=== PATIENT | female | born 1955 | race Two or more races ===

== ENCOUNTER 2020-02-15 09:45 | Inpatient (IN) | payer MEDICARE, OTHER ==
[2020-02-15] VITALS (7 sets, daily range): BP systolic 98–143; BP diastolic 70–90
[~2020-02-15] VITALS: Ht 162.6 cm; Wt 67.5 kg
--- NOTE | 2020-02-15 09:52 | NUR ---
ED Nurse Note: Pt from home and was brought in by ambulance due to dizziness x 1 week. Patient also experiences loss of appetite and bloatedness. Last bowel movement was stated as "long ago." Pt is AAO x4, follows commands with non labored breathing. Noted abdominal distension.
[2020-02-15] MEDS ORDERED: Omnipaque-300 100ml vial INJ PRN (10:15)
--- NOTE | 2020-02-15 10:16 | NUR ---
ED Nurse Note: Collected blood and urine then sent.
--- NOTE | 2020-02-15 10:20 | NUR ---
ED Nurse Note: Radiology Иван at the bed side for xray.
--- NOTE | 2020-02-15 10:30 | Emergency Room Report ---
History of Present Illness General Chief Complaint: Dizziness Source: Patient Present Illness HPI This patient states that she has felt lightheaded, fatigued and has had a lack of appetite for about the past week. She states that this is lightheadedness and not vertigo. She has had some nausea but denies vomiting. She denies fever or chills. She denies dysuria or hematuria. She denies abdominal pain. She denies headache or neck pain. She denies cough or congestion. She denies chest pain or shortness of breath. She denies trauma or falls. She has no other complaints. Allergies: Coded Allergies: No Known Allergies (Unverified , 02/15/20) COVID-19 Screening Contact w/high risk pt: No Experienced COVID-19 symptoms?: No COVID-19 Testing performed CHAUFFEUR: No Patient History Past Medical History: see triage record, HTN Social History: Denies: smoking, alcohol use, drug use Reviewed Nursing Documentation: PMH: Agreed; PSxH: Agreed Nursing Documentation-PMH Past Medical History: No History, Except For Hx Hypertension: Yes Review of Systems All Other Systems: negative except mentioned in HPI Physical Exam Vital Signs Date Time Temp Pulse Resp B/P (MAP) Pulse Ox O2 Delivery O2 Flow Rate FiO2 02/15/20 09:42 98.2 120 20 128/87 (101) 98 Room Air Sp02 EP Interpretation: reviewed, normal General Appearance: no apparent distress, alert, GCS 15, non-toxic Head: normocephalic, atraumatic Eyes: bilateral eye normal inspection, bilateral eye PERRL ENT: hearing grossly normal, normal pharynx, no angioedema, normal voice Neck: normal inspection, full range of motion, supple/symm/no masses Respiratory: chest non-tender, lungs clear, normal breath sounds, no respiratory distress, no retraction, no accessory muscle use, speaking full sentences Cardiovascular #1: no edema, tachycardia Gastrointestinal: normal bowel sounds, non tender, soft, no guarding, no rebound, distended Rectal: deferred Musculoskeletal: back normal, normal range of motion, gait/station normal, non- tender Neurologic: alert, motor strength/tone normal, oriented x3, sensory intact, responsive, speech normal Psychiatric: judgement/insight normal, memory normal, mood/affect normal, no suicidal/homicidal ideation Skin: no rash, normal color Medical Decision Making Diagnostic Impression: Primary Impression: Large bowel obstruction Additional Impression: Hypokalemia ER Course This patient presents with a nonspecific pain of lightheadedness and decreased appetite and fatigue. My differential diagnosis includes arrhythmia, [place], infection, anemia, electrolyte abnormality to name a few. On physical exam, the patient's abdomen is more distended than I would expect for her weight. Given this finding on exam, although nontender and no obvious mass on physical exam, I felt that I should obtain a CT of the abdomen and pelvis. When I inquired into how long the patient has had this distended abdomen, she states approximately a week, however, she then states that her primary physician had scheduled her for a colonoscopy. EKG had some nonspecific ST segment findings by me concerned for possible ischemia. Laboratory work-up showed significant hypokalemia. The patient was started on IV replacement potassium chloride. I suspect this is secondary to poor oral intake and possibly in combination with her use of hydrochlorothiazide. CT of the abdomen pelvis showed a dilated colon with a po ssible transition point at the recto-sigmoid transition. The patient is also cachectic and I am concerned she has undiagnosed colon cancer. The patient is admitted for further evaluation and treatment by gastroenterology and general surgery. This patient was evaluated in the context of the global COVID-19 pandemic, which necessitated consideration that the patient might be at risk for infection with the [id number] virus that causes COVID-19. Institutional protocols and algorithms that pertain to the evaluation of patients at risk for COVID-19 and the state of rapid change based on information released by multiple regulatory bodies including the CDC and federal and state organizations. These policies and algorithms were followed during the patient's care in the ED. Laboratory Tests Test 02/15/20 10:10 White Blood Count 9.1 K/UL (4.8-10.8) Red Blood Count 4.18 M/UL (4.20-5.40) L Hemoglobin 12.1 G/DL (12.0-16.0) Hematocrit 36.9 % (37.0-47.0) L Mean Corpuscular Volume 88 FL (80-99) Mean Corpuscular Hemoglobin 28.8 PG (27.0-31.0) Mean Corpuscular Hemoglobin Concent 32.7 G/DL (32.0-36.0) Red Cell Distribution Width 13.4 % (11.6-14.8) Platelet Count 212 K/UL (150-450) Mean Platelet Volume 6.5 FL (6.5-10.1) Neutrophils (%) (Auto) 82.2 % (45.0-75.0) H Lymphocytes (%) (Auto) 11.9 % (20.0-45.0) L Monocytes (%) (Auto) 5.0 % (1.0-10.0) Eosinophils (%) (Auto) 0.0 % (0.0-3.0) Basophils (%) (Auto) 0.8 % (0.0-2.0) Prothrombin Time 13.6 SEC (9.30-11.50) H Prothrombin Time INR 1.3 (0.9-1.1) H Activated Partial Thromboplast Time 21 SEC (23-33) L Urine Color Yellow Urine Appearance Slightly cloudy Urine pH 6 (4.5-8.0) Urine Specific [place] 1.015 (1.005-1.035) Urine Protein 3+ (NEGATIVE) H Urine Glucose (UA) Negative (NEGATIVE) Urine Ketones 3+ (NEGATIVE) H Urine Blood 4+ (NEGATIVE) H Urine Nitrite Negative (NEGATIVE) Urine Bilirubin 2+ (NEGATIVE) H Urine Ictotest Negative (NEGATIVE) Urine Urobilinogen 4 MG/DL (0.0-1.0) H Urine Leukocyte Esterase 1+ (NEGATIVE) H Urine RBC 15-20 /HPF (0 - 2) H Urine WBC 2-4 /HPF (0 - 2) Urine Squamous Epithelial Cells Few /LPF (NONE/OCC) Urine Bacteria Few /HPF (NONE) Urine Mucus Few /LPF (NONE/OCC) H Sodium Level 144 MMOL/L (136-145) Potassium Level 2.0 MMOL/L (3.5-5.1) *L Chloride Level 93 MMOL/L (98-107) L Carbon Dioxide Level 32 MMOL/L (21-32) Anion Gap 20 mmol/L (5-15) H Blood Urea Nitrogen 27 mg/dL (7-18) H Creatinine 1.4 MG/DL (0.55-1.30) H Estimated Glomerular Filtration Rate 37.6 mL/min (>60) Glucose Level 143 MG/DL (74-106) H Calcium Level 8.5 MG/DL (8.5-10.1) Total Bilirubin 1.2 MG/DL (0.2-1.0) H Direct Bilirubin 0.3 MG/DL (0.0-0.3) Aspartate Amino Transferase (AST) 35 U/L (15-37) Alanine Aminotransferase (ALT) 18 U/L (12-78) Alkaline Phosphatase 60 U/L (46-116) Troponin I 0.054 ng/mL (0.000-0.056) Total Protein 6.4 G/DL (6.4-8.2) Albumin 3.5 G/DL (3.4-5.0) Globulin 2.9 g/dL Thyroid Stimulating Hormone (TSH) 1.756 uiU/mL (0.358-3.740) Free Thyroxine 1.37 NG/DL (0.76-1.46) Free Triiodothyronine 1.3 pg/mL (2.3-4.2) L Microbiology Date/Time Source Procedure Growth Status 02/15/20 11:00 Nasopharynx SARS-CoV-2 RdRp Gene Assay - Final Complete EKG Diagnostic Results Rate: tachycardiac Rhythm: other - S.tachycardia ST Segments: other - NSST depressions in leads V2, V3, V4 more significantly with diffuse ST flattening. Rhythm Strip Diag. Results EP Interpretation: yes Rate: 90's Rhythm: NSR, no PVC's, no ectopy Chest X-Ray Diagnostic Results Chest X-Ray Diagnostic Results : Chest X-Ray Ordered: Yes # of Views/Limited/Complete: 1 View Indication: Other EP Interpretation: Yes Interpretation: no consolidation, no effusion, no pneumothorax, no acute cardiopulmonary disease Impression: No acute disease Electronically Signed by: Zahra Portillo DO CT/MRI/US Diagnostic Results CT/MRI/US Diagnostic Results : Imaging Test Ordered: CT abd/pelvis Impression IMPRESSION: SEVERE COLONIC DISTENTION WITH AIR-FLUID LEVELS AND STOOL DEBRIS. THERE IS APPARENT TRANSITION AT THE RECTOSIGMOID JUNCTION WITH A RELATIVELY EMPTY RECTAL VAULT WITH ONLY SMALL AMOUNT OF STOOL. NO DEFINITE DISCERNIBLE MASS AT THE TRANSITION POINT. RECOMMEND GI CONSULTATION AND CONSIDER COLONOSCOPY. Last Vital Signs Date Time Temp Pulse Resp B/P (MAP) Pulse Ox O2 Delivery O2 Flow Rate FiO2 02/15/20 09:52 98.2 110 16 98/71 98 Room Air Disposition: ADMITTED INPATIENT Condition: Serious Referrals: NON PHYSICIAN (PCP) Zarha Portillo DO Feb 15, 2020 10:30
[2020-02-15 10:37] LABS: APPEARANCE,URINE SLIGHTLY CLOUDY; BILIRUBIN, URINE 2+ (NEGATIVE); GLUCOSE, URINE (UA) NEGATIVE (NEGATIVE); KETONES,URINE 3+ (NEGATIVE); LEUKOCYTE ESTERASE ,URINE 1+ (NEGATIVE); NITRITE,URINE NEGATIVE (NEGATIVE); PH,URINE 6 (4.5-8.0); PROTEIN,URINE 3+ (NEGATIVE); UROBILINOGEN,URINE 4 MG/DL (0.0-1.0)
[2020-02-15 10:38] LABS: BASOPHILS % (AUTO) 0.8 % (0.0-2.0); HEMATOCRIT 36.9 % (37.0-47.0); HEMOGLOBIN 12.1 G/DL (12.0-16.0); LYMPHOCYTES % (AUTO) 11.9 % (20.0-45.0); MEAN CORPUSCULAR VOLUME 88 FL (80-99); NEUTROPHILS % (AUTO) 82.2 % (45.0-75.0); PLATELET COUNT 212 K/UL (150-450); RED BLOOD COUNT 4.18 M/UL (4.20-5.40); RED CELL DISTRIBUTION WIDTH 13.4 % (11.6-14.8); WHITE BLOOD COUNT 9.1 K/UL (4.8-10.8)
[2020-02-15 10:43] LABS: COLOR,URINE YELLOW
[2020-02-15 10:51] LABS: INR 1.3 (0.9-1.1)
[2020-02-15 10:54] LABS: ALBUMIN 3.5 G/DL (3.4-5.0); ASPARTATE AMINO TRANSFERASE 35 U/L (15-37); BLOOD UREA NITROGEN 27 mg/dL (7-18); CALCIUM 8.5 MG/DL (8.5-10.1); CREATININE 1.4 MG/DL (0.55-1.30)
[2020-02-15 11:18] LABS: ALKALINE PHOSPHATASE 60 U/L (46-116); BILIRUBIN,TOTAL 1.2 MG/DL (0.2-1.0)
--- NOTE | 2020-02-15 11:23 | Diagnostic Imaging Report ---
Procedure: XRAY Chest 1v Reason for study: Shortness of breath. Comparison films: None. FINDINGS: A single one view chest is obtained. Vascularity is normal. The lung thomson are clear bilaterally. Cardiac and mediastinal silhouette are within normal limits. CP angles are sharp. The bony thorax appear unremarkable. IMPRESSION: NO ACUTE CARDIOPULMONARY DISEASE.
[2020-02-15 11:27] LABS: ALANINE AMINOTRANSFERASE 18 U/L (12-78); ANION GAP 20 mmol/L (5-15); CARBON DIOXIDE 32 MMOL/L (21-32); CHLORIDE 93 MMOL/L (98-107); SODIUM 144 MMOL/L (136-145)
--- NOTE | 2020-02-15 11:47 | Diagnostic Imaging Report ---
EXAM: CT CT Abdomen Pelvis w/Contrast INDICATION: Abdominal pain. COMPARISON: None TECHNIQUE: Axial images were obtained through the abdomen pelvis with intravenous contrast. Sagittal and coronal reformats are generated. All CT scans at this facility are performed using dose modulation techniques as appropriate to a performed exam including the following: automated exposure control with adjustment of the mA and/or kV according to patient size. RADIATION DOSE: CTDIvol: 2.9 mGy DLP: 137 mGy-cm Dose information generated by the CT scanner is available in PACS. FINDINGS: Mild atelectasis noted right lung base. There are several circumscribed low-density nonenhancing cysts noted in the liver. The spleen is homogeneous. Gallbladder is without sludge or stone and there is no wall thickening. The pancreas is unremarkable. Adrenals are normal in morphology. The kidneys are normal in size, shape and axis. Small bowel loops are nondistended. The dominant abnormality is severe colonic distention containing air-fluid levels and stool debris. Dilated colon extends down to the rectosigmoid junction where there is an apparent transition. The rectal vault is nondistended with only a small amount of stool. No definite discernible mass is detected there is There is no free fluid or free air. No pathologic adenopathy demonstrated. Bladder is empty. There is no suspicious superficial soft tissue or osseous abnormality. IMPRESSION: SEVERE COLONIC DISTENTION WITH AIR-FLUID LEVELS AND STOOL DEBRIS. THERE IS APPARENT TRANSITION AT THE RECTOSIGMOID JUNCTION WITH A RELATIVELY EMPTY RECTAL VAULT WITH ONLY SMALL AMOUNT OF STOOL. NO DEFINITE DISCERNIBLE MASS AT THE TRANSITION POINT. RECOMMEND GI CONSULTATION AND CONSIDER COLONOSCOPY.
[2020-02-15 11:54] LABS: BILIRUBIN,DIRECT 0.3 MG/DL (0.0-0.3)
--- NOTE | 2020-02-15 11:57 | NUR ---
ED Nurse Note: JORDAN MADE AWARE OF THE PT.'S POTASSIUM LEVEL
[2020-02-15] MEDS ORDERED: HYDROCHLOROTHIA25 MG ORAL (12:09)
--- NOTE | 2020-02-15 13:55 | NUR ---
ED Nurse Note: Patient is resting on bed with no distress. IV fluids and potassium drip are running per ERMD order. Blankets provided for comfort.
--- NOTE | 2020-02-15 15:50 | NUR ---
ED Nurse Note: Report given to Nuvia GARZON of telemetry unit.
--- NOTE | 2020-02-15 15:52 | NUR ---
NURSE NOTES: RECEIVED REPORT FROM JOURDAN GARZON IN ER. AWAITING EVS TO CLEAN THE ROOM WITH CLEAN BED. WILL CALL ER SOON IT'S DONE.
--- NOTE | 2020-02-15 15:53 | Consultation ---
History of Present Illness General Date patient seen: Feb 15, 2020 Time patient seen: 15:51 Chief Complaint: Dizziness Present Illness HPI This is a very pleasant 64-year-old female who presented to [facility] with complaints of decreased appetite dizziness and abdominal bloating. On examination was identified to have significant abdominal distention and CT was ordered identifying colonic distention with transition point potential large bowel obstruction. Surgery was called to evaluate and assist with care. Patient seen, patient evaluated, chart reviewed. Patient states that she feels well does not have any pain has been able to tolerate diet recently is beginning to develop worsening nausea and throwing up of liquid clear. Cannot recall last bowel movement or flatus. Has not been eating very well. States distention ongoing for a little bit longer than she can remember. Allergies: Coded Allergies: No Known Allergies (Unverified , 02/15/20) Medication History Scheduled Hydrochlorothiazide* (Hydrochlorothiazide*), 25 MG ORAL DAILY, (Reported) Patient History Healthcare decision maker Resuscitation status Advanced Directive on File Review of Systems Constitutional: Reports: no symptoms Eye: Reports: no symptoms ENT: Reports: no symptoms Respiratory: Reports: no symptoms Cardiovascular: Reports: no symptoms Gastrointestinal: Reports: abdominal pain, constipation Genitourinary: Reports: no symptoms Musculoskeletal: Reports: no symptoms Skin: Reports: no symptoms Psychiatric: Reports: no symptoms Neurological: Reports: dizziness Endocrine: Reports: no symptoms Hematologic/Lymphatic: Reports: no symptoms Physical Exam General Appearance: no apparent distress, alert Lines, tubes and drains: peripheral HEENT: normocephalic, atraumatic Neck: non-tender, normal alignment, supple, normal inspection Respiratory/Chest: chest wall non-tender, lungs clear, normal breath sounds, no respiratory distress, no accessory muscle use Cardiovascular/Chest: normal peripheral pulses, normal rate, regular rhythm Abdomen: normal bowel sounds, non tender, soft, no organomegaly, no mass Extremities: normal range of motion, non-tender, normal inspection, no calf tenderness, normal capillary refill, non-pitting Skin Exam: normal pigmentation, warm/dry, cyanotic 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, no motor/sensory deficits Last 24 Hour Vital Signs Date Time Temp Pulse Resp B/P (MAP) Pulse Ox O2 Delivery O2 Flow Rate FiO2 02/15/20 15:41 98.1 85 16 142/90 98 Room Air 02/15/20 13:55 97.9 88 18 140/84 97 Room Air 02/15/20 12:04 98.5 98 15 140/85 99 Room Air 02/15/20 09:52 98.2 110 16 98/71 98 Room Air 02/15/20 09:52 110 16 Room Air 02/15/20 09:42 98.2 120 20 128/87 (101) 98 Room Air Laboratory Tests Test 02/15/20 10:10 White Blood Count 9.1 K/UL (4.8-10.8) Red Blood Count 4.18 M/UL (4.20-5.40) L Hemoglobin 12.1 G/DL (12.0-16.0) Hematocrit 36.9 % (37.0-47.0) L Mean Corpuscular Volume 88 FL (80-99) Mean Corpuscular Hemoglobin 28.8 PG (27.0-31.0) Mean Corpuscular Hemoglobin Concent 32.7 G/DL (32.0-36.0) Red Cell Distribution Width 13.4 % (11.6-14.8) Platelet Count 212 K/UL (150-450) Mean Platelet Volume 6.5 FL (6.5-10.1) Neutrophils (%) (Auto) 82.2 % (45.0-75.0) H Lymphocytes (%) (Auto) 11.9 % (20.0-45.0) L Monocytes (%) (Auto) 5.0 % (1.0-10.0) Eosinophils (%) (Auto) 0.0 % (0.0-3.0) Basophils (%) (Auto) 0.8 % (0.0-2.0) Prothrombin Time 13.6 SEC (9.30-11.50) H Prothromb Time International Ratio 1.3 (0.9-1.1) H Activated Partial Thromboplast Time 21 SEC (23-33) L Urine Color Yellow Urine Appearance Slightly cloudy Urine pH 6 (4.5-8.0) Urine Specific [place] 1.015 (1.005-1.035) Urine Protein 3+ (NEGATIVE) H Urine Glucose (UA) Negative (NEGATIVE) Urine Ketones 3+ (NEGATIVE) H Urine Blood 4+ (NEGATIVE) H Urine Nitrite Negative (NEGATIVE) Urine Bilirubin 2+ (NEGATIVE) H Urine Ictotest Negative (NEGATIVE) Urine Urobilinogen 4 MG/DL (0.0-1.0) H Urine Leukocyte Esterase 1+ (NEGATIVE) H Urine RBC 15-20 /HPF (0 - 2) H Urine WBC 2-4 /HPF (0 - 2) Urine Squamous Epithelial Cells Few /LPF (NONE/OCC) Urine Bacteria Few /HPF (NONE) Urine Mucus Few /LPF (NONE/OCC) H Sodium Level 144 MMOL/L (136-145) Potassium Level 2.0 MMOL/L (3.5-5.1) *L Chloride Level 93 MMOL/L (98-107) L Carbon Dioxide Level 32 MMOL/L (21-32) Anion Gap 20 mmol/L (5-15) H Blood Urea Nitrogen 27 mg/dL (7-18) H Creatinine 1.4 MG/DL (0.55-1.30) H Estimat Glomerular Filtration Rate 37.6 mL/min (>60) Glucose Level 143 MG/DL (74-106) H Calcium Level 8.5 MG/DL (8.5-10.1) Total Bilirubin 1.2 MG/DL (0.2-1.0) H Direct Bilirubin 0.3 MG/DL (0.0-0.3) Aspartate Amino Transf (AST/SGOT) 35 U/L (15-37) Alanine Aminotransferase (ALT/SGPT) 18 U/L (12-78) Alkaline Phosphatase 60 U/L (46-116) Troponin I 0.054 ng/mL (0.000-0.056) Total Protein 6.4 G/DL (6.4-8.2) Albumin 3.5 G/DL (3.4-5.0) Globulin 2.9 g/dL Thyroid Stimulating Hormone (TSH) 1.756 uiU/mL (0.358-3.740) Free Thyroxine 1.37 NG/DL (0.76-1.46) Free Triiodothyronine 1.3 pg/mL (2.3-4.2) L Microbiology Date/Time Source Procedure Growth Status 02/15/20 11:00 Nasopharynx SARS-CoV-2 RdRp Gene Assay - Final Complete Height (Feet): 5 Height (Inches): 4.00 Weight (Pounds): 110 Medications Current Medications Medications (Trade) Dose Ordered Sig/Fozia Route PRN Reason Start Time Stop Time Status Last Admin Dose Admin Iohexol (OMNIPAQUE-300 100ml) 100 ml NOW PRN INJ Radiology Procedure 02/15/20 10:15 02/17/20 10:03 Assessment/Plan Status: stable Assessment/Plan: Assessment (1) Large bowel obstruction (2) Hypokalemia (3) Lightheaded (4) Palpitations (5) Dizziness Plan: clear to proceed with colonoscopy Low risk of MACE <0.9 percent Continue IV fluids Outpatient Echocardiogram/stress test per routine Roby Reyes MD Feb 15, 2020 15:53
--- NOTE | 2020-02-15 16:11 | NUR ---
ED Nurse Note: patient transferred to telemetry unit with all her belongings. Stable for transport.
[2020-02-15] MEDS ORDERED: Hydromorphone 0.5mg/0.5ml inj IVP PRN (16:15)
--- NOTE | 2020-02-15 17:12 | NUR ---
NURSE NOTES: ADMIT PATIENT FROM ER VIA GURNEY TO TELE RM 201-2. PATIENT IS AAO X4, DENIES ANY PAIN AT THIS TIME. NOTED PATIENT HAS A DISTENDED ABDOMEN, DENIES ANY PAIN. SKIN IS INTACT AND WARM ON TOUCH. 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 PATIENT BELONGING LIST ACKNOWLEDGED AND SIGNED BY BOTH NURSES. NOTIFIED DR. LUCIA OF PATIENT'S ADMISSION. ADMISSION ORDER RECEIVED AND CARRIED OUT. PATIENT IS NPO. WILL CONTINUE TO MONITOR.
--- NOTE | 2020-02-15 18:01 | Consultation ---
History of Present Illness General Date patient seen: Feb 15, 2020 Reason for Hospitalization: Dizziness Present Illness HPI This is a very pleasant 64-year-old female who presented to [facility] with complaints of decreased appetite dizziness and abdominal bloating. On examination was identified to have significant abdominal distention and CT was ordered identifying colonic distention with transition point potential large bowel obstruction. Surgery was called to evaluate and assist with care. Patient seen, patient evaluated, chart reviewed. Patient states that she feels well does not have any pain has been able to tolerate diet recently is beginning to develop worsening nausea and throwing up of liquid clear. Cannot recall last bowel movement or flatus. Has not been eating very well. States distention ongoing for a little bit longer than she can remember. CT reviewed labs reviewed Allergies: Coded Allergies: No Known Allergies (Unverified , 02/15/20) COVID-19 Screening Contact w/high risk pt: No Experienced COVID-19 symptoms?: No Medication History Scheduled Hydrochlorothiazide* (Hydrochlorothiazide*), 25 MG ORAL DAILY, (Reported) Patient History History Provided By: Patient, Medical Record, PMD Healthcare decision maker Resuscitation status Advanced Directive on File Past Medical/Surgical History Past Medical/Surgical History: (1) Lightheaded (2) Hypokalemia (3) Large bowel obstruction Review of Systems Review of Symptoms General ROS: no weight loss or fever Psychological ROS: no depression or mood changes, no memory loss Ophthalmic ROS: no visual changes or eye irritation ENT ROS: no nasal congestion, hearing loss, dizziness Allergy and Immunology ROS: no allergic symptoms or urticaria Hematological and Lymphatic ROS: no swollen glands, unusual bleeding or bruising Endocrine ROS: no polyuria, polydipsia, weight changes, temperature intolerance Respiratory ROS: no cough, shortness of breath, or wheezing Cardiovascular ROS: no chest pain or dyspnea on exertion Gastrointestinal ROS: denies abdominal pain, bright red blood in stool. Musculoskeletal ROS: no myalgias or arthralgias Neurological ROS: no TIA or stroke symptoms Dermatological ROS: no new or changing skin lesions, rashes or pruritis Physical Exam Physical Exam General appearance: alert, cooperative, no distress, appears stated age Head: Normocephalic, without obvious abnormality, atraumatic Eyes: conjunctivae/corneas clear. PERRL, EOM's intact. Fundi benign Throat: Lips, mucosa, and tongue normal. Teeth and gums normal Neck: supple, symmetrical, trachea midline, no adenopathy, thyroid: not enlarged, symmetric, no tenderness/mass/nodules, no carotid bruit and no JVD Lungs: clear to auscultation bilaterally Heart: regular rate and rhythm, S1, S2 normal, no murmur, click, rub or gallop Abdomen: soft, non-tender. Bowel sounds decreased. gaseous distended No masses , no organomegaly Extremities: extremities normal, atraumatic, no cyanosis or edema Pulses: 2+ and symmetric Skin: Skin color, texture, turgor normal. No rashes or lesions Neurologic: Grossly normal Last 24 Hour Vital Signs Date Time Temp Pulse Resp B/P (MAP) Pulse Ox O2 Delivery O2 Flow Rate FiO2 02/15/20 17:03 97.7 71 18 143/80 (101) 98 02/15/20 16:59 Room Air 02/15/20 16:49 Room Air 02/15/20 16:11 98.1 87 15 138/89 99 Room Air 02/15/20 16:00 97.7 82 18 140/76 (97) 98 02/15/20 16:00 82 02/15/20 15:41 98.1 85 16 142/90 98 Room Air 02/15/20 13:55 97.9 88 18 140/84 97 Room Air 02/15/20 12:04 98.5 98 15 140/85 99 Room Air 02/15/20 09:52 98.2 110 16 98/71 98 Room Air 02/15/20 09:52 110 16 Room Air 02/15/20 09:42 98.2 120 20 128/87 (101) 98 Room Air Laboratory Tests Test 02/15/20 10:10 White Blood Count 9.1 K/UL (4.8-10.8) Red Blood Count 4.18 M/UL (4.20-5.40) L Hemoglobin 12.1 G/DL (12.0-16.0) Hematocrit 36.9 % (37.0-47.0) L Mean Corpuscular Volume 88 FL (80-99) Mean Corpuscular Hemoglobin 28.8 PG (27.0-31.0) Mean Corpuscular Hemoglobin Concent 32.7 G/DL (32.0-36.0) Red Cell Distribution Width 13.4 % (11.6-14.8) Platelet Count 212 K/UL (150-450) Mean Platelet Volume 6.5 FL (6.5-10.1) Neutrophils (%) (Auto) 82.2 % (45.0-75.0) H Lymphocytes (%) (Auto) 11.9 % (20.0-45.0) L Monocytes (%) (Auto) 5.0 % (1.0-10.0) Eosinophils (%) (Auto) 0.0 % (0.0-3.0) Basophils (%) (Auto) 0.8 % (0.0-2.0) Prothrombin Time 13.6 SEC (9.30-11.50) H Prothromb Time International Ratio 1.3 (0.9-1.1) H Activated Partial Thromboplast Time 21 SEC (23-33) L Urine Color Yellow Urine Appearance Slightly cloudy Urine pH 6 (4.5-8.0) Urine Specific [place] 1.015 (1.005-1.035) Urine Protein 3+ (NEGATIVE) H Urine Glucose (UA) Negative (NEGATIVE) Urine Ketones 3+ (NEGATIVE) H Urine Blood 4+ (NEGATIVE) H Urine Nitrite Negative (NEGATIVE) Urine Bilirubin 2+ (NEGATIVE) H Urine Ictotest Negative (NEGATIVE) Urine Urobilinogen 4 MG/DL (0.0-1.0) H Urine Leukocyte Esterase 1+ (NEGATIVE) H Urine RBC 15-20 /HPF (0 - 2) H Urine WBC 2-4 /HPF (0 - 2) Urine Squamous Epithelial Cells Few /LPF (NONE/OCC) Urine Bacteria Few /HPF (NONE) Urine Mucus Few /LPF (NONE/OCC) H Sodium Level 144 MMOL/L (136-145) Potassium Level 2.0 MMOL/L (3.5-5.1) *L Chloride Level 93 MMOL/L (98-107) L Carbon Dioxide Level 32 MMOL/L (21-32) Anion Gap 20 mmol/L (5-15) H Blood Urea Nitrogen 27 mg/dL (7-18) H Creatinine 1.4 MG/DL (0.55-1.30) H Estimat Glomerular Filtration Rate 37.6 mL/min (>60) Glucose Level 143 MG/DL (74-106) H Calcium Level 8.5 MG/DL (8.5-10.1) Total Bilirubin 1.2 MG/DL (0.2-1.0) H Direct Bilirubin 0.3 MG/DL (0.0-0.3) Aspartate Amino Transf (AST/SGOT) 35 U/L (15-37) Alanine Aminotransferase (ALT/SGPT) 18 U/L (12-78) Alkaline Phosphatase 60 U/L (46-116) Troponin I 0.054 ng/mL (0.000-0.056) Total Protein 6.4 G/DL (6.4-8.2) Albumin 3.5 G/DL (3.4-5.0) Globulin 2.9 g/dL Thyroid Stimulating Hormone (TSH) 1.756 uiU/mL (0.358-3.740) Free Thyroxine 1.37 NG/DL (0.76-1.46) Free Triiodothyronine 1.3 pg/mL (2.3-4.2) L Microbiology Date/Time Source Procedure Growth Status 02/15/20 11:00 Nasopharynx SARS-CoV-2 RdRp Gene Assay - Final Complete Height (Feet): 5 Height (Inches): 4.00 Weight (Pounds): 110 Medications Current Medications Medications (Trade) Dose Ordered Sig/Fozia Route PRN Reason Start Time Stop Time Status Last Admin Dose Admin Hydromorphone HCl (Dilaudid) 0.5 mg Q4H PRN IVP For Pain 02/15/20 16:15 02/22/20 16:14 Iohexol (OMNIPAQUE-300 100ml) 100 ml NOW PRN INJ Radiology Procedure 02/15/20 10:15 02/17/20 10:03 Ondansetron HCl (Zofran) 4 mg Q6H PRN IVP Nausea & Vomiting 02/15/20 16:15 03/16/20 16:14 Potassium Chloride/Sodium Chloride 1,000 ml @ 50 mls/hr Q20H IV 02/15/20 18:00 03/16/20 17:59 Assessment/Plan Problem List: (1) Lightheaded ICD Codes: R42 - Dizziness and giddiness SNOMED: 242986752 (2) Hypokalemia ICD Codes: E87.6 - Hypokalemia SNOMED: 02022908 (3) Large bowel obstruction Assessment & Plan: 64-year-old female with abdominal distention potential large bowel obstruction. Afebrile, hemodynamic stable, labs noted no leukocytosis no pain no bleeding. No prior abdominal surgeries. Nausea and emesis clear liquid. Decreased appetite. Cannot recall last flatus or BM. CT as below. No direct mass or abnormality identified but there is absolutely identifiable transition at the rectosigmoid area with proximal dilatation. A colonoscopy is warranted but though would be with definitive risk of potential perforation. GI consult pending. Replace electrolytes. N.p.o. IV fluids will await scope for findings. Conceivably may require surgical intervention. Thank you for let me participate in patient's care will follow with recommendations There are several circumscribed low-density nonenhancing cysts noted in the liver. The spleen is homogeneous. Gallbladder is without sludge or stone and there is no wall thickening. The pancreas is unremarkable. Adrenals are normal in morphology. The kidneys are normal in size, shape and axis. Small bowel loops are nondistended. The dominant abnormality is severe colonic distention containing air-fluid levels and stool debris. Dilated colon extends down to the rectosigmoid junction where there is an apparent transition. The rectal vault is nondistended with only a small amount of stool. No definite discernible mass is detected there is There is no free fluid or free air. No pathologic adenopathy demonstrated. Bladder is empty. There is no suspicious superficial soft tissue or osseous abnormality. IMPRESSION: SEVERE COLONIC DISTENTION WITH AIR-FLUID LEVELS AND STOOL DEBRIS. THERE IS APPARENT TRANSITION AT THE RECTOSIGMOID JUNCTION WITH A RELATIVELY EMPTY RECTAL VAULT WITH ONLY SMALL AMOUNT OF STOOL. NO DEFINITE DISCERNIBLE MASS AT THE TRANSITION POINT. RECOMMEND GI CONSULTATION AND CONSIDER COLONOSCOPY. ICD Codes: K56.609 - Unspecified intestinal obstruction, unspecified as to partial versus complete obstruction SNOMED: 820012663 Swapnil Brito Feb 15, 2020 18:01
[2020-02-15] MEDS: NS w/KCl 20mEq 1000ml 1,000 ML IV SCH (18:19)
--- NOTE | 2020-02-15 18:37 | NUR ---
NURSE HAND-OFF REPORT: Important Events on Shift: New Admission Patient Status: Stable Diet: NPO Pending Orders: Pending Results/Labs:Y Pending notification:B Latest Vital Signs: Temperature 97.7 , Pulse 71 , B/P 143 /80 , Respiratory Rate 18 , O2 SAT 98 , Room Air, O2 Flow Rate . Vital Sign Comment: Stable EKG Rhythm: Sinus Rhythm Rhythm change?: N MD Notified?: - MD Response: Latest Scherer Fall Score: 20 Fall Risk: Low Risk Safety Measures: Call light Within Reach, Bed Alarm Zone 3, Side Rails Side Rails x3, Bed position Low and Locked. Fall Precautions: Yellow Socks Yellow Gown Door Sign Patient Fall Education Report given to . Addendum: 02/15/20 at 1906 by ZEN MARTIN RN Report given Sobeida GARZON
--- NOTE | 2020-02-15 19:30 | NUR ---
NURSE NOTES: Received report from RYANN Pedersen. Patient is awake, alert and oriented x 4. On NPO except meds/ice chips. On room air, with no shortness of breath reported, sating 95%. machine lead burner is in place, shows sinus rhythm and no chest pain complaints at this time. IV site is on left AC g-20, running fluid of NS + 20 meqs KCL @ 50cc/hour that is patent and intact. Patient is on bedrest. Safety measures are in place, bed in lowest and locked position, side rails up x 2. Call light button and bedside table within reach, instructed to call for any assistance needed. Will continue plan of care.
--- NOTE | 2020-02-15 22:08 | Consultation ---
History of Present Illness General Chief Complaint: Dizziness Present Illness HPI 64-year-old female who presented to [facility] with complaints of decreased appetite dizziness and abdominal bloating. On examination was identified to have significant abdominal distention and CT was ordered i dentifying colonic distention with transition point potential large bowel obstruction. Surgery was called to evaluate and assist with care. Patient seen, patient evaluated, chart reviewed. Patient states that she feels well does not have any pain has been able to tolerate diet recently is beginning to develop worsening nausea and throwing up of liquid clear. Cannot recall last bowel movement or flatus. Has not been eating very well. States distention ongoing for a little bit longer than she can remember. Allergies: Coded Allergies: No Known Allergies (Unverified , 02/15/20) Medication History Scheduled Hydrochlorothiazide* (Hydrochlorothiazide*), 25 MG ORAL DAILY, (Reported) Patient History Healthcare decision maker Resuscitation status Advanced Directive on File Review of Systems All Other Systems: negative except mentioned in HPI Physical Exam General Appearance: no apparent distress, lethargic Lines, tubes and drains: peripheral HEENT: normocephalic, atraumatic Neck: non-tender, normal alignment Respiratory/Chest: chest wall non-tender, lungs clear Cardiovascular/Chest: normal peripheral pulses, normal rate Abdomen: hypoactive bowel sounds, distended Extremities: no edema Neurologic: alert, oriented x 3 Last 24 Hour Vital Signs Date Time Temp Pulse Resp B/P (MAP) Pulse Ox O2 Delivery O2 Flow Rate FiO2 02/15/20 21:00 Room Air 02/15/20 20:00 111 02/15/20 20:00 97.9 91 19 114/70 (85) 100 02/15/20 17:03 97.7 71 18 143/80 (101) 98 02/15/20 16:59 Room Air 02/15/20 16:49 Room Air 02/15/20 16:11 98.1 87 15 138/89 99 Room Air 02/15/20 16:00 97.7 82 18 140/76 (97) 98 02/15/20 16:00 82 02/15/20 15:41 98.1 85 16 142/90 98 Room Air 02/15/20 13:55 97.9 88 18 140/84 97 Room Air 02/15/20 12:04 98.5 98 15 140/85 99 Room Air 02/15/20 09:52 98.2 110 16 98/71 98 Room Air 02/15/20 09:52 110 16 Room Air 02/15/20 09:42 98.2 120 20 128/87 (101) 98 Room Air Laboratory Tests Test 02/15/20 10:10 White Blood Count 9.1 K/UL (4.8-10.8) Red Blood Count 4.18 M/UL (4.20-5.40) L Hemoglobin 12.1 G/DL (12.0-16.0) Hematocrit 36.9 % (37.0-47.0) L Mean Corpuscular Volume 88 FL (80-99) Mean Corpuscular Hemoglobin 28.8 PG (27.0-31.0) Mean Corpuscular Hemoglobin Concent 32.7 G/DL (32.0-36.0) Red Cell Distribution Width 13.4 % (11.6-14.8) Platelet Count 212 K/UL (150-450) Mean Platelet Volume 6.5 FL (6.5-10.1) Neutrophils (%) (Auto) 82.2 % (45.0-75.0) H Lymphocytes (%) (Auto) 11.9 % (20.0-45.0) L Monocytes (%) (Auto) 5.0 % (1.0-10.0) Eosinophils (%) (Auto) 0.0 % (0.0-3.0) Basophils (%) (Auto) 0.8 % (0.0-2.0) Prothrombin Time 13.6 SEC (9.30-11.50) H Prothromb Time International Ratio 1.3 (0.9-1.1) H Activated Partial Thromboplast Time 21 SEC (23-33) L Urine Color Yellow Urine Appearance Slightly cloudy Urine pH 6 (4.5-8.0) Urine Specific [place] 1.015 (1.005-1.035) Urine Protein 3+ (NEGATIVE) H Urine Glucose (UA) Negative (NEGATIVE) Urine Ketones 3+ (NEGATIVE) H Urine Blood 4+ (NEGATIVE) H Urine Nitrite Negative (NEGATIVE) Urine Bilirubin 2+ (NEGATIVE) H Urine Ictotest Negative (NEGATIVE) Urine Urobilinogen 4 MG/DL (0.0-1.0) H Urine Leukocyte Esterase 1+ (NEGATIVE) H Urine RBC 15-20 /HPF (0 - 2) H Urine WBC 2-4 /HPF (0 - 2) Urine Squamous Epithelial Cells Few /LPF (NONE/OCC) Urine Bacteria Few /HPF (NONE) Urine Mucus Few /LPF (NONE/OCC) H Sodium Level 144 MMOL/L (136-145) Potassium Level 2.0 MMOL/L (3.5-5.1) *L Chloride Level 93 MMOL/L (98-107) L Carbon Dioxide Level 32 MMOL/L (21-32) Anion Gap 20 mmol/L (5-15) H Blood Urea Nitrogen 27 mg/dL (7-18) H Creatinine 1.4 MG/DL (0.55-1.30) H Estimat Glomerular Filtration Rate 37.6 mL/min (>60) Glucose Level 143 MG/DL (74-106) H Calcium Level 8.5 MG/DL (8.5-10.1) Total Bilirubin 1.2 MG/DL (0.2-1.0) H Direct Bilirubin 0.3 MG/DL (0.0-0.3) Aspartate Amino Transf (AST/SGOT) 35 U/L (15-37) Alanine Aminotransferase (ALT/SGPT) 18 U/L (12-78) Alkaline Phosphatase 60 U/L (46-116) Troponin I 0.054 ng/mL (0.000-0.056) Total Protein 6.4 G/DL (6.4-8.2) Albumin 3.5 G/DL (3.4-5.0) Globulin 2.9 g/dL Thyroid Stimulating Hormone (TSH) 1.756 uiU/mL (0.358-3.740) Free Thyroxine 1.37 NG/DL (0.76-1.46) Free Triiodothyronine 1.3 pg/mL (2.3-4.2) L Microbiology Date/Time Source Procedure Growth Status 02/15/20 11:00 Nasopharynx SARS-CoV-2 RdRp Gene Assay - Final Complete Height (Feet): 5 Height (Inches): 4.00 Weight (Pounds): 110 Medications Current Medications Medications (Trade) Dose Ordered Sig/Fozia Route PRN Reason Start Time Stop Time Status Last Admin Dose Admin Hydromorphone HCl (Dilaudid) 0.5 mg Q4H PRN IVP For Pain 9/15/20 16:15 02/22/20 16:14 Iohexol (OMNIPAQUE-300 100ml) 100 ml NOW PRN INJ Radiology Procedure 02/15/20 10:15 02/17/20 10:03 Ondansetron HCl (Zofran) 4 mg Q6H PRN IVP Nausea & Vomiting 02/15/20 16:15 03/16/20 16:14 Potassium Chloride/Sodium Chloride 1,000 ml @ 50 mls/hr Q20H IV 02/15/20 18:00 03/16/20 17:59 02/15/20 18:19 Assessment/Plan Diagnosis [place]: #Severe hypokalemia #Abdominal distention - bowel obstruction #htn #Dehydration #HLD - IVF - replete K - NPO - monitor lytes - avoid nephrotoxins - GI eval - gen surgeval Yakelin Arnett M.D. Feb 15, 2020 22:08
[2020-02-16] VITALS: BP 102/66
[2020-02-16 00:05] LABS: ANION GAP 12 mmol/L (5-15); BLOOD UREA NITROGEN 19 mg/dL (7-18); CALCIUM 8.4 MG/DL (8.5-10.1); CARBON DIOXIDE 35 MMOL/L (21-32); CHLORIDE 97 MMOL/L (98-107); CREATININE 0.8 MG/DL (0.55-1.30); SODIUM 144 MMOL/L (136-145)
[2020-02-16 00:06] LABS: POTASSIUM 1.7 MMOL/L (3.5-5.1)
--- NOTE | 2020-02-16 00:30 | NUR ---
NURSE NOTES: Called Dr. Arnett and informed him about patient's potassium result which is 1.7. Received an order, will carry out. At this time, patient denies any weakness, muscle cramps nor palpitation at this time. Will continue to monitor.
[2020-02-16 04:00] VITALS: BP 109/61
--- NOTE | 2020-02-16 07:08 | NUR ---
NURSE NOTES: RECEIVED PATIENT AND REPORT FROM CADEN RN IN BED, DENIES ANY PAIN AT THIS TIME, NOTED PATIENT'S ABDOMEN IS STILL DISTENDED AND PATIENT DO NOT RECOLLECT THE LAST TIME SHE HAD A BOWEL MOVEMENT. DENIES ANY ABDOMINAL PAIN. IV IS INTACT AND PATENT. BED IS IN LOWEST POSITION, BEDSIDE RAILS UP X3, BRAKES ENGAGED FOR SAFETY. CALL LIGHT IS WITHIN REACH. PATIENT IS IN STABLE CONDITION AT THIS TIME. WILL CONTINUE WITH THE PLAN OF CARE.
--- NOTE | 2020-02-16 07:08 | NUR ---
NURSE HAND-OFF REPORT: Important Events on Shift: Patient's potassium level yesterday was 1.7, Dr. Arnett ordered 60 Meqs KCL (6 bafs of KCL). Patient Status: Patient is awake on bed, with no complaints made at this time. Still with no symptoms of hypokalemia noted and reported. RN made aware of plan of care. Diet: NPO except meds/ice chips Pending Orders: xray of abdomen Pending Results/Labs: CMP, Lipase, PT, APTT, CBC result Pending MD notification: Latest Vital Signs: Temperature 98.4 , Pulse 92 , B/P 109 /61 , Respiratory Rate 19 , O2 SAT 99 , Room Air, O2 Flow Rate . Vital Sign Comment: stable EKG Rhythm: Sinus Rhythm Rhythm change?: N MD Notified?: N - MD Response: Latest Scherer Fall Score: 20 Fall Risk: Low Risk Safety Measures: Call light Within Reach, Bed Alarm Zone 1, Side Rails Side Rails x2, Bed position Low and Locked. Fall Precautions: Patient Fall Education Report given to RYANN Pedersen.
[2020-02-16 07:20] LABS: BASOPHILS % (AUTO) 0.4 % (0.0-2.0); EOSINOPHILS % (AUTO) 0.1 % (0.0-3.0); HEMATOCRIT 30.6 % (37.0-47.0); HEMOGLOBIN 10.2 G/DL (12.0-16.0); LYMPHOCYTES % (AUTO) 18.9 % (20.0-45.0); MEAN CORPUSCULAR VOLUME 87 FL (80-99); MONOCYTES % (AUTO) 6.8 % (1.0-10.0); NEUTROPHILS % (AUTO) 73.8 % (45.0-75.0); PLATELET COUNT 179 K/UL (150-450); RED BLOOD COUNT 3.49 M/UL (4.20-5.40); RED CELL DISTRIBUTION WIDTH 13.5 % (11.6-14.8); WHITE BLOOD COUNT 5.3 K/UL (4.8-10.8)
[2020-02-16 07:42] LABS: ALANINE AMINOTRANSFERASE 16 U/L (12-78); ALBUMIN 2.7 G/DL (3.4-5.0); ALKALINE PHOSPHATASE 47 U/L (46-116); ANION GAP 13 mmol/L (5-15); ASPARTATE AMINO TRANSFERASE 33 U/L (15-37); BILIRUBIN,TOTAL 0.9 MG/DL (0.2-1.0); BLOOD UREA NITROGEN 19 mg/dL (7-18); CALCIUM 7.5 MG/DL (8.5-10.1); CARBON DIOXIDE 34 MMOL/L (21-32); CHLORIDE 101 MMOL/L (98-107); CREATININE 0.8 MG/DL (0.55-1.30); INR 1.3 (0.9-1.1); SODIUM 148 MMOL/L (136-145)
[2020-02-16 07:46] LABS: POTASSIUM 2.2 MMOL/L (3.5-5.1)
[2020-02-16 08:00] VITALS: BP 104/70
--- NOTE | 2020-02-16 08:15 | NUR ---
RD ASSESSMENT & RECOMMENDATIONS SEE CARE ACTIVITY FOR COMPLETE ASSESSMENT DAILY ESTIMATED NEEDS: Needs based on GI, cardiac 50.4kg 25-30 kcals/kg 6285-2460 total kcals 1-1.2 g protein/kg 50-61 g total protein 25-30 mL/kg 4690-3897 total fluid mLs NUTRITION DIAGNOSIS: Altered GI fxn r/t bowel obstruction as evidenced by CT scan, last bm unknown, adm w/ distended abdomen, N/V w/ recent poor po intake. CURRENT DIET: NPO PO DIET RECOMMENDATIONS: CLD-> Soft diet ADDITIONAL RECOMMENDATIONS: 1) Add Ensure Clear TID w/ diet 2) replete lytes-> K critically low, on Kcl Low Phos. 3) Monitor for bowel movement. 4) Rec D5 while NPO-> BG of 69 this morning
--- NOTE | 2020-02-16 09:34 | NUR ---
RADIOLOGY DEPT., ABDOMEN X-RAY PERFORMED.-P.DYE
--- NOTE | 2020-02-16 11:59 | Diagnostic Imaging Report ---
EXAM: XRAY Abdomen 1v HISTORY: Abdominal pain COMPARISON: CT abdomen pelvis 02/15/2020. TECHNIQUE: Frontal view of the abdomen obtained. FINDINGS: There is redemonstration of severe colonic distention as noted on prior CT it no significant small bowel distention noted. No definite pathologic calcifications identified. There is no sign of free air. No acute abnormality noted of the visualized osseous structures. IMPRESSION: SEVERE COLONIC DISTENTION NOTED SEEN ON PRIOR CT.
[2020-02-16 12:00] VITALS: BP 110/71
[2020-02-16] MEDS: NS w/KCl 20mEq 1000ml 1,000 ML IV SCH (13:19)
--- NOTE | 2020-02-16 13:23 | NUR ---
CASE MANAGEMENT:REVIEW BIBA FROM HOME SI: BOWEL OBSTRUCTION. HYPOKALEMIA. HYPOTENSION HR~120 BP~98/71 K-2.2 GLUCOSE-69 CA-7.5 IS:500CC NS BOLUS IV KCL X2 1L NS BOLUS CT HEAD/ABD/PELVIS : TO TELEMETRY
--- NOTE | 2020-02-16 13:51 | Surgery Progress Note ---
Surgery Progress Note Subjective Additional Comments no acute events no flatus no bm no n/v kub noted discussed with GI. plan for scope tomorrow patient at risk for perforation and understands. will be available for surgery in case emergency Objective Last 24 Hour Vital Signs Date Time Temp Pulse Resp B/P (MAP) Pulse Ox O2 Delivery O2 Flow Rate FiO2 02/16/20 12:00 97.7 90 20 110/71 (84) 96 02/16/20 12:00 90 02/16/20 09:00 Room Air 02/16/20 08:00 97.5 91 18 104/70 (81) 95 02/16/20 08:00 91 02/16/20 04:00 92 02/16/20 04:00 98.4 85 19 109/61 (77) 99 02/16/20 00:00 98.2 88 20 102/66 (78) 97 02/16/20 00:00 87 02/15/20 21:00 Room Air 02/15/20 20:00 111 02/15/20 20:00 97.9 91 19 114/70 (85) 100 02/15/20 17:03 97.7 71 18 143/80 (101) 98 02/15/20 16:59 Room Air 02/15/20 16:49 Room Air 02/15/20 16:11 98.1 87 15 138/89 99 Room Air 02/15/20 16:00 97.7 82 18 140/76 (97) 98 02/15/20 16:00 82 02/15/20 15:41 98.1 85 16 142/90 98 Room Air 02/15/20 13:55 97.9 88 18 140/84 97 Room Air I&O Intake and Output 02/15/20 02/16/20 19:00 07:00 Intake Total 1700 ml Balance 1700 ml Intake IV Total 1700 ml # Voids 1 Dressing: other Wound: other Cardiovascular: RSR Respiratory: decreased breath sounds Abdomen: soft, non-tender, present bowel sounds Extremities: no tenderness, no cyanosis Laboratory Tests Test 02/15/20 23:50 02/16/20 05:26 Sodium Level 144 MMOL/L (136-145) 148 MMOL/L (136-145) H Potassium Level 1.7 MMOL/L (3.5-5.1) *L 2.2 MMOL/L (3.5-5.1) *L Chloride Level 97 MMOL/L (98-107) L 101 MMOL/L (98-107) Carbon Dioxide Level 35 MMOL/L (21-32) H 34 MMOL/L (21-32) H Anion Gap 12 mmol/L (5-15) 13 mmol/L (5-15) Blood Urea Nitrogen 19 mg/dL (7-18) H 19 mg/dL (7-18) H Creatinine 0.8 MG/DL (0.55-1.30) 0.8 MG/DL (0.55-1.30) Estimat Glomerular Filtration Rate > 60 mL/min (>60) > 60 mL/min (>60) Glucose Level 83 MG/DL (74-106) 69 MG/DL (74-106) L Calcium Level 8.4 MG/DL (8.5-10.1) L 7.5 MG/DL (8.5-10.1) L White Blood Count 5.3 K/UL (4.8-10.8) Red Blood Count 3.49 M/UL (4.20-5.40) L Hemoglobin 10.2 G/DL (12.0-16.0) L Hematocrit 30.6 % (37.0-47.0) L Mean Corpuscular Volume 87 FL (80-99) Mean Corpuscular Hemoglobin 29.3 PG (27.0-31.0) Mean Corpuscular Hemoglobin Concent 33.5 G/DL (32.0-36.0) Red Cell Distribution Width 13.5 % (11.6-14.8) Platelet Count 179 K/UL (150-450) Mean Platelet Volume 7.3 FL (6.5-10.1) Neutrophils (%) (Auto) 73.8 % (45.0-75.0) Lymphocytes (%) (Auto) 18.9 % (20.0-45.0) L Monocytes (%) (Auto) 6.8 % (1.0-10.0) Eosinophils (%) (Auto) 0.1 % (0.0-3.0) Basophils (%) (Auto) 0.4 % (0.0-2.0) Erythrocyte Sedimentation Rate 7 MM/HR (0-30) Prothrombin Time 13.9 SEC (9.30-11.50) H Prothromb Time International Ratio 1.3 (0.9-1.1) H Activated Partial Thromboplast Time 24 SEC (23-33) Phosphorus Level 2.0 MG/DL (2.5-4.9) L Total Bilirubin 0.9 MG/DL (0.2-1.0) Aspartate Amino Transf (AST/SGOT) 33 U/L (15-37) Alanine Aminotransferase (ALT/SGPT) 16 U/L (12-78) Alkaline Phosphatase 47 U/L (46-116) C-Reactive Protein, Quantitative 1.0 mg/dL (0.00-0.90) H Pro-B-Type Natriuretic Peptide 1391 pg/mL (0-125) H Total Protein 5.3 G/DL (6.4-8.2) L Albumin 2.7 G/DL (3.4-5.0) L Globulin 2.6 g/dL Albumin/Globulin Ratio 1.0 (1.0-2.7) Amylase Level 51 U/L (25-115) Lipase 169 U/L (73-393) Plan Problems: (1) Lightheaded (2) Hypokalemia (3) Large bowel obstruction Assessment & Plan: 64-year-old female with abdominal distention potential large bowel obstruction. Afebrile, hemodynamic stable, labs noted no leukocytosis no pain no bleeding. No prior abdominal surgeries. Nausea and emesis clear liquid . Decreased appetite. Cannot recall last flatus or BM. CT as below. No direct mass or abnormality identified but there is absolutely identifiable transition at the rectosigmoid area with proximal dilatation. A colonoscopy is warranted but though would be with definitive risk of potential perforation. GI consult pending. Replace electrolytes. N.p.o. IV fluids will await scope for findings. Conceivably may require surgical intervention. Thank you for let me participate in patient's care will follow with recommendations GI consider for scope tomorrow will be available for surgery in case of emergency high risk for perforation or complication and understands. but strongly recommend scope prior to surgery for etiology purposes. There are several circumscribed low-density nonenhancing cysts noted in the liver. The spleen is homogeneous. Gallbladder is without sludge or stone and there is no wall thickening. The pancreas is unremarkable. Adrenals are normal in morphology. The kidneys are normal in size, shape and axis. Small bowel loops are nondistended. The dominant abnormality is severe colonic distention containing air-fluid levels and stool debris. Dilated colon extends down to the rectosigmoid junction where there is an apparent transition. The rectal vault is nondistended with only a small amount of stool. No definite discernible mass is detected there is There is no free fluid or free air. No pathologic adenopathy demonstrated. Bladder is empty. There is no suspicious superficial soft tissue or osseous abnormality. IMPRESSION: SEVERE COLONIC DISTENTION WITH AIR-FLUID LEVELS AND STOOL DEBRIS. THERE IS APPARENT TRANSITION AT THE RECTOSIGMOID JUNCTION WITH A RELATIVELY EMPTY RECTAL VAULT WITH ONLY SMALL AMOUNT OF STOOL. NO DEFINITE DISCERNIBLE MASS AT THE TRANSITION POINT. RECOMMEND GI CONSULTATION AND CONSIDER COLONOSCOPY. Swapnil Brito Feb 16, 2020 13:51
--- NOTE | 2020-02-16 13:56 | General Progress Note ---
Assessment/Plan Problem List: (1) Large bowel obstruction ICD Codes: K56.609 - Unspecified intestinal obstruction, unspecified as to partial versus complete obstruction SNOMED: 136638495 (2) Hypokalemia ICD Codes: E87.6 - Hypokalemia SNOMED: 36167863 (3) Lightheaded ICD Codes: R42 - Dizziness and giddiness SNOMED: 950103035 Status: stable Assessment/Plan: d/w surg plan colonoscopy for tomorrow Subjective ROS Limited/Unobtainable: Yes Allergies: Coded Allergies: No Known Allergies (Unverified , 02/15/20) Objective Last 24 Hour Vital Signs Date Time Temp Pulse Resp B/P (MAP) Pulse Ox O2 Delivery O2 Flow Rate FiO2 02/16/20 12:00 97.7 90 20 110/71 (84) 96 02/16/20 12:00 90 02/16/20 09:00 Room Air 02/16/20 08:00 97.5 91 18 104/70 (81) 95 02/16/20 08:00 91 02/16/20 04:00 92 02/16/20 04:00 98.4 85 19 109/61 (77) 99 02/16/20 00:00 98.2 88 20 102/66 (78) 97 02/16/20 00:00 87 02/15/20 21:00 Room Air 02/15/20 20:00 111 02/15/20 20:00 97.9 91 19 114/70 (85) 100 02/15/20 17:03 97.7 71 18 143/80 (101) 98 02/15/20 16:59 Room Air 02/15/20 16:49 Room Air 02/15/20 16:11 98.1 87 15 138/89 99 Room Air 02/15/20 16:00 97.7 82 18 140/76 (97) 98 02/15/20 16:00 82 02/15/20 15:41 98.1 85 16 142/90 98 Room Air Intake and Output 02/15/20 02/16/20 19:00 07:00 Intake Total 1700 ml Balance 1700 ml Intake IV Total 1700 ml # Voids 1 Laboratory Tests 02/15/20 23:50: Sodium Level 144, Potassium Level 1.7*L, Chloride Level 97L, Carbon Dioxide Level 35H, Anion Gap 12, Blood Urea Nitrogen 19H, Creatinine 0.8, Estimat Glomerular Filtration Rate > 60, Glucose Level 83, Calcium Level 8.4L 02/16/20 05:26: Sodium Level 148H, Potassium Level 2.2*L, Chloride Level 101, Carbon Dioxide Level 34H, Anion Gap 13, Blood Urea Nitrogen 19H, Creatinine 0.8, Estimat Glomerular Filtration Rate > 60, Glucose Level 69L, Calcium Level 7.5L, White Blood Count 5.3, Red Blood Count 3.49L, Hemoglobin 10.2L, Hematocrit 30.6L, Mean Corpuscular Volume 87, Mean Corpuscular Hemoglobin 29.3, Mean Corpuscular Hemoglobin Concent 33.5, Red Cell Distribution Width 13.5, Platelet Count 179, Mean Platelet Volume 7.3, Neutrophils (%) (Auto) 73.8, Lymphocytes (%) (Auto) 18.9L, Monocytes (%) (Auto) 6.8, Eosinophils (%) (Auto) 0.1, Basophils (%) (Auto) 0.4, Erythrocyte Sedimentation Rate 7, Prothrombin Time 13.9H, Prothromb Time International Ratio 1.3H, Activated Partial Thromboplast Time 24, Phosphorus Level 2.0L, Total Bilirubin 0.9, Aspartate Amino Transf (AST/SGOT) 33, Alanine Aminotransferase (ALT/SGPT) 16, Alkaline Phosphatase 47, C-Reactive Protein, Quantitative 1.0H, Pro-B-Type Natriuretic Peptide 1391H, Total Protein 5.3L, Albumin 2.7L, Globulin 2.6, Albumin/Globulin Ratio 1.0, Amylase Level 51, Lipase 169 Height (Feet): 5 Height (Inches): 4.00 Weight (Pounds): 110 General Appearance: alert EENT: normal ENT inspection Neck: supple Cardiovascular: normal rate Respiratory/Chest: decreased breath sounds Abdomen: hypoactive bowel sounds, distended Extremities: non-tender Graeme Hirsch MD Feb 16, 2020 13:56
[2020-02-16] MEDS ORDERED: Fleet's Enema 133ml RECTAL SCH (13:59)
[2020-02-16] MEDS ORDERED: Potassium Phosphate 15mm/250ml 250 ML IVPB ONE (14:00)
--- NOTE | 2020-02-16 14:50 | NUR ---
NURSE NOTES: FLEET ENEMA GIVEN AND PATIENT TOLERATED WELL. WILL CONTINUE TO MONITOR.
[2020-02-16 16:00] VITALS: BP 105/64
--- NOTE | 2020-02-16 16:00 | History and Physical Report ---
DATE OF ADMISSION: 02/15/2020 HISTORY OF PRESENT ILLNESS: This is a 64-year-old female who came to the hospital with lightheadedness, fatigue, and loss of appetite. She was found to be markedly hypokalemic. She was also found to have imaging studies, which were abnormal with concern about large-bowel obstruction. The patient states she is obstipated with no bowel movements or passing gas for the last two days. At this time, she denies any discomfort except for mild distention of the abdomen. PAST MEDICAL HISTORY: Notable for hypertension on hydrochlorothiazide. SOCIAL HISTORY: No history of alcohol or tobacco usage. SURGERIES: None reported. REVIEW OF SYSTEMS: Denies any headaches, hematemesis, melena, hematochezia, night sweats, or weight loss. PHYSICAL EXAMINATION: GENERAL: Reveals a 64-year-old female looking much older than stated age. VITAL SIGNS: Blood pressure is 104/70, heart rate 90, respirations 18, O2 saturation on room air. HEENT: Unremarkable. CHEST: Lungs showed clear breath sounds bilaterally. ABDOMEN: Soft, distended. Bowel sounds are not audible . LABORATORY DATA: Lab testing shows hemoglobin 10.2, otherwise normal CBC. Sodium is 148, potassium 2.2 after correction yesterday, calcium 7.5 . CRP 1.0. Albumin 2.7. Coags are negative. Urinalysis is negative. IMAGING STUDIES: A chest x-ray was obtained, which showed clear lung thomson bilaterally. CT of the abdomen and pelvis was obtained, which showed severe distention of the colon with air-fluid levels and stool debris. IMPRESSION: 1. Large-bowel obstruction, rule out fecal impaction. 2. Severe hypokalemia. 3. Hypertension. 4. Diuretic use. DISCUSSION: Admit to the hospital. We will replace potassium. Consult Surgery. We will consult Cardiology in anticipation of surgery. We will consult GI with respect to need for colonoscopy. Nephrology is following. Potassium has been replaced. We will continue to follow carefully. Horacio Zacarias M.D. DR: Licha JOB#: [id number] CC:
--- NOTE | 2020-02-16 16:03 | Cardiology Progress Note ---
Assessment/Plan Status: stable Assessment/Plan Assessment Palpitations Constipation Abdominal distension PVCs dizziness Plan: monitor telemetry and orthostatics Outpatient Echo/Stress Clear to proceed with colonoscopy Replete electrolytes Subjective Cardiovascular: Reports: no symptoms Respiratory: Reports: no symptoms Gastrointestinal/Abdominal: Reports: no symptoms Genitourinary: Reports: no symptoms Subjective No acute events, plan for colonoscopy No fevers no chest pain, no bleeding. Objective Last 24 Hour Vital Signs Date Time Temp Pulse Resp B/P (MAP) Pulse Ox O2 Delivery O2 Flow Rate FiO2 02/16/20 12:00 97.7 90 20 110/71 (84) 96 02/16/20 12:00 90 02/16/20 09:00 Room Air 02/16/20 08:00 97.5 91 18 104/70 (81) 95 02/16/20 08:00 91 02/16/20 04:00 92 02/16/20 04:00 98.4 85 19 109/61 (77) 99 02/16/20 00:00 98.2 88 20 102/66 (78) 97 02/16/20 00:00 87 02/15/20 21:00 Room Air 02/15/20 20:00 111 02/15/20 20:00 97.9 91 19 114/70 (85) 100 02/15/20 17:03 97.7 71 18 143/80 (101) 98 02/15/20 16:59 Room Air 02/15/20 16:49 Room Air 02/15/20 16:11 98.1 87 15 138/89 99 Room Air General Appearance: no apparent distress, alert EENT: PERRL/EOMI, normal ENT inspection, TMs normal Neck: non-tender, normal alignment, normal inspection Rhythm: NSR Cardiovascular: normal peripheral pulses, normal rate Respiratory/Chest: chest wall non-tender, lungs clear Abdomen: normal bowel sounds, non tender, distended Extremities: normal range of motion, non-tender Neurologic: dag sprayer II-XII grossly normal, no motor/sensory deficits Intake and Output 02/15/20 02/16/20 19:00 07:00 Intake Total 1700 ml Balance 1700 ml Intake IV Total 1700 ml # Voids 1 Laboratory Tests Test 02/15/20 23:50 02/16/20 05:26 Sodium Level 144 MMOL/L (136-145) 148 MMOL/L (136-145) H Potassium Level 1.7 MMOL/L (3.5-5.1) *L 2.2 MMOL/L (3.5-5.1) *L Chloride Level 97 MMOL/L (98-107) L 101 MMOL/L (98-107) Carbon Dioxide Level 35 MMOL/L (21-32) H 34 MMOL/L (21-32) H Anion Gap 12 mmol/L (5-15) 13 mmol/L (5-15) Blood Urea Nitrogen 19 mg/dL (7-18) H 19 mg/dL (7-18) H Creatinine 0.8 MG/DL (0.55-1.30) 0.8 MG/DL (0.55-1.30) Estimat Glomerular Filtration Rate > 60 mL/min (>60) > 60 mL/min (>60) Glucose Level 83 MG/DL (74-106) 69 MG/DL (74-106) L Calcium Level 8.4 MG/DL (8.5-10.1) L 7.5 MG/DL (8.5-10.1) L White Blood Count 5.3 K/UL (4.8-10.8) Red Blood Count 3.49 M/UL (4.20-5.40) L Hemoglobin 10.2 G/DL (12.0-16.0) L Hematocrit 30.6 % (37.0-47.0) L Mean Corpuscular Volume 87 FL (80-99) Mean Corpuscular Hemoglobin 29.3 PG (27.0-31.0) Mean Corpuscular Hemoglobin Concent 33.5 G/DL (32.0-36.0) Red Cell Distribution Width 13.5 % (11.6-14.8) Platelet Count 179 K/UL (150-450) Mean Platelet Volume 7.3 FL (6.5-10.1) Neutrophils (%) (Auto) 73.8 % (45.0-75.0) Lymphocytes (%) (Auto) 18.9 % (20.0-45.0) L Monocytes (%) (Auto) 6.8 % (1.0-10.0) Eosinophils (%) (Auto) 0.1 % (0.0-3.0) Basophils (%) (Auto) 0.4 % (0.0-2.0) Erythrocyte Sedimentation Rate 7 MM/HR (0-30) Prothrombin Time 13.9 SEC (9.30-11.50) H Prothromb Time International Ratio 1.3 (0.9-1.1) H Activated Partial Thromboplast Time 24 SEC (23-33) Phosphorus Level 2.0 MG/DL (2.5-4.9) L Total Bilirubin 0.9 MG/DL (0.2-1.0) Aspartate Amino Transf (AST/SGOT) 33 U/L (15-37) Alanine Aminotransferase (ALT/SGPT) 16 U/L (12-78) Alkaline Phosphatase 47 U/L (46-116) C-Reactive Protein, Quantitative 1.0 mg/dL (0.00-0.90) H Pro-B-Type Natriuretic Peptide 1391 pg/mL (0-125) H Total Protein 5.3 G/DL (6.4-8.2) L Albumin 2.7 G/DL (3.4-5.0) L Globulin 2.6 g/dL Albumin/Globulin Ratio 1.0 (1.0-2.7) Amylase Level 51 U/L (25-115) Lipase 169 U/L (73-393) Microbiology Date/Time Source Procedure Growth Status 02/15/20 11:00 Nasopharynx SARS-CoV-2 RdRp Gene Assay - Final Complete FilsoRoby clemens MD Feb 16, 2020 16:03
--- NOTE | 2020-02-16 16:32 | Cardiology Report ---
APPROVED REPORT EKG Measurement Heart [id number] <Conclusion> Sinus tachycardia ST & T wave abnormality, consider inferior ischemia ST & T wave abnormality, consider anterolateral ischemia Abnormal ECG
--- NOTE | 2020-02-16 17:41 | NUR ---
NURSE HAND-OFF REPORT: Important Events on Shift:FLEET ENEMA GIVEN, GI PRE-PROCEDURE CHECKLIST DONE. CONSENT SIGNED. Patient Status: STABLE Diet: NPO Pending Orders: Y Pending Results/Labs: N Pending MD notification:Y Latest Vital Signs: Temperature 97.7 , Pulse 99 , B/P 105 /64 , Respiratory Rate 19 , O2 SAT 96 , Room Air, O2 Flow Rate . Vital Sign Comment: EKG Rhythm: Sinus Rhythm Rhythm change?: N MD Notified?: N - MD Response: Latest Scherer Fall Score: 20 Fall Risk: Low Risk Safety Measures: Call light Within Reach, Bed Alarm Zone 1, Side Rails Side Rails x2, Bed position Low and Locked. Fall Precautions: Patient Fall Education Report given to .
--- NOTE | 2020-02-16 19:01 | NUR ---
NURSE NOTES: HAND OFF REPORT GIVEN TO CADEN GARZON
--- NOTE | 2020-02-16 19:30 | NUR ---
NURSE NOTES: Received report from RYANN Pedersen. Patient is awake, alert and oriented x 4. On npo except ice chips/meds, instructed and amenable. nuclear monitoring technician is in place, shows sinus rhythm, IV site is on left AC G-20, running fluid of NS + 20 meqs KCL @ 50 cc/hour that is patent and intact. Patient is on bedrest. On room air, sating 98% with no shortness of breath reported. Safety measures are in place, bed in lowest and locked position, side rails up x 2, call light button and bedside table within reach, instructed to call for any assistance needed. Will continue plan of care.
[2020-02-16 20:00] VITALS: BP 119/79
--- NOTE | 2020-02-16 21:19 | Nephrology Progress Note ---
Assessment/Plan Plan #Severe hypokalemia #Abdominal distention - bowel obstruction #htn #Dehydration #HLD - IVF - replete K - NPO - monitor lytes - avoid nephrotoxins - GI eval - gen surg eval Subjective ROS Limited/Unobtainable: No Constitutional: Reports: weakness HEENT: Denies: no symptoms, eye pain, blurred vision, tearing, double vision, ear pain, ear discharge, nose pain, nose congestion, throat pain, throat swelling, mouth pain, mouth swelling, other Genitourinary: Denies: no symptoms, burning, discharge, frequency, flank pain, hematuria, incontinence, pain, urgency, other Neurologic/Psychiatric: Denies: no symptoms, anxiety, depressed, emotional problems, headache, numbness, paresthesia, pre-existing deficit, seizure, tin gling, tremors, weakness, other Subjective K remains low getting Iv repletion remains NPO Objective Objective Last 24 Hour Vital Signs Date Time Temp Pulse Resp B/P (MAP) Pulse Ox O2 Delivery O2 Flow Rate FiO2 02/16/20 16:00 97.7 99 19 105/64 (78) 96 02/16/20 16:00 99 02/16/20 12:00 97.7 90 20 110/71 (84) 96 02/16/20 12:00 90 02/16/20 09:00 Room Air 02/16/20 08:00 97.5 91 18 104/70 (81) 95 02/16/20 08:00 91 02/16/20 04:00 92 02/16/20 04:00 98.4 85 19 109/61 (77) 99 02/16/20 00:00 98.2 88 20 102/66 (78) 97 02/16/20 00:00 87 Intake and Output 02/15/20 02/16/20 19:00 07:00 Intake Total 1700 ml Balance 1700 ml Intake IV Total 1700 ml # Voids 1 Laboratory Tests 02/15/20 23:50: Sodium Level 144, Potassium Level 1.7*L, Chloride Level 97L, Carbon Dioxide Level 35H, Anion Gap 12, Blood Urea Nitrogen 19H, Creatinine 0.8, Estimat Glomerular Filtration Rate > 60, Glucose Level 83, Calcium Level 8.4L 02/16/20 05:26: Sodium Level 148H, Potassium Level 2.2*L, Chloride Level 101, Carbon Dioxide Level 34H, Anion Gap 13, Blood Urea Nitrogen 19H, Creatinine 0.8, Estimat Glomerular Filtration Rate > 60, Glucose Level 69L, Calcium Level 7.5L, White Blood Count 5.3, Red Blood Count 3.49L, Hemoglobin 10.2L, Hematocrit 30.6L, Mean Corpuscular Volume 87, Mean Corpuscular Hemoglobin 29.3, Mean Corpuscular Hemoglobin Concent 33.5, Red Cell Distribution Width 13.5, Platelet Count 179, Mean Platelet Volume 7.3, Neutrophils (%) (Auto) 73.8, Lymphocytes (%) (Auto) 18.9L, Monocytes (%) (Auto) 6.8, Eosinophils (%) (Auto) 0.1, Basophils (%) (Auto) 0.4, Erythrocyte Sedimentation Rate 7, Prothrombin Time 13.9H, Prothromb Time International Ratio 1.3H, Activated Partial Thromboplast Time 24, Phosphorus Level 2.0L, Total Bilirubin 0.9, Aspartate Amino Transf (AST/SGOT) 33, Alanine Aminotransferase (ALT/SGPT) 16, Alkaline Phosphatase 47, C-Reactive Protein, Quantitative 1.0H, Pro-B-Type Natriuretic Peptide 1391H, Total Protein 5.3L, Albumin 2.7L, Globulin 2.6, Albumin/Globulin Ratio 1.0, Amylase Level 51, Lipase 169 Height (Feet): 5 Height (Inches): 5.00 Weight (Pounds): 101 General Appearance: no apparent distress EENT: PERRL/EOMI, normal ENT inspection Neck: non-tender, normal alignment Cardiovascular: normal peripheral pulses, normal rate Respiratory/Chest: chest wall non-tender, lungs clear, no accessory muscle use Abdomen: normal bowel sounds, non tender Extremities: non-tender Neurologic: alert, oriented x 3 Yakelin Arnett M.D. Feb 16, 2020 21:19
[2020-02-16 21:58] LABS: ANION GAP 14 mmol/L (5-15); BLOOD UREA NITROGEN 17 mg/dL (7-18); CALCIUM 7.1 MG/DL (8.5-10.1); CARBON DIOXIDE 30 MMOL/L (21-32); CHLORIDE 102 MMOL/L (98-107); CREATININE 0.7 MG/DL (0.55-1.30); SODIUM 146 MMOL/L (136-145)
[2020-02-16 22:01] LABS: POTASSIUM 2.3 MMOL/L (3.5-5.1)
[2020-02-17] VITALS: BP 115/71
[2020-02-17 04:00] VITALS: BP 129/82
--- NOTE | 2020-02-17 07:12 | NUR ---
NURSE HAND-OFF REPORT: Important Events on Shift: Patient's serum potassium level yesterday was 2.3, Dr. Arnett ordered 60 meqs of potassium (6 bags). Patient Status: Patient is awake, alert and oriented x 4. Patient is in stable condition at this time, without complaints made at this time. RN made aware of patient's procedure today, which is the colonoscopy with possible biopsy, polypectomy, hemostasis and submucosal injection. Plan of care endorsed. Diet: NPO except meds/ice chips Pending Orders: Colonoscopy this morning Pending Results/Labs:Phos, Magnesium, CBC and BMP Pending MD notification: None Latest Vital Signs: Temperature 97.9 , Pulse 99 , B/P 129 /82 , Respiratory Rate 18 , O2 SAT 99 , Room Air, O2 Flow Rate . Vital Sign Comment: Stable EKG Rhythm: Sinus Rhythm Rhythm change?: N MD Notified?: N - MD Response: Latest Scherer Fall Score: 20 Fall Risk: Low Risk Safety Measures: Call light Within Reach, Bed Alarm Zone 1, Side Rails Side Rails x2, Bed position Low and Locked. Fall Precautions: Patient Fall Education Report given to RYANN Benito.
--- NOTE | 2020-02-17 07:35 | NUR ---
NURSE NOTES: Pt received from Libby Arechiga. Pt in bed awake and resting. No complaint of pain at this time. White board updated. Bed low and locked. Call light within reach. Pt will have procedure later today, consent in folder.
[2020-02-17 07:40] LABS: BASOPHILS % (AUTO) 0.7 % (0.0-2.0); EOSINOPHILS % (AUTO) 0.1 % (0.0-3.0); HEMATOCRIT 33.3 % (37.0-47.0); HEMOGLOBIN 10.8 G/DL (12.0-16.0); LYMPHOCYTES % (AUTO) 20.6 % (20.0-45.0); MEAN CORPUSCULAR VOLUME 88 FL (80-99); MONOCYTES % (AUTO) 6.4 % (1.0-10.0); NEUTROPHILS % (AUTO) 72.1 % (45.0-75.0); PLATELET COUNT 189 K/UL (150-450); RED BLOOD COUNT 3.78 M/UL (4.20-5.40); RED CELL DISTRIBUTION WIDTH 13.9 % (11.6-14.8); WHITE BLOOD COUNT 6.7 K/UL (4.8-10.8)
[2020-02-17 07:46] LABS: ANION GAP 15 mmol/L (5-15); BLOOD UREA NITROGEN 18 mg/dL (7-18); CALCIUM 7.4 MG/DL (8.5-10.1); CARBON DIOXIDE 28 MMOL/L (21-32); CHLORIDE 102 MMOL/L (98-107); CREATININE 0.8 MG/DL (0.55-1.30); POTASSIUM 3.1 MMOL/L (3.5-5.1); SODIUM 145 MMOL/L (136-145)
[2020-02-17 08:00] VITALS: BP 141/92
--- NOTE | 2020-02-17 09:51 | Pulmonology Progress Note ---
Subjective ROS Limited/Unobtainable: No Interval Events: None new Constitutional: Reports: no symptoms HEENT: Repors: no symptoms Respiratory: Reports: no symptoms Cardiovascular: Reports: no symptoms Gastrointestinal/Abdominal: Reports: constipation Genitourinary: Reports: no symptoms Allergies: Coded Allergies: No Known Allergies (Unverified , 02/15/20) Objective Last 24 Hour Vital Signs Date Time Temp Pulse Resp B/P (MAP) Pulse Ox O2 Delivery O2 Flow Rate FiO2 02/17/20 09:00 Room Air 02/17/20 08:00 97.9 95 21 141/92 (108) 97 02/17/20 08:00 93 02/17/20 04:00 87 02/17/20 04:00 97.9 99 18 129/82 (98) 99 02/17/20 00:00 97.5 87 19 115/71 (86) 97 02/17/20 00:00 89 02/16/20 21:00 Room Air 02/16/20 20:00 93 02/16/20 20:00 97.9 88 18 119/79 (92) 99 02/16/20 16:00 97.7 99 19 105/64 (78) 96 02/16/20 16:00 99 02/16/20 12:00 97.7 90 20 110/71 (84) 96 02/16/20 12:00 90 Intake and Output 02/16/20 02/17/20 19:00 07:00 Intake Total 50 ml 400 ml Balance 50 ml 400 ml Intake IV Total 50 ml 400 ml General Appearance: no acute distress HEENT: normocephalic Respiratory: chest wall non-tender, lungs clear Cardiovascular: normal peripheral pulses Abdomen: distended Microbiology Date/Time Source Procedure Growth Status 02/15/20 11:00 Nasopharynx SARS-CoV-2 RdRp Gene Assay - Final Complete Laboratory Tests 02/16/20 21:45: Sodium Level 146H, Potassium Level 2.3*L, Chloride Level 102, Carbon Dioxide Level 30, Anion Gap 14, Blood Urea Nitrogen 17, Creatinine 0.7, Estimat Glomerular Filtration Rate > 60, Glucose Level 67L, Calcium Level 7.1L 02/17/20 06:05: Sodium Level 145, Potassium Level 3.1L, Chloride Level 102, Carbon Dioxide Level 28, Anion Gap 15, Blood Urea Nitrogen 18, Creatinine 0.8, Estimat Glomerular Filtration Rate > 60, Glucose Level 65L, Calcium Level 7.4L, White Blood Count 6.7, Red Blood Count 3.78L, Hemoglobin 10.8L, Hematocrit 33.3L, Mean Corpuscular Volume 88, Mean Corpuscular Hemoglobin 28.7, Mean Corpuscular Hemoglobin Concent 32.6, Red Cell Distribution Width 13.9, Platelet Count 189, Mean Platelet Volume 7.3, Neutrophils (%) (Auto) 72.1, Lymphocytes (%) (Auto) 20.6, Monocytes (%) (Auto) 6.4, Eosinophils (%) (Auto) 0.1, Basophils (%) (Auto) 0.7, Phosphorus Level 2.4L, Magnesium Level 1.6L Current Medications Medications (Trade) Dose Ordered Sig/Fozia Route PRN Reason Start Time Stop Time Status Last Admin Dose Admin Hydromorphone HCl (Dilaudid) 0.5 mg Q4H PRN IVP For Pain 02/15/20 16:15 02/22/20 16:14 Iohexol (OMNIPAQUE-300 100ml) 100 ml NOW PRN INJ Radiology Procedure 02/15/20 10:15 02/17/20 10:03 Ondansetron HCl (Zofran) 4 mg Q6H PRN IVP Nausea & Vomiting 02/15/20 16:15 03/16/20 16:14 Potassium Chloride/Sodium Chloride 1,000 ml @ 50 mls/hr Q20H IV 02/15/20 18:00 03/16/20 17:59 02/16/20 13:19 Assessment/Plan Assessment/Plan IMPRESSION: 1. Large-bowel obstruction, rule out fecal impaction. 2. Severe hypokalemia. 3. Hypertension. 4. Diuretic use. DISCUSSION: Replace potassium. Seen by Surgery. I will continue to follow carefully. Colonoscopy today May require surgery Horacio Zacarias M.D. Horacio Zacarias MD Feb 17, 2020 09:51
--- NOTE | 2020-02-17 09:54 | Surgery Progress Note ---
Surgery Progress Note Subjective Additional Comments no acute events labs stable pending scope today discussed with GI Objective Last 24 Hour Vital Signs Date Time Temp Pulse Resp B/P (MAP) Pulse Ox O2 Delivery O2 Flow Rate FiO2 02/17/20 09:00 Room Air 02/17/20 08:00 97.9 95 21 141/92 (108) 97 02/17/20 08:00 93 02/17/20 04:00 87 02/17/20 04:00 97.9 99 18 129/82 (98) 99 02/17/20 00:00 97.5 87 19 115/71 (86) 97 02/17/20 00:00 89 02/16/20 21:00 Room Air 02/16/20 20:00 93 02/16/20 20:00 97.9 88 18 119/79 (92) 99 02/16/20 16:00 97.7 99 19 105/64 (78) 96 02/16/20 16:00 99 02/16/20 12:00 97.7 90 20 110/71 (84) 96 02/16/20 12:00 90 I&O Intake and Output 02/16/20 02/17/20 19:00 07:00 Intake Total 50 ml 400 ml Balance 50 ml 400 ml Intake IV Total 50 ml 400 ml Cardiovascular: RSR Respiratory: clear Abdomen: soft, distended, non-tender, decreased bowel sounds Extremities: no edema, no tenderness, no cyanosis Laboratory Tests Test 02/16/20 21:45 02/17/20 06:05 Sodium Level 146 MMOL/L (136-145) H 145 MMOL/L (136-145) Potassium Level 2.3 MMOL/L (3.5-5.1) *L 3.1 MMOL/L (3.5-5.1) L Chloride Level 102 MMOL/L (98-107) 102 MMOL/L (98-107) Carbon Dioxide Level 30 MMOL/L (21-32) 28 MMOL/L (21-32) Anion Gap 14 mmol/L (5-15) 15 mmol/L (5-15) Blood Urea Nitrogen 17 mg/dL (7-18) 18 mg/dL (7-18) Creatinine 0.7 MG/DL (0.55-1.30) 0.8 MG/DL (0.55-1.30) Estimat Glomerular Filtration Rate > 60 mL/min (>60) > 60 mL/min (>60) Glucose Level 67 MG/DL (74-106) L 65 MG/DL (74-106) L Calcium Level 7.1 MG/DL (8.5-10.1) L 7.4 MG/DL (8.5-10.1) L White Blood Count 6.7 K/UL (4.8-10.8) Red Blood Count 3.78 M/UL (4.20-5.40) L Hemoglobin 10.8 G/DL (12.0-16.0) L Hematocrit 33.3 % (37.0-47.0) L Mean Corpuscular Volume 88 FL (80-99) Mean Corpuscular Hemoglobin 28.7 PG (27.0-31.0) Mean Corpuscular Hemoglobin Concent 32.6 G/DL (32.0-36.0) Red Cell Distribution Width 13.9 % (11.6-14.8) Platelet Count 189 K/UL (150-450) Mean Platelet Volume 7.3 FL (6.5-10.1) Neutrophils (%) (Auto) 72.1 % (45.0-75.0) Lymphocytes (%) (Auto) 20.6 % (20.0-45.0) Monocytes (%) (Auto) 6.4 % (1.0-10.0) Eosinophils (%) (Auto) 0.1 % (0.0-3.0) Basophils (%) (Auto) 0.7 % (0.0-2.0) Phosphorus Level 2.4 MG/DL (2.5-4.9) L Magnesium Level 1.6 MG/DL (1.8-2.4) L Plan Problems: (1) Lightheaded (2) Hypokalemia (3) Large bowel obstruction Assessment & Plan: 64-year-old female with abdominal distention potential large bowel obstruction. Afebrile, hemodynamic stable, labs noted no leukocytosis no pain no bleeding. No prior abdominal surgeries. Nausea and emesis clear liquid. Decreased appetite. Cannot recall last flatus or BM. CT as below. No direct mass or abnormality identified but there is absolutely identifiable transition at the rectosigmoid area with proximal dilatation. A colonoscopy is warranted but though would be with definitive risk of potential perforation. GI consult pending. Replace electrolytes. N.p.o. IV fluids will await scope for findings. Conceivably may require surgical intervention. Thank you for let me participate in patient's care will follow with recommendations GI consider for scope tomorrow will be available for surgery in case of emergency high risk for perforation or complication and understands. but strongly recommend scope prior to surgery for etiology purposes. There are several circumscribed low-density nonenhancing cysts noted in the liver. The spleen is homogeneous. Gallbladder is without sludge or stone and there is no wall thickening. The pancreas is unremarkable. Adrenals are normal in morphology. The kidneys are normal in size, shape and axis. Small bowel loops are nondistended. The dominant abnormality is severe colonic distention containing air-fluid levels and stool debris. Dilated colon extends down to the rectosigmoid junction where there is an apparent transition. The rectal vault is nondistended with only a small amount of stool. No definite discernible mass is detected there is There is no free fluid or free air. No pathologic adenopathy demonstrated. Bladder is empty. There is no suspicious superficial soft tissue or osseous abnormality. IMPRESSION: SEVERE COLONIC DISTENTION WITH AIR-FLUID LEVELS AND STOOL DEBRIS. THERE IS APPA RENT TRANSITION AT THE RECTOSIGMOID JUNCTION WITH A RELATIVELY EMPTY RECTAL VAULT WITH ONLY SMALL AMOUNT OF STOOL. NO DEFINITE DISCERNIBLE MASS AT THE TRANSITION POINT. RECOMMEND GI CONSULTATION AND CONSIDER COLONOSCOPY. Swapnil Brito Feb 17, 2020 09:54
[2020-02-17] MEDS: NS w/KCl 20mEq 1000ml 1,000 ML IV SCH (10:53)
[2020-02-17 12:00] VITALS: BP 138/76
--- NOTE | 2020-02-17 13:20 | NUR ---
CASE MANAGEMENT:REVIEW 02/17/20 SI: BOWEL OBSTRUCTION 98.2 83 20 141/92 99% ON RA H/H-10.8/33.2 K-3.1 MAG-1.6 IS: IVF+KCL@50/HR COLONOSCOPY FOR TODAY : TELEMETRY STATUS Addendum: 02/17/20 at 1329 by LONNIE HENLEY LVN LVN CLINICALS FAXED TO: [facility] T: [phone] opt 1 F: [phone] REF #[id number]
--- NOTE | 2020-02-17 13:28 | Cardiology Progress Note ---
Assessment/Plan Status: stable Assessment/Plan Assessment Palpitations Constipation Abdominal distension PVCs dizziness Plan: monitor telemetry and orthostatics Outpatient Echo/Stress Clear to proceed with colonoscopy Replete electrolytes Subjective Cardiovascular: Reports: no symptoms Respiratory: Reports: no symptoms Gastrointestinal/Abdominal: Reports: no symptoms Genitourinary: Reports: no symptoms Subjective No acute events, plan for colonoscopy No fevers no chest pain, no bleeding. Objective Last 24 Hour Vital Signs Date Time Temp Pulse Resp B/P (MAP) Pulse Ox O2 Delivery O2 Flow Rate FiO2 02/17/20 12:00 98.2 83 20 138/76 (96) 99 83 02/17/20 09:00 Room Air 02/17/20 08:00 97.9 95 21 141/92 (108) 97 02/17/20 08:00 93 02/17/20 04:00 87 02/17/20 04:00 97.9 99 18 129/82 (98) 99 02/17/20 00:00 97.5 87 19 115/71 (86) 97 02/17/20 00:00 89 02/16/20 21:00 Room Air 02/16/20 20:00 93 02/16/20 20:00 97.9 88 18 119/79 (92) 99 02/16/20 16:00 97.7 99 19 105/64 (78) 96 02/16/20 16:00 99 General Appearance: no apparent distress, alert EENT: PERRL/EOMI, normal ENT inspection Neck: normal alignment, normal inspection Rhythm: NSR Cardiovascular: normal peripheral pulses, normal rate Respiratory/Chest: chest wall non-tender, lungs clear, normal breath sounds Abdomen: normal bowel sounds, non tender, soft, no organomegaly Extremities: normal range of motion, non-tender Neurologic: seismic observer II-XII grossly normal, no motor/sensory deficits Intake and Output 02/16/20 02/17/20 19:00 07:00 Intake Total 50 ml 400 ml Balance 50 ml 400 ml Intake IV Total 50 ml 400 ml Laboratory Tests Test 02/16/20 21:45 02/17/20 06:05 Sodium Level 146 MMOL/L (136-145) H 145 MMOL/L (136-145) Potassium Level 2.3 MMOL/L (3.5-5.1) *L 3.1 MMOL/L (3.5-5.1) L Chloride Level 102 MMOL/L (98-107) 102 MMOL/L (98-107) Carbon Dioxide Level 30 MMOL/L (21-32) 28 MMOL/L (21-32) Anion Gap 14 mmol/L (5-15) 15 mmol/L (5-15) Blood Urea Nitrogen 17 mg/dL (7-18) 18 mg/dL (7-18) Creatinine 0.7 MG/DL (0.55-1.30) 0.8 MG/DL (0.55-1.30) Estimat Glomerular Filtration Rate > 60 mL/min (>60) > 60 mL/min (>60) Glucose Level 67 MG/DL (74-106) L 65 MG/DL (74-106) L Calcium Level 7.1 MG/DL (8.5-10.1) L 7.4 MG/DL (8.5-10.1) L White Blood Count 6.7 K/UL (4.8-10.8) Red Blood Count 3.78 M/UL (4.20-5.40) L Hemoglobin 10.8 G/DL (12.0-16.0) L Hematocrit 33.3 % (37.0-47.0) L Mean Corpuscular Volume 88 FL (80-99) Mean Corpuscular Hemoglobin 28.7 PG (27.0-31.0) Mean Corpuscular Hemoglobin Concent 32.6 G/DL (32.0-36.0) Red Cell Distribution Width 13.9 % (11.6-14.8) Platelet Count 189 K/UL (150-450) Mean Platelet Volume 7.3 FL (6.5-10.1) Neutrophils (%) (Auto) 72.1 % (45.0-75.0) Lymphocytes (%) (Auto) 20.6 % (20.0-45.0) Monocytes (%) (Auto) 6.4 % (1.0-10.0) Eosinophils (%) (Auto) 0.1 % (0.0-3.0) Basophils (%) (Auto) 0.7 % (0.0-2.0) Phosphorus Level 2.4 MG/DL (2.5-4.9) L Magnesium Level 1.6 MG/DL (1.8-2.4) L Microbiology Date/Time Source Procedure Growth Status 02/15/20 11:00 Nasopharynx SARS-CoV-2 RdRp Gene Assay - Final Complete Roby Reyes MD Feb 17, 2020 13:28
--- NOTE | 2020-02-17 13:41 | General Progress Note ---
Subjective ROS Limited/Unobtainable: Yes Allergies: Coded Allergies: No Known Allergies (Unverified , 02/15/20) Objective Last 24 Hour Vital Signs Date Time Temp Pulse Resp B/P (MAP) Pulse Ox O2 Delivery O2 Flow Rate FiO2 02/17/20 12:00 98.2 83 20 138/76 (96) 99 83 02/17/20 09:00 Room Air 02/17/20 08:00 97.9 95 21 141/92 (108) 97 02/17/20 08:00 93 02/17/20 04:00 87 02/17/20 04:00 97.9 99 18 129/82 (98) 99 02/17/20 00:00 97.5 87 19 115/71 (86) 97 02/17/20 00:00 89 02/16/20 21:00 Room Air 02/16/20 20:00 93 02/16/20 20:00 97.9 88 18 119/79 (92) 99 02/16/20 16:00 97.7 99 19 105/64 (78) 96 02/16/20 16:00 99 Intake and Output 02/16/20 02/17/20 19:00 07:00 Intake Total 50 ml 400 ml Balance 50 ml 400 ml Intake IV Total 50 ml 400 ml Laboratory Tests 02/16/20 21:45: Sodium Level 146H, Potassium Level 2.3*L, Chloride Level 102, Carbon Dioxide Level 30, Anion Gap 14, Blood Urea Nitrogen 17, Creatinine 0.7, Estimat Glomerular Filtration Rate > 60, Glucose Level 67L, Calcium Level 7.1L 02/17/20 06:05: Sodium Level 145, Potassium Level 3.1L, Chloride Level 102, Carbon Dioxide Level 28, Anion Gap 15, Blood Urea Nitrogen 18, Creatinine 0.8, Estimat Glomerular Filtration Rate > 60, Glucose Level 65L, Calcium Level 7.4L, White Blood Count 6.7, Red Blood Count 3.78L, Hemoglobin 10.8L, Hematocrit 33.3L, Mean Corpuscular Volume 88, Mean Corpuscular Hemoglobin 28.7, Mean Corpuscular Hemoglobin Concent 32.6, Red Cell Distribution Width 13.9, Platelet Count 189, Mean Platelet Volume 7.3, Neutrophils (%) (Auto) 72.1, Lymphocytes (%) (Auto) 20.6, Monocytes (%) (Auto) 6.4, Eosinophils (%) (Auto) 0.1, Basophils (%) (Auto) 0.7, Phosphorus Level 2.4L, Magnesium Level 1.6L Height (Feet): 5 Height (Inches): 5.00 Weight (Pounds): 101 General Appearance: no apparent distress EENT: normal ENT inspection Neck: supple Cardiovascular: normal rate Respiratory/Chest: decreased breath sounds Abdomen: hypoactive bowel sounds, distended Extremities: non-tender Assessment/Plan Problem List: (1) Large bowel obstruction ICD Codes: K56.609 - Unspecified intestinal obstruction, unspecified as to partial versus complete obstruction SNOMED: 632712204 (2) Hypokalemia ICD Codes: E87.6 - Hypokalemia SNOMED: 35436905 (3) Lightheaded ICD Codes: R42 - Dizziness and giddiness SNOMED: 345369617 Status: stable Assessment/Plan: d/w surg plans for colonoscopy was canceled since no time available in the GI lab plan colonoscopy for tomorrow Graeme Hirsch MD Feb 17, 2020 13:41
--- NOTE | 2020-02-17 14:12 | Nephrology Progress Note ---
Assessment/Plan Plan #Severe hypokalemia #Abdominal distention - bowel obstruction #htn #Dehydration #HLD - IVF - replete K, mag and phos - NPO - monitor lytes - avoid nephrotoxins - GI eval - plan for colonoscopy - gen surg eval Subjective ROS Limited/Unobtainable: No Constitutional: Reports: weakness HEENT: Denies: no symptoms, eye pain, blurred vision, tearing, double vision, ear pain, ear discharge, nose pain, nose congestion, throat pain, throat swelling, mouth pain, mouth swelling, other Genitourinary: Denies: no symptoms, burning, discharge, frequency, flank pain, hematuria, incontinence, pain, urgency, other Neurologic/Psychiatric: Denies: no symptoms, anxiety, depressed, emotional problems, headache, numbness, paresthesia, pre-existing deficit, seizure, tingling, tremors, weakness, other Subjective K remains low getting Iv repletion mag and phos low remains NPO plan for colonoscopy today Objective Objective Last 24 Hour Vital Signs Date Time Temp Pulse Resp B/P (MAP) Pulse Ox O2 Delivery O2 Flow Rate FiO2 02/17/20 12:00 94 02/17/20 12:00 98.2 83 20 138/76 (96) 99 83 02/17/20 09:00 Room Air 02/17/20 08:00 97.9 95 21 141/92 (108) 97 02/17/20 08:00 93 02/17/20 04:00 87 02/17/20 04:00 97.9 99 18 129/82 (98) 99 02/17/20 00:00 97.5 87 19 115/71 (86) 97 02/17/20 00:00 89 02/16/20 21:00 Room Air 02/16/20 20:00 93 02/16/20 20:00 97.9 88 18 119/79 (92) 99 02/16/20 16:00 97.7 99 19 105/64 (78) 96 02/16/20 16:00 99 Intake and Output 02/16/20 02/17/20 19:00 07:00 Intake Total 50 ml 400 ml Balance 50 ml 400 ml Intake IV Total 50 ml 400 ml Laboratory Tests 02/16/20 21:45: Sodium Level 146H, Potassium Level 2.3*L, Chloride Level 102, Carbon Dioxide Level 30, Anion Gap 14, Blood Urea Nitrogen 17, Creatinine 0.7, Estimat Chen merular Filtration Rate > 60, Glucose Level 67L, Calcium Level 7.1L 02/17/20 06:05: Sodium Level 145, Potassium Level 3.1L, Chloride Level 102, Carbon Dioxide Level 28, Anion Gap 15, Blood Urea Nitrogen 18, Creatinine 0.8, Estimat Glomerular Filtration Rate > 60, Glucose Level 65L, Calcium Level 7.4L, White Blood Count 6.7, Red Blood Count 3.78L, Hemoglobin 10.8L, Hematocrit 33.3L, Mean Corpuscular Volume 88, Mean Corpuscular Hemoglobin 28.7, Mean Corpuscular Hemoglobin Concent 32.6, Red Cell Distribution Width 13.9, Platelet Count 189, Mean Platelet Volume 7.3, Neutrophils (%) (Auto) 72.1, Lymphocytes (%) (Auto) 20.6, Monocytes (%) (Auto) 6.4, Eosinophils (%) (Auto) 0.1, Basophils (%) (Auto) 0.7, Phosphorus Level 2.4L, Magnesium Level 1.6L Height (Feet): 5 Height (Inches): 5.00 Weight (Pounds): 101 General Appearance: no apparent distress, alert EENT: PERRL/EOMI Neck: non-tender, normal alignment, supple Cardiovascular: normal peripheral pulses, normal rate, regular rhythm Respiratory/Chest: chest wall non-tender, lungs clear, normal breath sounds Abdomen: normal bowel sounds, non tender, soft Extremities: normal range of motion, non-tender Neurologic: alert, oriented x 3 Yakelin Arnett M.D. Feb 17, 2020 14:12
[2020-02-17 16:00] VITALS: BP 138/83
[2020-02-17 20:00] VITALS: BP 132/88
--- NOTE | 2020-02-17 20:10 | NUR ---
HAND-OFF: Report given to Ya WAITE.
--- NOTE | 2020-02-17 20:20 | NUR ---
NURSE NOTES: Received patient from RYANN Benito. Patient id awake, alert and oriented x 4. Patient is watching TV and currently showing no signs of acute distress. Patient asked for ice chips because she is NPO. Patient is on room air. Patient has Left 20 gauge AC IV and Right wrist 20 gauge IV. Bed is in lowest position, call light within reach. Will continue to monitor.
[2020-02-17] MEDS: POTASSIUM PHOSPHATE IV SCH (21:42)
[2020-02-17] MEDS: NS IV SCH (21:42)
[2020-02-18] VITALS (27 sets, daily range): BP systolic 93–126; BP diastolic 59–88
[2020-02-18] MEDS: NS w/KCl 20mEq 1000ml 1,000 ML IV SCH ×2 (05:46→20:15)
[2020-02-18] MEDS: NS IV SCH (05:47)
[2020-02-18] MEDS: POTASSIUM PHOSPHATE IV SCH (05:47)
[2020-02-18 07:16] LABS: BASOPHILS % (AUTO) 0.7 % (0.0-2.0); EOSINOPHILS % (AUTO) 0.1 % (0.0-3.0); HEMATOCRIT 30.4 % (37.0-47.0); HEMOGLOBIN 10.4 G/DL (12.0-16.0); LYMPHOCYTES % (AUTO) 23.5 % (20.0-45.0); MEAN CORPUSCULAR VOLUME 86 FL (80-99); MONOCYTES % (AUTO) 7.7 % (1.0-10.0); NEUTROPHILS % (AUTO) 68.1 % (45.0-75.0); PLATELET COUNT 167 K/UL (150-450); RED BLOOD COUNT 3.54 M/UL (4.20-5.40); RED CELL DISTRIBUTION WIDTH 13.6 % (11.6-14.8); WHITE BLOOD COUNT 5.5 K/UL (4.8-10.8)
[2020-02-18 07:33] LABS: ALANINE AMINOTRANSFERASE 17 U/L (12-78); ALBUMIN 2.6 G/DL (3.4-5.0); ALKALINE PHOSPHATASE 47 U/L (46-116); ANION GAP 14 mmol/L (5-15); ASPARTATE AMINO TRANSFERASE 31 U/L (15-37); BILIRUBIN,TOTAL 0.8 MG/DL (0.2-1.0); BLOOD UREA NITROGEN 15 mg/dL (7-18); CARBON DIOXIDE 26 MMOL/L (21-32); CHLORIDE 106 MMOL/L (98-107); CREATININE 0.6 MG/DL (0.55-1.30); POTASSIUM 3.3 MMOL/L (3.5-5.1); SODIUM 146 MMOL/L (136-145)
--- NOTE | 2020-02-18 07:37 | NUR ---
NURSE HAND-OFF REPORT: Important Events on Shift:[Patient had an emesis episode. Small amount of clear liquid was vomited.] Patient Status: [Stable] Diet: [NPO for colonoscopy] Pending Orders: [] Pending Results/Labs:[] Pending MD notification:[] Latest Vital Signs: Temperature 97.7 , Pulse 97 , B/P 126 /88 , Respiratory Rate 20 , O2 SAT 97 , Room Air, O2 Flow Rate . Vital Sign Comment: [] EKG Rhythm: Sinus Rhythm Rhythm change?: N MD Notified?: N - MD Response: Latest Scherer Fall Score: 20 Fall Risk: Low Risk Safety Measures: Call light Within Reach, Bed Alarm Zone 1, Side Rails Side Rails x2, Bed position Low and Locked. Fall Precautions: Patient Fall Education Report given to [RYANN Benito].
[2020-02-18 07:38] LABS: PHOSPHORUS 3.5 MG/DL (2.5-4.9)
--- NOTE | 2020-02-18 07:46 | NUR ---
NURSE NOTES: Pt received from Ya GARZON. pt in bed resting. Awake and alert. Withdrawn at this time. Pt has slight anxiety about current medical condition and pending colonoscopy. No complaints of pain or distress at this time. Call light within reach. Whiteboard updated.
--- NOTE | 2020-02-18 08:57 | NUR ---
CASE MANAGEMENT:REVIEW 02/18/20 SI: BOWEL OBSTRUCTION 96.3 94 18 119/77 97% ON RA H/H-10.4/30.4 NA+146 K-3.3 IS: IVF+KCL@50/HR IV ZOFRAN Q6HRS PRN COLONOSCOPY RESCHEDULED FOR TODAY : TELEMETRY STATUS DCP: FROM HOME PLAN: COLONOSCOPY RESCHEDULED FOR TODAY CLINICALS FAXED TO: [facility] T: [phone] opt 1 F: [phone] REF #[id number]
--- NOTE | 2020-02-18 09:50 | Anethesia Preoperative Eval ---
Anesthesia Pre-op PMH/ROS General Date of Evaluation: Feb 18, 2020 Time of Evaluation: 09:50 Anesthesiologist: ileana ASA Score: ASA 3 Mallampati Score Class I : Soft palate, uvula, fauces, pillars visible Class II: Soft palate, uvula, fauces visible Class III: Soft palate, base of uvula visible Class IV: Only hard plate visible Mallampati Classification: Class II Surgeon: Joycelyn Diagnosis: Anemia Surgical Procedure: Colonoscopy Anesthesia History: none Family History: no anesthesia problems Allergies: Coded Allergies: No Known Allergies (Unverified , 02/15/20) Medications: see eMAR Patient NPO?: Yes NPO Date: Feb 18, 2020 NPO Time: 00:01 Past Medical History Cardiovascular: Reports: HTN; Denies: CAD, SC, valve dz, arrhythmia, other Pulmonary: Denies: asthma, COPD, ED, other Gastrointestinal/Genitourinary: Reports: GERD; Denies: CRI, ESRD, other Neurologic/Psychiatric: Denies: dementia, CVA, depression/anxiety, TIA, other Endocrine: Denies: DM, hypothyroidism, steroids, other HEENT: Denies: cataract (L), cataract (R), glaucoma, [place] (L), [place] (R), other Hematology/Immune: Reports: anemia; Denies: DVT, bleeding disorder, other Musculoskeletal/Integumentary: Denies: OA, RA, DJD, DDD, edema, other PSxH Narrative: unknown Anesthesia Pre-op Phys. Exam Physician Exam Last Vital Signs Date Time Temp Pulse Resp B/P (MAP) Pulse Ox O2 Delivery O2 Flow Rate FiO2 02/18/20 08:00 89 02/18/20 08:00 96.3 18 119/77 (91) 97 02/17/20 21:00 Room Air Constitutional: NAD Neurologic: CN 2-12 intact Cardiovascular: RRR Respiratory: CTA Gastrointestinal: S/NT/ND Airway Exam Mallampati Classification 2 Mallampati Score: Class II MO: full ROM: full Dentures: no upper, no lower Anesthesia Pre-op A/P Labs Hematology Test 02/18/20 05:38 White Blood Count 5.5 K/UL (4.8-10.8) Red Blood Count 3.54 M/UL (4.20-5.40) L Hemoglobin 10.4 G/DL (12.0-16.0) L Hematocrit 30.4 % (37.0-47.0) L Mean Corpuscular Volume 86 FL (80-99) Mean Corpuscular Hemoglobin 29.5 PG (27.0-31.0) Mean Corpuscular Hemoglobin Concent 34.3 G/DL (32.0-36.0) Red Cell Distribution Width 13.6 % (11.6-14.8) Platelet Count 167 K/UL (150-450) Mean Platelet Volume 6.9 FL (6.5-10.1) Neutrophils (%) (Auto) 68.1 % (45.0-75.0) Lymphocytes (%) (Auto) 23.5 % (20.0-45.0) Monocytes (%) (Auto) 7.7 % (1.0-10.0) Eosinophils (%) (Auto) 0.1 % (0.0-3.0) Basophils (%) (Auto) 0.7 % (0.0-2.0) Chemistry Test 02/18/20 05:38 Sodium Level 146 MMOL/L (136-145) H Potassium Level 3.3 MMOL/L (3.5-5.1) L Chloride Level 106 MMOL/L (98-107) Carbon Dioxide Level 26 MMOL/L (21-32) Anion Gap 14 mmol/L (5-15) Blood Urea Nitrogen 15 mg/dL (7-18) Creatinine 0.6 MG/DL (0.55-1.30) Estimat Glomerular Filtration Rate > 60 mL/min (>60) Glucose Level 80 MG/DL (74-106) Calcium Level 7.0 MG/DL (8.5-10.1) L Phosphorus Level 3.5 MG/DL (2.5-4.9) Magnesium Level 2.6 MG/DL (1.8-2.4) H Total Bilirubin 0.8 MG/DL (0.2-1.0) Aspartate Amino Transf (AST/SGOT) 31 U/L (15-37) Alanine Aminotransferase (ALT/SGPT) 17 U/L (12-78) Alkaline Phosphatase 47 U/L (46-116) Total Protein 5.1 G/DL (6.4-8.2) L Albumin 2.6 G/DL (3.4-5.0) L Globulin 2.5 g/dL Albumin/Globulin Ratio 1.0 (1.0-2.7) Studies Pre-op Studies: EKG - SR Risk Assessment & Plan Assessment: distended abd Plan: mac Status Change Before Surgery: No Pre-Antibiotics Drug: none Anna Serra CRNA Feb 18, 2020 09:50
--- NOTE | 2020-02-18 10:17 | NUR ---
NURSE NOTES: pt taken down for GI procedure. Tele monitor left in place. Will ensure we get it back.
[2020-02-18] MEDS ORDERED: LR 1000ml ONE ×2 (10:30→15:00)
[2020-02-18] MEDS ORDERED: Lidocaine 1% MPF 10mg/ml 5ml ONE ×2 (10:30→15:12)
[2020-02-18] MEDS ORDERED: Phenylephrine 10mg/ml Vial ONE ×2 (10:30→15:00)
--- NOTE | 2020-02-18 10:43 | Pre-Procedure Note/Attestation ---
Pre-Procedure Note/Attestation Complete Prior to Procedure Planned Procedure: not applicable Procedure Narrative: colonoscopy Indications for Procedure Pre-Operative Diagnosis: obstruction Attestation I attest that I discussed the nature of the procedure; its benefits; risks and complications; and alternatives (and the risks and benefits of such alternatives), prior to the procedure, with the patient (or the patient's legal manufacturers service representative). I attest that, if there was a reasonable possibility of needing a blood t ransfusion, the patient (or the patient's legal manufacturers service representative) was given the [facility] standardized written summary, pursuant to the Gene Joanna Blood Safety Act ([place] Health and Safety Code # 1645, as amended). I attest that I re-evaluated the patient just prior to the surgery and that there has been no change in the patient's H&P, except as documented below: Graeme Hirsch MD Feb 18, 2020 10:43
--- NOTE | 2020-02-18 10:50 | NUR ---
RADIOLOGY DEPT., ABDOMEN X-RAY PERFORMED.-P.DYE
--- NOTE | 2020-02-18 11:03 | Endoscopy Procedure Note ---
Endoscopy Procedure Note General Indication for Procedure: colon mass Procedures Performed: flexible sigmoidoscopy Operative Findings/Diagnosis: mass Specimen: yes Pt Tolerated Procedure Well: Yes Estimated Blood Loss: none Anesthesia Anesthesiologist: chaya Anesthesia: MAC Inserted Devices Implant(s) used?: No GI Core Measures 50 yrs or older w/o bx or poly: Not Applicable 10yrs. F/U recommended: Not Applicable Graeme Hirsch MD Feb 18, 2020 11:04
--- NOTE | 2020-02-18 11:11 | Immediate Post-Op Evaluation ---
Immediate Post-Op Evalulation Immediate Post-Op Evalulation Procedure: colonoscopy Date of Evaluation: Feb 18, 2020 Time of Evaluation: 11:10 IV Fluids: 250 Blood Pressure Systolic: 98 Blood Pressure Diastolic: 50 Pulse Rate: 98 Respiratory Rate: 14 O2 Sat by Pulse Oximetry: 98 Temperature (Fahrenheit): 97.8 Nausea: No Vomiting: No Patient Status: awake, reacts, patent Hydration Status: adequate Drug: none AlexriAnna bauer CRNA Feb 18, 2020 11:11
--- NOTE | 2020-02-18 11:13 | Surgery Progress Note ---
Surgery Progress Note Subjective Additional Comments scope done today. yesterday no time available. abd distended will discuss results with GI per report possible mass Objective Last 24 Hour Vital Signs Date Time Temp Pulse Resp B/P (MAP) Pulse Ox O2 Delivery O2 Flow Rate FiO2 02/18/20 09:00 Room Air 02/18/20 08:00 89 02/18/20 08:00 96.3 94 18 119/77 (91) 97 02/18/20 04:00 97.7 97 20 126/88 (101) 97 02/18/20 04:00 86 02/18/20 00:00 96.8 97 22 124/59 (80) 97 02/18/20 00:00 93 02/17/20 21:00 Room Air 02/17/20 20:00 96 02/17/20 20:00 97.6 95 20 132/88 (103) 97 02/17/20 16:00 97.7 83 19 138/83 (101) 100 83 02/17/20 16:00 94 02/17/20 12:00 94 02/17/20 12:00 98.2 83 20 138/76 (96) 99 83 I&O Intake and Output 02/17/20 02/18/20 19:00 07:00 Intake Total 50 ml 862 ml Output Total 2 ml Balance 50 ml 860 ml Intake IV Total 50 ml 862 ml Output Emesis 2 ml # Voids 1 Cardiovascular: RSR Respiratory: clear Abdomen: soft, distended, non-tender, decreased bowel sounds Extremities: no edema, no tenderness Laboratory Tests Test 02/18/20 05:38 White Blood Count 5.5 K/UL (4.8-10.8) Red Blood Count 3.54 M/UL (4.20-5.40) L Hemoglobin 10.4 G/DL (12.0-16.0) L Hematocrit 30.4 % (37.0-47.0) L Mean Corpuscular Volume 86 FL (80-99) Mean Corpuscular Hemoglobin 29.5 PG (27.0-31.0) Mean Corpuscular Hemoglobin Concent 34.3 G/DL (32.0-36.0) Red Cell Distribution Width 13.6 % (11.6-14.8) Platelet Count 167 K/UL (150-450) Mean Platelet Volume 6.9 FL (6.5-10.1) Neutrophils (%) (Auto) 68.1 % (45.0-75.0) Lymphocytes (%) (Auto) 23.5 % (20.0-45.0) Monocytes (%) (Auto) 7.7 % (1.0-10.0) Eosinophils (%) (Auto) 0.1 % (0.0-3.0) Basophils (%) (Auto) 0.7 % (0.0-2.0) Sodium Level 146 MMOL/L (136-145) H Potassium Level 3.3 MMOL/L (3.5-5.1) L Chloride Level 106 MMOL/L (98-107) Carbon Dioxide Level 26 MMOL/L (21-32) Anion Gap 14 mmol/L (5-15) Blood Urea Nitrogen 15 mg/dL (7-18) Creatinine 0.6 MG/DL (0.55-1.30) Estimat Glomerular Filtration Rate > 60 mL/min (>60) Glucose Level 80 MG/DL (74-106) Calcium Level 7.0 MG/DL (8.5-10.1) L Phosphorus Level 3.5 MG/DL (2.5-4.9) Magnesium Level 2.6 MG/DL (1.8-2.4) H Total Bilirubin 0.8 MG/DL (0.2-1.0) Aspartate Amino Transf (AST/SGOT) 31 U/L (15-37) Alanine Aminotransferase (ALT/SGPT) 17 U/L (12-78) Alkaline Phosphatase 47 U/L (46-116) Total Protein 5.1 G/DL (6.4-8.2) L Albumin 2.6 G/DL (3.4-5.0) L Globulin 2.5 g/dL Albumin/Globulin Ratio 1.0 (1.0-2.7) Plan Problems: (1) Lightheaded (2) Hypokalemia (3) Large bowel obstruction Assessment & Plan: 64-year-old female with abdominal distention potential large bowel obstruction. Afebrile, hemodynamic stable, labs noted no leukocytosis no pain no bleeding. No prior abdominal surgeries. Nausea and emesis clear liquid. Decreased appetite. Cannot recall last flatus or BM. CT as below. No direct mass or abnormality identified but there is absolutely identifiable transition at the rectosigmoid area with proximal dilatation. A colonoscopy is warranted but though would be with definitive risk of potential perforation. GI consult pending. Replace electrolytes. N.p.o. IV fluids will await scope for findings. Conceivably may require surgical intervention. Thank you for let me participate in patient's care will follow with recommendations GI consider for scope 02/17 will be available for surgery in case of emergency high risk for perforation or complication and understands. but strongly recommend scope prior to surgery for etiology purposes. There are several circumscribed low-density nonenhancing cysts noted in the liver. The spleen is homogeneous. Gallbladder is without sludge or stone and there is no wall thickening. The pancreas is unremarkable. Adrenals are normal in morphology. The kidneys are normal in size, shape and axis. Small bowel loops are nondistended. The dominant abnormality is severe colonic distention containing air-fluid levels and stool debris. Dilated colon extends down to the rectosigmoid junction where there is an apparent transition. The rectal vault is nondistended with only a small amount of stool. No definite discernible mass is detected there is There is no free fluid or free air. No pathologic adenopathy demonstrated. Bladder is empty. There is no suspicious superficial soft tissue or osseous abnormality. IMPRESSION: SEVERE COLONIC DISTENTION WITH AIR-FLUID LEVELS AND STOOL DEBRIS. THERE IS APPARENT TRANSITION AT THE RECTOSIGMOID JUNCTION WITH A RELATIVELY EMPTY RECTAL VAULT WITH ONLY SMALL AMOUNT OF STOOL. NO DEFINITE DISCERNIBLE MASS AT THE TRANSITION POINT. RECOMMEND GI CONSULTATION AND CONSIDER COLONOSCOPY. Swapnil Brito Feb 18, 2020 11:13
--- NOTE | 2020-02-18 11:40 | Pulmonology Progress Note ---
Subjective ROS Limited/Unobtainable: No Interval Events: None new Constitutional: Reports: no symptoms HEENT: Repors: no symptoms Respiratory: Reports: no symptoms Cardiovascular: Reports: no symptoms Gastrointestinal/Abdominal: Reports: constipation Genitourinary: Reports: no symptoms Allergies: Coded Allergies: No Known Allergies (Unverified , 02/15/20) Objective Last 24 Hour Vital Signs Date Time Temp Pulse Resp B/P (MAP) Pulse Ox O2 Delivery O2 Flow Rate FiO2 02/18/20 11:27 95 15 120/82 100 Room Air 02/18/20 11:17 100 16 120/80 100 Room Air 02/18/20 11:12 97 18 118/76 100 Simple Mask 6 02/18/20 11:11 98 14 98 02/18/20 11:07 97.8 94 24 98/72 100 Simple Mask 6 02/18/20 09:00 Room Air 02/18/20 08:00 89 02/18/20 08:00 96.3 94 18 119/77 (91) 97 02/18/20 04:00 97.7 97 20 126/88 (101) 97 02/18/20 04:00 86 02/18/20 00:00 96.8 97 22 124/59 (80) 97 02/18/20 00:00 93 02/17/20 21:00 Room Air 02/17/20 20:00 96 02/17/20 20:00 97.6 95 20 132/88 (103) 97 02/17/20 16:00 97.7 83 19 138/83 (101) 100 83 02/17/20 16:00 94 02/17/20 12:00 94 02/17/20 12:00 98.2 83 20 138/76 (96) 99 83 Intake and Output 02/17/20 02/18/20 19:00 07:00 Intake Total 50 ml 862 ml Output Total 2 ml Balance 50 ml 860 ml Intake IV Total 50 ml 862 ml Output Emesis 2 ml # Voids 1 General Appearance: no acute distress HEENT: normocephalic Respiratory: chest wall non-tender, lungs clear Cardiovascular: normal peripheral pulses Abdomen: distended Laboratory Tests 02/18/20 05:38: White Blood Count 5.5, Red Blood Count 3.54L, Hemoglobin 10.4L, Hematocrit 30.4L , Mean Corpuscular Volume 86, Mean Corpuscular Hemoglobin 29.5, Mean Corpuscular Hemoglobin Concent 34.3, Red Cell Distribution Width 13.6, Platelet Count 167, Mean Platelet Volume 6.9, Neutrophils (%) (Auto) 68.1, Lymphocytes (%) (Auto) 23.5, Monocytes (%) (Auto) 7.7, Eosinophils (%) (Auto) 0.1, Basophils (%) (Auto) 0.7, Sodium Level 146H, Potassium Level 3.3L, Chloride Level 106, Carbon Dioxide Level 26, Anion Gap 14, Blood Urea Nitrogen 15, Creatinine 0.6, Estimat Glomerular Filtration Rate > 60, Glucose Level 80, Calcium Level 7.0L, Phosphorus Level 3.5, Magnesium Level 2.6H, Total Bilirubin 0.8, Aspartate Amino Transf (AST/SGOT) 31, Alanine Aminotransferase (ALT/SGPT) 17, Alkaline Phosphatase 47, Total Protein 5.1L, Albumin 2.6L, Globulin 2.5, Albumin/Globulin Ratio 1.0 Current Medications Medications (Trade) Dose Ordered Sig/Fozia Route PRN Reason Start Time Stop Time Status Last Admin Dose Admin Hydromorphone HCl (Dilaudid) 0.5 mg Q4H PRN IVP For Pain 02/15/20 16:15 02/22/20 16:14 Ondansetron HCl (Zofran) 4 mg Q6H PRN IVP Nausea & Vomiting 02/15/20 16:15 03/16/20 16:14 Potassium Chloride/Sodium Chloride 1,000 ml @ 50 mls/hr Q20H IV 02/15/20 18:00 03/16/20 17:59 02/18/20 05:46 Assessment/Plan Assessment/Plan IMPRESSION: 1. Large-bowel obstruction, rule out fecal impaction. 2. Severe hypokalemia. 3. Hypertension. 4. Diuretic use. DISCUSSION: Replace potassium. Seen by Surgery. I will continue to follow carefully. Colonoscopy today May require surgery Hanna Cline Omar Syed MD Feb 18, 2020 11:40
--- NOTE | 2020-02-18 11:58 | Pre-Procedure Note/Attestation ---
Pre-Procedure Note/Attestation Complete Prior to Procedure Procedure Narrative: exploratory laparotomy, possible bowel resection, possible ostomy Indications for Procedure Pre-Operative Diagnosis: large bowel obstruction mass Attestation I attest that I discussed the nature of the procedure; its benefits; risks and complications; and alternatives (and the risks and benefits of such alternatives), prior to the procedure, with the patient (or the patient's legal medical customer service representative). I attest that, if there was a reasonable possibility of needing a blood transfusion, the patient (or the patient's legal medical customer service representative) was given the [facility] standardized written summary, pursuant to the Gene Joanna Blood Safety Act ([place] Health and Safety Code # 1645, as amended). I attest that I re-evaluated the patient just prior to the surgery and that there has been no change in the patient's H&P, except as documented below: Swapnil Brito Feb 18, 2020 11:58
--- NOTE | 2020-02-18 12:48 | Cardiology Progress Note ---
Assessment/Plan Status: stable Assessment/Plan Assessment Palpitations Constipation Abdominal distension PVCs dizziness Plan: monitor telemetry and orthostatics Outpatient Echo/Stress Clear to proceed with colonoscopy Replete electrolytes Subjective Cardiovascular: Reports: no symptoms Respiratory: Reports: no symptoms Gastrointestinal/Abdominal: Reports: no symptoms Genitourinary: Reports: no symptoms Subjective No acute events, plan for colonoscopy No fevers no chest pain, no bleeding. Objective Last 24 Hour Vital Signs Date Time Temp Pulse Resp B/P (MAP) Pulse Ox O2 Delivery O2 Flow Rate FiO2 02/18/20 12:00 97 02/18/20 11:35 97.9 95 14 117/79 100 Room Air 02/18/20 11:27 95 15 120/82 100 Room Air 02/18/20 11:17 100 16 120/80 100 Room Air 02/18/20 11:12 97 18 118/76 100 Simple Mask 6 02/18/20 11:11 98 14 98 02/18/20 11:07 97.8 94 24 98/72 100 Simple Mask 6 02/18/20 09:00 Room Air 02/18/20 08:00 89 02/18/20 08:00 96.3 94 18 119/77 (91) 97 02/18/20 04:00 97.7 97 20 126/88 (101) 97 02/18/20 04:00 86 02/18/20 00:00 96.8 97 22 124/59 (80) 97 02/18/20 00:00 93 02/17/20 21:00 Room Air 02/17/20 20:00 96 02/17/20 20:00 97.6 95 20 132/88 (103) 97 02/17/20 16:00 97.7 83 19 138/83 (101) 100 83 02/17/20 16:00 94 General Appearance: no apparent distress, alert EENT: PERRL/EOMI, normal ENT inspection, pharynx normal Neck: non-tender, normal alignment, normal inspection Rhythm: NSR Cardiovascular: normal peripheral pulses, normal rate, regular rhythm Respiratory/Chest: chest wall non-tender, lungs clear, normal breath sounds Abdomen: decreased bowel sounds, distended, mass Extremities: normal range of motion, non-tender, normal inspection 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: 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 II-XII grossly normal, no motor/sensory deficits Intake and Output 02/17/20 02/18/20 19:00 07:00 Intake Total 50 ml 862 ml Output Total 2 ml Balance 50 ml 860 ml Intake IV Total 50 ml 862 ml Output Emesis 2 ml # Voids 1 Laboratory Tests Test 02/18/20 05:38 White Blood Count 5.5 K/UL (4.8-10.8) Red Blood Count 3.54 M/UL (4.20-5.40) L Hemoglobin 10.4 G/DL (12.0-16.0) L Hematocrit 30.4 % (37.0-47.0) L Mean Corpuscular Volume 86 FL (80-99) Mean Corpuscular Hemoglobin 29.5 PG (27.0-31.0) Mean Corpuscular Hemoglobin Concent 34.3 G/DL (32.0-36.0) Red Cell Distribution Width 13.6 % (11.6-14.8) Platelet Count 167 K/UL (150-450) Mean Platelet Volume 6.9 FL (6.5-10.1) Neutrophils (%) (Auto) 68.1 % (45.0-75.0) Lymphocytes (%) (Auto) 23.5 % (20.0-45.0) Monocytes (%) (Auto) 7.7 % (1.0-10.0) Eosinophils (%) (Auto) 0.1 % (0.0-3.0) Basophils (%) (Auto) 0.7 % (0.0-2.0) Sodium Level 146 MMOL/L (136-145) H Potassium Level 3.3 MMOL/L (3.5-5.1) L Chloride Level 106 MMOL/L (98-107) Carbon Dioxide Level 26 MMOL/L (21-32) Anion Gap 14 mmol/L (5-15) Blood Urea Nitrogen 15 mg/dL (7-18) Creatinine 0.6 MG/DL (0.55-1.30) Estimat Glomerular Filtration Rate > 60 mL/min (>60) Glucose Level 80 MG/DL (74-106) Calcium Level 7.0 MG/DL (8.5-10.1) L Phosphorus Level 3.5 MG/DL (2.5-4.9) Magnesium Level 2.6 MG/DL (1.8-2.4) H Total Bilirubin 0.8 MG/DL (0.2-1.0) Aspartate Amino Transf (AST/SGOT) 31 U/L (15-37) Alanine Aminotransferase (ALT/SGPT) 17 U/L (12-78) Alkaline Phosphatase 47 U/L (46-116) Total Protein 5.1 G/DL (6.4-8.2) L Albumin 2.6 G/DL (3.4-5.0) L Globulin 2.5 g/dL Albumin/Globulin Ratio 1.0 (1.0-2.7) Roby Reyes MD Feb 18, 2020 12:48
[2020-02-18] MEDS ORDERED: Bacitracin 50000 Units Vial ONE (13:13)
[2020-02-18] MEDS ORDERED: NeoSporin Gu Irrig 1ml Amp IRRIG ONE (13:13)
[2020-02-18] MEDS ORDERED: Labetalol 5mg/ml 20ml vial IV PRN (13:15)
[2020-02-18] MEDS ORDERED: Midazolam 2mg/2ml Inj IVP PRN (13:15)
[2020-02-18] MEDS ORDERED: fentaNYL 100 mcg/2 mL IV PRN (13:15)
[2020-02-18] MEDS ORDERED: Ketorolac 30mg Inj IV PRN ×2 (13:15)
[2020-02-18] MEDS ORDERED: HYDROcodone/Acetamin 5/325 tab ORAL PRN (13:15)
[2020-02-18] MEDS ORDERED: Atropine Sulfate 0.4mg/ml inj IVP PRN (13:15)
[2020-02-18] MEDS ORDERED: DiphenhydrAMINE 50mg/ml Inj IVP PRN ×2 (13:15→17:15)
[2020-02-18] MEDS ORDERED: Metoclopramide 10mg/2ml Inj IVP PRN (13:15)
[2020-02-18] MEDS ORDERED: Acetaminophen (Non formulary) 100 ML IV ONE (13:15)
[2020-02-18] MEDS ORDERED: HYDROcodone/Acetamin 7.5/325 tab ORAL PRN (13:15)
[2020-02-18] MEDS ORDERED: Meperidine 25mg/0.5ml Inj (FOR RIGORS ONLY) IV PRN (13:15)
[2020-02-18] MEDS ORDERED: LORazepam Inj 2mg/ml 1ml IV PRN (13:15)
[2020-02-18] MEDS ORDERED: oxyCODONE HCL/Acetaminophen 5/325mg ORAL PRN (13:15)
[2020-02-18] MEDS ORDERED: LR 1000ml 1,000 ML IVLG SCH (13:15)
[2020-02-18] MEDS ORDERED: Hydromorphone 0.5mg/0.5ml inj IVP PRN (13:15)
[2020-02-18] MEDS ORDERED: Sterile Water Irrig 1000ml IRRIG ONE (15:00)
[2020-02-18] MEDS ORDERED: Neostigmine 1mg/ml 10ml Inj ONE (15:00)
[2020-02-18] MEDS ORDERED: NS Irrig 1000ml ONE (15:00)
[2020-02-18] MEDS ORDERED: Sodium Chloride 10ml vial INJ ONE (15:12)
[2020-02-18] MEDS ORDERED: fentaNYL 100 mcg/2 mL IV ONE (15:17)
[2020-02-18] MEDS ORDERED: NS Irrig 1000ml IRRIG ONE ×2 (15:26→15:43)
[2020-02-18] MEDS ORDERED: ePHEDrine 50mg/ml Inj ONE (15:30)
--- NOTE | 2020-02-18 16:26 | Diagnostic Imaging Report ---
Indication: Reason For Exam: PAIN Technique: AP views of the abdomen Comparison: CT abdomen pelvis dated 02/15/2020 and abdominal radiograph dated 02/16/2020 Findings: Redemonstration of severe gaseous distention of the colon, similar appearance prior examination. Lung bases remain clear. IMPRESSION: Persistent extreme gaseous distention of the colon. Please note that pneumoperitoneum cannot be excluded on supine radiographs.
[2020-02-18] MEDS ORDERED: Metoprolol Tartrate 5mg/5ml Inj ONE (16:33)
--- NOTE | 2020-02-18 16:44 | Procedure Note ---
DATE OF PROCEDURE: 02/18/2020 SURGEON: Graeme Hirsch MD PROCEDURE: Flexible sigmoidoscopy with biopsy. ANESTHESIA: Per DIP PAINTER, Anna Tarrillion. INSTRUMENT: Olympus adult flexible colonoscope. INDICATION: Colonic mass. The procedure, risks, benefits, and possible consequences, including hemorrhage, aspiration, perforation and infection, and alternative treatments, were explained to the patient/legal guardian by Dr. Graeme Hirsch and the patient/legal guardian understood and accepted these risks. PROCEDURE IN DETAIL: After informed consent was obtained and the patient was adequately sedated, first rectal exam was performed, which was positive for internal hemorrhoids. Then, the scope was advanced from the rectum into the rectosigmoid area. At about 23 cm from the anal verge, we found a mass almost obstructing. We could not pass the scope beyond this point. The prep was extremely poor. Multiple biopsies from this mass were obtained. We tattooed the area for the future surgeries. SUMMARY OF FINDINGS: 1. Poor prep. 2. Mass in the rectosigmoid area at about 22 to 23 cm from anal verge, unable to pass the scope. 3. Status post multiple biopsies. RECOMMENDATIONS: Follow up biopsy results and treat accordingly. The patient most probably will need surgery because this mass is causing obstruction. Graeme Hirsch M.D. DR: LEONIE JOB#: [id number] CC:
[2020-02-18] MEDS ORDERED: Glycopyrrolate 0.2mg/ml 1ml Vial ONE (17:00)
--- NOTE | 2020-02-18 17:13 | Brief Operative Note ---
Immediate Post Operative Note Operative Note Pre-op Diagnosis: large bowel obstruction mass Procedure: ex lap left colectomy mobilization of splenic flexure omentectomy primary anastomosis Post-op Diagnosis: same as pre-op Surgeon: edward brito Anesthesiologist: aris Anesthesia: general Specimen: yes Complications: none Condition: stable Fluids: see Estimated Blood Loss: volume - 50 Drains: none Implant(s) used?: No Edward Brito Feb 18, 2020 17:13
[2020-02-18] MEDS ORDERED: Morphine Sulfate 2mg/ml Inj(IV/IM USE ONLY) IVP PRN ×2 (17:15)
[2020-02-18] MEDS ORDERED: Morphine Sulfate 4mg/ml Inj (IV USE ONLY) IVP PRN (17:15)
--- NOTE | 2020-02-18 17:55 | Immediate Post-Op Evaluation ---
Immediate Post-Op Evalulation Immediate Post-Op Evalulation Procedure: Ex Lap Date of Evaluation: Feb 18, 2020 Time of Evaluation: 18:05 IV Fluids: 1200 LR Blood Products: 0 Estimated Blood Loss: 50 Urinary Output: 300 Blood Pressure Systolic: 96 Blood Pressure Diastolic: 68 Pulse Rate: 92 Respiratory Rate: 16 O2 Sat by Pulse Oximetry: 100 Temperature (Fahrenheit): 97 Pain Score (1-10): 1 Nausea: No Vomiting: No Complications 0 Patient Status: awake, reacts, patent, extubated, none Hydration Status: adequate Dru Gram Ancef IV Given Within 1 Hr of Incision: Yes Time Given: 15:21 Shay Mcginnis MD Feb 18, 2020 17:55
--- NOTE | 2020-02-18 18:21 | Nephrology Progress Note ---
Assessment/Plan Plan #Severe hypokalemia #Abdominal distention - bowel obstruction #htn #Dehydration #HLD - IVF - replete K, mag and phos - NPO - monitor lytes - avoid nephrotoxins - GI eval - plan for colonoscopy - gen surg eval Subjective Subjective K remains low getting Iv repletion mag and phos low remains NPO plan for colonoscopy today Objective Objective Last 24 Hour Vital Signs Date Time Temp Pulse Resp B/P (MAP) Pulse Ox O2 Delivery O2 Flow Rate FiO2 02/18/20 18:15 90 24 108/76 100 Simple Mask 6 02/18/20 18:05 91 24 106/77 100 Simple Mask 6 02/18/20 18:00 90 24 101/74 100 Simple Mask 6 02/18/20 17:55 91 24 95/60 100 Simple Mask 6 02/18/20 17:55 92 16 100 02/18/20 17:50 97.0 95 25 96/71 100 Simple Mask 6 02/18/20 12:00 97 02/18/20 11:35 97.9 95 14 117/79 100 Room Air 02/18/20 11:27 95 15 120/82 100 Room Air 02/18/20 11:17 100 16 120/80 100 Room Air 02/18/20 11:12 97 18 118/76 100 Simple Mask 6 02/18/20 11:11 98 14 98 02/18/20 11:07 97.8 94 24 98/72 100 Simple Mask 6 02/18/20 09:00 Room Air 02/18/20 08:00 89 02/18/20 08:00 96.3 94 18 119/77 (91) 97 02/18/20 04:00 97.7 97 20 126/88 (101) 97 02/18/20 04:00 86 02/18/20 00:00 96.8 97 22 124/59 (80) 97 02/18/20 00:00 93 02/17/20 21:00 Room Air 02/17/20 20:00 96 02/17/20 20:00 97.6 95 20 132/88 (103) 97 Intake and Output 02/17/20 02/18/20 19:00 07:00 Intake Total 50 ml 862 ml Output Total 2 ml Balance 50 ml 860 ml Intake IV Total 50 ml 862 ml Emesis 2 ml # Voids 1 Laboratory Tests 02/18/20 05:38: White Blood Count 5.5, Red Blood Count 3.54L, Hemoglobin 10.4L, Hematocrit 30.4L , Mean Corpuscular Volume 86, Mean Corpuscular Hemoglobin 29.5, Mean Corpuscular Hemoglobin Concent 34.3, Red Cell Distribution Width 13.6, Platelet Count 167, Mean Platelet Volume 6.9, Neutrophils (%) (Auto) 68.1, Lymphocytes (%) (Auto) 23.5, Monocytes (%) (Auto) 7.7, Eosinophils (%) (Auto) 0.1, Basophils (%) (Auto) 0.7, Sodium Level 146H, Potassium Level 3.3L, Chloride Level 106, Carbon Dioxide Level 26, Anion Gap 14, Blood Urea Nitrogen 15, Creatinine 0.6, Estimat Glomerular Filtration Rate > 60, Glucose Level 80, Calcium Level 7.0L, Phosphorus Level 3.5, Magnesium Level 2.6H, Total Bilirubin 0.8, Aspartate Amino Transf (AST/SGOT) 31, Alanine Aminotransferase (ALT/SGPT) 17, Alkaline Phosphatase 47, Total Protein 5.1L, Albumin 2.6L, Globulin 2.5, Albumin/Globulin Ratio 1.0 Height (Feet): 5 Height (Inches): 4.00 Weight (Pounds): 113 Yakelin Arnett M.D. Feb 18, 2020 18:20
--- NOTE | 2020-02-18 19:24 | NUR ---
NURSE NOTES: Patient arrived to ICU unit via gurney accompanied by RYANN Cabrera at 192. Received report from RYANN Benito at 2001. patient asleep arousable to name oriented x3. respirations shallow but unlabored with simple mask on 2L NC. patient denied pain. BP 98/63 HR99 NSR on monitor temp 970F axillary, blankets applied. left hand PIV #22 asymptomatic. abdomen soft nondistended, with abdominal surgical incision, dressing clean and intact. Leiva catheter draining yellow urine. patient repositioned and oral care provided, SCD's on.
--- NOTE | 2020-02-18 20:00 | Operative Note - Dictated ---
DATE OF OPERATION: 02/18/2020 PREOPERATIVE DIAGNOSIS: Large-bowel obstruction secondary to obstructive tumor. POSTOPERATIVE DIAGNOSIS: Large-bowel obstruction secondary to obstructive tumor. OPERATION PERFORMED: 1. Exploratory laparotomy. 2. Left colectomy. 3. Mobilization of splenic flexure. 4. Partial omentectomy. 5. Primary xxaj-ax-nnpp colonic anastomosis. 6. Abdominal washout and closure. ATTENDING SURGEON: Swapnil Brito MD LOG HANDLING EQUIPMENT OPERATOR: None. ANESTHESIOLOGIST: Shay Mcginnis MD ANESTHESIA: General GENERAL DUTY NURSE. ESTIMATED BLOOD LOSS: 50 mL. IV FLUIDS: Please see anesthesia records. COMPLICATIONS: None. DRAINS: None. COUNTS: Sponge and needle count correct x2. WOUND CLASSIFICATION: Class III. SPECIMENS: 1. Omentum. 2. Left colon. INDICATIONS FOR PROCEDURE: This 64-year-old female presented to [facility] complaining of worsening abdominal distention, nausea, and vomiting. CT scan identified large-bowel dilatation with transition point in the left side, descending, but no large mass was identified at this time. Colonoscopy was performed and it could not transverse through a tumor, likely a cancer. The patient has not had prior colonoscopy and does not have regular followup. Risks, benefits, and alternatives of the intervention discussed with the patient. She is completely obstructed, not passing gas, currently not having bowel movements for a significant period of time, worsening distention, persistent imaging with distention, large-bowel obstruction complete, and this emergent surgery indicated and recommended. The discussion was had with the patient prior when considerations of anastomosis versus colostomy, potential reoperation of cancer surgery versus non-oncological for emergency. After all of this was discussed, the patient consented to the procedure, which was placed for 02/18/2020. OPERATIVE NOTE: The patient was taken to the operating room and placed on the operating table in supine position with bilateral arms out. All bony prominences were well padded. SCDs were placed. Preoperative time-out was taken identifying the patient, procedure, operative staff, and surgical staff. General anesthesia was induced. The patient was intubated. Leiva catheter was placed under sterile technique. Abdomen was clipped, prepped, and draped in standard surgical fashion. An infraumbilical midline incision was made and carried down through subcutaneous tissue and the fascia. Abdomen was entered without complication. Immediately upon entry into the abdomen, a significant amount of small and large bowel, which was gas-filled and distended came out. Gentle mobilization of the white line of Toldt on the left side allowed freedom of the colon and at this time, the tattooing and the mass was identified. The mass was causing complete obstruction. There was significant bowel dilatation of up to 15 cm on the left colon. White line of Toldt and the sigmoid colon was mobilized down the peritoneal reflection and up to the splenic flexure. The splenic flexure was released and the bowel was brought into the operative field. The decompressed distal bowel was identified. A window was made in the mesentery 5 cm away from the tumor and a linear stapler was used and the bowel was divided. The mesentery was then divided towards the root of the mesentery of the left colon and distal sigmoid colon. The left colic artery was identified, tied with a 0 tie, and divided. Thunderbeat device was used and the mesentery was divided. This was taken to a point of appropriate non-tension free bowel and given the location of the tumor with significant bowel distention and anatomy and the dissection required, decision was made to divide the bowel at the left transverse colon. A window was formed in the left transverse colon where the bowel was dilated, but not as much as distally and linear 75 mm stapler was used and bowel was divided. The remaining mesentery was divided using the Thunderbeat device. The specimen was sent to Pathology for review. Following this, the bowel was decompressed with suctioning and the abdomen was washed with copious amounts of warm saline in all quadrants. Hemostasis was noted and identified. At this time, a part of the omentum required excision. Partial omentectomy was performed given this was the portion that was dangling off the left transverse colon. Once this was completed, the bowel though slightly discrepant in size was appropriate and viable for primary anastomosis. A nvax-ah-lwkr anastomosis was performed between the distal sigmoid colon and the remainder of the left transverse colon. The bowel was brought together without tension. Stay sutures were placed and incisions were made in both portions of the bowel. A 2-0 Vicryl suture running was performed and a hand-sewn jwrn-vs-yipv anastomosis was done without complication. The 3-0 silk Lembert sutures imbricated the suture line. Good patency was identified. No complication. No significant leaking. No ischemia. At this time, the abdomen was reinspected. Good hemostasis noted. We irrigated and suctioned clean. We began the conclusion of our procedure. Of note, there was significant cecal laxity as well and cecal fell comfortably into the pelvis. Decision was not made to perform any intervention at this time for it was otherwise clinically benign. The fascia was reapproximated using #0 PDS running suture followed by reapproximation of the skin after it was cleansed using surgical skin wing. Dressings were applied. The patient tolerated the procedure well and given the duration of procedure, the operative findings, and the anesthetic, decision was made to leave the patient intubated and taken to the ICU for appropriate extubation when more awake. Swapnil Brito M.D. DR: Yeyo JOB#: [id number] CC:
--- NOTE | 2020-02-18 20:02 | NUR ---
HAND-OFF: Report given to Stacey GARZON. Pt belongings taken over along with IV pole.
[2020-02-18] MEDS: Piperacillin/Tazobactam 3.375 GM in NS 110 ML IVPB SCH (21:36)
--- NOTE | 2020-02-18 22:00 | NUR ---
NURSE NOTES: patient asleep arousable to name oriented x3. respirations shallow but unlabored with simple mask on 2L NC. BP 106/69 HR94 NSR on monitor. left forearm #20 and right hand PIV #22 running NS with 20meq KCL @100ml/hr. patient stated relief from prn morphine. patient with abdominal surgical incision, dressing clean and intact. Leiva catheter draining yellow urine. skin clean dry with ecchymosis noted, and bilateral foot trace nonpitting edema. patient repositioned and oral care provided, SCD's on.
[2020-02-19] VITALS (19 sets, daily range): BP systolic 90–117; BP diastolic 55–75
--- NOTE | 2020-02-19 | NUR ---
NURSE NOTES: patient asleep arousable to name oriented x3. respirations shallow but unlabored with simple mask on 2L NC. BP 104/68 HR96 NSR on monitor temp 97.6F axillary. RT [place], demonstrated use of incentive spirometer, patient verbalized understanding. patient refused to return demo at this time, will attempt at later time. left forearm #20 and right hand PIV #22 running NS with 20meq KCL @100ml/hr. patient with abdominal surgical incision, dressing clean and intact. Leiva catheter draining yellow urine. skin clean dry with ecchymosis noted, and bilateral foot trace nonpitting edema. patient repositioned and oral care provided, SCD's on.
--- NOTE | 2020-02-19 02:00 | NUR ---
NURSE NOTES: patient asleep arousable to name oriented x3. respirations shallow but unlabored with simple mask on 2L NC. BP 96/62 HR93 NSR on monitor. patient denies pain at this time. left forearm #20 and right hand PIV #22 running NS with 20meq KCL @100ml/hr. patient with abdominal surgical incision, dressing clean and intact. Leiva catheter draining morena urine. patient repositioned and oral care provided, SCD's on. bed locked lowest position, call light within reach.
--- NOTE | 2020-02-19 04:00 | NUR ---
NURSE NOTES: patient asleep arousable to name oriented x3. respirations shallow but unlabored with simple mask on 2L NC. BP 102/66 HR 104 sinus tachy on monitor and afebrile. left forearm #20 and right hand PIV #22 running NS with 20meq KCL @100ml/hr. patient with abdominal surgical incision, dressing clean and intact. Leiva catheter draining morena urine. patient bathed, repositioned and oral care provided, SCD's on. bed locked lowest position, call light within reach.
[2020-02-19] MEDS: NS w/KCl 20mEq 1000ml 1,000 ML IV SCH ×3 (05:13→16:38)
[2020-02-19] MEDS: Piperacillin/Tazobactam 3.375 GM in NS 110 ML IVPB SCH ×3 (05:13→20:43)
--- NOTE | 2020-02-19 05:23 | NUR ---
NURSE NOTES: Paged Dr. Zacarias to inquire on order to transfer out. no order obtained at this time.
[2020-02-19 05:42] LABS: BASOPHILS % (AUTO) 1.9 % (0.0-2.0); HEMATOCRIT 31.4 % (37.0-47.0); HEMOGLOBIN 10.4 G/DL (12.0-16.0); LYMPHOCYTES % (AUTO) 12.1 % (20.0-45.0); MEAN CORPUSCULAR VOLUME 87 FL (80-99); MONOCYTES % (AUTO) 3.2 % (1.0-10.0); NEUTROPHILS % (AUTO) 82.8 % (45.0-75.0); PLATELET COUNT 138 K/UL (150-450); RED BLOOD COUNT 3.61 M/UL (4.20-5.40); RED CELL DISTRIBUTION WIDTH 13.8 % (11.6-14.8); WHITE BLOOD COUNT 7.4 K/UL (4.8-10.8)
--- NOTE | 2020-02-19 06:00 | NUR ---
NURSE NOTES: patient asleep arousable to name oriented x3. respirations shallow but unlabored with simple mask on 2L NC. BP 101/65 HR 106 sinus tachy on monitor. left forearm #20 and right hand PIV #22 running NS with 20meq KCL @100ml/hr. patient with abdominal surgical incision, dressing clean and intact. patient stated feeling soreness at the incision site but declined pain medication. Leiva catheter draining morena urine. patient repositioned and oral care provided, SCD's on. skin clean dry with ecchymosis noted, and bilateral foot trace nonpitting edema. bed locked lowest position, call light within reach.
[2020-02-19 06:27] LABS: ALANINE AMINOTRANSFERASE 23 U/L (12-78); ALBUMIN 1.9 G/DL (3.4-5.0); ALBUMIN/GLOBULIN RATIO 0.9 (1.0-2.7); ALKALINE PHOSPHATASE 36 U/L (46-116); ANION GAP 15 mmol/L (5-15); ASPARTATE AMINO TRANSFERASE 40 U/L (15-37); BILIRUBIN,TOTAL 0.9 MG/DL (0.2-1.0); BLOOD UREA NITROGEN 14 mg/dL (7-18); CALCIUM 6.5 MG/DL (8.5-10.1); CARBON DIOXIDE 22 MMOL/L (21-32); CHLORIDE 108 MMOL/L (98-107); CREATININE 0.7 MG/DL (0.55-1.30); POTASSIUM 4.3 MMOL/L (3.5-5.1); SODIUM 145 MMOL/L (136-145)
--- NOTE | 2020-02-19 07:19 | NUR ---
NURSE HAND-OFF REPORT: Latest Vital Signs: Temperature 98.0 , Pulse 103 , B/P 105 /69 , Respiratory Rate 20 , O2 SAT 100 , Simple Mask, O2 Flow Rate 2.0 . Vital Sign Comment: EKG Rhythm: Sinus Tachycardia Rhythm change?: N MD Notified?: N - MD Response: Latest Scherer Fall Score: 20 Fall Risk: Low Risk Safety Measures: Call light Within Reach, Bed Alarm Zone 1, Side Rails Side Rails x2, Bed position Low and Locked. Fall Precautions: Patient Fall Education Report given to RYANN Cabrera. endorsed plan of care.
--- NOTE | 2020-02-19 07:45 | NUR ---
0745 AWAKE/ALERT REALITY ORIENTATION GIVEN ABLE TO COMMUNICATE/FOLLOWS COMADS WELL V/S CONDITION STABLE ENCOURAGED TAKE DEEP BREATH,COUGH USING I/S COOPERATIVE
--- NOTE | 2020-02-19 08:54 | NUR ---
PT Note Patient has been transferred to ICU. Will need new PT orders to initiate physical therapy.
--- NOTE | 2020-02-19 09:18 | 48 Hour Post Anesthesia Eval ---
Post Anesthesia Evaluation Procedure: Ex Lap Date of Evaluation: Feb 19, 2020 Time of Evaluation: 09:17 Blood Pressure Systolic: 105 0: 64 Pulse Rate: 104 Respiratory Rate: 22 Temperature (Fahrenheit): 97.6 O2 Sat by Pulse Oximetry: 98 Airway: patent Nausea: No Vomiting: No Pain Intensity: 2 Hydration Status: adequate Cardiopulmonary Status: stable Mental Status/LOC: patient returned to baseline Follow-up Care/Observations: n/a Post-Anesthesia Complications: none Follow-up care needed: N/A Rustam Delgado MD Feb 19, 2020 09:18
--- NOTE | 2020-02-19 09:22 | NUR ---
PT,SEEN BY CAMERON STUBBS/O2 CHANGED TO 2L/NC SAT 1005
--- NOTE | 2020-02-19 09:36 | NUR ---
RD ASSESSMENT & RECOMMENDATIONS SEE CARE ACTIVITY FOR COMPLETE ASSESSMENT DAILY ESTIMATED NEEDS: Needs based on GI, cardiac, surgery 50.4kg 25-30 kcals/kg 1381-9276 total kcals 1-2 g protein/kg 50-100 g total protein 25-30 mL/kg 9024-2302 total fluid mLs NUTRITION DIAGNOSIS: Altered GI fxn r/t bowel obstruction as evidenced by CT scan, last bm unknown, adm w/ distended abdomen, N/V w/ recent poor po intake, s/p ex lap, left colectomy and partial omentectomy, currently NPO. CURRENT DIET: NPO PO DIET RECOMMENDATIONS: Initiate diet per surgeon ADDITIONAL RECOMMENDATIONS: 1) Monitor NPO status (Day 4, POD #1) -> monitor need for TPN 2) Monitor lytes, replete as needed-> K critically low upon adm now wnl 3) Rec adding D5 to IVF while NPO to prevent hypoglycemia . .
--- NOTE | 2020-02-19 10:01 | General Progress Note ---
Subjective ROS Limited/Unobtainable: No Allergies: Coded Allergies: No Known Allergies (Unverified , 02/15/20) Objective Last 24 Hour Vital Signs Date Time Temp Pulse Resp B/P (MAP) Pulse Ox O2 Delivery O2 Flow Rate FiO2 02/19/20 09:18 104 22 98 02/19/20 09:00 97.5 112 23 105/71 (82) 100 02/19/20 08:00 111 21 111/75 (87) 100 02/19/20 08:00 113 02/19/20 07:00 103 20 105/69 (81) 100 02/19/20 06:00 106 22 101/65 (77) 100 02/19/20 05:00 103 18 98/66 (77) 100 02/19/20 04:00 98.0 104 25 102/66 (78) 100 02/19/20 04:00 108 02/19/20 03:00 94 17 95/65 (75) 100 02/19/20 02:00 93 20 96/62 (73) 100 02/19/20 01:00 95 20 90/55 (67) 100 02/19/20 00:00 97.6 96 18 104/68 (80) 100 02/19/20 00:00 Simple Mask 2.0 02/19/20 00:00 94 02/18/20 23:00 97 16 107/67 (80) 100 02/18/20 22:00 94 19 106/69 (81) 100 02/18/20 21:00 99 21 96/79 (85) 100 02/18/20 20:45 98 21 93/60 (71) 100 02/18/20 20:15 97 23 102/61 (75) 100 02/18/20 20:00 99 02/18/20 20:00 97.1 96 24 105/65 (78) 100 02/18/20 20:00 Simple Mask 2.0 02/18/20 19:45 95 24 104/66 (79) 100 02/18/20 19:30 97 24 102/67 (79) 100 02/18/20 19:20 97.4 92 24 95/65 100 Simple Mask 6 02/18/20 19:15 97.0 99 24 98/63 (75) 100 02/18/20 19:05 93 24 102/67 100 Simple Mask 6 02/18/20 18:50 92 25 104/66 100 Simple Mask 6 02/18/20 18:35 89 23 108/71 100 Simple Mask 6 02/18/20 18:25 90 25 107/75 100 Simple Mask 6 02/18/20 18:15 90 24 108/76 100 Simple Mask 6 02/18/20 18:05 91 24 106/77 100 Simple Mask 6 02/18/20 18:00 90 24 101/74 100 Simple Mask 6 02/18/20 17:55 91 24 95/60 100 Simple Mask 6 02/18/20 17:55 92 16 100 02/18/20 17:50 97.0 95 25 96/71 100 Simple Mask 6 02/18/20 12:00 97 02/18/20 11:35 97.9 95 14 117/79 100 Room Air 02/18/20 11:27 95 15 120/82 100 Room Air 02/18/20 11:17 100 16 120/80 100 Room Air 02/18/20 11:12 97 18 118/76 100 Simple Mask 6 02/18/20 11:11 98 14 98 02/18/20 11:07 97.8 94 24 98/72 100 Simple Mask 6 Intake and Output 02/18/20 02/19/20 19:00 07:00 Intake Total 1500 ml 1923.3743 ml Output Total 350 ml 515 ml Balance 1150 ml 1408.3743 ml Intake IV Total 1500 ml 1923.3743 ml Output Urine Total 300 ml 515 ml Estimated Blood Loss 50 ml Laboratory Tests 02/19/20 04:45: White Blood Count 7.4, Red Blood Count 3.61L, Hemoglobin 10.4L, Hematocrit 31.4L , Mean Corpuscular Volume 87, Mean Corpuscular Hemoglobin 28.9, Mean Corpuscular Hemoglobin Concent 33.2, Red Cell Distribution Width 13.8, Platelet Count 138L, Mean Platelet Volume 6.9, Neutrophils (%) (Auto) 82.8H, Lymphocytes (%) (Auto) 12.1L, Monocytes (%) (Auto) 3.2, Eosinophils (%) (Auto) 0.0, Basophils (%) (Auto) 1.9, Sodium Level 145, Potassium Level 4.3, Chloride Level 108H, Carbon Dioxide Level 22, Anion Gap 15, Blood Urea Nitrogen 14, Creatinine 0.7, Estimat Glomerular Filtration Rate > 60, Glucose Level 134H, Calcium Level 6.5L, Total Bilirubin 0.9, Aspartate Amino Transf (AST/SGOT) 40H, Alanine Aminotransferase ( ALT/SGPT) 23, Alkaline Phosphatase 36L, Total Protein 4.1L, Albumin 1.9L, Globulin 2.2, Albumin/Globulin Ratio 0.9L Height (Feet): 5 Height (Inches): 4.00 Weight (Pounds): 113 General Appearance: no apparent distress EENT: normal ENT inspection Neck: supple Cardiovascular: tachycardia Respiratory/Chest: decreased breath sounds Abdomen: other - post surg Extremities: non-tender Assessment/Plan Problem List: (1) Large bowel obstruction ICD Codes: K56.609 - Unspecified intestinal obstruction, unspecified as to partial versus complete obstruction SNOMED: 536759152 (2) Hypokalemia ICD Codes: E87.6 - Hypokalemia SNOMED: 40346191 (3) Lightheaded ICD Codes: R42 - Dizziness and giddiness SNOMED: 871748347 Status: stable Assessment/Plan: colon cancer with bowel obstruction s/p resection POD #1 fi surg recs Graeme Hirsch MD Feb 19, 2020 10:01
--- NOTE | 2020-02-19 11:00 | Cardiology Progress Note ---
Assessment/Plan Status: stable Assessment/Plan Assessment Palpitations Constipation Abdominal distension PVCs dizziness Plan: monitor telemetry and orthostatics Outpatient Echo/Stress Clear to proceed with colonoscopy Replete electrolytes Subjective Cardiovascular: Reports: no symptoms Respiratory: Reports: no symptoms Gastrointestinal/Abdominal: Reports: no symptoms Genitourinary: Reports: no symptoms Subjective No acute events, plan for colonoscopy No fevers no chest pain, no bleeding. Objective Last 24 Hour Vital Signs Date Time Temp Pulse Resp B/P (MAP) Pulse Ox O2 Delivery O2 Flow Rate FiO2 02/19/20 09:18 104 22 98 02/19/20 09:00 97.5 112 23 105/71 (82) 100 02/19/20 08:00 111 21 111/75 (87) 100 02/19/20 08:00 113 02/19/20 07:00 103 20 105/69 (81) 100 02/19/20 06:00 106 22 101/65 (77) 100 02/19/20 05:00 103 18 98/66 (77) 100 02/19/20 04:00 98.0 104 25 102/66 (78) 100 02/19/20 04:00 108 02/19/20 03:00 94 17 95/65 (75) 100 02/19/20 02:00 93 20 96/62 (73) 100 02/19/20 01:00 95 20 90/55 (67) 100 02/19/20 00:00 97.6 96 18 104/68 (80) 100 02/19/20 00:00 Simple Mask 2.0 02/19/20 00:00 94 02/18/20 23:00 97 16 107/67 (80) 100 02/18/20 22:00 94 19 106/69 (81) 100 02/18/20 21:00 99 21 96/79 (85) 100 02/18/20 20:45 98 21 93/60 (71) 100 02/18/20 20:15 97 23 102/61 (75) 100 02/18/20 20:00 99 02/18/20 20:00 97.1 96 24 105/65 (78) 100 02/18/20 20:00 Simple Mask 2.0 02/18/20 19:45 95 24 104/66 (79) 100 02/18/20 19:30 97 24 102/67 (79) 100 02/18/20 19:20 97.4 92 24 95/65 100 Simple Mask 6 02/18/20 19:15 97.0 99 24 98/63 (75) 100 02/18/20 19:05 93 24 102/67 100 Simple Mask 6 02/18/20 18:50 92 25 104/66 100 Simple Mask 6 02/18/20 18:35 89 23 108/71 100 Simple Mask 6 02/18/20 18:25 90 25 107/75 100 Simple Mask 6 02/18/20 18:15 90 24 108/76 100 Simple Mask 6 02/18/20 18:05 91 24 106/77 100 Simple Mask 6 02/18/20 18:00 90 24 101/74 100 Simple Mask 6 02/18/20 17:55 91 24 95/60 100 Simple Mask 6 02/18/20 17:55 92 16 100 02/18/20 17:50 97.0 95 25 96/71 100 Simple Mask 6 02/18/20 12:00 97 02/18/20 11:35 97.9 95 14 117/79 100 Room Air 02/18/20 11:27 95 15 120/82 100 Room Air 02/18/20 11:17 100 16 120/80 100 Room Air 02/18/20 11:12 97 18 118/76 100 Simple Mask 6 02/18/20 11:11 98 14 98 02/18/20 11:07 97.8 94 24 98/72 100 Simple Mask 6 General Appearance: no apparent distress, alert EENT: PERRL/EOMI, normal ENT inspection, TMs normal, pharynx normal Neck: non-tender, normal alignment, supple, normal inspection Rhythm: NSR Cardiovascular: normal peripheral pulses, normal rate, regular rhythm Respiratory/Chest: chest wall non-tender, lungs clear, normal breath sounds Abdomen: normal bowel sounds, non tender, soft, no organomegaly, no mass Extremities: normal range of motion, non-tender, normal inspection, no calf tenderness, no swelling Neurologic: financial services intern II-XII grossly normal, no motor/sensory deficits Intake and Output 02/18/20 02/19/20 19:00 07:00 Intake Total 1500 ml 1923.3743 ml Output Total 350 ml 515 ml Balance 1150 ml 1408.3743 ml Intake IV Total 1500 ml 1923.3743 ml Output Urine Total 300 ml 515 ml Estimated Blood Loss 50 ml Laboratory Tests Test 02/19/20 04:45 White Blood Count 7.4 K/UL (4.8-10.8) Red Blood Count 3.61 M/UL (4.20-5.40) L Hemoglobin 10.4 G/DL (12.0-16.0) L Hematocrit 31.4 % (37.0-47.0) L Mean Corpuscular Volume 87 FL (80-99) Mean Corpuscular Hemoglobin 28.9 PG (27.0-31.0) Mean Corpuscular Hemoglobin Concent 33.2 G/DL (32.0-36.0) Red Cell Distribution Width 13.8 % (11.6-14.8) Platelet Count 138 K/UL (150-450) L Mean Platelet Volume 6.9 FL (6.5-10.1) Neutrophils (%) (Auto) 82.8 % (45.0-75.0) H Lymphocytes (%) (Auto) 12.1 % (20.0-45.0) L Monocytes (%) (Auto) 3.2 % (1.0-10.0) Eosinophils (%) (Auto) 0.0 % (0.0-3.0) Basophils (%) (Auto) 1.9 % (0.0-2.0) Sodium Level 145 MMOL/L (136-145) Potassium Level 4.3 MMOL/L (3.5-5.1) Chloride Level 108 MMOL/L (98-107) H Carbon Dioxide Level 22 MMOL/L (21-32) Anion Gap 15 mmol/L (5-15) Blood Urea Nitrogen 14 mg/dL (7-18) Creatinine 0.7 MG/DL (0.55-1.30) Estimat Glomerular Filtration Rate > 60 mL/min (>60) Glucose Level 134 MG/DL (74-106) H Calcium Level 6.5 MG/DL (8.5-10.1) L Total Bilirubin 0.9 MG/DL (0.2-1.0) Aspartate Amino Transf (AST/SGOT) 40 U/L (15-37) H Alanine Aminotransferase (ALT/SGPT) 23 U/L (12-78) Alkaline Phosphatase 36 U/L (46-116) L Total Protein 4.1 G/DL (6.4-8.2) L Albumin 1.9 G/DL (3.4-5.0) L Globulin 2.2 g/dL Albumin/Globulin Ratio 0.9 (1.0-2.7) L Roby Reyes MD Feb 19, 2020 11:00
--- NOTE | 2020-02-19 11:59 | Pulmonology Progress Note ---
Subjective ROS Limited/Unobtainable: No Interval Events: S/p colectomy Constitutional: Reports: no symptoms HEENT: Repors: no symptoms Respiratory: Reports: no symptoms Cardiovascular: Reports: no symptoms Gastrointestinal/Abdominal: Reports: constipation, bloating Genitourinary: Reports: no symptoms Allergies: Coded Allergies: No Known Allergies (Unverified , 02/15/20) Objective Last 24 Hour Vital Signs Date Time Temp Pulse Resp B/P (MAP) Pulse Ox O2 Delivery O2 Flow Rate FiO2 02/19/20 09:18 104 22 98 02/19/20 09:11 99 Nasal Cannula 2.0 28 02/19/20 09:00 97.5 112 23 105/71 (82) 100 02/19/20 08:00 111 21 111/75 (87) 100 02/19/20 08:00 113 02/19/20 07:00 103 20 105/69 (81) 100 02/19/20 06:00 106 22 101/65 (77) 100 02/19/20 05:00 103 18 98/66 (77) 100 02/19/20 04:00 98.0 104 25 102/66 (78) 100 02/19/20 04:00 108 02/19/20 03:00 94 17 95/65 (75) 100 02/19/20 02:00 93 20 96/62 (73) 100 02/19/20 01:00 95 20 90/55 (67) 100 02/19/20 00:00 97.6 96 18 104/68 (80) 100 02/19/20 00:00 Simple Mask 2.0 02/19/20 00:00 94 02/18/20 23:00 97 16 107/67 (80) 100 02/18/20 22:00 94 19 106/69 (81) 100 02/18/20 21:00 99 21 96/79 (85) 100 02/18/20 20:45 98 21 93/60 (71) 100 02/18/20 20:15 97 23 102/61 (75) 100 02/18/20 20:00 99 02/18/20 20:00 97.1 96 24 105/65 (78) 100 02/18/20 20:00 Simple Mask 2.0 02/18/20 19:45 95 24 104/66 (79) 100 02/18/20 19:30 97 24 102/67 (79) 100 02/18/20 19:20 97.4 92 24 95/65 100 Simple Mask 6 02/18/20 19:15 97.0 99 24 98/63 (75) 100 02/18/20 19:05 93 24 102/67 100 Simple Mask 6 02/18/20 18:50 92 25 104/66 100 Simple Mask 6 02/18/20 18:35 89 23 108/71 100 Simple Mask 6 02/18/20 18:25 90 25 107/75 100 Simple Mask 6 02/18/20 18:15 90 24 108/76 100 Simple Mask 6 02/18/20 18:05 91 24 106/77 100 Simple Mask 6 02/18/20 18:00 90 24 101/74 100 Simple Mask 6 02/18/20 17:55 91 24 95/60 100 Simple Mask 6 02/18/20 17:55 92 16 100 02/18/20 17:50 97.0 95 25 96/71 100 Simple Mask 6 02/18/20 12:00 97 Intake and Output 02/18/20 02/19/20 19:00 07:00 Intake Total 1500 ml 1923.3743 ml Output Total 350 ml 515 ml Balance 1150 ml 1408.3743 ml Intake IV Total 1500 ml 1923.3743 ml Output Urine Total 300 ml 515 ml Estimated Blood Loss 50 ml General Appearance: no acute distress HEENT: normocephalic Respiratory: chest wall non-tender, lungs clear Cardiovascular: normal peripheral pulses Abdomen: absent bowel sounds Laboratory Tests 02/19/20 04:45: White Blood Count 7.4, Red Blood Count 3.61L, Hemoglobin 10.4L, Hematocrit 31.4L , Mean Corpuscular Volume 87, Mean Corpuscular Hemoglobin 28.9, Mean Corpuscular Hemoglobin Concent 33.2, Red Cell Distribution Width 13.8, Platelet Count 138L, Mean Platelet Volume 6.9, Neutrophils (%) (Auto) 82.8H, Lymphocytes (%) (Auto) 12.1L, Monocytes (%) (Auto) 3.2, Eosinophils (%) (Auto) 0.0, Basophils (%) (Auto) 1.9, Sodium Level 145, Potassium Level 4.3, Chloride Level 108H, Carbon Dioxide Level 22, Anion Gap 15, Blood Urea Nitrogen 14, Creatinine 0.7, Estimat Glomerular Filtration Rate > 60, Glucose Level 134H, Calcium Level 6.5L, Total Bilirubin 0.9, Aspartate Amino Transf (AST/SGOT) 40H, Alanine Aminotransferase (ALT/SGPT) 23, Alkaline Phosphatase 36L, Total Protein 4.1L, Albumin 1.9L, Globulin 2.2, Albumin/Globulin Ratio 0.9L Current Medications Medications (Trade) Dose Ordered Sig/Fozia Route PRN Reason Start Time Stop Time Status Last Admin Dose Admin Acetaminophen (Tylenol) 650 mg Q6H PRN ORAL Mild Pain (Pain Scale 1-3) 02/18/20 17:15 03/19/20 17:14 Diphenhydramine HCl (Benadryl) 12.5 mg Q6H PRN IVP Itching/Pruritis 02/18/20 17:15 03/19/20 17:14 Morphine Sulfate (Morphine Sulfate) 1 mg Q4H PRN IVP pain scale 1-3 02/18/20 17:15 02/25/20 17:14 Morphine Sulfate (Morphine Sulfate) 2 mg Q4H PRN IVP pain scale 4-6 02/18/20 17:15 02/25/20 17:14 02/18/20 21:16 Morphine Sulfate (Morphine Sulfate) 4 mg Q4H PRN IVP pain score 7-10 02/18/20 17:15 02/25/20 17:14 Ondansetron HCl (Zofran) 4 mg Q6H PRN IVP Nausea & Vomiting 02/15/20 16:15 03/16/20 16:14 Ondansetron HCl (Zofran) 4 mg Q6H PRN IVP Nausea & Vomiting 02/18/20 17:15 03/19/20 17:14 Piperacillin Sod/ Tazobactam Sod 3.375 gm/Sodium Chloride 110 ml @ 27.5 mls/hr EVERY 8 HOURS IVPB 02/18/20 22:00 02/23/20 21:59 02/19/20 05:13 Potassium Chloride/Sodium Chloride 1,000 ml @ 100 mls/hr Q10H IV 02/15/20 18:00 03/16/20 17:59 02/19/20 05:13 Assessment/Plan Assessment/Plan IMPRESSION: 1. S/p laparotomy 2. Severe hypokalemia. Corrected 3. Hypertension. 4. Diuretic use. DISCUSSION: Replaced potassium. S/P laparotomy I will continue to follow carefully. ICU care Transfer out of ICU Hanna Cline Omar Syed MD Feb 19, 2020 11:59
--- NOTE | 2020-02-19 12:09 | NUR ---
PT SEEN BY [facility]UBBS /
[2020-02-19] MEDS ORDERED: NS 275ml ONE (14:16)
[2020-02-19] MEDS ORDERED: Tubing IV Secondary IV ONE (14:16)
--- NOTE | 2020-02-19 14:51 | Surgery Progress Note ---
Surgery Progress Note Subjective Procedure Performed ex lap left colectomy mobilization of splenic flexure omentectomy primary anastomosis Additional Comments doing well post op no n/v tachy labs okay states feels much better Objective Last 24 Hour Vital Signs Date Time Temp Pulse Resp B/P (MAP) Pulse Ox O2 Delivery O2 Flow Rate FiO2 02/19/20 14:00 98.2 120 28 115/71 (86) 100 02/19/20 13:00 113 25 115/69 (84) 100 02/19/20 12:05 115 02/19/20 12:02 115 22 112/71 (85) 100 02/19/20 11:00 115 20 109/70 (83) 100 02/19/20 10:00 112 21 113/73 (86) 100 02/19/20 09:18 104 22 98 02/19/20 09:11 99 Nasal Cannula 2.0 28 02/19/20 09:00 97.5 112 23 105/71 (82) 100 02/19/20 08:00 111 21 111/75 (87) 100 02/19/20 08:00 113 02/19/20 07:00 103 20 105/69 (81) 100 02/19/20 06:00 106 22 101/65 (77) 100 02/19/20 05:00 103 18 98/66 (77) 100 02/19/20 04:00 98.0 104 25 102/66 (78) 100 02/19/20 04:00 108 02/19/20 03:00 94 17 95/65 (75) 100 02/19/20 02:00 93 20 96/62 (73) 100 02/19/20 01:00 95 20 90/55 (67) 100 02/19/20 00:00 97.6 96 18 104/68 (80) 100 02/19/20 00:00 Simple Mask 2.0 02/19/20 00:00 94 02/18/20 23:00 97 16 107/67 (80) 100 02/18/20 22:00 94 19 106/69 (81) 100 02/18/20 21:00 99 21 96/79 (85) 100 02/18/20 20:45 98 21 93/60 (71) 100 02/18/20 20:15 97 23 102/61 (75) 100 02/18/20 20:00 99 02/18/20 20:00 97.1 96 24 105/65 (78) 100 02/18/20 20:00 Simple Mask 2.0 02/18/20 19:45 95 24 104/66 (79) 100 02/18/20 19:30 97 24 102/67 (79) 100 02/18/20 19:20 97.4 92 24 95/65 100 Simple Mask 6 02/18/20 19:15 97.0 99 24 98/63 (75) 100 02/18/20 19:05 93 24 102/67 100 Simple Mask 6 02/18/20 18:50 92 25 104/66 100 Simple Mask 6 02/18/20 18:35 89 23 108/71 100 Simple Mask 6 02/18/20 18:25 90 25 107/75 100 Simple Mask 6 02/18/20 18:15 90 24 108/76 100 Simple Mask 6 02/18/20 18:05 91 24 106/77 100 Simple Mask 6 02/18/20 18:00 90 24 101/74 100 Simple Mask 6 02/18/20 17:55 91 24 95/60 100 Simple Mask 6 02/18/20 17:55 92 16 100 02/18/20 17:50 97.0 95 25 96/71 100 Simple Mask 6 I&O Intake and Output 02/18/20 02/19/20 19:00 07:00 Intake Total 1500 ml 1923.3743 ml Output Total 350 ml 515 ml Balance 1150 ml 1408.3743 ml Intake IV Total 1500 ml 1923.3743 ml Output Urine Total 300 ml 515 ml Estimated Blood Loss 50 ml Dressing: dry Wound: clean Cardiovascular: RSR Respiratory: clear Abdomen: soft, non-tender, non-distended, decreased bowel sounds Extremities: no edema, no tenderness, no cyanosis Laboratory Tests Test 02/19/20 04:45 White Blood Count 7.4 K/UL (4.8-10.8) Red Blood Count 3.61 M/UL (4.20-5.40) L Hemoglobin 10.4 G/DL (12.0-16.0) L Hematocrit 31.4 % (37.0-47.0) L Mean Corpuscular Volume 87 FL (80-99) Mean Corpuscular Hemoglobin 28.9 PG (27.0-31.0) Mean Corpuscular Hemoglobin Concent 33.2 G/DL (32.0-36.0) Red Cell Distribution Width 13.8 % (11.6-14.8) Platelet Count 138 K/UL (150-450) L Mean Platelet Volume 6.9 FL (6.5-10.1) Neutrophils (%) (Auto) 82.8 % (45.0-75.0) H Lymphocytes (%) (Auto) 12.1 % (20.0-45.0) L Monocytes (%) (Auto) 3.2 % (1.0-10.0) Eosinophils (%) (Auto) 0.0 % (0.0-3.0) Basophils (%) (Auto) 1.9 % (0.0-2.0) Sodium Level 145 MMOL/L (136-145) Potassium Level 4.3 MMOL/L (3.5-5.1) Chloride Level 108 MMOL/L (98-107) H Carbon Dioxide Level 22 MMOL/L (21-32) Anion Gap 15 mmol/L (5-15) Blood Urea Nitrogen 14 mg/dL (7-18) Creatinine 0.7 MG/DL (0.55-1.30) Estimat Glomerular Filtration Rate > 60 mL/min (>60) Glucose Level 134 MG/DL (74-106) H Calcium Level 6.5 MG/DL (8.5-10.1) L Total Bilirubin 0.9 MG/DL (0.2-1.0) Aspartate Amino Transf (AST/SGOT) 40 U/L (15-37) H Alanine Aminotransferase (ALT/SGPT) 23 U/L (12-78) Alkaline Phosphatase 36 U/L (46-116) L Total Protein 4.1 G/DL (6.4-8.2) L Albumin 1.9 G/DL (3.4-5.0) L Globulin 2.2 g/dL Albumin/Globulin Ratio 0.9 (1.0-2.7) L Plan Problems: (1) Lightheaded (2) Hypokalemia (3) Large bowel obstruction Assessment & Plan: 64-year-old female with abdominal distention potential large bowel obstruction. Afebrile, hemodynamic stable, labs noted no leukocytosis no pain no bleeding. No prior abdominal surgeries. Nausea and emesis clear liquid. Decreased appetite. Cannot recall last flatus or BM. CT as below. No direct mass or abnormality identified but there is absolutely identifiable transition at the rectosigmoid area with proximal dilatation. A colonoscopy is warranted but though would be with definitive risk of potential perforation. GI consult pending. Replace electrolytes. N.p.o. IV fluids will await scope for findings. Conceivably may require surgical intervention. Thank you for let me participate in patient's care will follow with recommendations GI consider for scope 02/17 will be available for surgery in case of emergency high risk for perforation or complication and understands. but strongly recommend scope prior to surgery for etiology purposes. s/p ex lap. see op report recovering okay to downgrade to tele npo okay for ice chips iv fluids abx tomas to stay in until ambulatory heparin There are several circumscribed low-density nonenhancing cysts noted in the liver. The spleen is homogeneous. Gallbladder is without sludge or stone and there is no wall thickening. The pancreas is unremarkable. Adrenals are normal in morphology. The kidneys are normal in size, shape and axis. Small bowel loops are nondistended. The dominant abnormality is severe colonic distention containing air-fluid levels and stool debris. Dilated colon extends down to the rectosigmoid junction where there is an apparent transition. The rectal vault is nondistended with only a small amount of stool. No definite discernible mass is detected there is There is no free fluid or free air. No pathologic adenopathy demonstrated. Bladder is empty. There is no suspicious superficial soft tissue or osseous abnormality. IMPRESSION: SEVERE COLONIC DISTENTION WITH AIR-FLUID LEVELS AND STOOL DEBRIS. THERE IS APPARENT TRANSITION AT THE RECTOSIGMOID JUNCTION WITH A RELATIVELY EMPTY RECTAL VAULT WITH ONLY SMALL AMOUNT OF STOOL. NO DEFINITE DISCERNIBLE MASS AT THE TRANSITION POINT. RECOMMEND GI CONSULTATION AND CONSIDER COLONOSCOPY. Swapnil Brito Feb 19, 2020 14:51
--- NOTE | 2020-02-19 16:17 | NUR ---
NURSE NOTES: Received report from RYANN Reynolds. Patient AAO x4. ST 115 on monitor. Denies pain. Breathing unlabored, regular, no cyanosis. Skin warm, dry normal for ethnicity. ABD dressing dry and intact. ABD soft, distended, mild tenderness to touch per pt. No BM. Leiva draining clear, morena urine to gravity. Per MD Gail Benyamini states ok to give ice chips. IV infusing, patent, no redness or edema. Bed low and locked, call light in reach, remote in reach, side rails x2 raised. Incentive spirometer at bedside, instructed pt. on use. Belongings verified with RN and remain at bedside.
--- NOTE | 2020-02-19 17:02 | NUR ---
1600 PT,SEEN BY [facility] W ORDERS ABD,DRESSING DRY/INTACT ALSO SEEN BY CARDIOLOGY TRESSA STUBBS W/ ORDERS TRANSFER TO TELE DUE TO TACHYCARDIA W HR 112-115 AFEBRILE @1630 TX,D [id number] 2L/NC ENCOURAGED TO USE I/S TAKE DEEPBREATH/COUGH FOLLOWS WELL
--- NOTE | 2020-02-19 17:17 | NUR ---
HAND-OFF: Report given to MARCO PINEDA.
--- NOTE | 2020-02-19 19:33 | NUR ---
NURSE HAND-OFF REPORT: Important Events on Shift: Transfer from ICU post op Patient Status: Stable Diet: NPO Pending Orders: N/A Pending Results/Labs:N/A Pending MD notification:N/A Latest Vital Signs: Temperature 97.5 , Pulse 114 , B/P 100 /65 , Respiratory Rate 21 , O2 SAT 100 , Simple Mask, O2 Flow Rate 2.0 . Vital Sign Comment:N/A EKG Rhythm: Sinus Tachycardia Rhythm change?: N MD Notified?: N - MD Response: Latest Scherer Fall Score: 20 Fall Risk: Low Risk Safety Measures: Call light Within Reach, Bed Alarm Zone 1, Side Rails Side Rails x2, Bed position Low and Locked. Fall Precautions: Patient Fall Education Report given to RYANN Her.
--- NOTE | 2020-02-19 19:35 | NUR ---
NURSE NOTES: Received report from RYANN Cruz. Patient AAO x4. ST 114 on student services representative. Denies pain. Breathing unlabored, regular, no cyanosis, some shortness of breath and further tachycardia during position changes. Skin warm, dry. ABD dressing clean, dry and intact. ABD soft, slightly distended, mild tenderness to touch per pt. No BM. Leiva draining clear, yellow to light morena urine to gravity. IV infusing, patent, no redness or edema. Bed low and locked, call light in reach, remote within reach, side rails x2, bed alarm on, on bedrest at this time. Incentive spirometer at bedside, instructed pt. on use, pt was blowing into it and took coaching to instruct on use, will continue to encourage use. will continue to monitor pt
[2020-02-19] MEDS: Heparin 5000 units/ml inj SUBQ SCH (22:00)
[2020-02-20] VITALS: BP 115/71
[2020-02-20 04:00] VITALS: BP 114/70
[2020-02-20] MEDS: Heparin 5000 units/ml inj SUBQ SCH ×3 (06:00→21:53)
[2020-02-20] MEDS: Piperacillin/Tazobactam 3.375 GM in NS 110 ML IVPB SCH ×3 (06:05→21:56)
--- NOTE | 2020-02-20 06:43 | NUR ---
NURSE NOTES: Pt had very little urine output overnight, oliguric, A total of 225 ml in a 12 hour period. Urine is dark morena, cloudy and foul smelling
--- NOTE | 2020-02-20 07:11 | NUR ---
NURSE HAND-OFF REPORT: Important Events on Shift: - was 1st day postop, now second day postop very little urine output, oliguric with total 12 hour output at 225 ml or 18.75 ml/hour Patient Status: Stable Diet: NPO Pending Orders: cbc, bmp Pending Results/Labs: cbc, bmp EKG Rhythm: Sinus Tachycardia Rhythm change?: N Notified?: N - MD Response: Latest Scherer Fall Score: 20 Fall Risk: Low Risk Safety Measures: Call light Within Reach, Bed Alarm Zone 1, Side Rails Side Rails x2, Bed position Low and Locked. Fall Precautions: Patient Fall Education Report given to Liset Broderick RN
--- NOTE | 2020-02-20 07:15 | NUR ---
HAND-OFF: Report given to Liset Broderick RN.
--- NOTE | 2020-02-20 07:45 | NUR ---
NURSE NOTES: Received report from RYANN Gunderson. Pt awake, A/O x4, able to make needs known, denies any pain, no s/sx of acute distress. Pt on 2L NC. IV sites patent and asymptomatic, currently running antibiotics and IVF at goal. Leiva draining well. Bed on lowest position, call light within reach. Will continue plan of care. Addendum: 02/20/20 at 1134 by Liset Broderick RN Reinforced teaching regarding the use of IS. Abd dressing dry and intact.
[2020-02-20 08:00] VITALS: BP 109/69
[2020-02-20 08:08] LABS: HEMATOCRIT 27.8 % (37.0-47.0); HEMOGLOBIN 9.3 G/DL (12.0-16.0); MEAN CORPUSCULAR VOLUME 87 FL (80-99); PLATELET COUNT 131 K/UL (150-450); RED CELL DISTRIBUTION WIDTH 13.8 % (11.6-14.8); WHITE BLOOD COUNT 12.4 K/UL (4.8-10.8)
[2020-02-20 08:27] LABS: CALCIUM 7.3 MG/DL (8.5-10.1); POTASSIUM 4.6 MMOL/L (3.5-5.1)
--- NOTE | 2020-02-20 08:56 | General Progress Note ---
Subjective ROS Limited/Unobtainable: No Allergies: Coded Allergies: No Known Allergies (Unverified , 02/15/20) Objective Last 24 Hour Vital Signs Date Time Temp Pulse Resp B/P (MAP) Pulse Ox O2 Delivery O2 Flow Rate FiO2 02/20/20 08:00 98.7 109 20 109/69 (82) 97 02/20/20 07:47 120 02/20/20 04:00 96.9 116 24 114/70 (85) 97 02/20/20 04:00 120 02/20/20 01:52 Nasal Cannula 2.0 02/20/20 00:00 97.9 116 24 115/71 (86) 98 02/20/20 00:00 118 02/19/20 21:00 Nasal Cannula 2.0 02/19/20 20:00 96.8 116 21 113/75 (88) 98 02/19/20 20:00 114 02/19/20 19:35 99 Nasal Cannula 2.0 28 02/19/20 16:27 114 02/19/20 16:17 97.5 114 21 100/65 (77) 100 02/19/20 16:00 116 02/19/20 16:00 115 22 116/71 (86) 100 02/19/20 15:00 117 22 117/72 (87) 100 02/19/20 14:00 98.2 120 28 115/71 (86) 100 02/19/20 13:00 113 25 115/69 (84) 100 02/19/20 12:05 115 02/19/20 12:02 115 22 112/71 (85) 100 02/19/20 11:00 115 20 109/70 (83) 100 02/19/20 10:00 112 21 113/73 (86) 100 02/19/20 09:18 104 22 98 02/19/20 09:11 99 Nasal Cannula 2.0 28 02/19/20 09:00 97.5 112 23 105/71 (82) 100 Intake and Output 02/19/20 02/20/20 19:00 07:00 Intake Total 955.0 ml Output Total 265 ml 225 ml Balance 690.0 ml -225 ml Intake IV Total 955.0 ml Output Urine Total 265 ml 225 ml Laboratory Tests 02/20/20 06:20: White Blood Count 12.4#H, Red Blood Count 3.20L, Hemoglobin 9.3L, Hematocrit 27.8L, Mean Corpuscular Volume 87, Mean Corpuscular Hemoglobin 28.9, Mean Corpuscular Hemoglobin Concent 33.3, Red Cell Distribution Width 13.8, Platelet Count 131L, Mean Platelet Volume 7.7, Neutrophils (%) (Auto) , Lymphocytes (%) (Auto) , Monocytes (%) (Auto) , Eosinophils (%) (Auto) , Basophils (%) (Auto) , Neutrophils % (Manual) [Pending], Lymphocytes % (Manual) [Pending], Platelet Estimate [Pending], Platelet Morphology [Pending], Sodium Level 149H, Potassium Level 4.6, Chloride Level 114H, Carbon Dioxide Level 23, Anion Gap 12, Blood Urea Nitrogen 18, Creatinine 1.0, Estimat Glomerular Filtration Rate 55.5, G lucose Level 71L, Calcium Level 7.3L Height (Feet): 5 Height (Inches): 4.00 Weight (Pounds): 113 General Appearance: mild distress Neck: supple Cardiovascular: normal rate Respiratory/Chest: decreased breath sounds Abdomen: other - post surgical Extremities: non-tender Assessment/Plan Problem List: (1) Large bowel obstruction ICD Codes: K56.609 - Unspecified intestinal obstruction, unspecified as to partial versus complete obstruction SNOMED: 607751543 (2) Hypokalemia ICD Codes: E87.6 - Hypokalemia SNOMED: 23276095 (3) Lightheaded ICD Codes: R42 - Dizziness and giddiness SNOMED: 179810915 Status: stable Assessment/Plan: colon cancer with bowel obstruction s/p resection POD #2 fi surg recs Graeme Hirsch MD Feb 20, 2020 08:56
--- NOTE | 2020-02-20 09:00 | NUR ---
NURSE NOTES: Reported electrolytes to Dr Arnett. ordered to change the IVF to 1/2 NS w/ 20 KCL @ 75cc/hr.
[2020-02-20] MEDS ORDERED: 1/2NS w/KCl 20mEq 1000ml 1,000 ML IV SCH (09:30)
--- NOTE | 2020-02-20 10:25 | NUR ---
NURSE NOTES: Reported to Dr Reyes that pt is sustaining HR of high 120s-130. No new orders. Addendum: 02/20/20 at 1109 by Liset Broderick RN Also, made aware that pt is complaining of severe dizziness. Per , he will come to do rounds later today.
--- NOTE | 2020-02-20 11:24 | Pulmonology Progress Note ---
Subjective ROS Limited/Unobtainable: No Interval Events: S/p colectomy Constitutional: Reports: no symptoms HEENT: Repors: no symptoms Respiratory: Reports: no symptoms Cardiovascular: Reports: no symptoms Gastrointestinal/Abdominal: Reports: constipation, bloating Genitourinary: Reports: no symptoms Allergies: Coded Allergies: No Known Allergies (Unverified , 02/15/20) Objective Last 24 Hour Vital Signs Date Time Temp Pulse Resp B/P (MAP) Pulse Ox O2 Delivery O2 Flow Rate FiO2 02/20/20 09:00 Nasal Cannula 2.0 02/20/20 08:00 98.7 109 20 109/69 (82) 97 02/20/20 07:47 120 02/20/20 04:00 96.9 116 24 114/70 (85) 97 02/20/20 04:00 120 02/20/20 01:52 Nasal Cannula 2.0 02/20/20 00:00 97.9 116 24 115/71 (86) 98 02/20/20 00:00 118 02/19/20 21:00 Nasal Cannula 2.0 02/19/20 20:00 96.8 116 21 113/75 (88) 98 02/19/20 20:00 114 02/19/20 19:35 99 Nasal Cannula 2.0 28 02/19/20 16:27 114 02/19/20 16:17 97.5 114 21 100/65 (77) 100 02/19/20 16:00 116 02/19/20 16:00 115 22 116/71 (86) 100 02/19/20 15:00 117 22 117/72 (87) 100 02/19/20 14:00 98.2 120 28 115/71 (86) 100 02/19/20 13:00 113 25 115/69 (84) 100 02/19/20 12:05 115 02/19/20 12:02 115 22 112/71 (85) 100 Intake and Output 02/19/20 02/20/20 19:00 07:00 Intake Total 955.0 ml Output Total 265 ml 225 ml Balance 690.0 ml -225 ml Intake IV Total 955.0 ml Output Urine Total 265 ml 225 ml General Appearance: no acute distress HEENT: normocephalic Respiratory: chest wall non-tender, lungs clear Cardiovascular: normal peripheral pulses Abdomen: absent bowel sounds Laboratory Tests 02/20/20 06:20: White Blood Count 12.4#H, Red Blood Count 3.20L, Hemoglobin 9.3L, Hematocrit 27.8L, Mean Corpuscular Volume 87, Mean Corpuscular Hemoglobin 28.9, Mean Corpuscular Hemoglobin Concent 33.3, Red Cell Distribution Width 13.8, Platelet Count 131L, Mean Platelet Volume 7.7, Neutrophils (%) (Auto) , Lymphocytes (%) (Auto) , Monocytes (%) (Auto) , Eosinophils (%) (Auto) , Basophils (%) (Auto) , Differential Total Cells Counted 100, Neutrophils % (Manual) 90H, Lymphocytes % (Manual) 8L, Monocytes % (Manual) 2, Eosinophils % (Manual) 0, Basophils % (Manual) 0, Band Neutrophils 0, Platelet Estimate DecreasedL, Platelet Morphology Normal, Hypochromasia 1+, Sodium Level 149H, Potassium Level 4.6, Chloride Level 114H, Carbon Dioxide Level 23, Anion Gap 12, Blood Urea Nitrogen 18, Creatinine 1.0, Estimat Glomerular Filtration Rate 55.5, Glucose Level 71L, Calcium Level 7.3L Current Medications Medications (Trade) Dose Ordered Sig/Fozia Route PRN Reason Start Time Stop Time Status Last Admin Dose Admin Acetaminophen (Tylenol) 650 mg Q6H PRN ORAL Mild Pain (Pain Scale 1-3) 02/18/20 17:15 03/19/20 17:14 Diphenhydramine HCl (Benadryl) 12.5 mg Q6H PRN IVP Itching/Pruritis 02/18/20 17:15 03/19/20 17:14 Heparin Sodium (Porcine) (Heparin 5000 units/ml) 5,000 units EVERY 8 HOURS SUBQ 02/19/20 22:00 04/04/20 21:59 Morphine Sulfate (Morphine Sulfate) 1 mg Q4H PRN IVP pain scale 1-3 02/18/20 17:15 02/25/20 17:14 Morphine Sulfate (Morphine Sulfate) 2 mg Q4H PRN IVP pain scale 4-6 02/18/20 17:15 02/25/20 17:14 02/18/20 21:16 Morphine Sulfate (Morphine Sulfate) 4 mg Q4H PRN IVP pain score 7-10 02/18/20 17:15 02/25/20 17:14 Ondansetron HCl (Zofran) 4 mg Q6H PRN IVP Nausea & Vomiting 02/15/20 16:15 03/16/20 16:14 Ondansetron HCl (Zofran) 4 mg Q6H PRN IVP Nausea & Vomiting 02/18/20 17:15 03/19/20 17:14 Piperacillin Sod/ Tazobactam Sod 3.375 gm/Sodium Chloride 110 ml @ 27.5 mls/hr EVERY 8 HOURS IVPB 02/18/20 22:00 02/23/20 21:59 02/20/20 06:05 Sodium 1,000 ml @ 75 mls/hr [id number] IV 02/20/20 09:30 03/21/20 09:29 02/20/20 09:51 Assessment/Plan Assessment/Plan IMPRESSION: 1. S/p laparotomy 2. Severe hypokalemia. Corrected 3. Hypertension. 4. Diuretic use. DISCUSSION: Replaced potassium. S/P laparotomy I will continue to follow carefully. Complaining of dizziness x 3 days Will monitor; doubt if it is severe Await return of bowel fxn Hanna Cline Omar Syed MD Feb 20, 2020 11:24
--- NOTE | 2020-02-20 11:32 | NUR ---
NURSE NOTES: Dr Zacarias came to bedside. Pt reported severe dizziness to him. MD also made aware of WBC 12.4
[2020-02-20 12:00] VITALS: BP 117/77
[2020-02-20] MEDS: Dextrose 5%/Lactated Ringer's 1,000 ML IV SCH (15:44)
[2020-02-20 16:00] VITALS: BP 116/74
--- NOTE | 2020-02-20 19:28 | NUR ---
NURSE NOTES: Received report from RYANN Hutchins. Patient is awake on bed, alert and oriented x 4. personnel monitor is in place, shows sinus tachycardia with no chest pain reported. With oxygen via nasal cannula @ 2Lpm, with no shortness of breath reported, sating 98%. With Leiva catheter, f-16, drained via gravity. IV site on left suresh g-20, IV fluid of D5LR 1L @ 100cc/hour, and IV site on right hand g-22 saline lock that is patent and intact. Safety measures are in place, bed in lowest and locked position, side rails up x 2. Call light button and bedside table within reach, instructed to call for any assistance needed. Will continue plan of care.
--- NOTE | 2020-02-20 19:29 | NUR ---
NURSE HAND-OFF REPORT: Important Events on Shift: New IVF ordered. Pt has been sustaining high 120s-130 in the afternoon, Dr Reyes aware. Pls refer to previous NURSE NOTES. Pt was complaining of severe dizziness in AM, MDs made aware. No complains in the afternoon. Patient Status: stable Diet: NPO except ice chips Pending Orders: labs and CXR tomorrow Pending Results/Labs: Pending MD notification: Latest Vital Signs: Temperature 96.8 , Pulse 121 , B/P 116 /74 , Respiratory Rate 22 , O2 SAT 96 , Nasal Cannula, O2 Flow Rate 2.0 . Vital Sign Comment: EKG Rhythm: Sinus Tachycardia Rhythm change?: N MD Notified?: N - MD Response: Latest Scherer Fall Score: 20 Fall Risk: Low Risk Safety Measures: Call light Within Reach, Bed Alarm Zone 1, Side Rails Side Rails x2, Bed position Low and Locked. Fall Precautions: Patient Fall Education Report given to RYANN Vidales
[2020-02-20 20:00] VITALS: BP 109/66
[2020-02-20] MEDS ORDERED: Meclizine 25mg tab ORAL PRN (20:30)
--- NOTE | 2020-02-20 20:30 | NUR ---
NURSE NOTES: Patient complaints of dizziness, and states that she's been dizzy for 2 days already but it's on and off and wasn't able identify what triggers on it since she's on bedrest for a couple of days. Inform Dr. Reyes and received an order, will carry out.
[2020-02-20] MEDS ORDERED: Promethazine HCl 50 MG in NS 110 ML IVPB PRN (20:45)
--- NOTE | 2020-02-20 21:00 | NUR ---
NURSE NOTES: Verified to Dr. Brito regarding patient's NPO status. Received an order, will carry out.
[2020-02-21] VITALS: BP 112/69
[2020-02-21] MEDS: Dextrose 5%/Lactated Ringer's 1,000 ML IV SCH ×3 (01:18→21:29)
[2020-02-21 04:00] VITALS: BP 117/68
[2020-02-21] MEDS: Piperacillin/Tazobactam 3.375 GM in NS 110 ML IVPB SCH ×3 (05:47→22:00)
[2020-02-21] MEDS: Heparin 5000 units/ml inj SUBQ SCH ×3 (05:47→22:00)
--- NOTE | 2020-02-21 07:10 | NUR ---
NURSE NOTES received report from RYANN Souza. Pt AOx4, resting in bed and stable. Pt IV on R hand 20g SL. asymptomatic and intact. RFA 20g running D5LR at 100cc. asymptomatic and intact. Bed low and locked, call light in reach and bed alarm on. NPO except ice chips. ABD dressing intact. biltateral upper and lower bruising noted.
--- NOTE | 2020-02-21 07:23 | NUR ---
NURSE HAND-OFF REPORT: Important Events on Shift: Patient was dizzy yesterday, gave phenergan IV. Patient Status: Patient is awake on bed, in stable condition. Plan of care endorsed. Diet: NPO except ice chips Pending Orders: none Pending Results/Labs:none Pending MD notification:none Latest Vital Signs: Temperature 100.0 , Pulse 118 , B/P 117 /68 , Respiratory Rate 20 , O2 SAT 96 , Nasal Cannula, O2 Flow Rate 2.0 . Vital Sign Comment: stable EKG Rhythm: Sinus Tachycardia Rhythm change?: N MD Notified?: N - MD Response: Latest Scherer Fall Score: 20 Fall Risk: Low Risk Safety Measures: Call light Within Reach, Bed Alarm Zone 1, Side Rails Side Rails x2, Bed position Low and Locked. Fall Precautions: Patient Fall Education Report given to RAYNN Benitez.
[2020-02-21 08:00] VITALS: BP 134/71
--- NOTE | 2020-02-21 08:29 | Surgery Progress Note ---
Surgery Progress Note Subjective Procedure Performed ex lap left colectomy mobilization of splenic flexure omentectomy primary anastomosis Additional Comments states feels well low grade fevers 100 t no n/v hungry and thirsty petechia noted. heparin held scds Objective Last 24 Hour Vital Signs Date Time Temp Pulse Resp B/P (MAP) Pulse Ox O2 Delivery O2 Flow Rate FiO2 02/21/20 04:00 120 02/21/20 04:00 100.0 118 20 117/68 (84) 96 02/21/20 00:00 98.1 117 18 112/69 (83) 96 02/21/20 00:00 116 02/20/20 21:00 Nasal Cannula 2.0 02/20/20 20:00 98.1 114 18 109/66 (80) 98 02/20/20 20:00 114 02/20/20 16:00 96.8 121 22 116/74 (88) 96 02/20/20 15:41 123 02/20/20 12:00 97.9 124 20 117/77 (90) 97 02/20/20 11:28 142 02/20/20 09:00 Nasal Cannula 2.0 I&O Intake and Output 02/20/20 02/21/20 19:00 07:00 Intake Total 100 ml 600 ml Output Total 185 ml 265 ml Balance -85 ml 335 ml Intake IV Total 100 ml 600 ml Output Urine Total 185 ml 265 ml Dressing: dry Wound: clean, dry, intact Cardiovascular: RSR Respiratory: clear Abdomen: soft, non-tender, decreased bowel sounds Extremities: no edema, no tenderness, no cyanosis, pulses, other Plan Problems: (1) Lightheaded (2) Hypokalemia (3) Large bowel obstruction Assessment & Plan: 64-year-old female with abdominal distention potential large bowel obstruction. Afebrile, hemodynamic stable, labs noted no leukocytosis no pain no bleeding. No prior abdominal surgeries. Nausea and emesis clear liquid. Decreased appetite. Cannot recall last flatus or BM. CT as below. No direct mass or abnormality identified but there is absolutely identifiable t ransition at the rectosigmoid area with proximal dilatation. A colonoscopy is warranted but though would be with definitive risk of potential perforation. GI consult pending. Replace electrolytes. N.p.o. IV fluids will await scope for findings. Conceivably may require surgical intervention. Thank you for let me participate in patient's care will follow with recommendations GI consider for scope 02/17 will be available for surgery in case of emergency high risk for perforation or complication and understands. but strongly recommend scope prior to surgery for etiology purposes. s/p ex lap. see op report recovering okay to downgrade to tele npo okay for ice chips iv fluids abx tomas to stay in until ambulatory heparin petechia plt down hold heparin scds cont abx trend labs There are several circumscribed low-density nonenhancing cysts noted in the liver. The spleen is homogeneous. Gallbladder is without sludge or stone and there is no wall thickening. The pancreas is unremarkable. Adrenals are normal in morphology. The kidneys are normal in size, shape and axis. Small bowel loops are nondistended. The dominant abnormality is severe colonic distention containing air-fluid levels and stool debris. Dilated colon extends down to the rectosigmoid junction where there is an apparent transition. The rectal vault is nondistended with only a small amount of stool. No definite discernible mass is detected there is There is no free fluid or free air. No pathologic adenopathy demonstrated. Bladder is empty. There is no suspicious superficial soft tissue or osseous abnormality. IMPRESSION: SEVERE COLONIC DISTENTION WITH AIR-FLUID LEVELS AND STOOL DEBRIS. THERE IS APPARENT TRANSITION AT THE RECTOSIGMOID JUNCTION WITH A RELATIVELY EMPTY RECTAL VAULT WITH ONLY SMALL AMOUNT OF STOOL. NO DEFINITE DISCERNIBLE MASS AT THE TRANSITION POINT. RECOMMEND GI CONSULTATION AND CONSIDER COLONOSCOPY. Swapnil Brito Feb 21, 2020 08:29
--- NOTE | 2020-02-21 08:47 | Nephrology Progress Note ---
Assessment/Plan Plan #Severe hypokalemia #Abdominal distention - bowel obstruction due to colonic mass #htn #Dehydration #HLD - s/p resection POD #2 - labs pending today - IVF - replete K, mag and phos - NPO - monitor lytes - avoid nephrotoxins - gen surg eval Subjective ROS Limited/Unobtainable: No Constitutional: Reports: weakness HEENT: Denies: no symptoms, eye pain, blurred vision, tearing, double vision, ear pain, ear discharge, nose pain, nose congestion, throat pain, throat swelling, mouth pain, mouth swelling, other Genitourinary: Denies: no symptoms, burning, discharge, frequency, flank pain, hematuria, incontinence, pain, urgency, other Neurologic/Psychiatric: Denies: no symptoms, anxiety, depressed, emotional problems, headache, numbness, paresthesia, pre-existing deficit, seizure, tingling, tremors, weakness, other Subjective s/p resection POD #2 labs pending Objective Objective Last 24 Hour Vital Signs Date Time Temp Pulse Resp B/P (MAP) Pulse Ox O2 Delivery O2 Flow Rate FiO2 02/21/20 04:00 120 02/21/20 04:00 100.0 118 20 117/68 (84) 96 02/21/20 00:00 98.1 117 18 112/69 (83) 96 02/21/20 00:00 116 02/20/20 21:00 Nasal Cannula 2.0 02/20/20 20:00 98.1 114 18 109/66 (80) 98 02/20/20 20:00 114 02/20/20 16:00 96.8 121 22 116/74 (88) 96 02/20/20 15:41 123 02/20/20 12:00 97.9 124 20 117/77 (90) 97 02/20/20 11:28 142 02/20/20 09:00 Nasal Cannula 2.0 Intake and Output 02/20/20 02/21/20 19:00 07:00 Intake Total 100 ml 600 ml Output Total 185 ml 265 ml Balance -85 ml 335 ml Intake IV Total 100 ml 600 ml Output Urine Total 185 ml 265 ml Height (Feet): 5 Height (Inches): 4.00 Weight (Pounds): 113 Yakelin Arnett M.D. Feb 21, 2020 08:47
[2020-02-21 09:04] LABS: HEMATOCRIT 24.5 % (37.0-47.0); MEAN CORPUSCULAR VOLUME 86 FL (80-99); PLATELET COUNT 124 K/UL (150-450); RED BLOOD COUNT 2.84 M/UL (4.20-5.40); RED CELL DISTRIBUTION WIDTH 14.3 % (11.6-14.8); WHITE BLOOD COUNT 12.3 K/UL (4.8-10.8)
[2020-02-21 09:17] LABS: ANION GAP 11 mmol/L (5-15); BLOOD UREA NITROGEN 16 mg/dL (7-18); CALCIUM 7.5 MG/DL (8.5-10.1); CARBON DIOXIDE 24 MMOL/L (21-32); CHLORIDE 115 MMOL/L (98-107); CREATININE 0.8 MG/DL (0.55-1.30); POTASSIUM 3.4 MMOL/L (3.5-5.1); SODIUM 150 MMOL/L (136-145)
--- NOTE | 2020-02-21 09:44 | General Progress Note ---
Subjective ROS Limited/Unobtainable: No Allergies: Coded Allergies: No Known Allergies (Unverified , 02/15/20) Objective Last 24 Hour Vital Signs Date Time Temp Pulse Resp B/P (MAP) Pulse Ox O2 Delivery O2 Flow Rate FiO2 02/21/20 04:00 120 02/21/20 04:00 100.0 118 20 117/68 (84) 96 02/21/20 00:00 98.1 117 18 112/69 (83) 96 02/21/20 00:00 116 02/20/20 21:00 Nasal Cannula 2.0 02/20/20 20:00 98.1 114 18 109/66 (80) 98 02/20/20 20:00 114 02/20/20 16:00 96.8 121 22 116/74 (88) 96 02/20/20 15:41 123 02/20/20 12:00 97.9 124 20 117/77 (90) 97 02/20/20 11:28 142 Intake and Output 02/20/20 02/21/20 19:00 07:00 Intake Total 100 ml 600 ml Output Total 185 ml 265 ml Balance -85 ml 335 ml Intake IV Total 100 ml 600 ml Output Urine Total 185 ml 265 ml Laboratory Tests 02/21/20 08:20: White Blood Count 12.3H, Red Blood Count 2.84L, Hemoglobin 8.0L, Hematocrit 24.5L, Mean Corpuscular Volume 86, Mean Corpuscular Hemoglobin 28.2, Mean Corpuscular Hemoglobin Concent 32.8, Red Cell Distribution Width 14.3, Platelet Count 124L, Mean Platelet Volume 7.2, Neutrophils (%) (Auto) , Lymphocytes (%) (Auto) , Monocytes (%) (Auto) , Eosinophils (%) (Auto) , Basophils (%) (Auto) , Neutrophils % (Manual) [Pending], Lymphocytes % (Manual) [Pending], Platelet Estimate [Pending], Platelet Morphology [Pending], Erythrocyte Sedimentation Ra te [Pending], Sodium Level 150H, Potassium Level 3.4L, Chloride Level 115H, Carbon Dioxide Level 24, Anion Gap 11, Blood Urea Nitrogen 16, Creatinine 0.8, Estimat Glomerular Filtration Rate > 60, Glucose Level 144H, Calcium Level 7.5L, Phosphorus Level 1.4L, Magnesium Level 1.5L, C-Reactive Protein, Quantitative 46.3H, Amylase Level 19L, Lipase 56L Height (Feet): 5 Height (Inches): 4.00 Weight (Pounds): 113 General Appearance: no apparent distress EENT: normal ENT inspection Neck: supple Cardiovascular: normal rate Respiratory/Chest: decreased breath sounds Abdomen: other - post surgical Extremities: non-tender Assessment/Plan Problem List: (1) Large bowel obstruction ICD Codes: K56.609 - Unspecified intestinal obstruction, unspecified as to partial versus complete obstruction SNOMED: 129097003 (2) Hypokalemia ICD Codes: E87.6 - Hypokalemia SNOMED: 44087216 (3) Lightheaded ICD Codes: R42 - Dizziness and giddiness SNOMED: 362430829 Status: stable Assessment/Plan: colon cancer with bowel obstruction s/p resection POD #3 fi surg recs Graeme Hirsch MD Feb 21, 2020 09:44
[2020-02-21] MEDS ORDERED: Tubing IV Secondary IV ONE (09:59)
[2020-02-21] MEDS ORDERED: NS 275ml ONE (09:59)
--- NOTE | 2020-02-21 10:00 | NUR ---
PT EVALUATION NOTE Patient seen for initial evaluation and treatment initiated. Patient presents with generalized weakness s/p abdominal surgery. Patient requires min/mod assist for bed mobility. Patient declined transfers OOB due to c/o fatigue and dizziness. Patient will benefit from skilled inpatient PT intervention to increase strength and postural stability for improved level of functional mobility and safety. Recommend discharge to SNF for continued rehab once medically cleared by MD. Patient may benefit from use of FWW for ambulation depending on patient's progress. Addendum: 02/21/20 at 1230 by WILLIAM LO PT Amended: Links added.
--- NOTE | 2020-02-21 10:22 | Cardiology Progress Note ---
Assessment/Plan Status: stable Assessment/Plan Assessment Palpitations Constipation Abdominal distension PVCs dizziness Plan: CV status stable Heparin DVT Pain control Incentive spirometry CV status stable, will sign off at this juncture DR. Quintana to resume care tomorrow Subjective Subjective No acute events, POD3 no bleeding pain controlled Objective Last 24 Hour Vital Signs Date Time Temp Pulse Resp B/P (MAP) Pulse Ox O2 Delivery O2 Flow Rate FiO2 02/21/20 09:00 Nasal Cannula 2.0 02/21/20 08:00 124 02/21/20 08:00 98.4 125 20 134/71 (92) 96 02/21/20 04:00 120 02/21/20 04:00 100.0 118 20 117/68 (84) 96 02/21/20 00:00 98.1 117 18 112/69 (83) 96 02/21/20 00:00 116 02/20/20 21:00 Nasal Cannula 2.0 02/20/20 20:00 98.1 114 18 109/66 (80) 98 02/20/20 20:00 114 02/20/20 16:00 96.8 121 22 116/74 (88) 96 02/20/20 15:41 123 02/20/20 12:00 97.9 124 20 117/77 (90) 97 02/20/20 11:28 142 General Appearance: no apparent distress, alert EENT: PERRL/EOMI, normal ENT inspection, TMs normal, pharynx normal Neck: non-tender, normal alignment, supple Rhythm: NSR Cardiovascular: normal peripheral pulses, normal rate, regular rhythm Respiratory/Chest: chest wall non-tender, lungs clear, normal breath sounds Abdomen: normal bowel sounds, non tender, soft, no organomegaly, no mass Extremities: normal range of motion, non-tender, normal inspection, no calf tenderness, no swelling 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, no motor/sensory deficits Intake and Output 02/20/20 02/21/20 19:00 07:00 Intake Total 100 ml 600 ml Output Total 185 ml 265 ml Balance -85 ml 335 ml Intake IV Total 100 ml 600 ml Output Urine Total 185 ml 265 ml Laboratory Tests Test 02/21/20 08:20 White Blood Count 12.3 K/UL (4.8-10.8) H Red Blood Count 2.84 M/UL (4.20-5.40) L Hemoglobin 8.0 G/DL (12.0-16.0) L Hematocrit 24.5 % (37.0-47.0) L Mean Corpuscular Volume 86 FL (80-99) Mean Corpuscular Hemoglobin 28.2 PG (27.0-31.0) Mean Corpuscular Hemoglobin Concent 32.8 G/DL (32.0-36.0) Red Cell Distribution Width 14.3 % (11.6-14.8) Platelet Count 124 K/UL (150-450) L Mean Platelet Volume 7.2 FL (6.5-10.1) Neutrophils (%) (Auto) % (45.0-75.0) Lymphocytes (%) (Auto) % (20.0-45.0) Monocytes (%) (Auto) % (1.0-10.0) Eosinophils (%) (Auto) % (0.0-3.0) Basophils (%) (Auto) % (0.0-2.0) Neutrophils % (Manual) Pending Lymphocytes % (Manual) Pending Platelet Estimate Pending Platelet Morphology Pending Erythrocyte Sedimentation Rate Pending Sodium Level 150 MMOL/L (136-145) H Potassium Level 3.4 MMOL/L (3.5-5.1) L Chloride Level 115 MMOL/L (98-107) H Carbon Dioxide Level 24 MMOL/L (21-32) Anion Gap 11 mmol/L (5-15) Blood Urea Nitrogen 16 mg/dL (7-18) Creatinine 0.8 MG/DL (0.55-1.30) Estimat Glomerular Filtration Rate > 60 mL/min (>60) Glucose Level 144 MG/DL (74-106) H Calcium Level 7.5 MG/DL (8.5-10.1) L Phosphorus Level 1.4 MG/DL (2.5-4.9) L Magnesium Level 1.5 MG/DL (1.8-2.4) L C-Reactive Protein, Quantitative 46.3 mg/dL (0.00-0.90) H Amylase Level 19 U/L (25-115) L Lipase 56 U/L (73-393) L Roby Reyes MD Feb 21, 2020 10:22
--- NOTE | 2020-02-21 10:59 | NUR ---
RADIOLOGY DEPT., CHEST X-RAY DONE.-P.DYE
[2020-02-21 12:00] VITALS: BP 131/75
--- NOTE | 2020-02-21 12:47 | NUR ---
NURSE NOTES: Pt had 5 beats of vtach, unsustained, pt unsymptomatic. Md Reyes notified. Will continue to monitor. no new orders.
--- NOTE | 2020-02-21 12:52 | NUR ---
CASE MANAGEMENT:REVIEW 02/21/20 SI: POD #3 S/P LEFT COLECTOMY. OMENTECTOMY 100.0 120 20 117/68 96% ON 2L/NC WBC+12.3 H/H-8.0/24.5 PLT-124 NA+150 GLUCOSE+144 CA-7.5 PHOS-1.4 MAG-1.5 IS: IV FLAGYL Q8HRS IV ZOSYN Q8HRS IVF@100/HR HEPARIN SQ Q8HRS NPO : TELEMETRY STATUS PLAN: PT VIKAS
--- NOTE | 2020-02-21 13:23 | Pulmonology Progress Note ---
Subjective ROS Limited/Unobtainable: No Interval Events: S/p colectomy Constitutional: Reports: no symptoms HEENT: Repors: no symptoms Respiratory: Reports: no symptoms Cardiovascular: Reports: no symptoms Gastrointestinal/Abdominal: Reports: constipation, bloating Genitourinary: Reports: no symptoms Allergies: Coded Allergies: No Known Allergies (Unverified , 02/15/20) Objective Last 24 Hour Vital Signs Date Time Temp Pulse Resp B/P (MAP) Pulse Ox O2 Delivery O2 Flow Rate FiO2 02/21/20 12:00 122 02/21/20 12:00 98.6 119 20 131/75 (93) 95 02/21/20 09:00 Nasal Cannula 2.0 02/21/20 08:00 124 02/21/20 08:00 98.4 125 20 134/71 (92) 96 02/21/20 04:00 120 02/21/20 04:00 100.0 118 20 117/68 (84) 96 02/21/20 00:00 98.1 117 18 112/69 (83) 96 02/21/20 00:00 116 02/20/20 21:00 Nasal Cannula 2.0 02/20/20 20:00 98.1 114 18 109/66 (80) 98 02/20/20 20:00 114 02/20/20 16:00 96.8 121 22 116/74 (88) 96 02/20/20 15:41 123 Intake and Output 02/20/20 02/21/20 19:00 07:00 Intake Total 100 ml 600 ml Output Total 185 ml 265 ml Balance -85 ml 335 ml Intake IV Total 100 ml 600 ml Output Urine Total 185 ml 265 ml General Appearance: no acute distress HEENT: normocephalic Respiratory: chest wall non-tender, lungs clear Cardiovascular: normal peripheral pulses Abdomen: absent bowel sounds Laboratory Tests 02/21/20 08:20: White Blood Count 12.3H, Red Blood Count 2.84L, Hemoglobin 8.0L, Hematocrit 24.5L, Mean Corpuscular Volume 86, Mean Corpuscular Hemoglobin 28.2, Mean Corpuscular Hemoglobin Concent 32.8, Red Cell Distribution Width 14.3, Platelet Count 124L, Mean Platelet Volume 7.2, Neutrophils (%) (Auto) , Lymphocytes (%) (Auto) , Monocytes (%) (Auto) , Eosinophils (%) (Auto) , Basophils (%) (Auto) , Differential Total Cells Counted 100, Neutrophils % (Manual) 88H, Lymphocytes % (Manual) 7L, Monocytes % (Manual) 1, Eosinophils % (Manual) 0, Basophils % (Manual) 0, Band Neutrophils 4, Platelet Estimate DecreasedL, Platelet Morphology Normal, Hypochromasia 1+, Anisocytosis 1+, Erythrocyte Sedimentation Rate 59H, Sodium Level 150H, Potassium Level 3.4L, Chloride Level 115H, Carbon Dioxide Level 24, Anion Gap 11, Blood Urea Nitrogen 16, Creatinine 0.8, Estimat Glomerular Filtration Rate > 60, Glucose Level 144H, Calcium Level 7.5L, Phosphorus Level 1.4L, Magnesium Level 1.5L, C-Reactive Protein, Quantitative 46.3H, Amylase Level 19L, Lipase 56L Current Medications Medications (Trade) Dose Ordered Sig/Fozia Route PRN Reason Start Time Stop Time Status Last Admin Dose Admin Acetaminophen (Tylenol) 650 mg Q6H PRN ORAL Mild Pain (Pain Scale 1-3) 02/18/20 17:15 03/19/20 17:14 Dextrose/Lactated Ringer's 1,000 ml @ 100 mls/hr Q10H IV 02/20/20 14:30 03/21/20 14:29 02/21/20 10:26 Diphenhydramine HCl (Benadryl) 12.5 mg Q6H PRN IVP Itching/Pruritis 02/18/20 17:15 03/19/20 17:14 Heparin Sodium (Porcine) (Heparin 5000 units/ml) 5,000 units EVERY 8 HOURS SUBQ 02/19/20 22:00 04/04/20 21:59 Meclizine HCl (Antivert) 25 mg TID PRN ORAL for dizziness 02/20/20 20:30 03/21/20 20:29 Metronidazole 100 ml @ 100 mls/hr Q8HR IVPB 02/20/20 14:00 02/27/20 13:59 02/21/20 05:47 Morphine Sulfate (Morphine Sulfate) 1 mg Q4H PRN IVP pain scale 1-3 02/18/20 17:15 02/25/20 17:14 Morphine Sulfate (Morphine Sulfate) 2 mg Q4H PRN IVP pain scale 4-6 02/18/20 17:15 02/25/20 17:14 02/18/20 21:16 Morphine Sulfate (Morphine Sulfate) 4 mg Q4H PRN IVP pain score 7-10 02/18/20 17:15 02/25/20 17:14 Ondansetron HCl (Zofran) 4 mg Q6H PRN IVP Nausea & Vomiting 02/15/20 16:15 03/16/20 16:14 Ondansetron HCl (Zofran) 4 mg Q6H PRN IVP Nausea & Vomiting 02/18/20 17:15 03/19/20 17:14 Piperacillin Sod/ Tazobactam Sod 3.375 gm/Sodium Chloride 110 ml @ 27.5 mls/hr EVERY 8 HOURS IVPB 02/18/20 22:00 02/23/20 21:59 02/21/20 05:47 Promethazine HCl 50 mg/Sodium Chloride 111 ml @ 222 mls/hr Q6H PRN IVPB for dizziness 02/20/20 20:45 03/21/20 20:44 02/20/20 21:42 Assessment/Plan Assessment/Plan IMPRESSION: 1. S/p laparotomy 2. Severe hypokalemia. Corrected 3. Hypertension. 4. Diuretic use. DISCUSSION: Replaced potassium. S/P laparotomy I will continue to follow carefully. Complaining of dizziness x 3-4 days Will monitor; doubt if it is severe Await return of bowel fxn Hanna Cline Omar Syed MD Feb 21, 2020 13:23
[2020-02-21 16:00] VITALS: BP 114/70
--- NOTE | 2020-02-21 16:50 | Diagnostic Imaging Report ---
Indication: Shortness of breath Technique: One view of the chest Comparison: 02/15/2020 Findings: There is interim development of some hazy infiltrate in the left lung base and right perihilar region. There is central bronchial wall thickening again demonstrated. The heart size is normal. Of sizable amount of free air is seen under both hemidiaphragms. Impression: Hazy infiltrates bilaterally, left greater than right Considerable free intraperitoneal air. Most likely related to recent surgery. Correlate with clinical findings. This finding was discussed by phone with Dr. Brito at the time of interpretation
--- NOTE | 2020-02-21 19:42 | NUR ---
NURSE HAND-OFF REPORT: Important Events on Shift: Patient Status: fc, stable Diet: npo Pending Orders: Pending Results/Labs: Pending MD notification: Latest Vital Signs: Temperature 98.6 , Pulse 117 , B/P 114 /70 , Respiratory Rate 21 , O2 SAT 95 , Nasal Cannula, O2 Flow Rate 2.0 . Vital Sign Comment: EKG Rhythm: Sinus Tachycardia Rhythm change?: N MD Notified?: N - MD Response: Latest Scherer Fall Score: 20 Fall Risk: Low Risk Safety Measures: Call light Within Reach, Bed Alarm Zone 1, Side Rails Side Rails x2, Bed position Low and Locked. Fall Precautions: Patient Fall Education Report given to donn GARZON.
--- NOTE | 2020-02-21 19:46 | NUR ---
NURSE NOTES: Patient received from Eli GARZON. Patient in stable condition. A&O x4. No s/s of acute distress. on NPO except for ice chips. Petechiae noted on bilateral lower and upper extremities. Heparin was endorsed to be held, Doctor aware. Leiva patent and intact draining well to gravity. IV site on Left FA 22G and Right Hand 24G intact and patent. On room air saturating well. Bed in lowest position and locked. Call light and bedside table within reach. WIll continue plan of care.
[2020-02-21 20:00] VITALS: BP 122/75
--- NOTE | 2020-02-21 22:58 | CDS Physician Query ---
Clarification is required for compliance, coding accuracy, and to reflect severity of illness for this patient Dear Dr. Zacarias Date: 02/21/20 CDI: Prince Gayle BMI is 19 Labs: Albumin 1.6, 1.9 Per progress note on 02/21/20, patient presented with "potential large bowel obstruction s/p laparotomy, severe hypokalemia, hypertension, diuretic use" Surgery progress note on 02/21/20, patient admitted with abdominal dist ention, large bowel obstruction s/p ex lap, left colectomy and omentectomy". Pt on NPO. Nephrology progress note on 02/12/20, patient has "severe hypokalemia, abdominal distention - bowel obstruction due to colonic mass, HTN, Dehydration, HLD. Could you please clarify condition(s) associated with findings above: [ ] Malnutrition [ ] Severe [ ] Moderate [ ] Mild [ ] Anorexia [ ] Cachexia [ ] Underweight [ ] Normal weight [ ] Other: [ ] Unable to determine: Present on Admission: [ ] Yes [ ] No [ ] Clinically Undetermined Physician signature Date Please also document in your Progress Notes and/or Discharge Summary and indicate if the condition was present on admission. MTDD
[2020-02-22] VITALS: BP 127/73
[2020-02-22 04:00] VITALS: BP 134/72
[2020-02-22] MEDS: Heparin 5000 units/ml inj SUBQ SCH ×3 (06:00→22:00)
[2020-02-22] MEDS: Piperacillin/Tazobactam 3.375 GM in NS 110 ML IVPB SCH ×3 (06:10→22:54)
[2020-02-22] MEDS: Dextrose 5%/Lactated Ringer's 1,000 ML IV SCH (06:10)
[2020-02-22 07:07] LABS: HEMATOCRIT 25.6 % (37.0-47.0); HEMOGLOBIN 8.4 G/DL (12.0-16.0); MEAN CORPUSCULAR VOLUME 86 FL (80-99); PLATELET COUNT 123 K/UL (150-450); RED BLOOD COUNT 2.96 M/UL (4.20-5.40); WHITE BLOOD COUNT 7.6 K/UL (4.8-10.8)
[2020-02-22 07:22] LABS: ALBUMIN 1.6 G/DL (3.4-5.0); ALBUMIN/GLOBULIN RATIO 0.5 (1.0-2.7); BILIRUBIN,TOTAL 0.6 MG/DL (0.2-1.0); CALCIUM 7.6 MG/DL (8.5-10.1)
--- NOTE | 2020-02-22 07:34 | NUR ---
NURSE HAND-OFF REPORT: Important Events on Shift:[none] Patient Status: [Stable] Diet: [NPO] Pending Orders: [] Pending Results/Labs:[] Pending MD notification:[] Latest Vital Signs: Temperature 98.9 , Pulse 116 , B/P 134 /72 , Respiratory Rate 19 , O2 SAT 95 , Nasal Cannula, O2 Flow Rate 2.0 . Vital Sign Comment: [] EKG Rhythm: Sinus Tachycardia Rhythm change?: N MD Notified?: N - MD Response: Latest Scherer Fall Score: 20 Fall Risk: Low Risk Safety Measures: Call light Within Reach, Bed Alarm Zone 1, Side Rails Side Rails x2, Bed position Low and Locked. Fall Precautions: Patient Fall Education Report given to [Eli GARZON].
--- NOTE | 2020-02-22 07:54 | NUR ---
NURSE NOTES: Received report from RYANN Keita. Pt stable and sleeping in bed. Pt IV running fluids, asymptomatic and intact. Pt on 2LPM NC. Pt has no s/s or complaints of distress at this time. pt bed low and locked, call light in reach and bed alarm on. Will continue to monitor
[2020-02-22 08:00] VITALS: BP 134/83
[2020-02-22 08:08] LABS: POTASSIUM 2.7 MMOL/L (3.5-5.1)
--- NOTE | 2020-02-22 08:12 | NUR ---
NURSE NOTES: Notified Md Marinelli of critical lab K2.7. awaiting call back. will continue to monitor
--- NOTE | 2020-02-22 09:14 | General Progress Note ---
Subjective ROS Limited/Unobtainable: No Allergies: Coded Allergies: No Known Allergies (Unverified , 02/15/20) Objective Last 24 Hour Vital Signs Date Time Temp Pulse Resp B/P (MAP) Pulse Ox O2 Delivery O2 Flow Rate FiO2 02/22/20 08:00 97.5 113 20 134/83 (100) 96 02/22/20 04:00 116 02/22/20 04:00 98.9 116 19 134/72 (92) 95 02/22/20 00:00 98.1 121 20 127/73 (91) 98 02/22/20 00:00 121 02/21/20 21:00 Nasal Cannula 2.0 02/21/20 20:12 98 Nasal Cannula 2.0 28 02/21/20 20:00 99.3 115 20 122/75 (91) 99 02/21/20 20:00 115 02/21/20 16:00 118 02/21/20 16:00 98.6 117 21 114/70 (85) 95 02/21/20 12:00 122 02/21/20 12:00 98.6 119 20 131/75 (93) 95 Intake and Output 02/21/20 02/22/20 19:00 07:00 Output Total 200 ml 400 ml Balance -200 ml -400 ml Output Urine Total 200 ml 400 ml Laboratory Tests 02/22/20 06:35: White Blood Count 7.6, Red Blood Count 2.96L, Hemoglobin 8.4L, Hematocrit 25.6L, Mean Corpuscular Volume 86, Mean Corpuscular Hemoglobin 28.3, Mean Corpuscular Hemoglobin Concent 32.7, Red Cell Distribution Width 14.0, Platelet Count 123L, Mean Platelet Volume 8.2, Neutrophils (%) (Auto) , Lymphocytes (%) (Auto) , Monocytes (%) (Auto) , Eosinophils (%) (Auto) , Basophils (%) (Auto) , Neutrophils % (Manual) [Pending], Lymphocytes % (Manual) [Pending], Platelet Estimate [Pending], Platelet Morphology [Pending], Sodium Level 153H, Potassium Level 2.7*L, Chloride Level 116H, Carbon Dioxide Level 25, Anion Gap 12, Blood Urea Nitrogen 13, Creatinine 1.0, Estimat Glomerular Filtration Rate 55.5, Glucose Level 162H, Calcium Level 7.6L, Total Bilirubin 0.6, Aspartate Amino Transf (AST/SGOT) 40H, Alanine Aminotransferase (ALT/SGPT) 27, Alkaline Phosphatase 79, Total Protein 4.6L, Albumin 1.6L, Globulin 3.0, Albumin/Globulin Ratio 0.5L Height (Feet): 5 Height (Inches): 4.00 Weight (Pounds): 113 General Appearance: alert EENT: normal ENT inspection Neck: supple Cardiovascular: normal rate Respiratory/Chest: decreased breath sounds Abdomen: other - post surg Extremities: non-tender Assessment/Plan Problem List: (1) Large bowel obstruction ICD Codes: K56.609 - Unspecified intestinal obstruction, unspecified as to partial versus complete obstruction SNOMED: 450577948 (2) Hypokalemia ICD Codes: E87.6 - Hypokalemia SNOMED: 61316700 (3) Lightheaded ICD Codes: R42 - Dizziness and giddiness SNOMED: 751530992 Status: stable Assessment/Plan: colon cancer with bowel obstruction s/p resection POD #4 fu surg recs Graeme Hirsch MD Feb 22, 2020 09:14
--- NOTE | 2020-02-22 10:18 | Pulmonology Progress Note ---
Subjective ROS Limited/Unobtainable: No Interval Events: S/p colectomy Constitutional: Reports: no symptoms HEENT: Repors: no symptoms Respiratory: Reports: no symptoms Cardiovascular: Reports: no symptoms Gastrointestinal/Abdominal: Reports: constipation, bloating Genitourinary: Reports: no symptoms Allergies: Coded Allergies: No Known Allergies (Unverified , 02/15/20) Objective Last 24 Hour Vital Signs Date Time Temp Pulse Resp B/P (MAP) Pulse Ox O2 Delivery O2 Flow Rate FiO2 02/22/20 08:00 97.5 113 20 134/83 (100) 96 02/22/20 04:00 116 02/22/20 04:00 98.9 116 19 134/72 (92) 95 02/22/20 00:00 98.1 121 20 127/73 (91) 98 02/22/20 00:00 121 02/21/20 21:00 Nasal Cannula 2.0 02/21/20 20:12 98 Nasal Cannula 2.0 28 02/21/20 20:00 99.3 115 20 122/75 (91) 99 02/21/20 20:00 115 02/21/20 16:00 118 02/21/20 16:00 98.6 117 21 114/70 (85) 95 02/21/20 12:00 122 02/21/20 12:00 98.6 119 20 131/75 (93) 95 Intake and Output 02/21/20 02/22/20 19:00 07:00 Output Total 200 ml 400 ml Balance -200 ml -400 ml Output Urine Total 200 ml 400 ml General Appearance: no acute distress HEENT: normocephalic Respiratory: chest wall non-tender, lungs clear Cardiovascular: normal peripheral pulses Abdomen: absent bowel sounds Laboratory Tests 02/22/20 06:35: White Blood Count 7.6, Red Blood Count 2.96L, Hemoglobin 8.4L, Hematocrit 25.6L, Mean Corpuscular Volume 86, Mean Corpuscular Hemoglobin 28.3, Mean Corpuscular Hemoglobin Concent 32.7, Red Cell Distribution Width 14.0, Platelet Count 123L, Mean Platelet Volume 8.2, Neutrophils (%) (Auto) , Lymphocytes (%) (Auto) , Monocytes (%) (Auto) , Eosinophils (%) (Auto) , Basophils (%) (Auto) , Neutrophils % (Manual) [Pending], Lymphocytes % (Manual) [Pending], Platelet Estimate [Pending], Platelet Morphology [Pending], Sodium Level 153H, Potassium Level 2.7*L, Chloride Level 116H, Carbon Dioxide Level 25, Anion Gap 12, Blood Urea Nitrogen 13, Creatinine 1.0, Estimat Glomerular Filtration Rate 55.5, Glucose Level 162H, Calcium Level 7.6L, Total Bilirubin 0.6, Aspartate Amino Transf (AST/SGOT) 40H, Alanine Aminotransferase (ALT/SGPT) 27, Alkaline Phosphatase 79, Total Protein 4.6L, Albumin 1.6L, Globulin 3.0, Albumin/Globulin Ratio 0.5L Current Medications Medications (Trade) Dose Ordered Sig/Fozia Route PRN Reason Start Time Stop Time Status Last Admin Dose Admin Acetaminophen (Tylenol) 650 mg Q6H PRN ORAL Mild Pain (Pain Scale 1-3) 02/18/20 17:15 03/19/20 17:14 Dextrose/Lactated Ringer's 1,000 ml @ 100 mls/hr Q10H IV 02/20/20 14:30 03/21/20 14:29 02/22/20 06:10 Diphenhydramine HCl (Benadryl) 12.5 mg Q6H PRN IVP Itching/Pruritis 02/18/20 17:15 03/19/20 17:14 Heparin Sodium (Porcine) (Heparin 5000 units/ml) 5,000 units EVERY 8 HOURS SUBQ 02/19/20 22:00 04/04/20 21:59 Meclizine HCl (Antivert) 25 mg TID PRN ORAL for dizziness 02/20/20 20:30 03/21/20 20:29 Metronidazole 100 ml @ 100 mls/hr Q8HR IVPB 02/20/20 14:00 02/27/20 13:59 02/22/20 05:07 Morphine Sulfate (Morphine Sulfate) 1 mg Q4H PRN IVP pain scale 1-3 02/18/20 17:15 02/25/20 17:14 Morphine Sulfate (Morphine Sulfate) 2 mg Q4H PRN IVP pain scale 4-6 02/18/20 17:15 02/25/20 17:14 02/18/20 21:16 Morphine Sulfate (Morphine Sulfate) 4 mg Q4H PRN IVP pain score 7-10 02/18/20 17:15 02/25/20 17:14 Ondansetron HCl (Zofran) 4 mg Q6H PRN IVP Nausea & Vomiting 02/15/20 16:15 03/16/20 16:14 Ondansetron HCl (Zofran) 4 mg Q6H PRN IVP Nausea & Vomiting 02/18/20 17:15 03/19/20 17:14 Piperacillin Sod/ Tazobactam Sod 3.375 gm/Sodium Chloride 110 ml @ 27.5 mls/hr EVERY 8 HOURS IVPB 02/18/20 22:00 02/23/20 21:59 02/22/20 06:10 Potassium Chloride 100 ml @ 100 mls/hr Q1HR IVPB 02/22/20 10:00 02/22/20 17:59 02/22/20 09:58 Promethazine HCl 50 mg/Sodium Chloride 111 ml @ 222 mls/hr Q6H PRN IVPB for dizziness 02/20/20 20:45 03/21/20 20:44 02/20/20 21:42 Assessment/Plan Assessment/Plan IMPRESSION: 1. S/p laparotomy 2. Severe hypokalemia. Corrected 3. Hypertension. 4. Diuretic use. DISCUSSION: Replaced potassium. S/P laparotomy I will continue to follow carefully. Still npo Await return of bowel fxn Hanna Cline Omar Syed MD Feb 22, 2020 10:18
--- NOTE | 2020-02-22 11:40 | NUR ---
INSURANCE CLINICALS FAXED TO [facility] T: [phone] opt 1 F: [phone]
[2020-02-22 12:00] VITALS: BP 134/84
--- NOTE | 2020-02-22 13:06 | Nephrology Progress Note ---
Assessment/Plan Plan #Severe hypokalemia #Abdominal distention - bowel obstruction due to colonic mass #htn #Dehydration #HLD - s/p resection POD #3 - replete K - IVF- switch to D5W + 20kcl at 150cc/hr - replete K, mag and phos - NPO - monitor lytes - avoid nephrotoxins - gen surg eval Subjective ROS Limited/Unobtainable: No Constitutional: Reports: weakness HEENT: Denies: no symptoms, eye pain, blurred vision, tearing, double vision, ear pain, ear discharge, nose pain, nose congestion, throat pain, throat swelling, mouth pain, mouth swelling, other Genitourinary: Denies: no symptoms, burning, discharge, frequency, flank pain, hematuria, incontinence, pain, urgency, other Neurologic/Psychiatric: Denies: no symptoms, anxiety, depressed, emotional problems, headache, numbness, paresthesia, pre-existing deficit, seizure, tingling, tremors, weakness, other Subjective s/p resection POD #3 K low sodium uptrending Objective Objective Last 24 Hour Vital Signs Date Time Temp Pulse Resp B/P (MAP) Pulse Ox O2 Delivery O2 Flow Rate FiO2 02/22/20 09:00 Nasal Cannula 2.0 02/22/20 08:00 114 02/22/20 08:00 97.5 113 20 134/83 (100) 96 02/22/20 04:00 116 02/22/20 04:00 98.9 116 19 134/72 (92) 95 02/22/20 00:00 98.1 121 20 127/73 (91) 98 02/22/20 00:00 121 02/21/20 21:00 Nasal Cannula 2.0 02/21/20 20:12 98 Nasal Cannula 2.0 28 02/21/20 20:00 99.3 115 20 122/75 (91) 99 02/21/20 20:00 115 02/21/20 16:00 118 02/21/20 16:00 98.6 117 21 114/70 (85) 95 Intake and Output 02/21/20 02/22/20 19:00 07:00 Output Total 200 ml 400 ml Balance -200 ml -400 ml Output Urine Total 200 ml 400 ml Laboratory Tests 02/22/20 06:35: White Blood Count 7.6, Red Blood Count 2.96L, Hemoglobin 8.4L, Hematocrit 25.6L, Mean Corpuscular Volume 86, Mean Corpuscular Hemoglobin 28.3, Mean Corpuscular Hemoglobin Concent 32.7, Red Cell Distribution Width 14.0, Platelet Count 123L, Mean Platelet Volume 8.2, Neutrophils (%) (Auto) , Lymphocytes (%) (Auto) , Monocytes (%) (Auto) , Eosinophils (%) (Auto) , Basophils (%) (Auto) , Differential Total Cells Counted 100, Neutrophils % (Manual) 91H, Lymphocytes % (Manual) 6L, Monocytes % (Manual) 1, Eosinophils % (Manual) 0, Basophils % (Manual) 0, Band Neutrophils 2, Nucleated Red Blood Cells 1, Platelet Estimate DecreasedL, Platelet Morphology Normal, Red Blood Cell Morphology Normal, Sodium Level 153H, Potassium Level 2.7*L, Chloride Level 116H, Carbon Dioxide Level 25, Anion Gap 12, Blood Urea Nitrogen 13, Creatinine 1.0, Estimat Glomerular Filtration Rate 55.5, Glucose Level 162H, Calcium Level 7.6L, Total Bilirubin 0.6, Aspartate Amino Transf (AST/SGOT) 40H, Alanine Aminotransferase (ALT/SGPT) 27, Alkaline Phosphatase 79, Total Protein 4.6L, Albumin 1.6L, Globulin 3.0, Albumin/Globulin Ratio 0.5L Height (Feet): 5 Height (Inches): 4.00 Weight (Pounds): 113 Yakelin Arnett M.D. Feb 22, 2020 13:06
--- NOTE | 2020-02-22 13:25 | Surgery Progress Note ---
Surgery Progress Note Subjective Procedure Performed ex lap left colectomy mobilization of splenic flexure omentectomy primary anastomosis Additional Comments afebrile tachy uop noted labs improved wbc resolved abd distended cxr ntoed kub ordered no pain Objective Last 24 Hour Vital Signs Date Time Temp Pulse Resp B/P (MAP) Pulse Ox O2 Delivery O2 Flow Rate FiO2 02/22/20 12:00 108 02/22/20 12:00 98.1 108 20 134/84 (101) 100 02/22/20 09:00 Nasal Cannula 2.0 02/22/20 08:00 114 02/22/20 08:00 97.5 113 20 134/83 (100) 96 02/22/20 04:00 116 02/22/20 04:00 98.9 116 19 134/72 (92) 95 02/22/20 00:00 98.1 121 20 127/73 (91) 98 02/22/20 00:00 121 02/21/20 21:00 Nasal Cannula 2.0 02/21/20 20:12 98 Nasal Cannula 2.0 28 02/21/20 20:00 99.3 115 20 122/75 (91) 99 02/21/20 20:00 115 02/21/20 16:00 118 02/21/20 16:00 98.6 117 21 114/70 (85) 95 I&O Intake and Output 02/21/20 02/22/20 19:00 07:00 Output Total 200 ml 400 ml Balance -200 ml -400 ml Output Urine Total 200 ml 400 ml Dressing: dry Wound: clean, dry, intact Cardiovascular: RSR Respiratory: clear Abdomen: soft, distended, non-tender Extremities: no edema, no tenderness, no cyanosis Laboratory Tests Test 02/22/20 06:35 White Blood Count 7.6 K/UL (4.8-10.8) Red Blood Count 2.96 M/UL (4.20-5.40) L Hemoglobin 8.4 G/DL (12.0-16.0) L Hematocrit 25.6 % (37.0-47.0) L Mean Corpuscular Volume 86 FL (80-99) Mean Corpuscular Hemoglobin 28.3 PG (27.0-31.0) Mean Corpuscular Hemoglobin Concent 32.7 G/DL (32.0-36.0) Red Cell Distribution Width 14.0 % (11.6-14.8) Platelet Count 123 K/UL (150-450) L Mean Platelet Volume 8.2 FL (6.5-10.1) Neutrophils (%) (Auto) % (45.0-75.0) Lymphocytes (%) (Auto) % (20.0-45.0) Monocytes (%) (Auto) % (1.0-10.0) Eosinophils (%) (Auto) % (0.0-3.0) Basophils (%) (Auto) % (0.0-2.0) Differential Total Cells Counted 100 Neutrophils % (Manual) 91 % (45-75) H Lymphocytes % (Manual) 6 % (20-45) L Monocytes % (Manual) 1 % (1-10) Eosinophils % (Manual) 0 % (0-3) Basophils % (Manual) 0 % (0-2) Band Neutrophils 2 % (0-8) Nucleated Red Blood Cells 1 /100 WBC Platelet Estimate Decreased L Platelet Morphology Normal Red Blood Cell Morphology Normal Sodium Level 153 MMOL/L (136-145) H Potassium Level 2.7 MMOL/L (3.5-5.1) *L Chloride Level 116 MMOL/L (98-107) H Carbon Dioxide Level 25 MMOL/L (21-32) Anion Gap 12 mmol/L (5-15) Blood Urea Nitrogen 13 mg/dL (7-18) Creatinine 1.0 MG/DL (0.55-1.30) Estimat Glomerular Filtration Rate 55.5 mL/min (>60) Glucose Level 162 MG/DL (74-106) H Calcium Level 7.6 MG/DL (8.5-10.1) L Total Bilirubin 0.6 MG/DL (0.2-1.0) Aspartate Amino Transf (AST/SGOT) 40 U/L (15-37) H Alanine Aminotransferase (ALT/SGPT) 27 U/L (12-78) Alkaline Phosphatase 79 U/L (46-116) Total Protein 4.6 G/DL (6.4-8.2) L Albumin 1.6 G/DL (3.4-5.0) L Globulin 3.0 g/dL Albumin/Globulin Ratio 0.5 (1.0-2.7) L Plan Problems: (1) Lightheaded (2) Hypokalemia (3) Large bowel obstruction Assessment & Plan: 64-year-old female with abdominal distention potential large bowel obstruction. Afebrile, hemodynamic stable, labs noted no leukocytosis no pain no bleeding. No prior abdominal surgeries. Nausea and emesis clear liquid. Decreased appetite. Cannot recall last flatus or BM. CT as below. No direct mass or abnormality identified but there is absolutely identifiable transition at the rectosigmoid area with proximal dilatation. A colonoscopy is warranted but though would be with definitive risk of potential perforation. GI consult pending. Replace electrolytes. N.p.o. IV fluids will await scope for findings. Conceivably may require surgical intervention. Thank you for let me participate in patient's care will follow with recommendations GI consider for scope 02/17 will be available for surgery in case of emergency high risk for perforation or complication and understands. but strongly recommend scope prior to surgery for etiology purposes. s/p ex lap. see op report recovering okay to downgrade to tele npo okay for ice chips iv fluids abx tomas to stay in until ambulatory heparin petechia plt down hold heparin scds cont abx trend labs There are several circumscribed low-density nonenhancing cysts noted in the liver. The spleen is homogeneous. Gallbladder is without sludge or stone and there is no wall thickening. The pancreas is unremarkable. Adrenals are normal in morphology. The kidneys are normal in size, shape and axis. Small bowel loops are nondistended. The dominant abnormality is severe colonic distention containing air-fluid levels and stool debris. Dilated colon extends down to the rectosigmoid junction where there is an apparent transition. The rectal vault is nondistended with only a small amount of stool. No definite discernible mass is detected there is There is no free fluid or free air. No pathologic adenopathy demonstrated. Bladder is empty. There is no suspicious superficial soft tissue or osseous abnormality. IMPRESSION: SEVERE COLONIC DISTENTION WITH AIR-FLUID LEVELS AND STOOL DEBRIS. THERE IS APPARENT TRANSITION AT THE RECTOSIGMOID JUNCTION WITH A RELATIVELY EMPTY RECTAL VAULT WITH ONLY SMALL AMOUNT OF STOOL. NO DEFINITE DISCERNIBLE MASS AT THE TRANSITION POINT. RECOMMEND GI CONSULTATION AND CONSIDER COLONOSCOPY. Swapnil Brito Feb 22, 2020 13:25
--- NOTE | 2020-02-22 14:40 | Cardiac Electrophysiology PN ---
Assessment/Plan Assessment/Plan 1. Nonsustained VT 5 beats and Palpitations. Correct hypokalemia. Echo pending 2. Bowel obstruction. S/P ex lap, left colectomy, mobilization of splenic flexure by Dr Brito 3. Hypokalemia. being replaced with iv K and Mg 4. PVCs and dizziness Subjective Subjective Feeling better. Had 5 beats of VT yesterday. HR goes at times to more than 130s in sinus tach. NPO Objective Last 24 Hour Vital Signs Date Time Temp Pulse Resp B/P (MAP) Pulse Ox O2 Delivery O2 Flow Rate FiO2 02/22/20 12:00 108 02/22/20 12:00 98.1 108 20 134/84 (101) 100 02/22/20 09:00 Nasal Cannula 2.0 02/22/20 08:00 114 02/22/20 08:00 97.5 113 20 134/83 (100) 96 02/22/20 04:00 116 02/22/20 04:00 98.9 116 19 134/72 (92) 95 02/22/20 00:00 98.1 121 20 127/73 (91) 98 02/22/20 00:00 121 02/21/20 21:00 Nasal Cannula 2.0 02/21/20 20:12 98 Nasal Cannula 2.0 28 02/21/20 20:00 99.3 115 20 122/75 (91) 99 02/21/20 20:00 115 02/21/20 16:00 118 02/21/20 16:00 98.6 117 21 114/70 (85) 95 Intake and Output 02/21/20 02/22/20 19:00 07:00 Output Total 200 ml 400 ml Balance -200 ml -400 ml Output Urine Total 200 ml 400 ml Laboratory Tests Test 02/22/20 06:35 White Blood Count 7.6 K/UL (4.8-10.8) Red Blood Count 2.96 M/UL (4.20-5.40) L Hemoglobin 8.4 G/DL (12.0-16.0) L Hematocrit 25.6 % (37.0-47.0) L Mean Corpuscular Volume 86 FL (80-99) Mean Corpuscular Hemoglobin 28.3 PG (27.0-31.0) Mean Corpuscular Hemoglobin Concent 32.7 G/DL (32.0-36.0) Red Cell Distribution Width 14.0 % (11.6-14.8) Platelet Count 123 K/UL (150-450) L Mean Platelet Volume 8.2 FL (6.5-10.1) Neutrophils (%) (Auto) % (45.0-75.0) Lymphocytes (%) (Auto) % (20.0-45.0) Monocytes (%) (Auto) % (1.0-10.0) Eosinophils (%) (Auto) % (0.0-3.0) Basophils (%) (Auto) % (0.0-2.0) Differential Total Cells Counted 100 Neutrophils % (Manual) 91 % (45-75) H Lymphocytes % (Manual) 6 % (20-45) L Monocytes % (Manual) 1 % (1-10) Eosinophils % (Manual) 0 % (0-3) Basophils % (Manual) 0 % (0-2) Band Neutrophils 2 % (0-8) Nucleated Red Blood Cells 1 /100 WBC Platelet Estimate Decreased L Platelet Morphology Normal Red Blood Cell Morphology Normal Sodium Level 153 MMOL/L (136-145) H Potassium Level 2.7 MMOL/L (3.5-5.1) *L Chloride Level 116 MMOL/L (98-107) H Carbon Dioxide Level 25 MMOL/L (21-32) Anion Gap 12 mmol/L (5-15) Blood Urea Nitrogen 13 mg/dL (7-18) Creatinine 1.0 MG/DL (0.55-1.30) Estimat Glomerular Filtration Rate 55.5 mL/min (>60) Glucose Level 162 MG/DL (74-106) H Calcium Level 7.6 MG/DL (8.5-10.1) L Total Bilirubin 0.6 MG/DL (0.2-1.0) Aspartate Amino Transf (AST/SGOT) 40 U/L (15-37) H Alanine Aminotransferase (ALT/SGPT) 27 U/L (12-78) Alkaline Phosphatase 79 U/L (46-116) Total Protein 4.6 G/DL (6.4-8.2) L Albumin 1.6 G/DL (3.4-5.0) L Globulin 3.0 g/dL Albumin/Globulin Ratio 0.5 (1.0-2.7) L Objective HEENT: No JVD Cardiovascular: RSR. No GRM Respiratory: clear Abdomen: soft, distended, non-tender. Jessica intact with no drain Extremities: no edema, no tenderness, no cyanosis Peter Quintana MD Feb 22, 2020 14:40
--- NOTE | 2020-02-22 15:16 | NUR ---
CASE MANAGEMENT:REVIEW 02/22/20 SI: POD #4 S/P LEFT COLECTOMY. OMENTECTOMY 97.5 113 20 134/84 100% ON 2L/NC H/H-8.4/25.6 PLT-123 NA+153 K-2.7 IS: IVF@150/HR IV MAG SULFATE Q1HRS X2 IV KCL Q1HRS X8 BAGS IV FLAGYL Q8HRS IV ZOSYN Q8HRS NPO : TELEMETRY STATUS DCP: PATIENT IS FROM HOME PLAN: ABDOMINAL XRAY 2DECHO OKAY FOR ICE CHIPS
[2020-02-22] MEDS: D5W w/KCl 20mEq 1,000 ML IV SCH ×2 (15:36→21:54)
[2020-02-22 16:00] VITALS: BP 133/77
--- NOTE | 2020-02-22 17:39 | Cardiology Report ---
APPROVED REPORT EXAM: Two-dimensional and M-mode echocardiogram with Doppler and color Doppler. INDICATION Arrhythmia M-Mode DIMENSIONS IVSd1.3 (0.7-1.1cm)Left Atrium (MM)2.3 (1.6-4.0cm) LVDd4.6 (3.5-5.6cm)Aortic Root2.8 (2.0-3.7cm) PWd0.9 (0.7-1.1cm)Aortic Cusp Exc.1.7 (1.5-2.0cm) IVSs1.4 cm LVDs3.2 (2.5-4.0cm) PWs1.6 cm Other Information Quality : Limited <Conclusion> Technically limited &difficult study due to pt requested to terminate the study. Only parasternal long axis images were obtained Normal function of the anterior septum and posterior grubbs Left ventricular ejection fraction cannot be estimated as other wall were not visualized No evidence of pericardial effusion. Focal aortic valve sclerosis with adequate cusp excursion. Valvular study not completed.
--- NOTE | 2020-02-22 19:26 | NUR ---
NURSE NOTES: Patient received from Eli GARZON. Patient in stable condition but more lethargic today as endorsed by previous nurse, aware. Sleeping at this time. IV sites patent and intact on Left FA 22G and Right FA 24G running zosyn 3.375mg and D5 with 20meqs of KCL running @ 150mls/hr. Saturating well on room air. Bed in lowest position and locked. Call light and bedside table within reach. Will continue plan of care.
--- NOTE | 2020-02-22 19:45 | NUR ---
NURSE HAND-OFF REPORT: Important Events on Shift: appears more fatigued than before, edema continues, Md garza bedside today and aware Patient Status: fc, stable 5 Diet: npo except ice chips Pending Orders: Pending Results/Labs: Pending MD notification: Latest Vital Signs: Temperature 97.9 , Pulse 115 , B/P 133 /77 , Respiratory Rate 20 , O2 SAT 100 , Nasal Cannula, O2 Flow Rate 2.0 . Vital Sign Comment: EKG Rhythm: Sinus Tachycardia Rhythm change?: N MD Notified?: N - MD Response: Latest Scherer Fall Score: 20 Fall Risk: Low Risk Safety Measures: Call light Within Reach, Bed Alarm Zone 1, Side Rails Side Rails x2, Bed position Low and Locked. Fall Precautions: Patient Fall Education Report given to RYANN Keita.
[2020-02-22 20:00] VITALS: BP 131/82
[2020-02-23] VITALS: BP 130/85
[2020-02-23] MEDS: D5W w/KCl 20mEq 1,000 ML IV SCH ×3 (03:52→17:47)
[2020-02-23 04:00] VITALS: BP 136/89
[2020-02-23] MEDS: Heparin 5000 units/ml inj SUBQ SCH ×3 (06:00→22:00)
[2020-02-23] MEDS: Piperacillin/Tazobactam 3.375 GM in NS 110 ML IVPB SCH ×2 (06:06→14:13)
[2020-02-23 07:17] LABS: HEMATOCRIT 25.3 % (37.0-47.0); HEMOGLOBIN 8.2 G/DL (12.0-16.0); MEAN CORPUSCULAR VOLUME 86 FL (80-99); PLATELET COUNT 93 K/UL (150-450); RED BLOOD COUNT 2.92 M/UL (4.20-5.40); RED CELL DISTRIBUTION WIDTH 14.5 % (11.6-14.8); WHITE BLOOD COUNT 7.7 K/UL (4.8-10.8)
--- NOTE | 2020-02-23 07:30 | NUR ---
NURSE HAND-OFF REPORT: Important Events on Shift:[None] Patient Status: [Stable] Diet: [NPO] Pending Orders: [] Pending Results/Labs:[] Pending MD notification:[] Latest Vital Signs: Temperature 96.8 , Pulse 118 , B/P 136 /89 , Respiratory Rate 20 , O2 SAT 96 , Room Air, O2 Flow Rate 2.0 . Vital Sign Comment: [] EKG Rhythm: Sinus Tachycardia Rhythm change?: N MD Notified?: N - MD Response: Latest Scherer Fall Score: 20 Fall Risk: Low Risk Safety Measures: Call light Within Reach, Bed Alarm Zone 1, Side Rails Side Rails x2, Bed position Low and Locked. Fall Precautions: Patient Fall Education Report given to [Hugh GARZON].
[2020-02-23 07:44] LABS: ALBUMIN 1.5 G/DL (3.4-5.0); ALBUMIN/GLOBULIN RATIO 0.5 (1.0-2.7); BILIRUBIN,TOTAL 0.6 MG/DL (0.2-1.0); POTASSIUM 3.2 MMOL/L (3.5-5.1)
--- NOTE | 2020-02-23 07:48 | NUR ---
NURSE NOTES: Received patient in bed. Awake, A/O x4. On room air, respirations unlabored. Patient denies pain. IV in the Right forearm, infusing IVF as ordered. Bed low and locked, side rails up x2. Call light within reach with return demonstration.
[2020-02-23 07:58] LABS: INR 1.3 (0.9-1.1)
[2020-02-23 08:00] VITALS: BP 139/74
--- NOTE | 2020-02-23 09:19 | Nephrology Progress Note ---
Assessment/Plan Plan #Severe hypokalemia #Abdominal distention - bowel obstruction due to colonic mass #htn #Dehydration #HLD - s/p resection POD #3 - replete K - IVF- switch to D5W + 20kcl at 150cc/hr - replete K, mag and phos - NPO - monitor lytes - avoid nephrotoxins - gen surg eval Subjective Subjective s/p resection POD #3 K low sodium uptrending Objective Objective Last 24 Hour Vital Signs Date Time Temp Pulse Resp B/P (MAP) Pulse Ox O2 Delivery O2 Flow Rate FiO2 02/23/20 08:28 Room Air 02/23/20 08:00 97.7 125 20 139/74 (95) 96 02/23/20 04:00 96.8 118 20 136/89 (105) 96 02/23/20 04:00 118 02/23/20 00:00 96.8 111 20 130/85 (100) 97 02/23/20 00:00 111 02/22/20 21:00 Room Air 02/22/20 20:00 122 02/22/20 20:00 98.5 122 22 131/82 (98) 97 02/22/20 19:17 96 Nasal Cannula 2.0 28 02/22/20 16:00 110 02/22/20 16:00 97.9 115 20 133/77 (95) 100 02/22/20 12:00 108 02/22/20 12:00 98.1 108 20 134/84 (101) 100 Intake and Output 02/22/20 02/23/20 19:00 07:00 Output Total 250 ml 300 ml Balance -250 ml -300 ml Output Urine Total 250 ml 300 ml Laboratory Tests 02/23/20 05:40: White Blood Count 7.7, Red Blood Count 2.92L, Hemoglobin 8.2L, Hematocrit 25.3L, Mean Corpuscular Volume 86, Mean Corpuscular Hemoglobin 28.2, Mean Corpuscular Hemoglobin Concent 32.6, Red Cell Distribution Width 14.5, Platelet Count 93L, Mean Platelet Volume 8.1, Neutrophils (%) (Auto) , Lymphocytes (%) (Auto) , Monocytes (%) (Auto) , Eosinophils (%) (Auto) , Basophils (%) (Auto) , Differential Total Cells Counted 100, Neutrophils % (Manual) 86H, Lymphocytes % (Manual) 10L, Monocytes % (Manual) 2, Eosinophils % (Manual) 0, Basophils % (Manual) 0, Band Neutrophils 2, Nucleated Red Blood Cells 1, Platelet Estimate DecreasedL, Platelet Morphology Normal, Acanthocytes 1+, Schistocytes 1+, Erythrocyte Sedimentation Rate [Pending], Prothrombin Time 14.3H, Prothromb Time International Ratio 1.3H, Activated Partial Thromboplast Time 35H, Sodium Level 142#, Potassium Level 3.2L, Chloride Level 107, Carbon Dioxide Level 24, Anion Gap 11, Blood Urea Nitrogen 10, Creatinine 1.0, Estimat Glomerular Filtration Rate 55.5, Glucose Level 193H, Lactic Acid Level 5.80H, Calcium Level 7.0L, Phosphorus Level 1.0L, Magnesium Level 1.5L, Total Bilirubin 0.6, Aspartate Amino Transf (AST/SGOT) 36, Alanine Aminotransferase (ALT/SGPT) 27, Alkaline P hosphatase 83, C-Reactive Protein, Quantitative 13.6H, Total Protein 4.3L, Albumin 1.5L, Globulin 2.8, Albumin/Globulin Ratio 0.5L, Amylase Level 54, Lipase 282 Height (Feet): 5 Height (Inches): 4.00 Weight (Pounds): 113 Yakelin Arnett M.D. Feb 23, 2020 09:19
--- NOTE | 2020-02-23 09:52 | General Progress Note ---
Subjective ROS Limited/Unobtainable: No Allergies: Coded Allergies: No Known Allergies (Unverified , 02/15/20) Objective Last 24 Hour Vital Signs Date Time Temp Pulse Resp B/P (MAP) Pulse Ox O2 Delivery O2 Flow Rate FiO2 02/23/20 08:28 Room Air 02/23/20 08:00 97.7 125 20 139/74 (95) 96 02/23/20 04:00 96.8 118 20 136/89 (105) 96 02/23/20 04:00 118 02/23/20 00:00 96.8 111 20 130/85 (100) 97 02/23/20 00:00 111 02/22/20 21:00 Room Air 02/22/20 20:00 122 02/22/20 20:00 98.5 122 22 131/82 (98) 97 02/22/20 19:17 96 Nasal Cannula 2.0 28 02/22/20 16:00 110 02/22/20 16:00 97.9 115 20 133/77 (95) 100 02/22/20 12:00 108 02/22/20 12:00 98.1 108 20 134/84 (101) 100 Intake and Output 02/22/20 02/23/20 19:00 07:00 Output Total 250 ml 300 ml Balance -250 ml -300 ml Output Urine Total 250 ml 300 ml Laboratory Tests 02/23/20 05:40: White Blood Count 7.7, Red Blood Count 2.92L, Hemoglobin 8.2L, Hematocrit 25.3L, Mean Corpuscular Volume 86, Mean Corpuscular Hemoglobin 28.2, Mean Corpuscular Hemoglobin Concent 32.6, Red Cell Distribution Width 14.5, Platelet Count 93L, Mean Platelet Volume 8.1, Neutrophils (%) (Auto) , Lymphocytes (%) (Auto) , Monocytes (%) (Auto) , Eosinophils (%) (Auto) , Basophils (%) (Auto) , Differential Total Cells Counted 100, Neutrophils % (Manual) 86H, Lymphocytes % (Manual) 10L, Monocytes % (Manual) 2, Eosinophils % (Manual) 0, Basophils % (Manual) 0, Band Neutrophils 2, Nucleated Red Blood Cells 1, Platelet Estimate DecreasedL, Platelet Morphology Normal, Acanthocytes 1+, Schistocytes 1+, Erythrocyte Sedimentation Rate 35H, Prothrombin Time 14.3H, Prothromb Time International Ratio 1.3H, Activated Partial Thromboplast Time 35H, Sodium Level 142#, Potassium Level 3.2L, Chloride Level 107, Carbon Dioxide Level 24, Anion Gap 11, Blood Urea Nitrogen 10, Creatinine 1.0, Estimat Glomerular Filtration Rate 55.5, Glucose Level 193H, Lactic Acid Level 5.80H, Calcium Level 7.0L, Phosphorus Level 1.0L, Magnesium Level 1.5L, Total Bilirubin 0.6, Aspartate Amino Transf (AST/SGOT) 36, Alanine Aminotransferase (ALT/SGPT) 27, Alkaline P hosphatase 83, C-Reactive Protein, Quantitative 13.6H, Total Protein 4.3L, Albumin 1.5L, Globulin 2.8, Albumin/Globulin Ratio 0.5L, Amylase Level 54, Lipase 282 Height (Feet): 5 Height (Inches): 4.00 Weight (Pounds): 113 General Appearance: no apparent distress EENT: normal ENT inspection Neck: supple Cardiovascular: normal peripheral pulses Respiratory/Chest: decreased breath sounds Abdomen: normal bowel sounds, non tender, soft Extremities: non-tender Assessment/Plan Problem List: (1) Large bowel obstruction ICD Codes: K56.609 - Unspecified intestinal obstruction, unspecified as to partial versus complete obstruction SNOMED: 960253898 (2) Hypokalemia ICD Codes: E87.6 - Hypokalemia SNOMED: 81889467 (3) Lightheaded ICD Codes: R42 - Dizziness and giddiness SNOMED: 655538912 Status: stable Assessment/Plan: colon cancer with bowel obstruction s/p resection POD #5 npo fu surg recs Graeme Hirsch MD Feb 23, 2020 09:52
--- NOTE | 2020-02-23 11:50 | Pulmonology Progress Note ---
Subjective ROS Limited/Unobtainable: No Interval Events: S/p colectomy Constitutional: Reports: no symptoms HEENT: Repors: no symptoms Respiratory: Reports: no symptoms Cardiovascular: Reports: no symptoms Gastrointestinal/Abdominal: Reports: constipation, bloating Genitourinary: Reports: no symptoms Allergies: Coded Allergies: No Known Allergies (Unverified , 02/15/20) Objective Last 24 Hour Vital Signs Date Time Temp Pulse Resp B/P (MAP) Pulse Ox O2 Delivery O2 Flow Rate FiO2 02/23/20 08:28 Room Air 02/23/20 08:00 114 02/23/20 08:00 97.7 125 20 139/74 (95) 96 02/23/20 04:00 96.8 118 20 136/89 (105) 96 02/23/20 04:00 118 02/23/20 00:00 96.8 111 20 130/85 (100) 97 02/23/20 00:00 111 02/22/20 21:00 Room Air 02/22/20 20:00 122 02/22/20 20:00 98.5 122 22 131/82 (98) 97 02/22/20 19:17 96 Nasal Cannula 2.0 28 02/22/20 16:00 110 02/22/20 16:00 97.9 115 20 133/77 (95) 100 02/22/20 12:00 108 02/22/20 12:00 98.1 108 20 134/84 (101) 100 Intake and Output 02/22/20 02/23/20 19:00 07:00 Output Total 250 ml 300 ml Balance -250 ml -300 ml Output Urine Total 250 ml 300 ml General Appearance: no acute distress HEENT: normocephalic Respiratory: chest wall non-tender, lungs clear Cardiovascular: normal peripheral pulses Abdomen: absent bowel sounds Laboratory Tests 02/23/20 05:40: White Blood Count 7.7, Red Blood Count 2.92L, Hemoglobin 8.2L, Hematocrit 25.3L, Mean Corpuscular Volume 86, Mean Corpuscular Hemoglobin 28.2, Mean Corpuscular Hemoglobin Concent 32.6, Red Cell Distribution Width 14.5, Platelet Count 93L, Mean Platelet Volume 8.1, Neutrophils (%) (Auto) , Lymphocytes (%) (Auto) , Monocytes (%) (Auto) , Eosinophils (%) (Auto) , Basophils (%) (Auto) , Differential Total Cells Counted 100, Neutrophils % (Manual) 86H, Lymphocytes % (Manual) 10L, Monocytes % (Manual) 2, Eosinophils % (Manual) 0, Basophils % (Manual) 0, Band Neutrophils 2, Nucleated Red Blood Cells 1, Platelet Estimate DecreasedL, Platelet Morphology Normal, Acanthocytes 1+, Schistocytes 1+, Erythrocyte Sedimentation Rate 35H, Prothrombin Time 14.3H, Prothromb Time I nternational Ratio 1.3H, Activated Partial Thromboplast Time 35H, Sodium Level 142#, Potassium Level 3.2L, Chloride Level 107, Carbon Dioxide Level 24, Anion Gap 11, Blood Urea Nitrogen 10, Creatinine 1.0, Estimat Glomerular Filtration Rate 55.5, Glucose Level 193H, Lactic Acid Level 5.80H, Calcium Level 7.0L, Phosphorus Level 1.0L, Magnesium Level 1.5L, Total Bilirubin 0.6, Aspartate Amino Transf (AST/SGOT) 36, Alanine Aminotransferase (ALT/SGPT) 27, Alkaline Phosphatase 83, C-Reactive Protein, Quantitative 13.6H, Total Protein 4.3L, Albumin 1.5L, Globulin 2.8, Albumin/Globulin Ratio 0.5L, Amylase Level 54, Lipase 282 Current Medications Medications (Trade) Dose Ordered Sig/Fozia Route PRN Reason Start Time Stop Time Status Last Admin Dose Admin Acetaminophen (Tylenol) 650 mg Q6H PRN ORAL Mild Pain (Pain Scale 1-3) 02/18/20 17:15 03/19/20 17:14 Dextrose/ Electrolytes 1,000 ml @ 150 mls/hr Q6H40M IV 02/22/20 14:30 03/23/20 14:29 02/23/20 09:58 Diphenhydramine HCl (Benadryl) 12.5 mg Q6H PRN IVP Itching/Pruritis 02/18/20 17:15 03/19/20 17:14 Heparin Sodium (Porcine) (Heparin 5000 units/ml) 5,000 units EVERY 8 HOURS SUBQ 02/19/20 22:00 04/04/20 21:59 Magnesium Sulfate 100 ml @ 100 mls/hr Q1H IVPB 02/23/20 10:00 02/23/20 13:59 02/23/20 11:17 Meclizine HCl (Antivert) 25 mg TID PRN ORAL for dizziness 02/20/20 20:30 03/21/20 20:29 Metronidazole 100 ml @ 100 mls/hr Q8HR IVPB 02/20/20 14:00 02/27/20 13:59 02/23/20 06:06 Morphine Sulfate (Morphine Sulfate) 1 mg Q4H PRN IVP pain scale 1-3 02/18/20 17:15 02/25/20 17:14 Morphine Sulfate (Morphine Sulfate) 2 mg Q4H PRN IVP pain scale 4-6 02/18/20 17:15 02/25/20 17:14 02/18/20 21:16 Morphine Sulfate (Morphine Sulfate) 4 mg Q4H PRN IVP pain score 7-10 02/18/20 17:15 02/25/20 17:14 Ondansetron HCl (Zofran) 4 mg Q6H PRN IVP Nausea & Vomiting 02/18/20 17:15 03/19/20 17:14 Piperacillin Sod/ Tazobactam Sod 3.375 gm/Sodium Chloride 110 ml @ 27.5 mls/hr EVERY 8 HOURS IVPB 02/18/20 22:00 02/25/20 21:59 02/23/20 06:06 Potassium Phosphate 250 ml @ 62.5 mls/hr Q4H IVPB 02/23/20 15:00 02/23/20 22:59 Potassium Chloride 100 ml @ 100 mls/hr Q1H IVPB 02/23/20 10:00 02/23/20 11:59 02/23/20 11:17 Promethazine HCl 50 mg/Sodium Chloride 111 ml @ 222 mls/hr Q6H PRN IVPB for dizziness 02/20/20 20:45 03/21/20 20:44 02/20/20 21:42 Assessment/Plan Assessment/Plan IMPRESSION: 1. S/p laparotomy 2. Severe hypokalemia. Corrected 3. Hypertension. 4. Diuretic use. DISCUSSION: Replaced potassium. S/P laparotomy I will continue to follow carefully. Await return of bowel fxn Horacio Zacarias M.D. Horacio Zacarias MD Feb 23, 2020 11:50
[2020-02-23 12:00] VITALS: BP 135/76
--- NOTE | 2020-02-23 12:09 | Cardiac Electrophysiology PN ---
Assessment/Plan Assessment/Plan 1. Nonsustained VT 5 beats and Palpitations. Correct hypokalemia. Echo EF 55% 2. Bowel obstruction. S/P ex lap, left colectomy, mobilization of splenic flexure by Dr Brito Still NPO 3. Hypokalemia. being replaced with iv K and Mg 4. PVCs and dizziness DW RN Subjective Subjective Feeling better. Had 5 beats of VT 02/21/20. No more VT. HR goes at times to more than 140s in sinus tach with activity. NPO Objective Last 24 Hour Vital Signs Date Time Temp Pulse Resp B/P (MAP) Pulse Ox O2 Delivery O2 Flow Rate FiO2 02/23/20 08:28 Room Air 02/23/20 08:00 114 02/23/20 08:00 97.7 125 20 139/74 (95) 96 02/23/20 04:00 96.8 118 20 136/89 (105) 96 02/23/20 04:00 118 02/23/20 00:00 96.8 111 20 130/85 (100) 97 02/23/20 00:00 111 02/22/20 21:00 Room Air 02/22/20 20:00 122 02/22/20 20:00 98.5 122 22 131/82 (98) 97 02/22/20 19:17 96 Nasal Cannula 2.0 28 02/22/20 16:00 110 02/22/20 16:00 97.9 115 20 133/77 (95) 100 Intake and Output 02/22/20 02/23/20 19:00 07:00 Output Total 250 ml 300 ml Balance -250 ml -300 ml Output Urine Total 250 ml 300 ml Laboratory Tests Test 02/23/20 05:40 White Blood Count 7.7 K/UL (4.8-10.8) Red Blood Count 2.92 M/UL (4.20-5.40) L Hemoglobin 8.2 G/DL (12.0-16.0) L Hematocrit 25.3 % (37.0-47.0) L Mean Corpuscular Volume 86 FL (80-99) Mean Corpuscular Hemoglobin 28.2 PG (27.0-31.0) Mean Corpuscular Hemoglobin Concent 32.6 G/DL (32.0-36.0) Red Cell Distribution Width 14.5 % (11.6-14.8) Platelet Count 93 K/UL (150-450) L Mean Platelet Volume 8.1 FL (6.5-10.1) Neutrophils (%) (Auto) % (45.0-75.0) Lymphocytes (%) (Auto) % (20.0-45.0) Monocytes (%) (Auto) % (1.0-10.0) Eosinophils (%) (Auto) % (0.0-3.0) Basophils (%) (Auto) % (0.0-2.0) Differential Total Cells Counted 100 Neutrophils % (Manual) 86 % (45-75) H Lymphocytes % (Manual) 10 % (20-45) L Monocytes % (Manual) 2 % (1-10) Eosinophils % (Manual) 0 % (0-3) Basophils % (Manual) 0 % (0-2) Band Neutrophils 2 % (0-8) Nucleated Red Blood Cells 1 /100 WBC Platelet Estimate Decreased L Platelet Morphology Normal Acanthocytes 1+ Schistocytes 1+ Erythrocyte Sedimentation Rate 35 MM/HR (0-30) H Prothrombin Time 14.3 SEC (9.30-11.50) H Prothromb Time International Ratio 1.3 (0.9-1.1) H Activated Partial Thromboplast Time 35 SEC (23-33) H Sodium Level 142 MMOL/L (136-145) # Potassium Level 3.2 MMOL/L (3.5-5.1) L Chloride Level 107 MMOL/L (98-107) Carbon Dioxide Level 24 MMOL/L (21-32) Anion Gap 11 mmol/L (5-15) Blood Urea Nitrogen 10 mg/dL (7-18) Creatinine 1.0 MG/DL (0.55-1.30) Estimat Glomerular Filtration Rate 55.5 mL/min (>60) Glucose Level 193 MG/DL (74-106) H Lactic Acid Level 5.80 mmol/L (0.4-2.0) H Calcium Level 7.0 MG/DL (8.5-10.1) L Phosphorus Level 1.0 MG/DL (2.5-4.9) L Magnesium Level 1.5 MG/DL (1.8-2.4) L Total Bilirubin 0.6 MG/DL (0.2-1.0) Aspartate Amino Transf (AST/SGOT) 36 U/L (15-37) Alanine Aminotransferase (ALT/SGPT) 27 U/L (12-78) Alkaline Phosphatase 83 U/L (46-116) C-Reactive Protein, Quantitative 13.6 mg/dL (0.00-0.90) H Total Protein 4.3 G/DL (6.4-8.2) L Albumin 1.5 G/DL (3.4-5.0) L Globulin 2.8 g/dL Albumin/Globulin Ratio 0.5 (1.0-2.7) L Amylase Level 54 U/L (25-115) Lipase 282 U/L (73-393) Objective HEENT: No JVD Cardiovascular: RSR. No GRM Respiratory: clear Abdomen: soft, distended, non-tender. Jessica intact with no drain Extremities: no edema, no tenderness, no cyanosis Peter Quintana MD Feb 23, 2020 12:09
--- NOTE | 2020-02-23 12:11 | NUR ---
RD ASSESSMENT & RECOMMENDATIONS SEE CARE ACTIVITY FOR COMPLETE ASSESSMENT DAILY ESTIMATED NEEDS: Needs based on GI, cardiac, surgery 50.4kg 25-30 kcals/kg 1992-5569 total kcals 1-2 g protein/kg 50-100 g total protein 25-30 mL/kg 1193-5355 total fluid mLs NUTRITION DIAGNOSIS: Altered GI fxn r/t bowel obstruction as evidenced by CT scan, last bm unknown, adm w/ distended abdomen, N/V w/ recent poor po intake, s/p ex lap, left colectomy and partial omentectomy, currently NPO, day 8. CURRENT DIET: NPO, okay for ice chips (NPO DAY 8) PO DIET RECOMMENDATIONS: Initiate diet per surgeon PARENTERAL NUTRITION RECOMMENDATIONS: RECOMMEND TPN DUE TO PROLONGED NPO STATUS. CONSULT RD IF PT IS TO START TPN ADDITIONAL RECOMMENDATIONS: 1) Monitor NPO status (Day 8, POD #5) -> RECOMMEND TPN DUE TO PROLONGED NPO STATUS 2) Monitor lytes, replete as needed-> low K, phos, mag 3) Continue added D5 IVF while NPO to prevent hypoglycemia 4) Calibrated bedscale wt .
--- NOTE | 2020-02-23 12:12 | Cardiac Electrophysiology PN ---
Assessment/Plan Assessment/Plan 1. Nonsustained VT 5 beats and Palpitations. Correct hypokalemia. Echo EF 55%. Start iv Metoprolol 2. Sinus tach Start Metoprolol 2.5 mg ivpb q 12 hr 3. Bowel obstruction. S/P ex lap, left colectomy, mobilization of splenic flexure by Dr Brito Still NPO 4. Hypokalemia. being replaced with iv K and Mg 5. PVCs and dizziness DW RN Subjective Subjective Feeling better. Had 5 beats of VT 02/21/20. No more VT. HR goes at times to more than 140s in sinus tach with activity. NPO Objective Last 24 Hour Vital Signs Date Time Temp Pulse Resp B/P (MAP) Pulse Ox O2 Delivery O2 Flow Rate FiO2 02/23/20 08:28 Room Air 02/23/20 08:00 114 02/23/20 08:00 97.7 125 20 139/74 (95) 96 02/23/20 04:00 96.8 118 20 136/89 (105) 96 02/23/20 04:00 118 02/23/20 00:00 96.8 111 20 130/85 (100) 97 02/23/20 00:00 111 02/22/20 21:00 Room Air 02/22/20 20:00 122 02/22/20 20:00 98.5 122 22 131/82 (98) 97 02/22/20 19:17 96 Nasal Cannula 2.0 28 02/22/20 16:00 110 02/22/20 16:00 97.9 115 20 133/77 (95) 100 Intake and Output 02/22/20 02/23/20 19:00 07:00 Output Total 250 ml 300 ml Balance -250 ml -300 ml Output Urine Total 250 ml 300 ml Laboratory Tests Test 02/23/20 05:40 White Blood Count 7.7 K/UL (4.8-10.8) Red Blood Count 2.92 M/UL (4.20-5.40) L Hemoglobin 8.2 G/DL (12.0-16.0) L Hematocrit 25.3 % (37.0-47.0) L Mean Corpuscular Volume 86 FL (80-99) Mean Corpuscular Hemoglobin 28.2 PG (27.0-31.0) Mean Corpuscular Hemoglobin Concent 32.6 G/DL (32.0-36.0) Red Cell Distribution Width 14.5 % (11.6-14.8) Platelet Count 93 K/UL (150-450) L Mean Platelet Volume 8.1 FL (6.5-10.1) Neutrophils (%) (Auto) % (45.0-75.0) Lymphocytes (%) (Auto) % (20.0-45.0) Monocytes (%) (Auto) % (1.0-10.0) Eosinophils (%) (Auto) % (0.0-3.0) Basophils (%) (Auto) % (0.0-2.0) Differential Total Cells Counted 100 Neutrophils % (Manual) 86 % (45-75) H Lymphocytes % (Manual) 10 % (20-45) L Monocytes % (Manual) 2 % (1-10) Eosinophils % (Manual) 0 % (0-3) Basophils % (Manual) 0 % (0-2) Band Neutrophils 2 % (0-8) Nucleated Red Blood Cells 1 /100 WBC Platelet Estimate Decreased L Platelet Morphology Normal Acanthocytes 1+ Schistocytes 1+ Erythrocyte Sedimentation Rate 35 MM/HR (0-30) H Prothrombin Time 14.3 SEC (9.30-11.50) H Prothromb Time International Ratio 1.3 (0.9-1.1) H Activated Partial Thromboplast Time 35 SEC (23-33) H Sodium Level 142 MMOL/L (136-145) # Potassium Level 3.2 MMOL/L (3.5-5.1) L Chloride Level 107 MMOL/L (98-107) Carbon Dioxide Level 24 MMOL/L (21-32) Anion Gap 11 mmol/L (5-15) Blood Urea Nitrogen 10 mg/dL (7-18) Creatinine 1.0 MG/DL (0.55-1.30) Estimat Glomerular Filtration Rate 55.5 mL/min (>60) Glucose Level 193 MG/DL (74-106) H Lactic Acid Level 5.80 mmol/L (0.4-2.0) H Calcium Level 7.0 MG/DL (8.5-10.1) L Phosphorus Level 1.0 MG/DL (2.5-4.9) L Magnesium Level 1.5 MG/DL (1.8-2.4) L Total Bilirubin 0.6 MG/DL (0.2-1.0) Aspartate Amino Transf (AST/SGOT) 36 U/L (15-37) Alanine Aminotransferase (ALT/SGPT) 27 U/L (12-78) Alkaline Phosphatase 83 U/L (46-116) C-Reactive Protein, Quantitative 13.6 mg/dL (0.00-0.90) H Total Protein 4.3 G/DL (6.4-8.2) L Albumin 1.5 G/DL (3.4-5.0) L Globulin 2.8 g/dL Albumin/Globulin Ratio 0.5 (1.0-2.7) L Amylase Level 54 U/L (25-115) Lipase 282 U/L (73-393) Objective HEENT: No JVD Cardiovascular: RSR. No GRM Respiratory: clear Abdomen: soft, distended, non-tender. Jessica intact with no drain Extremities: no edema, no tenderness, no cyanosis Peter Quintana MD Feb 23, 2020 12:12
--- NOTE | 2020-02-23 13:22 | NUR ---
CASE MANAGEMENT:REVIEW 02/23/20 SI: POD #5 S/P LEFT COLECTOMY. OMENTECTOMY 97.4 125 20 139/74 96% ON RA H/H-8.2/25.3 PLT-93 IS: IV METOPROLOL Q12 IV K-PHOS Q4HRS X2 BAGS IV MAG SULFATE Q1HRS X4HRS IV ZOSYN Q8HRS IV FLAGYL Q8HRS IVF@150/HR HEPARIN SQ Q8HRS : TELEMETRY STATUS DCP: PATIENT IS FROM HOME PLAN: REMAINS NPO
--- NOTE | 2020-02-23 15:30 | Surgery Progress Note ---
Surgery Progress Note Subjective Procedure Performed ex lap left colectomy mobilization of splenic flexure omentectomy primary anastomosis Additional Comments afebrile remains tachy wbc nml shift improved esr improved lactic acid kub noted Objective Last 24 Hour Vital Signs Date Time Temp Pulse Resp B/P (MAP) Pulse Ox O2 Delivery O2 Flow Rate FiO2 02/23/20 12:00 108 02/23/20 12:00 97.4 112 20 135/76 (95) 99 02/23/20 08:28 Room Air 02/23/20 08:00 114 02/23/20 08:00 97.7 125 20 139/74 (95) 96 02/23/20 04:00 96.8 118 20 136/89 (105) 96 02/23/20 04:00 118 02/23/20 00:00 96.8 111 20 130/85 (100) 97 02/23/20 00:00 111 02/22/20 21:00 Room Air 02/22/20 20:00 122 02/22/20 20:00 98.5 122 22 131/82 (98) 97 02/22/20 19:17 96 Nasal Cannula 2.0 28 02/22/20 16:00 110 02/22/20 16:00 97.9 115 20 133/77 (95) 100 I&O Intake and Output 02/22/20 02/23/20 19:00 07:00 Output Total 250 ml 300 ml Balance -250 ml -300 ml Output Urine Total 250 ml 300 ml Dressing: dry Wound: clean Cardiovascular: RSR Respiratory: clear Abdomen: soft, distended, non-tender, decreased bowel sounds Extremities: no edema, no tenderness, no cyanosis Laboratory Tests Test 02/23/20 05:40 White Blood Count 7.7 K/UL (4.8-10.8) Red Blood Count 2.92 M/UL (4.20-5.40) L Hemoglobin 8.2 G/DL (12.0-16.0) L Hematocrit 25.3 % (37.0-47.0) L Mean Corpuscular Volume 86 FL (80-99) Mean Corpuscular Hemoglobin 28.2 PG (27.0-31.0) Mean Corpuscular Hemoglobin Concent 32.6 G/DL (32.0-36.0) Red Cell Distribution Width 14.5 % (11.6-14.8) Platelet Count 93 K/UL (150-450) L Mean Platelet Volume 8.1 FL (6.5-10.1) Neutrophils (%) (Auto) % (45.0-75.0) Lymphocytes (%) (Auto) % (20.0-45.0) Monocytes (%) (Auto) % (1.0-10.0) Eosinophils (%) (Auto) % (0.0-3.0) Basophils (%) (Auto) % (0.0-2.0) Differential Total Cells Counted 100 Neutrophils % (Manual) 86 % (45-75) H Lymphocytes % (Manual) 10 % (20-45) L Monocytes % (Manual) 2 % (1-10) Eosinophils % (Manual) 0 % (0-3) Basophils % (Manual) 0 % (0-2) Band Neutrophils 2 % (0-8) Nucleated Red Blood Cells 1 /100 WBC Platelet Estimate Decreased L Platelet Morphology Normal Acanthocytes 1+ Schistocytes 1+ Erythrocyte Sedimentation Rate 35 MM/HR (0-30) H Prothrombin Time 14.3 SEC (9.30-11.50) H Prothromb Time International Ratio 1.3 (0.9-1.1) H Activated Partial Thromboplast Time 35 SEC (23-33) H Sodium Level 142 MMOL/L (136-145) # Potassium Level 3.2 MMOL/L (3.5-5.1) L Chloride Level 107 MMOL/L (98-107) Carbon Dioxide Level 24 MMOL/L (21-32) Anion Gap 11 mmol/L (5-15) Blood Urea Nitrogen 10 mg/dL (7-18) Creatinine 1.0 MG/DL (0.55-1.30) Estimat Glomerular Filtration Rate 55.5 mL/min (>60) Glucose Level 193 MG/DL (74-106) H Lactic Acid Level 5.80 mmol/L (0.4-2.0) H Calcium Level 7.0 MG/DL (8.5-10.1) L Phosphorus Level 1.0 MG/DL (2.5-4.9) L Magnesium Level 1.5 MG/DL (1.8-2.4) L Total Bilirubin 0.6 MG/DL (0.2-1.0) Aspartate Amino Transf (AST/SGOT) 36 U/L (15-37) Alanine Aminotransferase (ALT/SGPT) 27 U/L (12-78) Alkaline Phosphatase 83 U/L (46-116) C-Reactive Protein, Quantitative 13.6 mg/dL (0.00-0.90) H Total Protein 4.3 G/DL (6.4-8.2) L Albumin 1.5 G/DL (3.4-5.0) L Globulin 2.8 g/dL Albumin/Globulin Ratio 0.5 (1.0-2.7) L Amylase Level 54 U/L (25-115) Lipase 282 U/L (73-393) Plan Problems: (1) Lightheaded (2) Hypokalemia (3) Large bowel obstruction Assessment & Plan: 64-year-old female with abdominal distention potential large bowel obstruction. Afebrile, hemodynamic stable, labs noted no leukocytosis no pain no bleeding. No prior abdominal surgeries. Nausea and emesis clear liquid. Decreased appetite. Cannot recall last flatus or BM. CT as below. No direct mass or abnormality identified but there is absolutely identifiable transition at the rectosigmoid area with proximal dilatation. A colonoscopy is warranted but though would be with definitive risk of potential perforation. GI consult pending. Replace electrolytes. N.p.o. IV fluids will await scope for findings. Conceivably may require surgical intervention. Thank you for let me participate in patient's care will follow with recommendations GI consider for scope 02/17 will be available for surgery in case of emergency high risk for perforation or complication and understands. but strongly recommend scope prior to surgery for etiology purposes. s/p ex lap. see op report recovering okay to downgrade to tele npo okay for ice chips iv fluids abx tomas to stay in until ambulatory heparin petechia plt down hold heparin scds cont abx trend labs trial liquid diet There are several circumscribed low-density nonenhancing cysts noted in the liver. The spleen is homogeneous. Gallbladder is without sludge or stone and there is no wall thickening. The pancreas is unremarkable. Adrenals are normal in morphology. The kidneys are normal in size, shape and axis. Small bowel loops are nondistended. The dominant abnormality is severe colonic distention containing air-fluid levels and stool debris. Dilated colon extends down to the rectosigmoid junction where there is an apparent transition. The rectal vault is nondistended with only a small amount of stool. No definite discernible mass is detected there is There is no free fluid or free air. No pathologic adenopathy demonstrated. Bladder is empty. There is no suspicious superficial soft tissue or osseous abnormality. IMPRESSION: SEVERE COLONIC DISTENTION WITH AIR-FLUID LEVELS AND STOOL DEBRIS. THERE IS APPARENT TRANSITION AT THE RECTOSIGMOID JUNCTION WITH A RELATIVELY EMPTY RECTAL VAULT WITH ONLY SMALL AMOUNT OF STOOL. NO DEFINITE DISCERNIBLE MASS AT THE TRANSITION POINT. RECOMMEND GI CONSULTATION AND CONSIDER COLONOSCOPY. Swapnil Brito Feb 23, 2020 15:30
[2020-02-23] MEDS: Potassium Phosphate 15mm/250ml 250 ML IVPB SCH ×2 (15:32→22:11)
--- NOTE | 2020-02-23 15:33 | Diagnostic Imaging Report ---
Indication: Abdominal pain Technique: Supine view of the abdomen Comparison: 02/18/2020 Findings: There is a lower abdominal and upper pelvic mid abdominal staple line. There is evidence of pneumoperitoneum. Dilated bowel loops are demonstrated, especially in the left upper quadrant; uncertain as to whether this is dilated stomach or colon. There is a Leiva catheter. Impression: Pneumoperitoneum, most likely postoperative given history of recent surgery although gas is fairly abundant. Dilated bowel loops, the anatomy of which is somewhat unclear, probably residual functionally dilated colon related to the recent surgery. Gastric distention also possible. Findings discussed by phone with Dr. Brito at the time of interpretation
[2020-02-23 16:00] VITALS: BP 129/83
--- NOTE | 2020-02-23 18:59 | NUR ---
NURSE HAND-OFF REPORT: Important Events on Shift:[IV K, IV Mg, IV K/P, 1 L NS, clear liquid diet, phys therapy] Patient Status: [stable, FULL CODE] Diet: [clears] Pending Orders: [] Pending Results/Labs:[] Pending MD notification:[] Latest Vital Signs: Temperature 97.5 , Pulse 115 , B/P 129 /83 , Respiratory Rate 20 , O2 SAT 97 , Room Air, O2 Flow Rate 2.0 . Vital Sign Comment: [] EKG Rhythm: Sinus Tachycardia Rhythm change?: N MD Notified?: N - MD Response: Latest Scherer Fall Score: 20 Fall Risk: Low Risk Safety Measures: Call light Within Reach, Bed Alarm Zone 1, Side Rails Side Rails x2, Bed position Low and Locked. Fall Precautions: Patient Fall Education Report given to [Johana GARZON].
--- NOTE | 2020-02-23 19:00 | NUR ---
NURSE NOTES: Patient received from RYANN Reese. Patient is currently sleeping in bed and is on room air. Currently not showing any sign of acute distress. SCD device and prophylactic foam attached on bilateral heels. Patient arms and legs are showing redness and petechiae, surgical site is dry and intact. Leiva is patent and running. IV site on right forearm 24 gauge and left hand 22 gauge is patent and running. Bed is in the lowest position, call light within reach. Will continue to monitor.
[2020-02-23 19:39] LABS: ANION GAP 13 mmol/L (5-15); BLOOD UREA NITROGEN 9 mg/dL (7-18); CALCIUM 6.3 MG/DL (8.5-10.1); CARBON DIOXIDE 22 MMOL/L (21-32); CHLORIDE 104 MMOL/L (98-107); CREATININE 0.8 MG/DL (0.55-1.30); POTASSIUM 2.9 MMOL/L (3.5-5.1); SODIUM 139 MMOL/L (136-145)
[2020-02-23 20:00] VITALS: BP 115/65
[2020-02-23] MEDS: Metoprolol Tartrate 2.5 MG in D5W 55 ML IVPB SCH (22:12)
[2020-02-23] MEDS ORDERED: Tubing IV Secondary IV ONE (22:41)
[2020-02-23] MEDS ORDERED: NS 275ml ONE (22:41)
[2020-02-24] VITALS: BP 116/80
--- NOTE | 2020-02-24 00:55 | NUR ---
NURSE NOTES: Called Dr. Arnett to inform him that patient's lactic acid level is 6.10. Received order for 1L NS bolus. Noted and carried out.
--- NOTE | 2020-02-24 01:05 | NUR ---
NURSE NOTES: Unable to scan NS bag. RYANN Sin witnessed administration of 1L NS bolus.
[2020-02-24] MEDS: Piperacillin/Tazobactam 3.375 GM in NS 110 ML IVPB SCH (03:02)
[2020-02-24] MEDS: D5W w/KCl 20mEq 1,000 ML IV SCH ×2 (03:14→06:30)
[2020-02-24 04:00] VITALS: BP 124/89
[2020-02-24] MEDS: Heparin 5000 units/ml inj SUBQ SCH ×2 (05:43→13:47)
--- NOTE | 2020-02-24 07:58 | NUR ---
NURSE HAND-OFF REPORT: Important Events on Shift:[Patient lactic acid of 6.[address] Arnett] Patient Status: [] Diet: [clear liquid diet] Pending Orders: [] Pending Results/Labs:[] Pending MD notification:[] Latest Vital Signs: Temperature 97.2 , Pulse 99 , B/P 124 /89 , Respiratory Rate 19 , O2 SAT 94 , Room Air, O2 Flow Rate 2.0 . Vital Sign Comment: [] EKG Rhythm: Sinus Tachycardia Rhythm change?: N MD Notified?: N - MD Response: Latest Scherer Fall Score: 20 Fall Risk: Low Risk Safety Measures: Call light Within Reach, Bed Alarm Zone 1, Side Rails Side Rails x2, Bed position Low and Locked. Fall Precautions: Yellow Socks Yellow Gown Patient Fall Education Report given to [RYANN Foy].
[2020-02-24 08:00] VITALS: BP 126/87
[2020-02-24] MEDS ORDERED: Piperacillin/Tazobactam 3.375 GM in NS 110 ML IVPB SCH (08:00)
--- NOTE | 2020-02-24 08:00 | NUR ---
NURSE NOTES: Received report from RYANN Pandya and RYANN Sin. Observed pt sleeping, no s/sx of acute distress, breathing even and unlabored in RA. BLE noted to be edematous. IV sites patent and asymptomatic. Surgery site on abdomen is dry, no s/sx of bleeding or infection. Bed on lowest position, call light within reach. Will continue plan of care.
[2020-02-24 08:18] LABS: HEMATOCRIT 22.4 % (37.0-47.0); HEMOGLOBIN 7.9 G/DL (12.0-16.0); MEAN CORPUSCULAR VOLUME 85 FL (80-99); PLATELET COUNT 49 K/UL (150-450); RED BLOOD COUNT 2.64 M/UL (4.20-5.40); RED CELL DISTRIBUTION WIDTH 14.1 % (11.6-14.8); WHITE BLOOD COUNT 5.2 K/UL (4.8-10.8)
[2020-02-24 08:33] LABS: ALANINE AMINOTRANSFERASE 24 U/L (12-78); ALBUMIN 1.3 G/DL (3.4-5.0); ALBUMIN/GLOBULIN RATIO 0.6 (1.0-2.7); ALKALINE PHOSPHATASE 66 U/L (46-116); ANION GAP 13 mmol/L (5-15); ASPARTATE AMINO TRANSFERASE 28 U/L (15-37); BILIRUBIN,TOTAL 0.4 MG/DL (0.2-1.0); BLOOD UREA NITROGEN 8 mg/dL (7-18); CARBON DIOXIDE 20 MMOL/L (21-32); CHLORIDE 101 MMOL/L (98-107); CREATININE 0.8 MG/DL (0.55-1.30); PHOSPHORUS 1.7 MG/DL (2.5-4.9); SODIUM 134 MMOL/L (136-145)
[2020-02-24] MEDS: Metoprolol Tartrate 2.5 MG in D5W 55 ML IVPB SCH (08:59)
[2020-02-24 09:14] LABS: POTASSIUM 2.4 MMOL/L (3.5-5.1)
[2020-02-24 09:15] LABS: CALCIUM 5.8 MG/DL (8.5-10.1)
--- NOTE | 2020-02-24 10:03 | Cardiac Electrophysiology PN ---
Assessment/Plan Assessment/Plan 1. Nonsustained VT 5 beats and Palpitations. Correct hypokalemia. Echo EF 55%.Change iv Metoprolol to 25 po bid 2. Sinus tach Change Metoprolol 2.5 mg ivpb q 12 hr to 25 po bid 3. Bowel obstruction. S/P ex lap, left colectomy, mobilization of splenic flexure by Dr Brito, On Clear liquid diet 4. Hypokalemia. being replaced with iv K and Mg 5. PVCs and dizziness DW RN Subjective Subjective Had 5 beats of VT 02/21/20. No more VT. HR goes at times to more than 140s in sinus tach with activity.On Clear Liquid diet. Objective Last 24 Hour Vital Signs Date Time Temp Pulse Resp B/P (MAP) Pulse Ox O2 Delivery O2 Flow Rate FiO2 02/24/20 08:59 104 126/87 02/24/20 08:00 97.2 104 18 126/87 (100) 95 02/24/20 04:00 99 02/24/20 04:00 97.2 19 124/89 (101) 94 02/24/20 00:00 109 02/24/20 00:00 98.1 107 19 116/80 (92) 97 02/23/20 22:12 116 121/90 02/23/20 21:00 Room Air 2.0 02/23/20 20:06 96 Room Air 21 02/23/20 20:00 97.7 129 20 115/65 (82) 96 02/23/20 20:00 128 02/23/20 16:00 97.5 124 20 129/83 (98) 97 02/23/20 16:00 115 02/23/20 12:00 108 02/23/20 12:00 97.4 112 20 135/76 (95) 99 Intake and Output 02/23/20 02/24/20 19:00 07:00 Intake Total 212.5 ml 2775.1 ml Output Total 2000 ml 500 ml Balance -1787.5 ml 2275.1 ml Intake IV Total 212.5 ml 2775.1 ml Output Urine Total 2000 ml 500 ml # Voids 1 Laboratory Tests Test 02/23/20 18:25 02/23/20 22:45 02/24/20 08:00 Sodium Level 139 MMOL/L (136-145) 134 MMOL/L (136-145) L Potassium Level 2.9 MMOL/L (3.5-5.1) L 2.4 MMOL/L (3.5-5.1) *L Chloride Level 104 MMOL/L (98-107) 101 MMOL/L (98-107) Carbon Dioxide Level 22 MMOL/L (21-32) 20 MMOL/L (21-32) L Anion Gap 13 mmol/L (5-15) 13 mmol/L (5-15) Blood Urea Nitrogen 9 mg/dL (7-18) 8 mg/dL (7-18) Creatinine 0.8 MG/DL (0.55-1.30) 0.8 MG/DL (0.55-1.30) Estimat Glomerular Filtration Rate > 60 mL/min (>60) > 60 mL/min (>60) Glucose Level 133 MG/DL (74-106) H 146 MG/DL (74-106) H Lactic Acid Level 7.10 mmol/L (0.4-2.0) H 6.10 mmol/L (0.66-2.22) H 5.60 mmol/L (0.4-2.0) H Calcium Level 6.3 MG/DL (8.5-10.1) L 5.8 MG/DL (8.5-10.1) *L White Blood Count 5.2 K/UL (4.8-10.8) Red Blood Count 2.64 M/UL (4.20-5.40) L Hemoglobin 7.9 G/DL (12.0-16.0) L Hematocrit 22.4 % (37.0-47.0) L Mean Corpuscular Volume 85 FL (80-99) Mean Corpuscular Hemoglobin 29.8 PG (27.0-31.0) Mean Corpuscular Hemoglobin Concent 35.1 G/DL (32.0-36.0) Red Cell Distribution Width 14.1 % (11.6-14.8) Platelet Count 49 K/UL (150-450) L Mean Platelet Volume 9.0 FL (6.5-10.1) Neutrophils (%) (Auto) % (45.0-75.0) Lymphocytes (%) (Auto) % (20.0-45.0) Monocytes (%) (Auto) % (1.0-10.0) Eosinophils (%) (Auto) % (0.0-3.0) Basophils (%) (Auto) % (0.0-2.0) Differential Total Cells Counted 100 Neutrophils % (Manual) 78 % (45-75) H Lymphocytes % (Manual) 20 % (20-45) Monocytes % (Manual) 2 % (1-10) Eosinophils % (Manual) 0 % (0-3) Basophils % (Manual) 0 % (0-2) Band Neutrophils 0 % (0-8) Platelet Estimate Decreased L Platelet Morphology Normal Anisocytosis 1+ Phosphorus Level 1.7 MG/DL (2.5-4.9) L Total Bilirubin 0.4 MG/DL (0.2-1.0) Aspartate Amino Transf (AST/SGOT) 28 U/L (15-37) Alanine Aminotransferase (ALT/SGPT) 24 U/L (12-78) Alkaline Phosphatase 66 U/L (46-116) Total Protein 3.3 G/DL (6.4-8.2) L Albumin 1.3 G/DL (3.4-5.0) L Globulin 2.0 g/dL Albumin/Globulin Ratio 0.6 (1.0-2.7) L Objective HEENT: No JVD Cardiovascular: RSR. No GRM Respiratory: clear Abdomen: soft, distended, non-tender. Clymer intact with no drain Extremities: no edema, no tenderness, no cyanosis Peter Quintana MD Feb 24, 2020 10:03
--- NOTE | 2020-02-24 10:13 | Nephrology Progress Note ---
Assessment/Plan Plan #Severe hypokalemia #Abdominal distention - bowel obstruction due to colonic mass #htn #Dehydration #HLD - s/p resection POD #4 - monitor lactic acidic level - replete K, elvi mag - calcitriol 1mcg x1 - check vitamin D level - IVF- switch to D5NS + 40 kcl - replete K, mag and phos - on CLD - monitor lytes - avoid nephrotoxins - gen surg eval Subjective ROS Limited/Unobtainable: No Constitutional: Reports: weakness HEENT: Denies: no symptoms, eye pain, blurred vision, tearing, double vision, ear pain, ear discharge, nose pain, nose congestion, throat pain, throat swelling, mouth pain, mouth swelling, other Genitourinary: Denies: no symptoms, burning, discharge, frequency, flank pain, hematuria, incontinence, pain, urgency, other Neurologic/Psychiatric: Denies: no symptoms, anxiety, depressed, emotional problems, headache, numbness, paresthesia, pre-existing deficit, seizure, tingling, tremors, weakness, other Subjective s/p resection POD #4 lytes low + lactic acidosis Objective Objective Last 24 Hour Vital Signs Date Time Temp Pulse Resp B/P (MAP) Pulse Ox O2 Delivery O2 Flow Rate FiO2 02/24/20 08:59 104 126/87 02/24/20 08:00 97.2 104 18 126/87 (100) 95 02/24/20 04:00 99 02/24/20 04:00 97.2 19 124/89 (101) 94 02/24/20 00:00 109 02/24/20 00:00 98.1 107 19 116/80 (92) 97 02/23/20 22:12 116 121/90 02/23/20 21:00 Room Air 2.0 02/23/20 20:06 96 Room Air 21 02/23/20 20:00 97.7 129 20 115/65 (82) 96 02/23/20 20:00 128 02/23/20 16:00 97.5 124 20 129/83 (98) 97 02/23/20 16:00 115 02/23/20 12:00 108 02/23/20 12:00 97.4 112 20 135/76 (95) 99 Intake and Output 02/23/20 02/24/20 19:00 07:00 Intake Total 212.5 ml 2775.1 ml Output Total 2000 ml 500 ml Balance -1787.5 ml 2275.1 ml Intake IV Total 212.5 ml 2775.1 ml Output Urine Total 2000 ml 500 ml # Voids 1 Laboratory Tests 02/23/20 18:25: Sodium Level 139, Potassium Level 2.9L, Chloride Level 104, Carbon Dioxide Level 22, Anion Gap 13, Blood Urea Nitrogen 9, Creatinine 0.8, Estimat Glomerular Filtration Rate > 60, Glucose Level 133H, Lactic Acid Level 7.10H, Calcium Level 6.3L 02/23/20 22:45: Lactic Acid Level 6.10H 02/24/20 08:00: Sodium Level 134L, Potassium Level 2.4*L, Chloride Level 101, Carbon Dioxide Level 20L, Anion Gap 13, Blood Urea Nitrogen 8, Creatinine 0.8, Estimat Glomerul ar Filtration Rate > 60, Glucose Level 146H, Lactic Acid Level 5.60H, Calcium Level 5.8*L, White Blood Count 5.2, Red Blood Count 2.64L, Hemoglobin 7.9L, Hematocrit 22.4L, Mean Corpuscular Volume 85, Mean Corpuscular Hemoglobin 29.8, Mean Corpuscular Hemoglobin Concent 35.1, Red Cell Distribution Width 14.1, Platelet Count 49L, Mean Platelet Volume 9.0, Neutrophils (%) (Auto) , Lymphocytes (%) (Auto) , Monocytes (%) (Auto) , Eosinophils (%) (Auto) , Basophils (%) (Auto) , Differential Total Cells Counted 100, Neutrophils % (Manual) 78H, Lymphocytes % (Manual) 20, Monocytes % (Manual) 2, Eosinophils % (Manual) 0, Basophils % (Manual) 0, Band Neutrophils 0, Platelet Estimate DecreasedL, Platelet Morphology Normal, Anisocytosis 1+, Phosphorus Level 1.7L, Total Bilirubin 0.4, Aspartate Amino Transf (AST/SGOT) 28, Alanine Aminotransferase (ALT/SGPT) 24, Alkaline Phosphatase 66, Total Protein 3.3L, Albumin 1.3L, Globulin 2.0, Albumin/Globulin Ratio 0.6L Height (Feet): 5 Height (Inches): 4.00 Weight (Pounds): 113 Yakelin Arnett M.D. Feb 24, 2020 10:13
--- NOTE | 2020-02-24 10:32 | Pulmonology Progress Note ---
Subjective ROS Limited/Unobtainable: No Interval Events: S/p colectomy Constitutional: Reports: no symptoms HEENT: Repors: no symptoms Respiratory: Reports: no symptoms Cardiovascular: Reports: no symptoms Gastrointestinal/Abdominal: Reports: constipation, bloating Genitourinary: Reports: no symptoms Allergies: Coded Allergies: No Known Allergies (Unverified , 02/15/20) Objective Last 24 Hour Vital Signs Date Time Temp Pulse Resp B/P (MAP) Pulse Ox O2 Delivery O2 Flow Rate FiO2 02/24/20 08:59 104 126/87 02/24/20 08:00 97.2 104 18 126/87 (100) 95 02/24/20 04:00 99 02/24/20 04:00 97.2 19 124/89 (101) 94 02/24/20 00:00 109 02/24/20 00:00 98.1 107 19 116/80 (92) 97 02/23/20 22:12 116 121/90 02/23/20 21:00 Room Air 2.0 02/23/20 20:06 96 Room Air 21 02/23/20 20:00 97.7 129 20 115/65 (82) 96 02/23/20 20:00 128 02/23/20 16:00 97.5 124 20 129/83 (98) 97 02/23/20 16:00 115 02/23/20 12:00 108 02/23/20 12:00 97.4 112 20 135/76 (95) 99 Intake and Output 02/23/20 02/24/20 19:00 07:00 Intake Total 212.5 ml 2775.1 ml Output Total 2000 ml 500 ml Balance -1787.5 ml 2275.1 ml Intake IV Total 212.5 ml 2775.1 ml Output Urine Total 2000 ml 500 ml # Voids 1 General Appearance: no acute distress HEENT: normocephalic Respiratory: chest wall non-tender, lungs clear Cardiovascular: normal peripheral pulses Abdomen: absent bowel sounds Laboratory Tests 02/23/20 18:25: Sodium Level 139, Potassium Level 2.9L, Chloride Level 104, Carbon Dioxide Level 22, Anion Gap 13, Blood Urea Nitrogen 9, Creatinine 0.8, Estimat Glomerular Filtration Rate > 60, Glucose Level 133H, Lactic Acid Level 7.10H, Calcium Level 6.3L 02/23/20 22:45: Lactic Acid Level 6.10H 02/24/20 08:00: Sodium Level 134L, Potassium Level 2.4*L, Chloride Level 101, Carbon Dioxide Level 20L, Anion Gap 13, Blood Urea Nitrogen 8, Creatinine 0.8, Estimat Glomerular Filtration Rate > 60, Glucose Level 146H, Lactic Acid Level 5.60H, Calcium Level 5.8*L, White Blood Count 5.2, Red Blood Count 2.64L, Hemoglobin 7.9L, Hematocrit 22.4L, Mean Corpuscular Volume 85, Mean Corpuscular Hemoglobin 29.8, Mean Corpuscular Hemoglobin Concent 35.1, Red Cell Distribution Width 14 .1, Platelet Count 49L, Mean Platelet Volume 9.0, Neutrophils (%) (Auto) , Lymphocytes (%) (Auto) , Monocytes (%) (Auto) , Eosinophils (%) (Auto) , Basophils (%) (Auto) , Differential Total Cells Counted 100, Neutrophils % ( Manual) 78H, Lymphocytes % (Manual) 20, Monocytes % (Manual) 2, Eosinophils % (Manual) 0, Basophils % (Manual) 0, Band Neutrophils 0, Platelet Estimate DecreasedL, Platelet Morphology Normal, Anisocytosis 1+, Phosphorus Level 1.7L, Total Bilirubin 0.4, Aspartate Amino Transf (AST/SGOT) 28, Alanine Aminotransferase (ALT/SGPT) 24, Alkaline Phosphatase 66, Total Protein 3.3L, Albumin 1.3L, Globulin 2.0, Albumin/Globulin Ratio 0.6L Current Medications Medications (Trade) Dose Ordered Sig/Fozia Route PRN Reason Start Time Stop Time Status Last Admin Dose Admin Acetaminophen (Tylenol) 650 mg Q6H PRN ORAL Mild Pain (Pain Scale 1-3) 02/18/20 17:15 03/19/20 17:14 Calcitriol (Calcijex) 1 mcg ONCE ONCE IV 02/24/20 11:00 02/24/20 11:01 Calcium Gluconate/ Sodium Chloride 50 ml @ 50 mls/hr Q1H IVPB 02/24/20 11:00 02/24/20 13:59 Dextrose/ Electrolytes 1,000 ml @ 100 mls/hr Q10H IV 02/24/20 11:00 03/25/20 10:59 Diphenhydramine HCl (Benadryl) 12.5 mg Q6H PRN IVP Itching/Pruritis 02/18/20 17:15 03/19/20 17:14 Heparin Sodium (Porcine) (Heparin 5000 units/ml) 5,000 units EVERY 8 HOURS SUBQ 02/19/20 22:00 04/04/20 21:59 Magnesium Sulfate 100 ml @ 100 mls/hr Q1H IVPB 02/24/20 10:15 02/24/20 13:14 02/24/20 10:26 Meclizine HCl (Antivert) 25 mg TID PRN ORAL for dizziness 02/20/20 20:30 03/21/20 20:29 Metoprolol Tartrate (Lopressor) 25 mg Q12HR ORAL 02/24/20 21:00 05/24/20 20:59 Metronidazole 100 ml @ 100 mls/hr Q8HR IVPB 02/20/20 14:00 02/27/20 13:59 02/24/20 05:40 Morphine Sulfate (Morphine Sulfate) 1 mg Q4H PRN IVP pain scale 1-3 02/18/20 17:15 02/25/20 17:14 Morphine Sulfate (Morphine Sulfate) 2 mg Q4H PRN IVP pain scale 4-6 02/18/20 17:15 02/25/20 17:14 02/18/20 21:16 Morphine Sulfate (Morphine Sulfate) 4 mg Q4H PRN IVP pain score 7-10 02/18/20 17:15 02/25/20 17:14 Ondansetron HCl (Zofran) 4 mg Q6H PRN IVP Nausea & Vomiting 02/18/20 17:15 03/19/20 17:14 Piperacillin Sod/ Tazobactam Sod 3.375 gm/Sodium Chloride 110 ml @ 27.5 mls/hr Q8H IVPB 02/24/20 08:00 03/02/20 07:59 02/24/20 08:58 Potassium Chloride 100 ml @ 100 mls/hr Q1HR IVPB 02/24/20 11:00 02/24/20 16:59 Promethazine HCl 50 mg/Sodium Chloride 111 ml @ 222 mls/hr Q6H PRN IVPB for dizziness 02/20/20 20:45 03/21/20 20:44 02/20/20 21:42 Assessment/Plan Assessment/Plan IMPRESSION: 1. S/p laparotomy 2. Severe hypokalemia. Corrected 3. Hypertension. 4. Diuretic use. DISCUSSION: Replaced potassium. S/P laparotomy I will continue to follow carefully. Await return of bowel fxn GI and renal following Hanna Cline Omar Syed MD Feb 24, 2020 10:32
[2020-02-24] MEDS: D5NS w/KCl 40mEq 1000ml 1,000 ML IV SCH ×2 (11:00→20:48)
[2020-02-24] MEDS ORDERED: CALCITRIOL 1 MCG IV ONE (11:00)
[2020-02-24] MEDS: Calcium Gluconate 1gm/50ml 50 ML IVPB SCH ×3 (11:34→13:41)
[2020-02-24 12:00] VITALS: BP 109/73
[2020-02-24] MEDS ORDERED: Sodium Phosphate 30 MM in NS 275 ML IVPB ONE (12:00)
--- NOTE | 2020-02-24 12:08 | General Progress Note ---
Subjective ROS Limited/Unobtainable: No Allergies: Coded Allergies: No Known Allergies (Unverified , 02/15/20) Objective Last 24 Hour Vital Signs Date Time Temp Pulse Resp B/P (MAP) Pulse Ox O2 Delivery O2 Flow Rate FiO2 02/24/20 08:59 104 126/87 02/24/20 08:00 97.2 104 18 126/87 (100) 95 02/24/20 04:00 99 02/24/20 04:00 97.2 19 124/89 (101) 94 02/24/20 00:00 109 02/24/20 00:00 98.1 107 19 116/80 (92) 97 02/23/20 22:12 116 121/90 02/23/20 21:00 Room Air 2.0 02/23/20 20:06 96 Room Air 21 02/23/20 20:00 97.7 129 20 115/65 (82) 96 02/23/20 20:00 128 02/23/20 16:00 97.5 124 20 129/83 (98) 97 02/23/20 16:00 115 Intake and Output 02/23/20 02/24/20 19:00 07:00 Intake Total 212.5 ml 2775.1 ml Output Total 2000 ml 500 ml Balance -1787.5 ml 2275.1 ml Intake IV Total 212.5 ml 2775.1 ml Output Urine Total 2000 ml 500 ml # Voids 1 Laboratory Tests 02/23/20 18:25: Sodium Level 139, Potassium Level 2.9L, Chloride Level 104, Carbon Dioxide Level 22, Anion Gap 13, Blood Urea Nitrogen 9, Creatinine 0.8, Estimat Glomerular Filtration Rate > 60, Glucose Level 133H, Lactic Acid Level 7.10H, Calcium Level 6.3L 02/23/20 22:45: Lactic Acid Level 6.10H 02/24/20 08:00: Sodium Level 134L, Potassium Level 2.4*L, Chloride Level 101, Carbon Dioxide Level 20L, Anion Gap 13, Blood Urea Nitrogen 8, Creatinine 0.8, Estimat Glomerular Filtration Rate > 60, Glucose Level 146H, Lactic Acid Level 5.60H, Calcium Level 5.8*L, White Blood Count 5.2, Red Blood Count 2.64L, Hemoglobin 7.9L, Hematocrit 22.4L, Mean Corpuscular Volume 85, Mean Corpuscular Hemoglobin 29.8, Mean Corpuscular Hemoglobin Concent 35.1, Red Cell Distribution Width 14.1, Platelet Count 49L, Mean Platelet Volume 9.0, Neutrophils (%) (Auto) , Lymphocytes (%) (Auto) , Monocytes (%) (Auto) , Eosinophils (%) (Auto) , Basophils (%) (Auto) , Differential Total Cells Counted 100, Neutrophils % (Manual) 78H, Lymphocytes % (Manual) 20, Monocytes % (Manual) 2, Eosinophils % (Manual) 0, Basophils % (Manual) 0, Band Neutrophils 0, Platelet Estimate DecreasedL, Platelet Morphology Normal, Anisocytosis 1+, Phosphorus Level 1.7L, Total Bilirubin 0.4, Aspartate Amino Transf (AST/SGOT) 28, Alanine Aminotransferase (ALT/SGPT) 24, Alkaline Phosphatase 66, Total Protein 3.3L, Albumin 1.3L, Globulin 2.0, Albumin/Globulin Ratio 0.6L Height (Feet): 5 Height (Inches): 4.00 Weight (Pounds): 113 General Appearance: no apparent distress EENT: normal ENT inspection Neck: supple Cardiovascular: normal rate Respiratory/Chest: decreased breath sounds Abdomen: normal bowel sounds, non tender, soft Extremities: non-tender Assessment/Plan Problem List: (1) Large bowel obstruction ICD Codes: K56.609 - Unspecified intestinal obstruction, unspecified as to partial versus complete obstruction SNOMED: 008817168 (2) Hypokalemia ICD Codes: E87.6 - Hypokalemia SNOMED: 04104121 (3) Lightheaded ICD Codes: R42 - Dizziness and giddiness SNOMED: 395190618 Status: stable Assessment/Plan: colon cancer with bowel obstruction s/p resection POD #6 on liquid diet fu surg recs Graeme Hirsch MD Feb 24, 2020 12:08
--- NOTE | 2020-02-24 12:49 | NUR ---
CASE MANAGEMENT:REVIEW 02/24/20 SI: POD #6 S/P LEFT COLECTOMY. OMENTECTOMY VS: T 97.2 HR 104 RR 18 B/P 126/87 SATS 95% ON RA LABS: HG 7.9 HCT 22.4 NA 134 K 2.4 CO2 20 GLU 146 LACTIC ACID 5.6 CA 5.8 PHOS 1.7 IS: IV METOPROLOL Q12 IV K-PHOS Q4HRS X2 BAGS IV MAG SULFATE Q1HRS X4HRS IV ZOSYN Q8HRS IV FLAGYL Q8HRS IVF@150/HR HEPARIN SQ Q8HRS : TELEMETRY STATUS DCP: PATIENT IS FROM HOME PLAN: CLD AWAITING BOWEL FUNCTION RETURN
--- NOTE | 2020-02-24 12:55 | NUR ---
INSURANCE CLINICALS FAXED TO [facility] T: [phone] opt 1 F: [phone]
--- NOTE | 2020-02-24 13:25 | Surgery Progress Note ---
Surgery Progress Note Subjective Procedure Performed ex lap left colectomy mobilization of splenic flexure omentectomy primary anastomosis Additional Comments afebrile, tachy improved k needs replacing distended no pain no bm Objective Last 24 Hour Vital Signs Date Time Temp Pulse Resp B/P (MAP) Pulse Ox O2 Delivery O2 Flow Rate FiO2 02/24/20 11:33 97 02/24/20 08:59 104 126/87 02/24/20 08:02 109 02/24/20 08:00 97.2 104 18 126/87 (100) 95 02/24/20 04:00 99 02/24/20 04:00 97.2 19 124/89 (101) 94 02/24/20 00:00 109 02/24/20 00:00 98.1 107 19 116/80 (92) 97 02/23/20 22:12 116 121/90 02/23/20 21:00 Room Air 2.0 02/23/20 20:06 96 Room Air 21 02/23/20 20:00 97.7 129 20 115/65 (82) 96 02/23/20 20:00 128 02/23/20 16:00 97.5 124 20 129/83 (98) 97 02/23/20 16:00 115 I&O Intake and Output 02/23/20 02/24/20 19:00 07:00 Intake Total 212.5 ml 2775.1 ml Output Total 2000 ml 500 ml Balance -1787.5 ml 2275.1 ml Intake IV Total 212.5 ml 2775.1 ml Output Urine Total 2000 ml 500 ml # Voids 1 Wound: clean, dry, intact Cardiovascular: RSR Respiratory: clear Abdomen: soft, distended, non-tender, decreased bowel sounds Extremities: no edema, no tenderness, no cyanosis Laboratory Tests Test 02/23/20 18:25 02/23/20 22:45 02/24/20 08:00 Sodium Level 139 MMOL/L (136-145) 134 MMOL/L (136-145) L Potassium Level 2.9 MMOL/L (3.5-5.1) L 2.4 MMOL/L (3.5-5.1) *L Chloride Level 104 MMOL/L (98-107) 101 MMOL/L (98-107) Carbon Dioxide Level 22 MMOL/L (21-32) 20 MMOL/L (21-32) L Anion Gap 13 mmol/L (5-15) 13 mmol/L (5-15) Blood Urea Nitrogen 9 mg/dL (7-18) 8 mg/dL (7-18) Creatinine 0.8 MG/DL (0.55-1.30) 0.8 MG/DL (0.55-1.30) Estimat Glomerular Filtration Rate > 60 mL/min (>60) > 60 mL/min (>60) Glucose Level 133 MG/DL (74-106) H 146 MG/DL (74-106) H Lactic Acid Level 7.10 mmol/L (0.4-2.0) H 6.10 mmol/L (0.66-2.22) H 5.60 mmol/L (0.4-2.0) H Calcium Level 6.3 MG/DL (8.5-10.1) L 5.8 MG/DL (8.5-10.1) *L White Blood Count 5.2 K/UL (4.8-10.8) Red Blood Count 2.64 M/UL (4.20-5.40) L Hemoglobin 7.9 G/DL (12.0-16.0) L Hematocrit 22.4 % (37.0-47.0) L Mean Corpuscular Volume 85 FL (80-99) Mean Corpuscular Hemoglobin 29.8 PG (27.0-31.0) Mean Corpuscular Hemoglobin Concent 35.1 G/DL (32.0-36.0) Red Cell Distribution Width 14.1 % (11.6-14.8) Platelet Count 49 K/UL (150-450) L Mean Platelet Volume 9.0 FL (6.5-10.1) Neutrophils (%) (Auto) % (45.0-75.0) Lymphocytes (%) (Auto) % (20.0-45.0) Monocytes (%) (Auto) % (1.0-10.0) Eosinophils (%) (Auto) % (0.0-3.0) Basophils (%) (Auto) % (0.0-2.0) Differential Total Cells Counted 100 Neutrophils % (Manual) 78 % (45-75) H Lymphocytes % (Manual) 20 % (20-45) Monocytes % (Manual) 2 % (1-10) Eosinophils % (Manual) 0 % (0-3) Basophils % (Manual) 0 % (0-2) Band Neutrophils 0 % (0-8) Platelet Estimate Decreased L Platelet Morphology Normal Anisocytosis 1+ Phosphorus Level 1.7 MG/DL (2.5-4.9) L Total Bilirubin 0.4 MG/DL (0.2-1.0) Aspartate Amino Transf (AST/SGOT) 28 U/L (15-37) Alanine Aminotransferase (ALT/SGPT) 24 U/L (12-78) Alkaline Phosphatase 66 U/L (46-116) Total Protein 3.3 G/DL (6.4-8.2) L Albumin 1.3 G/DL (3.4-5.0) L Globulin 2.0 g/dL Albumin/Globulin Ratio 0.6 (1.0-2.7) L Plan Problems: (1) Lightheaded (2) Hypokalemia (3) Large bowel obstruction Assessment & Plan: 64-year-old female with abdominal distention potential large bowel obstruction. Afebrile, hemodynamic stable, labs noted no leukocytosis no pain no bleeding. No prior abdominal surgeries. Nausea and emesis clear liquid. Decreased appetite. Cannot recall last flatus or BM. CT as below. No direct mass or abnormality identified but there is absolutely identifiable transition at the rectosigmoid area with proximal dilatation. A colonoscopy is warranted but though would be with definitive risk of potential perforation. GI consult pending. Replace electrolytes. N.p.o. IV fluids will await scope for findings. Conceivably may require surgical intervention. Thank you for let me participate in patient's care will follow with recommendations GI consider for scope 02/17 will be available for surgery in case of emergency high risk for perforation or complication and understands. but strongly recommend scope prior to surgery for etiology purposes. s/p ex lap. see op report recovering okay to downgrade to tele npo okay for ice chips iv fluids abx tomas to stay in until ambulatory heparin petechia plt down hold heparin scds cont abx trend labs trial liquid diet ?air leak but afebrile, hd stable, no wbc, shift improved. needs K replacement There are several circumscribed low-density nonenhancing cysts noted in the liver. The spleen is homogeneous. Gallbladder is without sludge or stone and there is no wall thickening. The pancreas is unremarkable. Adrenals are normal in morpholo gy. The kidneys are normal in size, shape and axis. Small bowel loops are nondistended. The dominant abnormality is severe colonic distention containing air-fluid levels and stool debris. Dilated colon extends down to the rectosigmoid junction where there is an apparent transition. The rectal vault is nondistended with only a small amount of stool. No definite discernible mass is detected there is There is no free fluid or free air. No pathologic adenopathy demonstrated. Bladder is empty. There is no suspicious superficial soft tissue or osseous abnormality. IMPRESSION: SEVERE COLONIC DISTENTION WITH AIR-FLUID LEVELS AND STOOL DEBRIS. THERE IS APPARENT TRANSITION AT THE RECTOSIGMOID JUNCTION WITH A RELATIVELY EMPTY RECTAL VAULT WITH ONLY SMALL AMOUNT OF STOOL. NO DEFINITE DISCERNIBLE MASS AT THE TRANSITION POINT. RECOMMEND GI CONSULTATION AND CONSIDER COLONOSCOPY. Swapnil Brito Feb 24, 2020 13:25
--- NOTE | 2020-02-24 15:04 | NUR ---
NURSE NOTES: Dr Brito made aware of CBC results. Per CALVIN NEGRO heparin that has been on hold, monitor platelets, and h&h.
[2020-02-24 16:00] VITALS: BP 115/65
--- NOTE | 2020-02-24 16:51 | NUR ---
NURSE NOTES: Dr Arnett aware of critical labs. Orders entered by . Addendum: 02/24/20 at 1652 by Liset Broderick RN Time for the note 10AM
--- NOTE | 2020-02-24 17:18 | NUR ---
NURSE NOTES: Pharmacy made aware that last bag for KCL 10meq will be administered once the previous bag is finished.
--- NOTE | 2020-02-24 19:25 | NUR ---
NURSE NOTES: Received report from RYANN Hutchins. Pt in bed awake, alert, oriented x4,able to make needs known. No resp distress noted. cardiac monitor in place. IV in place & patent on left wrist 24G, no s/s infiltration noted. Right forearm 22G IV in place & patent. ABD surgical site wing in place, no s/s infection noted. F/C in place &patent draining to gravity yellow urine. SCD in place. Bed in low position & locked, side rails up x3. Bed alarm on. Call light with in reach.
--- NOTE | 2020-02-24 19:32 | NUR ---
NURSE HAND-OFF REPORT: Important Events on Shift: Pt received 3 bags of calcium gluconate, 6 bags of KCL with 10MEQ, Calcitriol 1mcg vial, sodium phosphate. Dr Brito aware of CBC levels. Heparin and abx dc Patient Status: stable, weak Diet: clear liquid Pending Orders: labs tomorrow Pending Results/Labs: Pending MD notification: Latest Vital Signs: Temperature 96.7 , Pulse 76 , B/P 115 /65 , Respiratory Rate 19 , O2 SAT 96 , Room Air, O2 Flow Rate 2.0 . Vital Sign Comment: EKG Rhythm: Sinus Tachycardia Rhythm change?: N MD Notified?: N - MD Response: Latest Scherer Fall Score: 20 Fall Risk: Low Risk Safety Measures: Call light Within Reach, Bed Alarm Zone 1, Side Rails Side Rails x3, Bed position Low and Locked. Fall Precautions: Yellow Socks Yellow Gown Patient Fall Education Report given to RYANN Pop
[2020-02-24 20:00] VITALS: BP 121/79
[2020-02-25] VITALS: BP 118/78
[2020-02-25 04:00] VITALS: BP 119/73
--- NOTE | 2020-02-25 06:51 | Pulmonology Progress Note ---
Subjective ROS Limited/Unobtainable: No Interval Events: S/p colectomy Constitutional: Reports: no symptoms HEENT: Repors: no symptoms Respiratory: Reports: no symptoms Cardiovascular: Reports: no symptoms Gastrointestinal/Abdominal: Reports: constipation, bloating Genitourinary: Reports: no symptoms Allergies: Coded Allergies: No Known Allergies (Unverified , 02/15/20) Objective Last 24 Hour Vital Signs Date Time Temp Pulse Resp B/P (MAP) Pulse Ox O2 Delivery O2 Flow Rate FiO2 02/25/20 04:00 97.2 101 18 119/73 (88) 98 02/25/20 04:00 100 02/25/20 00:00 97.5 98 18 118/78 (91) 99 02/24/20 21:00 Room Air 02/24/20 20:49 102 121/79 02/24/20 20:11 98 Room Air 21 02/24/20 20:00 103 02/24/20 20:00 97.0 102 18 121/79 (93) 98 02/24/20 16:00 96.7 76 19 115/65 (82) 96 02/24/20 15:10 103 02/24/20 12:00 98.1 92 20 109/73 (85) 100 02/24/20 11:33 97 02/24/20 09:00 Room Air 02/24/20 08:59 104 126/87 02/24/20 08:02 109 02/24/20 08:00 97.2 104 18 126/87 (100) 95 Intake and Output 02/24/20 02/25/20 19:00 07:00 Output Total 2100 ml Balance -2100 ml Output Urine Total 2100 ml # Voids 1 General Appearance: no acute distress HEENT: normocephalic Respiratory: chest wall non-tender, lungs clear Cardiovascular: normal peripheral pulses Abdomen: non distended, absent bowel sounds Laboratory Tests 02/24/20 08:00: White Blood Count 5.2, Red Blood Count 2.64L, Hemoglobin 7.9L, Hematocrit 22.4L, Mean Corpuscular Volume 85, Mean Corpuscular Hemoglobin 29.8, Mean Corpuscular Hemoglobin Concent 35.1, Red Cell Distribution Width 14.1, Platelet Count 49L, Mean Platelet Volume 9.0, Neutrophils (%) (Auto) , Lymphocytes (%) (Auto) , Monocytes (%) (Auto) , Eosinophils (%) (Auto) , Basophils (%) (Auto) , Differential Total Cells Counted 100, Neutrophils % (Manual) 78H, Lymphocytes % (Manual) 20, Monocytes % (Manual) 2, Eosinophils % (Manual) 0, Basophils % (Manual) 0, Band Neutrophils 0, Platelet Estimate DecreasedL, Platelet Morphology Normal, Anisocytosis 1+, Sodium Level 134L, Potassium Level 2.4*L, Chloride Level 101, Carbon Dioxide Level 20L, Anion Gap 13, Blood Urea Nitrogen 8, Creatinine 0.8, Estimat Glomerular Filtration Rate > 60, Glucose Level 146H, Lactic Acid Level 5.60H, Calcium Level 5.8*L, Phosphorus Level 1.7L, Total Bilirubin 0.4, Aspartate Amino Transf (AST/SGOT) 28, Alanine Aminotransferase (ALT/SGPT) 24, Alkaline Phosphatase 66, Total Protein 3.3L, Albumin 1.3L, Globulin 2.0, Albumin/Globulin Ratio 0.6L Current Medications Medications (Trade) Dose Ordered Sig/Fozia Route PRN Reason Start Time Stop Time Status Last Admin Dose Admin Acetaminophen (Tylenol) 650 mg Q6H PRN ORAL Mild Pain (Pain Scale 1-3) 02/18/20 17:15 03/19/20 17:14 Dextrose/ Electrolytes 1,000 ml @ 100 mls/hr Q10H IV 02/24/20 11:00 03/25/20 10:59 02/24/20 20:48 Diphenhydramine HCl (Benadryl) 12.5 mg Q6H PRN IVP Itching/Pruritis 02/18/20 17:15 03/19/20 17:14 Meclizine HCl (Antivert) 25 mg TID PRN ORAL for dizziness 02/20/20 20:30 03/21/20 20:29 Metoprolol Tartrate (Lopressor) 25 mg Q12HR ORAL 02/24/20 21:00 05/24/20 20:59 02/24/20 20:49 Morphine Sulfate (Morphine Sulfate) 1 mg Q4H PRN IVP pain scale 1-3 02/18/20 17:15 02/25/20 17:14 Morphine Sulfate (Morphine Sulfate) 2 mg Q4H PRN IVP pain scale 4-6 02/18/20 17:15 02/25/20 17:14 02/18/20 21:16 Morphine Sulfate (Morphine Sulfate) 4 mg Q4H PRN IVP pain score 7-10 02/18/20 17:15 02/25/20 17:14 Ondansetron HCl (Zofran) 4 mg Q6H PRN IVP Nausea & Vomiting 02/18/20 17:15 03/19/20 17:14 Promethazine HCl 50 mg/Sodium Chloride 111 ml @ 222 mls/hr Q6H PRN IVPB for dizziness 02/20/20 20:45 03/21/20 20:44 02/20/20 21:42 Assessment/Plan Assessment/Plan IMPRESSION: 1. S/p laparotomy 2. Severe hypokalemia. Corrected 3. Hypertension. 4. Diuretic use. DISCUSSION: Replaced potassium. S/P laparotomy I will continue to follow carefully. Await return of bowel fxn GI and renal following Saturating well on RA Mild elevation of lactic acid noted Hanna Cline Omar Syed MD Feb 25, 2020 06:51
--- NOTE | 2020-02-25 07:25 | NUR ---
NURSE HAND-OFF REPORT: Important Events on Shift:none Patient Status: stable Diet: clear liquid Pending Orders: [] Pending Results/Labs:[] Pending MD notification:[] Latest Vital Signs: Temperature 97.2 , Pulse 101 , B/P 119 /73 , Respiratory Rate 18 , O2 SAT 98 , Room Air, O2 Flow Rate 2.0 . Vital Sign Comment: [] EKG Rhythm: Sinus Rhythm Rhythm change?: Y MD Notified?: N - MD Response: Latest Scherer Fall Score: 20 Fall Risk: Low Risk Safety Measures: Call light Within Reach, Bed Alarm Zone 1, Side Rails Side Rails x3, Bed position Low and Locked. Fall Precautions: Yellow Socks Yellow Gown Patient Fall Education Report given to RYANN Pandya.
--- NOTE | 2020-02-25 07:30 | NUR ---
NURSE NOTES: Received report from RYANN Pop. Observed pt sleeping, no s/sx of acute distress, breathing even and unlabored in RA. IV sites patent and asymptomatic, running IVF as ordered. Bed on lowest position, call light within reach. Will continue plan of care.
[2020-02-25] MEDS: D5NS w/KCl 40mEq 1000ml 1,000 ML IV SCH ×2 (07:58→17:36)
[2020-02-25 08:00] VITALS: BP 108/72
--- NOTE | 2020-02-25 09:16 | Nephrology Progress Note ---
Assessment/Plan Plan #Severe hypokalemia #Abdominal distention - bowel obstruction due to colonic mass #htn #Dehydration #HLD - s/p resection POD #5 - monitor lactic acidic level - replete K, elvi mag - calcitriol 1mcg x1 - check vitamin D level - IVF- switch to D5NS + 40 kcl - replete K, mag and phos - on CLD - monitor lytes - avoid nephrotoxins - gen surg eval Subjective ROS Limited/Unobtainable: No Constitutional: Reports: weakness HEENT: Denies: no symptoms, eye pain, blurred vision, tearing, double vision, ear pain, ear discharge, nose pain, nose congestion, throat pain, throat swelling, mouth pain, mouth swelling, other Genitourinary: Denies: no symptoms, burning, discharge, frequency, flank pain, hematuria, incontinence, pain, urgency, other Neurologic/Psychiatric: Denies: no symptoms, anxiety, depressed, emotional problems, headache, numbness, paresthesia, pre-existing deficit, seizure, tingling, tremors, weakness, other Subjective s/p resection POD #5 lytes low + lactic acidosis Objective Objective Last 24 Hour Vital Signs Date Time Temp Pulse Resp B/P (MAP) Pulse Ox O2 Delivery O2 Flow Rate FiO2 02/25/20 08:57 97 108/72 02/25/20 08:00 96.7 97 18 108/72 (84) 95 02/25/20 04:00 97.2 101 18 119/73 (88) 98 02/25/20 04:00 100 02/25/20 00:00 118 02/25/20 00:00 97.5 98 18 118/78 (91) 99 02/24/20 21:00 Room Air 02/24/20 20:49 102 121/79 02/24/20 20:11 98 Room Air 21 02/24/20 20:00 103 02/24/20 20:00 97.0 102 18 121/79 (93) 98 02/24/20 16:00 96.7 76 19 115/65 (82) 96 02/24/20 15:10 103 02/24/20 12:00 98.1 92 20 109/73 (85) 100 02/24/20 11:33 97 Intake and Output 02/24/20 02/25/20 19:00 07:00 Intake Total 100 ml Output Total 2100 ml 1500 ml Balance -2100 ml -1400 ml Intake Oral 100 ml Output Urine Total 2100 ml 1500 ml # Voids 1 Height (Feet): 5 Height (Inches): 4.00 Weight (Pounds): 113 Yakelin Arnett M.D. Feb 25, 2020 09:16
--- NOTE | 2020-02-25 10:06 | NUR ---
RADIOLOGY DEPT., CHEST AND ABDOMEN X-RAYS COMPLETED.-P.DYE
--- NOTE | 2020-02-25 10:40 | Diagnostic Imaging Report ---
EXAM: XRAY Abdomen 1v HISTORY: Reason For Exam: PAIN COMPARISON: 02/23/2020. TECHNIQUE: 2 view of the abdomen obtained. FINDINGS: No significant change noted compare prior exam. Midline skin wing again noted in the lower abdomen/pelvis. Gaseous distention of multiple small bowel loops again noted along with pneumoperitoneum which are unchanged. There is no mass or mass effect noted. No definite pathologic calcifications identified. There is no sign of free air. No acute abnormality noted of the visualized osseous structures. IMPRESSION: NO CHANGE GASEOUS DISTENTION OF THE BOWEL AND PNEUMOPERITONEUM STATUS POST SURGERY.
--- NOTE | 2020-02-25 10:41 | Diagnostic Imaging Report ---
Procedure: XRAY Chest 1v Reason for study: Reason For Exam: COUGH Comparison films: 02/21/2020. FINDINGS: A single one view chest is obtained. Vascularity is normal. Basilar infiltrates unchanged. Cardiac and mediastinal silhouette are within normal limits. CP angles are sharp. Pneumoperitoneum upper abdomen again noted following abdominal surgery. IMPRESSION: NO SIGNIFICANT CHANGE COMPARED TO PREVIOUS EXAM.
--- NOTE | 2020-02-25 11:12 | Cardiac Electrophysiology PN ---
Assessment/Plan Assessment/Plan 1. Nonsustained VT 5 beats and Palpitations. Correct hypokalemia. Echo EF 55%.On Metoprolol 25 po bid 2. Sinus tach better on Metoprolol 25 po bid 3. Bowel obstruction. S/P ex lap, left colectomy, mobilization of splenic flexure by Dr Brito, On Clear liquid diet 4. Hypokalemia. being replaced with iv K and Mg 5. PVCs and dizziness DW RN Subjective Subjective Had 5 beats of VT 02/21/20. No more VT.HR better on Lopressor 25 bid. On Clear Liquid diet. Objective Last 24 Hour Vital Signs Date Time Temp Pulse Resp B/P (MAP) Pulse Ox O2 Delivery O2 Flow Rate FiO2 02/25/20 09:00 Room Air 02/25/20 08:57 97 108/72 02/25/20 08:00 96.7 97 18 108/72 (84) 95 02/25/20 07:59 98 02/25/20 04:00 97.2 101 18 119/73 (88) 98 02/25/20 04:00 100 02/25/20 00:00 118 02/25/20 00:00 97.5 98 18 118/78 (91) 99 02/24/20 21:00 Room Air 02/24/20 20:49 102 121/79 02/24/20 20:11 98 Room Air 21 02/24/20 20:00 103 02/24/20 20:00 97.0 102 18 121/79 (93) 98 02/24/20 16:00 96.7 76 19 115/65 (82) 96 02/24/20 15:10 103 02/24/20 12:00 98.1 92 20 109/73 (85) 100 02/24/20 11:33 97 Intake and Output 02/24/20 02/25/20 18:59 06:59 Intake Total 150 ml Output Total 2600 ml Balance -2450 ml IV Total 150 ml Output Urine Total 2600 ml # Voids 1 Objective HEENT: No JVD Cardiovascular: RSR. No GRM Respiratory: clear Abdomen: soft, distended, non-tender. Rochelle intact with no drain Extremities: no edema, no tenderness, no cyanosis Peter Quintana MD Feb 25, 2020 11:12
[2020-02-25 12:00] VITALS: BP 107/63
--- NOTE | 2020-02-25 12:07 | NUR ---
NURSE NOTES: Called dr Zacarias's office, but the voice prompt stated to contact Dr Arnett. Informed MD that pt is a hard stick, lab tried to draw blood but unsuccessful 3x. Per Dr Arnett, order PICC line.
--- NOTE | 2020-02-25 12:12 | NUR ---
CASE MANAGEMENT:REVIEW 02/25/20 SI:POD #7 S/P LEFT COLECTOMY. OMENTECTOMY 96.7 97 18 108/72 95% ON RA IS: LOPRESSOR PO Q12 (HELD FOR LOW BP) IVF@100/HR : TELEMETRY STATUS PLAN: CLEAR LIQUIDS.......BOWEL SOUNDS REMAIN HYPOACTIVE PICC LINE PLACEMENT FOR TODAY CONTINUE HYDRATION THROUGH IV ABDOMINAL XRAY
[2020-02-25] MEDS ORDERED: Heparin1,000 units/500ml Premix(Conc:2 units/ml) IV PRN (12:15)
[2020-02-25] MEDS ORDERED: Lidocaine 1% Plain 30 ml INJ PRN (12:20)
--- NOTE | 2020-02-25 13:27 | General Progress Note ---
Subjective ROS Limited/Unobtainable: No Allergies: Coded Allergies: No Known Allergies (Unverified , 02/15/20) Objective Last 24 Hour Vital Signs Date Time Temp Pulse Resp B/P (MAP) Pulse Ox O2 Delivery O2 Flow Rate FiO2 02/25/20 09:00 Room Air 02/25/20 09:00 Room Air 02/25/20 08:57 97 108/72 02/25/20 08:00 96.7 97 18 108/72 (84) 95 02/25/20 07:59 98 02/25/20 04:00 97.2 101 18 119/73 (88) 98 02/25/20 04:00 100 02/25/20 00:00 118 02/25/20 00:00 97.5 98 18 118/78 (91) 99 02/24/20 21:00 Room Air 02/24/20 20:49 102 121/79 02/24/20 20:11 98 Room Air 21 02/24/20 20:00 103 02/24/20 20:00 97.0 102 18 121/79 (93) 98 02/24/20 16:00 96.7 76 19 115/65 (82) 96 02/24/20 15:10 103 Intake and Output 02/24/20 02/25/20 19:00 07:00 Intake Total 100 ml Output Total 2100 ml 1500 ml Balance -2100 ml -1400 ml Intake Oral 100 ml Output Urine Total 2100 ml 1500 ml # Voids 1 Height (Feet): 5 Height (Inches): 4.00 Weight (Pounds): 113 General Appearance: no apparent distress EENT: normal ENT inspection Neck: supple Cardiovascular: normal rate Respiratory/Chest: decreased breath sounds Abdomen: hypoactive bowel sounds, distended, tender Extremities: non-tender Assessment/Plan Problem List: (1) Large bowel obstruction ICD Codes: K56.609 - Unspecified intestinal obstruction, unspecified as to partial versus complete obstruction SNOMED: 126894646 (2) Hypokalemia ICD Codes: E87.6 - Hypokalemia SNOMED: 01825959 (3) Lightheaded ICD Codes: R42 - Dizziness and giddiness SNOMED: 910117389 Status: stable Assessment/Plan: colon cancer with bowel obstruction s/p resection POD #7 on liquid diet fu surg recs Graeme Hirsch MD Feb 25, 2020 13:27
--- NOTE | 2020-02-25 15:00 | NUR ---
NURSE NOTES: Called IR to verify if they see the order for stat PICC line placement.
--- NOTE | 2020-02-25 15:15 | NUR ---
NURSE NOTES: Pt continues to refuse meals (clear liquids), pt still fatigued and sleeping most of the time. Obtained PICC line placement consent from pt, pt verbalized understanding of the procedure.
--- NOTE | 2020-02-25 15:19 | Surgery Progress Note ---
Surgery Progress Note Subjective Procedure Performed ex lap left colectomy mobilization of splenic flexure omentectomy primary anastomosis Additional Comments could not get labs today yet. difficult stick. pending labs. pending picc kub and cxr noted path noted will obtain CT scan once picc in place and labs done ? leak ? non healing given mets (omentum) ? obstruction? Objective Last 24 Hour Vital Signs Date Time Temp Pulse Resp B/P (MAP) Pulse Ox O2 Delivery O2 Flow Rate FiO2 02/25/20 12:00 97.8 93 18 107/63 (78) 95 02/25/20 11:48 96 02/25/20 09:00 Room Air 02/25/20 09:00 Room Air 02/25/20 08:57 97 108/72 02/25/20 08:00 96.7 97 18 108/72 (84) 95 02/25/20 07:59 98 02/25/20 04:00 97.2 101 18 119/73 (88) 98 02/25/20 04:00 100 02/25/20 00:00 118 02/25/20 00:00 97.5 98 18 118/78 (91) 99 02/24/20 21:00 Room Air 02/24/20 20:49 102 121/79 02/24/20 20:11 98 Room Air 21 02/24/20 20:00 103 02/24/20 20:00 97.0 102 18 121/79 (93) 98 02/24/20 16:00 96.7 76 19 115/65 (82) 96 I&O Intake and Output 02/24/20 02/25/20 19:00 07:00 Intake Total 100 ml Output Total 2100 ml 1500 ml Balance -2100 ml -1400 ml Intake Oral 100 ml Output Urine Total 2100 ml 1500 ml # Voids 1 Wound: clean, dry, intact Cardiovascular: RSR Respiratory: clear Abdomen: soft, distended, non-tender, decreased bowel sounds Extremities: no edema, no tenderness, no cyanosis Plan Problems: (1) Lightheaded (2) Hypokalemia (3) Large bowel obstruction Assessment & Plan: 64-year-old female with abdominal distention potential large bowel obstruction. Afebrile, hemodynamic stable, labs noted no leukocytosis no pain no bleeding. No prior abdominal surgeries. Nausea and emesis clear liquid. Decreased appetite. Cannot recall last flatus or BM. CT as below. No direct mass or abnormality identified but there is absolutely identifiable transition at the rectosigmoid area with proximal dilatation. A colonoscopy is warranted but though would be with definitive risk of potential perforation. GI consult pending. Replace electrolytes. N.p.o. IV fluids will await scope for findings. Conceivably may require surgical intervention. Thank you for let me participate in patient's care will follow with recommendations GI consider for scope 02/17 will be available for surgery in case of emergency high risk for perforation or complication and understands. but strongly recommend scope prior to surgery for etiology purposes. s/p ex lap. see op report recovering okay to downgrade to tele npo okay for ice chips iv fluids abx tomas to stay in until ambulatory heparin petechia plt down hold heparin scds cont abx trend labs trial liquid diet ?air leak but afebrile, hd stable, no wbc, shift improved. needs K replacement There are several circumscribed low-density nonenhancing cysts noted in the liver. The spleen is homogeneous. Gallbladder is without sludge or stone and there is no wall thickening. The pancreas is unremarkable. Adrenals are normal in morphology. The kidneys are normal in size, shape and axis. Small bowel loops are nondistended. The dominant abnormality is severe colonic distention containing air-fluid levels and stool debris. Dilated colon extends down to the rectosigmoid junction where there is an apparent transition. The rectal vault is nondistended with only a small amount of stool. No definite discernible mass is detected there is There is no free fluid or free air. No pathologic adenopathy demonstrated. Bladder is empty. There is no suspicious superficial soft tissue or osseous abnormality. IMPRESSION: SEVERE COLONIC DISTENTION WITH AIR-FLUID LEVELS AND STOOL DEBRIS. THERE IS APPARENT TRANSITION AT THE RECTOSIGMOID JUNCTION WITH A RELATIVELY EMPTY RECTAL VAULT WITH ONLY SMALL AMOUNT OF STOOL. NO DEFINITE DISCERNIBLE MASS AT THE TRANSITION POINT. RECOMMEND GI CONSULTATION AND CONSIDER COLONOSCOPY. Swapnil Brito Feb 25, 2020 15:19
[2020-02-25 16:00] VITALS: BP 112/75
--- NOTE | 2020-02-25 17:16 | Pre-Procedure Note/Attestation ---
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 I attest that, if there was a reasonable possibility of needing a blood transfusion, the patient (or the patient's legal marketing development representative) was given the [facility] standardized written summary, pursuant to the Gene Joanna Blood Safety Act ([place] Health and Safety Code # 1645, as amended). I attest that I re-evaluated the patient just prior to the surgery and that there has been no change in the patient's H&P, except as documented below: Sukhjinder Mcginnis MD Feb 25, 2020 17:16
--- NOTE | 2020-02-25 17:16 | Brief Operative Note ---
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
[2020-02-25 18:44] LABS: HEMATOCRIT 21.8 % (37.0-47.0); HEMOGLOBIN 7.2 G/DL (12.0-16.0); MEAN CORPUSCULAR VOLUME 87 FL (80-99); PLATELET COUNT 28 K/UL (150-450); RED BLOOD COUNT 2.49 M/UL (4.20-5.40); RED CELL DISTRIBUTION WIDTH 14.5 % (11.6-14.8); WHITE BLOOD COUNT 3.4 K/UL (4.8-10.8)
[2020-02-25 18:50] LABS: ALANINE AMINOTRANSFERASE 25 U/L (12-78); ALBUMIN 1.3 G/DL (3.4-5.0); ALBUMIN/GLOBULIN RATIO 0.6 (1.0-2.7); ALKALINE PHOSPHATASE 68 U/L (46-116); ANION GAP 7 mmol/L (5-15); ASPARTATE AMINO TRANSFERASE 32 U/L (15-37); BILIRUBIN,TOTAL 0.4 MG/DL (0.2-1.0); BLOOD UREA NITROGEN 8 mg/dL (7-18); CALCIUM 6.2 MG/DL (8.5-10.1); CARBON DIOXIDE 25 MMOL/L (21-32); CHLORIDE 105 MMOL/L (98-107); CREATININE 0.6 MG/DL (0.55-1.30); SODIUM 137 MMOL/L (136-145)
--- NOTE | 2020-02-25 19:21 | Diagnostic Imaging Report ---
Indications: Needs long-term IV access Technique: Ultrasound confirms patent compressible right basilic vein. Total sterile technique, including sterile probe cover and sterile gel, hat, mask, sterile gown, large sterile drape, and preparation with 2% chlorhexidine utilized. Local anesthesia with 1% lidocaine. Under real-time ultrasound guidance, puncture basilic vein using 21-gauge needle, documented and archived, passage 0.018 guidewire under direct fluoroscopy, which was used to determine appropriate catheter length, exchange for 4 Hebrew peel-away sheath. 4 Hebrew Bard dual-lumen power PICC cut to 40 cm. It was inserted through the peel-away sheath. Peel-away sheath and guidewire removed. Catheter fixed to the skin. Both catheter ports aspirated and flushed. Patient tolerated procedure well, without immediate complication. Digital radiograph documents satisfactory catheter tip position, at the cavoatrial junction. Total fluoroscopy time 36.9 seconds. Total dose area product [id number] [id number] Total number of images: 1 Impression: Successful placement of right arm PICC under sonographic and fluoroscopic guidance, as described above.
--- NOTE | 2020-02-25 19:30 | NUR ---
NURSE NOTES: Received report from RYANN Hutchins. Pt in bed awake, alert, oriented x4,able to make needs known. No resp distress noted. monitor and storage bin tender in place.Right upper arm double lumen picc line in place & patent. ABD surgical site wing in place, no s/s infection noted. F/C in place &patent draining to gravity yellow urine. SCD in place. Air loss mattress skin maintenance. Bed in low position & locked, side rails up x3. Bed alarm on. Call light with in reach.
--- NOTE | 2020-02-25 19:30 | NUR ---
RADIOLOGY NOTE: RUE 2L PICC PLACED.
--- NOTE | 2020-02-25 19:38 | NUR ---
NURSE HAND-OFF REPORT: Important Events on Shift: Pt had PICC line placement in the afternoon. Pt refused to eat her meals. Patient Status: fair Diet: clear Pending Orders: Pending Results/Labs: Pending MD notification: Latest Vital Signs: Temperature 98.6 , Pulse 97 , B/P 112 /75 , Respiratory Rate 19 , O2 SAT 98 , Room Air, O2 Flow Rate 2.0 . Vital Sign Comment: EKG Rhythm: Sinus Rhythm Rhythm change?: N MD Notified?: N - MD Response: Latest Scherer Fall Score: 20 Fall Risk: Low Risk Safety Measures: Call light Within Reach, Bed Alarm Zone 1, Side Rails Side Rails x3, Bed position Low and Locked. Fall Precautions: Yellow Socks Yellow Gown Patient Fall Education Report given to RYANN Pop.
--- NOTE | 2020-02-25 19:53 | NUR ---
NURSE NOTES: Called dr Zacarias's office to relay lab results, but the voice prompt stated to contact Dr Arnett. Dr. Arnett made aware of abnormal lab levels, with new orders gives. Will note & carried out. Per Dr. Arnett no new orders regarding patient low Hgb & Hct levels at this time.
[2020-02-25 20:00] VITALS: BP_SYST 118; BP_DIAS 72; BP_DIAS 75
[2020-02-25] MEDS: Dyna-Hex 2% Top Sol 2oz TOPIC SCH (20:26)
[2020-02-25] MEDS ORDERED: Calcium Gluconate 1gm/50ml 50 ML IVPB SCH (21:00)
[2020-02-26] VITALS: BP 108/66
[2020-02-26] MEDS ORDERED: Potassium Phosphate 15mm/250ml 250 ML IVPB ONE (01:00)
[2020-02-26 04:00] VITALS: BP 109/58
[2020-02-26] MEDS: D5NS w/KCl 40mEq 1000ml 1,000 ML IV SCH ×3 (04:55→23:36)
--- NOTE | 2020-02-26 07:40 | NUR ---
NURSE NOTES: Received report from Kiesha/RN, Observed patient awake, lying semi-wong's, lethargic. On room air, no acute distress/SOB noted.PICC line on right upper arm, patent and intact. Leiva draining well to gravity. On pressure release mattress for protection. Bed in low position and locked, Call light within reach. Encouraged to use call light when needed. Bed alarm is on, side rails up x2. Will continue plan of care.
--- NOTE | 2020-02-26 07:50 | NUR ---
NURSE HAND-OFF REPORT: Important Events on Shift: made aware of abnormal lab results with new orders give. Noted & carried out. Patient Status: stable Diet: clear liquid diet Pending Orders: [] Pending Results/Labs:[] Pending MD notification:[] Latest Vital Signs: Temperature 97.2 , Pulse 108 , B/P 109 /58 , Respiratory Rate 20 , O2 SAT 95 , Room Air, O2 Flow Rate 2.0 . Vital Sign Comment: [] EKG Rhythm: Sinus Tachycardia Rhythm change?: Y MD Notified?: N - MD Response: Latest Scherer Fall Score: 20 Fall Risk: Low Risk Safety Measures: Call light Within Reach, Bed Alarm Zone 1, Side Rails Side Rails x3, Bed position Low and Locked. Fall Precautions: Yellow Socks Yellow Gown Patient Fall Education Report given to RYANN Farrar.
[2020-02-26 08:00] VITALS: BP_SYST 104; BP_SYST 112; BP_DIAS 59; BP_DIAS 65
--- NOTE | 2020-02-26 08:14 | NUR ---
CASE MANAGEMENT:REVIEW 02/26/20 SI:POD #8 S/P LEFT COLECTOMY. OMENTECTOMY 97.2 107 20 109/58 95% ON RA IS: IV K-PHOS X1 IV KCL Q1HRS X4 BAGS LOPRESSOR PO Q12 IVF@100/HR : TELEMETRY STATUS PLAN: CONTINUE CLEAR LIQUIDS.......BOWEL SOUNDS REMAIN HYPOACTIVE PICC LINE PLACED ABD XRAY~ GASEOUS DISTENTION OF THE BOWEL AND PNEUMOPERITONEUM STATUS POST SURGERY.
[2020-02-26 08:41] LABS: HEMATOCRIT 20.4 % (37.0-47.0); MEAN CORPUSCULAR VOLUME 84 FL (80-99); PLATELET COUNT 27 K/UL (150-450); RED BLOOD COUNT 2.42 M/UL (4.20-5.40); RED CELL DISTRIBUTION WIDTH 13.8 % (11.6-14.8); WHITE BLOOD COUNT 3.5 K/UL (4.8-10.8)
[2020-02-26 08:46] LABS: HEMOGLOBIN 6.9 G/DL (12.0-16.0)
[2020-02-26 09:09] LABS: ANION GAP 8 mmol/L (5-15); BLOOD UREA NITROGEN 9 mg/dL (7-18); CALCIUM 6.7 MG/DL (8.5-10.1); CARBON DIOXIDE 25 MMOL/L (21-32); CHLORIDE 104 MMOL/L (98-107); CREATININE 0.6 MG/DL (0.55-1.30); PHOSPHORUS 2.4 MG/DL (2.5-4.9); POTASSIUM 3.6 MMOL/L (3.5-5.1); SODIUM 137 MMOL/L (136-145)
[2020-02-26 09:24] LABS: ALANINE AMINOTRANSFERASE 24 U/L (12-78); ALBUMIN 1.4 G/DL (3.4-5.0); ALKALINE PHOSPHATASE 75 U/L (46-116); ASPARTATE AMINO TRANSFERASE 29 U/L (15-37); BILIRUBIN,DIRECT 0.1 MG/DL (0.0-0.3); BILIRUBIN,TOTAL 0.4 MG/DL (0.2-1.0)
[2020-02-26 12:00] VITALS: BP 108/67
--- NOTE | 2020-02-26 12:14 | Surgery Progress Note ---
Surgery Progress Note Subjective Procedure Performed ex lap left colectomy mobilization of splenic flexure omentectomy primary anastomosis Additional Comments picc in labs noted k improved h/h drop plt trending down dic? CT ordered mets noted on path Objective Last 24 Hour Vital Signs Date Time Temp Pulse Resp B/P (MAP) Pulse Ox O2 Delivery O2 Flow Rate FiO2 02/26/20 09:56 105 104/65 02/26/20 09:00 Room Air 02/26/20 08:00 98.2 105 20 104/65 (78) 98 02/26/20 08:00 104 02/26/20 04:00 97.2 108 20 109/58 (75) 95 02/26/20 04:00 104 02/26/20 00:00 97.0 107 22 108/66 (80) 98 02/26/20 00:00 103 02/25/20 21:41 102 118/72 02/25/20 21:00 Room Air 02/25/20 20:00 96.8 102 22 118/72 (87) 100 02/25/20 20:00 98 02/25/20 20:00 96.8 102 22 118/75 (89) 100 02/25/20 16:28 97 02/25/20 16:00 98.6 104 19 112/75 (87) 98 I&O Intake and Output 02/25/20 02/26/20 19:00 07:00 Intake Total 60 ml Output Total 1100 ml 1700 ml Balance -1100 ml -1640 ml Intake Oral 60 ml Output Urine Total 1100 ml 1700 ml Wound: clean, dry, intact Cardiovascular: RSR Respiratory: clear Abdomen: soft, distended, non-tender, decreased bowel sounds Extremities: no tenderness, no cyanosis Laboratory Tests Test 02/25/20 16:15 02/25/20 23:40 02/26/20 06:00 02/26/20 11:20 White Blood Count 3.4 K/UL (4.8-10.8) L 3.5 K/UL (4.8-10.8) L Red Blood Count 2.49 M/UL (4.20-5.40) L 2.42 M/UL (4.20-5.40) L Hemoglobin 7.2 G/DL (12.0-16.0) L 6.9 G/DL (12.0-16.0) *L Hematocrit 21.8 % (37.0-47.0) L 20.4 % (37.0-47.0) L Mean Corpuscular Volume 87 FL (80-99) 84 FL (80-99) Mean Corpuscular Hemoglobin 29.0 PG (27.0-31.0) 28.4 PG (27.0-31.0) Mean Corpuscular Hemoglobin Concent 33.1 G/DL (32.0-36.0) 33.6 G/DL (32.0-36.0) Red Cell Distribution Width 14.5 % (11.6-14.8) 13.8 % (11.6-14.8) Platelet Count 28 K/UL (150-450) L 27 K/UL (150-450) L Mean Platelet Volume 10.2 FL (6.5-10.1) H 10.5 FL (6.5-10.1) H Neutrophils (%) (Auto) % (45.0-75.0) % (45.0-75.0) Lymphocytes (%) (Auto) % (20.0-45.0) % (20.0-45.0) Monocytes (%) (Auto) % (1.0-10.0) % (1.0-10.0) Eosinophils (%) (Auto) % (0.0-3.0) % (0.0-3.0) Basophils (%) (Auto) % (0.0-2.0) % (0.0-2.0) Differential Total Cells Counted 100 Neutrophils % (Manual) 83 % (45-75) H Pending Lymphocytes % (Manual) 16 % (20-45) L Pending Monocytes % (Manual) 1 % (1-10) Eosinophils % (Manual) 0 % (0-3) Basophils % (Manual) 0 % (0-2) Band Neutrophils 0 % (0-8) Platelet Estimate Decreased L Pending Platelet Morphology Normal Pending Anisocytosis 1+ Sodium Level 137 MMOL/L (136-145) 137 MMOL/L (136-145) Potassium Level 3.0 MMOL/L (3.5-5.1) L 3.6 MMOL/L (3.5-5.1) Chloride Level 105 MMOL/L (98-107) 104 MMOL/L (98-107) Carbon Dioxide Level 25 MMOL/L (21-32) 25 MMOL/L (21-32) Anion Gap 7 mmol/L (5-15) 8 mmol/L (5-15) Blood Urea Nitrogen 8 mg/dL (7-18) 9 mg/dL (7-18) Creatinine 0.6 MG/DL (0.55-1.30) 0.6 MG/DL (0.55-1.30) Estimat Glomerular Filtration Rate > 60 mL/min (>60) > 60 mL/min (>60) Glucose Level 117 MG/DL (74-106) H 111 MG/DL (74-106) H Lactic Acid Level 3.90 mmol/L (0.4-2.0) H 3.50 mmol/L (0.66-2.22) H 3.00 mmol/L (0.4-2.0) H 3.10 mmol/L (0.66-2.22) H Calcium Level 6.2 MG/DL (8.5-10.1) L 6.7 MG/DL (8.5-10.1) L Phosphorus Level 2.0 MG/DL (2.5-4.9) L 2.4 MG/DL (2.5-4.9) L Total Bilirubin 0.4 MG/DL (0.2-1.0) 0.4 MG/DL (0.2-1.0) Aspartate Amino Transf (AST/SGOT) 32 U/L (15-37) 29 U/L (15-37) Alanine Aminotransferase (ALT/SGPT) 25 U/L (12-78) 24 U/L (12-78) Alkaline Phosphatase 68 U/L (46-116) 75 U/L (46-116) Total Protein 3.5 G/DL (6.4-8.2) L 3.2 G/DL (6.4-8.2) L Albumin 1.3 G/DL (3.4-5.0) L 1.4 G/DL (3.4-5.0) L Globulin 2.2 g/dL Albumin/Globulin Ratio 0.6 (1.0-2.7) L Vitamin D 25-Hydroxy Pending 25-Hydroxy Vitamin D2 Pending 25-Hydroxy Vitamin D3 Pending Magnesium Level 1.4 MG/DL (1.8-2.4) L Direct Bilirubin 0.1 MG/DL (0.0-0.3) Plan Problems: (1) Lightheaded (2) Hypokalemia (3) Large bowel obstruction Assessment & Plan: 64-year-old female with abdominal distention potential large bowel obstruction. Afebrile, hemodynamic stable, labs noted no leukocytosis no pain no bleeding. No prior abdominal surgeries. Nausea and emesis clear liquid. Decreased appetite. Cannot recall last flatus or BM. CT as below. No direct mass or abnormality identified but there is absolutely identifiable transition at the rectosigmoid area with proximal dilatation. A colonoscopy is warranted but though would be with definitive risk of potential perforation. GI consult pending. Replace electrolytes. N.p.o. IV fluids will await scope for findings. Conceivably may require surgical intervention. Thank you for let me participate in patient's care will follow with recommendations GI consider for scope 02/17 will be available for surgery in case of emergency high risk for perforation or complication and understands. but strongly recommend scope prior to surgery for etiology purposes. s/p ex lap. see op report recovering okay to downgrade to tele npo okay for ice chips iv fluids abx tomas to stay in until ambulatory heparin petechia plt down hold heparin scds cont abx trend labs trial liquid diet ?air leak but afebrile, hd stable, no wbc, shift improved. needs K replacement There are several circumscribed low-density nonenhancing cysts noted in the liver. The spleen is homogeneous. Gallbladder is without sludge or stone and there is no wall thickening. The pancreas is unremarkable. Adrenals are normal in morphology. The kidneys are normal in size, shape and axis. Small bowel loops are nondistended. The dominant abnormality is severe colonic distention containing air-fluid levels and stool debris. Dilated colon extends down to the rectosigmoid junction where there is an apparent transition. The rectal vault is nondistended with only a small amount of stool. No definite discernible mass is detected there is There is no free fluid or free air. No pathologic adenopathy demonstrated. Bladder is empty. There is no suspicious superficial soft tissue or osseous abnormality. IMPRESSION: SEVERE COLONIC DISTENTION WITH AIR-FLUID LEVELS AND STOOL DEBRIS. THERE IS APPARENT TRANSITION AT THE RECTOSIGMOID JUNCTION WITH A RELATIVELY EMPTY RECTAL VAULT WITH ONLY SMALL AMOUNT OF STOOL. NO DEFINITE DISCERNIBLE MASS AT THE TRANSITION POINT. RECOMMEND GI CONSULTATION AND CONSIDER COLONOSCOPY. Swapnil Brito Feb 26, 2020 12:14
[2020-02-26] MEDS ORDERED: Omnipaque-300 100ml vial INJ PRN (12:15)
--- NOTE | 2020-02-26 15:16 | Cardiac Electrophysiology PN ---
Assessment/Plan Assessment/Plan 1. Nonsustained VT 5 beats and Palpitations. Correct hypokalemia. Echo EF 55%.On Metoprolol 25 po bid 2. Sinus tach and anemia better on Metoprolol 25 po bid and after PRBC 3. Bowel obstruction. S/P ex lap, left colectomy, mobilization of splenic flexure by Dr Brito, On Clear liquid diet 4. Hypokalemia. being replaced with iv K and Mg 5. PVCs and dizziness 6. Anemia with Hb 6.9 today, getting PRBC DW RN Subjective Subjective Had 5 beats of VT 02/21/20. No more VT.HR better on Lopressor 25 bid. On Clear Liquid diet and received PRBC. Objective Last 24 Hour Vital Signs Date Time Temp Pulse Resp B/P (MAP) Pulse Ox O2 Delivery O2 Flow Rate FiO2 02/26/20 12:00 96 02/26/20 12:00 97.9 99 20 108/67 (81) 98 02/26/20 09:56 105 104/65 02/26/20 09:00 Room Air 02/26/20 08:00 98.2 105 20 104/65 (78) 98 02/26/20 08:00 104 02/26/20 04:00 97.2 108 20 109/58 (75) 95 02/26/20 04:00 104 02/26/20 00:00 97.0 107 22 108/66 (80) 98 02/26/20 00:00 103 02/25/20 21:41 102 118/72 02/25/20 21:00 Room Air 02/25/20 20:00 96.8 102 22 118/72 (87) 100 02/25/20 20:00 98 02/25/20 20:00 96.8 102 22 118/75 (89) 100 02/25/20 16:28 97 02/25/20 16:00 98.6 104 19 112/75 (87) 98 Intake and Output 02/25/20 02/26/20 19:00 07:00 Intake Total 60 ml Output Total 1100 ml 1700 ml Balance -1100 ml -1640 ml Intake Oral 60 ml Output Urine Total 1100 ml 1700 ml Laboratory Tests Test 02/25/20 16:15 02/25/20 23:40 02/26/20 06:00 02/26/20 11:20 White Blood Count 3.4 K/UL (4.8-10.8) L 3.5 K/UL (4.8-10.8) L Red Blood Count 2.49 M/UL (4.20-5.40) L 2.42 M/UL (4.20-5.40) L Hemoglobin 7.2 G/DL (12.0-16.0) L 6.9 G/DL (12.0-16.0) *L Hematocrit 21.8 % (37.0-47.0) L 20.4 % (37.0-47.0) L Mean Corpuscular Volume 87 FL (80-99) 84 FL (80-99) Mean Corpuscular Hemoglobin 29.0 PG (27.0-31.0) 28.4 PG (27.0-31.0) Mean Corpuscular Hemoglobin Concent 33.1 G/DL (32.0-36.0) 33.6 G/DL (32.0-36.0) Red Cell Distribution Width 14.5 % (11.6-14.8) 13.8 % (11.6-14.8) Platelet Count 28 K/UL (150-450) L 27 K/UL (150-450) L Mean Platelet Volume 10.2 FL (6.5-10.1) H 10.5 FL (6.5-10.1) H Neutrophils (%) (Auto) % (45.0-75.0) % (45.0-75.0) Lymphocytes (%) (Auto) % (20.0-45.0) % (20.0-45.0) Monocytes (%) (Auto) % (1.0-10.0) % (1.0-10.0) Eosinophils (%) (Auto) % (0.0-3.0) % (0.0-3.0) Basophils (%) (Auto) % (0.0-2.0) % (0.0-2.0) Differential Total Cells Counted 100 100 Neutrophils % (Manual) 83 % (45-75) H 82 % (45-75) H Lymphocytes % (Manual) 16 % (20-45) L 17 % (20-45) L Monocytes % (Manual) 1 % (1-10) 1 % (1-10) Eosinophils % (Manual) 0 % (0-3) 0 % (0-3) Basophils % (Manual) 0 % (0-2) 0 % (0-2) Band Neutrophils 0 % (0-8) 0 % (0-8) Platelet Estimate Decreased L Decreased L Platelet Morphology Normal Normal Anisocytosis 1+ 1+ Sodium Level 137 MMOL/L (136-145) 137 MMOL/L (136-145) Potassium Level 3.0 MMOL/L (3.5-5.1) L 3.6 MMOL/L (3.5-5.1) Chloride Level 105 MMOL/L (98-107) 104 MMOL/L (98-107) Carbon Dioxide Level 25 MMOL/L (21-32) 25 MMOL/L (21-32) Anion Gap 7 mmol/L (5-15) 8 mmol/L (5-15) Blood Urea Nitrogen 8 mg/dL (7-18) 9 mg/dL (7-18) Creatinine 0.6 MG/DL (0.55-1.30) 0.6 MG/DL (0.55-1.30) Estimat Glomerular Filtration Rate > 60 mL/min (>60) > 60 mL/min (>60) Glucose Level 117 MG/DL (74-106) H 111 MG/DL (74-106) H Lactic Acid Level 3.90 mmol/L (0.4-2.0) H 3.50 mmol/L (0.66-2.22) H 3.00 mmol/L (0.4-2.0) H 3.10 mmol/L (0.66-2.22) H Calcium Level 6.2 MG/DL (8.5-10.1) L 6.7 MG/DL (8.5-10.1) L Phosphorus Level 2.0 MG/DL (2.5-4.9) L 2.4 MG/DL (2.5-4.9) L Total Bilirubin 0.4 MG/DL (0.2-1.0) 0.4 MG/DL (0.2-1.0) Aspartate Amino Transf (AST/SGOT) 32 U/L (15-37) 29 U/L (15-37) Alanine Aminotransferase (ALT/SGPT) 25 U/L (12-78) 24 U/L (12-78) Alkaline Phosphatase 68 U/L (46-116) 75 U/L (46-116) Total Protein 3.5 G/DL (6.4-8.2) L 3.2 G/DL (6.4-8.2) L Albumin 1.3 G/DL (3.4-5.0) L 1.4 G/DL (3.4-5.0) L Globulin 2.2 g/dL Albumin/Globulin Ratio 0.6 (1.0-2.7) L Vitamin D 25-Hydroxy Pending 25-Hydroxy Vitamin D2 Pending 25-Hydroxy Vitamin D3 Pending Hypochromasia 4+ Spherocytes 3+ Magnesium Level 1.4 MG/DL (1.8-2.4) L Direct Bilirubin 0.1 MG/DL (0.0-0.3) Objective HEENT: No JVD Cardiovascular: RSR. No GRM Respiratory: clear Abdomen: soft, distended, non-tender. Jessica intact with no drain Extremities: no edema, no tenderness, no cyanosis Peter Quintana MD Feb 26, 2020 15:16
[2020-02-26 16:00] VITALS: BP 126/76
--- NOTE | 2020-02-26 17:05 | NUR ---
NURSE NOTES: One unite of Blood transfusion done, patient tolerated well, No adverse reaction. Vitals are stable. Will continue to monitor.
[2020-02-26] MEDS ORDERED: NS 275ml ONE (18:21)
[2020-02-26] MEDS ORDERED: Tubing IV Secondary IV ONE (18:21)
--- NOTE | 2020-02-26 18:33 | Nephrology Progress Note ---
Assessment/Plan Plan #Severe hypokalemia #Abdominal distention - bowel obstruction due to colonic mass #htn #Dehydration #HLD - s/p resection POD #6 - prbc transfusion x one unit today - monitor lactic acidic level - replete K, elvi mag - calcitriol 1mcg x1 - check vitamin D level - IVF- switch to D5NS + 40 kcl - replete K, mag and phos - on CLD - monitor lytes - avoid nephrotoxins - gen surg eval Subjective ROS Limited/Unobtainable: No Constitutional: Reports: weakness; Denies: no symptoms, chills, diaphoresis, fever, malaise, other HEENT: Denies: no symptoms, eye pain, blurred vision, tearing, double vision, ear pain, ear discharge, nose pain, nose congestion, throat pain, throat swelling, mouth pain, mouth swelling, other Genitourinary: Denies: no symptoms, burning, discharge, frequency, flank pain, hematuria, incontinence, pain, urgency, other Neurologic/Psychiatric: Denies: no symptoms, anxiety, depressed, emotional problems, headache, numbness, paresthesia, pre-existing deficit, seizure, tingling, tremors, weakness, other Subjective s/p resection POD #6 hemogobin 69 ordered one unit of prbc mag low repleted Objective Objective Last 24 Hour Vital Signs Date Time Temp Pulse Resp B/P (MAP) Pulse Ox O2 Delivery O2 Flow Rate FiO2 02/26/20 16:00 97.7 99 20 126/76 (93) 98 02/26/20 16:00 96 02/26/20 12:00 96 02/26/20 12:00 97.9 99 20 108/67 (81) 98 02/26/20 09:56 105 104/65 02/26/20 09:00 Room Air 02/26/20 08:00 98.2 105 20 104/65 (78) 98 02/26/20 08:00 104 02/26/20 04:00 97.2 108 20 109/58 (75) 95 02/26/20 04:00 104 02/26/20 00:00 97.0 107 22 108/66 (80) 98 02/26/20 00:00 103 02/25/20 21:41 102 118/72 02/25/20 21:00 Room Air 02/25/20 20:00 96.8 102 22 118/72 (87) 100 02/25/20 20:00 98 02/25/20 20:00 96.8 102 22 118/75 (89) 100 Intake and Output 02/25/20 02/26/20 19:00 07:00 Intake Total 60 ml Output Total 1100 ml 1700 ml Balance -1100 ml -1640 ml Intake Oral 60 ml Output Urine Total 1100 ml 1700 ml Laboratory Tests 02/25/20 23:40: Lactic Acid Level 3.50H 02/26/20 06:00: Lactic Acid Level 3.00H, White Blood Count 3.5L, Red Blood Count 2.42L, Hemoglobin 6.9*L, Hematocrit 20.4L, Mean Corpuscular Volume 84, Mean Corpuscular Hemoglobin 28.4, Mean Corpuscular Hemoglobin Concent 33.6, Red Cell Distribution Width 13.8, Platelet Count 27L, Mean Platelet Volume 10.5H, Neutrophils (%) (Auto) , Lymphocytes (%) (Auto) , Monocytes (%) (Auto) , Eosinophils (%) (Auto) , Basophils (%) (Auto) , Differential Total Cells Counted 100, Neutrophils % (Manual) 82H, Lymphocytes % (Manual) 17L, Monocytes % (Manual) 1, Eosinophils % (Manual) 0, Basophils % (Manual) 0, Band Neutrophils 0, Platelet Estimate DecreasedL, Platelet Morphology Normal, Hypochromasia 4+, Anisocytosis 1+, Spherocytes 3+, Sodium Level 137, Potassium Level 3.6, Chloride Level 104, Carbon Dioxide Level 25, Anion Gap 8, Blood Urea Nitrogen 9, Creatinine 0.6, Estimat Glomerular Filtration Rate > 60, Glucose Level 111H, Calcium Level 6.7L, Phosphorus Level 2.4L, Magnesium Level 1.4L, Total Bilirubin 0.4, Direct Bilirubin 0.1, Aspartate Amino Transf (AST/SGOT) 29, Alanine Aminotransferase (ALT/SGPT) 24, Alkaline Phosphatase 75, Total Protein 3.2L, Albumin 1.4L 02/26/20 11:20: Lactic Acid Level 3.10H Height (Feet): 5 Height (Inches): 4.00 Weight (Pounds): 113 Yakelin Arnett M.D. Feb 26, 2020 18:33
--- NOTE | 2020-02-26 19:30 | NUR ---
NURSE HAND-OFF REPORT: Important Events on Shift:Blood transfusion Patient Status: Stable Diet: Clear liquid Pending Orders: NA Pending Results/Labs:Morning labs Pending MD notification:NA Latest Vital Signs: Temperature 97.7 , Pulse 96 , B/P 126 /76 , Respiratory Rate 20 , O2 SAT 98 , Room Air, O2 Flow Rate 2.0 . Vital Sign Comment: Stable EKG Rhythm: Sinus Rhythm Rhythm change?: N MD Notified?: N - MD Response: Latest Scherer Fall Score: 20 Fall Risk: Low Risk Safety Measures: Call light Within Reach, Bed Alarm Zone 1, Side Rails Side Rails x3, Bed position Low and Locked. Fall Precautions: Yellow Socks Yellow Gown Patient Fall Education Report given to Maeve/RN.
--- NOTE | 2020-02-26 19:35 | NUR ---
NURSE NOTES: Day shift nurse Leni RN. Reported that the red line of the PICC is not flushing or giving blood return. Only one line is patient and work as of this time.
--- NOTE | 2020-02-26 19:35 | NUR ---
NURSE NOTES: Patient received from RYANN Farrar. Patient is currently sleeping in bed, semi-wong on low air loss mattress. Patient is on room air. Not showing any sign of acute distress. SCD device and prophylactic foam attached on bilateral heels. Leiva is patent and draining well to gravity. PICC on right upper arm running D5 1/2mEq KCl 100ml/hr as ordered. Bed is in the lowest position and locked. Call light within reach. Will continue to monitor.
[2020-02-26 20:00] VITALS: BP 124/73
[2020-02-26] MEDS: Calcium Gluconate 1gm/50ml 50 ML IVPB SCH ×2 (20:00→20:35)
[2020-02-26] MEDS: Dyna-Hex 2% Top Sol 2oz TOPIC SCH (20:01)
[2020-02-27] VITALS: BP 121/75
[2020-02-27] MEDS: Potassium Phosphate 15mm/250ml 250 ML IVPB SCH ×2 (01:52→06:37)
[2020-02-27 04:00] VITALS: BP 125/76
[2020-02-27 05:59] LABS: HEMATOCRIT 24.6 % (37.0-47.0); HEMOGLOBIN 8.5 G/DL (12.0-16.0); MEAN CORPUSCULAR VOLUME 84 FL (80-99); PLATELET COUNT 18 K/UL (150-450); RED BLOOD COUNT 2.94 M/UL (4.20-5.40); RED CELL DISTRIBUTION WIDTH 13.2 % (11.6-14.8); WHITE BLOOD COUNT 3.4 K/UL (4.8-10.8)
[2020-02-27 06:15] LABS: INR 1.1 (0.9-1.1)
[2020-02-27 06:51] LABS: ALANINE AMINOTRANSFERASE 22 U/L (12-78); ALBUMIN 1.4 G/DL (3.4-5.0); ALBUMIN/GLOBULIN RATIO 0.6 (1.0-2.7); ALKALINE PHOSPHATASE 68 U/L (46-116); ANION GAP 7 mmol/L (5-15); ASPARTATE AMINO TRANSFERASE 25 U/L (15-37); BILIRUBIN,TOTAL 0.4 MG/DL (0.2-1.0); BLOOD UREA NITROGEN 8 mg/dL (7-18); CALCIUM 6.8 MG/DL (8.5-10.1); CARBON DIOXIDE 25 MMOL/L (21-32); CHLORIDE 106 MMOL/L (98-107); CREATININE 0.6 MG/DL (0.55-1.30); PHOSPHORUS 2.8 MG/DL (2.5-4.9); POTASSIUM 3.2 MMOL/L (3.5-5.1); SODIUM 137 MMOL/L (136-145)
--- NOTE | 2020-02-27 07:05 | NUR ---
NURSE HAND-OFF REPORT: Important Events on Shift: Patient has plans for CT. Patient Status: [] Diet: NPO Pending Orders: [] Pending Results/Labs:[] Pending MD notification:[] Latest Vital Signs: Temperature 97.9 , Pulse 94 , B/P 125 /76 , Respiratory Rate 20 , O2 SAT 100 , Room Air, O2 Flow Rate 2.0 . Vital Sign Comment: [] EKG Rhythm: Sinus Rhythm Rhythm change?: N MD Notified?: N - MD Response: Latest Scherer Fall Score: 20 Fall Risk: Low Risk Safety Measures: Call light Within Reach, Bed Alarm Zone 1, Side Rails Side Rails x3, Bed position Low and Locked. Fall Precautions: Yellow Socks Yellow Gown Patient Fall Education Report given to Leni GARZON.
--- NOTE | 2020-02-27 07:30 | NUR ---
NURSE NOTES: Received report from Maeve/RN, Observed patient asleep, lying semi-wong's, resting comfortably. On room air, no acute distress/SOB noted.PICC line on right upper arm, patent and intact. Leiva draining well to gravity. On pressure release mattress for protection. Bed in low position and locked, Call light within reach. Encouraged to use call light when needed. Bed alarm is on, side rails up x3. Will continue plan of care.
[2020-02-27] MEDS ORDERED: NS 275ml ONE (07:51)
[2020-02-27] MEDS ORDERED: Tubing IV Secondary IV ONE (07:51)
--- NOTE | 2020-02-27 07:52 | Surgery Progress Note ---
Surgery Progress Note Subjective Procedure Performed ex lap left colectomy mobilization of splenic flexure omentectomy primary anastomosis Additional Comments labs noted no n/v states she feels well but is very weak states she passed flatus. CT was not done yet per report tech wanted her NPO for scan Objective Last 24 Hour Vital Signs Date Time Temp Pulse Resp B/P (MAP) Pulse Ox O2 Delivery O2 Flow Rate FiO2 02/27/20 04:00 93 02/27/20 04:00 97.9 94 20 125/76 (92) 100 02/27/20 00:00 92 02/27/20 00:00 98.1 89 20 121/75 (90) 100 02/26/20 22:13 101 124/73 02/26/20 21:00 Room Air 02/26/20 20:00 97.7 101 22 124/73 (90) 100 02/26/20 20:00 101 02/26/20 16:00 97.7 99 20 126/76 (93) 98 02/26/20 16:00 96 02/26/20 12:00 96 02/26/20 12:00 97.9 99 20 108/67 (81) 98 02/26/20 09:56 105 104/65 02/26/20 09:00 Room Air 02/26/20 08:00 98.2 105 20 104/65 (78) 98 02/26/20 08:00 104 I&O Intake and Output 02/26/20 02/27/20 19:00 07:00 Output Total 400 ml Balance -400 ml Output Urine Total 400 ml # Voids 1 Wound: clean, dry, intact Cardiovascular: RSR Respiratory: clear Abdomen: soft, distended, non-tender, decreased bowel sounds Extremities: no edema, no tenderness, no cyanosis Laboratory Tests Test 02/26/20 11:20 02/27/20 05:20 Lactic Acid Level 3.10 mmol/L (0.66-2.22) H 2.40 mmol/L (0.4-2.0) H White Blood Count 3.4 K/UL (4.8-10.8) L Red Blood Count 2.94 M/UL (4.20-5.40) L Hemoglobin 8.5 G/DL (12.0-16.0) L Hematocrit 24.6 % (37.0-47.0) L Mean Corpuscular Volume 84 FL (80-99) Mean Corpuscular Hemoglobin 29.0 PG (27.0-31.0) Mean Corpuscular Hemoglobin Concent 34.7 G/DL (32.0-36.0) Red Cell Distribution Width 13.2 % (11.6-14.8) Platelet Count 18 K/UL (150-450) L Mean Platelet Volume 14.7 FL (6.5-10.1) H Neutrophils (%) (Auto) % (45.0-75.0) Lymphocytes (%) (Auto) % (20.0-45.0) Monocytes (%) (Auto) % (1.0-10.0) Eosinophils (%) (Auto) % (0.0-3.0) Basophils (%) (Auto) % (0.0-2.0) Neutrophils % (Manual) Pending Lymphocytes % (Manual) Pending Platelet Estimate Pending Platelet Morphology Pending Erythrocyte Sedimentation Rate 41 MM/HR (0-30) H Prothrombin Time 12.5 SEC (9.30-11.50) H Prothromb Time International Ratio 1.1 (0.9-1.1) Activated Partial Thromboplast Time 28 SEC (23-33) Sodium Level 137 MMOL/L (136-145) Potassium Level 3.2 MMOL/L (3.5-5.1) L Chloride Level 106 MMOL/L (98-107) Carbon Dioxide Level 25 MMOL/L (21-32) Anion Gap 7 mmol/L (5-15) Blood Urea Nitrogen 8 mg/dL (7-18) Creatinine 0.6 MG/DL (0.55-1.30) Estimat Glomerular Filtration Rate > 60 mL/min (>60) Glucose Level 103 MG/DL (74-106) Calcium Level 6.8 MG/DL (8.5-10.1) L Phosphorus Level 2.8 MG/DL (2.5-4.9) Magnesium Level 2.1 MG/DL (1.8-2.4) Total Bilirubin 0.4 MG/DL (0.2-1.0) Aspartate Amino Transf (AST/SGOT) 25 U/L (15-37) Alanine Aminotransferase (ALT/SGPT) 22 U/L (12-78) Alkaline Phosphatase 68 U/L (46-116) C-Reactive Protein, Quantitative 10.6 mg/dL (0.00-0.90) H Total Protein 3.6 G/DL (6.4-8.2) L Albumin 1.4 G/DL (3.4-5.0) L Globulin 2.2 g/dL Albumin/Globulin Ratio 0.6 (1.0-2.7) L Amylase Level 104 U/L (25-115) Lipase 614 U/L (73-393) H Plan Problems: (1) Lightheaded (2) Hypokalemia (3) Large bowel obstruction Assessment & Plan: 64-year-old female with abdominal distention potential large bowel obstruction. Afebrile, hemodynamic stable, labs noted no leukocytosis no pain no bleeding. No prior abdominal surgeries. Nausea and emesis clear liquid. Decreased appetite. Cannot recall last flatus or BM. CT as below. No direct mass or abnormality identified but there is absolutely identifiable transition at the rectosigmoid area with proximal dilatation. A colonoscopy is warranted but though would be with definitive risk of potential perforation. GI consult pending. Replace electrolytes. N.p.o. IV fluids will await scope for findings. Conceivably may require surgical intervention. Thank you for let me participate in patient's care will follow with recommendations GI consider for scope 02/17 will be available for surgery in case of emergency high risk for perforation or complication and understands. but strongly recommend scope prior to surgery for etiology purposes. s/p ex lap. see op report recovering okay to downgrade to tele npo okay for ice chips iv fluids abx tomas to stay in until ambulatory heparin petechia plt down hold heparin scds cont abx trend labs trial liquid diet ?air leak but afebrile, hd stable, no wbc, shift improved. needs K replacement plt trending down petechia CT pending electrolytes improved CT with mets to omentum likely was obstructed for significant period of time prior to surgery and tumor with mets. liver okay but post op she is declining. unfortunately prognosis is guarded. asked her if she wanted me to call anyone and declined There are several circumscribed low-density nonenhancing cysts noted in the liver. The spleen is homogeneous. Gallbladder is without sludge or stone and there is no wall thickening. The pancreas is unremarkable. Adrenals are normal in morphology. The kidneys are normal in size, shape and axis. Small bowel loops are nondistended. The dominant abnormality is severe colonic distention containing air-fluid levels and stool debris. Dilated colon extends down to the rectosigmoid junction where there is an apparent transition. The rectal vault is nondistended with only a small amount of stool. No definite discernible mass is detected there is There is no free fluid or free air. No pathologic adenopathy demonstrated. Bladder is empty. There is no suspicious superficial soft tissue or osseous abnormality. IMPRESSION: SEVERE COLONIC DISTENTION WITH AIR-FLUID LEVELS AND STOOL DEBRIS. THERE IS APPARENT TRANSITION AT THE RECTOSIGMOID JUNCTION WITH A RELATIVELY EMPTY RECTAL VAULT WITH ONLY SMALL AMOUNT OF STOOL. NO DEFINITE DISCERNIBLE MASS AT THE TRANSITION POINT . RECOMMEND GI CONSULTATION AND CONSIDER COLONOSCOPY. (4) Colon cancer Swapnil Brito Feb 27, 2020 07:52
[2020-02-27 08:00] VITALS: BP 115/69
--- NOTE | 2020-02-27 08:07 | NUR ---
CASE MANAGEMENT:REVIEW 02/27/20 SI:POD #8 S/P LEFT COLECTOMY. OMENTECTOMY 97.9 94 20 125/76 100% ON RA H/H-8.5/24.6 PLT-18 K-3.2 LACTIC ACID+2.40 IS: IV K-PHOS Q4HRS X2 BAGS LOPRESSOR PO Q12 IVF@100/HR : TELEMETRY STATUS PLAN: SINUS RHYTHM SO FAR TODAY H/H-6.9/20.4 YESTERDAY ~ TRANSFUSED 1 UNIT PRBC'S CHEST XRAY FOR TODAY TRIAL LIQUID DIET
--- NOTE | 2020-02-27 08:16 | NUR ---
CASE MANAGEMENT:REVIEW 02/27/20 SI:POD #9 S/P LEFT COLECTOMY. OMENTECTOMY 97.9 94 20 125/76 100% ON RA H/H-8.5/24.6 PLT-18 K-3.2 LACTIC ACID+2.40 IS: IV K-PHOS Q4HRS X2 BAGS LOPRESSOR PO Q12 IVF@100/HR : TELEMETRY STATUS PLAN: SINUS RHYTHM SO FAR TODAY H/H-6.9/20.4 YESTERDAY ~ TRANSFUSED 1 UNIT PRBC'S CHEST XRAY FOR TODAY TRIAL LIQUID DIET
--- NOTE | 2020-02-27 09:18 | NUR ---
RD ASSESSMENT & RECOMMENDATIONS SEE CARE ACTIVITY FOR COMPLETE ASSESSMENT DAILY ESTIMATED NEEDS: Needs based on GI, cardiac, surgery 50.4kg 25-30 kcals/kg [id number] total kcals 1-2 g protein/kg 50-100 g total protein 25-30 mL/kg [id number] total fluid mLs NUTRITION DIAGNOSIS: Altered GI fxn r/t bowel obstruction as evidenced by CT scan, last bm unknown, adm w/ distended abdomen, N/V w/ recent poor po intake, s/p ex lap, left colectomy and partial omentectomy, on CLD w/ poor intake, now NPO for CT. CURRENT DIET:CLD- now NPO for CT PO DIET RECOMMENDATIONS: Initiate diet per surgeon TPN Comment: REC TPN for continued NPO and poor acceptance of clears ADDITIONAL RECOMMENDATIONS: 1) Monitor NPO status (Day 8, POD #5) -> RECOMMEND TPN DUE TO PROLONGED NPO STATUS 2) Monitor lytes, replete as needed-> low K, phos, mag 3) Continue added D5 IVF while NPO to prevent hypoglycemia 4) Calibrated bedscale wt 5) Ensure Clear w/ CLD (TID)
[2020-02-27] MEDS: D5NS w/KCl 40mEq 1000ml 1,000 ML IV SCH ×2 (09:38→19:00)
[2020-02-27 12:00] VITALS: BP 127/71
--- NOTE | 2020-02-27 12:52 | Cardiac Electrophysiology PN ---
Assessment/Plan Assessment/Plan 1. Nonsustained VT 5 beats and Palpitations. No recurrence after hypokalemia corrected. Echo EF 55%.On Metoprolol 25 po bid 2. Sinus tach and anemia better on Metoprolol 25 po bid and after PRBC 3. Bowel obstruction. S/P ex lap, left colectomy, mobilization of splenic flexure by Dr Brito, On Clear liquid diet 4. Hypokalemia replaced with iv K and Mg. Today 3.2 5. PVCs and dizziness 6. Anemia with Hb 6.9 s/p PRBC yesterday again. Getting CT abdomen and pelvis today DW RN Subjective Subjective No more VT since the 5 beats of VT 02/21/20 .HR better on Lopressor 25 bid. On Clear Liquid diet and received PRBC. NPO for CT abdomen and Pelvis Objective Last 24 Hour Vital Signs Date Time Temp Pulse Resp B/P (MAP) Pulse Ox O2 Delivery O2 Flow Rate FiO2 02/27/20 12:00 84 02/27/20 12:00 97.7 83 20 127/71 (89) 96 02/27/20 09:37 94 115/69 02/27/20 09:00 Room Air 02/27/20 08:00 97.7 94 20 115/69 (84) 100 02/27/20 08:00 92 02/27/20 04:00 93 02/27/20 04:00 97.9 94 20 125/76 (92) 100 02/27/20 00:00 92 02/27/20 00:00 98.1 89 20 121/75 (90) 100 02/26/20 22:13 101 124/73 02/26/20 21:00 Room Air 02/26/20 20:00 97.7 101 22 124/73 (90) 100 02/26/20 20:00 101 02/26/20 16:00 97.7 99 20 126/76 (93) 98 02/26/20 16:00 96 l Intake and Output 02/26/20 02/27/20 19:00 07:00 Output Total 400 ml Balance -400 ml Output Urine Total 400 ml # Voids 1 Laboratory Tests Test 02/27/20 05:20 02/27/20 07:40 White Blood Count 3.4 K/UL (4.8-10.8) L Red Blood Count 2.94 M/UL (4.20-5.40) L Hemoglobin 8.5 G/DL (12.0-16.0) L Hematocrit 24.6 % (37.0-47.0) L Mean Corpuscular Volume 84 FL (80-99) Mean Corpuscular Hemoglobin 29.0 PG (27.0-31.0) Mean Corpuscular Hemoglobin Concent 34.7 G/DL (32.0-36.0) Red Cell Distribution Width 13.2 % (11.6-14.8) Platelet Count 18 K/UL (150-450) L Mean Platelet Volume 14.7 FL (6.5-10.1) H Neutrophils (%) (Auto) % (45.0-75.0) Lymphocytes (%) (Auto) % (20.0-45.0) Monocytes (%) (Auto) % (1.0-10.0) Eosinophils (%) (Auto) % (0.0-3.0) Basophils (%) (Auto) % (0.0-2.0) Differential Total Cells Counted 100 Neutrophils % (Manual) 76 % (45-75) H Lymphocytes % (Manual) 21 % (20-45) Monocytes % (Manual) 3 % (1-10) Eosinophils % (Manual) 0 % (0-3) Basophils % (Manual) 0 % (0-2) Band Neutrophils 0 % (0-8) Platelet Estimate Decreased L Platelet Morphology Normal Hypochromasia 2+ Erythrocyte Sedimentation Rate 41 MM/HR (0-30) H Prothrombin Time 12.5 SEC (9.30-11.50) H Prothromb Time International Ratio 1.1 (0.9-1.1) Activated Partial Thromboplast Time 28 SEC (23-33) Sodium Level 137 MMOL/L (136-145) Potassium Level 3.2 MMOL/L (3.5-5.1) L Chloride Level 106 MMOL/L (98-107) Carbon Dioxide Level 25 MMOL/L (21-32) Anion Gap 7 mmol/L (5-15) Blood Urea Nitrogen 8 mg/dL (7-18) Creatinine 0.6 MG/DL (0.55-1.30) Estimat Glomerular Filtration Rate > 60 mL/min (>60) Glucose Level 103 MG/DL (74-106) Lactic Acid Level 2.40 mmol/L (0.4-2.0) H 2.60 mmol/L (0.66-2.22) H Calcium Level 6.8 MG/DL (8.5-10.1) L Phosphorus Level 2.8 MG/DL (2.5-4.9) Magnesium Level 2.1 MG/DL (1.8-2.4) Total Bilirubin 0.4 MG/DL (0.2-1.0) Aspartate Amino Transf (AST/SGOT) 25 U/L (15-37) Alanine Aminotransferase (ALT/SGPT) 22 U/L (12-78) Alkaline Phosphatase 68 U/L (46-116) C-Reactive Protein, Quantitative 10.6 mg/dL (0.00-0.90) H Total Protein 3.6 G/DL (6.4-8.2) L Albumin 1.4 G/DL (3.4-5.0) L Globulin 2.2 g/dL Albumin/Globulin Ratio 0.6 (1.0-2.7) L Amylase Level 104 U/L (25-115) Lipase 614 U/L (73-393) H Objective HEENT: No JVD Cardiovascular: RSR. No GRM Respiratory: clear Abdomen: soft, distended, non-tender. [place] intact with no drain Extremities: no edema, no tenderness, no cyanosis Peter Quintana MD Feb 27, 2020 12:52
--- NOTE | 2020-02-27 12:58 | Nephrology Progress Note ---
Assessment/Plan Plan #Severe hypokalemia #Abdominal distention - bowel obstruction due to colonic mass- s/p resection #lactic acidosis #htn #Dehydration #HLD - s/p resection POD #7 - s/p prbc transfusion - monitor lactic acidic level - replete K, elvi mag - calcitriol 1mcg x1 - check vitamin D level - IVF- switch to D5NS + 40 kcl - replete K, mag and phos - on CLD - monitor lytes - avoid nephrotoxins - gen surg eval Subjective ROS Limited/Unobtainable: No Constitutional: Reports: weakness HEENT: Denies: no symptoms, eye pain, blurred vision, tearing, double vision, ear pain, ear discharge, nose pain, nose congestion, throat pain, throat swelling, mouth pain, mouth swelling, other Genitourinary: Denies: no symptoms, burning, discharge, frequency, flank pain, hematuria, incontinence, pain, urgency, other Neurologic/Psychiatric: Denies: no symptoms, anxiety, depressed, emotional problems, headache, numbness, paresthesia, pre-existing deficit, seizure, tingling, tremors, weakness, other Subjective s/p resection POD #7 hemoglobin stable s/p one unit of prbc K and elvi low repleted Objective Objective Last 24 Hour Vital Signs Date Time Temp Pulse Resp B/P (MAP) Pulse Ox O2 Delivery O2 Flow Rate FiO2 02/27/20 12:00 84 02/27/20 12:00 97.7 83 20 127/71 (89) 96 02/27/20 09:37 94 115/69 02/27/20 09:00 Room Air 02/27/20 08:00 97.7 94 20 115/69 (84) 100 02/27/20 08:00 92 02/27/20 04:00 93 02/27/20 04:00 97.9 94 20 125/76 (92) 100 02/27/20 00:00 92 02/27/20 00:00 98.1 89 20 121/75 (90) 100 02/26/20 22:13 101 124/73 02/26/20 21:00 Room Air 02/26/20 20:00 97.7 101 22 124/73 (90) 100 02/26/20 20:00 101 02/26/20 16:00 97.7 99 20 126/76 (93) 98 02/26/20 16:00 96 Intake and Output 02/26/20 02/27/20 19:00 07:00 Output Total 400 ml Balance -400 ml Output Urine Total 400 ml # Voids 1 Laboratory Tests 02/27/20 05:20: White Blood Count 3.4L, Red Blood Count 2.94L, Hemoglobin 8.5L, Hematocrit 24.6L , Mean Corpuscular Volume 84, Mean Corpuscular Hemoglobin 29.0, Mean Corpuscular Hemoglobin Concent 34.7, Red Cell Distribution Width 13.2, Platelet Count 18L, Mean Platelet Volume 14.7H, Neutrophils (%) (Auto) , Lymphocytes (%) (Auto) , Monocytes (%) (Auto) , Eosinophils (%) (Auto) , Basophils (%) (Auto) , Differential Total Cells Counted 100, Neutrophils % (Manual) 76H, Lymphocytes % (Manual) 21, Monocytes % (Manual) 3, Eosinophils % (Manual) 0, Basophils % (Manual) 0, Band Neutrophils 0, Platelet Estimate DecreasedL, Platelet Morphology Normal, Hypochromasia 2+, Erythrocyte Sedimentation Rate 41H, Prothrombin Time 12.5H, Prothromb Time International Ratio 1.1, Activated Parti al Thromboplast Time 28, Sodium Level 137, Potassium Level 3.2L, Chloride Level 106, Carbon Dioxide Level 25, Anion Gap 7, Blood Urea Nitrogen 8, Creatinine 0.6, Estimat Glomerular Filtration Rate > 60, Glucose Level 103, Lactic Acid Level 2.40H, Calcium Level 6.8L, Phosphorus Level 2.8, Magnesium Level 2.1, Total Bilirubin 0.4, Aspartate Amino Transf (AST/SGOT) 25, Alanine Aminotransferase (ALT/SGPT) 22, Alkaline Phosphatase 68, C-Reactive Protein, Quantitative 10.6H, Total Protein 3.6L, Albumin 1.4L, Globulin 2.2, Albumin/Globulin Ratio 0.6L, Amylase Level 104, Lipase 614H 02/27/20 07:40: Lactic Acid Level 2.60H Height (Feet): 5 Height (Inches): 4.00 Weight (Pounds): 113 Yakelin Arnett M.D. Feb 27, 2020 12:58
--- NOTE | 2020-02-27 13:37 | Consultation ---
History of Present Illness General Chief Complaint: Dizziness Present Illness Allergies: Coded Allergies: No Known Allergies (Unverified , 02/15/20) Medication History Scheduled Hydrochlorothiazide* (Hydrochlorothiazide*), 25 MG ORAL DAILY, (Reported) Patient History Healthcare decision maker Resuscitation status Advanced Directive on File Physical Exam Last 24 Hour Vital Signs Date Time Temp Pulse Resp B/P (MAP) Pulse Ox O2 Delivery O2 Flow Rate FiO2 02/27/20 12:00 84 02/27/20 12:00 97.7 83 20 127/71 (89) 96 02/27/20 09:37 94 115/69 02/27/20 09:00 Room Air 02/27/20 08:00 97.7 94 20 115/69 (84) 100 02/27/20 08:00 92 02/27/20 04:00 93 02/27/20 04:00 97.9 94 20 125/76 (92) 100 02/27/20 00:00 92 02/27/20 00:00 98.1 89 20 121/75 (90) 100 02/26/20 22:13 101 124/73 02/26/20 21:00 Room Air 02/26/20 20:00 97.7 101 22 124/73 (90) 100 02/26/20 20:00 101 02/26/20 16:00 97.7 99 20 126/76 (93) 98 02/26/20 16:00 96 Intake and Output 02/26/20 02/27/20 19:00 07:00 Output Total 400 ml Balance -400 ml Output Urine Total 400 ml # Voids 1 Laboratory Tests Test 02/27/20 05:20 02/27/20 07:40 White Blood Count 3.4 K/UL (4.8-10.8) L Red Blood Count 2.94 M/UL (4.20-5.40) L Hemoglobin 8.5 G/DL (12.0-16.0) L Hematocrit 24.6 % (37.0-47.0) L Mean Corpuscular Volume 84 FL (80-99) Mean Corpuscular Hemoglobin 29.0 PG (27.0-31.0) Mean Corpuscular Hemoglobin Concent 34.7 G/DL (32.0-36.0) Red Cell Distribution Width 13.2 % (11.6-14.8) Platelet Count 18 K/UL (150-450) L Mean Platelet Volume 14.7 FL (6.5-10.1) H Neutrophils (%) (Auto) % (45.0-75.0) Lymphocytes (%) (Auto) % (20.0-45.0) Monocytes (%) (Auto) % (1.0-10.0) Eosinophils (%) (Auto) % (0.0-3.0) Basophils (%) (Auto) % (0.0-2.0) Differential Total Cells Counted 100 Neutrophils % (Manual) 76 % (45-75) H Lymphocytes % (Manual) 21 % (20-45) Monocytes % (Manual) 3 % (1-10) Eosinophils % (Manual) 0 % (0-3) Basophils % (Manual) 0 % (0-2) Band Neutrophils 0 % (0-8) Platelet Estimate Decreased L Platelet Morphology Normal Hypochromasia 2+ Erythrocyte Sedimentation Rate 41 MM/HR (0-30) H Prothrombin Time 12.5 SEC (9.30-11.50) H Prothromb Time International Ratio 1.1 (0.9-1.1) Activated Partial Thromboplast Time 28 SEC (23-33) Sodium Level 137 MMOL/L (136-145) Potassium Level 3.2 MMOL/L (3.5-5.1) L Chloride Level 106 MMOL/L (98-107) Carbon Dioxide Level 25 MMOL/L (21-32) Anion Gap 7 mmol/L (5-15) Blood Urea Nitrogen 8 mg/dL (7-18) Creatinine 0.6 MG/DL (0.55-1.30) Estimat Glomerular Filtration Rate > 60 mL/min (>60) Glucose Level 103 MG/DL (74-106) Lactic Acid Level 2.40 mmol/L (0.4-2.0) H 2.60 mmol/L (0.66-2.22) H Calcium Level 6.8 MG/DL (8.5-10.1) L Phosphorus Level 2.8 MG/DL (2.5-4.9) Magnesium Level 2.1 MG/DL (1.8-2.4) Total Bilirubin 0.4 MG/DL (0.2-1.0) Aspartate Amino Transf (AST/SGOT) 25 U/L (15-37) Alanine Aminotransferase (ALT/SGPT) 22 U/L (12-78) Alkaline Phosphatase 68 U/L (46-116) C-Reactive Protein, Quantitative 10.6 mg/dL (0.00-0.90) H Total Protein 3.6 G/DL (6.4-8.2) L Albumin 1.4 G/DL (3.4-5.0) L Globulin 2.2 g/dL Albumin/Globulin Ratio 0.6 (1.0-2.7) L Amylase Level 104 U/L (25-115) Lipase 614 U/L (73-393) H Height (Feet): 5 Height (Inches): 4.00 Weight (Pounds): 113 Medications Current Medications Medications (Trade) Dose Ordered Sig/Fozia Route PRN Reason Start Time Stop Time Status Last Admin Dose Admin Acetaminophen (Tylenol) 650 mg Q6H PRN ORAL Mild Pain (Pain Scale 1-3) 02/18/20 17:15 03/19/20 17:14 Barium Sulfate (Readi-Cat 2) 450 ml NOW PRN ORAL Radiology Procedure 02/26/20 12:15 02/28/20 12:14 Barium Sulfate (Readi-Cat 2) 450 ml NOW PRN ORAL Radiology Procedure 02/27/20 08:15 02/29/20 08:14 Calcium Gluconate/ Sodium Chloride 50 ml @ 50 mls/hr Q1H IVPB 02/27/20 14:00 02/27/20 15:59 Chlorhexidine Gluconate (Gail-Hex 2%) 1 applic DAILY@2000 TOPIC 02/25/20 20:00 05/25/20 19:59 02/26/20 20:01 Dextrose/ Electrolytes 1,000 ml @ 100 mls/hr Q10H IV 02/24/20 11:00 03/25/20 10:59 02/27/20 09:38 Diphenhydramine HCl (Benadryl) 12.5 mg Q6H PRN IVP Itching/Pruritis 02/18/20 17:15 03/19/20 17:14 Iohexol (OMNIPAQUE-300 100ml) 100 ml NOW PRN INJ Radiology Procedure 02/26/20 12:15 02/28/20 12:14 Meclizine HCl (Antivert) 25 mg TID PRN ORAL for dizziness 02/20/20 20:30 03/21/20 20:29 Metoprolol Tartrate (Lopressor) 25 mg Q12HR ORAL 02/24/20 21:00 05/24/20 20:59 02/27/20 09:37 Ondansetron HCl (Zofran) 4 mg Q6H PRN IVP Nausea & Vomiting 02/18/20 17:15 03/19/20 17:14 Potassium Chloride 100 ml @ 50 mls/hr ONCE ONCE IVPB 02/27/20 13:30 02/27/20 15:29 Promethazine HCl 50 mg/Sodium Chloride 111 ml @ 222 mls/hr Q6H PRN IVPB for dizziness 02/20/20 20:45 03/21/20 20:44 02/20/20 21:42 Assessment/Plan Assessment/Plan: Oncology Consultation REQ MD: Awais DOS: 02/27/2020 RFC: Metastatic adenoca of colon ID [id number] old patient states that she has felt lightheaded, fatigued and has had a lack of appetite for about the past week. She states that this is lightheadedness and not vertigo. She has had some nausea but denies vomiting. She denies fever or chills. She denies dysuria or hematuria. She denies abdominal pain. She denies headache or neck pain. She denies cough or congestion. She denies chest pain or shortness of breath. She denies trauma or falls. She has no other complaints. Reviewed surgical op report and path report, extensive disease, poor functional status, now team wants to know if will benefit from chemo, plt 18, remarkedly low. Coded Allergies: No Known Allergies (Unverified , 02/15/20) COVID-19 Screening Contact w/high risk pt: No Experienced COVID-19 symptoms?: No COVID-19 Testing performed METHODS AND PROCEDURES ANALYST: No Patient History Past Medical History: see triage record, HTN Social History: Denies: smoking, alcohol use, drug use Reviewed Nursing Documentation: PMH: Agreed; PSxH: Agreed Nursing Documentation-PMH Past Medical History: No History, Except For Hx Hypertension: Yes ROS (review of systems): Constitutional: No fever, no chills, no night sweats, no fatigue Skin: No rashes, lumps, itchiness, dryness HEENT: No HERNANDEZ, ear ache, visual changes, double vision, nosebleeds Breasts: No lumps, pain, discharge Pulmonary: No cough, sputum, shortness of breath, coughing up blood Cardiovascular: No chest pain, tightness, palpitations, syncope, PND GI: No nausea, vomiting, diarrhea, melena, hematochezia, change in appetite, : No dysuria, frequency, urgency, urinary incontinence, foamy urine Musculoskeletal: No joint swelling or muscle pain, trauma, back pain Neurologic: No dizziness, fainting, seizures, changes in smell or taste Psychiatric: No nervousness, stress, or depression, anxiety, hallucinations Endocrine: No weight change, heat or cold intolerance, tremor, insomnia Physical Exam: Vitals: reviewed General: NAD HEENT: nc, at Neck: supple Chest: clear breath sounds bilaterally Cardiovascular: RRR, no s3, s4 Abdomen: soft, nontender, nd, ++surgical site noted, c/d/i, healing ++ Extremities: no cce, normal range of motion Neuro: alert and oriented Labs: reviewed Imaging: noted Assessment and Recs # Stage IV adenocarcinoma of the colon - biopsy report shows pT3, N2b, M1, lesion with omental metastasis, tumor markers pending as well asct a/p --> operative report reviewed, per surg, now POD 8 --> currently functional status very poor, at this time hold off further rx in re to chemo --> if functional status improves consider single agent PO drug xeloda and if improves further FOLFOX (combo) --> tumor markers ordered --> Ct a/p ordered, per surg --> appreciate surgical care # Thrombocytopenia - potential causes multifactorial, evaluate liver and viral etiologies to begin, severe and acute, did get heparin --> lactic acid 2.6, r/o sepsis --> Hep panel and HIV ordered ==> hit ab pending --> ct a/p pending --> Peripheral smear ordered to evaluate for blasts /schistocytes --> abx and other meds have been reviewed --> transfuse to keep plt >20k --> meds reviewed --> plt 212-->30-->18 # Large bowel obstruction --> due to above cancer # Hypokalemia --> replete with k # PALMER --> hypovolemic, now improved # Dvt ppx scds The timing of this note does not necessarily reflect the time of the patient was seen. Greatly appreciate consultation. Gustavo Mon MD Feb 27, 2020 13:37
[2020-02-27] MEDS: Calcium Gluconate 1gm/50ml 50 ML IVPB SCH ×2 (13:52→14:50)
--- NOTE | 2020-02-27 14:17 | Diagnostic Imaging Report ---
CT ABDOMEN + PELVIS Without Contrast HISTORY: Abdominal distention TECHNIQUE: One or more of the following dose reduction techniques were used: automated exposure control, adjustment of the mA and/or kV according to patient size, use of iterative reconstruction technique. One or more of the following dose reduction techniques were used: automated exposure control, adjustment of the mA and/or kV according to patient size, use of iterative reconstruction technique. Total Exam volume computed tomography dose index (CTDIvol) = 6.1 mGy and Dose Length Product (DLP) = 343.4 mGY-c. Axial CT images of the abdomen and pelvis obtained without contrast with coronal and sagittal reconstructions. COMPARISON: February 15, 2020 CT abdomen and pelvis FINDINGS: Diffuse soft tissue edema with bilateral lower lobe consolidations and pleural effusions with normal heart size. Lung bases appear worse from the prior exam. Hepatic cysts demonstrated. Spleen appears small with no acute abnormality. Hyperdense fluid seen in the gallbladder. Pancreas demonstrates no definite inflammatory changes. Adrenal glands are unremarkable. Distended fluid-filled stomach with fluid in the small bowel and large bowel with diffuse soft tissue edema. Free fluid seen in the abdomen and pelvis. Degenerative changes are present. No hydronephrosis appreciated. Aortic atherosclerosis. IVC is unremarkable. Cutaneous wing demonstrated. Large amount of fluid and stool seen in the distal colon and rectum. Leiva catheter within the urinary bladder with underdistended appearance. Diffuse degenerative changes and osteopenia sclerotic lesions within the ribs and within the sacrum. No acute fractures appreciated. Anterior abdominal free air demonstrated which may represent recent postop status but cannot exclude bowel leak. IMPRESSION: Worsening bilateral lower lobe consolidations and pleural effusions with diffuse edema of the subcutaneous tissues. Free fluid seen in the abdomen and pelvis with multiple fluid-filled loops of small and large bowel which may be associated with ileus or enteritis without focal transition point. Lung bases appear worse from the prior exam. Increased free fluid within the abdomen. Decreased distention of the large bowel from the prior exam. Postop changes demonstrated. Cutaneous wing are present. Anterior abdominal free air demonstrated.
[2020-02-27 16:00] VITALS: BP 110/74
--- NOTE | 2020-02-27 19:25 | NUR ---
NURSE HAND-OFF REPORT: Important Events on Shift:[NA] Patient Status: [Lethargic] Diet: [Clear liquid diet] Pending Orders: [NA] Pending Results/Labs:[Morning labs] Pending MD notification:[NA] Latest Vital Signs: Temperature 98.1 , Pulse 88 , B/P 110 /74 , Respiratory Rate 20 , O2 SAT 98 , Room Air, O2 Flow Rate 2.0 . Vital Sign Comment: [stable] EKG Rhythm: Sinus Rhythm Rhythm change?: N MD Notified?: N - MD Response: Latest Scherer Fall Score: 20 Fall Risk: Low Risk Safety Measures: Call light Within Reach, Bed Alarm Zone 1, Side Rails Side Rails x3, Bed position Low and Locked. Fall Precautions: Yellow Socks Yellow Gown Patient Fall Education Report given to [Gretel/RN].
--- NOTE | 2020-02-27 19:30 | NUR ---
NURSE NOTES: Received pt and report from RYANN Farrar. Observed pt resting in bed with both eyes closed; arousable to voice. Pt is A/Ox2. assistant mechanic is in placed; pt is SR. IV site intact, asymptomatic, and patent; running D5 NS w/KCL 40meq @100cc/hr. Bed is in the lowest position and locked. Call light and bedside table is within reach. No signs/symptoms of acute distress noted. Will continue plan of care.
[2020-02-27 20:00] VITALS: BP 131/71
[2020-02-27] MEDS: Dyna-Hex 2% Top Sol 2oz TOPIC SCH (20:54)
[2020-02-28] VITALS: BP 124/66
--- NOTE | 2020-02-28 02:45 | NUR ---
NURSE NOTES: Observed pt resting in bed with both eyes closed; arousable to voice. No acute distress noted.
[2020-02-28 04:00] VITALS: BP 112/71
[2020-02-28] MEDS: D5NS w/KCl 40mEq 1000ml 1,000 ML IV SCH ×2 (05:35→14:46)
[2020-02-28 08:00] VITALS: BP 143/77
--- NOTE | 2020-02-28 08:08 | NUR ---
NURSE NOTES: Received report from RYANN Majano. Observed pt sleeping, arousable to voice, breathing even and unlabored in RA, no s/sx of acute distress. Per NOC RN, PICC red lumen is clogged and Dr Brito is aware, other lumen working okay, running IVF as ordered. technical healthcare consultant will come to try draw blood. Bed on lowest position, call light within reach. Will continue plan of care.
--- NOTE | 2020-02-28 08:14 | NUR ---
NURSE HAND-OFF REPORT: Important Events on Shift: Pt had one small BM. Patient Status: Stable Diet: Clear Liquid Pending Orders: Platelets replacement? Pending Results/Labs: AM Labs Pending MD notification: PLT 18, endorsed to Dayshift RN Latest Vital Signs: Temperature 98.4 , Pulse 100 , B/P 112 /71 , Respiratory Rate 20 , O2 SAT 98 , Room Air, O2 Flow Rate 2.0 . EKG Rhythm: Sinus Rhythm Rhythm change?: N Latest [place] Fall Score: 20 Fall Risk: Low Risk Safety Measures: Call light Within Reach, Bed Alarm Zone 1, Side Rails Side Rails x3, Bed position Low and Locked. Fall Precautions: Yellow Socks Yellow Gown Door Sign Patient Fall Education Report given to RYANN Hutchins.
[2020-02-28 08:41] LABS: HEMATOCRIT 27.4 % (37.0-47.0); HEMOGLOBIN 9.5 G/DL (12.0-16.0); MEAN CORPUSCULAR VOLUME 84 FL (80-99); PLATELET COUNT 20 K/UL (150-450); RED BLOOD COUNT 3.26 M/UL (4.20-5.40); RED CELL DISTRIBUTION WIDTH 12.9 % (11.6-14.8); WHITE BLOOD COUNT 3.3 K/UL (4.8-10.8)
--- NOTE | 2020-02-28 08:53 | NUR ---
CASE MANAGEMENT:REVIEW 02/28/20 SI:POD #10 S/P LEFT COLECTOMY. OMENTECTOMY 98.4 94 20 112/71 98% ON RA LABS DRAWN @ 0810 AND ARE CURRENTLY PENDING IS: IVF@100/HR LOPRESSOR PO Q12 : TELEMETRY STATUS PLAN: CLEAR LIQUID DIET LABS PENDING FOR CANCER MARKERS
[2020-02-28 08:55] LABS: ALANINE AMINOTRANSFERASE 21 U/L (12-78); ALBUMIN 1.5 G/DL (3.4-5.0); ALBUMIN/GLOBULIN RATIO 0.6 (1.0-2.7); ALKALINE PHOSPHATASE 76 U/L (46-116); ANION GAP 8 mmol/L (5-15); ASPARTATE AMINO TRANSFERASE 20 U/L (15-37); BILIRUBIN,TOTAL 0.5 MG/DL (0.2-1.0); BLOOD UREA NITROGEN 7 mg/dL (7-18); CALCIUM 7.3 MG/DL (8.5-10.1); CARBON DIOXIDE 24 MMOL/L (21-32); CHLORIDE 107 MMOL/L (98-107); CREATININE 0.6 MG/DL (0.55-1.30); PHOSPHORUS 3.2 MG/DL (2.5-4.9); POTASSIUM 3.6 MMOL/L (3.5-5.1); SODIUM 139 MMOL/L (136-145)
--- NOTE | 2020-02-28 09:42 | Cardiac Electrophysiology PN ---
Assessment/Plan Assessment/Plan 1. Nonsustained VT 5 beats and Palpitations. No recurrence after hypokalemia corrected. Echo EF 55%.On Metoprolol 25 po bid 2. Sinus tach and anemia better on Metoprolol 25 po bid and after PRBC 3. Bowel obstruction. S/P ex lap, left colectomy, mobilization of splenic flexure by Dr Brito, On Clear liquid diet CT abdomen Free fluid seen in the abdomen and pelvis with multiple fluid- filled loops of small and large bowel which may be associated with ileus or enteritis without focal transition point. Lung bases appear worse from the prior exam. Increased free fluid within the abdomen 4. Hypokalemia replaced with iv K and Mg. 5. PVCs and dizziness 6. Anemia with Hb 6.9 s/p PRBC 02/26/20 again. S/P CT abdomen and pelvis yeste rday DW RN Subjective Subjective No more VT since the 5 beats of VT 02/21/20. In NSR on Lopressor 25 bid. On Clear Liquid diet and received PRBC. CT abdomen and Pelvis yesterday showed worsening of LLL consolidation Objective Last 24 Hour Vital Signs Date Time Temp Pulse Resp B/P (MAP) Pulse Ox O2 Delivery O2 Flow Rate FiO2 02/28/20 04:00 100 02/28/20 04:00 98.4 94 20 112/71 (85) 98 02/28/20 00:00 94 02/28/20 00:00 98.6 95 21 124/66 (85) 98 02/27/20 21:00 Room Air 02/27/20 20:55 93 131/71 02/27/20 20:00 97.5 95 21 131/71 (91) 98 02/27/20 20:00 94 02/27/20 16:00 98.1 88 20 110/74 (86) 98 02/27/20 16:00 89 02/27/20 12:00 84 02/27/20 12:00 97.7 83 20 127/71 (89) 96 Intake and Output 02/27/20 02/28/20 19:00 07:00 Output Total 950 ml 1000 ml Balance -950 ml -1000 ml Output Urine Total 950 ml 1000 ml # Voids 2 # Bowel Movements 1 Laboratory Tests Test 02/28/20 08:10 White Blood Count 3.3 K/UL (4.8-10.8) L Red Blood Count 3.26 M/UL (4.20-5.40) L Hemoglobin 9.5 G/DL (12.0-16.0) L Hematocrit 27.4 % (37.0-47.0) L Mean Corpuscular Volume 84 FL (80-99) Mean Corpuscular Hemoglobin 29.1 PG (27.0-31.0) Mean Corpuscular Hemoglobin Concent 34.6 G/DL (32.0-36.0) Red Cell Distribution Width 12.9 % (11.6-14.8) Platelet Count 20 K/UL (150-450) L Mean Platelet Volume 9.1 FL (6.5-10.1) Neutrophils (%) (Auto) % (45.0-75.0) Lymphocytes (%) (Auto) % (20.0-45.0) Monocytes (%) (Auto) % (1.0-10.0) Eosinophils (%) (Auto) % (0.0-3.0) Basophils (%) (Auto) % (0.0-2.0) Differential Total Cells Counted 100 Neutrophils % (Manual) 86 % (45-75) H Lymphocytes % (Manual) 12 % (20-45) L Monocytes % (Manual) 2 % (1-10) Eosinophils % (Manual) 0 % (0-3) Basophils % (Manual) 0 % (0-2) Band Neutrophils 0 % (0-8) Platelet Estimate Decreased L Platelet Morphology Normal Hypochromasia 1+ Sodium Level 139 MMOL/L (136-145) Potassium Level 3.6 MMOL/L (3.5-5.1) Chloride Level 107 MMOL/L (98-107) Carbon Dioxide Level 24 MMOL/L (21-32) Anion Gap 8 mmol/L (5-15) Blood Urea Nitrogen 7 mg/dL (7-18) Creatinine 0.6 MG/DL (0.55-1.30) Estimat Glomerular Filtration Rate > 60 mL/min (>60) Glucose Level 123 MG/DL (74-106) H Calcium Level 7.3 MG/DL (8.5-10.1) L Phosphorus Level 3.2 MG/DL (2.5-4.9) Magnesium Level 1.7 MG/DL (1.8-2.4) L Total Bilirubin 0.5 MG/DL (0.2-1.0) Aspartate Amino Transf (AST/SGOT) 20 U/L (15-37) Alanine Aminotransferase (ALT/SGPT) 21 U/L (12-78) Alkaline Phosphatase 76 U/L (46-116) Total Protein 4.0 G/DL (6.4-8.2) L Albumin 1.5 G/DL (3.4-5.0) L Globulin 2.5 g/dL Albumin/Globulin Ratio 0.6 (1.0-2.7) L Objective HEENT: No JVD Cardiovascular: RSR. No GRM Respiratory: clear Abdomen: soft, non-tender. Jessica intact with no drain Extremities: no edema, no tenderness, no cyanosis Peter Quintana MD Feb 28, 2020 09:42
[2020-02-28 12:00] VITALS: BP 124/84
--- NOTE | 2020-02-28 13:13 | NUR ---
NURSE NOTES: Dr Arnett made aware that Mg level today is 1.7.
--- NOTE | 2020-02-28 13:50 | NUR ---
INSURANCE CLINICALS/REVIEW SENT TO [facility] - [phone] Fax Clinicals: [phone] and [facility] - [phone] RADHA Pena Fax Clinicals: [phone]
[2020-02-28 16:00] VITALS: BP 120/61
--- NOTE | 2020-02-28 17:26 | Diagnostic Imaging Report ---
Indication: Shortness of breath Technique: One view of the chest Comparison: 02/25/2020 Findings: Suboptimal inspiration. Large pneumoperitoneum again demonstrated. Hazy basilar parenchymal opacities likely represent combination of crowding of the vascular markings and overlying soft tissue. Findings are unchanged Impression: Unchanged, over 3 days, findings as above.
--- NOTE | 2020-02-28 19:40 | NUR ---
Received report from RYANN Hutchins. Pt in bed, asleep, arousbale . Alert/ oriented x2. No resp distress noted. jewelry racker in place on. Right upper arm double lumen PICC line in place, red lumen unable to flush, purple lumen infusing D5 NS with 40 meq KCL at 100cc/hr tolerating well. F/C in place & patent darning to gravity yellow urine. SCD's in place. Noted bilateral lower extremities swelling. Bilateral upper extremities swelling noted. On air loss mattress for skin maintenance. Bed in low position & locked, side rails up x3. Bed alarm on. Call light with in reach.
--- NOTE | 2020-02-28 19:55 | NUR ---
NURSE HAND-OFF REPORT: Important Events on Shift: Pt received 2 bags of Magnesium. endorsed to insert rectal tube per Dr Brito's order. Patient Status: poor Diet: clear liquids Pending Orders: Pending Results/Labs: Pending MD notification: Latest Vital Signs: Temperature 98.1 , Pulse 84 , B/P 120 /61 , Respiratory Rate 20 , O2 SAT 97 , Room Air, O2 Flow Rate 2.0 . Vital Sign Comment: EKG Rhythm: Sinus Rhythm Rhythm change?: N MD Notified?: N - MD Response: Latest Scherer Fall Score: 20 Fall Risk: Low Risk Safety Measures: Call light Within Reach, Bed Alarm Zone 1, Side Rails Side Rails x3, Bed position Low and Locked. Fall Precautions: Yellow Socks Yellow Gown Door Sign Patient Fall Education Report given to RYANN Pop
[2020-02-28 20:00] VITALS: BP 113/68
--- NOTE | 2020-02-28 20:59 | Surgery Progress Note ---
Surgery Progress Note Subjective Procedure Performed ex lap left colectomy mobilization of splenic flexure omentectomy primary anastomosis Additional Comments ct noted. exam stable not taking in oral intake labs noted plt 20k Objective Last 24 Hour Vital Signs Date Time Temp Pulse Resp B/P (MAP) Pulse Ox O2 Delivery O2 Flow Rate FiO2 02/28/20 16:00 98.1 84 20 120/61 (80) 97 02/28/20 15:17 90 02/28/20 12:00 97.8 93 18 124/84 (97) 98 02/28/20 11:35 94 02/28/20 10:08 99 143/77 02/28/20 09:00 Room Air 02/28/20 08:00 97.0 99 20 143/77 (99) 97 02/28/20 07:30 98 02/28/20 04:00 100 02/28/20 04:00 98.4 94 20 112/71 (85) 98 02/28/20 00:00 94 02/28/20 00:00 98.6 95 21 124/66 (85) 98 02/27/20 21:00 Room Air I&O Intake and Output 02/27/20 02/28/20 19:00 07:00 Output Total 950 ml 1000 ml Balance -950 ml -1000 ml Output Urine Total 950 ml 1000 ml # Voids 2 # Bowel Movements 1 Cardiovascular: RSR Respiratory: clear Abdomen: soft, distended, non-tender, present bowel sounds Extremities: no edema, no tenderness, no cyanosis Laboratory Tests Test 02/28/20 08:10 02/28/20 10:10 02/28/20 16:32 White Blood Count 3.3 K/UL (4.8-10.8) L Red Blood Count 3.26 M/UL (4.20-5.40) L Hemoglobin 9.5 G/DL (12.0-16.0) L Hematocrit 27.4 % (37.0-47.0) L Mean Corpuscular Volume 84 FL (80-99) Mean Corpuscular Hemoglobin 29.1 PG (27.0-31.0) Mean Corpuscular Hemoglobin Concent 34.6 G/DL (32.0-36.0) Red Cell Distribution Width 12.9 % (11.6-14.8) Platelet Count 20 K/UL (150-450) L Mean Platelet Volume 9.1 FL (6.5-10.1) Neutrophils (%) (Auto) % (45.0-75.0) Lymphocytes (%) (Auto) % (20.0-45.0) Monocytes (%) (Auto) % (1.0-10.0) Eosinophils (%) (Auto) % (0.0-3.0) Basophils (%) (Auto) % (0.0-2.0) Differential Total Cells Counted 100 Neutrophils % (Manual) 86 % (45-75) H Lymphocytes % (Manual) 12 % (20-45) L Monocytes % (Manual) 2 % (1-10) Eosinophils % (Manual) 0 % (0-3) Basophils % (Manual) 0 % (0-2) Band Neutrophils 0 % (0-8) Platelet Estimate Decreased L Platelet Morphology Normal Hypochromasia 1+ Sodium Level 139 MMOL/L (136-145) Potassium Level 3.6 MMOL/L (3.5-5.1) Chloride Level 107 MMOL/L (98-107) Carbon Dioxide Level 24 MMOL/L (21-32) Anion Gap 8 mmol/L (5-15) Blood Urea Nitrogen 7 mg/dL (7-18) Creatinine 0.6 MG/DL (0.55-1.30) Estimat Glomerular Filtration Rate > 60 mL/min (>60) Glucose Level 123 MG/DL (74-106) H Calcium Level 7.3 MG/DL (8.5-10.1) L Phosphorus Level 3.2 MG/DL (2.5-4.9) Magnesium Level 1.7 MG/DL (1.8-2.4) L Total Bilirubin 0.5 MG/DL (0.2-1.0) Aspartate Amino Transf (AST/SGOT) 20 U/L (15-37) Alanine Aminotransferase (ALT/SGPT) 21 U/L (12-78) Alkaline Phosphatase 76 U/L (46-116) Total Protein 4.0 G/DL (6.4-8.2) L Albumin 1.5 G/DL (3.4-5.0) L Globulin 2.5 g/dL Albumin/Globulin Ratio 0.6 (1.0-2.7) L Lactic Acid Level 2.70 mmol/L (0.4-2.0) H POC Whole Blood Glucose 133 MG/DL (74-106) H Plan Problems: (1) Lightheaded (2) Hypokalemia (3) Large bowel obstruction Assessment & Plan: 64-year-old female with abdominal distention potential large bowel obstruction. Afebrile, hemodynamic stable, labs noted no leukocytosis no pain no bleeding. No prior abdominal surgeries. Nausea and emesis clear liquid. Decreased appetite. Cannot recall last flatus or BM. CT as below. No direct mass or abnormality identified but there is absolutely identifiable transition at the rectosigmoid area with proximal dilatation. A colonoscopy is warranted but though would be with definitive risk of potential perforation. GI consult pending. Replace electrolytes. N.p.o. IV fluids will await scope for findings. Conceivably may require surgical intervention. Thank you for let me participate in patient's care will follow with recommendations GI consider for scope 02/17 will be available for surgery in case of emergency high risk for perforation or complication and understands. but strongly recommend scope prior to surgery for etiology purposes. s/p ex lap. see op report recovering okay to downgrade to tele npo okay for ice chips iv fluids abx tomas to stay in until ambulatory heparin petechia plt down hold heparin scds cont abx trend labs trial liquid diet ?air leak but afebrile, hd stable, no wbc, shift improved. needs K replacement plt trending down petechia CT pending electrolytes improved CT with mets to omentum likely was obstructed for significant period of time prior to surgery and tumor with mets. liver okay but post op she is declining. unfortunately prognosis is guarded. asked her if she wanted me to call anyone and declined ct noted. fluid and gas in colon and rectum distal to anastomosis. possible occult leak? but no fevers, no wbc, and exam without tenderness. rectal tube ordered tpn There are several circumscribed low-density nonenhancing cysts noted in the l iver. The spleen is homogeneous. Gallbladder is without sludge or stone and there is no wall thickening. The pancreas is unremarkable. Adrenals are normal in morphology. The kidneys are normal in size, shape and axis. Small bowel loops are nondistended. The dominant abnormality is severe colonic distention containing air-fluid levels and stool debris. Dilated colon extends down to the rectosigmoid junction where there is an apparent transition. The rectal vault is nondistended with only a small amount of stool. No definite discernible mass is detected there is There is no free fluid or free air. No pathologic adenopathy demonstrated. Bladder is empty. There is no suspicious superficial soft tissue or osseous abnormality. IMPRESSION: SEVERE COLONIC DISTENTION WITH AIR-FLUID LEVELS AND STOOL DEBRIS. THERE IS APPARENT TRANSITION AT THE RECTOSIGMOID JUNCTION WITH A RELATIVELY EMPTY RECTAL VAULT WITH ONLY SMALL AMOUNT OF STOOL. NO DEFINITE DISCERNIBLE MASS AT THE TRANSITION POINT. RECOMMEND GI CONSULTATION AND CONSIDER COLONOSCOPY. (4) Colon cancer Swapnil Brito Feb 28, 2020 20:59
[2020-02-28] MEDS ORDERED: Fat Emulsion Iv 20% 250 ML IV SCH (21:00)
[2020-02-28] MEDS: Dyna-Hex 2% Top Sol 2oz TOPIC SCH (21:17)
--- NOTE | 2020-02-28 21:30 | NUR ---
NURSE NOTES: PER- PHARMACIST CONCHITA to START TPN & LIPIDS ON 02/28
[2020-02-29] VITALS: BP 120/70
[2020-02-29] MEDS: D5NS w/KCl 40mEq 1000ml 1,000 ML IV SCH ×3 (01:33→20:22)
[2020-02-29 04:00] VITALS: BP 110/84
--- NOTE | 2020-02-29 06:29 | Hematology/Onc Progress Note ---
Assessment/Plan Assessment/Plan Assessment and Recs # Stage IV adenocarcinoma of the colon - biopsy report shows pT3, N2b, M1, lesion with omental metastasis, tumor markers pending as well asct a/p --> operative report reviewed, per surg, now POD 10 --> currently functional status very poor, at this time hold off further rx in re to chemo --> if functional status improves consider single agent PO drug xeloda and if improves further FOLFOX (combo) --> tumor markers ordered --> Ct a/p reviewed, no sig mets on scan, but does have omental mets --> appreciate surgical care # Thrombocytopenia - potential causes multifactorial, evaluate liver and viral etiologies to begin, severe and acute, did get heparin --> lactic acid 2.6, r/o sepsis --> Hep panel and HIV neg ==> hit ab negative --> ct a/p reviewed --> Peripheral smear ordered to evaluate for blasts /schistocytes --> abx and other meds have been reviewed --> transfuse to keep plt >20k --> meds reviewed --> plt 212-->30-->18->8 --> DIC panel has been ordered # Large bowel obstruction --> due to above cancer # Hypokalemia --> replete with k # PALMER --> hypovolemic, now improved # Dvt ppx scds The timing of this note does not necessarily reflect the time of the patient was seen. Greatly appreciate consultation. Subjective Constitutional: Denies: no symptoms, chills, fever, malaise, weakness, other HEENT: Denies: no symptoms, eye pain, blurred vision, tearing, double vision, ear pain, ear discharge, nose pain, nose congestion, throat pain, throat swelling, mouth pain, mouth swelling, other Cardiovascular: Denies: no symptoms, chest pain, edema, irregular heart rate, lightheadedness, palpitations, syncope, other Respiratory: Denies: no symptoms, cough, shortness of breath, SOB with excertion, SOB at rest, sputum, wheezing, other Gastrointestinal/Abdominal: Denies: no symptoms, abdomen distended, abdominal pain, black stools, tarry stools, blood in stool, constipated, diarrhea, difficulty swallowing, nausea, poor appetite, poor fluid intake, rectal bleeding, vomiting, other Genitourinary: Denies: no symptoms, burning, discharge, frequency, flank pain, hematuria, incontinence, pain, urgency, other Hematologic/Lymphatic: Denies: no symptoms, anemia, easy bleeding, easy bruising, adenopathy, other Allergies: Coded Allergies: No Known Allergies (Unverified , 02/15/20) Subjective 02/28 asleep no bleeding, pending tumor markers, with decreased po intake Objective Objective Current Medications Medications (Trade) Dose Ordered Sig/Fozia Route PRN Reason Start Time Stop Time Status Last Admin Dose Admin Acetaminophen (Tylenol) 650 mg Q6H PRN ORAL Mild Pain (Pain Scale 1-3) 02/18/20 17:15 03/19/20 17:14 Amino Acids/ Electrolytes/ Dextrose 2,000 ml @ 83 mls/hr Q24H IV 02/28/20 21:00 05/28/20 20:59 UNV Barium Sulfate (Readi-Cat 2) 450 ml NOW PRN ORAL Radiology Procedure 02/27/20 08:15 02/29/20 08:14 Chlorhexidine Gluconate (Gail-Hex 2%) 1 applic DAILY@2000 TOPIC 02/25/20 20:00 05/25/20 19:59 02/28/20 21:17 Dextrose 1,000 ml @ 0 mls/hr Q24H PRN IV PN interrupted or unavailable 02/28/20 14:30 03/29/20 14:29 UNV Dextrose (Dextrose 50%) 25 ml Q30M PRN IV Hypoglycemia 02/28/20 14:30 05/28/20 14:29 UNV Dextrose (Dextrose 50%) 50 ml Q30M PRN IV Hypoglycemia 02/28/20 14:30 05/28/20 14:29 UNV Dextrose/ Electrolytes 1,000 ml @ 100 mls/hr Q10H IV 02/24/20 11:00 03/25/20 10:59 02/29/20 01:33 Diphenhydramine HCl (Benadryl) 12.5 mg Q6H PRN IVP Itching/Pruritis 02/18/20 17:15 03/19/20 17:14 Fat Emulsion Intravenous 250 ml @ 10.4 mls/hr Q24H IV 02/28/20 21:00 03/29/20 20:59 UNV Insulin Aspart (NovoLOG) Q6HR SUBQ 02/28/20 18:00 05/28/20 17:59 UNV Meclizine HCl (Antivert) 25 mg TID PRN ORAL for dizziness 02/20/20 20:30 03/21/20 20:29 Metoprolol Tartrate (Lopressor) 25 mg Q12HR ORAL 02/24/20 21:00 05/24/20 20:59 02/28/20 21:16 Ondansetron HCl (Zofran) 4 mg Q6H PRN IVP Nausea & Vomiting 02/18/20 17:15 03/19/20 17:14 Phytonadione (Vitamin K) 10 mg ONCE A WEEK SUBQ 02/28/20 14:30 05/28/20 14:29 UNV Promethazine HCl 50 mg/Sodium Chloride 111 ml @ 222 mls/hr Q6H PRN IVPB for dizziness 02/20/20 20:45 03/21/20 20:44 02/20/20 21:42 Last 24 Hour Vital Signs Date Time Temp Pulse Resp B/P (MAP) Pulse Ox O2 Delivery O2 Flow Rate FiO2 02/29/20 04:00 97.5 84 16 110/84 (93) 96 02/29/20 04:00 91 02/29/20 00:00 96 02/29/20 00:00 97.7 92 18 120/70 (87) 96 02/28/20 21:16 89 113/68 02/28/20 21:00 Room Air 02/28/20 20:00 89 02/28/20 20:00 98.1 89 18 113/68 (83) 97 02/28/20 16:00 98.1 84 20 120/61 (80) 97 02/28/20 15:17 90 02/28/20 12:00 97.8 93 18 124/84 (97) 98 02/28/20 11:35 94 02/28/20 10:08 99 143/77 02/28/20 09:00 Room Air 02/28/20 08:00 97.0 99 20 143/77 (99) 97 02/28/20 07:30 98 02/28/20 04:00 100 02/28/20 04:00 98.4 94 20 112/71 (85) 98 02/28/20 00:00 94 02/28/20 00:00 98.6 95 21 124/66 (85) 98 02/27/20 21:00 Room Air 02/27/20 20:55 93 131/71 02/27/20 20:00 97.5 95 21 131/71 (91) 98 02/27/20 20:00 94 02/27/20 16:00 98.1 88 20 110/74 (86) 98 02/27/20 16:00 89 02/27/20 12:00 84 02/27/20 12:00 97.7 83 20 127/71 (89) 96 02/27/20 09:37 94 115/69 02/27/20 09:00 Room Air 02/27/20 08:00 97.7 94 20 115/69 (84) 100 02/27/20 08:00 92 Intake and Output 02/28/20 02/29/20 19:00 07:00 Output Total 1000 ml Balance -1000 ml Output Urine Total 1000 ml Labs Test 02/26/20 11:20 02/27/20 05:20 02/27/20 07:40 02/28/20 08:10 Lactic Acid Level 3.10 mmol/L (0.66-2.22) 2.40 mmol/L (0.4-2.0) 2.60 mmol/L (0.66-2.22) White Blood Count 3.4 K/UL (4.8-10.8) 3.3 K/UL (4.8-10.8) Red Blood Count 2.94 M/UL (4.20-5.40) 3.26 M/UL (4.20-5.40) Hemoglobin 8.5 G/DL (12.0-16.0) 9.5 G/DL (12.0-16.0) Hematocrit 24.6 % (37.0-47.0) 27.4 % (37.0-47.0) Mean Corpuscular Volume 84 FL (80-99) 84 FL (80-99) Mean Corpuscular Hemoglobin 29.0 PG (27.0-31.0) 29.1 PG (27.0-31.0) Mean Corpuscular Hemoglobin Concent 34.7 G/DL (32.0-36.0) 34.6 G/DL (32.0-36.0) Red Cell Distribution Width 13.2 % (11.6-14.8) 12.9 % (11.6-14.8) Platelet Count 18 K/UL (150-450) 20 K/UL (150-450) Mean Platelet Volume 14.7 FL (6.5-10.1) 9.1 FL (6.5-10.1) Neutrophils (%) (Auto) % (45.0-75.0) % (45.0-75.0) Lymphocytes (%) (Auto) % (20.0-45.0) % (20.0-45.0) Monocytes (%) (Auto) % (1.0-10.0) % (1.0-10.0) Eosinophils (%) (Auto) % (0.0-3.0) % (0.0-3.0) Basophils (%) (Auto) % (0.0-2.0) % (0.0-2.0) Differential Total Cells Counted 100 100 Neutrophils % (Manual) 76 % (45-75) 86 % (45-75) Lymphocytes % (Manual) 21 % (20-45) 12 % (20-45) Monocytes % (Manual) 3 % (1-10) 2 % (1-10) Eosinophils % (Manual) 0 % (0-3) 0 % (0-3) Basophils % (Manual) 0 % (0-2) 0 % (0-2) Band Neutrophils 0 % (0-8) 0 % (0-8) Platelet Estimate Decreased Decreased Platelet Morphology Normal Normal Hypochromasia 2+ 1+ Erythrocyte Sedimentation Rate 41 MM/HR (0-30) Prothrombin Time 12.5 SEC (9.30-11.50) Prothromb Time International Ratio 1.1 (0.9-1.1) Activated Partial Thromboplast Time 28 SEC (23-33) Sodium Level 137 MMOL/L (136-145) 139 MMOL/L (136-145) Potassium Level 3.2 MMOL/L (3.5-5.1) 3.6 MMOL/L (3.5-5.1) Chloride Level 106 MMOL/L (98-107) 107 MMOL/L (98-107) Carbon Dioxide Level 25 MMOL/L (21-32) 24 MMOL/L (21-32) Anion Gap 7 mmol/L (5-15) 8 mmol/L (5-15) Blood Urea Nitrogen 8 mg/dL (7-18) 7 mg/dL (7-18) Creatinine 0.6 MG/DL (0.55-1.30) 0.6 MG/DL (0.55-1.30) Estimat Glomerular Filtration Rate > 60 mL/min (>60) > 60 mL/min (>60) Glucose Level 103 MG/DL (74-106) 123 MG/DL (74-106) Calcium Level 6.8 MG/DL (8.5-10.1) 7.3 MG/DL (8.5-10.1) Phosphorus Level 2.8 MG/DL (2.5-4.9) 3.2 MG/DL (2.5-4.9) Magnesium Level 2.1 MG/DL (1.8-2.4) 1.7 MG/DL (1.8-2.4) Total Bilirubin 0.4 MG/DL (0.2-1.0) 0.5 MG/DL (0.2-1.0) Aspartate Amino Transf (AST/SGOT) 25 U/L (15-37) 20 U/L (15-37) Alanine Aminotransferase (ALT/SGPT) 22 U/L (12-78) 21 U/L (12-78) Alkaline Phosphatase 68 U/L (46-116) 76 U/L (46-116) C-Reactive Protein, Quantitative 10.6 mg/dL (0.00-0.90) Total Protein 3.6 G/DL (6.4-8.2) 4.0 G/DL (6.4-8.2) Albumin 1.4 G/DL (3.4-5.0) 1.5 G/DL (3.4-5.0) Globulin 2.2 g/dL 2.5 g/dL Albumin/Globulin Ratio 0.6 (1.0-2.7) 0.6 (1.0-2.7) Amylase Level 104 U/L (25-115) Lipase 614 U/L (73-393) HIV (1&2) Antibody Rapid Negative (NEGATIVE) Hepatitis A IgM Antibody Negative (Negative) Hepatitis B Surface Antigen Negative (Negative) Hepatitis B Core IgM Antibody Negative (Negative) Hepatitis C Antibody <0.1 s/co ratio Test 02/28/20 10:10 02/28/20 16:32 02/28/20 23:35 Lactic Acid Level 2.70 mmol/L (0.4-2.0) POC Whole Blood Glucose 133 MG/DL (74-106) 124 MG/DL (74-106) Height (Feet): 5 Height (Inches): 4.00 Weight (Pounds): 113 Objective General: NAD HEENT: nc, at Neck: supple Chest: clear breath sounds bilaterally Cardiovascular: RRR, no s3, s4 Abdomen: soft, nontender, nd, ++surgical site noted, c/d/i, healing ++ Extremities: no cce, normal range of motion Neuro: alert and oriented Gustavo Mon MD Feb 29, 2020 06:29
--- NOTE | 2020-02-29 07:20 | NUR ---
NURSE HAND-OFF REPORT: Important Events on Shift:per phatmacy TPN & LIPIDS TO START OM 02/28 Patient Status: STABLE Diet:CLAER LIQUID Pending Orders: [] Pending Results/Labs:[] Pending MD notification:[] Latest Vital Signs: Temperature 97.5 , Pulse 84 , B/P 110 /84 , Respiratory Rate 16 , O2 SAT 96 , Room Air, O2 Flow Rate 2.0 . Vital Sign Comment: [] EKG Rhythm: Sinus Rhythm Rhythm change?: N MD Notified?: N - MD Response: Latest Scherer Fall Score: 20 Fall Risk: Low Risk Safety Measures: Call light Within Reach, Bed Alarm Zone 1, Side Rails Side Rails x3, Bed position Low and Locked. Fall Precautions: Yellow Socks Yellow Gown Door Sign Patient Fall Education Report given to RYANN baker.
[2020-02-29 07:29] LABS: HEMATOCRIT 22.1 % (37.0-47.0); HEMOGLOBIN 7.7 G/DL (12.0-16.0); MEAN CORPUSCULAR VOLUME 83 FL (80-99); RED BLOOD COUNT 2.65 M/UL (4.20-5.40); RED CELL DISTRIBUTION WIDTH 12.7 % (11.6-14.8)
--- NOTE | 2020-02-29 07:30 | NUR ---
NURSE NOTES: Received pt from RYANN Pop, pt is awake and confused, pt is in RA, pt has PICC LADARIUS is running well. pt is on continues heart monitoring. Dr Mon is aware about critical labs WBC 1.7 PLT 9 and K 3.2 HB 7.7, waiting to call back. pt has Leiva cath in place is working well. pt has rectal tube in place is working.All needs attended, bed is locked and is in the lowest position, call light within easy reach. will continue to monitor. Addendum: 02/29/20 at 0801 by Rut Pickett RN pt look pale and very week, Dr Mon is aware.
[2020-02-29 07:36] LABS: ALANINE AMINOTRANSFERASE 17 U/L (12-78); ALBUMIN 1.3 G/DL (3.4-5.0); ALBUMIN/GLOBULIN RATIO 0.5 (1.0-2.7); ALKALINE PHOSPHATASE 64 U/L (46-116); ANION GAP 11 mmol/L (5-15); ASPARTATE AMINO TRANSFERASE 21 U/L (15-37); BILIRUBIN,TOTAL 0.3 MG/DL (0.2-1.0); CARBON DIOXIDE 21 MMOL/L (21-32); CHLORIDE 108 MMOL/L (98-107); CREATININE 0.5 MG/DL (0.55-1.30); POTASSIUM 3.2 MMOL/L (3.5-5.1); SODIUM 140 MMOL/L (136-145)
[2020-02-29 07:38] LABS: PLATELET COUNT 9 K/UL (150-450); WHITE BLOOD COUNT 1.7 K/UL (4.8-10.8)
[2020-02-29 07:43] LABS: BLOOD UREA NITROGEN 6 mg/dL (7-18)
[2020-02-29 08:00] VITALS: BP 109/66
--- NOTE | 2020-02-29 08:06 | NUR ---
RD ASSESSMENT & RECOMMENDATIONS SEE CARE ACTIVITY FOR COMPLETE ASSESSMENT DAILY ESTIMATED NEEDS: Needs based on GI, surgery, cancer 50.4kg 25-35 kcals/kg 3492-3254 total kcals 1-2 g protein/kg 50-100 g total protein 25-35ml/kcal mL/kg 5667-5265 total fluid mLs NUTRITION DIAGNOSIS: Altered GI fxn r/t bowel obstruction as evidenced by CT scan, last bm unknown, adm w/ distended abdomen, N/V w/ recent poor po intake, s/p ex lap, left colectomy and partial omentectomy, on CLD w/ poor intake, TPN now pending. CURRENT DIET:CLD. PARENTERAL NUTRITION RECOMMENDATIONS: D/AA Rate: 60 IL Rate: 9 Total Rate: 69 Volume: 1656 % Dextrose: 16 % AA: 5.4 Energy (kcals/kg): 1526 Protein (g/kg protein): 78 Nonprotein KCALS: 1264 GIR (mg CHO/kg/min): 3.2 % Fat KCALS: 28 NPC: N Ratio: 97:1 TPN Comment: TPN currently based on initial bed scale wt of 50.4kg, now currently at 74.9kg w/ P200 mattress, w/ adj wt of 62.9kg. - D16%, AA 5.4% @60ml/hr + IL 20% @9ml.hr-> total of 69ml/hr, all 3:1. - NPO/ poor intake from adm, start TPN at low rate 19ml/hr for 6 hrs. Advance as tolerated 10ml/hr q4-6 hrs to goal. - GIR<5 - IL <30% ADDITIONAL RECOMMENDATIONS: 1) Monitor NPO status-> now starting TPN Rec recalibrated bed scale wts 2) Monitor lytes, replete as needed-> low K, phos, mag 3) Continue added D5 IVF while NPO to prevent hypoglycemia 4) Calibrated bedscale wt 6) W/ TPN: monitor BG, Lytes, and LFT's.
--- NOTE | 2020-02-29 08:13 | NUR ---
NURSE NOTES: Dr Mon called back and ordered 40meq KCL po once and NEUPOGEN 300 ade sq once, noted and carried out. will continue to monitor.
--- NOTE | 2020-02-29 08:49 | Nephrology Progress Note ---
Assessment/Plan Plan #Severe hypokalemia #Abdominal distention - bowel obstruction due to colonic mass- s/p resection #lactic acidosis #htn #Dehydration #HLD - s/p resection - monitor lactic acidic level - replete K, elvi mag - calcitriol 1mcg x1 - check vitamin D level - IVF- switch to D5NS + 40 kcl - replete K, mag and phos - NPO - monitor lytes - avoid nephrotoxins - gen surg eval Subjective ROS Limited/Unobtainable: No Constitutional: Reports: weakness HEENT: Denies: no symptoms, eye pain, blurred vision, tearing, double vision, ear pain, ear discharge, nose pain, nose congestion, throat pain, throat swelling, mouth pain, mouth swelling, other Genitourinary: Denies: no symptoms, burning, discharge, frequency, flank pain, hematuria, incontinence, pain, urgency, other Neurologic/Psychiatric: Denies: no symptoms, anxiety, depressed, emotional problems, headache, numbness, paresthesia, pre-existing deficit, seizure, tingling, tremors, weakness, other Subjective s/p resection CT with mets to omentum plt 9 tranfuse one unit started on TPN NPO Objective Objective Last 24 Hour Vital Signs Date Time Temp Pulse Resp B/P (MAP) Pulse Ox O2 Delivery O2 Flow Rate FiO2 02/29/20 08:00 96.7 91 20 109/66 (80) 98 02/29/20 04:00 97.5 84 16 110/84 (93) 96 02/29/20 04:00 91 02/29/20 00:00 96 02/29/20 00:00 97.7 92 18 120/70 (87) 96 02/28/20 21:16 89 113/68 02/28/20 21:00 Room Air 02/28/20 20:00 89 02/28/20 20:00 98.1 89 18 113/68 (83) 97 02/28/20 16:00 98.1 84 20 120/61 (80) 97 02/28/20 15:17 90 02/28/20 12:00 97.8 93 18 124/84 (97) 98 02/28/20 11:35 94 02/28/20 10:08 99 143/77 02/28/20 09:00 Room Air Intake and Output 02/28/20 02/29/20 19:00 07:00 Intake Total 50 ml Output Total 1000 ml 1200 ml Balance -1000 ml -1150 ml Intake Oral 50 ml Output Urine Total 1000 ml 1200 ml Laboratory Tests 02/28/20 10:10: Lactic Acid Level 2.70H 02/28/20 16:32: POC Whole Blood Glucose 133H 02/28/20 23:35: POC Whole Blood Glucose 124H 02/29/20 05:57: White Blood Count 1.7*L, Red Blood Count 2.65L, Hemoglobin 7.7L, Hematocrit 22.1L, Mean Corpuscular Volume 83, Mean Corpuscular Hemoglobin 28.9, Mean Corpuscular Hemoglobin Concent 34.7, Red Cell Distribution Width 12.7, Platelet Count 9#*L, Mean Platelet Volume 13.4H, Neutrophils (%) (Auto) , Lymphocytes (%) (Auto) , Monocytes (%) (Auto) , Eosinophils (%) (Auto) , Basophils (%) (Auto) , Neutrophils % (Manual) [Pending], Lymphocytes % (Manual) [Pending], Platelet Estimate [Pending], Platelet Morphology [Pending], Sodium Level 140, Potassium Level 3.2L, Chloride Level 108H, Carbon Dioxide Level 21, Anion Gap 11, Blood Urea Nitrogen 6L, Creatinine 0.5L, Estimat Glomerular Filtration Rate > 60, Glucose Level 136H, Calcium Level 7.0L, Total Bilirubin 0.3, Aspartate Amino Transf (AST/SGOT) 21, Alanine Aminotransferase (ALT/SGPT) 17, Alkaline Phosphatase 64, Total Protein 3.8L, Albumin 1.3L, Globulin 2.5, Albumin/Globulin Ratio 0.5L 02/29/20 06:51: POC Whole Blood Glucose 143H Height (Feet): 5 Height (Inches): 4.00 Weight (Pounds): 113 Yakelin Arnett M.D. Feb 29, 2020 08:49
--- NOTE | 2020-02-29 09:05 | NUR ---
PT NOTE Attempted to see patient for PT treatment. Patient lethargic, opens eyes briefly. Patient unable to participate with PT at this time. Afsoon RN aware, will follow.
--- NOTE | 2020-02-29 09:06 | NUR ---
NURSE NOTES: pt refused metoprolol and didn't swallow, med wasted in med room.
--- NOTE | 2020-02-29 10:11 | General Progress Note ---
Subjective ROS Limited/Unobtainable: No Allergies: Coded Allergies: No Known Allergies (Unverified , 02/15/20) Objective Last 24 Hour Vital Signs Date Time Temp Pulse Resp B/P (MAP) Pulse Ox O2 Delivery O2 Flow Rate FiO2 02/29/20 09:00 91 109/66 02/29/20 08:00 96.7 91 20 109/66 (80) 98 02/29/20 04:00 97.5 84 16 110/84 (93) 96 02/29/20 04:00 91 02/29/20 00:00 96 02/29/20 00:00 97.7 92 18 120/70 (87) 96 02/28/20 21:16 89 113/68 02/28/20 21:00 Room Air 02/28/20 20:00 89 02/28/20 20:00 98.1 89 18 113/68 (83) 97 02/28/20 16:00 98.1 84 20 120/61 (80) 97 02/28/20 15:17 90 02/28/20 12:00 97.8 93 18 124/84 (97) 98 02/28/20 11:35 94 Intake and Output 02/28/20 02/29/20 18:59 06:59 Output Total 1000 ml 1000 ml Balance -1000 ml -1000 ml Output Urine Total 1000 ml 1000 ml # Bowel Movements 1 Laboratory Tests 02/28/20 16:32: POC Whole Blood Glucose 133H 02/28/20 23:35: POC Whole Blood Glucose 124H 02/29/20 05:57: White Blood Count 1.7*L, Red Blood Count 2.65L, Hemoglobin 7.7L, Hematocrit 22.1L, Mean Corpuscular Volume 83, Mean Corpuscular Hemoglobin 28.9, Mean Corpuscular Hemoglobin Concent 34.7, Red Cell Distribution Width 12.7, Platelet Count 9#*L, Mean Platelet Volume 13.4H, Neutrophils (%) (Auto) , Lymphocytes (%) (Auto) , Monocytes (%) (Auto) , Eosinophils (%) (Auto) , Basophils (%) (Auto) , Differential Total Cells Counted 100, Neutrophils % (Manual) 50, Lymphocytes % (Manual) 46H, Monocytes % (Manual) 4, Eosinophils % (Manual) 0, Basophils % (Manual) 0, Band Neutrophils 0, Platelet Estimate DecreasedL, Platelet Morphology Normal, Hypochromasia 1+, Sodium Level 140, Potassium Level 3.2L, Chloride Level 108H, Carbon Dioxide Level 21, Anion Gap 11, Blood Urea Nitrogen 6L, Creatinine 0.5L, Estimat Glomerular Filtration Rate > 60, Glucose Level 136H , Calcium Level 7.0L, Total Bilirubin 0.3, Aspartate Amino Transf (AST/SGOT) 21, Alanine Aminotransferase (ALT/SGPT) 17, Alkaline Phosphatase 64, Total Protein 3.8L, Albumin 1.3L, Globulin 2.5, Albumin/Globulin Ratio 0.5L 02/29/20 06:51: POC Whole Blood Glucose 143H Height (Feet): 5 Height (Inches): 4.00 Weight (Pounds): 113 General Appearance: no apparent distress EENT: normal ENT inspection Neck: supple Cardiovascular: normal rate Respiratory/Chest: decreased breath sounds Abdomen: other - post surgical Extremities: non-tender Assessment/Plan Problem List: (1) Large bowel obstruction ICD Codes: K56.609 - Unspecified intestinal obstruction, unspecified as to partial versus complete obstruction SNOMED: 448339949 (2) Hypokalemia ICD Codes: E87.6 - Hypokalemia SNOMED: 08358627 (3) Lightheaded ICD Codes: R42 - Dizziness and giddiness SNOMED: 547535921 Status: stable Assessment/Plan: colon cancer with bowel obstruction s/p resection pending TPN on clears fu surg recs Graeme Hirsch MD Feb 29, 2020 10:11
--- NOTE | 2020-02-29 10:16 | Cardiac Electrophysiology PN ---
Assessment/Plan Assessment/Plan 1. Nonsustained VT 5 beats and Palpitations. No recurrence after hypokalemia corrected. Echo EF 55%. On Metoprolol 25 po bid 2. Sinus tach and anemia better on Metoprolol 25 po bid and after PRBC 3. Bowel obstruction. S/P ex lap, left colectomy, mobilization of splenic flexure by Dr Brito, CT abdomen Free fluid seen in the abdomen and pelvis with multiple fluid- filled loops of small and large bowel which may be associated with ileus or enteritis without focal transition point. Lung bases appear worse from the prior exam. Increased free fluid within the abdomen. FU Gi and surgery. On Clear liquid diet 4. Hypokalemia replaced with iv K and Mg. 5. PVCs and dizziness 6. Anemia with Hb 6.9. s/p PRBC 02/26/20 again. S/P CT abdomen and pelvis DW RN Subjective Subjective No more VT since the 5 beats of VT 02/21/20. In NSR on Lopressor 25 bid. On Clear Liquid diet and received PRBC. CT abdomen and Pelvis showed worsening of LLL consolidation. Not eating much Objective Last 24 Hour Vital Signs Date Time Temp Pulse Resp B/P (MAP) Pulse Ox O2 Delivery O2 Flow Rate FiO2 02/29/20 09:00 91 109/66 02/29/20 08:00 96.7 91 20 109/66 (80) 98 02/29/20 04:00 97.5 84 16 110/84 (93) 96 02/29/20 04:00 91 02/29/20 00:00 96 02/29/20 00:00 97.7 92 18 120/70 (87) 96 02/28/20 21:16 89 113/68 02/28/20 21:00 Room Air 02/28/20 20:00 89 02/28/20 20:00 98.1 89 18 113/68 (83) 97 02/28/20 16:00 98.1 84 20 120/61 (80) 97 02/28/20 15:17 90 02/28/20 12:00 97.8 93 18 124/84 (97) 98 02/28/20 11:35 94 Intake and Output 02/28/20 02/29/20 19:00 07:00 Intake Total 50 ml Output Total 1000 ml 1200 ml Balance -1000 ml -1150 ml Intake Oral 50 ml Output Urine Total 1000 ml 1200 ml Laboratory Tests Test 02/28/20 16:32 02/28/20 23:35 02/29/20 05:57 02/29/20 06:51 POC Whole Blood Glucose 133 MG/DL (74-106) H 124 MG/DL (74-106) H 143 MG/DL (74-106) H White Blood Count 1.7 K/UL (4.8-10.8) *L Red Blood Count 2.65 M/UL (4.20-5.40) L Hemoglobin 7.7 G/DL (12.0-16.0) L Hematocrit 22.1 % (37.0-47.0) L Mean Corpuscular Volume 83 FL (80-99) Mean Corpuscular Hemoglobin 28.9 PG (27.0-31.0) Mean Corpuscular Hemoglobin Concent 34.7 G/DL (32.0-36.0) Red Cell Distribution Width 12.7 % (11.6-14.8) Platelet Count 9 K/UL (150-450) #*L Mean Platelet Volume 13.4 FL (6.5-10.1) H Neutrophils (%) (Auto) % (45.0-75.0) Lymphocytes (%) (Auto) % (20.0-45.0) Monocytes (%) (Auto) % (1.0-10.0) Eosinophils (%) (Auto) % (0.0-3.0) Basophils (%) (Auto) % (0.0-2.0) Differential Total Cells Counted 100 Neutrophils % (Manual) 50 % (45-75) Lymphocytes % (Manual) 46 % (20-45) H Monocytes % (Manual) 4 % (1-10) Eosinophils % (Manual) 0 % (0-3) Basophils % (Manual) 0 % (0-2) Band Neutrophils 0 % (0-8) Platelet Estimate Decreased L Platelet Morphology Normal Hypochromasia 1+ Sodium Level 140 MMOL/L (136-145) Potassium Level 3.2 MMOL/L (3.5-5.1) L Chloride Level 108 MMOL/L (98-107) H Carbon Dioxide Level 21 MMOL/L (21-32) Anion Gap 11 mmol/L (5-15) Blood Urea Nitrogen 6 mg/dL (7-18) L Creatinine 0.5 MG/DL (0.55-1.30) L Estimat Glomerular Filtration Rate > 60 mL/min (>60) Glucose Level 136 MG/DL (74-106) H Calcium Level 7.0 MG/DL (8.5-10.1) L Total Bilirubin 0.3 MG/DL (0.2-1.0) Aspartate Amino Transf (AST/SGOT) 21 U/L (15-37) Alanine Aminotransferase (ALT/SGPT) 17 U/L (12-78) Alkaline Phosphatase 64 U/L (46-116) Total Protein 3.8 G/DL (6.4-8.2) L Albumin 1.3 G/DL (3.4-5.0) L Globulin 2.5 g/dL Albumin/Globulin Ratio 0.5 (1.0-2.7) L Objective HEENT: No JVD Cardiovascular: RSR. No GRM Respiratory: clear Abdomen: soft, non-tender. Jessica intact with no drain Extremities: no edema, no tenderness, no cyanosis Peter Quintana MD Feb 29, 2020 10:16
[2020-02-29 12:00] VITALS: BP 110/73
--- NOTE | 2020-02-29 12:14 | Surgery Progress Note ---
Surgery Progress Note Subjective Procedure Performed ex lap left colectomy mobilization of splenic flexure omentectomy primary anastomosis Additional Comments worsening labs noted and declining plt 9 wbc 1.7 pending tpn awake but somnolent Objective Last 24 Hour Vital Signs Date Time Temp Pulse Resp B/P (MAP) Pulse Ox O2 Delivery O2 Flow Rate FiO2 02/29/20 09:00 91 109/66 02/29/20 08:00 96.7 91 20 109/66 (80) 98 02/29/20 07:46 90 02/29/20 04:00 97.5 84 16 110/84 (93) 96 02/29/20 04:00 91 02/29/20 00:00 96 02/29/20 00:00 97.7 92 18 120/70 (87) 96 02/28/20 21:16 89 113/68 02/28/20 21:00 Room Air 02/28/20 20:00 89 02/28/20 20:00 98.1 89 18 113/68 (83) 97 02/28/20 16:00 98.1 84 20 120/61 (80) 97 02/28/20 15:17 90 I&O Intake and Output 02/28/20 02/29/20 19:00 07:00 Intake Total 50 ml Output Total 1000 ml 1200 ml Balance -1000 ml -1150 ml Intake Oral 50 ml Output Urine Total 1000 ml 1200 ml Cardiovascular: RSR Respiratory: decreased breath sounds Abdomen: soft, distended, non-tender, decreased bowel sounds Extremities: edema, no tenderness, no cyanosis Laboratory Tests Test 02/28/20 16:32 02/28/20 23:35 02/29/20 05:57 02/29/20 06:51 POC Whole Blood Glucose 133 MG/DL (74-106) H 124 MG/DL (74-106) H 143 MG/DL (74-106) H White Blood Count 1.7 K/UL (4.8-10.8) *L Red Blood Count 2.65 M/UL (4.20-5.40) L Hemoglobin 7.7 G/DL (12.0-16.0) L Hematocrit 22.1 % (37.0-47.0) L Mean Corpuscular Volume 83 FL (80-99) Mean Corpuscular Hemoglobin 28.9 PG (27.0-31.0) Mean Corpuscular Hemoglobin Concent 34.7 G/DL (32.0-36.0) Red Cell Distribution Width 12.7 % (11.6-14.8) Platelet Count 9 K/UL (150-450) #*L Mean Platelet Volume 13.4 FL (6.5-10.1) H Neutrophils (%) (Auto) % (45.0-75.0) Lymphocytes (%) (Auto) % (20.0-45.0) Monocytes (%) (Auto) % (1.0-10.0) Eosinophils (%) (Auto) % (0.0-3.0) Basophils (%) (Auto) % (0.0-2.0) Differential Total Cells Counted 100 Neutrophils % (Manual) 50 % (45-75) Lymphocytes % (Manual) 46 % (20-45) H Monocytes % (Manual) 4 % (1-10) Eosinophils % (Manual) 0 % (0-3) Basophils % (Manual) 0 % (0-2) Band Neutrophils 0 % (0-8) Platelet Estimate Decreased L Platelet Morphology Normal Hypochromasia 1+ Sodium Level 140 MMOL/L (136-145) Potassium Level 3.2 MMOL/L (3.5-5.1) L Chloride Level 108 MMOL/L (98-107) H Carbon Dioxide Level 21 MMOL/L (21-32) Anion Gap 11 mmol/L (5-15) Blood Urea Nitrogen 6 mg/dL (7-18) L Creatinine 0.5 MG/DL (0.55-1.30) L Estimat Glomerular Filtration Rate > 60 mL/min (>60) Glucose Level 136 MG/DL (74-106) H Calcium Level 7.0 MG/DL (8.5-10.1) L Total Bilirubin 0.3 MG/DL (0.2-1.0) Aspartate Amino Transf (AST/SGOT) 21 U/L (15-37) Alanine Aminotransferase (ALT/SGPT) 17 U/L (12-78) Alkaline Phosphatase 64 U/L (46-116) Total Protein 3.8 G/DL (6.4-8.2) L Albumin 1.3 G/DL (3.4-5.0) L Globulin 2.5 g/dL Albumin/Globulin Ratio 0.5 (1.0-2.7) L Plan Problems: (1) Lightheaded (2) Hypokalemia (3) Large bowel obstruction Assessment & Plan: 64-year-old female with abdominal distention potential large bowel obstruction. Afebrile, hemodynamic stable, labs noted no leukocytosis no pain no bleeding. No prior abdominal surgeries. Nausea and emesis clear liquid. Decreased appetite. Cannot recall last flatus or BM. CT as below. No direct mass or abnormality identified but there is absolutely identifiable transition at the rectosigmoid area with proximal dilatation. A colonoscopy is warranted but though would be with definitive risk of potential perforation. GI consult pending. Replace electrolytes. N.p.o. IV fluids will await scope for findings. Conceivably may require surgical intervention. Thank you for let me participate in patient's care will follow with recommendations GI consider for scope 02/17 will be available for surgery in case of emergency high risk for perforation or complication and understands. but strongly recommend scope prior to surgery for etiology purposes. s/p ex lap. see op report recovering okay to downgrade to tele npo okay for ice chips iv fluids abx tomas to stay in until ambulatory heparin petechia plt down hold heparin scds cont abx trend labs trial liquid diet ?air leak but afebrile, hd stable, no wbc, shift improved. needs K replacement plt trending down petechia CT pending electrolytes improved CT with mets to omentum likely was obstructed for significant period of time prior to surgery and tumor with mets. liver okay but post op she is declining. unfortunately prognosis is guarded. asked her if she wanted me to call anyone and declined ct noted. fluid and gas in colon and rectum distal to anastomosis. possible occult leak? but no fevers, no wbc, and exam without tenderness. rectal tube ordered liquid scant output tpn discussed with paul. pending labs. recommended for hospice There are several circumscribed low-density nonenhancing cysts noted in the liver. The spleen is homogeneous. Gallbladder is without sludge or stone and there is no wall thickening. The pancreas is unremarkable. Adrenals are normal in morphology. The kidneys are normal in size, shape and axis. Small bowel loops are nondistended. The dominant abnormality is severe colonic distention containing air-fluid levels and stool debris. Dilated colon extends down to the rectosigmoid junction where there is an apparent transition. The rectal vault is nondistended with only a small amount of stool. No definite discernible mass is detected there is There is no free fluid or free air. No pathologic adenopathy demonstrated. Bladder is empty. There is no suspicious superficial soft tissue or osseous abnormality. IMPRESSION: SEVERE COLONIC DISTENTION WITH AIR-FLUID LEVELS AND STOOL DEBRIS. THERE IS APPARENT TRANSITION AT THE RECTOSIGMOID JUNCTION WITH A RELATIVELY EMPTY RECTAL VAULT WITH ONLY SMALL AMOUNT OF STOOL. NO DEFINITE DISCERNIBLE MASS AT THE TRANSITION POINT. RECOMMEND GI CONSULTATION AND CONSIDER COLONOSCOPY. (4) Colon cancer Swapnil Brito Feb 29, 2020 12:14
--- NOTE | 2020-02-29 13:52 | NUR ---
NURSE NOTES: Dr Brito visited pt and is aware about pt's condition getting deteriorate and all labs and V/S, no new order to RN. Dr Brito answered no need to put pt in reverse isolation.
[2020-02-29 13:56] LABS: INR 1.2 (0.9-1.1)
[2020-02-29 16:00] VITALS: BP 126/75
--- NOTE | 2020-02-29 16:27 | NUR ---
CASE MANAGEMENT: REVIEW SI: COLON CA . LARGE BOWEL OBSTRUCTION . HYPER KALEMIA . S/P EX LAP LEFT COLECTOMY T 96.7 HR 96 RR 18 BP 126/75 SAT 95% ROOM AIR WBC 1.7 H/H 7.7/22.[address] 9 IS: VITAMIN K SUBQ ONCE A WK D5 NS w/KCl 40 MEQ IVF @ Q24HR START CLD START TPN TELEMETRY UNIT STATUS DCP: PATIENT IS FROM
--- NOTE | 2020-02-29 18:40 | NUR ---
NURSE NOTES: Dr Arnett called and ordered one bag platelet transfusion, noted and carried out. blood bank is aware. will continue to monitor.
--- NOTE | 2020-02-29 19:30 | NUR ---
NURSE HAND-OFF REPORT: Important Events on Shift: Patient Status: Diet: Pending Orders: Pending Results/Labs: Pending MD notification: Latest Vital Signs: Temperature 96.7 , Pulse 91 , B/P 126 /75 , Respiratory Rate 18 , O2 SAT 95 , Room Air, O2 Flow Rate 2.0 . Vital Sign Comment: EKG Rhythm: Sinus Rhythm Rhythm change?: N MD Notified?: N - MD Response: Latest Scherer Fall Score: 20 Fall Risk: Low Risk Safety Measures: Call light Within Reach, Bed Alarm Zone 1, Side Rails Side Rails x3, Bed position Low and Locked. Fall Precautions: Yellow Socks Yellow Gown Door Sign Patient Fall Education Report given to . pt is sleeping, Endorsed plan of care, endorsed to F/U TPN and plt transfusion.
--- NOTE | 2020-02-29 19:35 | NUR ---
NURSE NOTES: Pt received from RYANN Bettencourt. Pt is resting in bed and shows no signs of distress. Pt is A/Ox1 and lethargic; Opens eyes to shaking. Pt is on cardiac monitoring SR and asymptomatic. Pt has rectal tube draining well to gravity. Pt is breathing unlabored on RA. Pt has FC draining well to gravity. Pt has Sacral redness and RHip redness. Pt has LADARIUS Picc Line running D5NS w 40KCL 100ml/hr. Bed is locked in lowest position and call light is within reach. Will continue to monitor,
[2020-02-29 20:00] VITALS: BP 113/55
[2020-02-29] MEDS ORDERED: Dextrose 10% 1,000 ML IV PRN (20:00)
--- NOTE | 2020-02-29 20:00 | NUR ---
NURSE NOTES: Yoni pt blood for typing for platelet infusion. Pt TPN is being held until platelets are fully infused. Will continue to monitor.
[2020-02-29] MEDS: Dyna-Hex 2% Top Sol 2oz TOPIC SCH (20:23)
[2020-02-29] MEDS ORDERED: TBO-Filgrastim 480 mcg/0.8ml SQ SCH (21:00)
--- NOTE | 2020-02-29 21:05 | NUR ---
NURSE NOTES: Pt platelet infusion started. Pt initial VS T95.9 P98 BP107/76. Pt shows no signs of reaction or distress. Will continue to monitor.
--- NOTE | 2020-02-29 21:33 | NUR ---
NURSE NOTES: Pt has platelet infusion running for 15 minutes and shows no signs of distress or reaction. Pt VS T95.7 P97 BP96/81. Infusion rate increased to 110ml/hr. Will continue to monitor.
[2020-03-01] VITALS: BP 116/71
[2020-03-01] MEDS: DEXTROSE IV SCH ×4 (00:44→20:40)
[2020-03-01] MEDS: FAT EMULSION IV SCH ×4 (00:44→20:40)
[2020-03-01] MEDS: AMINO ACIDS IV SCH ×4 (00:44→20:40)
[2020-03-01 04:00] VITALS: BP 102/52
[2020-03-01] MEDS: NovoLOG Insulin Flexpen SUBQ SCH ×5 (06:00→23:27)
--- NOTE | 2020-03-01 06:28 | Hematology/Onc Progress Note ---
Assessment/Plan Assessment/Plan Assessment and Recs # Stage IV adenocarcinoma of the colon - biopsy report shows pT3, N2b, M1, lesion with omental metastasis, tumor markers pending as well asct a/p --> operative report reviewed, per surg, now POD 10 --> currently functional status very poor, at this time hold off further rx in re to chemo --> if functional status improves consider single agent PO drug xeloda and if improves further FOLFOX (combo) --> tumor markers ordered --> Ct a/p reviewed, no sig mets on scan, but does have omental mets, does show pneumoperitoneum --> appreciate surgical care # Thrombocytopenia - potential causes multifactorial, evaluate liver and viral etiologies to begin, severe and acute, did get heparin --> lactic acid 2.6, r/o sepsis --> Hep panel and HIV neg ==> hit ab negative --> ct a/p reviewed --> Peripheral smear ordered to evaluate for blasts /schistocytes -->does not show any --> abx and other meds have been reviewed --> transfuse to keep plt >20k --> meds reviewed --> plt 212-->30-->18->8 --> DIC panel has been ordered--> elev lactic acid 4.8 # Large bowel obstruction --> due to above cancer --> s/p surg # Hypokalemia --> replete with k # PALMER --> hypovolemic, now improved # Dvt ppx scds The timing of this note does not necessarily reflect the time of the patient was seen. Greatly appreciate consultation. Subjective Constitutional: Denies: no symptoms, chills, fever, malaise, weakness, other HEENT: Denies: no symptoms, eye pain, blurred vision, tearing, double vision, ear pain, ear discharge, nose pain, nose congestion, throat pain, throat swelling, mouth pain, mouth swelling, other Cardiovascular: Denies: no symptoms, chest pain, edema, irregular heart rate, lightheadedness, palpitations, syncope, other Respiratory: Denies: no symptoms, cough, shortness of breath, SOB with excertion, SOB at rest, sputum, wheezing, other Gastrointestinal/Abdominal: Denies: no symptoms, abdomen distended, abdominal pain, black stools, tarry stools, blood in stool, constipated, diarrhea, difficulty swallowing, nausea, poor appetite, poor fluid intake, rectal bleeding, vomiting, other Genitourinary: Denies: no symptoms, burning, discharge, frequency, flank pain, hematuria, incontinence, pain, urgency, other Neurologic/Psychiatric: Denies: no symptoms, anxiety, depressed, emotional problems, headache, numbness, paresthesia, pre-existing deficit, seizure, tingling, tremors, weakness, other Allergies: Coded Allergies: No Known Allergies (Unverified , 02/15/20) Subjective 02/28 asleep no bleeding, pending tumor markers, with decreased po intake 03/01 more awake dw RN at bedside this am, lactic acid remains elev, start on zosyn stat Objective Objective Current Medications Medications (Trade) Dose Ordered Sig/Fozia Route PRN Reason Start Time Stop Time Status Last Admin Dose Admin Acetaminophen (Tylenol) 650 mg Q6H PRN ORAL Mild Pain (Pain Scale 1-3) 02/18/20 17:15 03/19/20 17:14 Chlorhexidine Gluconate (Gail-Hex 2%) 1 applic DAILY@2000 TOPIC 02/25/20 20:00 05/25/20 19:59 02/29/20 20:23 Dextrose 1,000 ml @ 0 mls/hr Q24H PRN IV PN interrupted or unavailable 02/29/20 20:00 03/30/20 19:59 Dextrose (Dextrose 50%) 25 ml Q30M PRN IV Hypoglycemia 03/01/20 23:59 05/30/20 23:58 Dextrose (Dextrose 50%) 50 ml Q30M PRN IV Hypoglycemia 02/29/20 23:59 05/29/20 23:58 Dextrose/ Electrolytes 1,000 ml @ 31 mls/hr Q24H IV 02/29/20 20:00 03/30/20 19:59 02/29/20 20:22 Diphenhydramine HCl (Benadryl) 12.5 mg Q6H PRN IVP Itching/Pruritis 02/18/20 17:15 03/19/20 17:14 Fat Emulsion Intravenous 216 ml/Amino Acids/ Electrolytes/ Dextrose 1,656 ml @ 69 mls/hr Q24H IV 02/29/20 20:00 03/30/20 19:59 03/01/20 00:44 Insulin Aspart (NovoLOG) Q6HR SUBQ 03/01/20 00:00 05/30/20 00:00 Meclizine HCl (Antivert) 25 mg TID PRN ORAL for dizziness 02/20/20 20:30 03/21/20 20:29 Metoprolol Tartrate (Lopressor) 25 mg Q12HR ORAL 02/24/20 21:00 05/24/20 20:59 02/28/20 21:16 Ondansetron HCl (Zofran) 4 mg Q6H PRN IVP Nausea & Vomiting 02/18/20 17:15 03/19/20 17:14 Phytonadione (Vitamin K) 10 mg ONCE A WEEK SUBQ 03/07/20 09:00 06/05/20 08:59 Promethazine HCl 50 mg/Sodium Chloride 111 ml @ 222 mls/hr Q6H PRN IVPB for dizziness 02/20/20 20:45 03/21/20 20:44 02/20/20 21:42 Last 24 Hour Vital Signs Date Time Temp Pulse Resp B/P (MAP) Pulse Ox O2 Delivery O2 Flow Rate FiO2 03/01/20 04:00 98 03/01/20 04:00 96.6 96 15 102/52 (69) 94 03/01/20 00:00 97.3 75 15 116/71 (86) 93 03/01/20 00:00 98 02/29/20 21:00 Room Air 02/29/20 21:00 98 113/55 02/29/20 20:00 96.2 98 18 113/55 (74) 92 02/29/20 20:00 94 02/29/20 16:36 91 02/29/20 16:00 96.7 96 18 126/75 (92) 95 02/29/20 12:00 96.8 91 19 110/73 (85) 96 02/29/20 11:41 90 02/29/20 09:00 91 109/66 02/29/20 09:00 Room Air 02/29/20 08:00 96.7 91 20 109/66 (80) 98 02/29/20 07:46 90 02/29/20 04:00 97.5 84 16 110/84 (93) 96 02/29/20 04:00 91 02/29/20 00:00 96 02/29/20 00:00 97.7 92 18 120/70 (87) 96 02/28/20 21:16 89 113/68 02/28/20 21:00 Room Air 02/28/20 20:00 89 02/28/20 20:00 98.1 89 18 113/68 (83) 97 02/28/20 16:00 98.1 84 20 120/61 (80) 97 02/28/20 15:17 90 02/28/20 12:00 97.8 93 18 124/84 (97) 98 02/28/20 11:35 94 02/28/20 10:08 99 143/77 02/28/20 09:00 Room Air 02/28/20 08:00 97.0 99 20 143/77 (99) 97 02/28/20 07:30 98 Intake and Output 02/29/20 03/01/20 18:59 06:59 Intake Total 1650 ml Output Total 1200 ml 2000 ml Balance 450 ml -2000 ml Intake Oral 50 ml IV Total 1600 ml Output Urine Total 1200 ml 2000 ml Labs Test 02/27/20 07:40 02/28/20 08:10 02/28/20 10:10 02/28/20 16:32 Lactic Acid Level 2.60 mmol/L (0.66-2.22) 2.70 mmol/L (0.4-2.0) Heparin-PF4 Antibody Screen 0.07 OD (<0.40) Hepatitis A IgM Antibody Negative (Negative) Hepatitis B Surface Antigen Negative (Negative) Hepatitis B Core IgM Antibody Negative (Negative) Hepatitis C Antibody <0.1 s/co ratio White Blood Count 3.3 K/UL (4.8-10.8) Red Blood Count 3.26 M/UL (4.20-5.40) Hemoglobin 9.5 G/DL (12.0-16.0) Hematocrit 27.4 % (37.0-47.0) Mean Corpuscular Volume 84 FL (80-99) Mean Corpuscular Hemoglobin 29.1 PG (27.0-31.0) Mean Corpuscular Hemoglobin Concent 34.6 G/DL (32.0-36.0) Red Cell Distribution Width 12.9 % (11.6-14.8) Platelet Count 20 K/UL (150-450) Mean Platelet Volume 9.1 FL (6.5-10.1) Neutrophils (%) (Auto) % (45.0-75.0) Lymphocytes (%) (Auto) % (20.0-45.0) Monocytes (%) (Auto) % (1.0-10.0) Eosinophils (%) (Auto) % (0.0-3.0) Basophils (%) (Auto) % (0.0-2.0) Differential Total Cells Counted 100 Neutrophils % (Manual) 86 % (45-75) Lymphocytes % (Manual) 12 % (20-45) Monocytes % (Manual) 2 % (1-10) Eosinophils % (Manual) 0 % (0-3) Basophils % (Manual) 0 % (0-2) Band Neutrophils 0 % (0-8) Platelet Estimate Decreased Platelet Morphology Normal Hypochromasia 1+ Sodium Level 139 MMOL/L (136-145) Potassium Level 3.6 MMOL/L (3.5-5.1) Chloride Level 107 MMOL/L (98-107) Carbon Dioxide Level 24 MMOL/L (21-32) Anion Gap 8 mmol/L (5-15) Blood Urea Nitrogen 7 mg/dL (7-18) Creatinine 0.6 MG/DL (0.55-1.30) Estimat Glomerular Filtration Rate > 60 mL/min (>60) Glucose Level 123 MG/DL (74-106) Calcium Level 7.3 MG/DL (8.5-10.1) Phosphorus Level 3.2 MG/DL (2.5-4.9) Magnesium Level 1.7 MG/DL (1.8-2.4) Total Bilirubin 0.5 MG/DL (0.2-1.0) Aspartate Amino Transf (AST/SGOT) 20 U/L (15-37) Alanine Aminotransferase (ALT/SGPT) 21 U/L (12-78) Alkaline Phosphatase 76 U/L (46-116) Total Protein 4.0 G/DL (6.4-8.2) Albumin 1.5 G/DL (3.4-5.0) Globulin 2.5 g/dL Albumin/Globulin Ratio 0.6 (1.0-2.7) POC Whole Blood Glucose 133 MG/DL (74-106) Test 02/28/20 23:35 02/29/20 05:57 02/29/20 06:51 02/29/20 11:14 POC Whole Blood Glucose 124 MG/DL (74-106) 143 MG/DL (74-106) 129 MG/DL (74-106) White Blood Count 1.7 K/UL (4.8-10.8) Red Blood Count 2.65 M/UL (4.20-5.40) Hemoglobin 7.7 G/DL (12.0-16.0) Hematocrit 22.1 % (37.0-47.0) Mean Corpuscular Volume 83 FL (80-99) Mean Corpuscular Hemoglobin 28.9 PG (27.0-31.0) Mean Corpuscular Hemoglobin Concent 34.7 G/DL (32.0-36.0) Red Cell Distribution Width 12.7 % (11.6-14.8) Platelet Count 9 K/UL (150-450) Mean Platelet Volume 13.4 FL (6.5-10.1) Neutrophils (%) (Auto) % (45.0-75.0) Lymphocytes (%) (Auto) % (20.0-45.0) Monocytes (%) (Auto) % (1.0-10.0) Eosinophils (%) (Auto) % (0.0-3.0) Basophils (%) (Auto) % (0.0-2.0) Differential Total Cells Counted 100 Neutrophils % (Manual) 50 % (45-75) Lymphocytes % (Manual) 46 % (20-45) Monocytes % (Manual) 4 % (1-10) Eosinophils % (Manual) 0 % (0-3) Basophils % (Manual) 0 % (0-2) Band Neutrophils 0 % (0-8) Platelet Estimate Decreased Platelet Morphology Normal Hypochromasia 1+ Sodium Level 140 MMOL/L (136-145) Potassium Level 3.2 MMOL/L (3.5-5.1) Chloride Level 108 MMOL/L (98-107) Carbon Dioxide Level 21 MMOL/L (21-32) Anion Gap 11 mmol/L (5-15) Blood Urea Nitrogen 6 mg/dL (7-18) Creatinine 0.5 MG/DL (0.55-1.30) Estimat Glomerular Filtration Rate > 60 mL/min (>60) Glucose Level 136 MG/DL (74-106) Calcium Level 7.0 MG/DL (8.5-10.1) Total Bilirubin 0.3 MG/DL (0.2-1.0) Aspartate Amino Transf (AST/SGOT) 21 U/L (15-37) Alanine Aminotransferase (ALT/SGPT) 17 U/L (12-78) Alkaline Phosphatase 64 U/L (46-116) Total Protein 3.8 G/DL (6.4-8.2) Albumin 1.3 G/DL (3.4-5.0) Globulin 2.5 g/dL Albumin/Globulin Ratio 0.5 (1.0-2.7) Test 02/29/20 13:10 02/29/20 16:23 02/29/20 23:59 Prothrombin Time 13.4 SEC (9.30-11.50) Prothromb Time International Ratio 1.2 (0.9-1.1) Fibrinogen 354 mg/dL (200-400) Lactic Acid Level 4.80 mmol/L (0.4-2.0) 4.90 mmol/L (0.66-2.22) Lactate Dehydrogenase 304 U/L (81-234) POC Whole Blood Glucose 128 MG/DL (74-106) Height (Feet): 5 Height (Inches): 4.00 Weight (Pounds): 113 Objective General: NAD HEENT: nc, at Neck: supple Chest: clear breath sounds bilaterally Cardiovascular: RRR, no s3, s4 Abdomen: soft, nontender, nd, ++surgical site noted, c/d/i, healing ++ Extremities: no cce, normal range of motion Neuro: alert and oriented Gustavo Mon MD Mar 01, 2020 06:28
--- NOTE | 2020-03-01 06:49 | NUR ---
NURSE HAND-OFF REPORT: Important Events on Shift:Pt received platelets. Pt started TPN and pt handles 39 ml/hr well. Patient Status: Lethargic Diet: TPN Pending Results/Labs:AM Labs Pending MD notification:Awaiting reply for message Latest Vital Signs: Temperature 96.6 , Pulse 98 , B/P 102 /52 , Respiratory Rate 15 , O2 SAT 94 , Room Air, O2 Flow Rate 2.0 . Vital Sign Comment: VSS EKG Rhythm: Sinus Rhythm Rhythm change?: N MD Notified?: N - MD Response: Latest Scherer Fall Score: 20 Fall Risk: Low Risk Safety Measures: Call light Within Reach, Bed Alarm Zone 1, Side Rails Side Rails x3, Bed position Low and Locked. Fall Precautions: Yellow Socks Yellow Gown Door Sign Patient Fall Education Report given to RYANN Farrar.
--- NOTE | 2020-03-01 07:00 | NUR ---
NURSE NOTES: Received report from Patel/RN, Observed patient awake, lying semi-wong's, Lethargic. On room air, no acute distress/SOB noted at this time. PICC line on right upper arm, patent and intact. Leiva and rectal tube draining well to gravity. On pressure release mattress for skin protection. Bed in low position and locked, Call light within reach. Encouraged to use call light when needed. Bed alarm is on, side rails up x3. Will continue plan of care.
[2020-03-01 07:25] LABS: ANION GAP 6 mmol/L (5-15); BLOOD UREA NITROGEN 4 mg/dL (7-18); CALCIUM 6.9 MG/DL (8.5-10.1); CARBON DIOXIDE 27 MMOL/L (21-32); CHLORIDE 104 MMOL/L (98-107); CREATININE 0.5 MG/DL (0.55-1.30); PHOSPHORUS 2.2 MG/DL (2.5-4.9); POTASSIUM 3.2 MMOL/L (3.5-5.1); SODIUM 137 MMOL/L (136-145)
--- NOTE | 2020-03-01 07:40 | General Progress Note ---
Subjective ROS Limited/Unobtainable: No Allergies: Coded Allergies: No Known Allergies (Unverified , 02/15/20) Objective Last 24 Hour Vital Signs Date Time Temp Pulse Resp B/P (MAP) Pulse Ox O2 Delivery O2 Flow Rate FiO2 03/01/20 04:00 98 03/01/20 04:00 96.6 96 15 102/52 (69) 94 03/01/20 00:00 97.3 75 15 116/71 (86) 93 03/01/20 00:00 98 02/29/20 21:00 Room Air 02/29/20 21:00 98 113/55 02/29/20 20:00 96.2 98 18 113/55 (74) 92 02/29/20 20:00 94 02/29/20 16:36 91 02/29/20 16:00 96.7 96 18 126/75 (92) 95 02/29/20 12:00 96.8 91 19 110/73 (85) 96 02/29/20 11:41 90 02/29/20 09:00 91 109/66 02/29/20 09:00 Room Air 02/29/20 08:00 96.7 91 20 109/66 (80) 98 02/29/20 07:46 90 Intake and Output 02/29/20 03/01/20 18:59 06:59 Intake Total 1650 ml 1050 ml Output Total 1200 ml 3500 ml Balance 450 ml -2450 ml Intake Oral 50 ml 50 ml IV Total 1600 ml 1000 ml Output Urine Total 1200 ml 3500 ml # Bowel Movements 1 Laboratory Tests 02/29/20 11:14: POC Whole Blood Glucose 129H 02/29/20 13:10: Haptoglobin [Pending], Prothrombin Time 13.4H, Prothromb Time International Ratio 1.2H, Fibrinogen 354, Fibrin Degradation Products, Quant [Pending], Lactic Acid Level 4.80H, Lactate Dehydrogenase 304H 02/29/20 16:23: POC Whole Blood Glucose 128H 02/29/20 23:59: Lactic Acid Level 4.90H 03/01/20 05:45: Sodium Level 137, Potassium Level 3.2L, Chloride Level 104, Carbon Dioxide Level 27, Anion Gap 6, Blood Urea Nitrogen 4L, Creatinine 0.5L, Estimat Glomerular Filtration Rate > 60, Glucose Level 138H, Calcium Level 6.9L, Phosphorus Level 2.2L, Magnesium Level 1.3L Height (Feet): 5 Height (Inches): 4.00 Weight (Pounds): 113 General Appearance: no apparent distress EENT: normal ENT inspection Neck: supple Cardiovascular: normal rate Respiratory/Chest: decreased breath sounds Abdomen: soft, hypoactive bowel sounds, tender Extremities: non-tender Assessment/Plan Problem List: (1) Large bowel obstruction ICD Codes: K56.609 - Unspecified intestinal obstruction, unspecified as to partial versus complete obstruction SNOMED: 406548724 (2) Hypokalemia ICD Codes: E87.6 - Hypokalemia SNOMED: 46851407 (3) Lightheaded ICD Codes: R42 - Dizziness and giddiness SNOMED: 492373053 Status: stable Assessment/Plan: colon cancer with bowel obstruction s/p resection pending TPN on clears fu surg recs Graeme Hirsch MD Mar 01, 2020 07:40
--- NOTE | 2020-03-01 08:00 | NUR ---
TRANSFER TO FLOOR: Patient transferred to [facility], per Dr. Arnett order. Report given to Hugh/RN. Belongings and medications given to receiving nurse. Endorsed plan of care.
[2020-03-01 08:30] VITALS: BP 127/72
[2020-03-01] MEDS ORDERED: Calcium Gluconate 1gm/50ml 50 ML IVPB ONE (09:00)
--- NOTE | 2020-03-01 09:00 | NUR ---
NURSE NOTES: Received patient from RYANN Farrar - Telemetry nurse under the care of Dr. Zacarias for the admitting dx. of Bowel obstruction and hypokalemia. Patient was transferred to SDU because of low platelet count and low WBC. Patient is alert and awake but is lethargic and drowsy, follows commands. Will continue to monitor.
[2020-03-01 09:05] LABS: HEMATOCRIT 20.7 % (37.0-47.0); HEMOGLOBIN 7.3 G/DL (12.0-16.0); MEAN CORPUSCULAR VOLUME 83 FL (80-99); RED BLOOD COUNT 2.48 M/UL (4.20-5.40); RED CELL DISTRIBUTION WIDTH 12.6 % (11.6-14.8)
--- NOTE | 2020-03-01 09:18 | NUR ---
PT DISCHARGE NOTE Patient transferred to SDU. Will discharge patient from PT services at this time due to transfer/decline in medical condition. PT services can be resumed when patient is able to participate with PT with new MD order. Karolina robles RN notified.
[2020-03-01 09:31] LABS: PLATELET COUNT 45 K/UL (150-450); WHITE BLOOD COUNT 1.2 K/UL (4.8-10.8)
--- NOTE | 2020-03-01 10:00 | NUR ---
NURSE NOTES: Dr. Arnett made aware of critical labs with new orders noted and carried out.
--- NOTE | 2020-03-01 11:00 | NUR ---
NURSE NOTES: Seen and examined by Dr. Brito with new orders noted and carried out.
[2020-03-01 12:00] VITALS: BP 113/70
--- NOTE | 2020-03-01 12:23 | NUR ---
RESOURCE PROTECTION SPECIALIST NOTE SW attempted to obtain emergency contact from pt. Pt reports she has been residing w/ her roommates at [address] [place] [address]. PT does not have any children/family members/POA. Therefore, pt does not have any emergency contact.
[2020-03-01] MEDS: Magnesium Sulfate 1gm/100ml IVPB SCH ×4 (12:33→16:45)
--- NOTE | 2020-03-01 12:42 | Surgery Progress Note ---
Surgery Progress Note Subjective Procedure Performed ex lap left colectomy mobilization of splenic flexure omentectomy primary anastomosis Additional Comments was lethargic this AM. transferred to [facility] now awake and alert. responsive. states she is okay discussed her condition and decline. unsafe for surgical intervention at this time given plt/labs/decline asked if she wanted me to discuss or call family / friends and declined Objective Last 24 Hour Vital Signs Date Time Temp Pulse Resp B/P (MAP) Pulse Ox O2 Delivery O2 Flow Rate FiO2 03/01/20 09:58 102 126/72 03/01/20 09:00 Room Air 03/01/20 08:30 97.3 102 15 127/72 (90) 96 03/01/20 08:00 103 03/01/20 04:00 98 03/01/20 04:00 96.6 96 15 102/52 (69) 94 03/01/20 00:00 97.3 75 15 116/71 (86) 93 03/01/20 00:00 98 02/29/20 21:00 Room Air 02/29/20 21:00 98 113/55 02/29/20 20:00 96.2 98 18 113/55 (74) 92 02/29/20 20:00 94 02/29/20 16:36 91 02/29/20 16:00 96.7 96 18 126/75 (92) 95 I&O Intake and Output 02/29/20 03/01/20 18:59 06:59 Intake Total 1650 ml 1050 ml Output Total 1200 ml 3500 ml Balance 450 ml -2450 ml Intake Oral 50 ml 50 ml IV Total 1600 ml 1000 ml Output Urine Total 1200 ml 3500 ml # Bowel Movements 1 Dressing: other Wound: other Cardiovascular: RSR Respiratory: decreased breath sounds Abdomen: soft, distended, non-tender, decreased bowel sounds Extremities: no edema, no tenderness, no cyanosis Laboratory Tests Test 02/29/20 13:10 02/29/20 16:23 02/29/20 23:59 03/01/20 05:45 Haptoglobin Pending Prothrombin Time 13.4 SEC (9.30-11.50) H Prothromb Time International Ratio 1.2 (0.9-1.1) H Fibrinogen 354 mg/dL (200-400) Fibrin Degradation Products, Quant Pending Lactic Acid Level 4.80 mmol/L (0.4-2.0) H 4.90 mmol/L (0.66-2.22) H Lactate Dehydrogenase 304 U/L (81-234) H POC Whole Blood Glucose 128 MG/DL (74-106) H Sodium Level 137 MMOL/L (136-145) Potassium Level 3.2 MMOL/L (3.5-5.1) L Chloride Level 104 MMOL/L (98-107) Carbon Dioxide Level 27 MMOL/L (21-32) Anion Gap 6 mmol/L (5-15) Blood Urea Nitrogen 4 mg/dL (7-18) L Creatinine 0.5 MG/DL (0.55-1.30) L Estimat Glomerular Filtration Rate > 60 mL/min (>60) Glucose Level 138 MG/DL (74-106) H Calcium Level 6.9 MG/DL (8.5-10.1) L Phosphorus Level 2.2 MG/DL (2.5-4.9) L Magnesium Level 1.3 MG/DL (1.8-2.4) L Test 03/01/20 08:45 03/01/20 11:44 White Blood Count 1.2 K/UL (4.8-10.8) *L Red Blood Count 2.48 M/UL (4.20-5.40) L Hemoglobin 7.3 G/DL (12.0-16.0) L Hematocrit 20.7 % (37.0-47.0) L Mean Corpuscular Volume 83 FL (80-99) Mean Corpuscular Hemoglobin 29.4 PG (27.0-31.0) Mean Corpuscular Hemoglobin Concent 35.3 G/DL (32.0-36.0) Red Cell Distribution Width 12.6 % (11.6-14.8) Platelet Count 45 K/UL (150-450) #L Mean Platelet Volume 8.3 FL (6.5-10.1) Neutrophils (%) (Auto) % (45.0-75.0) Lymphocytes (%) (Auto) % (20.0-45.0) Monocytes (%) (Auto) % (1.0-10.0) Eosinophils (%) (Auto) % (0.0-3.0) Basophils (%) (Auto) % (0.0-2.0) Differential Total Cells Counted 100 Neutrophils % (Manual) 50 % (45-75) Lymphocytes % (Manual) 43 % (20-45) Monocytes % (Manual) 1 % (1-10) Eosinophils % (Manual) 0 % (0-3) Basophils % (Manual) 0 % (0-2) Band Neutrophils 6 % (0-8) Platelet Estimate Decreased L Platelet Morphology Normal Red Blood Cell Morphology Normal POC Whole Blood Glucose 148 MG/DL (74-106) H Plan Problems: (1) Lightheaded (2) Hypokalemia (3) Large bowel obstruction Assessment & Plan: 64-year-old female with abdominal distention potential large bowel obstruction. Afebrile, hemodynamic stable, labs noted no leukocytosis no pain no bleeding. No prior abdominal surgeries. Nausea and emesis clear liquid. Decreased appetite. Cannot recall last flatus or BM. CT as below. No direct mass or abnormality identified but there is absolutely identifiable transition at the rectosigmoid area with proximal dilatation. A colonoscopy is warranted but though would be with definitive risk of potential perforation. GI consult pending. Replace electrolytes. N.p.o. IV fluids will await scope for findings. Conceivably may require surgical intervention. Thank you for let me participate in patient's care will follow with recommendations GI consider for scope 02/17 will be available for surgery in case of emergency high risk for perforation or complication and understands. but strongly recommend scope prior to surgery for etiology purposes. s/p ex lap. see op report recovering okay to downgrade to tele npo okay for ice chips iv fluids abx tomas to stay in until ambulatory heparin petechia plt down hold heparin scds cont abx trend labs trial liquid diet ?air leak but afebrile, hd stable, no wbc, shift improved. needs K replacement plt trending down petechia CT pending electrolytes improved CT with mets to omentum likely was obstructed for significant period of time prior to surgery and tumor with mets. liver okay but post op she is declining. unfortunately prognosis is guarded. asked her if she wanted me to call anyone and declined ct noted. fluid and gas in colon and rectum distal to anastomosis. possible occult leak? but no fevers, no wbc, and exam without tenderness. rectal tube ordered liquid scant output tpn discussed with paul. pending labs. recommended for hospice discussed her condition and decline. unsafe for surgical intervention at this time given plt/labs/decline asked if she wanted me to discuss or call family / friends and declined There are several circumscribed low-density nonenhancing cysts noted in the liver. The spleen is homogeneous. Gallbladder is without sludge or stone and there is no wall thickening. The pancreas is unremarkable. Adrenals are normal in morphology. The kidneys are normal in size, shape and axis. Small bowel loops are nondistended. The dominant abnormality is severe colonic distention containing air-fluid levels and stool debris. Dilated colon extends down to the rectosigmoid junction where there is an apparent transition. The rectal vault is nondistended with only a small amount of stool. No definite discernible mass is detected there is There is no free fluid or free air. No pathologic adenopathy demonstrated. Bladder is empty. There is no suspicious superficial soft tissue or osseous abnormality. IMPRESSION: SEVERE COLONIC DISTENTION WITH AIR-FLUID LEVELS AND STOOL DEBRIS. THERE IS APPARENT TRANSITION AT THE RECTOSIGMOID JUNCTION WITH A RELATIVELY EMPTY RECTAL VAULT WITH ONLY SMALL AMOUNT OF STOOL. NO DEFINITE DISCERNIBLE MASS AT THE TRANSITION POINT. RECOMMEND GI CONSULTATION AND CONSIDER COLONOSCOPY. (4) Colon cancer Swapnil Brito Mar 01, 2020 12:42
--- NOTE | 2020-03-01 13:01 | Nephrology Progress Note ---
Assessment/Plan Plan #Severe hypokalemia #Abdominal distention - bowel obstruction due to colonic mass- s/p resection #lactic acidosis #htn #Dehydration #HLD - s/p resection - TPN - replete lyres - monitor lactic acidic level - replete K, elvi mag - check vitamin D level - IVF- switch to D5NS + 40 kcl - replete K, mag and phos - NPO - monitor lytes - avoid nephrotoxins - gen surg eval Subjective ROS Limited/Unobtainable: Yes Subjective s/p resection CT with mets to omentum more lethargic transferred to STEP down unit started on TPN NPO Objective Objective Last 24 Hour Vital Signs Date Time Temp Pulse Resp B/P (MAP) Pulse Ox O2 Delivery O2 Flow Rate FiO2 03/01/20 12:00 97.3 96 20 113/70 (84) 96 03/01/20 09:58 102 126/72 03/01/20 09:00 Room Air 03/01/20 08:30 97.3 102 15 127/72 (90) 96 03/01/20 08:00 103 03/01/20 04:00 98 03/01/20 04:00 96.6 96 15 102/52 (69) 94 03/01/20 00:00 97.3 75 15 116/71 (86) 93 03/01/20 00:00 98 02/29/20 21:00 Room Air 02/29/20 21:00 98 113/55 02/29/20 20:00 96.2 98 18 113/55 (74) 92 02/29/20 20:00 94 02/29/20 16:36 91 02/29/20 16:00 96.7 96 18 126/75 (92) 95 Intake and Output 02/29/20 03/01/20 19:00 07:00 Intake Total 1500 ml 1050 ml Output Total 2000 ml 1500 ml Balance -500 ml -450 ml Intake Oral 50 ml IV Total 1500 ml 1000 ml Output Urine Total 2000 ml 1500 ml # Bowel Movements 1 Laboratory Tests 02/29/20 13:10: Haptoglobin [Pending], Prothrombin Time 13.4H, Prothromb Time International Ratio 1.2H, Fibrinogen 354, Fibrin Degradation Products, Quant [Pending], Lactic Acid Level 4.80H, Lactate Dehydrogenase 304H 02/29/20 16:23: POC Whole Blood Glucose 128H 02/29/20 23:59: Lactic Acid Level 4.90H 03/01/20 05:45: Sodium Level 137, Potassium Level 3.2L, Chloride Level 104, Carbon Dioxide Level 27, Anion Gap 6, Blood Urea Nitrogen 4L, Creatinine 0.5L, Estimat Glomerular Filtration Rate > 60, Glucose Level 138H, Calcium Level 6.9L, Phosphorus Level 2.2L, Magnesium Level 1.3L 03/01/20 08:45: White Blood Count 1.2*L, Red Blood Count 2.48L, Hemoglobin 7.3L, Hematocrit 20.7L, Mean Corpuscular Volume 83, Mean Corpuscular Hemoglobin 29.4, Mean Corpuscular Hemoglobin Concent 35.3, Red Cell Distribution Width 12.6, Platelet Count 45#L, Mean Platelet Volume 8.3, Neutrophils (%) (Auto) , Lymphocytes (%) (Auto) , Monocytes (%) (Auto) , Eosinophils (%) (Auto) , Basophils (%) (Auto) , Differential Total Cells Counted 100, Neutrophils % (Manual) 50, Lymphocytes % (Manual) 43, Monocytes % (Manual) 1, Eosinophils % (Manual) 0, Basophils % (Manual) 0, Band Neutrophils 6, Platelet Estimate DecreasedL, Platelet Morphology Normal, Red Blood Cell Morphology Normal 03/01/20 11:44: POC Whole Blood Glucose 148H Height (Feet): 5 Height (Inches): 4.00 Weight (Pounds): 113 Yakelin Arnett M.D. Mar 01, 2020 13:01
--- NOTE | 2020-03-01 13:20 | NUR ---
NURSE NOTES: Seen and aexamined by Dr. Arnett with new orders noted and carried out.
--- NOTE | 2020-03-01 13:56 | NUR ---
CASE MANAGEMENT:REVIEW 03/01/20 SI:COLON CA . LARGE BOWEL OBSTRUCTION . HYPER KALEMIA . S/P EX LAP LEFT COLECTOMY 97.3 102 15 127/72 96% ON RA WBC-1.2 H/H-7.3/20.7 PLT-45 MAG-1.3 IS: IV ZOSYN Q8HRS IV NA PHOS X1 VIT K SQ Q WEEK IV MAG SULFATE Q1HRS X4 BAGS TPN/IL @ 24/HR IVF@31/HR : UPGRADED FROM TELEMETRY TO STEP DOWN UNIT
[2020-03-01] MEDS: Potassium Phosphate 15mm/250ml 250 ML IVPB SCH ×2 (14:08→20:11)
[2020-03-01] MEDS: Piperacillin/Tazobactam 3.375 GM in NS 110 ML IVPB SCH ×2 (14:09→21:27)
[2020-03-01 16:00] VITALS: BP 113/61
--- NOTE | 2020-03-01 16:09 | Cardiac Electrophysiology PN ---
Assessment/Plan Assessment/Plan 1. Nonsustained VT 5 beats and Palpitations. No recurrence after hypokalemia corrected. Echo EF 55%. On Metoprolol 25 po bid 2. Sinus tach and anemia better on Metoprolol 25 po bid and after PRBC 3. Bowel obstruction. S/P ex lap, left colectomy, mobilization of splenic flexure by Dr Brito, CT abdomen Free fluid seen in the abdomen and pelvis with multiple fluid- filled loops of small and large bowel which may be associated with ileus or enteritis without focal transition point. Lung bases appear worse from the prior exam. Increased free fluid within the abdomen. FU Gi and surgery. On Clear liquid diet 4. Hypokalemia replaced with iv K and Mg. 5. PVCs and dizziness 6. Anemia with Hb 6.9. s/p PRBC 02/26/20 again. S/P CT abdomen and pelvis DW RN Subjective Subjective No more VT since the 5 beats of VT on 02/21/20. In NSR on Lopressor 25 bid. On Clear Liquid diet and received PRBC. Not eating much Objective Last 24 Hour Vital Signs Date Time Temp Pulse Resp B/P (MAP) Pulse Ox O2 Delivery O2 Flow Rate FiO2 03/01/20 12:00 97.3 96 20 113/70 (84) 96 03/01/20 12:00 96 03/01/20 09:58 102 126/72 03/01/20 09:00 Room Air 03/01/20 08:30 97.3 102 15 127/72 (90) 96 03/01/20 08:00 103 03/01/20 04:00 98 03/01/20 04:00 96.6 96 15 102/52 (69) 94 03/01/20 00:00 97.3 75 15 116/71 (86) 93 03/01/20 00:00 98 02/29/20 21:00 Room Air 02/29/20 21:00 98 113/55 02/29/20 20:00 96.2 98 18 113/55 (74) 92 02/29/20 20:00 94 02/29/20 16:36 91 Intake and Output 02/29/20 03/01/20 19:00 07:00 Intake Total 1500 ml 1050 ml Output Total 2000 ml 1500 ml Balance -500 ml -450 ml Intake Oral 50 ml IV Total 1500 ml 1000 ml Output Urine Total 2000 ml 1500 ml # Bowel Movements 1 Laboratory Tests Test 02/29/20 16:23 02/29/20 23:59 03/01/20 05:45 03/01/20 08:45 POC Whole Blood Glucose 128 MG/DL (74-106) H Lactic Acid Level 4.90 mmol/L (0.66-2.22) H Sodium Level 137 MMOL/L (136-145) Potassium Level 3.2 MMOL/L (3.5-5.1) L Chloride Level 104 MMOL/L (98-107) Carbon Dioxide Level 27 MMOL/L (21-32) Anion Gap 6 mmol/L (5-15) Blood Urea Nitrogen 4 mg/dL (7-18) L Creatinine 0.5 MG/DL (0.55-1.30) L Estimat Glomerular Filtration Rate > 60 mL/min (>60) Glucose Level 138 MG/DL (74-106) H Calcium Level 6.9 MG/DL (8.5-10.1) L Phosphorus Level 2.2 MG/DL (2.5-4.9) L Magnesium Level 1.3 MG/DL (1.8-2.4) L White Blood Count 1.2 K/UL (4.8-10.8) *L Red Blood Count 2.48 M/UL (4.20-5.40) L Hemoglobin 7.3 G/DL (12.0-16.0) L Hematocrit 20.7 % (37.0-47.0) L Mean Corpuscular Volume 83 FL (80-99) Mean Corpuscular Hemoglobin 29.4 PG (27.0-31.0) Mean Corpuscular Hemoglobin Concent 35.3 G/DL (32.0-36.0) Red Cell Distribution Width 12.6 % (11.6-14.8) Platelet Count 45 K/UL (150-450) #L Mean Platelet Volume 8.3 FL (6.5-10.1) Neutrophils (%) (Auto) % (45.0-75.0) Lymphocytes (%) (Auto) % (20.0-45.0) Monocytes (%) (Auto) % (1.0-10.0) Eosinophils (%) (Auto) % (0.0-3.0) Basophils (%) (Auto) % (0.0-2.0) Differential Total Cells Counted 100 Neutrophils % (Manual) 50 % (45-75) Lymphocytes % (Manual) 43 % (20-45) Monocytes % (Manual) 1 % (1-10) Eosinophils % (Manual) 0 % (0-3) Basophils % (Manual) 0 % (0-2) Band Neutrophils 6 % (0-8) Platelet Estimate Decreased L Platelet Morphology Normal Red Blood Cell Morphology Normal Test 03/01/20 11:44 POC Whole Blood Glucose 148 MG/DL (74-106) H Objective HEENT: No JVD Cardiovascular: RSR. No GRM Respiratory: clear Abdomen: soft, non-tender. Jessica intact with no drain Extremities: no edema, no tenderness, no cyanosis Peter Quintana MD Mar 01, 2020 16:09
[2020-03-01] MEDS ORDERED: SODIUM PHOSPHATE IVPB ONE (17:00)
[2020-03-01] MEDS ORDERED: NS IVPB ONE (17:00)
--- NOTE | 2020-03-01 17:30 | NUR ---
NURSE NOTES: Patient wound pictures uploaded. Will continue to monitor.
--- NOTE | 2020-03-01 19:00 | NUR ---
NURSE NOTES: RECEIVED REPORT FROM RYANN MAX. PATIENT IS AAOX3-4, VERBALLY RESPONSIVE AND ABLE TO MAKE NEEDS KNOWN. PATIENT APPEARS DROWSY. NOTED TO HAVE PETECHIAE ALL OVER BODY. NO COMPLAINTS OF PAIN OR DISCOMFORT AT THIS TIME. BREATHING IS EVEN AND UNLABORED ON ROOM AIR, NO S/SX OF DISTRESS NOTED. NOTED TO HAVE LADARIUS PICC LINE WITH FLUIDS AND TPN RUNNING PRESCRIBED. CONNOLLY CATHETER DRAINING WELL TO GRAVITY, URINE CLEAR AND YELLOW IN COLOR. FALL AND ASPIRATION PRECAUTIONS IN PLACE. BED LOCKED AND IN LOWEST POSITION, SIDERAILS UP X 3. CALL LIGHT WITHIN REACH. WILL CONTINUE TO MONITOR.
--- NOTE | 2020-03-01 19:05 | NUR ---
NURSE HAND-OFF REPORT: Important Events on Shift: Electrolytes were ordered by MD, noted and carried out. Patient Status: Stable Diet: Full liquid. On TPN. Pending Orders: Pending Results/Labs: Pending MD notification: Latest Vital Signs: Temperature 97.9 , Pulse 102 , B/P 113 /61 , Respiratory Rate 24 , O2 SAT 95 , Room Air, O2 Flow Rate 2.0 . Vital Sign Comment: WNL EKG Rhythm: Sinus Tachycardia Rhythm change?: N MD Notified?: N - MD Response: Latest Scherer Fall Score: 20 Fall Risk: Low Risk Safety Measures: Call light Within Reach, Bed Alarm Zone 1, Side Rails Side Rails x3, Bed position Low and Locked. Fall Precautions: Yellow Socks Yellow Gown Door Sign Patient Fall Education Report given to RYANN Melendrez.
[2020-03-01 20:00] VITALS: BP 112/71
[2020-03-01] MEDS: D5NS w/KCl 40mEq 1000ml 1,000 ML IV SCH (20:00)
[2020-03-01] MEDS: Dyna-Hex 2% Top Sol 2oz TOPIC SCH (20:10)
--- NOTE | 2020-03-01 21:50 | NUR ---
NURSE NOTES: UNABLE TO COLLECT SPUTUM SAMPLE- PER PATIENT, HIS COUGH IS DRY. WILL TRY AGAIN AT A LATER TIME. Addendum: 03/02/20 at 0411 by Jackie Rosales RN *DISREGARD: WRONG PATIENT*
--- NOTE | 2020-03-01 22:00 | NUR ---
NURSE NOTES: PATIENT ASLEEP, APPEARS CALM AND COMFORTABLE WITH NO S/SX OF PAIN/DISCOMFORT, OR CARDIOPULMONARY DISTRESS. TPN AND FLUIDS RUNNING PRESCRIBED. PATIENT NOTED TO HAVE COPIOUS SECRETIONS COMING FROM MOUTH. ORAL CARE PROVIDED, GOWN CHANGED, PATIENT REPOSITIONED. WILL CONTINUE TO MONITOR.
[2020-03-02] VITALS: BP 111/65
[2020-03-02 04:00] VITALS: BP 110/77
--- NOTE | 2020-03-02 04:06 | NUR ---
NURSE NOTES: PATIENT GIVEN COMPLETE SPONGE BATH, COMPLETE LINEN CHANGED. SCDS CHANGED SINCE PREVIOUS ONES SOILED. ORAL CARE PROVIDED. PATIENT TOLERATED WELL.
[2020-03-02 04:52] LABS: HEMATOCRIT 21.3 % (37.0-47.0); HEMOGLOBIN 7.4 G/DL (12.0-16.0); MEAN CORPUSCULAR VOLUME 83 FL (80-99); PLATELET COUNT 30 K/UL (150-450); RED BLOOD COUNT 2.55 M/UL (4.20-5.40); RED CELL DISTRIBUTION WIDTH 12.4 % (11.6-14.8)
[2020-03-02] MEDS: Piperacillin/Tazobactam 3.375 GM in NS 110 ML IVPB SCH ×3 (05:03→22:04)
[2020-03-02] MEDS: NovoLOG Insulin Flexpen SUBQ SCH ×3 (05:13→17:53)
[2020-03-02 05:22] LABS: WHITE BLOOD COUNT 1.4 K/UL (4.8-10.8)
[2020-03-02 05:33] LABS: ALANINE AMINOTRANSFERASE 16 U/L (12-78); ALBUMIN 1.1 G/DL (3.4-5.0); ALBUMIN/GLOBULIN RATIO 0.5 (1.0-2.7); ALKALINE PHOSPHATASE 86 U/L (46-116); ANION GAP 5 mmol/L (5-15); ASPARTATE AMINO TRANSFERASE 19 U/L (15-37); BILIRUBIN,TOTAL 0.3 MG/DL (0.2-1.0); BLOOD UREA NITROGEN 10 mg/dL (7-18); CALCIUM 7.2 MG/DL (8.5-10.1); CARBON DIOXIDE 29 MMOL/L (21-32); CHLORIDE 104 MMOL/L (98-107); CREATININE 0.4 MG/DL (0.55-1.30); PHOSPHORUS 3.8 MG/DL (2.5-4.9); POTASSIUM 2.9 MMOL/L (3.5-5.1); SODIUM 138 MMOL/L (136-145)
--- NOTE | 2020-03-02 06:43 | Hematology/Onc Progress Note ---
Assessment/Plan Assessment/Plan Assessment and Recs # Stage IV adenocarcinoma of the colon - biopsy report shows pT3, N2b, M1, lesion with omental metastasis, tumor markers reviewed, just cea 8.5, as well as ct a/p reviewed --> operative report reviewed, per surg, surg ws 02/21/2020 --> currently functional status very poor, at this time hold off further rx in re to chemo --> tumor markers ordered, reviewed, only cea elev --> Ct a/p reviewed, no sig mets on scan, but does have omental mets, does show pneumoperitoneum --> if functional status improves consider single agent PO drug xeloda and if improves further FOLFOX (combo) # Thrombocytopenia - potential causes multifactorial, evaluate liver and viral etiologies to begin, severe and acute, did get heparin --> lactic acid 2.6, r/o sepsis --> Hep panel and HIV neg ==> hit ab negative --> ct a/p reviewed --> Peripheral smear ordered to evaluate for blasts /schistocytes -->does not show any --> abx and other meds have been reviewed --> transfuse to keep plt >20k --> meds reviewed --> plt 212-->30-->18->8 --> DIC panel has been ordered--> elev lactic acid 4.8 --> ABX zosyn # Large bowel obstruction --> due to above cancer --> s/p surg # Hypokalemia --> replete with k # PALMER --> hypovolemic, now improved # Dvt ppx scds The timing of this note does not necessarily reflect the time of the patient was seen. Greatly appreciate consultation. Subjective HEENT: Denies: no symptoms, eye pain, blurred vision, tearing, double vision, ear pain, ear discharge, nose pain, nose congestion, throat pain, throat swelling, mouth pain, mouth swelling, other Cardiovascular: Denies: no symptoms, chest pain, edema, irregular heart rate, lightheadedness, palpitations, syncope, other Respiratory: Denies: no symptoms, cough, shortness of breath, SOB with excertion, SOB at rest, sputum, wheezing, other Neurologic/Psychiatric: Denies: no symptoms, anxiety, depressed, emotional problems, headache, numbness, paresthesia, pre-existing deficit, seizure, tingling, tremors, weakness, other Endocrine: Denies: no symptoms, excessive sweating, flushing, intolerance to cold, intolerance to heat, increased hunger, increased thirst, increased urine, unexplained weight gain, unexplained weight loss, other Hematologic/Lymphatic: Denies: no symptoms, anemia, easy bleeding, easy bruising, adenopathy, other Allergies: Coded Allergies: No Known Allergies (Unverified , 02/15/20) Subjective 02/28 asleep no bleeding, pending tumor markers, with decreased po intake 03/01 more awake dw RN at bedside this am, lactic acid remains elev, start on zosyn stat 03/02 is calm, comfortable, labs noted, tumor markers reviewed, no bm Objective Objective Current Medications Medications (Trade) Dose Ordered Sig/Fozia Route PRN Reason Start Time Stop Time Status Last Admin Dose Admin Acetaminophen (Tylenol) 650 mg Q6H PRN ORAL Mild Pain (Pain Scale 1-3) 02/18/20 17:15 03/19/20 17:14 Chlorhexidine Gluconate (Gail-Hex 2%) 1 applic DAILY@2000 TOPIC 02/25/20 20:00 05/25/20 19:59 03/01/20 20:10 Dextrose 1,000 ml @ 0 mls/hr Q24H PRN IV PN interrupted or unavailable 02/29/20 20:00 03/30/20 19:59 Dextrose (Dextrose 50%) 25 ml Q30M PRN IV Hypoglycemia 03/01/20 23:59 05/30/20 23:58 Dextrose (Dextrose 50%) 50 ml Q30M PRN IV Hypoglycemia 02/29/20 23:59 05/29/20 23:58 Dextrose/ Electrolytes 1,000 ml @ 31 mls/hr Q24H IV 02/29/20 20:00 03/30/20 19:59 02/29/20 20:22 Diphenhydramine HCl (Benadryl) 12.5 mg Q6H PRN IVP Itching/Pruritis 02/18/20 17:15 03/19/20 17:14 Fat Emulsion Intravenous 216 ml/Amino Acids/ Electrolytes/ Dextrose 1,656 ml @ 69 mls/hr Q24H IV 02/29/20 20:00 03/30/20 19:59 03/01/20 20:40 Insulin Aspart (NovoLOG) Q6HR SUBQ 03/01/20 00:00 05/30/20 00:00 03/02/20 05:13 Meclizine HCl (Antivert) 25 mg TID PRN ORAL for dizziness 02/20/20 20:30 03/21/20 20:29 Metoprolol Tartrate (Lopressor) 25 mg Q12HR ORAL 02/24/20 21:00 05/24/20 20:59 03/01/20 20:12 Ondansetron HCl (Zofran) 4 mg Q6H PRN IVP Nausea & Vomiting 02/18/20 17:15 03/19/20 17:14 Phytonadione (Vitamin K) 10 mg ONCE A WEEK SUBQ 03/07/20 09:00 06/05/20 08:59 Piperacillin Sod/ Tazobactam Sod 3.375 gm/Sodium Chloride 110 ml @ 27.5 mls/hr EVERY 8 HOURS IVPB 03/01/20 14:00 03/06/20 13:59 03/02/20 05:03 Promethazine HCl 50 mg/Sodium Chloride 111 ml @ 222 mls/hr Q6H PRN IVPB for dizziness 02/20/20 20:45 03/21/20 20:44 02/20/20 21:42 Last 24 Hour Vital Signs Date Time Temp Pulse Resp B/P (MAP) Pulse Ox O2 Delivery O2 Flow Rate FiO2 03/02/20 04:00 117 03/02/20 04:00 97.2 105 20 110/77 (88) 99 03/02/20 00:00 97.3 100 20 111/65 (80) 99 03/02/20 00:00 100 03/01/20 21:00 Room Air 03/01/20 20:12 104 113/65 03/01/20 20:00 106 03/01/20 20:00 97.2 107 20 112/71 (85) 97 03/01/20 16:00 102 03/01/20 16:00 97.9 104 24 113/61 (78) 95 03/01/20 12:00 97.3 96 20 113/70 (84) 96 03/01/20 12:00 96 03/01/20 09:58 102 126/72 03/01/20 09:00 Room Air 03/01/20 08:30 97.3 102 15 127/72 (90) 96 03/01/20 08:00 103 03/01/20 04:00 98 03/01/20 04:00 96.6 96 15 102/52 (69) 94 03/01/20 00:00 97.3 75 15 116/71 (86) 93 03/01/20 00:00 98 02/29/20 21:00 Room Air 02/29/20 21:00 98 113/55 02/29/20 20:00 96.2 98 18 113/55 (74) 92 02/29/20 20:00 94 02/29/20 16:36 91 02/29/20 16:00 96.7 96 18 126/75 (92) 95 02/29/20 12:00 96.8 91 19 110/73 (85) 96 02/29/20 11:41 90 02/29/20 09:00 91 109/66 02/29/20 09:00 Room Air 02/29/20 08:00 96.7 91 20 109/66 (80) 98 02/29/20 07:46 90 Intake and Output 03/01/20 03/02/20 19:00 07:00 Intake Total 100 ml 854 ml Balance 100 ml 854 ml IV Total 100 ml 854 ml Labs Test 02/28/20 08:10 02/28/20 10:10 02/28/20 16:32 02/28/20 23:35 White Blood Count 3.3 K/UL (4.8-10.8) Red Blood Count 3.26 M/UL (4.20-5.40) Hemoglobin 9.5 G/DL (12.0-16.0) Hematocrit 27.4 % (37.0-47.0) Mean Corpuscular Volume 84 FL (80-99) Mean Corpuscular Hemoglobin 29.1 PG (27.0-31.0) Mean Corpuscular Hemoglobin Concent 34.6 G/DL (32.0-36.0) Red Cell Distribution Width 12.9 % (11.6-14.8) Platelet Count 20 K/UL (150-450) Mean Platelet Volume 9.1 FL (6.5-10.1) Neutrophils (%) (Auto) % (45.0-75.0) Lymphocytes (%) (Auto) % (20.0-45.0) Monocytes (%) (Auto) % (1.0-10.0) Eosinophils (%) (Auto) % (0.0-3.0) Basophils (%) (Auto) % (0.0-2.0) Differential Total Cells Counted 100 Neutrophils % (Manual) 86 % (45-75) Lymphocytes % (Manual) 12 % (20-45) Monocytes % (Manual) 2 % (1-10) Eosinophils % (Manual) 0 % (0-3) Basophils % (Manual) 0 % (0-2) Band Neutrophils 0 % (0-8) Platelet Estimate Decreased Platelet Morphology Normal Hypochromasia 1+ Sodium Level 139 MMOL/L (136-145) Potassium Level 3.6 MMOL/L (3.5-5.1) Chloride Level 107 MMOL/L (98-107) Carbon Dioxide Level 24 MMOL/L (21-32) Anion Gap 8 mmol/L (5-15) Blood Urea Nitrogen 7 mg/dL (7-18) Creatinine 0.6 MG/DL (0.55-1.30) Estimat Glomerular Filtration Rate > 60 mL/min (>60) Glucose Level 123 MG/DL (74-106) Calcium Level 7.3 MG/DL (8.5-10.1) Phosphorus Level 3.2 MG/DL (2.5-4.9) Magnesium Level 1.7 MG/DL (1.8-2.4) Total Bilirubin 0.5 MG/DL (0.2-1.0) Aspartate Amino Transf (AST/SGOT) 20 U/L (15-37) Alanine Aminotransferase (ALT/SGPT) 21 U/L (12-78) Alkaline Phosphatase 76 U/L (46-116) Total Protein 4.0 G/DL (6.4-8.2) Albumin 1.5 G/DL (3.4-5.0) Globulin 2.5 g/dL Albumin/Globulin Ratio 0.6 (1.0-2.7) Lactic Acid Level 2.70 mmol/L (0.4-2.0) POC Whole Blood Glucose 133 MG/DL (74-106) 124 MG/DL (74-106) Test 02/29/20 05:57 02/29/20 06:51 02/29/20 11:14 02/29/20 13:10 White Blood Count 1.7 K/UL (4.8-10.8) Red Blood Count 2.65 M/UL (4.20-5.40) Hemoglobin 7.7 G/DL (12.0-16.0) Hematocrit 22.1 % (37.0-47.0) Mean Corpuscular Volume 83 FL (80-99) Mean Corpuscular Hemoglobin 28.9 PG (27.0-31.0) Mean Corpuscular Hemoglobin Concent 34.7 G/DL (32.0-36.0) Red Cell Distribution Width 12.7 % (11.6-14.8) Platelet Count 9 K/UL (150-450) Mean Platelet Volume 13.4 FL (6.5-10.1) Neutrophils (%) (Auto) % (45.0-75.0) Lymphocytes (%) (Auto) % (20.0-45.0) Monocytes (%) (Auto) % (1.0-10.0) Eosinophils (%) (Auto) % (0.0-3.0) Basophils (%) (Auto) % (0.0-2.0) Differential Total Cells Counted 100 Neutrophils % (Manual) 50 % (45-75) Lymphocytes % (Manual) 46 % (20-45) Monocytes % (Manual) 4 % (1-10) Eosinophils % (Manual) 0 % (0-3) Basophils % (Manual) 0 % (0-2) Band Neutrophils 0 % (0-8) Platelet Estimate Decreased Platelet Morphology Normal Hypochromasia 1+ Sodium Level 140 MMOL/L (136-145) Potassium Level 3.2 MMOL/L (3.5-5.1) Chloride Level 108 MMOL/L (98-107) Carbon Dioxide Level 21 MMOL/L (21-32) Anion Gap 11 mmol/L (5-15) Blood Urea Nitrogen 6 mg/dL (7-18) Creatinine 0.5 MG/DL (0.55-1.30) Estimat Glomerular Filtration Rate > 60 mL/min (>60) Glucose Level 136 MG/DL (74-106) Calcium Level 7.0 MG/DL (8.5-10.1) Total Bilirubin 0.3 MG/DL (0.2-1.0) Aspartate Amino Transf (AST/SGOT) 21 U/L (15-37) Alanine Aminotransferase (ALT/SGPT) 17 U/L (12-78) Alkaline Phosphatase 64 U/L (46-116) Total Protein 3.8 G/DL (6.4-8.2) Albumin 1.3 G/DL (3.4-5.0) Globulin 2.5 g/dL Albumin/Globulin Ratio 0.5 (1.0-2.7) POC Whole Blood Glucose 143 MG/DL (74-106) 129 MG/DL (74-106) Prothrombin Time 13.4 SEC (9.30-11.50) Prothromb Time International Ratio 1.2 (0.9-1.1) Fibrinogen 354 mg/dL (200-400) Lactic Acid Level 4.80 mmol/L (0.4-2.0) Lactate Dehydrogenase 304 U/L (81-234) Test 02/29/20 16:23 02/29/20 23:59 03/01/20 05:45 03/01/20 08:45 POC Whole Blood Glucose 128 MG/DL (74-106) Lactic Acid Level 4.90 mmol/L (0.66-2.22) Sodium Level 137 MMOL/L (136-145) Potassium Level 3.2 MMOL/L (3.5-5.1) Chloride Level 104 MMOL/L (98-107) Carbon Dioxide Level 27 MMOL/L (21-32) Anion Gap 6 mmol/L (5-15) Blood Urea Nitrogen 4 mg/dL (7-18) Creatinine 0.5 MG/DL (0.55-1.30) Estimat Glomerular Filtration Rate > 60 mL/min (>60) Glucose Level 138 MG/DL (74-106) Calcium Level 6.9 MG/DL (8.5-10.1) Phosphorus Level 2.2 MG/DL (2.5-4.9) Magnesium Level 1.3 MG/DL (1.8-2.4) White Blood Count 1.2 K/UL (4.8-10.8) Red Blood Count 2.48 M/UL (4.20-5.40) Hemoglobin 7.3 G/DL (12.0-16.0) Hematocrit 20.7 % (37.0-47.0) Mean Corpuscular Volume 83 FL (80-99) Mean Corpuscular Hemoglobin 29.4 PG (27.0-31.0) Mean Corpuscular Hemoglobin Concent 35.3 G/DL (32.0-36.0) Red Cell Distribution Width 12.6 % (11.6-14.8) Platelet Count 45 K/UL (150-450) Mean Platelet Volume 8.3 FL (6.5-10.1) Neutrophils (%) (Auto) % (45.0-75.0) Lymphocytes (%) (Auto) % (20.0-45.0) Monocytes (%) (Auto) % (1.0-10.0) Eosinophils (%) (Auto) % (0.0-3.0) Basophils (%) (Auto) % (0.0-2.0) Differential Total Cells Counted 100 Neutrophils % (Manual) 50 % (45-75) Lymphocytes % (Manual) 43 % (20-45) Monocytes % (Manual) 1 % (1-10) Eosinophils % (Manual) 0 % (0-3) Basophils % (Manual) 0 % (0-2) Band Neutrophils 6 % (0-8) Platelet Estimate Decreased Platelet Morphology Normal Red Blood Cell Morphology Normal Test 03/01/20 11:44 03/01/20 17:40 03/01/20 23:08 03/02/20 03:15 POC Whole Blood Glucose 148 MG/DL (74-106) 118 MG/DL (74-106) White Blood Count 1.4 K/UL (4.8-10.8) Red Blood Count 2.55 M/UL (4.20-5.40) Hemoglobin 7.4 G/DL (12.0-16.0) Hematocrit 21.3 % (37.0-47.0) Mean Corpuscular Volume 83 FL (80-99) Mean Corpuscular Hemoglobin 29.1 PG (27.0-31.0) Mean Corpuscular Hemoglobin Concent 34.8 G/DL (32.0-36.0) Red Cell Distribution Width 12.4 % (11.6-14.8) Platelet Count 30 K/UL (150-450) Mean Platelet Volume 9.3 FL (6.5-10.1) Neutrophils (%) (Auto) % (45.0-75.0) Lymphocytes (%) (Auto) % (20.0-45.0) Monocytes (%) (Auto) % (1.0-10.0) Eosinophils (%) (Auto) % (0.0-3.0) Basophils (%) (Auto) % (0.0-2.0) Sodium Level 138 MMOL/L (136-145) Potassium Level 2.9 MMOL/L (3.5-5.1) Chloride Level 104 MMOL/L (98-107) Carbon Dioxide Level 29 MMOL/L (21-32) Anion Gap 5 mmol/L (5-15) Blood Urea Nitrogen 10 mg/dL (7-18) Creatinine 0.4 MG/DL (0.55-1.30) Estimat Glomerular Filtration Rate > 60 mL/min (>60) Glucose Level 176 MG/DL (74-106) Calcium Level 7.2 MG/DL (8.5-10.1) Phosphorus Level 3.8 MG/DL (2.5-4.9) Magnesium Level 1.9 MG/DL (1.8-2.4) Total Bilirubin 0.3 MG/DL (0.2-1.0) Aspartate Amino Transf (AST/SGOT) 19 U/L (15-37) Alanine Aminotransferase (ALT/SGPT) 16 U/L (12-78) Alkaline Phosphatase 86 U/L (46-116) Total Protein 3.4 G/DL (6.4-8.2) Albumin 1.1 G/DL (3.4-5.0) Globulin 2.3 g/dL Albumin/Globulin Ratio 0.5 (1.0-2.7) Test 03/02/20 05:01 POC Whole Blood Glucose 168 MG/DL (74-106) Height (Feet): 5 Height (Inches): 4.00 Weight (Pounds): 113 Objective General: NAD HEENT: nc, at Neck: supple Chest: clear breath sounds bilaterally Cardiovascular: RRR, no s3, s4 Abdomen: soft, nontender, nd, ++surgical site noted, c/d/i, healing ++ Extremities: no cce, normal range of motion Neuro: alert and oriented Gustavo Mon MD Mar 02, 2020 06:43
--- NOTE | 2020-03-02 07:46 | NUR ---
NURSE HAND-OFF REPORT: Important Events on Shift: WOUND CARE, NEW TPN HUNG Patient Status: STABLE Diet: CLEAR LIQUID DIET Pending Orders: N/A Pending Results/Labs:10/ AM LABS Pending MD notification:N/A Latest Vital Signs: Temperature 97.2 , Pulse 105 , B/P 110 /77 , Respiratory Rate 20 , O2 SAT 99 , Room Air, O2 Flow Rate 2.0 . Vital Sign Comment: STABLE EKG Rhythm: Sinus Tachycardia Rhythm change?: N MD Notified?: N - MD Response: Latest Scherer Fall Score: 20 Fall Risk: Low Risk Safety Measures: Call light Within Reach, Bed Alarm Zone 2, Side Rails Side Rails x3, Bed position Low and Locked. Fall Precautions: Yellow Socks Yellow Gown Door Sign Patient Fall Education Report given to RYANN DE LA ROSA.
--- NOTE | 2020-03-02 07:46 | NUR ---
RD ASSESSMENT & RECOMMENDATIONS SEE CARE ACTIVITY FOR COMPLETE ASSESSMENT DAILY ESTIMATED NEEDS: Needs based on GI, surgery, cancer 50.4kg 25-35 kcals/kg 8345-5843 total kcals 1-2 g protein/kg 50-100 g total protein 25-35ml/kcal mL/kg 4798-0980 total fluid mLs NUTRITION DIAGNOSIS: Altered GI fxn r/t bowel obstruction as evidenced by CT scan, last bm unknown, adm w/ distended abdomen, N/V w/ recent poor po intake, s/p ex lap, left colectomy and partial omentectomy, on CLD w/ poor intake, on TPN. CURRENT DIET:CLD PO DIET RECOMMENDATIONS: Per MD PARENTERAL NUTRITION RECOMMENDATIONS: D/AA Rate: 60 IL Rate: 9 Total Rate: 69 Volume: 1656 % Dextrose: 16 % AA: 5.4 Energy (kcals/kg): 1526 Protein (g/kg protein): 78 Nonprotein KCALS: 1264 GIR (mg CHO/kg/min): 3.2 % Fat KCALS: 28 NPC: N Ratio: 97:1 TPN Comment: TPN currently based on initial bed scale wt of 50.4kg, now currently at 74.9kg w/ P200 mattress, w/ adj wt of 62.9kg. - D16%, AA 5.4% @60ml/hr + IL 20% @9ml.hr-> total of 69ml/hr, all 3:1. - Maintain at goal rate. - GIR<5 - IL <30% ADDITIONAL RECOMMENDATIONS: 1) Monitor NPO status-> on TPN Rec recalibrated bed scale wts s/p floor transfer 2) Monitor lytes, replete as needed-> low K 3) Continue added D5 IVF while NPO to prevent hypoglycemia 4) Calibrated bedscale wt 6) W/ TPN: monitor BG, Lytes, and LFT's. 7) F/up w/ WC eval
--- NOTE | 2020-03-02 07:56 | NUR ---
NURSE NOTES: Received report from Jackie/RN, Observed patient awake, A/O x3, eating breakfast in bed, On room air, no acute distress/SOB noted at this time. PICC line on right upper arm, patent and intact. Leiva and rectal tube draining well to gravity. On pressure release mattress for skin protection. Bed in low position and locked, Call light within reach. Encouraged to use call light when needed. Bed alarm is on, side rails up x3. Will continue plan of care.
[2020-03-02 08:00] VITALS: BP 120/86
--- NOTE | 2020-03-02 09:44 | NUR ---
CASE MANAGEMENT: REVIEW SI: COLON CA . LARGE BOWEL OBSTRUCTION . HYPOKALEMIA . S/P EX LAP LEFT COLECTOMY T 95.7 HR 117 RR 20 BP 110/77 SAT 95% ROOM AIR WBC 1.4 H/H 7.4/21.[address] 30 K 2.9 IS: VITAMIN K SUBQ ONCE A WK D5 NS w/KCl 40 MEQ IVF @ Q24HR ZOSYN IV Q8HR TPN Q24HR TELEMETRY UNIT STATUS DCP: PATIENT IS FROM HOME
--- NOTE | 2020-03-02 09:49 | Nephrology Progress Note ---
Assessment/Plan Plan #Severe hypokalemia #Abdominal distention - bowel obstruction due to colonic mass- s/p resection #lactic acidosis #htn #Dehydration #HLD - s/p resection - TPN - replete lyres - monitor lactic acidic level - replete K, elvi mag - check vitamin D level - IVF- switch to D5NS + 40 kcl - replete K, mag and phos - NPO - monitor lytes - avoid nephrotoxins - gen surg eval Subjective ROS Limited/Unobtainable: No Constitutional: Reports: weakness HEENT: Denies: no symptoms, eye pain, blurred vision, tearing, double vision, ear pain, ear discharge, nose pain, nose congestion, throat pain, throat swelling, mouth pain, mouth swelling, other Genitourinary: Denies: no symptoms, burning, discharge, frequency, flank pain, hematuria, incontinence, pain, urgency, other Neurologic/Psychiatric: Denies: no symptoms, anxiety, depressed, emotional problems, headache, numbness, paresthesia, pre-existing deficit, seizure, tingling, tremors, weakness, other Subjective s/p resection CT with mets to omentum more lethargic transferred to STEP down unit started on TPN NPO Objective Objective Last 24 Hour Vital Signs Date Time Temp Pulse Resp B/P (MAP) Pulse Ox O2 Delivery O2 Flow Rate FiO2 03/02/20 09:03 103 120/86 03/02/20 09:00 Room Air 03/02/20 08:00 103 03/02/20 08:00 95.7 103 20 120/86 (97) 95 03/02/20 04:00 117 03/02/20 04:00 97.2 105 20 110/77 (88) 99 03/02/20 00:00 97.3 100 20 111/65 (80) 99 03/02/20 00:00 100 03/01/20 21:00 Room Air 03/01/20 20:12 104 113/65 03/01/20 20:00 106 03/01/20 20:00 97.2 107 20 112/71 (85) 97 03/01/20 16:00 102 03/01/20 16:00 97.9 104 24 113/61 (78) 95 03/01/20 12:00 97.3 96 20 113/70 (84) 96 03/01/20 12:00 96 03/01/20 09:58 102 126/72 Intake and Output 03/01/20 03/02/20 19:00 07:00 Intake Total 100 ml 1154 ml Output Total 1150 ml Balance 100 ml 4 ml Intake Oral 100 ml IV Total 100 ml 1054 ml Output Urine Total 850 ml Stool Total 300 ml Laboratory Tests 03/01/20 11:44: POC Whole Blood Glucose 148H 03/01/20 17:40: POC Whole Blood Glucose [Pending] 03/01/20 23:08: POC Whole Blood Glucose 118H 03/02/20 03:15: White Blood Count 1.4*L, Red Blood Count 2.55L, Hemoglobin 7.4L, Hematocrit 21.3L, Mean Corpuscular Volume 83, Mean Corpuscular Hemoglobin 29.1, Mean Corpuscular Hemoglobin Concent 34.8, Red Cell Distribution Width 12.4, Platelet Count 30L, Mean Platelet Volume 9.3, Neutrophils (%) (Auto) , Lymphocytes (%) (Auto) , Monocytes (%) (Auto) , Eosinophils (%) (Auto) , Basophils (%) (Auto) , Differential Total Cells Counted 100, Neutrophils % (Manual) 56, Lymphocytes % (Manual) 42, Monocytes % (Manual) 2, Eosinophils % (Manual) 0, Basophils % (Manual) 0, Band Neutrophils 0, Platelet Estimate DecreasedL, Platelet Morphology Normal, Hypochromasia 3+, Anisocytosis 1+, Spherocytes 1+, Sodium Level 138, Potassium Level 2.9L, Chloride Level 104, Carbon Dioxide Level 29, Anion Gap 5, Blood Urea Nitrogen 10, Creatinine 0.4L, Estimat Glomerular Filtration Rate > 60, Glucose Level 176H, Calcium Level 7.2L, Phosphorus Level 3.8, Magnesium Level 1.9, Total Bilirubin 0.3, Aspartate Amino Transf (AST/SGOT) 19, Alanine Aminotransferase (ALT/SGPT) 16, Alkaline Phosphatase 86, Total Protein 3.4L, Albumin 1.1L, Globulin 2.3, Albumin/Globulin Ratio 0.5L 03/02/20 05:01: POC Whole Blood Glucose 168H Height (Feet): 5 Height (Inches): 4.00 Weight (Pounds): 113 Yakelin Arnett M.D. Mar 02, 2020 09:49
[2020-03-02] MEDS ORDERED: NS 275ml ONE (11:42)
[2020-03-02] MEDS ORDERED: Tubing IV Secondary IV ONE (11:42)
--- NOTE | 2020-03-02 11:43 | General Progress Note ---
Subjective ROS Limited/Unobtainable: No Allergies: Coded Allergies: No Known Allergies (Unverified , 02/15/20) Objective Last 24 Hour Vital Signs Date Time Temp Pulse Resp B/P (MAP) Pulse Ox O2 Delivery O2 Flow Rate FiO2 03/02/20 09:03 103 120/86 03/02/20 09:00 Room Air 03/02/20 08:00 103 03/02/20 08:00 95.7 103 20 120/86 (97) 95 03/02/20 04:00 117 03/02/20 04:00 97.2 105 20 110/77 (88) 99 03/02/20 00:00 97.3 100 20 111/65 (80) 99 03/02/20 00:00 100 03/01/20 21:00 Room Air 03/01/20 20:12 104 113/65 03/01/20 20:00 106 03/01/20 20:00 97.2 107 20 112/71 (85) 97 03/01/20 16:00 102 03/01/20 16:00 97.9 104 24 113/61 (78) 95 03/01/20 12:00 97.3 96 20 113/70 (84) 96 03/01/20 12:00 96 Intake and Output 03/01/20 03/02/20 19:00 07:00 Intake Total 100 ml 1154 ml Output Total 1150 ml Balance 100 ml 4 ml Intake Oral 100 ml IV Total 100 ml 1054 ml Output Urine Total 850 ml Stool Total 300 ml Laboratory Tests 03/01/20 11:44: POC Whole Blood Glucose 148H 03/01/20 17:40: POC Whole Blood Glucose [Pending] 03/01/20 23:08: POC Whole Blood Glucose 118H 03/02/20 03:15: White Blood Count 1.4*L, Red Blood Count 2.55L, Hemoglobin 7.4L, Hematocrit 21.3L, Mean Corpuscular Volume 83, Mean Corpuscular Hemoglobin 29.1, Mean Corpuscular Hemoglobin Concent 34.8, Red Cell Distribution Width 12.4, Platelet Count 30L, Mean Platelet Volume 9.3, Neutrophils (%) (Auto) , Lymphocytes (%) (Auto) , Monocytes (%) (Auto) , Eosinophils (%) (Auto) , Basophils (%) (Auto) , Differential Total Cells Counted 100, Neutrophils % (Manual) 56, Lymphocytes % (Manual) 42, Monocytes % (Manual) 2, Eosinophils % (Manual) 0, Basophils % (Manual) 0, Band Neutrophils 0, Platelet Estimate DecreasedL, Platelet Morphology Normal, Hypochromasia 3+, Anisocytosis 1+, Spherocytes 1+, Sodium [place] 138, Potassium Level 2.9L, Chloride Level 104, Carbon Dioxide Level 29, Anion Gap 5, Blood Urea Nitrogen 10, Creatinine 0.4L, Estimat Glomerular Filtration Rate > 60, Glucose Level 176H, Calcium Level 7.2L, Phosphorus Level 3.8, Magnesium Level 1.9, Total Bilirubin 0.3, Aspartate Amino Transf (AST/SGOT) 19, Alanine Aminotransferase (ALT/SGPT) 16, Alkaline Phosphatase 86, Total Protein 3.4L, Albumin 1.1L, Globulin 2.3, Albumin/Globulin Ratio 0.5L 03/02/20 05:01: POC Whole Blood Glucose 168H 03/02/20 10:35: Lactic Acid Level 1.70 Height (Feet): 5 Height (Inches): 4.00 Weight (Pounds): 113 General Appearance: no apparent distress EENT: normal ENT inspection Neck: supple Cardiovascular: normal rate Respiratory/Chest: decreased breath sounds Abdomen: hypoactive bowel sounds, other - post surgical Extremities: non-tender Assessment/Plan Problem List: (1) Large bowel obstruction ICD Codes: K56.609 - Unspecified intestinal obstruction, unspecified as to partial versus complete obstruction SNOMED: 062546947 (2) Hypokalemia ICD Codes: E87.6 - Hypokalemia SNOMED: 67702264 (3) Lightheaded ICD Codes: R42 - Dizziness and giddiness SNOMED: 890056050 Status: stable Assessment/Plan: colon cancer with bowel obstruction s/p resection on TPN on clears fu surg recs Graeme Hirsch MD Mar 02, 2020 11:43
[2020-03-02 12:00] VITALS: BP 108/62
--- NOTE | 2020-03-02 12:14 | Surgery Progress Note ---
Surgery Progress Note Subjective Procedure Performed ex lap left colectomy mobilization of splenic flexure omentectomy primary anastomosis Additional Comments Patient is much more leg awake and alert today. She has visitors today which are her friends from the gym. Friend from the gym went to see her noticed that she was not their neighbors oldest in the hospital so they are here to visit. Patient seems significantly happier awake alert fully discussing with her friends. She has a few 100 cc of loose stool noted in the rectal tube. Denies any abdominal pain. tolerating clears Objective Last 24 Hour Vital Signs Date Time Temp Pulse Resp B/P (MAP) Pulse Ox O2 Delivery O2 Flow Rate FiO2 03/02/20 09:03 103 120/86 03/02/20 09:00 Room Air 03/02/20 08:00 103 03/02/20 08:00 95.7 103 20 120/86 (97) 95 03/02/20 04:00 117 03/02/20 04:00 97.2 105 20 110/77 (88) 99 03/02/20 00:00 97.3 100 20 111/65 (80) 99 03/02/20 00:00 100 03/01/20 21:00 Room Air 03/01/20 20:12 104 113/65 03/01/20 20:00 106 03/01/20 20:00 97.2 107 20 112/71 (85) 97 03/01/20 16:00 102 03/01/20 16:00 97.9 104 24 113/61 (78) 95 I&O Intake and Output 03/01/20 03/02/20 19:00 07:00 Intake Total 100 ml 1154 ml Output Total 1150 ml Balance 100 ml 4 ml Intake Oral 100 ml IV Total 100 ml 1054 ml Output Urine Total 850 ml Stool Total 300 ml Dressing: other Wound: other Cardiovascular: RSR Respiratory: decreased breath sounds Abdomen: soft, distended, non-tender, present bowel sounds Extremities: no edema, no tenderness, no cyanosis Laboratory Tests Test 03/01/20 17:40 03/01/20 23:08 03/02/20 03:15 03/02/20 05:01 POC Whole Blood Glucose Pending 118 MG/DL (74-106) H 168 MG/DL (74-106) H White Blood Count 1.4 K/UL (4.8-10.8) *L Red Blood Count 2.55 M/UL (4.20-5.40) L Hemoglobin 7.4 G/DL (12.0-16.0) L Hematocrit 21.3 % (37.0-47.0) L Mean Corpuscular Volume 83 FL (80-99) Mean Corpuscular Hemoglobin 29.1 PG (27.0-31.0) Mean Corpuscular Hemoglobin Concent 34.8 G/DL (32.0-36.0) Red Cell Distribution Width 12.4 % (11.6-14.8) Platelet Count 30 K/UL (150-450) L Mean Platelet Volume 9.3 FL (6.5-10.1) Neutrophils (%) (Auto) % (45.0-75.0) Lymphocytes (%) (Auto) % (20.0-45.0) Monocytes (%) (Auto) % (1.0-10.0) Eosinophils (%) (Auto) % (0.0-3.0) Basophils (%) (Auto) % (0.0-2.0) Differential Total Cells Counted 100 Neutrophils % (Manual) 56 % (45-75) Lymphocytes % (Manual) 42 % (20-45) Monocytes % (Manual) 2 % (1-10) Eosinophils % (Manual) 0 % (0-3) Basophils % (Manual) 0 % (0-2) Band Neutrophils 0 % (0-8) Platelet Estimate Decreased L Platelet Morphology Normal Hypochromasia 3+ Anisocytosis 1+ Spherocytes 1+ Sodium Level 138 MMOL/L (136-145) Potassium Level 2.9 MMOL/L (3.5-5.1) L Chloride Level 104 MMOL/L (98-107) Carbon Dioxide Level 29 MMOL/L (21-32) Anion Gap 5 mmol/L (5-15) Blood Urea Nitrogen 10 mg/dL (7-18) Creatinine 0.4 MG/DL (0.55-1.30) L Estimat Glomerular Filtration Rate > 60 mL/min (>60) Glucose Level 176 MG/DL (74-106) H Calcium Level 7.2 MG/DL (8.5-10.1) L Phosphorus Level 3.8 MG/DL (2.5-4.9) Magnesium Level 1.9 MG/DL (1.8-2.4) Total Bilirubin 0.3 MG/DL (0.2-1.0) Aspartate Amino Transf (AST/SGOT) 19 U/L (15-37) Alanine Aminotransferase (ALT/SGPT) 16 U/L (12-78) Alkaline Phosphatase 86 U/L (46-116) Total Protein 3.4 G/DL (6.4-8.2) L Albumin 1.1 G/DL (3.4-5.0) L Globulin 2.3 g/dL Albumin/Globulin Ratio 0.5 (1.0-2.7) L Test 03/02/20 10:35 Lactic Acid Level 1.70 mmol/L (0.4-2.0) Plan Problems: (1) Lightheaded (2) Hypokalemia (3) Large bowel obstruction Assessment & Plan: 64-year-old female with abdominal distention potential large bowel obstruction. Afebrile, hemodynamic stable, labs noted no leukocytosis no pain no bleeding. No prior abdominal surgeries. Nausea and emesis clear liquid. Decreased appetite. Cannot recall last flatus or BM. CT as below. No direct mass or abnormality identified but there is absolutely identifiable transition at the rectosigmoid area with proximal dilatation. A colonoscopy is warranted but though would be with definitive risk of potential perforation. GI consult pending. Replace electrolytes. N.p.o. IV fluids will await scope for findings. Conceivably may require surgical intervention. Thank you for let me participate in patient's care will follow with recommendations GI consider for scope 02/17 will be available for surgery in case of emergency high risk for perforation or complication and understands. but strongly recommend scope prior to surgery for etiology purposes. s/p ex lap. see op report recovering okay to downgrade to tele npo okay for ice chips iv fluids abx tomas to stay in until ambulatory heparin petechia plt down hold heparin scds cont abx trend labs trial liquid diet ?air leak but afebrile, hd stable, no wbc, shift improved. needs K replacement plt trending down petechia CT pending electrolytes improved CT with mets to omentum likely was obstructed for significant period of time prior to surgery and tumor with mets. liver okay but post op she is declining. unfortunately prognosis is guarded. asked her if she wanted me to call anyone and declined ct noted. fluid and gas in colon and rectum distal to anastomosis. possible occult leak? but no fevers, no wbc, and exam without tenderness. rectal tube ordered liquid scant output tpn discussed with paul. pending labs. recommended for hospice discussed her condition and decline. unsafe for surgical intervention at this time given plt/labs/decline asked if she wanted me to discuss or call family / friends and declined There are several circumscribed low-density nonenhancing cysts noted in the liver. The spleen is homogeneous. Gallbladder is without sludge or stone and there is no wall thickening. The pancreas is unremarkable. Adrenals are normal in morphology. The kidneys are normal in size, shape and axis. Small bowel loops are nondistended. The dominant abnormality is severe colonic distention containing air-fluid levels and stool debris. Dilated colon extends down to the rectosigmoid junction where there is an apparent transition. The rectal vault is nondistended with only a small amount of stool. No definite discernible mass is detected there is There is no free fluid or free air. No pathologic adenopathy demonstrated. Bladder is empty. There is no suspicious superficial soft tissue or osseous abnormality. IMPRESSION: SEVERE COLONIC DISTENTION WITH AIR-FLUID LEVELS AND STOOL DEBRIS. THERE IS APPARENT TRANSITION AT THE RECTOSIGMOID JUNCTION WITH A RELATIVELY EMPTY RECTAL VAULT WITH ONLY SMALL AMOUNT OF STOOL. NO DEFINITE DISCERNIBLE MASS AT THE TRANSITION POINT. RECOMMEND GI CONSULTATION AND CONSIDER COLONOSCOPY. (4) Colon cancer Swapnil Brito Mar 02, 2020 12:14
--- NOTE | 2020-03-02 15:30 | NUR ---
NURSE NOTES: PATIENT ASLEEP, APPEARS CALM AND COMFORTABLE WITH NO S/SX OF PAIN. TPN AND FLUIDS RUNNING PRESCRIBED.
--- NOTE | 2020-03-02 15:34 | Cardiac Electrophysiology PN ---
Assessment/Plan Assessment/Plan 1. Nonsustained VT 5 beats and Palpitations. No recurrence after hypokalemia corrected. Echo EF 55%. On Metoprolol 25 po bid 2. Sinus tach and anemia better after Metoprolol 25 po bid and after PRBC 3. Bowel obstruction. S/P ex lap, left colectomy, mobilization of splenic flexure by Dr Brito, CT abdomen Free fluid seen in the abdomen and pelvis with multiple fluid- filled loops of small and large bowel which may be associated with ileus or enteritis without focal transition point. Lung bases appear worse from the prior exam. Increased free fluid within the abdomen. FU Gi and surgery. On Clear liquid diet 4. Hypokalemia replaced with iv K and Mg. 5. PVCs and dizziness 6. Anemia with Hb 6.9. s/p PRBC 02/26/20 again. S/P CT abdomen and pelvis DW RN Subjective Subjective No more VT since the 5 beats of VT on 02/21/20. In NSR on Lopressor 25 bid.Received PRBC. Not eating much Objective Last 24 Hour Vital Signs Date Time Temp Pulse Resp B/P (MAP) Pulse Ox O2 Delivery O2 Flow Rate FiO2 03/02/20 12:00 99 03/02/20 12:00 96.1 98 21 108/62 (77) 97 03/02/20 09:03 103 120/86 03/02/20 09:00 Room Air 03/02/20 08:00 103 03/02/20 08:00 95.7 103 20 120/86 (97) 95 03/02/20 04:00 117 03/02/20 04:00 97.2 105 20 110/77 (88) 99 03/02/20 00:00 97.3 100 20 111/65 (80) 99 03/02/20 00:00 100 03/01/20 21:00 Room Air 03/01/20 20:12 104 113/65 03/01/20 20:00 106 03/01/20 20:00 97.2 107 20 112/71 (85) 97 03/01/20 16:00 102 03/01/20 16:00 97.9 104 24 113/61 (78) 95 Intake and Output 03/01/20 03/02/20 19:00 07:00 Intake Total 100 ml 1154 ml Output Total 1150 ml Balance 100 ml 4 ml Intake Oral 100 ml IV Total 100 ml 1054 ml Output Urine Total 850 ml Stool Total 300 ml Laboratory Tests Test 03/01/20 17:40 03/01/20 23:08 03/02/20 03:15 03/02/20 05:01 POC Whole Blood Glucose Pending 118 MG/DL (74-106) H 168 MG/DL (74-106) H White Blood Count 1.4 K/UL (4.8-10.8) *L Red Blood Count 2.55 M/UL (4.20-5.40) L Hemoglobin 7.4 G/DL (12.0-16.0) L Hematocrit 21.3 % (37.0-47.0) L Mean Corpuscular Volume 83 FL (80-99) Mean Corpuscular Hemoglobin 29.1 PG (27.0-31.0) Mean Corpuscular Hemoglobin Concent 34.8 G/DL (32.0-36.0) Red Cell Distribution Width 12.4 % (11.6-14.8) Platelet Count 30 K/UL (150-450) L Mean Platelet Volume 9.3 FL (6.5-10.1) Neutrophils (%) (Auto) % (45.0-75.0) Lymphocytes (%) (Auto) % (20.0-45.0) Monocytes (%) (Auto) % (1.0-10.0) Eosinophils (%) (Auto) % (0.0-3.0) Basophils (%) (Auto) % (0.0-2.0) Differential Total Cells Counted 100 Neutrophils % (Manual) 56 % (45-75) Lymphocytes % (Manual) 42 % (20-45) Monocytes % (Manual) 2 % (1-10) Eosinophils % (Manual) 0 % (0-3) Basophils % (Manual) 0 % (0-2) Band Neutrophils 0 % (0-8) Platelet Estimate Decreased L Platelet Morphology Normal Hypochromasia 3+ Anisocytosis 1+ Spherocytes 1+ Sodium Level 138 MMOL/L (136-145) Potassium Level 2.9 MMOL/L (3.5-5.1) L Chloride Level 104 MMOL/L (98-107) Carbon Dioxide Level 29 MMOL/L (21-32) Anion Gap 5 mmol/L (5-15) Blood Urea Nitrogen 10 mg/dL (7-18) Creatinine 0.4 MG/DL (0.55-1.30) L Estimat Glomerular Filtration Rate > 60 mL/min (>60) Glucose Level 176 MG/DL (74-106) H Calcium Level 7.2 MG/DL (8.5-10.1) L Phosphorus Level 3.8 MG/DL (2.5-4.9) Magnesium Level 1.9 MG/DL (1.8-2.4) Total Bilirubin 0.3 MG/DL (0.2-1.0) Aspartate Amino Transf (AST/SGOT) 19 U/L (15-37) Alanine Aminotransferase (ALT/SGPT) 16 U/L (12-78) Alkaline Phosphatase 86 U/L (46-116) Total Protein 3.4 G/DL (6.4-8.2) L Albumin 1.1 G/DL (3.4-5.0) L Globulin 2.3 g/dL Albumin/Globulin Ratio 0.5 (1.0-2.7) L Test 03/02/20 10:35 03/02/20 12:22 Lactic Acid Level 1.70 mmol/L (0.4-2.0) POC Whole Blood Glucose Pending Objective HEENT: No JVD Cardiovascular: RSR. No GRM Respiratory: clear Abdomen: soft, non-tender. Jessica intact with no drain Extremities: no edema, no tenderness, no cyanosis Peter Quintana MD Mar 02, 2020 15:34
[2020-03-02 16:00] VITALS: BP 66/62
--- NOTE | 2020-03-02 19:40 | NUR ---
NURSE HAND-OFF REPORT: Important Events on Shift:NA Patient Status: Stable Diet: Clear liquid Pending Orders: Transfer to Tele Pending Results/Labs:Morning labs Pending MD notification:NA Latest Vital Signs: Temperature 96.8 , Pulse 107 , B/P 66 /62 , Respiratory Rate 21 , O2 SAT 97 , Room Air, O2 Flow Rate 2.0 . Vital Sign Comment: Stable EKG Rhythm: Sinus Tachycardia Rhythm change?: N MD Notified?: N - MD Response: Latest Scherer Fall Score: 20 Fall Risk: Low Risk Safety Measures: Call light Within Reach, Bed Alarm Zone 2, Side Rails Side Rails x3, Bed position Low and Locked. Fall Precautions: Yellow Socks Yellow Gown Door Sign Patient Fall Education Report given to Gretel/RN.
--- NOTE | 2020-03-02 19:42 | NUR ---
NURSE NOTES: Received pt and report from RYANN Farrar. Observed pt resting in bed with both eyes closed; arousable to voice. Pt is A/Ox2. Pt has a transfer order to Telemetry RM 211-[address] Arnett. counselling psychologist is in placed; pt is NSR (HR 100 bpm). Pt has a LADARIUS PICC line double lumen; intact, asymptomatic, and patent; one lumen running D5 NS w/KCL 40mEq @ 31cc/hr and second lumen running TPN @ 69cc/hr. Pt has a Leiva inserted for urinary retention and rectal tube; both draining well to gravity. Bed is in the lowest position and locked. Call light and bedside table is within reach. No signs/symptoms of acute distress noted. Will continue plan of care until pt gets transfer to telemetry.
[2020-03-02 20:00] VITALS: BP 102/66
[2020-03-02] MEDS: D5NS w/KCl 40mEq 1000ml 1,000 ML IV SCH (20:00)
--- NOTE | 2020-03-02 20:05 | NUR ---
TRANSFER TO FLOOR: Patient transferred to 211-2, per Dr. Arnett. Report given to RYANN Vidales. Belongings list checked and signed. Medications given to RYANN Vidales. No signs/symptoms of acute distress noted. Pt is in stable condition. Orders transferred.
--- NOTE | 2020-03-02 20:15 | NUR ---
NURSE NOTES: Received patient from [facility], report was given by RYANN Majano. Patient is awake, alert and oriented x 1-2. half section ironer is in place, shows sinus rhythm with no chest pain reported. With double lumen PICC line, running TPN @ 69 cc/hour and D5 NS + 40 meqs kcl @ 31 cc/hour. Patient is on fall and aspiration precaution. Safety measures are in place, bed in lowest and locked position, side rails up x 2. Will continue plan of care,
[2020-03-02] MEDS: AMINO ACIDS IV SCH ×2 (20:40)
[2020-03-02] MEDS: DEXTROSE IV SCH ×2 (20:40)
[2020-03-02] MEDS: FAT EMULSION IV SCH ×2 (20:40)
[2020-03-02] MEDS: Dyna-Hex 2% Top Sol 2oz TOPIC SCH (20:52)
[2020-03-03] VITALS: BP 104/66
[2020-03-03] MEDS: NovoLOG Insulin Flexpen SUBQ SCH ×4 (00:14→18:10)
--- NOTE | 2020-03-03 00:45 | NUR ---
NURSE NOTES: Report given to RYANN Joseph. Patient is asleep, drowsy and still lethargic. Sinus rhythm on the monitor, on clear liquid diet. Plan of care endorsed.
[2020-03-03 04:00] VITALS: BP 117/61
[2020-03-03] MEDS: Piperacillin/Tazobactam 3.375 GM in NS 110 ML IVPB SCH ×3 (05:50→22:01)
--- NOTE | 2020-03-03 07:05 | Hematology/Onc Progress Note ---
Assessment/Plan Assessment/Plan Assessment and Recs # Stage IV adenocarcinoma of the colon - biopsy report shows pT3, N2b, M1, lesion with omental metastasis, tumor markers reviewed, just cea 8.5, as well as ct a/p reviewed --> operative report reviewed, per surg, surg ws 02/21/2020 --> currently functional status very poor, at this time hold off further rx in re to chemo --> tumor markers ordered, reviewed, only cea elev --> Ct a/p reviewed, no sig mets on scan, but does have omental mets, does show pneumoperitoneum --> if functional status improves consider single agent PO drug xeloda and if improves further FOLFOX (combo) # Thrombocytopenia - potential causes multifactorial, evaluate liver and viral etiologies to begin, severe and acute, did get heparin --> lactic acid 2.6, r/o sepsis --> Hep panel and HIV neg ==> hit ab negative --> ct a/p reviewed --> Peripheral smear ordered to evaluate for blasts /schistocytes -->does not show any --> abx and other meds have been reviewed --> transfuse to keep plt >20k --> meds reviewed --> plt 212-->30-->18->8 --> DIC panel has been ordered--> elev lactic acid 4.8 --> ABX zosyn # Large bowel obstruction --> due to above cancer --> s/p surg # Hypokalemia --> replete with k # PALMER --> hypovolemic, now improved # Dvt ppx scds The timing of this note does not necessarily reflect the time of the patient was seen. Greatly appreciate consultation. Subjective HEENT: Denies: no symptoms, eye pain, blurred vision, tearing, double vision, ear pain, ear discharge, nose pain, nose congestion, throat pain, throat swelling, mouth pain, mouth swelling, other Cardiovascular: Denies: no symptoms, chest pain, edema, irregular heart rate, lightheadedness, palpitations, syncope, other Respiratory: Denies: no symptoms, cough, shortness of breath, SOB with excertion, SOB at rest, sputum, wheezing, other Gastrointestinal/Abdominal: Denies: no symptoms, abdomen distended, abdominal pain, black stools, tarry stools, blood in stool, constipated, diarrhea, difficulty swallowing, nausea, poor appetite, poor fluid intake, rectal bleeding, vomiting, other Genitourinary: Denies: no symptoms, burning, discharge, frequency, flank pain, hematuria, incontinence, pain, urgency, other Neurologic/Psychiatric: Denies: no symptoms, anxiety, depressed, emotional problems, headache, numbness, paresthesia, pre-existing deficit, seizure, tingling, tremors, weakness, other Endocrine: Denies: no symptoms, excessive sweating, flushing, intolerance to cold, intolerance to heat, increased hunger, increased thirst, increased urine, unexplained weight gain, unexplained weight loss, other Hematologic/Lymphatic: Denies: no symptoms, anemia, easy bleeding, easy bruising, adenopathy, other Allergies: Coded Allergies: No Known Allergies (Unverified , 02/15/20) Subjective 02/28 asleep no bleeding, pending tumor markers, with decreased po intake 03/01 more awake dw RN at bedside this am, lactic acid remains elev, start on zosyn stat 03/02 is calm, comfortable, labs noted, tumor markers reviewed, no bm 03/03 labs reviewed, not eating much, imaging noted, new path results noted Objective Objective Current Medications Medications (Trade) Dose Ordered Sig/Fozia Route PRN Reason Start Time Stop Time Status Last Admin Dose Admin Acetaminophen (Tylenol) 650 mg Q6H PRN ORAL Mild Pain (Pain Scale 1-3) 02/18/20 17:15 03/19/20 17:14 Chlorhexidine Gluconate (Gail-Hex 2%) 1 applic DAILY@1999 TOPIC 02/25/20 20:00 05/25/20 19:59 03/02/20 20:52 Dextrose 1,000 ml @ 0 mls/hr Q24H PRN IV PN interrupted or unavailable 02/29/20 20:00 03/30/20 19:59 Dextrose (Dextrose 50%) 25 ml Q30M PRN IV Hypoglycemia 03/01/20 23:59 05/30/20 23:58 Dextrose (Dextrose 50%) 50 ml Q30M PRN IV Hypoglycemia 02/29/20 23:59 05/29/20 23:58 Dextrose/ Electrolytes 1,000 ml @ 31 mls/hr Q24H IV 02/29/20 20:00 03/30/20 19:59 02/29/20 20:22 Diphenhydramine HCl (Benadryl) 12.5 mg Q6H PRN IVP Itching/Pruritis 02/18/20 17:15 03/19/20 17:14 Fat Emulsion Intravenous 216 ml/Amino Acids/ Electrolytes/ Dextrose 1,656 ml @ 69 mls/hr Q24H IV 02/29/20 20:00 03/30/20 19:59 03/02/20 20:40 Insulin Aspart (NovoLOG) Q6HR SUBQ 03/01/20 00:00 05/30/20 00:00 03/03/20 00:14 Meclizine HCl (Antivert) 25 mg TID PRN ORAL for dizziness 02/20/20 20:30 03/21/20 20:29 Metoprolol Tartrate (Lopressor) 25 mg Q12HR ORAL 02/24/20 21:00 05/24/20 20:59 03/02/20 21:02 Ondansetron HCl (Zofran) 4 mg Q6H PRN IVP Nausea & Vomiting 02/18/20 17:15 03/19/20 17:14 Phytonadione (Vitamin K) 10 mg ONCE A WEEK SUBQ 03/07/20 09:00 06/05/20 08:59 Piperacillin Sod/ Tazobactam Sod 3.375 gm/Sodium Chloride 110 ml @ 27.5 mls/hr EVERY 8 HOURS IVPB 03/01/20 14:00 03/06/20 13:59 03/03/20 05:50 Promethazine HCl 50 mg/Sodium Chloride 111 ml @ 222 mls/hr Q6H PRN IVPB for dizziness 02/20/20 20:45 03/21/20 20:44 02/20/20 21:42 Last 24 Hour Vital Signs Date Time Temp Pulse Resp B/P (MAP) Pulse Ox O2 Delivery O2 Flow Rate FiO2 03/03/20 04:00 97.6 98 19 117/61 (79) 94 03/03/20 04:00 97 03/03/20 00:00 97.4 82 19 104/66 (79) 96 03/03/20 00:00 95 03/02/20 21:02 98 109/67 03/02/20 21:00 Room Air 03/02/20 20:00 97.0 100 20 102/66 (78) 96 03/02/20 20:00 100 03/02/20 16:00 104 03/02/20 16:00 96.8 107 21 66/62 (63) 97 03/02/20 12:00 99 03/02/20 12:00 96.1 98 21 108/62 (77) 97 03/02/20 09:03 103 120/86 03/02/20 09:00 Room Air 03/02/20 08:00 103 03/02/20 08:00 95.7 103 20 120/86 (97) 95 03/02/20 04:00 117 03/02/20 04:00 97.2 105 20 110/77 (88) 99 03/02/20 00:00 97.3 100 20 111/65 (80) 99 03/02/20 00:00 100 03/01/20 21:00 Room Air 03/01/20 20:12 104 113/65 03/01/20 20:00 106 03/01/20 20:00 97.2 107 20 112/71 (85) 97 03/01/20 16:00 102 03/01/20 16:00 97.9 104 24 113/61 (78) 95 03/01/20 12:00 97.3 96 20 113/70 (84) 96 03/01/20 12:00 96 03/01/20 09:58 102 126/72 03/01/20 09:00 Room Air 03/01/20 08:30 97.3 102 15 127/72 (90) 96 03/01/20 08:00 103 Intake and Output 03/02/20 03/03/20 19:00 07:00 Intake Total 100 ml Output Total 950 ml Balance -850 ml Intake Oral 100 ml Output Urine Total 600 ml Stool Total 350 ml Labs Test 02/29/20 11:14 02/29/20 13:10 02/29/20 16:23 02/29/20 23:59 POC Whole Blood Glucose 129 MG/DL (74-106) 128 MG/DL (74-106) Haptoglobin 232 mg/dL (37-355) Prothrombin Time 13.4 SEC (9.30-11.50) Prothromb Time International Ratio 1.2 (0.9-1.1) Fibrinogen 354 mg/dL (200-400) Fibrin Degradation Products, Quant 5 ug/mL (<5) Lactic Acid Level 4.80 mmol/L (0.4-2.0) 4.90 mmol/L (0.66-2.22) Lactate Dehydrogenase 304 U/L (81-234) Test 03/01/20 05:45 03/01/20 08:45 03/01/20 11:44 03/01/20 17:40 Sodium Level 137 MMOL/L (136-145) Potassium Level 3.2 MMOL/L (3.5-5.1) Chloride Level 104 MMOL/L (98-107) Carbon Dioxide Level 27 MMOL/L (21-32) Anion Gap 6 mmol/L (5-15) Blood Urea Nitrogen 4 mg/dL (7-18) Creatinine 0.5 MG/DL (0.55-1.30) Estimat Glomerular Filtration Rate > 60 mL/min (>60) Glucose Level 138 MG/DL (74-106) Calcium Level 6.9 MG/DL (8.5-10.1) Phosphorus Level 2.2 MG/DL (2.5-4.9) Magnesium Level 1.3 MG/DL (1.8-2.4) White Blood Count 1.2 K/UL (4.8-10.8) Red Blood Count 2.48 M/UL (4.20-5.40) Hemoglobin 7.3 G/DL (12.0-16.0) Hematocrit 20.7 % (37.0-47.0) Mean Corpuscular Volume 83 FL (80-99) Mean Corpuscular Hemoglobin 29.4 PG (27.0-31.0) Mean Corpuscular Hemoglobin Concent 35.3 G/DL (32.0-36.0) Red Cell Distribution Width 12.6 % (11.6-14.8) Platelet Count 45 K/UL (150-450) Mean Platelet Volume 8.3 FL (6.5-10.1) Neutrophils (%) (Auto) % (45.0-75.0) Lymphocytes (%) (Auto) % (20.0-45.0) Monocytes (%) (Auto) % (1.0-10.0) Eosinophils (%) (Auto) % (0.0-3.0) Basophils (%) (Auto) % (0.0-2.0) Differential Total Cells Counted 100 Neutrophils % (Manual) 50 % (45-75) Lymphocytes % (Manual) 43 % (20-45) Monocytes % (Manual) 1 % (1-10) Eosinophils % (Manual) 0 % (0-3) Basophils % (Manual) 0 % (0-2) Band Neutrophils 6 % (0-8) Platelet Estimate Decreased Platelet Morphology Normal Red Blood Cell Morphology Normal POC Whole Blood Glucose 148 MG/DL (74-106) Test 03/01/20 23:08 03/02/20 03:15 03/02/20 05:01 03/02/20 10:35 POC Whole Blood Glucose 118 MG/DL (74-106) 168 MG/DL (74-106) White Blood Count 1.4 K/UL (4.8-10.8) Red Blood Count 2.55 M/UL (4.20-5.40) Hemoglobin 7.4 G/DL (12.0-16.0) Hematocrit 21.3 % (37.0-47.0) Mean Corpuscular Volume 83 FL (80-99) Mean Corpuscular Hemoglobin 29.1 PG (27.0-31.0) Mean Corpuscular Hemoglobin Concent 34.8 G/DL (32.0-36.0) Red Cell Distribution Width 12.4 % (11.6-14.8) Platelet Count 30 K/UL (150-450) Mean Platelet Volume 9.3 FL (6.5-10.1) Neutrophils (%) (Auto) % (45.0-75.0) Lymphocytes (%) (Auto) % (20.0-45.0) Monocytes (%) (Auto) % (1.0-10.0) Eosinophils (%) (Auto) % (0.0-3.0) Basophils (%) (Auto) % (0.0-2.0) Differential Total Cells Counted 100 Neutrophils % (Manual) 56 % (45-75) Lymphocytes % (Manual) 42 % (20-45) Monocytes % (Manual) 2 % (1-10) Eosinophils % (Manual) 0 % (0-3) Basophils % (Manual) 0 % (0-2) Band Neutrophils 0 % (0-8) Platelet Estimate Decreased Platelet Morphology Normal Hypochromasia 3+ Anisocytosis 1+ Spherocytes 1+ Sodium Level 138 MMOL/L (136-145) Potassium Level 2.9 MMOL/L (3.5-5.1) Chloride Level 104 MMOL/L (98-107) Carbon Dioxide Level 29 MMOL/L (21-32) Anion Gap 5 mmol/L (5-15) Blood Urea Nitrogen 10 mg/dL (7-18) Creatinine 0.4 MG/DL (0.55-1.30) Estimat Glomerular Filtration Rate > 60 mL/min (>60) Glucose Level 176 MG/DL (74-106) Calcium Level 7.2 MG/DL (8.5-10.1) Phosphorus Level 3.8 MG/DL (2.5-4.9) Magnesium Level 1.9 MG/DL (1.8-2.4) Total Bilirubin 0.3 MG/DL (0.2-1.0) Aspartate Amino Transf (AST/SGOT) 19 U/L (15-37) Alanine Aminotransferase (ALT/SGPT) 16 U/L (12-78) Alkaline Phosphatase 86 U/L (46-116) Total Protein 3.4 G/DL (6.4-8.2) Albumin 1.1 G/DL (3.4-5.0) Globulin 2.3 g/dL Albumin/Globulin Ratio 0.5 (1.0-2.7) Lactic Acid Level 1.70 mmol/L (0.4-2.0) Test 03/02/20 12:22 03/02/20 17:02 03/03/20 00:08 POC Whole Blood Glucose 135 MG/DL (74-106) 150 MG/DL (74-106) Height (Feet): 5 Height (Inches): 4.00 Weight (Pounds): 113 Objective General: NAD HEENT: nc, at Neck: supple Chest: clear breath sounds bilaterally Cardiovascular: RRR, no s3, s4 Abdomen: soft, nontender, nd, ++surgical site noted, c/d/i, healing ++ Extremities: no cce, normal range of motion Neuro: alert and oriented Gustavo Mon MD Mar 03, 2020 07:05
--- NOTE | 2020-03-03 07:20 | NUR ---
NURSE HAND-OFF REPORT: Important Events on Shift:[Zosyn given, TPN given] Patient Status: [Stable alert and oriented x1 to 2] Diet: [Clear liquid, TPN] Pending Orders: [] Pending Results/Labs:[] Pending MD notification:[] Latest Vital Signs: Temperature 97.6 , Pulse 98 , B/P 117 /61 , Respiratory Rate 19 , O2 SAT 94 , Room Air, O2 Flow Rate 2.0 . Vital Sign Comment: [] EKG Rhythm: Sinus Rhythm Rhythm change?: N MD Notified?: N - MD Response: Latest Scherer Fall Score: 20 Fall Risk: Low Risk Safety Measures: Call light Within Reach, Bed Alarm Zone 2, Side Rails Side Rails x3, Bed position Low and Locked. Fall Precautions: Yellow Socks Yellow Gown Door Sign Patient Fall Education Report given to [RYANN Benito].
[2020-03-03 07:37] LABS: HEMATOCRIT 19.4 % (37.0-47.0); MEAN CORPUSCULAR VOLUME 83 FL (80-99); PLATELET COUNT 21 K/UL (150-450); RED BLOOD COUNT 2.32 M/UL (4.20-5.40); RED CELL DISTRIBUTION WIDTH 12.8 % (11.6-14.8)
[2020-03-03 07:44] LABS: ALANINE AMINOTRANSFERASE 15 U/L (12-78); ALBUMIN 1.1 G/DL (3.4-5.0); ALBUMIN/GLOBULIN RATIO 0.4 (1.0-2.7); ALKALINE PHOSPHATASE 93 U/L (46-116); ANION GAP 6 mmol/L (5-15); ASPARTATE AMINO TRANSFERASE 18 U/L (15-37); BILIRUBIN,TOTAL 0.2 MG/DL (0.2-1.0); BLOOD UREA NITROGEN 15 mg/dL (7-18); CALCIUM 7.5 MG/DL (8.5-10.1); CARBON DIOXIDE 30 MMOL/L (21-32); CHLORIDE 107 MMOL/L (98-107); CREATININE 0.4 MG/DL (0.55-1.30); PHOSPHORUS 2.6 MG/DL (2.5-4.9); POTASSIUM 3.1 MMOL/L (3.5-5.1); SODIUM 143 MMOL/L (136-145)
[2020-03-03 07:45] LABS: HEMOGLOBIN 6.7 G/DL (12.0-16.0)
--- NOTE | 2020-03-03 07:48 | NUR ---
NURSE NOTES: Pt received from Opal GARZON. Pt in bed with HOB at 30 degrees. Pt lethargic, awake but not responding verbally. TPN KCL and Zosyn running. Lab called, 2 critical lab values re WBC and HGB, both reported to Dr. Mon. Bed low and locked call light within reach. Other than lethargy no pain or distress noted.
[2020-03-03 08:00] VITALS: BP 107/54
--- NOTE | 2020-03-03 09:19 | Nephrology Progress Note ---
Assessment/Plan Plan #Severe hypokalemia #Abdominal distention - bowel obstruction due to colonic mass- s/p resection #lactic acidosis #htn #Dehydration #HLD - s/p resection - TPN - replete lyres - monitor lactic acidic level - replete K, elvi mag - check vitamin D level - IVF- switch to D5NS + 40 kcl - replete K, mag and phos - NPO - monitor lytes - avoid nephrotoxins - gen surg eval Subjective ROS Limited/Unobtainable: No Constitutional: Reports: weakness HEENT: Denies: no symptoms, eye pain, blurred vision, tearing, double vision, ear pain, ear discharge, nose pain, nose congestion, throat pain, throat swelling, mouth pain, mouth swelling, other Genitourinary: Denies: no symptoms, burning, discharge, frequency, flank pain, hematuria, incontinence, pain, urgency, other Subjective s/p resection CT with mets to omentum more lethargic transferred to STEP down unit started on TPN NPO Objective Objective Last 24 Hour Vital Signs Date Time Temp Pulse Resp B/P (MAP) Pulse Ox O2 Delivery O2 Flow Rate FiO2 03/03/20 08:00 97 03/03/20 08:00 97.9 99 18 107/54 (71) 96 03/03/20 04:00 97.6 98 19 117/61 (79) 94 03/03/20 04:00 97 03/03/20 00:00 97.4 82 19 104/66 (79) 96 03/03/20 00:00 95 03/02/20 21:02 98 109/67 03/02/20 21:00 Room Air 03/02/20 20:00 97.0 100 20 102/66 (78) 96 03/02/20 20:00 100 03/02/20 16:00 104 03/02/20 16:00 96.8 107 21 66/62 (63) 97 03/02/20 12:00 99 03/02/20 12:00 96.1 98 21 108/62 (77) 97 Intake and Output 03/02/20 03/03/20 19:00 07:00 Intake Total 100 ml 100 ml Output Total 950 ml 900 ml Balance -850 ml -800 ml Intake Oral 100 ml 100 ml Output Urine Total 600 ml 600 ml Stool Total 350 ml 300 ml Laboratory Tests 03/02/20 10:35: Lactic Acid Level 1.70 03/02/20 12:22: POC Whole Blood Glucose [Pending] 03/02/20 17:02: POC Whole Blood Glucose 135H 03/03/20 00:08: POC Whole Blood Glucose 150H 03/03/20 05:00: White Blood Count 2.0*L, Red Blood Count 2.32L, Hemoglobin 6.7*L, Hematocrit 19.4L, Mean Corpuscular Volume 83, Mean Corpuscular Hemoglobin 29.0, Mean Corpuscular Hemoglobin Concent 34.8, Red Cell Distribution Width 12.8, Platelet Count 21L, Mean Platelet Volume 10.9H, Neutrophils (%) (Auto) , Lymphocytes (%) (Auto) , Monocytes (%) (Auto) , Eosinophils (%) (Auto) , Basophils (%) (Auto) , Neutrophils % (Manual) [Pending], Lymphocytes % (Manual) [Pending], Platelet Estimate [Pending], Platelet Morphology [Pending], Sodium Level 143, Potassium Level 3.1L, Chloride Level 107, Carbon Dioxide Level 30, Anion Gap 6, Blood Urea Nitrogen 15, Creatinine 0.4L, Estimat Glomerular Filtration Rate > 60, Glucose Level 129H, Calcium Level 7.5L, Phosphorus Level 2.6, Magnesium Level 1.6L, Total Bilirubin 0.2, Aspartate Amino Transf (AST/SGOT) 18, Alanine Am inotransferase (ALT/SGPT) 15, Alkaline Phosphatase 93, Total Protein 3.9L, Albumin 1.1L, Globulin 2.8, Albumin/Globulin Ratio 0.4L Height (Feet): 5 Height (Inches): 4.00 Weight (Pounds): 113 Yakelin Arnett M.D. Mar 03, 2020 09:19
--- NOTE | 2020-03-03 09:43 | General Progress Note ---
Subjective ROS Limited/Unobtainable: Yes Allergies: Coded Allergies: No Known Allergies (Unverified , 02/15/20) Objective Last 24 Hour Vital Signs Date Time Temp Pulse Resp B/P (MAP) Pulse Ox O2 Delivery O2 Flow Rate FiO2 03/03/20 08:00 97 03/03/20 08:00 97.9 99 18 107/54 (71) 96 03/03/20 04:00 97.6 98 19 117/61 (79) 94 03/03/20 04:00 97 03/03/20 00:00 97.4 82 19 104/66 (79) 96 03/03/20 00:00 95 03/02/20 21:02 98 109/67 03/02/20 21:00 Room Air 03/02/20 20:00 97.0 100 20 102/66 (78) 96 03/02/20 20:00 100 03/02/20 16:00 104 03/02/20 16:00 96.8 107 21 66/62 (63) 97 03/02/20 12:00 99 03/02/20 12:00 96.1 98 21 108/62 (77) 97 Intake and Output 03/02/20 03/03/20 19:00 07:00 Intake Total 100 ml 100 ml Output Total 950 ml 900 ml Balance -850 ml -800 ml Intake Oral 100 ml 100 ml Output Urine Total 600 ml 600 ml Stool Total 350 ml 300 ml Laboratory Tests 03/02/20 10:35: Lactic Acid Level 1.70 03/02/20 12:22: POC Whole Blood Glucose [Pending] 03/02/20 17:02: POC Whole Blood Glucose 135H 03/03/20 00:08: POC Whole Blood Glucose 150H 03/03/20 05:00: White Blood Count 2.0*L, Red Blood Count 2.32L, Hemoglobin 6.7*L, Hematocrit 19.4L, Mean Corpuscular Volume 83, Mean Corpuscular Hemoglobin 29.0, Mean Corpuscular Hemoglobin Concent 34.8, Red Cell Distribution Width 12.8, Platelet Count 21L, Mean Platelet Volume 10.9H, Neutrophils (%) (Auto) , Lymphocytes (%) (Auto) , Monocytes (%) (Auto) , Eosinophils (%) (Auto) , Basophils (%) (Auto) , Neutrophils % (Manual) [Pending], Lymphocytes % (Manual) [Pending], Platelet Estimate [Pending], Platelet Morphology [Pending], Sodium Level 143, Potassium Level 3.1L, Chloride Level 107, Carbon Dioxide Level 30, Anion Gap 6, Blood Urea Nitrogen 15, Creatinine 0.4L, Estimat Glomerular Filtration Rate > 60, Glucose Level 129H, Calcium Level 7.5L, Phosphorus Level 2.6, Magnesium Level 1.6L, Total Bilirubin 0.2, Aspartate Amino Transf (AST/SGOT) 18, Alanine Aminot ransferase (ALT/SGPT) 15, Alkaline Phosphatase 93, Total Protein 3.9L, Albumin 1.1L, Globulin 2.8, Albumin/Globulin Ratio 0.4L Height (Feet): 5 Height (Inches): 4.00 Weight (Pounds): 113 General Appearance: alert EENT: normal ENT inspection Neck: supple Cardiovascular: normal rate Respiratory/Chest: decreased breath sounds Abdomen: hypoactive bowel sounds Extremities: non-tender Assessment/Plan Problem List: (1) Large bowel obstruction ICD Codes: K56.609 - Unspecified intestinal obstruction, unspecified as to partial versus complete obstruction SNOMED: 927161356 (2) Hypokalemia ICD Codes: E87.6 - Hypokalemia SNOMED: 91443338 (3) Lightheaded ICD Codes: R42 - Dizziness and giddiness SNOMED: 976938181 (4) Pancytopenia ICD Codes: D61.818 - Other pancytopenia SNOMED: 391354787 (5) Colon cancer ICD Codes: C18.9 - Malignant neoplasm of colon, unspecified SNOMED: 047524430 Status: stable Assessment/Plan: colon cancer with bowel obstruction s/p resection pending blood transfusion on TPN will make her NPO for now fu surg recs Graeme Hirsch MD Mar 03, 2020 09:43
--- NOTE | 2020-03-03 11:27 | Surgery Progress Note ---
Surgery Progress Note Subjective Procedure Performed ex lap left colectomy mobilization of splenic flexure omentectomy primary anastomosis Symptoms: improved, voiding well, passing flatus, BM Additional Comments stool in rectal tube still distended labs noted neutropenia defer to heme Objective Last 24 Hour Vital Signs Date Time Temp Pulse Resp B/P (MAP) Pulse Ox O2 Delivery O2 Flow Rate FiO2 03/03/20 09:00 Room Air 03/03/20 08:00 97 03/03/20 08:00 97.9 99 18 107/54 (71) 96 03/03/20 04:00 97.6 98 19 117/61 (79) 94 03/03/20 04:00 97 03/03/20 00:00 97.4 82 19 104/66 (79) 96 03/03/20 00:00 95 03/02/20 21:02 98 109/67 03/02/20 21:00 Room Air 03/02/20 20:00 97.0 100 20 102/66 (78) 96 03/02/20 20:00 100 03/02/20 16:00 104 03/02/20 16:00 96.8 107 21 66/62 (63) 97 03/02/20 12:00 99 03/02/20 12:00 96.1 98 21 108/62 (77) 97 I&O Intake and Output 03/02/20 03/03/20 19:00 07:00 Intake Total 100 ml 100 ml Output Total 950 ml 900 ml Balance -850 ml -800 ml Intake Oral 100 ml 100 ml Output Urine Total 600 ml 600 ml Stool Total 350 ml 300 ml Wound: clean, dry, intact Cardiovascular: RSR Respiratory: clear Abdomen: soft, distended, non-tender, decreased bowel sounds Extremities: no edema, no tenderness, no cyanosis Laboratory Tests Test 03/02/20 12:22 03/02/20 17:02 03/03/20 00:08 03/03/20 05:00 POC Whole Blood Glucose Pending 135 MG/DL (74-106) H 150 MG/DL (74-106) H White Blood Count 2.0 K/UL (4.8-10.8) *L Red Blood Count 2.32 M/UL (4.20-5.40) L Hemoglobin 6.7 G/DL (12.0-16.0) *L Hematocrit 19.4 % (37.0-47.0) L Mean Corpuscular Volume 83 FL (80-99) Mean Corpuscular Hemoglobin 29.0 PG (27.0-31.0) Mean Corpuscular Hemoglobin Concent 34.8 G/DL (32.0-36.0) Red Cell Distribution Width 12.8 % (11.6-14.8) Platelet Count 21 K/UL (150-450) L Mean Platelet Volume 10.9 FL (6.5-10.1) H Neutrophils (%) (Auto) % (45.0-75.0) Lymphocytes (%) (Auto) % (20.0-45.0) Monocytes (%) (Auto) % (1.0-10.0) Eosinophils (%) (Auto) % (0.0-3.0) Basophils (%) (Auto) % (0.0-2.0) Differential Total Cells Counted 100 Neutrophils % (Manual) 43 % (45-75) L Lymphocytes % (Manual) 47 % (20-45) H Monocytes % (Manual) 9 % (1-10) Eosinophils % (Manual) 0 % (0-3) Basophils % (Manual) 1 % (0-2) Band Neutrophils 0 % (0-8) Platelet Estimate Decreased L Platelet Morphology Normal Hypochromasia 4+ Anisocytosis 1+ Spherocytes 2+ Sodium Level 143 MMOL/L (136-145) Potassium Level 3.1 MMOL/L (3.5-5.1) L Chloride Level 107 MMOL/L (98-107) Carbon Dioxide Level 30 MMOL/L (21-32) Anion Gap 6 mmol/L (5-15) Blood Urea Nitrogen 15 mg/dL (7-18) Creatinine 0.4 MG/DL (0.55-1.30) L Estimat Glomerular Filtration Rate > 60 mL/min (>60) Glucose Level 129 MG/DL (74-106) H Calcium Level 7.5 MG/DL (8.5-10.1) L Phosphorus Level 2.6 MG/DL (2.5-4.9) Magnesium Level 1.6 MG/DL (1.8-2.4) L Total Bilirubin 0.2 MG/DL (0.2-1.0) Aspartate Amino Transf (AST/SGOT) 18 U/L (15-37) Alanine Aminotransferase (ALT/SGPT) 15 U/L (12-78) Alkaline Phosphatase 93 U/L (46-116) Total Protein 3.9 G/DL (6.4-8.2) L Albumin 1.1 G/DL (3.4-5.0) L Globulin 2.8 g/dL Albumin/Globulin Ratio 0.4 (1.0-2.7) L Plan Problems: (1) Lightheaded (2) Hypokalemia (3) Large bowel obstruction Assessment & Plan: 64-year-old female with abdominal distention potential large bowel obstruction. Afebrile, hemodynamic stable, labs noted no leukocytosis no pain no bleeding. No prior abdominal surgeries. Nausea and emesis clear liquid. Decreased appetite. Cannot recall last flatus or BM. CT as below. No direct mass or abnormality identified but there is absolutely identifiable transition at the rectosigmoid area with proximal dilatation. A colonoscopy is warranted but though would be with definitive risk of potential perforation. GI consult pending. Replace electrolytes. N.p.o. IV fluids will await scope for findings. Conceivably may require surgical intervention. Thank you for let me participate in patient's care will follow with recommendations GI consider for scope 02/17 will be available for surgery in case of emergency high risk for perforation or complication and understands. but strongly recommend scope prior to surgery for etiology purposes. s/p ex lap. see op report recovering okay to downgrade to tele npo okay for ice chips iv fluids abx tomas to stay in until ambulatory heparin petechia plt down hold heparin scds cont abx trend labs trial liquid diet ?air leak but afebrile, hd stable, no wbc, shift improved. needs K replacement plt trending down petechia CT pending electrolytes improved CT with mets to omentum likely was obstructed for significant period of time prior to surgery and tumor with mets. liver okay but post op she is declining. unfortunately prognosis is guarded. asked her if she wanted me to call anyone and declined ct noted. fluid and gas in colon and rectum distal to anastomosis. possible occult leak? but no fevers, no wbc, and exam without tenderness. rectal tube ordered liquid scant output tpn discussed with paul. pending labs. recommended for hospice discussed her condition and decline. unsafe for surgical intervention at this time given plt/labs/decline asked if she wanted me to discuss or call family / friends and declined There are several circumscribed low-density nonenhancing cysts noted in the li michael. The spleen is homogeneous. Gallbladder is without sludge or stone and there is no wall thickening. The pancreas is unremarkable. Adrenals are normal in morphology. The kidneys are normal in size, shape and axis. Small bowel loops are nondistended. The dominant abnormality is severe colonic distention containing air-fluid levels and stool debris. Dilated colon extends down to the rectosigmoid junction where there is an apparent transition. The rectal vault is nondistended with only a small amount of stool. No definite discernible mass is detected there is There is no free fluid or free air. No pathologic adenopathy demonstrated. Bladder is empty. There is no suspicious superficial soft tissue or osseous abnormality. IMPRESSION: SEVERE COLONIC DISTENTION WITH AIR-FLUID LEVELS AND STOOL DEBRIS. THERE IS APPARENT TRANSITION AT THE RECTOSIGMOID JUNCTION WITH A RELATIVELY EMPTY RECTAL VAULT WITH ONLY SMALL AMOUNT OF STOOL. NO DEFINITE DISCERNIBLE MASS AT THE TRANSITION POINT. RECOMMEND GI CONSULTATION AND CONSIDER COLONOSCOPY. (4) Colon cancer Swapnil Brito Mar 03, 2020 11:27
[2020-03-03 12:00] VITALS: BP 102/69
--- NOTE | 2020-03-03 12:00 | NUR ---
CASE MANAGEMENT:REVIEW 03/03/20 SI:COLON CA . LARGE BOWEL OBSTRUCTION . HYPER KALEMIA . S/P EX LAP LEFT COLECTOMY 97.9 99 18 107/54 96% ON RA WBC-2.0 H/H-6.7/19.4 PLT-21 IS: IV ZOSYN Q8HRS IV KCL Q1HRS X5 BAGS IV MAG SULFATE Q1HRS X4 BAGS VIT K SQ QWEEK GRANIX SQ X1 LOPRESSOR PO Q12 TPN/IL @ 24/HR IVF@31/HR : STEP DOWN UNIT Addendum: 03/03/20 at 1231 by LONNIE HENLEY, AGGIE CURIELN PLAN: TRANSFUSE 1 UNIT PRBC'S
--- NOTE | 2020-03-03 15:34 | NUR ---
INSURANCE FAXED CLINICALS/ REVIEW TO [facility]/SCAN T: [phone] OPT #1 F: [phone] SCAN T: [phone] F: [phone]
[2020-03-03 16:00] VITALS: BP 104/61
--- NOTE | 2020-03-03 16:00 | Cardiac Electrophysiology PN ---
Assessment/Plan Assessment/Plan 1. Nonsustained VT 5 beats and Palpitations. No recurrence after hypokalemia corrected. Echo EF 55%. On Metoprolol 25 po bid but not bale to take PO. DC po metoprolol specially that BP is low. May need to switch to iv metoprolol 2. Sinus tach and anemia better after Metoprolol 25 po bid and after PRBC 3. Bowel obstruction. S/P ex lap, left colectomy, mobilization of splenic flexure by Dr Brito, CT abdomen Free fluid seen in the abdomen and pelvis with multiple fluid- filled loops of small and large bowel which may be associated with ileus or enteritis without focal transition point. Lung bases appear worse from the prior exam. Increased free fluid within the abdomen. FU Gi and surgery. On Clear liquid diet 4. Hypokalemia replaced with iv K and Mg. 5. PVCs and dizziness 6. Anemia with Hb 6.9. s/p PRBC 02/26/20 again. S/P CT abdomen and pelvis DW RN Subjective Subjective No more VT since the 5 beats of VT on 02/21/20. In NSR on Lopressor 25 bid. Objective Last 24 Hour Vital Signs Date Time Temp Pulse Resp B/P (MAP) Pulse Ox O2 Delivery O2 Flow Rate FiO2 03/03/20 12:00 96 03/03/20 12:00 97.9 98 20 102/69 (80) 95 03/03/20 09:00 Room Air 03/03/20 09:00 98 102/69 03/03/20 08:00 97 03/03/20 08:00 97.9 99 18 107/54 (71) 96 03/03/20 04:00 97.6 98 19 117/61 (79) 94 03/03/20 04:00 97 03/03/20 00:00 97.4 82 19 104/66 (79) 96 03/03/20 00:00 95 03/02/20 21:02 98 109/67 03/02/20 21:00 Room Air 03/02/20 20:00 97.0 100 20 102/66 (78) 96 03/02/20 20:00 100 03/02/20 16:00 104 03/02/20 16:00 96.8 107 21 66/62 (63) 97 Intake and Output 03/02/20 03/03/20 19:00 07:00 Intake Total 100 ml 100 ml Output Total 950 ml 900 ml Balance -850 ml -800 ml Intake Oral 100 ml 100 ml Output Urine Total 600 ml 600 ml Stool Total 350 ml 300 ml Laboratory Tests Test 03/02/20 17:02 03/03/20 00:08 03/03/20 05:00 03/03/20 06:03 POC Whole Blood Glucose 135 MG/DL (74-106) H 150 MG/DL (74-106) H Pending White Blood Count 2.0 K/UL (4.8-10.8) *L Red Blood Count 2.32 M/UL (4.20-5.40) L Hemoglobin 6.7 G/DL (12.0-16.0) *L Hematocrit 19.4 % (37.0-47.0) L Mean Corpuscular Volume 83 FL (80-99) Mean Corpuscular Hemoglobin 29.0 PG (27.0-31.0) Mean Corpuscular Hemoglobin Concent 34.8 G/DL (32.0-36.0) Red Cell Distribution Width 12.8 % (11.6-14.8) Platelet Count 21 K/UL (150-450) L Mean Platelet Volume 10.9 FL (6.5-10.1) H Neutrophils (%) (Auto) % (45.0-75.0) Lymphocytes (%) (Auto) % (20.0-45.0) Monocytes (%) (Auto) % (1.0-10.0) Eosinophils (%) (Auto) % (0.0-3.0) Basophils (%) (Auto) % (0.0-2.0) Differential Total Cells Counted 100 Neutrophils % (Manual) 43 % (45-75) L Lymphocytes % (Manual) 47 % (20-45) H Monocytes % (Manual) 9 % (1-10) Eosinophils % (Manual) 0 % (0-3) Basophils % (Manual) 1 % (0-2) Band Neutrophils 0 % (0-8) Platelet Estimate Decreased L Platelet Morphology Normal Hypochromasia 4+ Anisocytosis 1+ Spherocytes 2+ Sodium Level 143 MMOL/L (136-145) Potassium Level 3.1 MMOL/L (3.5-5.1) L Chloride Level 107 MMOL/L (98-107) Carbon Dioxide Level 30 MMOL/L (21-32) Anion Gap 6 mmol/L (5-15) Blood Urea Nitrogen 15 mg/dL (7-18) Creatinine 0.4 MG/DL (0.55-1.30) L Estimat Glomerular Filtration Rate > 60 mL/min (>60) Glucose Level 129 MG/DL (74-106) H Calcium Level 7.5 MG/DL (8.5-10.1) L Phosphorus Level 2.6 MG/DL (2.5-4.9) Magnesium Level 1.6 MG/DL (1.8-2.4) L Total Bilirubin 0.2 MG/DL (0.2-1.0) Aspartate Amino Transf (AST/SGOT) 18 U/L (15-37) Alanine Aminotransferase (ALT/SGPT) 15 U/L (12-78) Alkaline Phosphatase 93 U/L (46-116) Total Protein 3.9 G/DL (6.4-8.2) L Albumin 1.1 G/DL (3.4-5.0) L Globulin 2.8 g/dL Albumin/Globulin Ratio 0.4 (1.0-2.7) L Objective HEENT: No JVD Cardiovascular: RSR. No GRM Respiratory: clear Abdomen: soft, non-tender. Jessica intact with no drain Extremities: no edema, no tenderness, no cyanosis Peter Quintana MD Mar 03, 2020 16:00
[2020-03-03] MEDS ORDERED: Magnesium Sulfate 2ml Inj IM ONE (17:15)
[2020-03-03] MEDS: D5NS w/KCl 40mEq 1000ml 1,000 ML IV SCH (17:43)
[2020-03-03 18:07] LABS: HEMATOCRIT 25.6 % (37.0-47.0); MEAN CORPUSCULAR VOLUME 87 FL (80-99); PLATELET COUNT 22 K/UL (150-450); RED BLOOD COUNT 2.93 M/UL (4.20-5.40); RED CELL DISTRIBUTION WIDTH 12.7 % (11.6-14.8); WHITE BLOOD COUNT 2.7 K/UL (4.8-10.8)
--- NOTE | 2020-03-03 18:11 | NUR ---
NURSE NOTES: Please note that electrolytes + zosyn given late because they had to be retimed as this patient was running blood this morning. Per pharmacy mag order non admit and replaced a new order for 3 bags.
--- NOTE | 2020-03-03 19:20 | NUR ---
NURSE NOTES: Patient awake alert and makes needs known. NO SOB or distress. Report given by RYANN Benito. Bed at lowest position, locked with side rails up. Call light in reach. Will continue with plan of care.
--- NOTE | 2020-03-03 19:28 | NUR ---
NURSE HAND-OFF REPORT: Important Events on Shift: low hgb, 1 bag rbc given, hgb now 9.0, Dr. Mon informed. Electrolytes run late because blood given this morning. 1 10meq K still needed, 2 1mg Mags still needed. Patient Status: Diet: Pending Orders: Pending Results/Labs: Pending MD notification: Latest Vital Signs: Temperature 97.9 , Pulse 95 , B/P 104 /61 , Respiratory Rate 20 , O2 SAT 96 , Room Air, O2 Flow Rate 2.0 . Vital Sign Comment: EKG Rhythm: Sinus Rhythm Rhythm change?: N MD Notified?: N - MD Response: Latest Scherer Fall Score: 20 Fall Risk: Low Risk Safety Measures: Call light Within Reach, Bed Alarm Zone 2, Side Rails Side Rails x3, Bed position Low and Locked. Fall Precautions: Yellow Socks Yellow Gown Door Sign Patient Fall Education Report given to .
[2020-03-03 20:00] VITALS: BP 102/54
[2020-03-03] MEDS: Dyna-Hex 2% Top Sol 2oz TOPIC SCH (20:00)
[2020-03-03] MEDS: Metoprolol Tartrate 2.5 MG in D5W 55 ML IVPB SCH (21:00)
[2020-03-03] MEDS ORDERED: TBO-Filgrastim 300 mcg/0.5ml SQ SCH (21:00)
[2020-03-03] MEDS: DEXTROSE IV SCH ×2 (23:40)
[2020-03-03] MEDS: AMINO ACIDS IV SCH ×2 (23:40)
[2020-03-03] MEDS: FAT EMULSION IV SCH ×2 (23:40)
[2020-03-04] VITALS: BP 130/69
[2020-03-04] MEDS: NovoLOG Insulin Flexpen SUBQ SCH ×4 (00:04→17:58)
[2020-03-04 04:00] VITALS: BP 107/63
[2020-03-04] MEDS: Piperacillin/Tazobactam 3.375 GM in NS 110 ML IVPB SCH ×3 (05:16→21:03)
[2020-03-04 05:46] LABS: ALANINE AMINOTRANSFERASE 18 U/L (12-78); ALBUMIN/GLOBULIN RATIO 0.3 (1.0-2.7); ALKALINE PHOSPHATASE 120 U/L (46-116); ANION GAP 6 mmol/L (5-15); ASPARTATE AMINO TRANSFERASE 26 U/L (15-37); BILIRUBIN,TOTAL 0.4 MG/DL (0.2-1.0); BLOOD UREA NITROGEN 16 mg/dL (7-18); CALCIUM 7.5 MG/DL (8.5-10.1); CARBON DIOXIDE 26 MMOL/L (21-32); CHLORIDE 107 MMOL/L (98-107); CREATININE 0.4 MG/DL (0.55-1.30); PHOSPHORUS 2.4 MG/DL (2.5-4.9); POTASSIUM 3.7 MMOL/L (3.5-5.1); SODIUM 139 MMOL/L (136-145)
--- NOTE | 2020-03-04 07:13 | NUR ---
NURSE NOTES: Pt received from Opal GARZON. Pt in bed with HOB at 30 degrees. Pt in bed sleeping. TPN and KCL running. Bed low and locked call light within reach. Rectal tube and tomas running.
--- NOTE | 2020-03-04 07:31 | General Progress Note ---
Subjective Allergies: Coded Allergies: No Known Allergies (Unverified , 02/15/20) Objective Last 24 Hour Vital Signs Date Time Temp Pulse Resp B/P (MAP) Pulse Ox O2 Delivery O2 Flow Rate FiO2 03/04/20 04:00 97.5 101 20 107/63 (78) 92 03/04/20 04:00 101 03/04/20 00:00 97.5 83 20 130/69 (89) 92 03/04/20 00:00 97 03/03/20 21:00 85 102/54 03/03/20 21:00 Room Air 03/03/20 20:00 97.4 92 20 102/54 (70) 93 03/03/20 20:00 91 03/03/20 16:00 95 03/03/20 16:00 97.9 95 20 104/61 (75) 96 03/03/20 12:00 96 03/03/20 12:00 97.9 98 20 102/69 (80) 95 03/03/20 09:00 Room Air 03/03/20 09:00 98 102/69 03/03/20 08:00 97 03/03/20 08:00 97.9 99 18 107/54 (71) 96 Intake and Output 03/03/20 03/04/20 19:00 07:00 Output Total 1400 ml Balance -1400 ml Output Urine Total 1000 ml Stool Total 400 ml Laboratory Tests 03/03/20 17:55: White Blood Count 2.7L, Red Blood Count 2.93L, Hemoglobin 9.0#L, Hematocrit 25.6#L, Mean Corpuscular Volume 87, Mean Corpuscular Hemoglobin 30.6, Mean Corpuscular Hemoglobin Concent 35.1, Red Cell Distribution Width 12.7, Platelet Count 22L, Mean Platelet Volume 14.0H, Neutrophils (%) (Auto) , Lymphocytes (%) (Auto) , Monocytes (%) (Auto) , Eosinophils (%) (Auto) , Basophils (%) (Auto) , Differential Total Cells Counted 100, Neutrophils % (Manual) 34L, Lymphocytes % (Manual) 47H, Monocytes % (Manual) 16H, Eosinophils % (Manual) 0, Basophils % (Manual) 0, Band Neutrophils 3, Platelet Estimate DecreasedL, Platelet Morphology Normal, Hypochromasia 3+, Anisocytosis 1+, Spherocytes 1+ 03/04/20 00:01: POC Whole Blood Glucose [Pending] 03/04/20 04:15: Sodium Level 139, Potassium Level 3.7, Chloride Level 107, Carbon Dioxide Level 26, Anion Gap 6, Blood Urea Nitrogen 16, Creatinine 0.4L, Estimat Glomerular Filtration Rate > 60, Glucose Level 160H, Calcium Level 7.5L, Phosphorus Level 2.4L, Magnesium Level 2.1, Total Bilirubin 0.4, Aspartate Amino Transf (AST/SGOT) 26, Alanine Aminotransferase (ALT/SGPT) 18, Alkaline Phosphatase 120H , Total Protein 4.1L, Albumin 1.0L, Globulin 3.1, Albumin/Globulin Ratio 0.3L 03/04/20 05:11: POC Whole Blood Glucose 139H Height (Feet): 5 Height (Inches): 4.00 Weight (Pounds): 113 General Appearance: mild distress Neck: non-tender Cardiovascular: normal rate Respiratory/Chest: decreased breath sounds Abdomen: hypoactive bowel sounds, tender Extremities: non-tender Assessment/Plan Problem List: (1) Large bowel obstruction ICD Codes: K56.609 - Unspecified intestinal obstruction, unspecified as to partial versus complete obstruction SNOMED: 408847624 (2) Hypokalemia ICD Codes: E87.6 - Hypokalemia SNOMED: 58114843 (3) Lightheaded ICD Codes: R42 - Dizziness and giddiness SNOMED: 614892095 (4) Pancytopenia ICD Codes: D61.818 - Other pancytopenia SNOMED: 215688105 (5) Colon cancer ICD Codes: C18.9 - Malignant neoplasm of colon, unspecified SNOMED: 727969693 Status: stable Assessment/Plan: colon cancer with bowel obstruction s/p resection s/p blood transfusion on TPN NPO abx per ID fu hem recs fu surg recs Graeme Hirsch MD Mar 04, 2020 07:30
[2020-03-04 08:00] VITALS: BP 108/57
--- NOTE | 2020-03-04 08:08 | NUR ---
NURSE HAND-OFF REPORT: Important Events on Shift:[] Patient Status: [] Diet: [] Pending Orders: [] Pending Results/Labs:[] Pending MD notification:[] Latest Vital Signs: Temperature 97.5 , Pulse 101 , B/P 107 /63 , Respiratory Rate 20 , O2 SAT 92 , Room Air, O2 Flow Rate 2.0 . Vital Sign Comment: [] EKG Rhythm: Sinus Tachycardia Rhythm change?: N MD Notified?: N - MD Response: Latest Scherer Fall Score: 20 Fall Risk: Low Risk Safety Measures: Call light Within Reach, Bed Alarm Zone 2, Side Rails Side Rails x3, Bed position Low and Locked. Fall Precautions: Yellow Socks Yellow Gown Door Sign Patient Fall Education Report given to [RYANN Benito].NURSE NOTES:
[2020-03-04] MEDS: Metoprolol Tartrate 2.5 MG in D5W 55 ML IVPB SCH ×2 (08:22→21:00)
[2020-03-04 12:00] VITALS: BP 121/58
[2020-03-04 16:00] VITALS: BP 112/65
--- NOTE | 2020-03-04 16:40 | Cardiac Electrophysiology PN ---
Assessment/Plan Assessment/Plan 1. Nonsustained VT 5 beats and Palpitations. No recurrence after hypokalemia corrected. Echo EF 55%. Off po metoprolol specially that BP is low. On iv metoprolol 2.5 mg q 12 2. Sinus tach and anemia better on Metoprolol 2.5 iv bid and after PRBC 3. Bowel obstruction. S/P ex lap, left colectomy, mobilization of splenic flexure by Dr Brito, CT abdomen Free fluid seen in the abdomen and pelvis with multiple fluid- filled loops of small and large bowel which may be associated with ileus or enteritis without focal transition point. Lung bases appear worse from the prior exam. Increased free fluid within the abdomen. FU Gi and surgery. On Clear liquid diet 4. Hypokalemia replaced with iv K and Mg. 5. PVCs and dizziness 6. Anemia with Hb 6.9. s/p PRBC 02/26/20 again. S/P CT abdomen and pelvis DW RN Subjective Subjective No more VT since the 5 beats of VT on 02/21/20. In NSR on Lopressor 25 bid.NPO on TPN and Lipids. Very weak. Objective Last 24 Hour Vital Signs Date Time Temp Pulse Resp B/P (MAP) Pulse Ox O2 Delivery O2 Flow Rate FiO2 03/04/20 12:00 106 03/04/20 12:00 97.0 108 19 121/58 (79) 99 03/04/20 09:00 Room Air 03/04/20 08:22 105 108/57 03/04/20 08:00 97.9 105 17 108/57 (74) 91 03/04/20 08:00 107 03/04/20 04:00 97.5 101 20 107/63 (78) 92 03/04/20 04:00 101 03/04/20 00:00 97.5 83 20 130/69 (89) 92 03/04/20 00:00 97 03/03/20 21:00 85 102/54 03/03/20 21:00 Room Air 03/03/20 20:00 97.4 92 20 102/54 (70) 93 03/03/20 20:00 91 Intake and Output 03/03/20 03/04/20 19:00 07:00 Output Total 1400 ml 1100 ml Balance -1400 ml -1100 ml Output Urine Total 1000 ml 800 ml Stool Total 400 ml 300 ml Laboratory Tests Test 03/03/20 17:55 03/04/20 00:01 03/04/20 04:15 03/04/20 05:11 White Blood Count 2.7 K/UL (4.8-10.8) L Red Blood Count 2.93 M/UL (4.20-5.40) L Hemoglobin 9.0 G/DL (12.0-16.0) #L Hematocrit 25.6 % (37.0-47.0) #L Mean Corpuscular Volume 87 FL (80-99) Mean Corpuscular Hemoglobin 30.6 PG (27.0-31.0) Mean Corpuscular Hemoglobin Concent 35.1 G/DL (32.0-36.0) Red Cell Distribution Width 12.7 % (11.6-14.8) Platelet Count 22 K/UL (150-450) L Mean Platelet Volume 14.0 FL (6.5-10.1) H Neutrophils (%) (Auto) % (45.0-75.0) Lymphocytes (%) (Auto) % (20.0-45.0) Monocytes (%) (Auto) % (1.0-10.0) Eosinophils (%) (Auto) % (0.0-3.0) Basophils (%) (Auto) % (0.0-2.0) Differential Total Cells Counted 100 Neutrophils % (Manual) 34 % (45-75) L Lymphocytes % (Manual) 47 % (20-45) H Monocytes % (Manual) 16 % (1-10) H Eosinophils % (Manual) 0 % (0-3) Basophils % (Manual) 0 % (0-2) Band Neutrophils 3 % (0-8) Platelet Estimate Decreased L Platelet Morphology Normal Hypochromasia 3+ Anisocytosis 1+ Spherocytes 1+ POC Whole Blood Glucose Pending 139 MG/DL (74-106) H Sodium Level 139 MMOL/L (136-145) Potassium Level 3.7 MMOL/L (3.5-5.1) Chloride Level 107 MMOL/L (98-107) Carbon Dioxide Level 26 MMOL/L (21-32) Anion Gap 6 mmol/L (5-15) Blood Urea Nitrogen 16 mg/dL (7-18) Creatinine 0.4 MG/DL (0.55-1.30) L Estimat Glomerular Filtration Rate > 60 mL/min (>60) Glucose Level 160 MG/DL (74-106) H Calcium Level 7.5 MG/DL (8.5-10.1) L Phosphorus Level 2.4 MG/DL (2.5-4.9) L Magnesium Level 2.1 MG/DL (1.8-2.4) Total Bilirubin 0.4 MG/DL (0.2-1.0) Aspartate Amino Transf (AST/SGOT) 26 U/L (15-37) Alanine Aminotransferase (ALT/SGPT) 18 U/L (12-78) Alkaline Phosphatase 120 U/L (46-116) H Total Protein 4.1 G/DL (6.4-8.2) L Albumin 1.0 G/DL (3.4-5.0) L Globulin 3.1 g/dL Albumin/Globulin Ratio 0.3 (1.0-2.7) L Objective HEENT: No JVD Cardiovascular: RSR. No GRM Respiratory: clear Abdomen: soft, non-tender. Jessica intact with no drain Extremities: no edema, no tenderness, no cyanosis Peter Quintana MD Mar 04, 2020 16:40
--- NOTE | 2020-03-04 17:16 | NUR ---
NURSE NOTES: New wound noted on right upper thigh. Documented this wound. It is almost identical to wound on left hip.
--- NOTE | 2020-03-04 18:41 | Nephrology Progress Note ---
Assessment/Plan Plan #Severe hypokalemia #Abdominal distention - bowel obstruction due to colonic mass- s/p resection #lactic acidosis #htn #Dehydration #HLD - s/p resection - TPN - replete lyres - monitor lactic acidic level - replete K, elvi mag - check vitamin D level - IVF- switch to D5NS + 40 kcl - replete K, mag and phos - NPO - monitor lytes - avoid nephrotoxins - gen surg eval Subjective ROS Limited/Unobtainable: No Constitutional: Reports: weakness HEENT: Denies: no symptoms, eye pain, blurred vision, tearing, double vision, ear pain, ear discharge, nose pain, nose congestion, throat pain, throat swelling, mouth pain, mouth swelling, other Genitourinary: Denies: no symptoms, burning, discharge, frequency, flank pain, hematuria, incontinence, pain, urgency, other Neurologic/Psychiatric: Denies: no symptoms, anxiety, depressed, emotional problems, headache, numbness, paresthesia, pre-existing deficit, seizure, tingling, tremors, weakness, other Subjective s/p resection CT with mets to omentum more lethargic transferred to STEP down unit started on TPN NPO Objective Objective Last 24 Hour Vital Signs Date Time Temp Pulse Resp B/P (MAP) Pulse Ox O2 Delivery O2 Flow Rate FiO2 03/04/20 16:00 107 03/04/20 16:00 97.9 111 20 112/65 (81) 94 03/04/20 12:00 106 03/04/20 12:00 97.0 108 19 121/58 (79) 99 03/04/20 09:00 Room Air 03/04/20 08:22 105 108/57 03/04/20 08:00 97.9 105 17 108/57 (74) 91 03/04/20 08:00 107 03/04/20 04:00 97.5 101 20 107/63 (78) 92 03/04/20 04:00 101 03/04/20 00:00 97.5 83 20 130/69 (89) 92 03/04/20 00:00 97 03/03/20 21:00 85 102/54 03/03/20 21:00 Room Air 03/03/20 20:00 97.4 92 20 102/54 (70) 93 03/03/20 20:00 91 Intake and Output 03/03/20 03/04/20 19:00 07:00 Output Total 1400 ml 1100 ml Balance -1400 ml -1100 ml Output Urine Total 1000 ml 800 ml Stool Total 400 ml 300 ml Laboratory Tests 03/04/20 00:01: POC Whole Blood Glucose [Pending] 03/04/20 04:15: Sodium Level 139, Potassium Level 3.7, Chloride Level 107, Carbon Dioxide Level 26, Anion Gap 6, Blood Urea Nitrogen 16, Creatinine 0.4L, Estimat Glomerular Filtration Rate > 60, Glucose Level 160H, Calcium Level 7.5L, Phosphorus Level 2.4L, Magnesium Level 2.1, Total Bilirubin 0.4, Aspartate Amino Transf (AST/SGOT) 26, Alanine Aminotransferase (ALT/SGPT) 18, Alkaline Phosphatase 120H , Total Protein 4.1L, Albumin 1.0L, Globulin 3.1, Albumin/Globulin Ratio 0.3L 03/04/20 05:11: POC Whole Blood Glucose 139H Height (Feet): 5 Height (Inches): 4.00 Weight (Pounds): 113 Yakelin Arnett M.D. Mar 04, 2020 18:41
--- NOTE | 2020-03-04 19:15 | NUR ---
NURSE NOTES: Report given by RYANN Benito. Patient is alert and oriented to name. No SOB. On 2 LPM nasal canula. O2 saturation at 97%. Call light with in reach. Bed at lowest position locked with side rails up. linseed oil press tender intact. Will continue with plan of care.
--- NOTE | 2020-03-04 19:17 | NUR ---
NURSE HAND-OFF REPORT: Important Events on Shift: Sleepy throughout shift, antibiotics and fluids given. New wound noted on upper right lateral thigh Patient Status: in bed, resting. abusable to voice Diet: NPO (TPN) Pending Orders: Pending Results/Labs: Pending MD notification: Latest Vital Signs: Temperature 97.9 , Pulse 95 , B/P 104 /61 , Respiratory Rate 20 , O2 SAT 96 , Room Air, O2 Flow Rate 2.0 . Vital Sign Comment: tachy all shift, held metoprolol this morning EKG Rhythm: Sinus Rhythm Rhythm change?: N MD Notified?: N - MD Response: Latest Scherer Fall Score: 20 Fall Risk: Low Risk Safety Measures: Call light Within Reach, Bed Alarm Zone 2, Side Rails Side Rails x3, Bed position Low and Locked. Fall Precautions: Yellow Socks Yellow Gown Door Sign Patient Fall Education Report given to Con GARZON
[2020-03-04] MEDS: DEXTROSE IV SCH ×2 (19:59)
[2020-03-04] MEDS: FAT EMULSION IV SCH ×2 (19:59)
[2020-03-04] MEDS: AMINO ACIDS IV SCH ×2 (19:59)
[2020-03-04 20:00] VITALS: BP 103/68
[2020-03-04] MEDS: Dyna-Hex 2% Top Sol 2oz TOPIC SCH (20:00)
[2020-03-04] MEDS: D5NS w/KCl 40mEq 1000ml 1,000 ML IV SCH (20:00)
[2020-03-04] MEDS: Potassium Phosphate 15mm/250ml 250 ML IVPB SCH (21:03)
[2020-03-05] VITALS: BP 124/67
[2020-03-05] MEDS: Potassium Phosphate 15mm/250ml 250 ML IVPB SCH
[2020-03-05 04:00] VITALS: BP 107/62
[2020-03-05] MEDS: NovoLOG Insulin Flexpen SUBQ SCH ×5 (06:00→23:40)
[2020-03-05] MEDS: Piperacillin/Tazobactam 3.375 GM in NS 110 ML IVPB SCH ×4 (06:09→21:13)
--- NOTE | 2020-03-05 07:26 | NUR ---
NURSE HAND-OFF REPORT: Important Events on Shift:[PotassiumPhos IVPB, DS 0.9% w/ KCL 40 meq administered. TPN bag changed and administered, Lopressor held due to BP falling below therapeutic range. 102-107 SBP. Continues to be SR to ST as high as 109, 1000 cc noted in rectal tube this AM. 500 cc in tomas catheter, continues to have swelling of bilateral legs but improved] Patient Status: [Stable alert and oriented x1 to 2. ] Diet: [NPO] Pending Orders: [] Pending Results/Labs:[] Pending MD notification:[] Latest Vital Signs: Temperature 97.8 , Pulse 108 , B/P 107 /62 , Respiratory Rate 15 , O2 SAT 100 , Room Air, O2 Flow Rate 2.0 . Vital Sign Comment: [] EKG Rhythm: Sinus Tachycardia Rhythm change?: N MD Notified?: N - MD Response: Latest Scherer Fall Score: 20 Fall Risk: Low Risk Safety Measures: Call light Within Reach, Bed Alarm Zone 2, Side Rails Side Rails x3, Bed position Low and Locked. Fall Precautions: Yellow Socks Yellow Gown Door Sign Patient Fall Education Report given to [RYANN Hutchins].
--- NOTE | 2020-03-05 07:57 | NUR ---
NURSE NOTES: Received report from RYANN Joseph. Pt awake, A/O x2, denies any pain, no s/sx of acute distress, breathing even and unlabored in RA. Pt had PICC line on R UA, patent and asymptomatic, running TPN and IVF as ordered. Bed on lowest position, call light within reach. Will continue plan of care.
[2020-03-05 08:00] VITALS: BP 124/60
--- NOTE | 2020-03-05 08:27 | General Progress Note ---
Subjective Allergies: Coded Allergies: No Known Allergies (Unverified , 02/15/20) Objective Last 24 Hour Vital Signs Date Time Temp Pulse Resp B/P (MAP) Pulse Ox O2 Delivery O2 Flow Rate FiO2 03/05/20 08:00 97.5 116 18 124/60 (81) 92 03/05/20 04:00 108 03/05/20 04:00 97.8 109 15 107/62 (77) 100 03/05/20 00:00 105 03/05/20 00:00 98.1 107 15 124/67 (86) 100 03/04/20 21:00 Room Air 03/04/20 21:00 101 103/68 03/04/20 20:00 107 03/04/20 20:00 98.1 71 15 103/68 (80) 99 03/04/20 16:00 107 03/04/20 16:00 97.9 111 20 112/65 (81) 94 03/04/20 12:00 106 03/04/20 12:00 97.0 108 19 121/58 (79) 99 03/04/20 09:00 Room Air Intake and Output 03/04/20 03/05/20 18:59 06:59 Output Total 1100 ml 1000 ml Balance -1100 ml -1000 ml Output Urine Total 800 ml 800 ml Stool Total 300 ml 200 ml Laboratory Tests 03/05/20 07:15: Sodium Level [Pending], Potassium Level [Pending], Chloride Level [Pending], Carbon Dioxide Level [Pending], Blood Urea Nitrogen [Pending], Creatinine [Pending], Estimat Glomerular Filtration Rate [Pending], Glucose Level [Pending], Calcium Level [Pending], Phosphorus Level [Pending], Magnesium Level [Pending] Height (Feet): 5 Height (Inches): 4.00 Weight (Pounds): 113 General Appearance: no apparent distress EENT: normal ENT inspection Neck: supple Cardiovascular: normal rate Respiratory/Chest: decreased breath sounds Abdomen: hypoactive bowel sounds, distended Extremities: non-tender Assessment/Plan Problem List: (1) Large bowel obstruction ICD Codes: K56.609 - Unspecified intestinal obstruction, unspecified as to partial versus complete obstruction SNOMED: 134465380 (2) Hypokalemia ICD Codes: E87.6 - Hypokalemia SNOMED: 74472613 (3) Lightheaded ICD Codes: R42 - Dizziness and giddiness SNOMED: 442167292 (4) Pancytopenia ICD Codes: D61.818 - Other pancytopenia SNOMED: 031218252 (5) Colon cancer ICD Codes: C18.9 - Malignant neoplasm of colon, unspecified SNOMED: 397981294 Status: stable Assessment/Plan: colon cancer with bowel obstruction s/p resection s/p blood transfusion on TPN NPO abx per ID fu hem recs fu surg recs Graeme Hirsch MD Mar 05, 2020 08:27
[2020-03-05 08:50] LABS: ANION GAP 7 mmol/L (5-15); BLOOD UREA NITROGEN 17 mg/dL (7-18); CALCIUM 7.2 MG/DL (8.5-10.1); CARBON DIOXIDE 25 MMOL/L (21-32); CHLORIDE 110 MMOL/L (98-107); CREATININE 0.3 MG/DL (0.55-1.30); PHOSPHORUS 4.2 MG/DL (2.5-4.9); POTASSIUM 4.7 MMOL/L (3.5-5.1); SODIUM 142 MMOL/L (136-145)
[2020-03-05] MEDS: Metoprolol Tartrate 2.5 MG in D5W 55 ML IVPB SCH ×3 (09:33→21:12)
--- NOTE | 2020-03-05 09:49 | NUR ---
NURSE NOTES: Asked pharmacy if possible to re-time the metoprolol. Med not compatible with IV abx that is currently running. per pharmacy, administer when zosyn is finished.
[2020-03-05 09:58] LABS: HEMATOCRIT 24.2 % (37.0-47.0); HEMOGLOBIN 8.6 G/DL (12.0-16.0); MEAN CORPUSCULAR VOLUME 84 FL (80-99); PLATELET COUNT 15 K/UL (150-450); RED BLOOD COUNT 2.87 M/UL (4.20-5.40); RED CELL DISTRIBUTION WIDTH 12.8 % (11.6-14.8); WHITE BLOOD COUNT 7.4 K/UL (4.8-10.8)
--- NOTE | 2020-03-05 10:03 | NUR ---
NURSE NOTES: Reported platelets of [address] Mon. Awaiting for response. Addendum: 03/05/20 at 1101 by Liset Broderick RN Per , give 1 unit platelets.
[2020-03-05 12:00] VITALS: BP 120/66
--- NOTE | 2020-03-05 12:19 | Nephrology Progress Note ---
Assessment/Plan Plan #Severe hypokalemia #Abdominal distention - bowel obstruction due to colonic mass- s/p resection #lactic acidosis #htn #Dehydration #HLD - s/p resection - ivf - npo - TPN - replete lyres - monitor lactic acidic level - replete K, elvi mag - check vitamin D level - IVF- switch to D5NS + 40 kcl - replete K, mag and phos prn - NPO - monitor lytes - avoid nephrotoxins - gen surg eval Subjective ROS Limited/Unobtainable: No Constitutional: Reports: weakness HEENT: Denies: no symptoms, eye pain, blurred vision, tearing, double vision, ear pain, ear discharge, nose pain, nose congestion, throat pain, throat swelling, mouth pain, mouth swelling, other Genitourinary: Denies: no symptoms, burning, discharge, frequency, flank pain, hematuria, incontinence, pain, urgency, other Neurologic/Psychiatric: Denies: no symptoms, anxiety, depressed, emotional problems, headache, numbness, paresthesia, pre-existing deficit, seizure, tingling, tremors, weakness, other Subjective s/p resection CT with mets to omentum Appears comfortable labs reviewed no nausea or emsis Objective Objective Last 24 Hour Vital Signs Date Time Temp Pulse Resp B/P (MAP) Pulse Ox O2 Delivery O2 Flow Rate FiO2 03/05/20 10:17 111 124/60 03/05/20 10:06 111 03/05/20 09:00 Room Air 03/05/20 08:00 97.5 116 18 124/60 (81) 92 03/05/20 04:00 108 03/05/20 04:00 97.8 109 15 107/62 (77) 100 03/05/20 00:00 105 03/05/20 00:00 98.1 107 15 124/67 (86) 100 03/04/20 21:00 Room Air 03/04/20 21:00 101 103/68 03/04/20 20:00 107 03/04/20 20:00 98.1 71 15 103/68 (80) 99 03/04/20 16:00 107 03/04/20 16:00 97.9 111 20 112/65 (81) 94 Intake and Output 03/04/20 03/05/20 18:59 06:59 Output Total 1100 ml 1000 ml Balance -1100 ml -1000 ml Output Urine Total 800 ml 800 ml Stool Total 300 ml 200 ml Laboratory Tests 03/05/20 07:15: Sodium Level 142, Potassium Level 4.7, Chloride Level 110H, Carbon Dioxide Level 25, Anion Gap 7, Blood Urea Nitrogen 17, Creatinine 0.3L, Estimat Glomerular Filtration Rate > 60, Glucose Level 125H, Calcium Level 7.2L, Phosphorus Level 4.2, Magnesium Level 1.8 03/05/20 09:15: White Blood Count 7.4, Red Blood Count 2.87L, Hemoglobin 8.6L, Hematocrit 24.2L, Mean Corpuscular Volume 84, Mean Corpuscular Hemoglobin 30.0, Mean Corpuscular Hemoglobin Concent 35.6, Red Cell Distribution Width 12.8, Platelet Count 15L, Mean Platelet Volume 10.4H, Neutrophils (%) (Auto) , Lymphocytes (%) (Auto) , Monocytes (%) (Auto) , Eosinophils (%) (Auto) , Basophils (%) (Auto) , Neutrophils % (Manual) [Pending], Lymphocytes % (Manual) [Pending], Platelet Estimate [Pending], Platelet Morphology [Pending] 03/05/20 11:55: POC Whole Blood Glucose [Pending] Height (Feet): 5 Height (Inches): 4.00 Weight (Pounds): 113 Yakelin Arnett M.D. Mar 05, 2020 12:19
--- NOTE | 2020-03-05 13:58 | Hematology/Onc Progress Note ---
Assessment/Plan Assessment/Plan Assessment and Recs # Stage IV adenocarcinoma of the colon - biopsy report shows pT3, N2b, M1, lesion with omental metastasis, tumor markers reviewed, just cea 8.5, as well as ct a/p reviewed --> operative report reviewed, per surg, surg ws 02/21/2020 --> currently functional status very poor, at this time hold off further rx in re to chemo --> tumor markers ordered, reviewed, only cea elev --> Ct a/p reviewed, no sig mets on scan, but does have omental mets, does show pneumoperitoneum --> if functional status improves consider single agent PO drug xeloda and if improves further FOLFOX (combo) # Thrombocytopenia - potential causes multifactorial, evaluate liver and viral etiologies to begin, severe and acute, did get heparin --> lactic acid 2.6, r/o sepsis --> Hep panel and HIV neg, HIT is negative too --> ct a/p reviewed --> Peripheral smear ordered to evaluate for blasts /schistocytes -->does not show any --> abx and other meds have been reviewed --> transfuse to keep plt >20k --> meds reviewed --> plt 212-->30-->18->8-->15 --> DIC panel has been ordered--> elev lactic acid 4.8-> is wnl --> ABX zosyn --> transfuse 2 units 03/05 # Large bowel obstruction --> due to above cancer --> s/p surg # Malnutrition --> s/p tpn # Hypokalemia --> replete with k # PALMER --> hypovolemic, now improved # Dvt ppx scds The timing of this note does not necessarily reflect the time of the patient was seen. Greatly appreciate consultation. Subjective HEENT: Denies: no symptoms, eye pain, blurred vision, tearing, double vision, ear pain, ear discharge, nose pain, nose congestion, throat pain, throat swelling, mouth pain, mouth swelling, other Respiratory: Denies: no symptoms, cough, shortness of breath, SOB with excertion, SOB at rest, sputum, wheezing, other Gastrointestinal/Abdominal: Denies: no symptoms, abdomen distended, abdominal pain, black stools, tarry stools, blood in stool, constipated, diarrhea, difficulty swallowing, nausea, poor appetite, poor fluid intake, rectal bleeding, vomiting, other Endocrine: Denies: no symptoms, excessive sweating, flushing, intolerance to cold, intolerance to heat, increased hunger, increased thirst, increased urine, unexplained weight gain, unexplained weight loss, other Allergies: Coded Allergies: No Known Allergies (Unverified , 02/15/20) Subjective 02/28 asleep no bleeding, pending tumor markers, with decreased po intake 03/01 more awake dw RN at bedside this am, lactic acid remains elev, start on zosyn stat 03/02 is calm, comfortable, labs noted, tumor markers reviewed, no bm 03/03 labs reviewed, not eating much, imaging noted, new path results noted 03/05 dw rn in am, plt 15, will get 1 unit plts, no bleeding, path noted again Objective Objective Current Medications Medications (Trade) Dose Ordered Sig/Fozia Route PRN Reason Start Time Stop Time Status Last Admin Dose Admin Acetaminophen (Tylenol) 650 mg Q6H PRN ORAL Mild Pain (Pain Scale 1-3) 02/18/20 17:15 03/19/20 17:14 Chlorhexidine Gluconate (Gail-Hex 2%) 1 applic DAILY@2000 TOPIC 02/25/20 20:00 05/25/20 19:59 03/04/20 20:00 Dextrose 1,000 ml @ 0 mls/hr Q24H PRN IV PN interrupted or unavailable 02/29/20 20:00 03/30/20 19:59 Dextrose (Dextrose 50%) 25 ml Q30M PRN IV Hypoglycemia 03/01/20 23:59 05/30/20 23:58 Dextrose (Dextrose 50%) 50 ml Q30M PRN IV Hypoglycemia 02/29/20 23:59 05/29/20 23:58 Dextrose/ Electrolytes 1,000 ml @ 31 mls/hr Q24H IV 02/29/20 20:00 03/30/20 19:59 03/04/20 20:00 Diphenhydramine HCl (Benadryl) 12.5 mg Q6H PRN IVP Itching/Pruritis 02/18/20 17:15 03/19/20 17:14 Fat Emulsion Intravenous 216 ml/Amino Acids/ Electrolytes/ Dextrose 1,656 ml @ 69 mls/hr Q24H IV 02/29/20 20:00 03/30/20 19:59 03/04/20 19:59 Insulin Aspart (NovoLOG) Q6HR SUBQ 03/01/20 00:00 05/30/20 00:00 03/04/20 11:52 Meclizine HCl (Antivert) 25 mg TID PRN ORAL for dizziness 02/20/20 20:30 03/21/20 20:29 Metoprolol Tartrate 2.5 mg/ Dextrose 57.5 ml @ 130 mls/hr EVERY 12 HOURS IVPB 03/03/20 21:00 04/02/20 20:59 03/05/20 10:17 Ondansetron HCl (Zofran) 4 mg Q6H PRN IVP Nausea & Vomiting 02/18/20 17:15 03/19/20 17:14 Phytonadione (Vitamin K) 10 mg ONCE A WEEK SUBQ 03/07/20 09:00 06/05/20 08:59 Piperacillin Sod/ Tazobactam Sod 3.375 gm/Sodium Chloride 110 ml @ 27.5 mls/hr EVERY 8 HOURS IVPB 03/01/20 14:00 03/07/20 23:59 03/05/20 06:09 Promethazine HCl 50 mg/Sodium Chloride 111 ml @ 222 mls/hr Q6H PRN IVPB for dizziness 02/20/20 20:45 03/21/20 20:44 02/20/20 21:42 Last 24 Hour Vital Signs Date Time Temp Pulse Resp B/P (MAP) Pulse Ox O2 Delivery O2 Flow Rate FiO2 03/05/20 12:00 97.7 100 18 120/66 (84) 96 03/05/20 10:17 111 124/60 03/05/20 10:06 111 03/05/20 09:00 Room Air 03/05/20 08:00 97.5 116 18 124/60 (81) 92 03/05/20 04:00 108 03/05/20 04:00 97.8 109 15 107/62 (77) 100 03/05/20 00:00 105 03/05/20 00:00 98.1 107 15 124/67 (86) 100 03/04/20 21:00 Room Air 03/04/20 21:00 101 103/68 03/04/20 20:00 107 03/04/20 20:00 98.1 71 15 103/68 (80) 99 03/04/20 16:00 107 03/04/20 16:00 97.9 111 20 112/65 (81) 94 03/04/20 12:00 106 03/04/20 12:00 97.0 108 19 121/58 (79) 99 03/04/20 09:00 Room Air 03/04/20 08:22 105 108/57 03/04/20 08:00 97.9 105 17 108/57 (74) 91 03/04/20 08:00 107 03/04/20 04:00 97.5 101 20 107/63 (78) 92 03/04/20 04:00 101 03/04/20 00:00 97.5 83 20 130/69 (89) 92 03/04/20 00:00 97 03/03/20 21:00 85 102/54 03/03/20 21:00 Room Air 03/03/20 20:00 97.4 92 20 102/54 (70) 93 03/03/20 20:00 91 03/03/20 16:00 95 03/03/20 16:00 97.9 95 20 104/61 (75) 96 Intake and Output 03/04/20 03/05/20 19:00 07:00 Output Total 1000 ml 1500 ml Balance -1000 ml -1500 ml Output Urine Total 800 ml 500 ml Stool Total 200 ml 1000 ml Labs Test 03/02/20 17:02 03/03/20 00:08 03/03/20 05:00 03/03/20 06:03 POC Whole Blood Glucose 135 MG/DL (74-106) 150 MG/DL (74-106) White Blood Count 2.0 K/UL (4.8-10.8) Red Blood Count 2.32 M/UL (4.20-5.40) Hemoglobin 6.7 G/DL (12.0-16.0) Hematocrit 19.4 % (37.0-47.0) Mean Corpuscular Volume 83 FL (80-99) Mean Corpuscular Hemoglobin 29.0 PG (27.0-31.0) Mean Corpuscular Hemoglobin Concent 34.8 G/DL (32.0-36.0) Red Cell Distribution Width 12.8 % (11.6-14.8) Platelet Count 21 K/UL (150-450) Mean Platelet Volume 10.9 FL (6.5-10.1) Neutrophils (%) (Auto) % (45.0-75.0) Lymphocytes (%) (Auto) % (20.0-45.0) Monocytes (%) (Auto) % (1.0-10.0) Eosinophils (%) (Auto) % (0.0-3.0) Basophils (%) (Auto) % (0.0-2.0) Differential Total Cells Counted 100 Neutrophils % (Manual) 43 % (45-75) Lymphocytes % (Manual) 47 % (20-45) Monocytes % (Manual) 9 % (1-10) Eosinophils % (Manual) 0 % (0-3) Basophils % (Manual) 1 % (0-2) Band Neutrophils 0 % (0-8) Platelet Estimate Decreased Platelet Morphology Normal Hypochromasia 4+ Anisocytosis 1+ Spherocytes 2+ Sodium Level 143 MMOL/L (136-145) Potassium Level 3.1 MMOL/L (3.5-5.1) Chloride Level 107 MMOL/L (98-107) Carbon Dioxide Level 30 MMOL/L (21-32) Anion Gap 6 mmol/L (5-15) Blood Urea Nitrogen 15 mg/dL (7-18) Creatinine 0.4 MG/DL (0.55-1.30) Estimat Glomerular Filtration Rate > 60 mL/min (>60) Glucose Level 129 MG/DL (74-106) Calcium Level 7.5 MG/DL (8.5-10.1) Phosphorus Level 2.6 MG/DL (2.5-4.9) Magnesium Level 1.6 MG/DL (1.8-2.4) Total Bilirubin 0.2 MG/DL (0.2-1.0) Aspartate Amino Transf (AST/SGOT) 18 U/L (15-37) Alanine Aminotransferase (ALT/SGPT) 15 U/L (12-78) Alkaline Phosphatase 93 U/L (46-116) Total Protein 3.9 G/DL (6.4-8.2) Albumin 1.1 G/DL (3.4-5.0) Globulin 2.8 g/dL Albumin/Globulin Ratio 0.4 (1.0-2.7) Test 03/03/20 17:55 03/04/20 00:01 03/04/20 04:15 03/04/20 05:11 White Blood Count 2.7 K/UL (4.8-10.8) Red Blood Count 2.93 M/UL (4.20-5.40) Hemoglobin 9.0 G/DL (12.0-16.0) Hematocrit 25.6 % (37.0-47.0) Mean Corpuscular Volume 87 FL (80-99) Mean Corpuscular Hemoglobin 30.6 PG (27.0-31.0) Mean Corpuscular Hemoglobin Concent 35.1 G/DL (32.0-36.0) Red Cell Distribution Width 12.7 % (11.6-14.8) Platelet Count 22 K/UL (150-450) Mean Platelet Volume 14.0 FL (6.5-10.1) Neutrophils (%) (Auto) % (45.0-75.0) Lymphocytes (%) (Auto) % (20.0-45.0) Monocytes (%) (Auto) % (1.0-10.0) Eosinophils (%) (Auto) % (0.0-3.0) Basophils (%) (Auto) % (0.0-2.0) Differential Total Cells Counted 100 Neutrophils % (Manual) 34 % (45-75) Lymphocytes % (Manual) 47 % (20-45) Monocytes % (Manual) 16 % (1-10) Eosinophils % (Manual) 0 % (0-3) Basophils % (Manual) 0 % (0-2) Band Neutrophils 3 % (0-8) Platelet Estimate Decreased Platelet Morphology Normal Hypochromasia 3+ Anisocytosis 1+ Spherocytes 1+ Sodium Level 139 MMOL/L (136-145) Potassium Level 3.7 MMOL/L (3.5-5.1) Chloride Level 107 MMOL/L (98-107) Carbon Dioxide Level 26 MMOL/L (21-32) Anion Gap 6 mmol/L (5-15) Blood Urea Nitrogen 16 mg/dL (7-18) Creatinine 0.4 MG/DL (0.55-1.30) Estimat Glomerular Filtration Rate > 60 mL/min (>60) Glucose Level 160 MG/DL (74-106) Calcium Level 7.5 MG/DL (8.5-10.1) Phosphorus Level 2.4 MG/DL (2.5-4.9) Magnesium Level 2.1 MG/DL (1.8-2.4) Total Bilirubin 0.4 MG/DL (0.2-1.0) Aspartate Amino Transf (AST/SGOT) 26 U/L (15-37) Alanine Aminotransferase (ALT/SGPT) 18 U/L (12-78) Alkaline Phosphatase 120 U/L (46-116) Total Protein 4.1 G/DL (6.4-8.2) Albumin 1.0 G/DL (3.4-5.0) Globulin 3.1 g/dL Albumin/Globulin Ratio 0.3 (1.0-2.7) POC Whole Blood Glucose 139 MG/DL (74-106) Test 03/05/20 07:15 03/05/20 09:15 03/05/20 11:55 Sodium Level 142 MMOL/L (136-145) Potassium Level 4.7 MMOL/L (3.5-5.1) Chloride Level 110 MMOL/L (98-107) Carbon Dioxide Level 25 MMOL/L (21-32) Anion Gap 7 mmol/L (5-15) Blood Urea Nitrogen 17 mg/dL (7-18) Creatinine 0.3 MG/DL (0.55-1.30) Estimat Glomerular Filtration Rate > 60 mL/min (>60) Glucose Level 125 MG/DL (74-106) Calcium Level 7.2 MG/DL (8.5-10.1) Phosphorus Level 4.2 MG/DL (2.5-4.9) Magnesium Level 1.8 MG/DL (1.8-2.4) White Blood Count 7.4 K/UL (4.8-10.8) Red Blood Count 2.87 M/UL (4.20-5.40) Hemoglobin 8.6 G/DL (12.0-16.0) Hematocrit 24.2 % (37.0-47.0) Mean Corpuscular Volume 84 FL (80-99) Mean Corpuscular Hemoglobin 30.0 PG (27.0-31.0) Mean Corpuscular Hemoglobin Concent 35.6 G/DL (32.0-36.0) Red Cell Distribution Width 12.8 % (11.6-14.8) Platelet Count 15 K/UL (150-450) Mean Platelet Volume 10.4 FL (6.5-10.1) Neutrophils (%) (Auto) % (45.0-75.0) Lymphocytes (%) (Auto) % (20.0-45.0) Monocytes (%) (Auto) % (1.0-10.0) Eosinophils (%) (Auto) % (0.0-3.0) Basophils (%) (Auto) % (0.0-2.0) Height (Feet): 5 Height (Inches): 4.00 Weight (Pounds): 113 Objective General: NAD HEENT: nc, at Neck: supple Chest: clear breath sounds bilaterally Cardiovascular: RRR, no s3, s4 Abdomen: soft, nontender, nd, ++surgical site noted, c/d/i, healing ++ Extremities: no cce, normal range of motion Neuro: alert and oriented Gustavo Mon MD Mar 05, 2020 13:58
--- NOTE | 2020-03-05 15:00 | NUR ---
NURSE NOTES: Platelet transfusion started at 1445, no reaction observed after 15mins.
--- NOTE | 2020-03-05 15:14 | NUR ---
NURSE NOTES: Pharmacy made aware that Zosyn will be administered when platelet transfusion is done.
[2020-03-05 16:00] VITALS: BP 119/73
--- NOTE | 2020-03-05 17:18 | Cardiac Electrophysiology PN ---
Assessment/Plan Assessment/Plan 1. Nonsustained VT 5 beats. No recurrence after hypokalemia corrected. EF 55%. On iv metoprolol 2.5 mg q 12 2. Sinus tach and anemia better on Metoprolol 2.5 iv bid and after PRBC 3. Bowel obstruction. S/P ex lap, left colectomy, mobilization of splenic flexure by Dr Brito, CT abdomen Free fluid seen in the abdomen and pelvis with multiple fluid- filled loops of small and large bowel which may be associated with ileus or enteritis without focal transition point. Lung bases appear worse from the prior exam. Increased free fluid within the abdomen. FU Gi and surgery. On Clear liquid diet 4. Hypokalemia replaced with iv K and Mg. 5. PVCs and dizziness 6. Anemia with Hb 6.9. s/p PRBC 02/26/20 again. S/P CT abdomen and pelvis DW RN Subjective Subjective No more VT since the 5 beats of VT on 02/21/20. In NSR on Lopressor 2.5 iv bid. NPO on TPN and Lipids. Very weak and confused. Got platelet transfusion. Objective Last 24 Hour Vital Signs Date Time Temp Pulse Resp B/P (MAP) Pulse Ox O2 Delivery O2 Flow Rate FiO2 03/05/20 16:00 98.2 109 18 119/73 (88) 96 03/05/20 15:34 109 03/05/20 12:00 97.7 100 18 120/66 (84) 96 03/05/20 11:41 108 03/05/20 10:17 111 124/60 03/05/20 10:06 111 03/05/20 09:00 Room Air 03/05/20 08:00 97.5 116 18 124/60 (81) 92 03/05/20 04:00 108 03/05/20 04:00 97.8 109 15 107/62 (77) 100 03/05/20 00:00 105 03/05/20 00:00 98.1 107 15 124/67 (86) 100 03/04/20 21:00 Room Air 03/04/20 21:00 101 103/68 03/04/20 20:00 107 03/04/20 20:00 98.1 71 15 103/68 (80) 99 Intake and Output 10/3/20 10/4/20 19:00 07:00 Output Total 1000 ml 1500 ml Balance -1000 ml -1500 ml Output Urine Total 800 ml 500 ml Stool Total 200 ml 1000 ml Laboratory Tests Test 03/05/20 07:15 03/05/20 09:15 03/05/20 11:55 Sodium Level 142 MMOL/L (136-145) Potassium Level 4.7 MMOL/L (3.5-5.1) Chloride Level 110 MMOL/L (98-107) H Carbon Dioxide Level 25 MMOL/L (21-32) Anion Gap 7 mmol/L (5-15) Blood Urea Nitrogen 17 mg/dL (7-18) Creatinine 0.3 MG/DL (0.55-1.30) L Estimat Glomerular Filtration Rate > 60 mL/min (>60) Glucose Level 125 MG/DL (74-106) H Calcium Level 7.2 MG/DL (8.5-10.1) L Phosphorus Level 4.2 MG/DL (2.5-4.9) Magnesium Level 1.8 MG/DL (1.8-2.4) White Blood Count 7.4 K/UL (4.8-10.8) Red Blood Count 2.87 M/UL (4.20-5.40) L Hemoglobin 8.6 G/DL (12.0-16.0) L Hematocrit 24.2 % (37.0-47.0) L Mean Corpuscular Volume 84 FL (80-99) Mean Corpuscular Hemoglobin 30.0 PG (27.0-31.0) Mean Corpuscular Hemoglobin Concent 35.6 G/DL (32.0-36.0) Red Cell Distribution Width 12.8 % (11.6-14.8) Platelet Count 15 K/UL (150-450) L Mean Platelet Volume 10.4 FL (6.5-10.1) H Neutrophils (%) (Auto) % (45.0-75.0) Lymphocytes (%) (Auto) % (20.0-45.0) Monocytes (%) (Auto) % (1.0-10.0) Eosinophils (%) (Auto) % (0.0-3.0) Basophils (%) (Auto) % (0.0-2.0) Differential Total Cells Counted 100 Neutrophils % (Manual) 42 % (45-75) L Lymphocytes % (Manual) 33 % (20-45) Monocytes % (Manual) 13 % (1-10) H Eosinophils % (Manual) 1 % (0-3) Basophils % (Manual) 0 % (0-2) Band Neutrophils 11 % (0-8) H Nucleated Red Blood Cells 27 /100 WBC Platelet Estimate Decreased L Platelet Morphology Normal Hypochromasia 2+ Anisocytosis 1+ POC Whole Blood Glucose Pending Objective HEENT: No JVD Cardiovascular: RSR. No GRM Respiratory: clear Abdomen: soft, non-tender. Jessica intact with no drain Extremities: no edema, no tenderness, no cyanosis Peter Quintana MD Mar 05, 2020 17:18
--- NOTE | 2020-03-05 19:40 | NUR ---
NURSE NOTES: Patient received from RYANN Hutchins. Patient is sleeping but easily aroused, patient is A/O x2. Patient is on nasal cannula at 2 L. Patient has a rectal tube, patent and draining. Patient has a tomas size 16, patent and well draining. Patient has a PICC on her right upper arm. No signs of current distress. Bed is in the lowest position, call light within reach. Will continue to monitor.
--- NOTE | 2020-03-05 19:44 | NUR ---
NURSE HAND-OFF REPORT: Important Events on Shift: 1 unit of platelets Patient Status: stable Diet: NPO Pending Orders: Pending Results/Labs: Pending MD notification: Latest Vital Signs: Temperature 98.2 , Pulse 109 , B/P 119 /73 , Respiratory Rate 18 , O2 SAT 96 , Room Air, O2 Flow Rate 2.0 . Vital Sign Comment: EKG Rhythm: Sinus Tachycardia Rhythm change?: N MD Notified?: N - MD Response: Latest Scherer Fall Score: 20 Fall Risk: Low Risk Safety Measures: Call light Within Reach, Bed Alarm Zone 2, Side Rails Side Rails x3, Bed position Low and Locked. Fall Precautions: Yellow Socks Yellow Gown Door Sign Patient Fall Education Report given to RYANN Sin
[2020-03-05 20:00] VITALS: BP 126/71
[2020-03-05] MEDS: Dyna-Hex 2% Top Sol 2oz TOPIC SCH (20:00)
[2020-03-05] MEDS: D5NS w/KCl 40mEq 1000ml 1,000 ML IV SCH (20:00)
[2020-03-05] MEDS: DEXTROSE IV SCH ×2 (20:03)
[2020-03-05] MEDS: AMINO ACIDS IV SCH ×2 (20:03)
[2020-03-05] MEDS: FAT EMULSION IV SCH ×2 (20:03)
[2020-03-06] VITALS (16 sets, daily range): BP systolic 111–145; BP diastolic 57–89
--- NOTE | 2020-03-06 03:00 | NUR ---
NURSE NOTES: Patient wound dressing in the areas of concern were change.
[2020-03-06] MEDS: NovoLOG Insulin Flexpen SUBQ SCH ×4 (06:00→23:37)
[2020-03-06] MEDS: Piperacillin/Tazobactam 3.375 GM in NS 110 ML IVPB SCH ×4 (06:09→22:25)
--- NOTE | 2020-03-06 06:23 | General Progress Note ---
Subjective ROS Limited/Unobtainable: No Allergies: Coded Allergies: No Known Allergies (Unverified , 02/15/20) Objective Last 24 Hour Vital Signs Date Time Temp Pulse Resp B/P (MAP) Pulse Ox O2 Delivery O2 Flow Rate FiO2 03/06/20 04:00 98.4 109 18 129/71 (90) 100 03/06/20 04:00 114 03/06/20 00:38 105 03/06/20 00:00 98.1 105 15 125/65 (85) 100 03/05/20 21:12 102 126/71 03/05/20 21:00 Room Air 03/05/20 20:00 97.9 102 18 126/71 (89) 95 03/05/20 20:00 103 03/05/20 16:00 98.2 109 18 119/73 (88) 96 03/05/20 15:34 109 03/05/20 12:00 97.7 100 18 120/66 (84) 96 03/05/20 11:41 108 03/05/20 10:17 111 124/60 03/05/20 10:06 111 03/05/20 09:00 Room Air 03/05/20 08:00 97.5 116 18 124/60 (81) 92 Intake and Output 03/05/20 03/06/20 19:00 07:00 Output Total 500 ml Balance -500 ml Output Urine Total 500 ml Laboratory Tests 03/05/20 06:35: POC Whole Blood Glucose [Pending] 03/05/20 07:15: Sodium Level 142, Potassium Level 4.7, Chloride Level 110H, Carbon Dioxide Level 25, Anion Gap 7, Blood Urea Nitrogen 17, Creatinine 0.3L, Estimat Glomerular Filtration Rate > 60, Glucose Level 125H, Calcium Level 7.2L, Phosphorus Level 4.2, Magnesium Level 1.8 03/05/20 09:15: White Blood Count 7.4, Red Blood Count 2.87L, Hemoglobin 8.6L, Hematocrit 24.2L, Mean Corpuscular Volume 84, Mean Corpuscular Hemoglobin 30.0, Mean Corpuscular Hemoglobin Concent 35.6, Red Cell Distribution Width 12.8, Platelet Count 15L, Mean Platelet Volume 10.4H, Neutrophils (%) (Auto) , Lymphocytes (%) (Auto) , Monocytes (%) (Auto) , Eosinophils (%) (Auto) , Basophils (%) (Auto) , Differential Total Cells Counted 100, Neutrophils % (Manual) 42L, Lymphocytes % (Manual) 33, Monocytes % (Manual) 13H, Eosinophils % (Manual) 1, Basophils % (Manual) 0, Band Neutrophils 11H, Nucleated Red Blood Cells 27, Platelet Estimate DecreasedL, Platelet Morphology Normal, Hypochromasia 2+, Anisocytosis 1+ 03/05/20 11:55: POC Whole Blood Glucose [Pending] 03/05/20 17:25: POC Whole Blood Glucose [Pending] 03/05/20 23:35: POC Whole Blood Glucose 145H Height (Feet): 5 Height (Inches): 4.00 Weight (Pounds): 113 General Appearance: mild distress EENT: normal ENT inspection Neck: supple Cardiovascular: normal rate Respiratory/Chest: decreased breath sounds Abdomen: hypoactive bowel sounds, tender Assessment/Plan Problem List: (1) Large bowel obstruction ICD Codes: K56.609 - Unspecified intestinal obstruction, unspecified as to partial versus complete obstruction SNOMED: 899623877 (2) Hypokalemia ICD Codes: E87.6 - Hypokalemia SNOMED: 13899966 (3) Lightheaded ICD Codes: R42 - Dizziness and giddiness SNOMED: 831539855 (4) Pancytopenia ICD Codes: D61.818 - Other pancytopenia SNOMED: 527098093 (5) Colon cancer ICD Codes: C18.9 - Malignant neoplasm of colon, unspecified SNOMED: 856686698 Status: stable Assessment/Plan: colon cancer with bowel obstruction s/p resection s/p plt transfusion on TPN NPO abx per ID fu hem recs fu surg recs Graeme Hirsch MD Mar 06, 2020 06:23
--- NOTE | 2020-03-06 06:33 | Hematology/Onc Progress Note ---
Assessment/Plan Assessment/Plan Assessment and Recs # Stage IV adenocarcinoma of the colon - biopsy report shows pT3, N2b, M1, lesion with omental metastasis, tumor markers reviewed, just cea 8.5, as well as ct a/p reviewed --> operative report reviewed, per surg, surg ws 02/21/2020 --> currently functional status very poor, at this time hold off further rx in re to chemo --> tumor markers ordered, reviewed, only cea elev --> Ct a/p reviewed, no sig mets on scan, but does have omental mets, does show pneumoperitoneum --> if functional status improves consider single agent PO drug xeloda and if improves further FOLFOX (combo) # Thrombocytopenia - potential causes multifactorial, evaluate liver and viral etiologies to begin, severe and acute, did get heparin --> lactic acid 2.6, r/o sepsis, likely consumptive process --> Hep panel and HIV neg, HIT is negative too --> ct a/p reviewed --> Peripheral smear ordered to evaluate for blasts /schistocytes -->does not show any --> abx and other meds have been reviewed --> transfuse to keep plt >20k --> meds reviewed --> plt 212-->30-->18->8-->15 --> DIC panel has been ordered--> elev lactic acid 4.8-> is wnl --> ABX zosyn --> transfuse 2 units 10/ # Large bowel obstruction --> due to above cancer --> s/p surg # Malnutrition --> s/p tpn # Hypokalemia --> replete with k # PALMER --> hypovolemic, now improved # Dvt ppx scds The timing of this note does not necessarily reflect the time of the patient was seen. Greatly appreciate consultation. Subjective Cardiovascular: Denies: no symptoms, chest pain, edema, irregular heart rate, lightheadedness, palpitations, syncope, other Respiratory: Denies: no symptoms, cough, shortness of breath, SOB with excertion, SOB at rest, sputum, wheezing, other Gastrointestinal/Abdominal: Denies: no symptoms, abdomen distended, abdominal pain, black stools, tarry stools, blood in stool, constipated, diarrhea, difficulty swallowing, nausea, poor appetite, poor fluid intake, rectal bleeding, vomiting, other Neurologic/Psychiatric: Denies: no symptoms, anxiety, depressed, emotional problems, headache, numbness, paresthesia, pre-existing deficit, seizure, tingling, tremors, weakness, other Endocrine: Denies: no symptoms, excessive sweating, flushing, intolerance to cold, intolerance to heat, increased hunger, increased thirst, increased urine, unexplained weight gain, unexplained weight loss, other Hematologic/Lymphatic: Denies: no symptoms, anemia, easy bleeding, easy bruising, adenopathy, other Allergies: Coded Allergies: No Known Allergies (Unverified , 02/15/20) Subjective 02/28 asleep no bleeding, pending tumor markers, with decreased po intake 03/01 more awake dw RN at bedside this am, lactic acid remains elev, start on zosyn stat 03/02 is calm, comfortable, labs noted, tumor markers reviewed, no bm 03/03 labs reviewed, not eating much, imaging noted, new path results noted 03/05 dw rn in am, plt 15, will get 1 unit plts, no bleeding, path noted again 03/06 fatigued this am, labs pending, no major changes, was given plts yest per rn Objective Objective Current Medications Medications (Trade) Dose Ordered Sig/Fozia Route PRN Reason Start Time Stop Time Status Last Admin Dose Admin Acetaminophen (Tylenol) 650 mg Q6H PRN ORAL Mild Pain (Pain Scale 1-3) 02/18/20 17:15 03/19/20 17:14 Chlorhexidine Gluconate (Gail-Hex 2%) 1 applic DAILY@1999 TOPIC 02/25/20 20:00 05/25/20 19:59 03/05/20 20:00 Dextrose 1,000 ml @ 0 mls/hr Q24H PRN IV PN interrupted or unavailable 02/29/20 20:00 03/30/20 19:59 Dextrose (Dextrose 50%) 25 ml Q30M PRN IV Hypoglycemia 03/01/20 23:59 05/30/20 23:58 Dextrose (Dextrose 50%) 50 ml Q30M PRN IV Hypoglycemia 02/29/20 23:59 05/29/20 23:58 Dextrose/ Electrolytes 1,000 ml @ 31 mls/hr Q24H IV 02/29/20 20:00 03/30/20 19:59 03/05/20 20:00 Diphenhydramine HCl (Benadryl) 12.5 mg Q6H PRN IVP Itching/Pruritis 02/18/20 17:15 03/19/20 17:14 Fat Emulsion Intravenous 216 ml/Amino Acids/ Electrolytes/ Dextrose 1,656 ml @ 69 mls/hr Q24H IV 02/29/20 20:00 03/30/20 19:59 03/05/20 20:03 Insulin Aspart (NovoLOG) Q6HR SUBQ 03/01/20 00:00 05/30/20 00:00 03/05/20 23:40 Meclizine HCl (Antivert) 25 mg TID PRN ORAL for dizziness 02/20/20 20:30 03/21/20 20:29 Metoprolol Tartrate 2.5 mg/ Dextrose 57.5 ml @ 130 mls/hr EVERY 12 HOURS IVPB 03/03/20 21:00 04/02/20 20:59 03/05/20 21:12 Ondansetron HCl (Zofran) 4 mg Q6H PRN IVP Nausea & Vomiting 02/18/20 17:15 03/19/20 17:14 Phytonadione (Vitamin K) 10 mg ONCE A WEEK SUBQ 03/07/20 09:00 06/05/20 08:59 Piperacillin Sod/ Tazobactam Sod 3.375 gm/Sodium Chloride 110 ml @ 27.5 mls/hr EVERY 8 HOURS IVPB 03/01/20 14:00 03/07/20 23:59 03/06/20 06:09 Promethazine HCl 50 mg/Sodium Chloride 111 ml @ 222 mls/hr Q6H PRN IVPB for dizziness 02/20/20 20:45 03/21/20 20:44 02/20/20 21:42 Last 24 Hour Vital Signs Date Time Temp Pulse Resp B/P (MAP) Pulse Ox O2 Delivery O2 Flow Rate FiO2 03/06/20 04:00 98.4 109 18 129/71 (90) 100 03/06/20 04:00 114 03/06/20 00:38 105 03/06/20 00:00 98.1 105 15 125/65 (85) 100 03/05/20 21:12 102 126/71 03/05/20 21:00 Room Air 03/05/20 20:00 97.9 102 18 126/71 (89) 95 03/05/20 20:00 103 03/05/20 16:00 98.2 109 18 119/73 (88) 96 03/05/20 15:34 109 03/05/20 12:00 97.7 100 18 120/66 (84) 96 03/05/20 11:41 108 03/05/20 10:17 111 124/60 03/05/20 10:06 111 03/05/20 09:00 Room Air 03/05/20 08:00 97.5 116 18 124/60 (81) 92 03/05/20 04:00 108 03/05/20 04:00 97.8 109 15 107/62 (77) 100 03/05/20 00:00 105 03/05/20 00:00 98.1 107 15 124/67 (86) 100 03/04/20 21:00 Room Air 03/04/20 21:00 101 103/68 03/04/20 20:00 107 03/04/20 20:00 98.1 71 15 103/68 (80) 99 03/04/20 16:00 107 03/04/20 16:00 97.9 111 20 112/65 (81) 94 03/04/20 12:00 106 03/04/20 12:00 97.0 108 19 121/58 (79) 99 03/04/20 09:00 Room Air 03/04/20 08:22 105 108/57 03/04/20 08:00 97.9 105 17 108/57 (74) 91 03/04/20 08:00 107 Intake and Output 03/05/20 03/06/20 19:00 07:00 Output Total 500 ml Balance -500 ml Output Urine Total 500 ml Labs Test 03/03/20 17:55 03/04/20 00:01 03/04/20 04:15 03/04/20 05:11 White Blood Count 2.7 K/UL (4.8-10.8) Red Blood Count 2.93 M/UL (4.20-5.40) Hemoglobin 9.0 G/DL (12.0-16.0) Hematocrit 25.6 % (37.0-47.0) Mean Corpuscular Volume 87 FL (80-99) Mean Corpuscular Hemoglobin 30.6 PG (27.0-31.0) Mean Corpuscular Hemoglobin Concent 35.1 G/DL (32.0-36.0) Red Cell Distribution Width 12.7 % (11.6-14.8) Platelet Count 22 K/UL (150-450) Mean Platelet Volume 14.0 FL (6.5-10.1) Neutrophils (%) (Auto) % (45.0-75.0) Lymphocytes (%) (Auto) % (20.0-45.0) Monocytes (%) (Auto) % (1.0-10.0) Eosinophils (%) (Auto) % (0.0-3.0) Basophils (%) (Auto) % (0.0-2.0) Differential Total Cells Counted 100 Neutrophils % (Manual) 34 % (45-75) Lymphocytes % (Manual) 47 % (20-45) Monocytes % (Manual) 16 % (1-10) Eosinophils % (Manual) 0 % (0-3) Basophils % (Manual) 0 % (0-2) Band Neutrophils 3 % (0-8) Platelet Estimate Decreased Platelet Morphology Normal Hypochromasia 3+ Anisocytosis 1+ Spherocytes 1+ Sodium Level 139 MMOL/L (136-145) Potassium Level 3.7 MMOL/L (3.5-5.1) Chloride Level 107 MMOL/L (98-107) Carbon Dioxide Level 26 MMOL/L (21-32) Anion Gap 6 mmol/L (5-15) Blood Urea Nitrogen 16 mg/dL (7-18) Creatinine 0.4 MG/DL (0.55-1.30) Estimat Glomerular Filtration Rate > 60 mL/min (>60) Glucose Level 160 MG/DL (74-106) Calcium Level 7.5 MG/DL (8.5-10.1) Phosphorus Level 2.4 MG/DL (2.5-4.9) Magnesium Level 2.1 MG/DL (1.8-2.4) Total Bilirubin 0.4 MG/DL (0.2-1.0) Aspartate Amino Transf (AST/SGOT) 26 U/L (15-37) Alanine Aminotransferase (ALT/SGPT) 18 U/L (12-78) Alkaline Phosphatase 120 U/L (46-116) Total Protein 4.1 G/DL (6.4-8.2) Albumin 1.0 G/DL (3.4-5.0) Globulin 3.1 g/dL Albumin/Globulin Ratio 0.3 (1.0-2.7) POC Whole Blood Glucose 139 MG/DL (74-106) Test 03/05/20 00:09 03/05/20 06:35 03/05/20 07:15 03/05/20 09:15 POC Whole Blood Glucose 116 MG/DL (74-106) Sodium Level 142 MMOL/L (136-145) Potassium Level 4.7 MMOL/L (3.5-5.1) Chloride Level 110 MMOL/L (98-107) Carbon Dioxide Level 25 MMOL/L (21-32) Anion Gap 7 mmol/L (5-15) Blood Urea Nitrogen 17 mg/dL (7-18) Creatinine 0.3 MG/DL (0.55-1.30) Estimat Glomerular Filtration Rate > 60 mL/min (>60) Glucose Level 125 MG/DL (74-106) Calcium Level 7.2 MG/DL (8.5-10.1) Phosphorus Level 4.2 MG/DL (2.5-4.9) Magnesium Level 1.8 MG/DL (1.8-2.4) White Blood Count 7.4 K/UL (4.8-10.8) Red Blood Count 2.87 M/UL (4.20-5.40) Hemoglobin 8.6 G/DL (12.0-16.0) Hematocrit 24.2 % (37.0-47.0) Mean Corpuscular Volume 84 FL (80-99) Mean Corpuscular Hemoglobin 30.0 PG (27.0-31.0) Mean Corpuscular Hemoglobin Concent 35.6 G/DL (32.0-36.0) Red Cell Distribution Width 12.8 % (11.6-14.8) Platelet Count 15 K/UL (150-450) Mean Platelet Volume 10.4 FL (6.5-10.1) Neutrophils (%) (Auto) % (45.0-75.0) Lymphocytes (%) (Auto) % (20.0-45.0) Monocytes (%) (Auto) % (1.0-10.0) Eosinophils (%) (Auto) % (0.0-3.0) Basophils (%) (Auto) % (0.0-2.0) Differential Total Cells Counted 100 Neutrophils % (Manual) 42 % (45-75) Lymphocytes % (Manual) 33 % (20-45) Monocytes % (Manual) 13 % (1-10) Eosinophils % (Manual) 1 % (0-3) Basophils % (Manual) 0 % (0-2) Band Neutrophils 11 % (0-8) Nucleated Red Blood Cells 27 /100 WBC Platelet Estimate Decreased Platelet Morphology Normal Hypochromasia 2+ Anisocytosis 1+ Test 03/05/20 11:55 03/05/20 17:25 03/05/20 23:35 03/06/20 06:26 POC Whole Blood Glucose 145 MG/DL (74-106) 131 MG/DL (74-106) Height (Feet): 5 Height (Inches): 4.00 Weight (Pounds): 113 Objective General: NAD HEENT: nc, at Neck: supple Chest: clear breath sounds bilaterally Cardiovascular: RRR, no s3, s4 Abdomen: soft, nontender, nd, ++surgical site noted, c/d/i, healing ++ Extremities: no cce, normal range of motion Neuro: alert and oriented Gustavo Mon MD Mar 06, 2020 06:33
--- NOTE | 2020-03-06 07:24 | NUR ---
NURSE HAND-OFF REPORT: Important Events on Shift:[] Patient Status: [] Diet: [NPO. Patient is on TPN] Pending Orders: [] Pending Results/Labs:[] Pending MD notification:[] Latest Vital Signs: Temperature 98.4 , Pulse 109 , B/P 129 /71 , Respiratory Rate 18 , O2 SAT 100 , Room Air, O2 Flow Rate 2.0 . Vital Sign Comment: [] EKG Rhythm: Sinus Tachycardia Rhythm change?: N MD Notified?: N - MD Response: Latest Scherer Fall Score: 20 Fall Risk: Low Risk Safety Measures: Call light Within Reach, Bed Alarm Zone 2, Side Rails Side Rails x3, Bed position Low and Locked. Fall Precautions: Yellow Socks Yellow Gown Door Sign Patient Fall Education Report given to [RYANN Benito].
--- NOTE | 2020-03-06 07:30 | NUR ---
NURSE NOTES: Pt received from RYANN Sin. Pt in bed, resting, awake but disoriented. Rectal tube and tomas running. TPN, electrolytes and antibiotic also running on PICC right upper arm. No sign of distress. Bed low and locked. Call light within reach.
[2020-03-06 09:20] LABS: HEMATOCRIT 25.2 % (37.0-47.0); HEMOGLOBIN 8.9 G/DL (12.0-16.0); MEAN CORPUSCULAR VOLUME 86 FL (80-99); PLATELET COUNT 50 K/UL (150-450); RED BLOOD COUNT 2.94 M/UL (4.20-5.40); RED CELL DISTRIBUTION WIDTH 13.1 % (11.6-14.8); WHITE BLOOD COUNT 11.3 K/UL (4.8-10.8)
[2020-03-06 09:53] LABS: ALANINE AMINOTRANSFERASE 25 U/L (12-78); ALBUMIN 1.1 G/DL (3.4-5.0); ALBUMIN/GLOBULIN RATIO 0.3 (1.0-2.7); ALKALINE PHOSPHATASE 179 U/L (46-116); ANION GAP 6 mmol/L (5-15); ASPARTATE AMINO TRANSFERASE 32 U/L (15-37); BILIRUBIN,TOTAL 0.4 MG/DL (0.2-1.0); BLOOD UREA NITROGEN 14 mg/dL (7-18); CARBON DIOXIDE 26 MMOL/L (21-32); CHLORIDE 109 MMOL/L (98-107); CREATININE 0.5 MG/DL (0.55-1.30); PHOSPHORUS 3.5 MG/DL (2.5-4.9); POTASSIUM 3.2 MMOL/L (3.5-5.1); SODIUM 141 MMOL/L (136-145); TRIGLYCERIDES 137 MG/DL (30-150)
--- NOTE | 2020-03-06 10:08 | Nephrology Progress Note ---
Assessment/Plan Plan #Severe hypokalemia #Abdominal distention - bowel obstruction due to colonic mass- s/p resection #lactic acidosis #htn #Dehydration #HLD - s/p resection - ivf - npo - TPN - replete lyres - monitor lactic acidic level - replete K, elvi mag - check vitamin D level - IVF- switch to D5NS + 40 kcl - replete K, mag and phos prn - NPO - monitor lytes - avoid nephrotoxins - gen surg eval Subjective ROS Limited/Unobtainable: No Constitutional: Reports: weakness HEENT: Denies: no symptoms, eye pain, blurred vision, tearing, double vision, ear pain, ear discharge, nose pain, nose congestion, throat pain, throat swelling, mouth pain, mouth swelling, other Genitourinary: Denies: no symptoms, burning, discharge, frequency, flank pain, hematuria, incontinence, pain, urgency, other Neurologic/Psychiatric: Denies: no symptoms, anxiety, depressed, emotional problems, headache, numbness, paresthesia, pre-existing deficit, seizure, tingling, tremors, weakness, other Subjective s/p resection CT with mets to omentum Appears comfortable labs reviewed K and mag low -> will replete no nausea or emsis Objective Objective Last 24 Hour Vital Signs Date Time Temp Pulse Resp B/P (MAP) Pulse Ox O2 Delivery O2 Flow Rate FiO2 03/06/20 04:00 98.4 109 18 129/71 (90) 100 03/06/20 04:00 114 03/06/20 00:38 105 03/06/20 00:00 98.1 105 15 125/65 (85) 100 03/05/20 21:12 102 126/71 03/05/20 21:00 Room Air 03/05/20 20:00 97.9 102 18 126/71 (89) 95 03/05/20 20:00 103 03/05/20 16:00 98.2 109 18 119/73 (88) 96 03/05/20 15:34 109 03/05/20 12:00 97.7 100 18 120/66 (84) 96 03/05/20 11:41 108 03/05/20 10:17 111 124/60 Intake and Output 03/05/20 03/06/20 19:00 07:00 Output Total 500 ml 1000 ml Balance -500 ml -1000 ml Output Urine Total 500 ml 1000 ml Laboratory Tests 03/05/20 11:55: POC Whole Blood Glucose [Pending] 03/05/20 17:25: POC Whole Blood Glucose [Pending] 03/05/20 23:35: POC Whole Blood Glucose 145H 03/06/20 06:26: POC Whole Blood Glucose 131H 03/06/20 08:45: White Blood Count 11.3#H, Red Blood Count 2.94L, Hemoglobin 8.9L, Hematocrit 25.2L, Mean Corpuscular Volume 86, Mean Corpuscular Hemoglobin 30.4, Mean Corpuscular Hemoglobin Concent 35.4, Red Cell Distribution Width 13.1, Platelet Count 50#L, Mean Platelet Volume 9.1, Neutrophils (%) (Auto) , Lymphocytes (%) (Auto) , Monocytes (%) (Auto) , Eosinophils (%) (Auto) , Basophils (%) (Auto) , Neutrophils % (Manual) [Pending], Lymphocytes % (Manual) [Pending], Platelet Estimate [Pending], Platelet Morphology [Pending], Sodium Level 141, Potassium Level 3.2L, Chloride Level 109H, Carbon Dioxide Level 26, Anion Gap 6, Blood Urea Nitrogen 14, Creatinine 0.5#L, Estimat Glomerular Filtration Rate > 60, Glucose Level 151H, Calcium Level 8.0L, Phosphorus Level 3.5, Magnesium Level 1.6L, Total Bilirubin 0.4, Aspartate Amino Transf (AST/SGOT) 32, Alanine Aminotransferase (ALT/SGPT) 25, Alkaline Phosphatase 179H, Total Protein 4.9L, Albumin 1.1L, Globulin 3.8, Albumin/Globulin Ratio 0.3L, Triglycerides Level 137 Height (Feet): 5 Height (Inches): 4.00 Weight (Pounds): 113 Yakelin Arnett M.D. Mar 06, 2020 10:08
[2020-03-06] MEDS: Metoprolol Tartrate 2.5 MG in D5W 55 ML IVPB SCH ×2 (10:27→20:34)
--- NOTE | 2020-03-06 10:45 | Pulmonology Progress Note ---
Subjective ROS Limited/Unobtainable: No Interval Events: S/p colectomy; followed by surgery Constitutional: Reports: no symptoms HEENT: Repors: no symptoms Respiratory: Reports: no symptoms Cardiovascular: Reports: no symptoms Gastrointestinal/Abdominal: Reports: constipation, bloating Genitourinary: Reports: no symptoms Allergies: Coded Allergies: No Known Allergies (Unverified , 02/15/20) Objective Last 24 Hour Vital Signs Date Time Temp Pulse Resp B/P (MAP) Pulse Ox O2 Delivery O2 Flow Rate FiO2 03/06/20 10:27 124 126/72 03/06/20 08:00 97.4 124 25 126/72 (90) 100 03/06/20 08:00 120 03/06/20 04:00 98.4 109 18 129/71 (90) 100 03/06/20 04:00 114 03/06/20 00:38 105 03/06/20 00:00 98.1 105 15 125/65 (85) 100 03/05/20 21:12 102 126/71 03/05/20 21:00 Room Air 03/05/20 20:00 97.9 102 18 126/71 (89) 95 03/05/20 20:00 103 03/05/20 16:00 98.2 109 18 119/73 (88) 96 03/05/20 15:34 109 03/05/20 12:00 97.7 100 18 120/66 (84) 96 03/05/20 11:41 108 Intake and Output 03/05/20 03/06/20 19:00 07:00 Output Total 500 ml 1000 ml Balance -500 ml -1000 ml Output Urine Total 500 ml 1000 ml General Appearance: no acute distress HEENT: normocephalic Respiratory: chest wall non-tender, lungs clear Cardiovascular: normal peripheral pulses Abdomen: non distended, absent bowel sounds Laboratory Tests 03/05/20 11:55: POC Whole Blood Glucose [Pending] 03/05/20 17:25: POC Whole Blood Glucose [Pending] 03/05/20 23:35: POC Whole Blood Glucose 145H 03/06/20 06:26: POC Whole Blood Glucose 131H 03/06/20 08:45: White Blood Count 11.3#H, Red Blood Count 2.94L, Hemoglobin 8.9L, Hematocrit 25.2L, Mean Corpuscular Volume 86, Mean Corpuscular Hemoglobin 30.4, Mean Corpuscular Hemoglobin Concent 35.4, Red Cell Distribution Width 13.1, Platelet Count 50#L, Mean Platelet Volume 9.1, Neutrophils (%) (Auto) , Lymphocytes (%) (Auto) , Monocytes (%) (Auto) , Eosinophils (%) (Auto) , Basophils (%) (Auto) , Neutrophils % (Manual) [Pending], Lymphocytes % (Manual) [Pending], Platelet Estimate [Pending], Platelet Morphology [Pending], Sodium Level 141, Potassium Level 3.2L, Chloride Level 109H, Carbon Dioxide Level 26, Anion Gap 6, Blood Urea Nitrogen 14, Creatinine 0.5#L, Estimat Glomerular Filtration Rate > 60, Glucose Level 151H, Calcium Level 8.0L, Phosphorus Level 3.5, Magnesium Level 1.6L, Total Bilirubin 0.4, Aspartate Amino Transf (AST/SGOT) 32, Alanine Aminotransferase (ALT/SGPT) 25, Alkaline Phosphatase 179H, Total Protein 4.9L, Albumin 1.1L, Globulin 3.8, Albumin/Globulin Ratio 0.3L, Triglycerides Level 137 Current Medications Medications (Trade) Dose Ordered Sig/Fozia Route PRN Reason Start Time Stop Time Status Last Admin Dose Admin Acetaminophen (Tylenol) 650 mg Q6H PRN ORAL Mild Pain (Pain Scale 1-3) 02/18/20 17:15 03/19/20 17:14 Chlorhexidine Gluconate (Gail-Hex 2%) 1 applic DAILY@2000 TOPIC 02/25/20 20:00 05/25/20 19:59 03/05/20 20:00 Dextrose 1,000 ml @ 0 mls/hr Q24H PRN IV PN interrupted or unavailable 02/29/20 20:00 03/30/20 19:59 Dextrose (Dextrose 50%) 25 ml Q30M PRN IV Hypoglycemia 03/01/20 23:59 05/30/20 23:58 Dextrose (Dextrose 50%) 50 ml Q30M PRN IV Hypoglycemia 02/29/20 23:59 05/29/20 23:58 Dextrose/ Electrolytes 1,000 ml @ 31 mls/hr Q24H IV 02/29/20 20:00 03/30/20 19:59 03/05/20 20:00 Diphenhydramine HCl (Benadryl) 12.5 mg Q6H PRN IVP Itching/Pruritis 02/18/20 17:15 03/19/20 17:14 Fat Emulsion Intravenous 216 ml/Amino Acids/ Electrolytes/ Dextrose 1,656 ml @ 69 mls/hr Q24H IV 02/29/20 20:00 03/30/20 19:59 03/05/20 20:03 Insulin Aspart (NovoLOG) Q6HR SUBQ 03/01/20 00:00 05/30/20 00:00 03/05/20 23:40 Magnesium Sulfate 100 ml @ 100 mls/hr Q1H IVPB 03/06/20 11:00 03/06/20 13:59 Meclizine HCl (Antivert) 25 mg TID PRN ORAL for dizziness 02/20/20 20:30 03/21/20 20:29 Metoprolol Tartrate 2.5 mg/ Dextrose 57.5 ml @ 130 mls/hr EVERY 12 HOURS IVPB 03/03/20 21:00 04/02/20 20:59 03/06/20 10:27 Ondansetron HCl (Zofran) 4 mg Q6H PRN IVP Nausea & Vomiting 02/18/20 17:15 03/19/20 17:14 Phytonadione (Vitamin K) 10 mg ONCE A WEEK SUBQ 03/07/20 09:00 06/05/20 08:59 Piperacillin Sod/ Tazobactam Sod 3.375 gm/Sodium Chloride 110 ml @ 27.5 mls/hr EVERY 8 HOURS IVPB 03/01/20 14:00 03/07/20 23:59 03/06/20 06:09 Potassium Chloride 100 ml @ 50 mls/hr Q2H IVPB 03/06/20 11:00 03/06/20 14:59 Promethazine HCl 50 mg/Sodium Chloride 111 ml @ 222 mls/hr Q6H PRN IVPB for dizziness 02/20/20 20:45 03/21/20 20:44 02/20/20 21:42 Assessment/Plan Assessment/Plan IMPRESSION: 1. S/p laparotomy 2. Severe hypokalemia. Corrected 3. Hypertension. 4. Diuretic use. DISCUSSION: Replaced potassium. S/P laparotomy I will continue to follow carefully. Await return of bowel fxn GI and renal following Saturating well on RA/nasal o2 Hanna Cline Omar Syed MD Mar 06, 2020 10:45
[2020-03-06] MEDS: KCl 20mEq 100ml Premix IVPB SCH ×2 (10:52→13:00)
--- NOTE | 2020-03-06 13:00 | NUR ---
NURSE NOTES: Pt saturation dropped to 80's. Called RT and applied non rebreather mask at 15Liters. Notified Dr. Brito and got order for stat chest xray. Notified changes to Dr. Zacarias and got order for venous duplex bilateral lower ex.
--- NOTE | 2020-03-06 13:09 | NUR ---
RD ASSESSMENT & RECOMMENDATIONS SEE CARE ACTIVITY FOR COMPLETE ASSESSMENT DAILY ESTIMATED NEEDS: Needs based on GI, surgery, cancer 50.4kg 25-35 kcals/kg 9575-7749 total kcals 1-2 g protein/kg 50-100 g total protein 25-35ml/kcal mL/kg 2070-0450 total fluid mLs NUTRITION DIAGNOSIS: Altered GI fxn r/t bowel obstruction as evidenced by CT scan, last bm unknown, adm w/ distended abdomen, N/V w/ recent poor po intake, s/p ex lap, left colectomy and partial omentectomy, previously on CLD w/ poor intake, now NPO, on TPN. CURRENT DIET:npo PO DIET RECOMMENDATIONS: Per PARENTERAL NUTRITION RECOMMENDATIONS: D/AA Rate: 60 IL Rate: 9 Total Rate: 69 Volume: 1656 % Dextrose: 16 % AA: 5.4 Energy (kcals/kg): 1526 Protein (g/kg protein): 78 Nonprotein KCALS: 1264 GIR (mg CHO/kg/min): 3.2 % Fat KCALS: 28 NCP: N Ratio: 97:1 TPN Comment: TPN currently based on initial bed scale wt of 50.4kg, now currently at 74.9kg w/ P200 mattress, w/ adj wt of 62.9kg. - D16%, AA 5.4% @60ml/hr + IL 20% @9ml.hr-> total of 69ml/hr, all 3:1. - Maintain at goal rate. - GIR<5 - IL <30% ADDITIONAL RECOMMENDATIONS: 1) Monitor NPO status-> on TPN Rec recalibrated bed scale wts s/p floor transfer 2) Monitor lytes, replete as needed-> low K and mag 3) Calibrated bedscale wt- w/ added p200 mattress and SCDs w/ pumps 4) W/ TPN: monitor BG, Lytes, and LFT's. 5) F/up w/ WC eval .
--- NOTE | 2020-03-06 13:49 | NUR ---
CASE MANAGEMENT: REVIEW SI: COLON CA . LARGE BOWEL OBSTRUCTION . HYPOKALEMIA . S/P EX LAP LEFT COLECTOMY T 98.1 HR 124 RR 25 BP 125/65 SAT 100% NC/3L WBC 11.3 H/H 8.9/25.2 BLAST CELLS% 2 K 3.2 GLUCOSE 175 IS: VITAMIN K SUBQ ONCE A WK D5 NS w/KCl 40 MEQ IVF @ Q24HR ZOSYN IV Q8HR TPN Q24HR TELEMETRY UNIT STATUS DCP: PATIENT IS FROM HOME
--- NOTE | 2020-03-06 14:03 | Surgery Progress Note ---
Surgery Progress Note Subjective Procedure Performed ex lap left colectomy mobilization of splenic flexure omentectomy primary anastomosis Additional Comments noted to be desaturating this AM on face mask pending cxr rectal tube with liquid output transfused plt now 50k no active bleeding cbc noted ill appearing prognosis guarded Objective Last 24 Hour Vital Signs Date Time Temp Pulse Resp B/P (MAP) Pulse Ox O2 Delivery O2 Flow Rate FiO2 03/06/20 10:27 124 126/72 03/06/20 09:00 Nasal Cannula 3.0 03/06/20 08:00 97.4 124 25 126/72 (90) 100 03/06/20 08:00 120 03/06/20 04:00 98.4 109 18 129/71 (90) 100 03/06/20 04:00 114 03/06/20 00:38 105 03/06/20 00:00 98.1 105 15 125/65 (85) 100 03/05/20 21:12 102 126/71 03/05/20 21:00 Room Air 03/05/20 20:00 97.9 102 18 126/71 (89) 95 03/05/20 20:00 103 03/05/20 16:00 98.2 109 18 119/73 (88) 96 03/05/20 15:34 109 I&O Intake and Output 03/05/20 03/06/20 19:00 07:00 Output Total 500 ml 1000 ml Balance -500 ml -1000 ml Output Urine Total 500 ml 1000 ml Dressing: other Wound: other Cardiovascular: RSR Respiratory: decreased breath sounds Abdomen: soft, distended, non-tender, present bowel sounds, decreased bowel sounds Extremities: no tenderness, no cyanosis Laboratory Tests Test 03/05/20 17:25 03/05/20 23:35 03/06/20 06:26 03/06/20 08:45 POC Whole Blood Glucose Pending 145 MG/DL (74-106) H 131 MG/DL (74-106) H White Blood Count 11.3 K/UL (4.8-10.8) #H Red Blood Count 2.94 M/UL (4.20-5.40) L Hemoglobin 8.9 G/DL (12.0-16.0) L Hematocrit 25.2 % (37.0-47.0) L Mean Corpuscular Volume 86 FL (80-99) Mean Corpuscular Hemoglobin 30.4 PG (27.0-31.0) Mean Corpuscular Hemoglobin Concent 35.4 G/DL (32.0-36.0) Red Cell Distribution Width 13.1 % (11.6-14.8) Platelet Count 50 K/UL (150-450) #L Mean Platelet Volume 9.1 FL (6.5-10.1) Neutrophils (%) (Auto) % (45.0-75.0) Lymphocytes (%) (Auto) % (20.0-45.0) Monocytes (%) (Auto) % (1.0-10.0) Eosinophils (%) (Auto) % (0.0-3.0) Basophils (%) (Auto) % (0.0-2.0) Differential Total Cells Counted 100 Neutrophils % (Manual) 57 % (45-75) Lymphocytes % (Manual) 18 % (20-45) L Monocytes % (Manual) 12 % (1-10) H Eosinophils % (Manual) 0 % (0-3) Basophils % (Manual) 0 % (0-2) Metamyelocytes % 3 % (0-0) H Myelocytes % 1 % (0-0) H Blast Cells % 2 % (0-0) *H Band Neutrophils 7 % (0-8) Nucleated Red Blood Cells 14 /100 WBC Platelet Estimate Decreased L Platelet Morphology Normal Hypochromasia 2+ Spherocytes 2+ Sodium Level 141 MMOL/L (136-145) Potassium Level 3.2 MMOL/L (3.5-5.1) L Chloride Level 109 MMOL/L (98-107) H Carbon Dioxide Level 26 MMOL/L (21-32) Anion Gap 6 mmol/L (5-15) Blood Urea Nitrogen 14 mg/dL (7-18) Creatinine 0.5 MG/DL (0.55-1.30) #L Estimat Glomerular Filtration Rate > 60 mL/min (>60) Glucose Level 151 MG/DL (74-106) H Calcium Level 8.0 MG/DL (8.5-10.1) L Phosphorus Level 3.5 MG/DL (2.5-4.9) Magnesium Level 1.6 MG/DL (1.8-2.4) L Total Bilirubin 0.4 MG/DL (0.2-1.0) Aspartate Amino Transf (AST/SGOT) 32 U/L (15-37) Alanine Aminotransferase (ALT/SGPT) 25 U/L (12-78) Alkaline Phosphatase 179 U/L (46-116) H Total Protein 4.9 G/DL (6.4-8.2) L Albumin 1.1 G/DL (3.4-5.0) L Globulin 3.8 g/dL Albumin/Globulin Ratio 0.3 (1.0-2.7) L Triglycerides Level 137 MG/DL (30-150) Test 03/06/20 12:21 POC Whole Blood Glucose 175 MG/DL (74-106) H Plan Problems: (1) Lightheaded (2) Hypokalemia (3) Large bowel obstruction Assessment & Plan: 64-year-old female with abdominal distention potential large bowel obstruction. Afebrile, hemodynamic stable, labs noted no leukocytosis no pain no bleeding. No prior abdominal surgeries. Nausea and emesis clear liquid. Decreased appetite. Cannot recall last flatus or BM. CT as below. No direct mass or abnormality identified but there is absolutely identifiable transition at the rectosigmoid area with proximal dilatation. A colonoscopy is warranted but though would be with definitive risk of potential perforation. GI consult pending. Replace electrolytes. N.p.o. IV fluids will await scope for findings. Conceivably may require surgical intervention. Thank you for let me participate in patient's care will follow with recommendations GI consider for scope 02/17 will be available for surgery in case of emergency high risk for perforation or complication and understands. but strongly recommend scope prior to surgery for etiology purposes. s/p ex lap. see op report recovering okay to downgrade to tele npo okay for ice chips iv fluids abx tomas to stay in until ambulatory heparin petechia plt down hold heparin scds cont abx trend labs trial liquid diet ?air leak but afebrile, hd stable, no wbc, shift improved. needs K replacement plt trending down petechia CT pending electrolytes improved CT with mets to omentum likely was obstructed for significant period of time prior to surgery and tumor with mets. liver okay but post op she is declining. unfortunately prognosis is guarded. asked her if she wanted me to call anyone and declined ct noted. fluid and gas in colon and rectum distal to anastomosis. possible occult leak? but no fevers, no wbc, and exam without tenderness. rectal tube ordered liquid scant output tpn discussed with paul. pending labs. recommended for hospice discussed her condition and decline. unsafe for surgical intervention at this time given plt/labs/decline asked if she wanted me to discuss or call family / friends and declined declining There are several circumscribed low-density nonenhancing cysts noted in the liver. The spleen is homogeneous. Gallbladder is without sludge or stone and there is no wall thickening. The pancreas is unremarkable. Adrenals are normal in morphology. The kidneys are normal in size, shape and axis. Small bowel loops are nondistended. The dominant abnormality is severe colonic distention containing air-fluid levels and stool debris. Dilated colon extends down to the rectosigmoid junction where there is an apparent transition. The rectal vault is nondistended with only a small amount of stool. No definite discernible mass is detected there is There is no free fluid or free air. No pathologic adenopathy demonstrated. Bladder is empty. There is no suspicious superficial soft tissue or osseous abnormality. IMPRESSION: SEVERE COLONIC DISTENTION WITH AIR-FLUID LEVELS AND STOOL DEBRIS. THERE IS APPARENT TRANSITION AT THE RECTOSIGMOID JUNCTION WITH A RELATIVELY EMPTY RECTAL VAULT WITH ONLY SMALL AMOUNT OF STOOL. NO DEFINITE DISCERNIBLE MASS AT THE TRANSITION POINT. RECOMMEND GI CONSULTATION AND CONSIDER COLONOSCOPY. (4) Colon cancer Swapnil Brito Mar 06, 2020 14:03
--- NOTE | 2020-03-06 14:20 | NUR ---
NURSE NOTES: Pt pulling her non rebreather mask off. SHe then desats to 80's. Got order for bilateral soft wrist restraints from Dr. Piña. Applied, pulses present, petechia noted but present prior to applying restraints.
--- NOTE | 2020-03-06 14:55 | NUR ---
NURSE NOTES: patient was desatting, non rebreather mask applied satting 100%, pt lethargic, dr collins aware and ordered transfer to ICU and start lasix drip.
--- NOTE | 2020-03-06 14:55 | Cardiac Electrophysiology PN ---
Assessment/Plan Assessment/Plan 1. Nonsustained VT 5 beats. No recurrence after hypokalemia corrected. EF 55%. On iv metoprolol 2.5 mg q 12 2. Sinus tach and anemia better on Metoprolol 2.5 iv bid and after PRBC 3. Bowel obstruction. S/P ex lap, left colectomy, mobilization of splenic flexure by Dr Brito, CT abdomen Free fluid seen in the abdomen and pelvis with multiple fluid- filled loops of small and large bowel which may be associated with ileus or enteritis without focal transition point. Lung bases appear worse from the prior exam. Increased free fluid within the abdomen. FU Gi and surgery. On Clear liquid diet 4. Hypokalemia replaced with iv K and Mg. 5. PVCs and dizziness 6. Anemia with Hb 6.9. s/p PRBC 02/26/20 again. S/P CT abdomen and pelvis 7. Respiratory failure.On 100% NRB FM. CXR reviewed and DW Dr Zacarias. Will start Lasix drip at 10 mg/hr and transfer to ICU. May need to be intubated. Also had Right pleural effusion and likely will need thoracentesis DW RN Subjective Subjective No more VT since the 5 beats of VT on 02/21/20. In NSR on Lopressor 2.5 iv bid. NPO on TPN and Lipids. Very weak and confused. Got CXR and put on 100% NRB face Mask Objective Last 24 Hour Vital Signs Date Time Temp Pulse Resp B/P (MAP) Pulse Ox O2 Delivery O2 Flow Rate FiO2 03/06/20 10:27 124 126/72 03/06/20 09:00 Nasal Cannula 3.0 03/06/20 08:00 97.4 124 25 126/72 (90) 100 03/06/20 08:00 120 03/06/20 04:00 98.4 109 18 129/71 (90) 100 03/06/20 04:00 114 03/06/20 00:38 105 03/06/20 00:00 98.1 105 15 125/65 (85) 100 03/05/20 21:12 102 126/71 03/05/20 21:00 Room Air 03/05/20 20:00 97.9 102 18 126/71 (89) 95 03/05/20 20:00 103 03/05/20 16:00 98.2 109 18 119/73 (88) 96 03/05/20 15:34 109 Intake and Output 03/05/20 03/06/20 19:00 07:00 Output Total 500 ml 1000 ml Balance -500 ml -1000 ml Output Urine Total 500 ml 1000 ml Laboratory Tests Test 03/05/20 17:25 03/05/20 23:35 03/06/20 06:26 03/06/20 08:45 POC Whole Blood Glucose Pending 145 MG/DL (74-106) H 131 MG/DL (74-106) H White Blood Count 11.3 K/UL (4.8-10.8) #H Red Blood Count 2.94 M/UL (4.20-5.40) L Hemoglobin 8.9 G/DL (12.0-16.0) L Hematocrit 25.2 % (37.0-47.0) L Mean Corpuscular Volume 86 FL (80-99) Mean Corpuscular Hemoglobin 30.4 PG (27.0-31.0) Mean Corpuscular Hemoglobin Concent 35.4 G/DL (32.0-36.0) Red Cell Distribution Width 13.1 % (11.6-14.8) Platelet Count 50 K/UL (150-450) #L Mean Platelet Volume 9.1 FL (6.5-10.1) Neutrophils (%) (Auto) % (45.0-75.0) Lymphocytes (%) (Auto) % (20.0-45.0) Monocytes (%) (Auto) % (1.0-10.0) Eosinophils (%) (Auto) % (0.0-3.0) Basophils (%) (Auto) % (0.0-2.0) Differential Total Cells Counted 100 Neutrophils % (Manual) 57 % (45-75) Lymphocytes % (Manual) 18 % (20-45) L Monocytes % (Manual) 12 % (1-10) H Eosinophils % (Manual) 0 % (0-3) Basophils % (Manual) 0 % (0-2) Metamyelocytes % 3 % (0-0) H Myelocytes % 1 % (0-0) H Blast Cells % 2 % (0-0) *H Band Neutrophils 7 % (0-8) Nucleated Red Blood Cells 14 /100 WBC Platelet Estimate Decreased L Platelet Morphology Normal Hypochromasia 2+ Spherocytes 2+ Sodium Level 141 MMOL/L (136-145) Potassium Level 3.2 MMOL/L (3.5-5.1) L Chloride Level 109 MMOL/L (98-107) H Carbon Dioxide Level 26 MMOL/L (21-32) Anion Gap 6 mmol/L (5-15) Blood Urea Nitrogen 14 mg/dL (7-18) Creatinine 0.5 MG/DL (0.55-1.30) #L Estimat Glomerular Filtration Rate > 60 mL/min (>60) Glucose Level 151 MG/DL (74-106) H Calcium Level 8.0 MG/DL (8.5-10.1) L Phosphorus Level 3.5 MG/DL (2.5-4.9) Magnesium Level 1.6 MG/DL (1.8-2.4) L Total Bilirubin 0.4 MG/DL (0.2-1.0) Aspartate Amino Transf (AST/SGOT) 32 U/L (15-37) Alanine Aminotransferase (ALT/SGPT) 25 U/L (12-78) Alkaline Phosphatase 179 U/L (46-116) H Total Protein 4.9 G/DL (6.4-8.2) L Albumin 1.1 G/DL (3.4-5.0) L Globulin 3.8 g/dL Albumin/Globulin Ratio 0.3 (1.0-2.7) L Triglycerides Level 137 MG/DL (30-150) Test 03/06/20 12:21 POC Whole Blood Glucose 175 MG/DL (74-106) H Objective HEENT: No JVD Cardiovascular: RSR. No GRM Respiratory: Coarse Rhonchi Abdomen: Soft, non-tender. Jessica intact with no drain Extremities: 3 plus edema Peter Quintana MD Mar 06, 2020 14:55
--- NOTE | 2020-03-06 15:45 | NUR ---
NURSE NOTES: Pt positive for DVT in right popliteal . Dr. Sands notified. Per D/C SCD's. Pt transferred to ICU per Dr. Quintana. Report given to Yanci GARZON. Pt moved with 15 liters 02 on non rebreather. Pt awake but disoriented. Belongings taken and accounted for with nurse. Informed Dr. Mon and Dr. Quintana about +DVT.
--- NOTE | 2020-03-06 16:00 | NUR ---
NURSE NOTES: Pt received from RYANN Benito. Pt is AAO x 1, unable to follow commands; restless; pupils 3 mm bilaterally with sluggish rxn to light. on non-rebreather - FiO2 100% - spO2 98-99%. Lung sounds noted diminished. Pt is ST to child adolescent care (HR 120-130s) - Dr Quintana assessing pt at bedside - no new orders received at this time. Radial and dorsalis pedis pulses 2+. 3+ pitting edema noted to bilat lower extremities. Pt pending lasix gtt. Pt is NPO - abd is round, soft, with active bowel sounds to all quadrants. Rectal tube noted draining dark brown/black, liquid-like stool. F/C noted draining yellow urine. Skin alterations noted. Pt has a LADARIUS PICC with dry and intact dressing running TPN at 69 cc/hr and D5 1/2 NS with 20 meQ KCL at 31 cc/hr. Pt is on PICK REMOVER restraints. skin to both wrists intact without redness. radial pulses palpable. Belongings reviewed with RYANN Benito. Will continue to monitor pt.
--- NOTE | 2020-03-06 16:59 | NUR ---
NURSE NOTES: Pt appears calm at this time. Not observed pulling medical devices. Restraints removed.
--- NOTE | 2020-03-06 17:09 | Diagnostic Imaging Report ---
Indication: Shortness of breath Technique: One view of the chest Comparison: 02/20/2020 Findings: There is interim marked increase in bilateral infiltrates versus edema, now extensive. Right arm PICC is again demonstrated. Previously demonstrated pneumothorax is no longer evident Impression: New or increased, now extensive, bilateral infiltrates versus edema Previously demonstrated pneumoperitoneum has resolved
--- NOTE | 2020-03-06 17:16 | Diagnostic Imaging Report ---
Indication: Reason For Exam: SOB Technique: Grayscale and duplex images of the bilateral lower extremity veins Comparison: None Findings: On the right, grayscale and duplex images demonstrate thrombus within the popliteal vein. This results in absent Doppler signal and noncompressibility. The remaining right lower extremity venous segments are patent On the left, grayscale and duplex images demonstrate no evidence of intraluminal thrombus. Normal phasic Doppler waveforms, demonstrating normal augmentation response and no evidence of valvular insufficiency. Greater saphenous vein(s) and tibial veins are patent. Normal compressibility. Impression: Positive for acute popliteal deep venous thrombosis on the right Negative for left lower extremity venous thrombosis
--- NOTE | 2020-03-06 17:22 | NUR ---
INSURANCE CLINICALS/REVIEW FAXED TO [facility] FX [phone] PH [phone] OPT 1
--- NOTE | 2020-03-06 18:00 | NUR ---
NURSE NOTES: Pt repositioned. Restraints reapplied at this time. Pt persistently attempting to remove non-rebreathe mask.
--- NOTE | 2020-03-06 19:10 | NUR ---
NURSE NOTES: Pt report received from indio Payne RN. pt remains stable. pt is alert and oriented times 1, no acute change in mentation. pt is on property assessment monitor showing NSR, no acute cardiac abnormalities noted. pt is on NON re breather mask sating 99% O2, no acute resp distress noted. pt bed is low, locked, armed, call light within reach. will follow plan of care.
--- NOTE | 2020-03-06 19:18 | NUR ---
NURSE HAND-OFF REPORT: Latest Vital Signs: Temperature 98.8 , Pulse 131 , B/P 114 /69 , Respiratory Rate 31 , O2 SAT 97 , Non-Rebreather, FiO2 100%. Vital Sign Comment: EKG Rhythm: Sinus Tachycardia Rhythm change?: N Notified?: Yaneth Quintana MD Response: no new orders received Latest Scherer Fall Score: 20 Fall Risk: Low Risk Safety Measures: Call light Within Reach, Bed Alarm Zone 2, Side Rails Side Rails x3, Bed position Low and Locked. Fall Precautions: Yellow Socks Yellow Gown Door Sign Patient Fall Education Report given to Casimiro Mojica RN.
[2020-03-06] MEDS: Dyna-Hex 2% Top Sol 2oz TOPIC SCH (20:31)
[2020-03-06] MEDS: D5NS w/KCl 40mEq 1000ml 1,000 ML IV SCH (20:33)
[2020-03-06] MEDS: DEXTROSE IV SCH ×2 (20:49)
[2020-03-06] MEDS: AMINO ACIDS IV SCH ×2 (20:49)
[2020-03-06] MEDS: FAT EMULSION IV SCH ×2 (20:49)
--- NOTE | 2020-03-06 21:30 | NUR ---
NURSE NOTES: assessed pts non rebreather mask with RN Robin. pts O2 tends to de saturate to 80s without non rebreather. however, pt is stable, vital signs stable. pts O2 is 98% with resp of 20 per min.
--- NOTE | 2020-03-06 22:00 | NUR ---
NURSE NOTES: called RT LUKE to assess pt. thin clear secretions noted in pts mouth. RT Luke preformed Oral suctioning. vital signs stable. Addendum: 03/07/20 at 0002 by DAYO CATES RN WRONG PT.
[2020-03-07] VITALS (30 sets, daily range): BP systolic 102–147; BP diastolic 63–99
--- NOTE | 2020-03-07 02:39 | NUR ---
NURSE NOTES: pt turned, repositioned and cleaned. vital signs assessed and are stable.
--- NOTE | 2020-03-07 05:00 | NUR ---
NURSE NOTES: pt vital signs are assessed, vital signs stable. pt turned and repositioned. skin assessed. no acute distress at this moment, pt is asleep, resting in bed.
[2020-03-07] MEDS: Piperacillin/Tazobactam 3.375 GM in NS 110 ML IVPB SCH ×3 (05:44→21:29)
[2020-03-07] MEDS: NovoLOG Insulin Flexpen SUBQ SCH ×3 (05:45→17:17)
[2020-03-07 06:34] LABS: HEMATOCRIT 25.7 % (37.0-47.0); HEMOGLOBIN 9.1 G/DL (12.0-16.0); MEAN CORPUSCULAR VOLUME 86 FL (80-99); PLATELET COUNT 40 K/UL (150-450); RED BLOOD COUNT 2.99 M/UL (4.20-5.40); RED CELL DISTRIBUTION WIDTH 13.7 % (11.6-14.8); WHITE BLOOD COUNT 12.9 K/UL (4.8-10.8)
[2020-03-07 06:58] LABS: ALANINE AMINOTRANSFERASE 18 U/L (12-78); ALBUMIN 1.1 G/DL (3.4-5.0); ALBUMIN/GLOBULIN RATIO 0.3 (1.0-2.7); ALKALINE PHOSPHATASE 197 U/L (46-116); ANION GAP 6 mmol/L (5-15); BILIRUBIN,TOTAL 0.4 MG/DL (0.2-1.0); BLOOD UREA NITROGEN 13 mg/dL (7-18); CALCIUM 7.8 MG/DL (8.5-10.1); CARBON DIOXIDE 30 MMOL/L (21-32); CHLORIDE 105 MMOL/L (98-107); CREATININE 0.5 MG/DL (0.55-1.30); SODIUM 141 MMOL/L (136-145)
[2020-03-07 07:08] LABS: POTASSIUM 2.7 MMOL/L (3.5-5.1)
--- NOTE | 2020-03-07 07:15 | Hematology/Onc Progress Note ---
Assessment/Plan Assessment/Plan Assessment and Recs # Stage IV adenocarcinoma of the colon - biopsy report shows pT3, N2b, M1, lesion with omental metastasis, tumor markers reviewed, just cea 8.5, as well as ct a/p reviewed --> operative report reviewed, per surg, surg ws 02/21/2020 --> currently functional status very poor, at this time hold off further rx in re to chemo --> tumor markers ordered, reviewed, only cea elev --> Ct a/p reviewed, no sig mets on scan, but does have omental mets, does show pneumoperitoneum --> if functional status improves consider single agent PO drug xeloda and if improves further FOLFOX (combo) # Thrombocytopenia - potential causes multifactorial, evaluate liver and viral etiologies to begin, severe and acute, did get heparin but unlikely cause --> lactic acid 2.6, r/o sepsis, likely consumptive process --> Hep panel and HIV neg, HIT is negative too --> ct a/p reviewed --> Peripheral smear ordered to evaluate for blasts /schistocytes -->does not show any --> abx and other meds have been reviewed --> transfuse to keep plt >20k --> meds reviewed --> plt 212-->30-->18->8-->15-->12-->50-->40 --> DIC panel has been ordered--> elev lactic acid 4.8-> is wnl --> ABX zosyn --> transfuse 2 units 10/4 # Anemia of chronic disease, malignancy --> anemia panel noted --> hgb 8.9 # Large bowel obstruction --> due to above cancer --> s/p surg # Malnutrition --> s/p tpn # Hypokalemia --> replete with k # PALMER --> hypovolemic, now improved # Dvt ppx scds The timing of this note does not necessarily reflect the time of the patient was seen. Greatly appreciate consultation. Subjective Constitutional: Denies: no symptoms, chills, fever, malaise, weakness, other HEENT: Denies: no symptoms, eye pain, blurred vision, tearing, double vision, ear pain, ear discharge, nose pain, nose congestion, throat pain, throat swelling, mouth pain, mouth swelling, other Cardiovascular: Denies: no symptoms, chest pain, edema, irregular heart rate, lightheadedness, palpitations, syncope, other Gastrointestinal/Abdominal: Denies: no symptoms, abdomen distended, abdominal pain, black stools, tarry stools, blood in stool, constipated, diarrhea, difficulty swallowing, nausea, poor appetite, poor fluid intake, rectal bleeding, vomiting, other Neurologic/Psychiatric: Denies: no symptoms, anxiety, depressed, emotional problems, headache, numbness, paresthesia, pre-existing deficit, seizure, tingling, tremors, weakness, other Endocrine: Denies: no symptoms, excessive sweating, flushing, intolerance to cold, intolerance to heat, increased hunger, increased thirst, increased urine, unexplained weight gain, unexplained weight loss, other Allergies: Coded Allergies: No Known Allergies (Unverified , 02/15/20) Subjective 02/28 asleep no bleeding, pending tumor markers, with decreased po intake 03/01 more awake dw RN at bedside this am, lactic acid remains elev, start on zosyn stat 03/02 is calm, comfortable, labs noted, tumor markers reviewed, no bm 03/03 labs reviewed, not eating much, imaging noted, new path results noted 03/05 dw rn in am, plt 15, will get 1 unit plts, no bleeding, path noted again 03/06 fatigued this am, labs pending, no major changes, was given plts yest per rn 03/07 fatigued on nonrebreather this am, k was given per rn critically low, labs noted Objective Objective Current Medications Medications (Trade) Dose Ordered Sig/Fozia Route PRN Reason Start Time Stop Time Status Last Admin Dose Admin Acetaminophen (Tylenol) 650 mg Q6H PRN ORAL Mild Pain (Pain Scale 1-3) 02/18/20 17:15 03/19/20 17:14 Chlorhexidine Gluconate (Gail-Hex 2%) 1 applic DAILY@1999 TOPIC 02/25/20 20:00 05/25/20 19:59 03/06/20 20:31 Dextrose 1,000 ml @ 0 mls/hr Q24H PRN IV PN interrupted or unavailable 02/29/20 20:00 03/30/20 19:59 Dextrose (Dextrose 50%) 25 ml Q30M PRN IV Hypoglycemia 03/01/20 23:59 05/30/20 23:58 Dextrose (Dextrose 50%) 50 ml Q30M PRN IV Hypoglycemia 02/29/20 23:59 05/29/20 23:58 Dextrose/ Electrolytes 1,000 ml @ 31 mls/hr Q24H IV 02/29/20 20:00 03/30/20 19:59 03/06/20 20:33 Diphenhydramine HCl (Benadryl) 12.5 mg Q6H PRN IVP Itching/Pruritis 02/18/20 17:15 03/19/20 17:14 Fat Emulsion Intravenous 216 ml/Amino Acids/ Electrolytes/ Dextrose 1,656 ml @ 69 mls/hr Q24H IV 02/29/20 20:00 03/30/20 19:59 03/06/20 20:49 Furosemide 100 mg/ Dextrose 100 ml @ 10 mls/hr Q10H IV 03/06/20 16:00 04/05/20 15:59 03/07/20 01:48 Insulin Aspart (NovoLOG) Q6HR SUBQ 03/01/20 00:00 05/30/20 00:00 03/07/20 05:45 Meclizine HCl (Antivert) 25 mg TID PRN ORAL for dizziness 02/20/20 20:30 03/21/20 20:29 Metoprolol Tartrate 2.5 mg/ Dextrose 57.5 ml @ 130 mls/hr EVERY 12 HOURS IVPB 03/03/20 21:00 04/02/20 20:59 03/06/20 20:34 Ondansetron HCl (Zofran) 4 mg Q6H PRN IVP Nausea & Vomiting 02/18/20 17:15 03/19/20 17:14 Phytonadione (Vitamin K) 10 mg ONCE A WEEK SUBQ 03/07/20 09:00 06/05/20 08:59 Piperacillin Sod/ Tazobactam Sod 3.375 gm/Sodium Chloride 110 ml @ 27.5 mls/hr EVERY 8 HOURS IVPB 03/01/20 14:00 03/07/20 23:59 03/07/20 05:44 Promethazine HCl 50 mg/Sodium Chloride 111 ml @ 222 mls/hr Q6H PRN IVPB for dizziness 02/20/20 20:45 03/21/20 20:44 9/20/20 21:42 Last 24 Hour Vital Signs Date Time Temp Pulse Resp B/P (MAP) Pulse Ox O2 Delivery O2 Flow Rate FiO2 03/07/20 06:00 124 34 135/75 (95) 98 03/07/20 05:30 119 26 125/73 (90) 97 03/07/20 05:00 121 32 139/81 (100) 98 03/07/20 04:30 121 27 128/74 (92) 97 03/07/20 04:00 98.3 122 33 120/78 (92) 98 03/07/20 04:00 Non-Rebreather Non-Rebreather 03/07/20 04:00 120 03/07/20 03:30 120 32 120/77 (91) 98 03/07/20 03:00 128 30 135/99 (111) 97 03/07/20 02:30 120 32 134/85 (101) 97 03/07/20 02:00 117 27 121/81 (94) 96 03/07/20 01:30 122 33 117/73 (88) 96 03/07/20 01:00 118 27 147/80 (102) 97 03/07/20 00:30 121 29 128/83 (98) 97 03/07/20 00:00 119 03/07/20 00:00 127 30 131/89 (103) 95 03/07/20 00:00 Non-Rebreather Non-Rebreather 03/07/20 00:00 137 03/06/20 23:00 121 31 111/68 (82) 96 03/06/20 22:30 122 30 119/69 (86) 97 03/06/20 22:00 115 29 131/87 (102) 95 03/06/20 21:30 120 23 123/57 (79) 77 03/06/20 21:00 120 26 119/80 (93) 95 03/06/20 20:34 130 122/89 03/06/20 20:30 132 23 122/89 (100) 95 03/06/20 20:00 98.3 133 27 120/81 (94) 94 03/06/20 20:00 Non-Rebreather Non-Rebreather 03/06/20 19:00 131 31 114/69 (84) 97 03/06/20 18:00 130 33 131/84 (100) 95 03/06/20 17:00 126 37 131/81 (98) 98 03/06/20 16:24 129 36 137/89 (105) 99 03/06/20 16:00 125 03/06/20 16:00 Non-Rebreather 03/06/20 16:00 98.8 127 39 128/76 (93) 100 03/06/20 12:00 130 03/06/20 12:00 98.4 124 25 145/82 (103) 100 03/06/20 10:27 124 126/72 03/06/20 09:00 Nasal Cannula 3.0 03/06/20 08:00 97.4 124 25 126/72 (90) 100 03/06/20 08:00 120 03/06/20 04:00 98.4 109 18 129/71 (90) 100 03/06/20 04:00 114 03/06/20 00:38 105 03/06/20 00:00 98.1 105 15 125/65 (85) 100 03/05/20 21:12 102 126/71 03/05/20 21:00 Room Air 03/05/20 20:00 97.9 102 18 126/71 (89) 95 03/05/20 20:00 103 03/05/20 16:00 98.2 109 18 119/73 (88) 96 03/05/20 15:34 109 03/05/20 12:00 97.7 100 18 120/66 (84) 96 03/05/20 11:41 108 03/05/20 10:17 111 124/60 03/05/20 10:06 111 03/05/20 09:00 Room Air 03/05/20 08:00 97.5 116 18 124/60 (81) 92 Intake and Output 03/06/20 03/07/20 19:00 07:00 Intake Total 476.0 ml 1641.0 ml Output Total 1000 ml 1130 ml Balance -524.0 ml 511.0 ml IV Total 476.0 ml 1641.0 ml Output Urine Total 700 ml 1100 ml Stool Total 300 ml 30 ml Labs Test 03/05/20 00:09 03/05/20 06:35 03/05/20 07:15 03/05/20 09:15 POC Whole Blood Glucose 116 MG/DL (74-106) Sodium Level 142 MMOL/L (136-145) Potassium Level 4.7 MMOL/L (3.5-5.1) Chloride Level 110 MMOL/L (98-107) Carbon Dioxide Level 25 MMOL/L (21-32) Anion Gap 7 mmol/L (5-15) Blood Urea Nitrogen 17 mg/dL (7-18) Creatinine 0.3 MG/DL (0.55-1.30) Estimat Glomerular Filtration Rate > 60 mL/min (>60) Glucose Level 125 MG/DL (74-106) Calcium Level 7.2 MG/DL (8.5-10.1) Phosphorus Level 4.2 MG/DL (2.5-4.9) Magnesium Level 1.8 MG/DL (1.8-2.4) White Blood Count 7.4 K/UL (4.8-10.8) Red Blood Count 2.87 M/UL (4.20-5.40) Hemoglobin 8.6 G/DL (12.0-16.0) Hematocrit 24.2 % (37.0-47.0) Mean Corpuscular Volume 84 FL (80-99) Mean Corpuscular Hemoglobin 30.0 PG (27.0-31.0) Mean Corpuscular Hemoglobin Concent 35.6 G/DL (32.0-36.0) Red Cell Distribution Width 12.8 % (11.6-14.8) Platelet Count 15 K/UL (150-450) Mean Platelet Volume 10.4 FL (6.5-10.1) Neutrophils (%) (Auto) % (45.0-75.0) Lymphocytes (%) (Auto) % (20.0-45.0) Monocytes (%) (Auto) % (1.0-10.0) Eosinophils (%) (Auto) % (0.0-3.0) Basophils (%) (Auto) % (0.0-2.0) Differential Total Cells Counted 100 Neutrophils % (Manual) 42 % (45-75) Lymphocytes % (Manual) 33 % (20-45) Monocytes % (Manual) 13 % (1-10) Eosinophils % (Manual) 1 % (0-3) Basophils % (Manual) 0 % (0-2) Band Neutrophils 11 % (0-8) Nucleated Red Blood Cells 27 /100 WBC Platelet Estimate Decreased Platelet Morphology Normal Hypochromasia 2+ Anisocytosis 1+ Test 03/05/20 11:55 03/05/20 17:25 03/05/20 23:35 03/06/20 06:26 POC Whole Blood Glucose 145 MG/DL (74-106) 131 MG/DL (74-106) Test 03/06/20 08:45 03/06/20 12:21 03/06/20 15:52 03/06/20 23:32 White Blood Count 11.3 K/UL (4.8-10.8) Red Blood Count 2.94 M/UL (4.20-5.40) Hemoglobin 8.9 G/DL (12.0-16.0) Hematocrit 25.2 % (37.0-47.0) Mean Corpuscular Volume 86 FL (80-99) Mean Corpuscular Hemoglobin 30.4 PG (27.0-31.0) Mean Corpuscular Hemoglobin Concent 35.4 G/DL (32.0-36.0) Red Cell Distribution Width 13.1 % (11.6-14.8) Platelet Count 50 K/UL (150-450) Mean Platelet Volume 9.1 FL (6.5-10.1) Neutrophils (%) (Auto) % (45.0-75.0) Lymphocytes (%) (Auto) % (20.0-45.0) Monocytes (%) (Auto) % (1.0-10.0) Eosinophils (%) (Auto) % (0.0-3.0) Basophils (%) (Auto) % (0.0-2.0) Differential Total Cells Counted 100 Neutrophils % (Manual) 57 % (45-75) Lymphocytes % (Manual) 18 % (20-45) Monocytes % (Manual) 12 % (1-10) Eosinophils % (Manual) 0 % (0-3) Basophils % (Manual) 0 % (0-2) Metamyelocytes % 3 % (0-0) Myelocytes % 1 % (0-0) Blast Cells % 2 % (0-0) Band Neutrophils 7 % (0-8) Nucleated Red Blood Cells 14 /100 WBC Platelet Estimate Decreased Platelet Morphology Normal Hypochromasia 2+ Spherocytes 2+ Sodium Level 141 MMOL/L (136-145) Potassium Level 3.2 MMOL/L (3.5-5.1) Chloride Level 109 MMOL/L (98-107) Carbon Dioxide Level 26 MMOL/L (21-32) Anion Gap 6 mmol/L (5-15) Blood Urea Nitrogen 14 mg/dL (7-18) Creatinine 0.5 MG/DL (0.55-1.30) Estimat Glomerular Filtration Rate > 60 mL/min (>60) Glucose Level 151 MG/DL (74-106) Calcium Level 8.0 MG/DL (8.5-10.1) Phosphorus Level 3.5 MG/DL (2.5-4.9) Magnesium Level 1.6 MG/DL (1.8-2.4) Total Bilirubin 0.4 MG/DL (0.2-1.0) Aspartate Amino Transf (AST/SGOT) 32 U/L (15-37) Alanine Aminotransferase (ALT/SGPT) 25 U/L (12-78) Alkaline Phosphatase 179 U/L (46-116) Total Protein 4.9 G/DL (6.4-8.2) Albumin 1.1 G/DL (3.4-5.0) Globulin 3.8 g/dL Albumin/Globulin Ratio 0.3 (1.0-2.7) Triglycerides Level 137 MG/DL (30-150) POC Whole Blood Glucose 175 MG/DL (74-106) Arterial Blood pH 7.471 (7.350-7.450) Arterial Blood Partial Pressure CO2 37.6 mmHg (35.0-45.0) Arterial Blood Partial Pressure O2 117.3 mmHg (75.0-100.0) Arterial Blood HCO3 26.8 mmol/L (22.0-26.0) Arterial Blood Oxygen Saturation 97.4 % (95-100) Arterial Blood Base Excess 3.0 (-2-2) Duong Test Positive Test 03/07/20 04:46 White Blood Count 12.9 K/UL (4.8-10.8) Red Blood Count 2.99 M/UL (4.20-5.40) Hemoglobin 9.1 G/DL (12.0-16.0) Hematocrit 25.7 % (37.0-47.0) Mean Corpuscular Volume 86 FL (80-99) Mean Corpuscular Hemoglobin 30.5 PG (27.0-31.0) Mean Corpuscular Hemoglobin Concent 35.6 G/DL (32.0-36.0) Red Cell Distribution Width 13.7 % (11.6-14.8) Platelet Count 40 K/UL (150-450) Mean Platelet Volume 8.4 FL (6.5-10.1) Neutrophils (%) (Auto) % (45.0-75.0) Lymphocytes (%) (Auto) % (20.0-45.0) Monocytes (%) (Auto) % (1.0-10.0) Eosinophils (%) (Auto) % (0.0-3.0) Basophils (%) (Auto) % (0.0-2.0) Sodium Level 141 MMOL/L (136-145) Potassium Level 2.7 MMOL/L (3.5-5.1) Chloride Level 105 MMOL/L (98-107) Carbon Dioxide Level 30 MMOL/L (21-32) Anion Gap 6 mmol/L (5-15) Blood Urea Nitrogen 13 mg/dL (7-18) Creatinine 0.5 MG/DL (0.55-1.30) Estimat Glomerular Filtration Rate > 60 mL/min (>60) Glucose Level 141 MG/DL (74-106) Calcium Level 7.8 MG/DL (8.5-10.1) Total Bilirubin 0.4 MG/DL (0.2-1.0) Alanine Aminotransferase (ALT/SGPT) 18 U/L (12-78) Alkaline Phosphatase 197 U/L (46-116) Total Protein 4.5 G/DL (6.4-8.2) Albumin 1.1 G/DL (3.4-5.0) Globulin 3.4 g/dL Albumin/Globulin Ratio 0.3 (1.0-2.7) Height (Feet): 5 Height (Inches): 4.00 Weight (Pounds): 113 Objective General: NAD HEENT: nc, at Neck: supple Chest:dec breath sounds bilaterally, FM++ Cardiovascular: RRR, no s3, s4 Abdomen: soft, nontender, nd, ++surgical site noted, c/d/i, healing ++ Extremities: no cce, normal range of motion Neuro: alert and oriented Gustavo Mon MD Mar 07, 2020 07:15
--- NOTE | 2020-03-07 07:20 | NUR ---
NURSE HAND-OFF REPORT: Latest Vital Signs: Temperature 98.3 , Pulse 121 , B/P 112 /72 , Respiratory Rate 33 , O2 SAT 98 , Non-Rebreather, O2 Flow Rate 3.0 . Vital Sign Comment: [STABLE] EKG Rhythm: Sinus Tachycardia Rhythm change?: N MD Notified?: Y -Dr. Lilian NEGRO Response: Latest Scherer Fall Score: 20 Fall Risk: Low Risk Safety Measures: Call light Within Reach, Bed Alarm Zone 2, Side Rails Side Rails x3, Bed position Low and Locked. Fall Precautions: Yellow Socks Yellow Gown Door Sign Patient Fall Education Report given to [PAIGE GARZON].
--- NOTE | 2020-03-07 07:21 | NUR ---
NURSE NOTES: Pt received from Casimiro Mojica RN. Pt is AAO x 1, unable to follow commands; asleep; pupils 3 mm bilaterally with sluggish rxn to light. on non-rebreather - FiO2 100% - spO2 98-99%. Lung sounds noted diminished. 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 Radial and dorsalis pedis pulses 2+. 2 + pitting edema noted to bilat lower extremities (markedly improved since initiation of lasix gtt). Pt is NPO - abd is round, soft, with active bowel sounds to all quadrants. Rectal tube noted draining dark brown/black, liquid-like stool. F/C noted draining yellow, clear urine. Skin alterations noted. Pt has a LADARIUS PICC with dry and intact dressing running TPN at 69 cc/hr and D5 1/2 NS with 20 meQ KCL at 31 cc/hr. 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 skin to both wrists intact without redness. radial pulses palpable. No acute distress noted. Will continue to monitor.
--- NOTE | 2020-03-07 07:30 | NUR ---
NURSE NOTES: Dr Mon assessing pt at bedside. all labs for today reviewed. (PLT trend noted). order placed for vitamin K subcut and potassium replacement. Addendum: 03/07/20 at 1636 by Yanci Washington RN NURSE NOTES: Amendment: Dr Mon assessing pt at bedside. all labs for today reviewed. (PLT trend noted). order placed potassium replacement.
--- NOTE | 2020-03-07 08:00 | NUR ---
NURSE NOTES: Pt repositioned; oral care provided.
[2020-03-07 08:51] LABS: % IRON SATURATION 34 % (15-50); IRON 41 ug/dL (50-175); TOTAL IRON BINDING CAPACITY 120 ug/dL (250-450)
[2020-03-07 08:56] LABS: ASPARTATE AMINO TRANSFERASE 36 U/L (15-37)
[2020-03-07] MEDS ORDERED: Phytonadione 10 mg/mL 1ml amp SUBQ SCH (09:00)
[2020-03-07] MEDS: Metoprolol Tartrate 2.5 MG in D5W 55 ML IVPB SCH ×2 (09:05→21:30)
--- NOTE | 2020-03-07 09:30 | NUR ---
NURSE NOTES: Pt seen by Dr Deann Blount reviewed.
[2020-03-07 09:40] LABS: FERRITIN 1373 NG/ML (8-388)
--- NOTE | 2020-03-07 10:00 | NUR ---
NURSE NOTES: Pt repositioned. Seen by Dr Brito.
--- NOTE | 2020-03-07 10:48 | NUR ---
TPN Electrolyte Change T.O. from Dr. Brito: Increase potassium in TPN from 40mEq/L to 55mEq/L and increase magnesium in TPN from 4mEq/L to 6mEq/L for the bag ordered to start tonight. Note that labs tomorrow will only reflect ~8 hours of new TPN formulation being run. Allen Patrick, Pharm.D.
--- NOTE | 2020-03-07 11:46 | Pulmonology Progress Note ---
Subjective ROS Limited/Unobtainable: No Interval Events: S/p colectomy; followed by surgery; now in ICU Constitutional: Reports: no symptoms HEENT: Repors: no symptoms Respiratory: Reports: no symptoms Cardiovascular: Reports: no symptoms Gastrointestinal/Abdominal: Reports: constipation, bloating Genitourinary: Reports: no symptoms Allergies: Coded Allergies: No Known Allergies (Unverified , 02/15/20) Objective Last 24 Hour Vital Signs Date Time Temp Pulse Resp B/P (MAP) Pulse Ox O2 Delivery O2 Flow Rate FiO2 03/07/20 11:00 124 23 115/91 (99) 95 03/07/20 10:00 116 29 124/89 (101) 98 03/07/20 09:05 123 140/88 03/07/20 09:00 124 31 140/88 (105) 98 03/07/20 08:00 Non-Rebreather Non-Rebreather 03/07/20 08:00 98.2 122 33 111/75 (87) 98 03/07/20 08:00 122 03/07/20 07:00 121 33 112/72 (85) 98 03/07/20 06:00 124 34 135/75 (95) 98 03/07/20 05:30 119 26 125/73 (90) 97 03/07/20 05:00 121 32 139/81 (100) 98 03/07/20 04:30 121 27 128/74 (92) 97 03/07/20 04:00 98.3 122 33 120/78 (92) 98 03/07/20 04:00 Non-Rebreather Non-Rebreather 03/07/20 04:00 120 03/07/20 03:30 120 32 120/77 (91) 98 03/07/20 03:00 128 30 135/99 (111) 97 03/07/20 02:30 120 32 134/85 (101) 97 03/07/20 02:00 117 27 121/81 (94) 96 03/07/20 01:30 122 33 117/73 (88) 96 03/07/20 01:00 118 27 147/80 (102) 97 03/07/20 00:30 121 29 128/83 (98) 97 03/07/20 00:00 119 03/07/20 00:00 127 30 131/89 (103) 95 03/07/20 00:00 Non-Rebreather Non-Rebreather 03/07/20 00:00 137 03/06/20 23:00 121 31 111/68 (82) 96 03/06/20 22:30 122 30 119/69 (86) 97 03/06/20 22:00 115 29 131/87 (102) 95 03/06/20 21:30 120 23 123/57 (79) 77 03/06/20 21:00 120 26 119/80 (93) 95 03/06/20 20:34 130 122/89 03/06/20 20:30 132 23 122/89 (100) 95 03/06/20 20:00 98.3 133 27 120/81 (94) 94 03/06/20 20:00 Non-Rebreather Non-Rebreather 03/06/20 19:00 131 31 114/69 (84) 97 03/06/20 18:00 130 33 131/84 (100) 95 03/06/20 17:00 126 37 131/81 (98) 98 03/06/20 16:24 129 36 137/89 (105) 99 03/06/20 16:00 125 03/06/20 16:00 Non-Rebreather 03/06/20 16:00 98.8 127 39 128/76 (93) 100 03/06/20 12:00 130 03/06/20 12:00 98.4 124 25 145/82 (103) 100 Intake and Output 03/06/20 03/07/20 19:00 07:00 Intake Total 476.0 ml 1641.0 ml Output Total 1000 ml 1430 ml Balance -524.0 ml 211.0 ml IV Total 476.0 ml 1641.0 ml Output Urine Total 700 ml 1400 ml Stool Total 300 ml 30 ml General Appearance: no acute distress HEENT: normocephalic Respiratory: chest wall non-tender, lungs clear Cardiovascular: normal peripheral pulses Abdomen: non distended, absent bowel sounds Laboratory Tests 03/06/20 12:21: POC Whole Blood Glucose 175H 03/06/20 15:52: Arterial Blood pH 7.471H, Arterial Blood Partial Pressure CO2 37.6, Arterial Blood Partial Pressure O2 117.3H, Arterial Blood HCO3 26.8H, Arterial Blood Oxygen Saturation 97.4, Arterial Blood Base Excess 3.0H, Duong Test Positive 03/06/20 23:32: POC Whole Blood Glucose [Pending] 03/07/20 04:46: White Blood Count 12.9H, Red Blood Count 2.99L, Hemoglobin 9.1L, Hematocrit 25.7L, Mean Corpuscular Volume 86, Mean Corpuscular Hemoglobin 30.5, Mean Corpuscular Hemoglobin Concent 35.6, Red Cell Distribution Width 13.7, Platelet Count 40L, Mean Platelet Volume 8.4, Neutrophils (%) (Auto) , Lymphocytes (%) (Auto) , Monocytes (%) (Auto) , Eosinophils (%) (Auto) , Basophils (%) (Auto) , Differential Total Cells Counted 100, Neutrophils % (Manual) 55, Lymphocytes % (Manual) 26, Monocytes % (Manual) 7, Eosinophils % (Manual) 0, Basophils % (Manual) 0, Band Neutrophils 12H, Nucleated Red Blood Cells 10, Platelet Estimate DecreasedL, Platelet Morphology Normal, Hypochromasia 2+, Anisocytosis 1+, Sodium Level 141, Potassium Level 2.7*L, Chloride Level 105, Carbon Dioxide Level 30, Anion Gap 6, Blood Urea Nitrogen 13, Creatinine 0.5L, Estimat Glomerular Filtration Rate > 60, Glucose Level 141H, Calcium Level 7.8L, M agnesium Level 1.8, Iron Level 41L, Total Iron Binding Capacity 120L, Percent Iron Saturation 34, Unsaturated Iron Binding 79L, Ferritin 1373H, Total Bilirubin 0.4, Aspartate Amino Transf (AST/SGOT) 36, Alanine Aminotransferase (ALT/SGPT) 18, Alkaline Phosphatase 197H, Total Protein 4.5L, Albumin 1.1L, Globulin 3.4, Albumin/Globulin Ratio 0.3L Current Medications Medications (Trade) Dose Ordered Sig/Fozia Route PRN Reason Start Time Stop Time Status Last Admin Dose Admin Acetaminophen (Tylenol) 650 mg Q6H PRN ORAL Mild Pain (Pain Scale 1-3) 02/18/20 17:15 03/19/20 17:14 Chlorhexidine Gluconate (Gail-Hex 2%) 1 applic DAILY@2000 TOPIC 02/25/20 20:00 05/25/20 19:59 03/06/20 20:31 Dextrose 1,000 ml @ 0 mls/hr Q24H PRN IV PN interrupted or unavailable 02/29/20 20:00 03/30/20 19:59 Dextrose (Dextrose 50%) 25 ml Q30M PRN IV Hypoglycemia 03/01/20 23:59 05/30/20 23:58 Dextrose (Dextrose 50%) 50 ml Q30M PRN IV Hypoglycemia 02/29/20 23:59 05/29/20 23:58 Dextrose/ Electrolytes 1,000 ml @ 31 mls/hr Q24H IV 02/29/20 20:00 03/30/20 19:59 03/06/20 20:33 Diphenhydramine HCl (Benadryl) 12.5 mg Q6H PRN IVP Itching/Pruritis 02/18/20 17:15 03/19/20 17:14 Fat Emulsion Intravenous 216 ml/Amino Acids/ Electrolytes/ Dextrose 1,656 ml @ 69 mls/hr Q24H IV 02/29/20 20:00 03/07/20 19:59 03/06/20 20:49 Fat Emulsion Intravenous 216 ml/Amino Acids/ Electrolytes/ Dextrose 1,656 ml @ 69 mls/hr Q24H IV 03/07/20 20:00 04/06/20 19:59 Furosemide 100 mg/ Dextrose 100 ml @ 10 mls/hr Q10H IV 03/07/20 12:00 04/06/20 11:59 03/07/20 11:21 Insulin Aspart (NovoLOG) Q6HR SUBQ 03/01/20 00:00 05/30/20 00:00 03/07/20 05:45 Meclizine HCl (Antivert) 25 mg TID PRN ORAL for dizziness 02/20/20 20:30 03/21/20 20:29 Metoprolol Tartrate 2.5 mg/ Dextrose 57.5 ml @ 130 mls/hr EVERY 12 HOURS IVPB 03/03/20 21:00 04/02/20 20:59 03/07/20 09:05 Ondansetron HCl (Zofran) 4 mg Q6H PRN IVP Nausea & Vomiting 02/18/20 17:15 03/19/20 17:14 Phytonadione (Vitamin K) 10 mg ONCE A WEEK SUBQ 03/07/20 09:00 06/05/20 08:59 03/07/20 08:58 Piperacillin Sod/ Tazobactam Sod 3.375 gm/Sodium Chloride 110 ml @ 27.5 mls/hr EVERY 8 HOURS IVPB 03/01/20 14:00 03/07/20 23:59 03/07/20 05:44 Piperacillin Sod/ Tazobactam Sod 3.375 gm/Sodium Chloride 110 ml @ 27.5 mls/hr EVERY 8 HOURS IVPB 03/08/20 06:00 03/15/20 05:59 Potassium Chloride 100 ml @ 50 mls/hr Q2H IVPB 03/07/20 09:00 03/07/20 12:59 03/07/20 11:21 Promethazine HCl 50 mg/Sodium Chloride 111 ml @ 222 mls/hr Q6H PRN IVPB for dizziness 02/20/20 20:45 03/21/20 20:44 02/20/20 21:42 Assessment/Plan Assessment/Plan IMPRESSION: 1. S/p laparotomy 2. Severe hypokalemia. Corrected 3. Hypertension. 4. Diuretic use. DISCUSSION: Replaced potassium. S/P laparotomy I will continue to follow carefully. Await return of bowel fxn GI and renal following Saturating better on NRBM On Lasix gtt Edema decreased Hanna Cline Omar Syed MD Mar 07, 2020 11:46
--- NOTE | 2020-03-07 12:00 | NUR ---
NURSE NOTES: Pt repositioned; oral care provided. No acute distress noted at this time.
--- NOTE | 2020-03-07 12:42 | General Progress Note ---
Subjective ROS Limited/Unobtainable: No Allergies: Coded Allergies: No Known Allergies (Unverified , 02/15/20) Objective Last 24 Hour Vital Signs Date Time Temp Pulse Resp B/P (MAP) Pulse Ox O2 Delivery O2 Flow Rate FiO2 03/07/20 11:00 124 23 115/91 (99) 95 03/07/20 10:00 116 29 124/89 (101) 98 03/07/20 09:05 123 140/88 03/07/20 09:00 124 31 140/88 (105) 98 03/07/20 08:00 Non-Rebreather Non-Rebreather 03/07/20 08:00 98.2 122 33 111/75 (87) 98 03/07/20 08:00 122 03/07/20 07:00 121 33 112/72 (85) 98 03/07/20 06:00 124 34 135/75 (95) 98 03/07/20 05:30 119 26 125/73 (90) 97 03/07/20 05:00 121 32 139/81 (100) 98 03/07/20 04:30 121 27 128/74 (92) 97 03/07/20 04:00 98.3 122 33 120/78 (92) 98 03/07/20 04:00 Non-Rebreather Non-Rebreather 03/07/20 04:00 120 03/07/20 03:30 120 32 120/77 (91) 98 03/07/20 03:00 128 30 135/99 (111) 97 03/07/20 02:30 120 32 134/85 (101) 97 03/07/20 02:00 117 27 121/81 (94) 96 03/07/20 01:30 122 33 117/73 (88) 96 03/07/20 01:00 118 27 147/80 (102) 97 03/07/20 00:30 121 29 128/83 (98) 97 03/07/20 00:00 119 03/07/20 00:00 127 30 131/89 (103) 95 03/07/20 00:00 Non-Rebreather Non-Rebreather 03/07/20 00:00 137 03/06/20 23:00 121 31 111/68 (82) 96 03/06/20 22:30 122 30 119/69 (86) 97 03/06/20 22:00 115 29 131/87 (102) 95 03/06/20 21:30 120 23 123/57 (79) 77 03/06/20 21:00 120 26 119/80 (93) 95 03/06/20 20:34 130 122/89 03/06/20 20:30 132 23 122/89 (100) 95 03/06/20 20:00 98.3 133 27 120/81 (94) 94 03/06/20 20:00 Non-Rebreather Non-Rebreather 03/06/20 19:00 131 31 114/69 (84) 97 03/06/20 18:00 130 33 131/84 (100) 95 03/06/20 17:00 126 37 131/81 (98) 98 03/06/20 16:24 129 36 137/89 (105) 99 03/06/20 16:00 125 03/06/20 16:00 Non-Rebreather 03/06/20 16:00 98.8 127 39 128/76 (93) 100 Intake and Output 03/06/20 03/07/20 19:00 07:00 Intake Total 476.0 ml 1641.0 ml Output Total 1000 ml 1430 ml Balance -524.0 ml 211.0 ml IV Total 476.0 ml 1641.0 ml Output Urine Total 700 ml 1400 ml Stool Total 300 ml 30 ml Laboratory Tests 03/06/20 15:52: Arterial Blood pH 7.471H, Arterial Blood Partial Pressure CO2 37.6, Arterial Blood Partial Pressure O2 117.3H, Arterial Blood HCO3 26.8H, Arterial Blood Oxygen Saturation 97.4, Arterial Blood Base Excess 3.0H, Duong Test Positive 03/06/20 23:32: POC Whole Blood Glucose [Pending] 03/07/20 04:46: White Blood Count 12.9H, Red Blood Count 2.99L, Hemoglobin 9.1L, Hematocrit 25.7L, Mean Corpuscular Volume 86, Mean Corpuscular Hemoglobin 30.5, Mean Corpuscular Hemoglobin Concent 35.6, Red Cell Distribution Width 13.7, Platelet Count 40L, Mean Platelet Volume 8.4, Neutrophils (%) (Auto) , Lymphocytes (%) (Auto) , Monocytes (%) (Auto) , Eosinophils (%) (Auto) , Basophils (%) (Auto) , Differential Total Cells Counted 100, Neutrophils % (Manual) 55, Lymphocytes % (Manual) 26, Monocytes % (Manual) 7, Eosinophils % (Manual) 0, Basophils % (Manual) 0, Band Neutrophils 12H, Nucleated Red Blood Cells 10, Platelet Estimate DecreasedL, Platelet Morphology Normal, Hypochromasia 2+, Anisocytosis 1+, Sodium Level 141, Potassium Level 2.7*L, Chloride Level 105, Carbon Dioxide Level 30, Anion Gap 6, Blood Urea Nitrogen 13, Creatinine 0.5L, Estimat Glomerular Filtration Rate > 60, Glucose Level 141H, Calcium Level 7.8L, Magnesium Level 1.8, Iron Level 41L, Total Iron Binding Capacity 120L, Percent Iron Saturation 34, Unsaturated Iron Binding 79L, Ferritin 1373H, Total Bilirubin 0.4, Aspartate Amino Transf (AST/SGOT) 36, Alanine Aminotransferase (ALT/SGPT) 18, Alkaline Phosphatase 197H, Total Protein 4.5L, Albumin 1.1L, Globulin 3.4, Albumin/Globulin Ratio 0.3L Height (Feet): 5 Height (Inches): 4.00 Weight (Pounds): 113 General Appearance: no apparent distress EENT: normal ENT inspection Neck: supple Cardiovascular: normal rate Respiratory/Chest: decreased breath sounds Abdomen: normal bowel sounds, non tender, soft Extremities: non-tender Assessment/Plan Problem List: (1) Large bowel obstruction ICD Codes: K56.609 - Unspecified intestinal obstruction, unspecified as to partial versus complete obstruction SNOMED: 419420416 (2) Hypokalemia ICD Codes: E87.6 - Hypokalemia SNOMED: 09686516 (3) Lightheaded ICD Codes: R42 - Dizziness and giddiness SNOMED: 503685774 (4) Pancytopenia ICD Codes: D61.818 - Other pancytopenia SNOMED: 695324665 (5) Colon cancer ICD Codes: C18.9 - Malignant neoplasm of colon, unspecified SNOMED: 214598943 Status: stable Assessment/Plan: colon cancer with bowel obstruction s/p resection s/p plt transfusion on TPN NPO abx per ID fu hem recs fu surg recs transferred to icu for respiratory distress on 100 % non breather on lasix drip will Graeme Beavers MD Mar 07, 2020 12:42
--- NOTE | 2020-03-07 13:15 | Nephrology Progress Note ---
Assessment/Plan Plan #hypoxemic resp failure - on nonrebreather mask #Severe hypokalemia #Abdominal distention - bowel obstruction due to colonic mass- s/p resection #lactic acidosis #htn #Dehydration #HLD - lasix drip - on non rebreather mask - replete K today - npo - TPN - replete lytes - monitor lactic acidic level - replete K, elvi mag - check vitamin D level - IVF- switch to D5NS + 40 kcl - replete K, mag and phos prn - NPO - monitor lytes - avoid nephrotoxins - gen surg eval Subjective ROS Limited/Unobtainable: No Constitutional: Reports: weakness HEENT: Denies: no symptoms, eye pain, blurred vision, tearing, double vision, ear pain, ear discharge, nose pain, nose congestion, throat pain, throat swelling, mouth pain, mouth swelling, other Genitourinary: Denies: no symptoms, burning, discharge, frequency, flank pain, hematuria, incontinence, pain, urgency, other Neurologic/Psychiatric: Denies: no symptoms, anxiety, depressed, emotional problems, headache, numbness, paresthesia, pre-existing deficit, seizure, tingling, tremors, weakness, other Subjective worsening resp failure on nonrebreather mask started on lasix drip s/p resection CT with mets to omentum Objective Objective Last 24 Hour Vital Signs Date Time Temp Pulse Resp B/P (MAP) Pulse Ox O2 Delivery O2 Flow Rate FiO2 03/07/20 13:00 123 29 123/69 (87) 95 03/07/20 12:00 120 28 127/71 (89) 96 03/07/20 12:00 Non-Rebreather Non-Rebreather 03/07/20 12:00 121 03/07/20 11:00 124 23 115/91 (99) 95 03/07/20 10:00 116 29 124/89 (101) 98 03/07/20 09:05 123 140/88 03/07/20 09:00 124 31 140/88 (105) 98 03/07/20 08:00 Non-Rebreather Non-Rebreather 03/07/20 08:00 98.2 122 33 111/75 (87) 98 03/07/20 08:00 122 03/07/20 07:00 121 33 112/72 (85) 98 03/07/20 06:00 124 34 135/75 (95) 98 03/07/20 05:30 119 26 125/73 (90) 97 03/07/20 05:00 121 32 139/81 (100) 98 03/07/20 04:30 121 27 128/74 (92) 97 03/07/20 04:00 98.3 122 33 120/78 (92) 98 03/07/20 04:00 Non-Rebreather Non-Rebreather 03/07/20 04:00 120 03/07/20 03:30 120 32 120/77 (91) 98 03/07/20 03:00 128 30 135/99 (111) 97 03/07/20 02:30 120 32 134/85 (101) 97 03/07/20 02:00 117 27 121/81 (94) 96 03/07/20 01:30 122 33 117/73 (88) 96 03/07/20 01:00 118 27 147/80 (102) 97 03/07/20 00:30 121 29 128/83 (98) 97 03/07/20 00:00 119 03/07/20 00:00 127 30 131/89 (103) 95 03/07/20 00:00 Non-Rebreather Non-Rebreather 03/07/20 00:00 137 03/06/20 23:00 121 31 111/68 (82) 96 03/06/20 22:30 122 30 119/69 (86) 97 03/06/20 22:00 115 29 131/87 (102) 95 03/06/20 21:30 120 23 123/57 (79) 77 03/06/20 21:00 120 26 119/80 (93) 95 03/06/20 20:34 130 122/89 03/06/20 20:30 132 23 122/89 (100) 95 03/06/20 20:00 98.3 133 27 120/81 (94) 94 03/06/20 20:00 Non-Rebreather Non-Rebreather 03/06/20 19:00 131 31 114/69 (84) 97 03/06/20 18:00 130 33 131/84 (100) 95 03/06/20 17:00 126 37 131/81 (98) 98 03/06/20 16:24 129 36 137/89 (105) 99 03/06/20 16:00 125 03/06/20 16:00 Non-Rebreather 03/06/20 16:00 98.8 127 39 128/76 (93) 100 Intake and Output 03/06/20 03/07/20 19:00 07:00 Intake Total 476.0 ml 1641.0 ml Output Total 1000 ml 1430 ml Balance -524.0 ml 211.0 ml IV Total 476.0 ml 1641.0 ml Output Urine Total 700 ml 1400 ml Stool Total 300 ml 30 ml Laboratory Tests 03/06/20 15:52: Arterial Blood pH 7.471H, Arterial Blood Partial Pressure CO2 37.6, Arterial Blood Partial Pressure O2 117.3H, Arterial Blood HCO3 26.8H, Arterial Blood Oxygen Saturation 97.4, Arterial Blood Base Excess 3.0H, Duong Test Positive 03/06/20 23:32: POC Whole Blood Glucose [Pending] 03/07/20 04:46: White Blood Count 12.9H, Red Blood Count 2.99L, Hemoglobin 9.1L, Hematocrit 25.7L, Mean Corpuscular Volume 86, Mean Corpuscular Hemoglobin 30.5, Mean Corpuscular Hemoglobin Concent 35.6, Red Cell Distribution Width 13.7, Platelet Count 40L, Mean Platelet Volume 8.4, Neutrophils (%) (Auto) , Lymphocytes (%) (Auto) , Monocytes (%) (Auto) , Eosinophils (%) (Auto) , Basophils (%) (Auto) , Differential Total Cells Counted 100, Neutrophils % (Manual) 55, Lymphocytes % (Manual) 26, Monocytes % (Manual) 7, Eosinophils % (Manual) 0, Basophils % (Manual) 0, Band Neutrophils 12H, Nucleated Red Blood Cells 10, Platelet Estimate DecreasedL, Platelet Morphology Normal, Hypochromasia 2+, Anisocytosis 1+, Sodium Level 141, Potassium Level 2.7*L, Chloride Level 105, Carbon Dioxide Level 30, Anion Gap 6, Blood Urea Nitrogen 13, Creatinine 0.5L, Estimat Glomerular Filtration Rate > 60, Glucose Level 141H, Calcium Level 7.8L, Magnesium Level 1.8, Iron Level 41L, Total Iron Binding Capacity 120L, Percent Iron Saturation 34, Unsaturated Iron Binding 79L, Ferritin 1373H, Total Bilirubin 0.4, Aspartate Amino Transf (AST/SGOT) 36, Alanine Aminotransferase (ALT/SGPT) 18, Alkaline Phosphatase 197H, Total Protein 4.5L, Albumin 1.1L, Globulin 3.4, Albumin/Globulin Ratio 0.3L Height (Feet): 5 Height (Inches): 4.00 Weight (Pounds): 113 General Appearance: lethargic EENT: PERRL/EOMI Neck: non-tender, supple Cardiovascular: tachycardia, irregularly irregular Respiratory/Chest: rhonchi - bilaterally Abdomen: non tender, soft Extremities: non-tender Yakelin Arnett M.D. Mar 07, 2020 13:15
--- NOTE | 2020-03-07 14:00 | NUR ---
NURSE NOTES: Pt repositioned. no distress noted.
--- NOTE | 2020-03-07 14:58 | NUR ---
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 98.4 HR 123 RR 29 B/P 123/69 NRM O2 SAT @ 97% WBC 12.9 BANDS 12 K 2.7 IS: ZOSYN IV KCL IV LASIX GTT IVF D5KCL 2 31ML/HR TPN IV LOPRESSOR IV ICU STATUS
--- NOTE | 2020-03-07 16:00 | NUR ---
NURSE NOTES: Pt repositioned; oral care provided. Afebrile. Pt seen by Dr Lilian TOM noted. No new orders received. Will continue to monitor.
[2020-03-07 16:39] LABS: ANION GAP 10 mmol/L (5-15); BLOOD UREA NITROGEN 16 mg/dL (7-18); CALCIUM 7.3 MG/DL (8.5-10.1); CARBON DIOXIDE 30 MMOL/L (21-32); CHLORIDE 105 MMOL/L (98-107); CREATININE 0.4 MG/DL (0.55-1.30); POTASSIUM 3.2 MMOL/L (3.5-5.1); SODIUM 145 MMOL/L (136-145)
--- NOTE | 2020-03-07 16:51 | NUR ---
INSURANCE CLINICALS/REVIEW FAXED TO [facility] [phone] PH [phone] OPT 1
--- NOTE | 2020-03-07 16:51 | NUR ---
NURSE NOTES: Left message for Dr Arnett with recent BMP results. Will hang another 20 meQ KCL bag at this time. No new orders received.
--- NOTE | 2020-03-07 17:21 | Cardiac Electrophysiology PN ---
Assessment/Plan Assessment/Plan 1. Nonsustained VT 5 beats. No recurrence after hypokalemia corrected. EF 55%. On iv metoprolol 2.5 mg q 12 2. Sinus tach and anemia better on Metoprolol 2.5 iv bid and after PRBC 3. Bowel obstruction. S/P ex lap, left colectomy, mobilization of splenic flexure by Dr Brito, Gi and surgery. 4. Hypokalemia replaced with iv K and Mg. 5. PVCs and dizziness 6. Anemia with Hb 6.9. s/p PRBC 02/26/20 again. S/P CT abdomen and pelvis 7. Respiratory failure.On 100% NRB FM. CXR reviewed and DW Dr Zacarias. Continue Lasix drip at 10 mg/hr May need to be intubated. Also has Right pleural effusion and likely will need thoracentesis 8. On Vit K weekly per Dr. Brito for TPN. DW RN, Dr Bassett and Dr Mayer Subjective Subjective No more VT since the 5 beats of VT on 02/21/20. In NSR on Lopressor 2.5 iv bid. NPO on TPN and Lipids. Very weak and confused. Got CXR and put on 100% NRB face Mask In ICU on Lasix drip at 10 mg/hr and diuresing well Objective Last 24 Hour Vital Signs Date Time Temp Pulse Resp B/P (MAP) Pulse Ox O2 Delivery O2 Flow Rate FiO2 03/07/20 17:00 115 29 105/68 (80) 96 03/07/20 17:00 116 34 105/68 (80) 97 03/07/20 16:00 116 03/07/20 16:00 97.5 119 32 102/72 (82) 98 03/07/20 16:00 Non-Rebreather Non-Rebreather 03/07/20 15:00 119 30 127/66 (86) 99 03/07/20 14:00 116 31 120/86 (97) 98 03/07/20 13:00 123 29 123/69 (87) 95 03/07/20 12:00 120 28 127/71 (89) 96 03/07/20 12:00 98.4 03/07/20 12:00 Non-Rebreather Non-Rebreather 03/07/20 12:00 121 03/07/20 11:00 124 23 115/91 (99) 95 03/07/20 10:00 116 29 124/89 (101) 98 03/07/20 09:05 123 140/88 03/07/20 09:00 124 31 140/88 (105) 98 03/07/20 08:00 Non-Rebreather Non-Rebreather 03/07/20 08:00 98.2 122 33 111/75 (87) 98 03/07/20 08:00 122 03/07/20 07:00 121 33 112/72 (85) 98 03/07/20 06:00 124 34 135/75 (95) 98 03/07/20 05:30 119 26 125/73 (90) 97 03/07/20 05:00 121 32 139/81 (100) 98 03/07/20 04:30 121 27 128/74 (92) 97 03/07/20 04:00 98.3 122 33 120/78 (92) 98 03/07/20 04:00 Non-Rebreather Non-Rebreather 03/07/20 04:00 120 03/07/20 03:30 120 32 120/77 (91) 98 03/07/20 03:00 128 30 135/99 (111) 97 03/07/20 02:30 120 32 134/85 (101) 97 03/07/20 02:00 117 27 121/81 (94) 96 03/07/20 01:30 122 33 117/73 (88) 96 03/07/20 01:00 118 27 147/80 (102) 97 03/07/20 00:30 121 29 128/83 (98) 97 03/07/20 00:00 119 03/07/20 00:00 127 30 131/89 (103) 95 03/07/20 00:00 Non-Rebreather Non-Rebreather 03/07/20 00:00 137 03/06/20 23:00 121 31 111/68 (82) 96 03/06/20 22:30 122 30 119/69 (86) 97 03/06/20 22:00 115 29 131/87 (102) 95 03/06/20 21:30 120 23 123/57 (79) 77 03/06/20 21:00 120 26 119/80 (93) 95 03/06/20 20:34 130 122/89 03/06/20 20:30 132 23 122/89 (100) 95 03/06/20 20:00 98.3 133 27 120/81 (94) 94 03/06/20 20:00 Non-Rebreather Non-Rebreather 03/06/20 19:00 131 31 114/69 (84) 97 03/06/20 18:00 130 33 131/84 (100) 95 Intake and Output 03/06/20 03/07/20 19:00 07:00 Intake Total 476.0 ml 1641.0 ml Output Total 1000 ml 1430 ml Balance -524.0 ml 211.0 ml IV Total 476.0 ml 1641.0 ml Output Urine Total 700 ml 1400 ml Stool Total 300 ml 30 ml Laboratory Tests Test 03/06/20 23:32 03/07/20 04:46 03/07/20 16:20 POC Whole Blood Glucose Pending White Blood Count 12.9 K/UL (4.8-10.8) H Red Blood Count 2.99 M/UL (4.20-5.40) L Hemoglobin 9.1 G/DL (12.0-16.0) L Hematocrit 25.7 % (37.0-47.0) L Mean Corpuscular Volume 86 FL (80-99) Mean Corpuscular Hemoglobin 30.5 PG (27.0-31.0) Mean Corpuscular Hemoglobin Concent 35.6 G/DL (32.0-36.0) Red Cell Distribution Width 13.7 % (11.6-14.8) Platelet Count 40 K/UL (150-450) L Mean Platelet Volume 8.4 FL (6.5-10.1) Neutrophils (%) (Auto) % (45.0-75.0) Lymphocytes (%) (Auto) % (20.0-45.0) Monocytes (%) (Auto) % (1.0-10.0) Eosinophils (%) (Auto) % (0.0-3.0) Basophils (%) (Auto) % (0.0-2.0) Differential Total Cells Counted 100 Neutrophils % (Manual) 55 % (45-75) Lymphocytes % (Manual) 26 % (20-45) Monocytes % (Manual) 7 % (1-10) Eosinophils % (Manual) 0 % (0-3) Basophils % (Manual) 0 % (0-2) Band Neutrophils 12 % (0-8) H Nucleated Red Blood Cells 10 /100 WBC Platelet Estimate Decreased L Platelet Morphology Normal Hypochromasia 2+ Anisocytosis 1+ Sodium Level 141 MMOL/L (136-145) 145 MMOL/L (136-145) Potassium Level 2.7 MMOL/L (3.5-5.1) *L 3.2 MMOL/L (3.5-5.1) L Chloride Level 105 MMOL/L (98-107) 105 MMOL/L (98-107) Carbon Dioxide Level 30 MMOL/L (21-32) 30 MMOL/L (21-32) Anion Gap 6 mmol/L (5-15) 10 mmol/L (5-15) Blood Urea Nitrogen 13 mg/dL (7-18) 16 mg/dL (7-18) Creatinine 0.5 MG/DL (0.55-1.30) L 0.4 MG/DL (0.55-1.30) L Estimat Glomerular Filtration Rate > 60 mL/min (>60) > 60 mL/min (>60) Glucose Level 141 MG/DL (74-106) H 111 MG/DL (74-106) H Calcium Level 7.8 MG/DL (8.5-10.1) L 7.3 MG/DL (8.5-10.1) L Magnesium Level 1.8 MG/DL (1.8-2.4) Iron Level 41 ug/dL (50-175) L Total Iron Binding Capacity 120 ug/dL (250-450) L Percent Iron Saturation 34 % (15-50) Unsaturated Iron Binding 79 ug/dL (112-346) L Ferritin 1373 NG/ML (8-388) H Total Bilirubin 0.4 MG/DL (0.2-1.0) Aspartate Amino Transf (AST/SGOT) 36 U/L (15-37) Alanine Aminotransferase (ALT/SGPT) 18 U/L (12-78) Alkaline Phosphatase 197 U/L (46-116) H Total Protein 4.5 G/DL (6.4-8.2) L Albumin 1.1 G/DL (3.4-5.0) L Globulin 3.4 g/dL Albumin/Globulin Ratio 0.3 (1.0-2.7) L Objective HEENT: No JVD Cardiovascular: RSR. No GRM Respiratory: Coarse Rhonchi Abdomen: Soft, non-tender. [place] intact with no drain Extremities: 3 plus edema Peter Quintana MD Mar 07, 2020 17:21
--- NOTE | 2020-03-07 18:00 | NUR ---
NURSE NOTES: Pt repositioned and cleaned; no distress noted.
--- NOTE | 2020-03-07 19:08 | NUR ---
NURSE HAND-OFF REPORT: Latest Vital Signs: Temperature 97.5 , Pulse 117 , B/P 119 /66 , Respiratory Rate 30 , O2 SAT 98 , Non-Rebreather, FiO2 100%. EKG Rhythm: Sinus Tachycardia Rhythm change?: N MD Notified?: Dr Quintana assessed pt in person MD Response: no new orders received Latest Scherer Fall Score: 20 Fall Risk: Low Risk Safety Measures: Call light Within Reach, Bed Alarm Zone 2, Side Rails Side Rails x3, Bed position Low and Locked. Fall Precautions: Yellow Socks Yellow Gown Door Sign Patient Fall Education Report given to Casimiro Mojica RN.
--- NOTE | 2020-03-07 19:20 | NUR ---
NURSE NOTES: pt report received from Yanci GARZON, vital signs are stable at this time. pt is alert and oriented times 1, no acute neuro abnormalities noted. pt is on non rebreather mask, sating 98% O2, no acute resp distress noted. 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 pt bed is low, locked, armed, call light within reach, bed rails up times 3. will follow plan of care.
--- NOTE | 2020-03-07 19:40 | NUR ---
NURSE NOTES: space technologist brought up pts TPN and stored it in [employer] fridge.
[2020-03-07] MEDS ORDERED: DEXTROSE IV SCH ×2 (20:00)
[2020-03-07] MEDS ORDERED: AMINO ACIDS IV SCH ×2 (20:00)
[2020-03-07] MEDS ORDERED: FAT EMULSION IV SCH ×2 (20:00)
[2020-03-07] MEDS: Dyna-Hex 2% Top Sol 2oz TOPIC SCH (21:31)
[2020-03-07] MEDS: D5NS w/KCl 40mEq 1000ml 1,000 ML IV SCH (21:31)
[2020-03-08] VITALS (25 sets, daily range): BP systolic 104–141; BP diastolic 48–94
--- NOTE | 2020-03-08 02:05 | NUR ---
NURSE NOTES: Wilder RT tried down grading O2 mask from non rebreather to Venturi mask. pt de saturated with venturi mask with O2 of low 80%. pt was quickly placed back on non rebreather and re saturated back to 97% O2. pt vital signs stable.
[2020-03-08] MEDS: Zosyn 3.375gm q8h **Extended infusion IVPB SCH ×6 (05:40→21:57)
[2020-03-08 05:42] LABS: ANION GAP 8 mmol/L (5-15); BLOOD UREA NITROGEN 15 mg/dL (7-18); CALCIUM 7.8 MG/DL (8.5-10.1); CARBON DIOXIDE 32 MMOL/L (21-32); CHLORIDE 104 MMOL/L (98-107); CREATININE 0.6 MG/DL (0.55-1.30); PHOSPHORUS 3.6 MG/DL (2.5-4.9); POTASSIUM 2.8 MMOL/L (3.5-5.1); SODIUM 143 MMOL/L (136-145)
[2020-03-08] MEDS: NovoLOG Insulin Flexpen SUBQ SCH ×5 (05:45→23:30)
--- NOTE | 2020-03-08 07:06 | Hematology/Onc Progress Note ---
Assessment/Plan Assessment/Plan Assessment and Recs # Stage IV adenocarcinoma of the colon - biopsy report shows pT3, N2b, M1, lesion with omental metastasis, tumor markers reviewed, just cea 8.5, as well as ct a/p reviewed --> operative report reviewed, per surg, surg ws 02/21/2020 --> currently functional status very poor, at this time hold off further rx in re to chemo --> tumor markers ordered, reviewed, only cea elev --> Ct a/p reviewed, no sig mets on scan, but does have omental mets, does show pneumoperitoneum --> if functional status improves consider single agent PO drug xeloda and if improves further FOLFOX (combo) --> current prognosis poor # Thrombocytopenia - potential causes multifactorial, evaluate liver and viral etiologies to begin, severe and acute, did get heparin but unlikely cause --> lactic acid 2.6, r/o sepsis, likely consumptive process --> Hep panel and HIV neg, HIT is negative too --> ct a/p reviewed --> Peripheral smear ordered to evaluate for blasts /schistocytes -->does show blasts, nucleated cell indicating bone marrow involvement of likely malignancy --> abx and other meds have been reviewed --> transfuse to keep plt >20k --> meds reviewed --> plt 212-->30-->18->8-->15-->12-->50-->40 --> DIC panel has been ordered--> elev lactic acid 4.8-> is wnl --> ABX zosyn --> transfuse 2 units 03/05 # Anemia of chronic disease, malignancy --> anemia panel noted --> hgb 8.9 # Large bowel obstruction --> due to above cancer --> s/p surg # Malnutrition --> s/p tpn # Hypokalemia --> replete with k # PALMER --> hypovolemic, now improved # Dvt ppx scds The timing of this note does not necessarily reflect the time of the patient was seen. Greatly appreciate consultation. Subjective HEENT: Denies: no symptoms, eye pain, blurred vision, tearing, double vision, ear pain, ear discharge, nose pain, nose congestion, throat pain, throat swelling, mouth pain, mouth swelling, other Cardiovascular: Denies: no symptoms, chest pain, edema, irregular heart rate, lightheadedness, palpitations, syncope, other Respiratory: Denies: no symptoms, cough, shortness of breath, SOB with excertion, SOB at rest, sputum, wheezing, other Gastrointestinal/Abdominal: Denies: no symptoms, abdomen distended, abdominal pain, black stools, tarry stools, blood in stool, constipated, diarrhea, difficulty swallowing, nausea, poor appetite, poor fluid intake, rectal bleeding, vomiting, other Genitourinary: Denies: no symptoms, burning, discharge, frequency, flank pain, hematuria, incontinence, pain, urgency, other Neurologic/Psychiatric: Denies: no symptoms, anxiety, depressed, emotional problems, headache, numbness, paresthesia, pre-existing deficit, seizure, tingling, tremors, weakness, other Allergies: Coded Allergies: No Known Allergies (Unverified , 02/15/20) Subjective 02/28 asleep no bleeding, pending tumor markers, with decreased po intake 03/01 more awake dw RN at bedside this am, lactic acid remains elev, start on zosyn stat 03/02 is calm, comfortable, labs noted, tumor markers reviewed, no bm 03/03 labs reviewed, not eating much, imaging noted, new path results noted 03/05 dw rn in am, plt 15, will get 1 unit plts, no bleeding, path noted again 03/06 fatigued this am, labs pending, no major changes, was given plts yest per rn 03/07 fatigued on nonrebreather this am, k was given per rn critically low, labs noted 03/08 on nonrebreather, remains on vt k, tpn, no current bleeding, still critically ill Objective Objective Current Medications Medications (Trade) Dose Ordered Sig/Fozia Route PRN Reason Start Time Stop Time Status Last Admin Dose Admin Acetaminophen (Tylenol) 650 mg Q6H PRN ORAL Mild Pain (Pain Scale 1-3) 02/18/20 17:15 03/19/20 17:14 Chlorhexidine Gluconate (Gail-Hex 2%) 1 applic DAILY@1999 TOPIC 02/25/20 20:00 05/25/20 19:59 03/07/20 21:31 Dextrose 1,000 ml @ 0 mls/hr Q24H PRN IV PN interrupted or unavailable 02/29/20 20:00 03/30/20 19:59 Dextrose (Dextrose 50%) 25 ml Q30M PRN IV Hypoglycemia 03/01/20 23:59 05/30/20 23:58 Dextrose (Dextrose 50%) 50 ml Q30M PRN IV Hypoglycemia 02/29/20 23:59 05/29/20 23:58 Dextrose/ Electrolytes 1,000 ml @ 31 mls/hr Q24H IV 02/29/20 20:00 03/30/20 19:59 03/07/20 21:31 Diphenhydramine HCl (Benadryl) 12.5 mg Q6H PRN IVP Itching/Pruritis 02/18/20 17:15 03/19/20 17:14 Fat Emulsion Intravenous 216 ml/Amino Acids/ Electrolytes/ Dextrose 1,656 ml @ 69 mls/hr Q24H IV 03/07/20 20:00 04/06/20 19:59 03/07/20 21:32 Furosemide 100 mg/ Dextrose 100 ml @ 10 mls/hr Q10H IV 03/07/20 12:00 04/06/20 11:59 03/07/20 21:30 Insulin Aspart (NovoLOG) Q6HR SUBQ 03/01/20 00:00 05/30/20 00:00 03/08/20 05:45 Meclizine HCl (Antivert) 25 mg TID PRN ORAL for dizziness 02/20/20 20:30 03/21/20 20:29 Metoprolol Tartrate 2.5 mg/ Dextrose 57.5 ml @ 130 mls/hr EVERY 12 HOURS IVPB 03/03/20 21:00 04/02/20 20:59 03/07/20 21:30 Ondansetron HCl (Zofran) 4 mg Q6H PRN IVP Nausea & Vomiting 02/18/20 17:15 03/19/20 17:14 Phytonadione (Vitamin K) 10 mg ONCE A WEEK SUBQ 03/07/20 09:00 06/05/20 08:59 03/07/20 08:58 Piperacillin Sod/ Tazobactam Sod 3.375 gm/Sodium Chloride 110 ml @ 27.5 mls/hr EVERY 8 HOURS IVPB 03/08/20 06:00 03/15/20 05:59 03/08/20 05:40 Promethazine HCl 50 mg/Sodium Chloride 111 ml @ 222 mls/hr Q6H PRN IVPB for dizziness 02/20/20 20:45 03/21/20 20:44 02/20/20 21:42 Last 24 Hour Vital Signs Date Time Temp Pulse Resp B/P (MAP) Pulse Ox O2 Delivery O2 Flow Rate FiO2 03/08/20 06:00 118 23 128/91 (103) 100 03/08/20 05:00 126 28 118/74 (89) 98 03/08/20 04:00 Non-Rebreather Non-Rebreather 03/08/20 04:00 116 03/08/20 04:00 98.2 114 30 121/81 (94) 99 03/08/20 03:00 114 29 107/76 (86) 99 03/08/20 02:00 115 30 125/73 (90) 99 03/08/20 01:00 113 31 126/77 (93) 83 03/08/20 00:00 98.7 111 34 107/68 (81) 99 03/08/20 00:00 110 03/08/20 00:00 Non-Rebreather Non-Rebreather 03/07/20 23:00 111 29 119/80 (93) 98 03/07/20 22:00 107 27 119/80 (93) 98 03/07/20 21:30 114 125/73 03/07/20 21:00 116 30 125/89 (101) 98 03/07/20 20:00 98.0 117 30 125/76 (92) 98 03/07/20 20:00 Non-Rebreather Non-Rebreather 03/07/20 20:00 118 03/07/20 19:00 117 30 119/66 (83) 98 03/07/20 18:00 116 25 118/63 (81) 96 03/07/20 17:00 115 29 105/68 (80) 96 03/07/20 17:00 116 34 105/68 (80) 97 03/07/20 16:00 116 03/07/20 16:00 97.5 119 32 102/72 (82) 98 03/07/20 16:00 Non-Rebreather Non-Rebreather 03/07/20 15:00 119 30 127/66 (86) 99 03/07/20 14:00 116 31 120/86 (97) 98 03/07/20 13:00 123 29 123/69 (87) 95 03/07/20 12:00 120 28 127/71 (89) 96 03/07/20 12:00 98.4 03/07/20 12:00 Non-Rebreather Non-Rebreather 03/07/20 12:00 121 03/07/20 11:00 124 23 115/91 (99) 95 03/07/20 10:00 116 29 124/89 (101) 98 03/07/20 09:05 123 140/88 03/07/20 09:00 124 31 140/88 (105) 98 03/07/20 08:00 Non-Rebreather Non-Rebreather 03/07/20 08:00 98.2 122 33 111/75 (87) 98 03/07/20 08:00 122 03/07/20 07:00 121 33 112/72 (85) 98 03/07/20 06:00 124 34 135/75 (95) 98 03/07/20 05:30 119 26 125/73 (90) 97 03/07/20 05:00 121 32 139/81 (100) 98 03/07/20 04:30 121 27 128/74 (92) 97 03/07/20 04:00 98.3 122 33 120/78 (92) 98 03/07/20 04:00 Non-Rebreather Non-Rebreather 03/07/20 04:00 120 03/07/20 03:30 120 32 120/77 (91) 98 03/07/20 03:00 128 30 135/99 (111) 97 03/07/20 02:30 120 32 134/85 (101) 97 03/07/20 02:00 117 27 121/81 (94) 96 03/07/20 01:30 122 33 117/73 (88) 96 03/07/20 01:00 118 27 147/80 (102) 97 03/07/20 00:30 121 29 128/83 (98) 97 03/07/20 00:00 119 03/07/20 00:00 127 30 131/89 (103) 95 03/07/20 00:00 Non-Rebreather Non-Rebreather 03/07/20 00:00 137 03/06/20 23:00 121 31 111/68 (82) 96 03/06/20 22:30 122 30 119/69 (86) 97 03/06/20 22:00 115 29 131/87 (102) 95 03/06/20 21:30 120 23 123/57 (79) 77 03/06/20 21:00 120 26 119/80 (93) 95 03/06/20 20:34 130 122/89 03/06/20 20:30 132 23 122/89 (100) 95 03/06/20 20:00 98.3 133 27 120/81 (94) 94 03/06/20 20:00 Non-Rebreather Non-Rebreather 03/06/20 19:00 131 31 114/69 (84) 97 03/06/20 18:00 130 33 131/84 (100) 95 03/06/20 17:00 126 37 131/81 (98) 98 03/06/20 16:24 129 36 137/89 (105) 99 03/06/20 16:00 125 03/06/20 16:00 Non-Rebreather 03/06/20 16:00 98.8 127 39 128/76 (93) 100 03/06/20 12:00 130 03/06/20 12:00 98.4 124 25 145/82 (103) 100 03/06/20 10:27 124 126/72 03/06/20 09:00 Nasal Cannula 3.0 03/06/20 08:00 97.4 124 25 126/72 (90) 100 03/06/20 08:00 120 Intake and Output 03/07/20 03/08/20 19:00 07:00 Intake Total 1834.0 ml 1184.5 ml Output Total 4070 ml 2130 ml Balance -2236.0 ml -945.5 ml IV Total 1834.0 ml 1184.5 ml Output Urine Total 4000 ml 2100 ml Stool Total 70 ml 30 ml Labs Test 03/05/20 07:15 03/05/20 09:15 03/05/20 11:55 03/05/20 17:25 Sodium Level 142 MMOL/L (136-145) Potassium Level 4.7 MMOL/L (3.5-5.1) Chloride Level 110 MMOL/L (98-107) Carbon Dioxide Level 25 MMOL/L (21-32) Anion Gap 7 mmol/L (5-15) Blood Urea Nitrogen 17 mg/dL (7-18) Creatinine 0.3 MG/DL (0.55-1.30) Estimat Glomerular Filtration Rate > 60 mL/min (>60) Glucose Level 125 MG/DL (74-106) Calcium Level 7.2 MG/DL (8.5-10.1) Phosphorus Level 4.2 MG/DL (2.5-4.9) Magnesium Level 1.8 MG/DL (1.8-2.4) White Blood Count 7.4 K/UL (4.8-10.8) Red Blood Count 2.87 M/UL (4.20-5.40) Hemoglobin 8.6 G/DL (12.0-16.0) Hematocrit 24.2 % (37.0-47.0) Mean Corpuscular Volume 84 FL (80-99) Mean Corpuscular Hemoglobin 30.0 PG (27.0-31.0) Mean Corpuscular Hemoglobin Concent 35.6 G/DL (32.0-36.0) Red Cell Distribution Width 12.8 % (11.6-14.8) Platelet Count 15 K/UL (150-450) Mean Platelet Volume 10.4 FL (6.5-10.1) Neutrophils (%) (Auto) % (45.0-75.0) Lymphocytes (%) (Auto) % (20.0-45.0) Monocytes (%) (Auto) % (1.0-10.0) Eosinophils (%) (Auto) % (0.0-3.0) Basophils (%) (Auto) % (0.0-2.0) Differential Total Cells Counted 100 Neutrophils % (Manual) 42 % (45-75) Lymphocytes % (Manual) 33 % (20-45) Monocytes % (Manual) 13 % (1-10) Eosinophils % (Manual) 1 % (0-3) Basophils % (Manual) 0 % (0-2) Band Neutrophils 11 % (0-8) Nucleated Red Blood Cells 27 /100 WBC Platelet Estimate Decreased Platelet Morphology Normal Hypochromasia 2+ Anisocytosis 1+ Test 03/05/20 23:35 03/06/20 06:26 03/06/20 08:45 03/06/20 12:21 POC Whole Blood Glucose 145 MG/DL (74-106) 131 MG/DL (74-106) 175 MG/DL (74-106) White Blood Count 11.3 K/UL (4.8-10.8) Red Blood Count 2.94 M/UL (4.20-5.40) Hemoglobin 8.9 G/DL (12.0-16.0) Hematocrit 25.2 % (37.0-47.0) Mean Corpuscular Volume 86 FL (80-99) Mean Corpuscular Hemoglobin 30.4 PG (27.0-31.0) Mean Corpuscular Hemoglobin Concent 35.4 G/DL (32.0-36.0) Red Cell Distribution Width 13.1 % (11.6-14.8) Platelet Count 50 K/UL (150-450) Mean Platelet Volume 9.1 FL (6.5-10.1) Neutrophils (%) (Auto) % (45.0-75.0) Lymphocytes (%) (Auto) % (20.0-45.0) Monocytes (%) (Auto) % (1.0-10.0) Eosinophils (%) (Auto) % (0.0-3.0) Basophils (%) (Auto) % (0.0-2.0) Differential Total Cells Counted 100 Neutrophils % (Manual) 57 % (45-75) Lymphocytes % (Manual) 18 % (20-45) Monocytes % (Manual) 12 % (1-10) Eosinophils % (Manual) 0 % (0-3) Basophils % (Manual) 0 % (0-2) Metamyelocytes % 3 % (0-0) Myelocytes % 1 % (0-0) Blast Cells % 2 % (0-0) Band Neutrophils 7 % (0-8) Nucleated Red Blood Cells 14 /100 WBC Platelet Estimate Decreased Platelet Morphology Normal Hypochromasia 2+ Spherocytes 2+ Sodium Level 141 MMOL/L (136-145) Potassium Level 3.2 MMOL/L (3.5-5.1) Chloride Level 109 MMOL/L (98-107) Carbon Dioxide Level 26 MMOL/L (21-32) Anion Gap 6 mmol/L (5-15) Blood Urea Nitrogen 14 mg/dL (7-18) Creatinine 0.5 MG/DL (0.55-1.30) Estimat Glomerular Filtration Rate > 60 mL/min (>60) Glucose Level 151 MG/DL (74-106) Calcium Level 8.0 MG/DL (8.5-10.1) Phosphorus Level 3.5 MG/DL (2.5-4.9) Magnesium Level 1.6 MG/DL (1.8-2.4) Total Bilirubin 0.4 MG/DL (0.2-1.0) Aspartate Amino Transf (AST/SGOT) 32 U/L (15-37) Alanine Aminotransferase (ALT/SGPT) 25 U/L (12-78) Alkaline Phosphatase 179 U/L (46-116) Total Protein 4.9 G/DL (6.4-8.2) Albumin 1.1 G/DL (3.4-5.0) Globulin 3.8 g/dL Albumin/Globulin Ratio 0.3 (1.0-2.7) Triglycerides Level 137 MG/DL (30-150) Test 03/06/20 15:52 03/06/20 23:32 03/07/20 04:46 03/07/20 16:20 Arterial Blood pH 7.471 (7.350-7.450) Arterial Blood Partial Pressure CO2 37.6 mmHg (35.0-45.0) Arterial Blood Partial Pressure O2 117.3 mmHg (75.0-100.0) Arterial Blood HCO3 26.8 mmol/L (22.0-26.0) Arterial Blood Oxygen Saturation 97.4 % (95-100) Arterial Blood Base Excess 3.0 (-2-2) Duong Test Positive White Blood Count 12.9 K/UL (4.8-10.8) Red Blood Count 2.99 M/UL (4.20-5.40) Hemoglobin 9.1 G/DL (12.0-16.0) Hematocrit 25.7 % (37.0-47.0) Mean Corpuscular Volume 86 FL (80-99) Mean Corpuscular Hemoglobin 30.5 PG (27.0-31.0) Mean Corpuscular Hemoglobin Concent 35.6 G/DL (32.0-36.0) Red Cell Distribution Width 13.7 % (11.6-14.8) Platelet Count 40 K/UL (150-450) Mean Platelet Volume 8.4 FL (6.5-10.1) Neutrophils (%) (Auto) % (45.0-75.0) Lymphocytes (%) (Auto) % (20.0-45.0) Monocytes (%) (Auto) % (1.0-10.0) Eosinophils (%) (Auto) % (0.0-3.0) Basophils (%) (Auto) % (0.0-2.0) Differential Total Cells Counted 100 Neutrophils % (Manual) 55 % (45-75) Lymphocytes % (Manual) 26 % (20-45) Monocytes % (Manual) 7 % (1-10) Eosinophils % (Manual) 0 % (0-3) Basophils % (Manual) 0 % (0-2) Band Neutrophils 12 % (0-8) Nucleated Red Blood Cells 10 /100 WBC Platelet Estimate Decreased Platelet Morphology Normal Hypochromasia 2+ Anisocytosis 1+ Sodium Level 141 MMOL/L (136-145) 145 MMOL/L (136-145) Potassium Level 2.7 MMOL/L (3.5-5.1) 3.2 MMOL/L (3.5-5.1) Chloride Level 105 MMOL/L (98-107) 105 MMOL/L (98-107) Carbon Dioxide Level 30 MMOL/L (21-32) 30 MMOL/L (21-32) Anion Gap 6 mmol/L (5-15) 10 mmol/L (5-15) Blood Urea Nitrogen 13 mg/dL (7-18) 16 mg/dL (7-18) Creatinine 0.5 MG/DL (0.55-1.30) 0.4 MG/DL (0.55-1.30) Estimat Glomerular Filtration Rate > 60 mL/min (>60) > 60 mL/min (>60) Glucose Level 141 MG/DL (74-106) 111 MG/DL (74-106) Calcium Level 7.8 MG/DL (8.5-10.1) 7.3 MG/DL (8.5-10.1) Magnesium Level 1.8 MG/DL (1.8-2.4) Iron Level 41 ug/dL (50-175) Total Iron Binding Capacity 120 ug/dL (250-450) Percent Iron Saturation 34 % (15-50) Unsaturated Iron Binding 79 ug/dL (112-346) Ferritin 1373 NG/ML (8-388) Total Bilirubin 0.4 MG/DL (0.2-1.0) Aspartate Amino Transf (AST/SGOT) 36 U/L (15-37) Alanine Aminotransferase (ALT/SGPT) 18 U/L (12-78) Alkaline Phosphatase 197 U/L (46-116) Total Protein 4.5 G/DL (6.4-8.2) Albumin 1.1 G/DL (3.4-5.0) Globulin 3.4 g/dL Albumin/Globulin Ratio 0.3 (1.0-2.7) Test 03/08/20 03:50 Sodium Level 143 MMOL/L (136-145) Potassium Level 2.8 MMOL/L (3.5-5.1) Chloride Level 104 MMOL/L (98-107) Carbon Dioxide Level 32 MMOL/L (21-32) Anion Gap 8 mmol/L (5-15) Blood Urea Nitrogen 15 mg/dL (7-18) Creatinine 0.6 MG/DL (0.55-1.30) Estimat Glomerular Filtration Rate > 60 mL/min (>60) Glucose Level 153 MG/DL (74-106) Calcium Level 7.8 MG/DL (8.5-10.1) Phosphorus Level 3.6 MG/DL (2.5-4.9) Height (Feet): 5 Height (Inches): 4.00 Weight (Pounds): 113 Objective General: NAD HEENT: nc, at Neck: supple Chest:dec breath sounds bilaterally, FM++ Cardiovascular: RRR, no s3, s4 Abdomen: soft, nontender, nd, ++surgical site noted, c/d/i, healing ++ Extremities: no cce, normal range of motion Neuro: alert and oriented Gustavo Mon MD Mar 08, 2020 07:06
--- NOTE | 2020-03-08 07:28 | NUR ---
NURSE HAND-OFF REPORT: Latest Vital Signs: Temperature 98.2 , Pulse 118 , B/P 128 /91 , Respiratory Rate 23 , O2 SAT 100 , Non-Rebreather, O2 Flow Rate 3.0 . Vital Sign Comment: [STABLE] EKG Rhythm: Sinus Tachycardia Rhythm change?: N MD Notified?: Y -Dr. Lilian NEGRO Response: Latest Scherer Fall Score: 20 Fall Risk: Low Risk Safety Measures: Call light Within Reach, Bed Alarm Zone 2, Side Rails Side Rails x3, Bed position Low and Locked. Fall Precautions: Yellow Socks Yellow Gown Door Sign Patient Fall Education Report given to [MELINDA Pickard RN].
--- NOTE | 2020-03-08 07:30 | NUR ---
NURSE NOTES: Patient stable AOx1 alert to self. No s/sx of pain or distress. Eyes FLORINDA. Cardiac sounds benign. ST on monitoring manager. VS otherwise stable. Tachypneic on NRB saturating in high 90's. Unable to auscultate bowel sounds possibly secondary to recent bowel resection. LADARIUS PICC line with dressing dry and intact. TPN, fluids and zosyn infusing at this time. Peripheral IV patent and intact. [place] to mid-abdomen dry and intact open to air. BL radial pulses present. BL pedal pulses weak with +3 edema present. Restraints on with good ROM, sensation and circulation. Side rails upx2, call light within reach, bed low and locked.
[2020-03-08] MEDS: Metoprolol Tartrate 2.5 MG in D5W 55 ML IVPB SCH ×2 (08:47→20:48)
--- NOTE | 2020-03-08 10:21 | General Progress Note ---
Subjective ROS Limited/Unobtainable: No Allergies: Coded Allergies: No Known Allergies (Unverified , 02/15/20) Objective Last 24 Hour Vital Signs Date Time Temp Pulse Resp B/P (MAP) Pulse Ox O2 Delivery O2 Flow Rate FiO2 03/08/20 10:00 110 29 118/84 (95) 98 03/08/20 09:30 104 30 114/68 (83) 98 03/08/20 09:00 118 29 112/78 (89) 100 03/08/20 08:47 119 123/66 03/08/20 08:00 104 03/08/20 08:00 Non-Rebreather Non-Rebreather 03/08/20 08:00 97.4 120 23 123/48 (73) 100 03/08/20 07:00 118 28 115/67 (83) 100 03/08/20 06:00 118 23 128/91 (103) 100 03/08/20 05:00 126 28 118/74 (89) 98 03/08/20 04:00 Non-Rebreather Non-Rebreather 03/08/20 04:00 116 03/08/20 04:00 98.2 114 30 121/81 (94) 99 03/08/20 03:00 114 29 107/76 (86) 99 03/08/20 02:00 115 30 125/73 (90) 99 03/08/20 01:00 113 31 126/77 (93) 83 03/08/20 00:00 98.7 111 34 107/68 (81) 99 03/08/20 00:00 110 03/08/20 00:00 Non-Rebreather Non-Rebreather 03/07/20 23:00 111 29 119/80 (93) 98 03/07/20 22:00 107 27 119/80 (93) 98 03/07/20 21:30 114 125/73 03/07/20 21:00 116 30 125/89 (101) 98 03/07/20 20:00 98.0 117 30 125/76 (92) 98 03/07/20 20:00 Non-Rebreather Non-Rebreather 03/07/20 20:00 118 03/07/20 19:00 117 30 119/66 (83) 98 03/07/20 18:00 116 25 118/63 (81) 96 03/07/20 17:00 115 29 105/68 (80) 96 03/07/20 17:00 116 34 105/68 (80) 97 03/07/20 16:00 116 03/07/20 16:00 97.5 119 32 102/72 (82) 98 03/07/20 16:00 Non-Rebreather Non-Rebreather 03/07/20 15:00 119 30 127/66 (86) 99 03/07/20 14:00 116 31 120/86 (97) 98 03/07/20 13:00 123 29 123/69 (87) 95 03/07/20 12:00 120 28 127/71 (89) 96 03/07/20 12:00 98.4 03/07/20 12:00 Non-Rebreather Non-Rebreather 03/07/20 12:00 121 03/07/20 11:00 124 23 115/91 (99) 95 Intake and Output 03/07/20 03/08/20 19:00 07:00 Intake Total 1834.0 ml 1184.5 ml Output Total 4070 ml 2330 ml Balance -2236.0 ml -1145.5 ml IV Total 1834.0 ml 1184.5 ml Output Urine Total 4000 ml 2300 ml Stool Total 70 ml 30 ml Laboratory Tests 03/07/20 16:20: Sodium Level 145, Potassium Level 3.2L, Chloride Level 105, Carbon Dioxide Level 30, Anion Gap 10, Blood Urea Nitrogen 16, Creatinine 0.4L, Estimat Glomerular Filtration Rate > 60, Glucose Level 111H, Calcium Level 7.3L 03/08/20 03:50: Sodium Level 143, Potassium Level 2.8L, Chloride Level 104, Carbon Dioxide Level 32, Anion Gap 8, Blood Urea Nitrogen 15, Creatinine 0.6, Estimat Glomerular Filtration Rate > 60, Glucose Level 153H, Calcium Level 7.8L, Phosphorus Level 3.6 Height (Feet): 5 Height (Inches): 4.00 Weight (Pounds): 113 General Appearance: lethargic EENT: normal ENT inspection Neck: supple Cardiovascular: normal rate Respiratory/Chest: decreased breath sounds Abdomen: hypoactive bowel sounds, tender Extremities: swelling Assessment/Plan Problem List: (1) Large bowel obstruction ICD Codes: K56.609 - Unspecified intestinal obstruction, unspecified as to partial versus complete obstruction SNOMED: 264442745 (2) Hypokalemia ICD Codes: E87.6 - Hypokalemia SNOMED: 13544650 (3) Lightheaded ICD Codes: R42 - Dizziness and giddiness SNOMED: 848574086 (4) Pancytopenia ICD Codes: D61.818 - Other pancytopenia SNOMED: 192027341 (5) Colon cancer ICD Codes: C18.9 - Malignant neoplasm of colon, unspecified SNOMED: 462649718 Status: stable Assessment/Plan: colon cancer with bowel obstruction s/p resection s/p plt transfusion on TPN NPO abx per ID fu hem recs fu surg recs on restrains on 100 % non breather poor prognosis will fu Graeme Hirsch MD Mar 08, 2020 10:21
--- NOTE | 2020-03-08 10:36 | NUR ---
NURSE NOTES: Patient stable at this time with no s/sx of distress. Moaning periodically but when asked if in pain, patient responds "No I'm okay". Is not aware that she is moaning.
--- NOTE | 2020-03-08 10:42 | Pulmonology Progress Note ---
Subjective ROS Limited/Unobtainable: No Interval Events: S/p colectomy; followed by surgery; now in ICU Constitutional: Reports: no symptoms HEENT: Repors: no symptoms Respiratory: Reports: no symptoms Cardiovascular: Reports: no symptoms Gastrointestinal/Abdominal: Reports: constipation, bloating Genitourinary: Reports: no symptoms Allergies: Coded Allergies: No Known Allergies (Unverified , 02/15/20) Objective Last 24 Hour Vital Signs Date Time Temp Pulse Resp B/P (MAP) Pulse Ox O2 Delivery O2 Flow Rate FiO2 03/08/20 10:00 110 29 118/84 (95) 98 03/08/20 09:30 104 30 114/68 (83) 98 03/08/20 09:00 118 29 112/78 (89) 100 03/08/20 08:47 119 123/66 03/08/20 08:00 104 03/08/20 08:00 Non-Rebreather Non-Rebreather 03/08/20 08:00 97.4 120 23 123/48 (73) 100 03/08/20 07:00 118 28 115/67 (83) 100 03/08/20 06:00 118 23 128/91 (103) 100 03/08/20 05:00 126 28 118/74 (89) 98 03/08/20 04:00 Non-Rebreather Non-Rebreather 03/08/20 04:00 116 03/08/20 04:00 98.2 114 30 121/81 (94) 99 03/08/20 03:00 114 29 107/76 (86) 99 03/08/20 02:00 115 30 125/73 (90) 99 03/08/20 01:00 113 31 126/77 (93) 83 03/08/20 00:00 98.7 111 34 107/68 (81) 99 03/08/20 00:00 110 03/08/20 00:00 Non-Rebreather Non-Rebreather 03/07/20 23:00 111 29 119/80 (93) 98 03/07/20 22:00 107 27 119/80 (93) 98 03/07/20 21:30 114 125/73 03/07/20 21:00 116 30 125/89 (101) 98 03/07/20 20:00 98.0 117 30 125/76 (92) 98 03/07/20 20:00 Non-Rebreather Non-Rebreather 03/07/20 20:00 118 03/07/20 19:00 117 30 119/66 (83) 98 03/07/20 18:00 116 25 118/63 (81) 96 03/07/20 17:00 115 29 105/68 (80) 96 03/07/20 17:00 116 34 105/68 (80) 97 03/07/20 16:00 116 03/07/20 16:00 97.5 119 32 102/72 (82) 98 03/07/20 16:00 Non-Rebreather Non-Rebreather 03/07/20 15:00 119 30 127/66 (86) 99 03/07/20 14:00 116 31 120/86 (97) 98 03/07/20 13:00 123 29 123/69 (87) 95 03/07/20 12:00 120 28 127/71 (89) 96 03/07/20 12:00 98.4 03/07/20 12:00 Non-Rebreather Non-Rebreather 03/07/20 12:00 121 03/07/20 11:00 124 23 115/91 (99) 95 Intake and Output 03/07/20 03/08/20 19:00 07:00 Intake Total 1834.0 ml 1184.5 ml Output Total 4070 ml 2330 ml Balance -2236.0 ml -1145.5 ml IV Total 1834.0 ml 1184.5 ml Output Urine Total 4000 ml 2300 ml Stool Total 70 ml 30 ml General Appearance: no acute distress HEENT: normocephalic Respiratory: chest wall non-tender, lungs clear Cardiovascular: normal peripheral pulses Abdomen: non distended, absent bowel sounds Laboratory Tests 03/07/20 16:20: Sodium Level 145, Potassium Level 3.2L, Chloride Level 105, Carbon Dioxide Level 30, Anion Gap 10, Blood Urea Nitrogen 16, Creatinine 0.4L, Estimat Glomerular Filtration Rate > 60, Glucose Level 111H, Calcium Level 7.3L 03/08/20 03:50: Sodium Level 143, Potassium Level 2.8L, Chloride Level 104, Carbon Dioxide Level 32, Anion Gap 8, Blood Urea Nitrogen 15, Creatinine 0.6, Estimat Glomerular Filtration Rate > 60, Glucose Level 153H, Calcium Level 7.8L, Phosphorus Level 3.6 Current Medications Medications (Trade) Dose Ordered Sig/Fozia Route PRN Reason Start Time Stop Time Status Last Admin Dose Admin Acetaminophen (Tylenol) 650 mg Q6H PRN ORAL Mild Pain (Pain Scale 1-3) 02/18/20 17:15 03/19/20 17:14 Chlorhexidine Gluconate (Gail-Hex 2%) 1 applic DAILY@2000 TOPIC 02/25/20 20:00 05/25/20 19:59 03/07/20 21:31 Dextrose 1,000 ml @ 0 mls/hr Q24H PRN IV PN interrupted or unavailable 02/29/20 20:00 03/30/20 19:59 Dextrose (Dextrose 50%) 25 ml Q30M PRN IV Hypoglycemia 03/01/20 23:59 05/30/20 23:58 Dextrose (Dextrose 50%) 50 ml Q30M PRN IV Hypoglycemia 02/29/20 23:59 05/29/20 23:58 Dextrose/ Electrolytes 1,000 ml @ 31 mls/hr Q24H IV 02/29/20 20:00 03/30/20 19:59 03/07/20 21:31 Diphenhydramine HCl (Benadryl) 12.5 mg Q6H PRN IVP Itching/Pruritis 02/18/20 17:15 03/19/20 17:14 Fat Emulsion Intravenous 216 ml/Amino Acids/ Electrolytes/ Dextrose 1,656 ml @ 69 mls/hr Q24H IV 03/07/20 20:00 03/08/20 19:59 03/07/20 21:32 Fat Emulsion Intravenous 216 ml/Amino Acids/ Electrolytes/ Dextrose 1,656 ml @ 69 mls/hr Q24H IV 03/08/20 20:00 04/07/20 19:59 Furosemide 100 mg/ Dextrose 100 ml @ 10 mls/hr Q10H IV 03/07/20 12:00 04/06/20 11:59 03/08/20 08:41 Insulin Aspart (NovoLOG) Q6HR SUBQ 03/01/20 00:00 05/30/20 00:00 03/08/20 05:45 Meclizine HCl (Antivert) 25 mg TID PRN ORAL for dizziness 02/20/20 20:30 03/21/20 20:29 Metoprolol Tartrate 2.5 mg/ Dextrose 57.5 ml @ 130 mls/hr EVERY 12 HOURS IVPB 03/03/20 21:00 04/02/20 20:59 03/08/20 08:47 Ondansetron HCl (Zofran) 4 mg Q6H PRN IVP Nausea & Vomiting 02/18/20 17:15 03/19/20 17:14 Phytonadione (Vitamin K) 10 mg ONCE A WEEK SUBQ 03/07/20 09:00 06/05/20 08:59 03/07/20 08:58 Piperacillin Sod/ Tazobactam Sod 3.375 gm/Sodium Chloride 110 ml @ 27.5 mls/hr EVERY 8 HOURS IVPB 03/08/20 06:00 03/15/20 05:59 03/08/20 05:40 Potassium Chloride 100 ml @ 50 mls/hr Q2H IVPB 03/08/20 09:00 03/08/20 14:59 03/08/20 08:42 Promethazine HCl 50 mg/Sodium Chloride 111 ml @ 222 mls/hr Q6H PRN IVPB for dizziness 02/20/20 20:45 03/21/20 20:44 02/20/20 21:42 Assessment/Plan Assessment/Plan IMPRESSION: 1. S/p laparotomy 2. Severe hypokalemia. Corrected 3. Hypertension. 4. Diuretic use. DISCUSSION: Replaced potassium. S/P laparotomy I will continue to follow carefully. Await return of bowel fxn GI and renal following Saturating better on NRBM On Lasix gtt Edema decreased Discussed with gen surgery Will re-attempt PO diet Will discuss DC planning with hospice to SNF Hanna Cline Omar Syed MD Mar 08, 2020 10:42
--- NOTE | 2020-03-08 12:00 | NUR ---
NURSE NOTES: Patient stable at this time. Repositioned.
--- NOTE | 2020-03-08 13:19 | NUR ---
BLENDING TANK TENDER NOTE PT is currently in ICU, on non-rebreather mask. This SW met w/ pt on 03/01/2020, was informed that pt does not have POA/AD/family emergency contact. Pt was residing w/ her roommates prior to admission. Pt was able to state short words/sentences. However, pt does not appear to be stable to participate full psychosocial assessment. SW to F/U as needed.
--- NOTE | 2020-03-08 13:30 | Nephrology Progress Note ---
Assessment/Plan Plan #hypoxemic resp failure - on nonrebreather mask #Severe hypokalemia #Abdominal distention - bowel obstruction due to colonic mass- s/p resection #lactic acidosis #htn #Dehydration #HLD - lasix drip - on non rebreather mask - replete K today - npo - TPN - replete lytes - monitor lactic acidic level - replete K, elvi mag - IVF-base --D5NS + 40 kcl with TPN - replete K, mag and phos prn - NPO - monitor lytes - avoid nephrotoxins - gen surg eval Subjective ROS Limited/Unobtainable: Yes Constitutional: Reports: weakness HEENT: Denies: no symptoms, eye pain, blurred vision, tearing, double vision, ear pain, ear discharge, nose pain, nose congestion, throat pain, throat swelling, mouth pain, mouth swelling, other Genitourinary: Denies: no symptoms, burning, discharge, frequency, flank pain, hematuria, incontinence, pain, urgency, other Neurologic/Psychiatric: Denies: no symptoms, anxiety, depressed, emotional problems, headache, numbness, paresthesia, pre-existing deficit, seizure, tingling, tremors, weakness, other Subjective worsening resp failure tranferred to ICU on nonrebreather mask started on lasix drip K repleted s/p resection CT with mets to omentum Objective Objective Last 24 Hour Vital Signs Date Time Temp Pulse Resp B/P (MAP) Pulse Ox O2 Delivery O2 Flow Rate FiO2 03/08/20 12:00 116 03/08/20 12:00 Non-Rebreather Non-Rebreather 03/08/20 12:00 115 28 104/55 (71) 98 03/08/20 11:00 114 29 124/88 (100) 98 03/08/20 10:00 110 29 118/84 (95) 98 03/08/20 09:30 104 30 114/68 (83) 98 03/08/20 09:00 118 29 112/78 (89) 100 03/08/20 08:47 119 123/66 03/08/20 08:00 104 03/08/20 08:00 Non-Rebreather Non-Rebreather 03/08/20 08:00 97.4 120 23 123/48 (73) 100 03/08/20 07:00 118 28 115/67 (83) 100 03/08/20 06:00 118 23 128/91 (103) 100 03/08/20 05:00 126 28 118/74 (89) 98 03/08/20 04:00 Non-Rebreather Non-Rebreather 03/08/20 04:00 116 03/08/20 04:00 98.2 114 30 121/81 (94) 99 03/08/20 03:00 114 29 107/76 (86) 99 03/08/20 02:00 115 30 125/73 (90) 99 03/08/20 01:00 113 31 126/77 (93) 83 03/08/20 00:00 98.7 111 34 107/68 (81) 99 03/08/20 00:00 110 03/08/20 00:00 Non-Rebreather Non-Rebreather 03/07/20 23:00 111 29 119/80 (93) 98 03/07/20 22:00 107 27 119/80 (93) 98 03/07/20 21:30 114 125/73 03/07/20 21:00 116 30 125/89 (101) 98 03/07/20 20:00 98.0 117 30 125/76 (92) 98 03/07/20 20:00 Non-Rebreather Non-Rebreather 03/07/20 20:00 118 03/07/20 19:00 117 30 119/66 (83) 98 03/07/20 18:00 116 25 118/63 (81) 96 03/07/20 17:00 115 29 105/68 (80) 96 03/07/20 17:00 116 34 105/68 (80) 97 03/07/20 16:00 116 03/07/20 16:00 97.5 119 32 102/72 (82) 98 03/07/20 16:00 Non-Rebreather Non-Rebreather 03/07/20 15:00 119 30 127/66 (86) 99 03/07/20 14:00 116 31 120/86 (97) 98 Intake and Output 03/07/20 03/08/20 19:00 07:00 Intake Total 1834.0 ml 1184.5 ml Output Total 4070 ml 2330 ml Balance -2236.0 ml -1145.5 ml IV Total 1834.0 ml 1184.5 ml Output Urine Total 4000 ml 2300 ml Stool Total 70 ml 30 ml Laboratory Tests 03/07/20 16:20: Sodium Level 145, Potassium Level 3.2L, Chloride Level 105, Carbon Dioxide Level 30, Anion Gap 10, Blood Urea Nitrogen 16, Creatinine 0.4L, Estimat Glomerular Filtration Rate > 60, Glucose Level 111H, Calcium Level 7.3L 03/08/20 03:50: Sodium Level 143, Potassium Level 2.8L, Chloride Level 104, Carbon Dioxide Level 32, Anion Gap 8, Blood Urea Nitrogen 15, Creatinine 0.6, Estimat Glomerular Filtration Rate > 60, Glucose Level 153H, Calcium Level 7.8L, Phosphorus Level 3.6 03/08/20 05:23: POC Whole Blood Glucose [Pending] Height (Feet): 5 Height (Inches): 4.00 Weight (Pounds): 113 Yakelin Arnett M.D. Mar 08, 2020 13:30
--- NOTE | 2020-03-08 14:03 | Surgery Progress Note ---
Surgery Progress Note Subjective Procedure Performed ex lap left colectomy mobilization of splenic flexure omentectomy primary anastomosis Additional Comments ill appearing responsive but requiring restraints as she attempts to remove face mask oxygen Objective Last 24 Hour Vital Signs Date Time Temp Pulse Resp B/P (MAP) Pulse Ox O2 Delivery O2 Flow Rate FiO2 03/08/20 13:00 117 30 141/81 (101) 98 03/08/20 12:00 116 03/08/20 12:00 Non-Rebreather Non-Rebreather 03/08/20 12:00 115 28 104/55 (71) 98 03/08/20 11:00 114 29 124/88 (100) 98 03/08/20 10:00 110 29 118/84 (95) 98 03/08/20 09:30 104 30 114/68 (83) 98 03/08/20 09:00 118 29 112/78 (89) 100 03/08/20 08:47 119 123/66 03/08/20 08:00 104 03/08/20 08:00 Non-Rebreather Non-Rebreather 03/08/20 08:00 97.4 120 23 123/48 (73) 100 03/08/20 07:00 118 28 115/67 (83) 100 03/08/20 06:00 118 23 128/91 (103) 100 03/08/20 05:00 126 28 118/74 (89) 98 03/08/20 04:00 Non-Rebreather Non-Rebreather 03/08/20 04:00 116 03/08/20 04:00 98.2 114 30 121/81 (94) 99 03/08/20 03:00 114 29 107/76 (86) 99 03/08/20 02:00 115 30 125/73 (90) 99 03/08/20 01:00 113 31 126/77 (93) 83 03/08/20 00:00 98.7 111 34 107/68 (81) 99 03/08/20 00:00 110 03/08/20 00:00 Non-Rebreather Non-Rebreather 03/07/20 23:00 111 29 119/80 (93) 98 03/07/20 22:00 107 27 119/80 (93) 98 03/07/20 21:30 114 125/73 03/07/20 21:00 116 30 125/89 (101) 98 03/07/20 20:00 98.0 117 30 125/76 (92) 98 03/07/20 20:00 Non-Rebreather Non-Rebreather 03/07/20 20:00 118 03/07/20 19:00 117 30 119/66 (83) 98 03/07/20 18:00 116 25 118/63 (81) 96 03/07/20 17:00 115 29 105/68 (80) 96 03/07/20 17:00 116 34 105/68 (80) 97 03/07/20 16:00 116 03/07/20 16:00 97.5 119 32 102/72 (82) 98 03/07/20 16:00 Non-Rebreather Non-Rebreather 03/07/20 15:00 119 30 127/66 (86) 99 I&O Intake and Output 03/07/20 03/08/20 18:59 06:59 Intake Total 1824.0 ml 1294.5 ml Output Total 4070 ml 2430 ml Balance -2246.0 ml -1135.5 ml IV Total 1824.0 ml 1294.5 ml Output Urine Total 4000 ml 2400 ml Stool Total 70 ml 30 ml Dressing: other Wound: other Cardiovascular: RSR Respiratory: decreased breath sounds Abdomen: soft, non-tender, present bowel sounds Extremities: no tenderness, no cyanosis Laboratory Tests Test 03/07/20 16:20 03/08/20 03:50 03/08/20 05:23 Sodium Level 145 MMOL/L (136-145) 143 MMOL/L (136-145) Potassium Level 3.2 MMOL/L (3.5-5.1) L 2.8 MMOL/L (3.5-5.1) L Chloride Level 105 MMOL/L (98-107) 104 MMOL/L (98-107) Carbon Dioxide Level 30 MMOL/L (21-32) 32 MMOL/L (21-32) Anion Gap 10 mmol/L (5-15) 8 mmol/L (5-15) Blood Urea Nitrogen 16 mg/dL (7-18) 15 mg/dL (7-18) Creatinine 0.4 MG/DL (0.55-1.30) L 0.6 MG/DL (0.55-1.30) Estimat Glomerular Filtration Rate > 60 mL/min (>60) > 60 mL/min (>60) Glucose Level 111 MG/DL (74-106) H 153 MG/DL (74-106) H Calcium Level 7.3 MG/DL (8.5-10.1) L 7.8 MG/DL (8.5-10.1) L Phosphorus Level 3.6 MG/DL (2.5-4.9) POC Whole Blood Glucose Pending Plan Problems: (1) Lightheaded (2) Hypokalemia (3) Large bowel obstruction Assessment & Plan: 64-year-old female with abdominal distention potential large bowel obstruction. Afebrile, hemodynamic stable, labs noted no leukocytosis no pain no bleeding. No prior abdominal surgeries. Nausea and emesis clear liquid. Decreased appetite. Cannot recall last flatus or BM. CT as below. No direct mass or abnormality identified but there is absolutely identifiable transition at the rectosigmoid area with proximal dilatation. A colonoscopy is warranted but though would be with definitive risk of potential perforation. GI consult pending. Replace electrolytes. N.p.o. IV fluids will await scope for findings. Conceivably may require surgical intervention. Thank you for let me participate in patient's care will follow with recommendations GI consider for scope 02/17 will be available for surgery in case of emergency high risk for perforation or complication and understands. but strongly recommend scope prior to surgery for etiology purposes. s/p ex lap. see op report recovering okay to downgrade to tele npo okay for ice chips iv fluids abx tomas to stay in until ambulatory heparin petechia plt down hold heparin scds cont abx trend labs trial liquid diet ?air leak but afebrile, hd stable, no wbc, shift improved. needs K replacement plt trending down petechia CT pending electrolytes improved CT with mets to omentum likely was obstructed for significant period of time prior to surgery and tumor with mets. liver okay but post op she is declining. unfortunately prognosis is guarded. asked her if she wanted me to call anyone and declined ct noted. fluid and gas in colon and rectum distal to anastomosis. possible occult leak? but no fevers, no wbc, and exam without tenderness. rectal tube ordered liquid scant output tpn discussed with paul. pending labs. recommended for hospice discussed her condition and decline. unsafe for surgical intervention at this time given plt/labs/decline asked if she wanted me to discuss or call family / friends and declined declining There are several circumscribed low-density nonenhancing cysts noted in the liver. The spleen is homogeneous. Gallbladder is without sludge or stone and there is no wall thickening. The pancreas is unremarkable. Adrenals are normal in morphology. The kidneys are normal in size, shape and axis. Small bowel loops are nondistended. The dominant abnormality is severe colonic distention containing air-fluid levels and stool debris. Dilated colon extends down to the rectosigmoid junction where there is an apparent transition. The rectal vault is nondistended with only a small amount of stool. No definite discernible mass is detected there is There is no free fluid or free air. No pathologic adenopathy demonstrated. Bladder is empty. There is no suspicious superficial soft tissue or osseous abnormality. IMPRESSION: SEVERE COLONIC DISTENTION WITH AIR-FLUID LEVELS AND STOOL DEBRIS. THERE IS APPARENT TRANSITION AT THE RECTOSIGMOID JUNCTION WITH A RELATIVELY EMPTY RECTAL VAULT WITH ONLY SMALL AMOUNT OF STOOL. NO DEFINITE DISCERNIBLE MASS AT THE TRANSITION POINT. RECOMMEND GI CONSULTATION AND CONSIDER COLONOSCOPY. (4) Colon cancer Swapnil Brito Mar 08, 2020 14:03
--- NOTE | 2020-03-08 14:16 | Cardiac Electrophysiology PN ---
Assessment/Plan Assessment/Plan 1. Nonsustained VT 5 beats. No recurrence after hypokalemia corrected. EF 55%. On iv metoprolol 2.5 mg q 12 2. Sinus tach and anemia better on Metoprolol 2.5 iv bid and after PRBC 3. Bowel obstruction. S/P ex lap, left colectomy, mobilization of splenic flexure by Dr Brito, Gi and surgery. 4. Hypokalemia replaced with iv K and Mg. 5. PVCs and dizziness 6. Anemia with Hb 6.9. s/p PRBC 02/26/20 . S/P CT abdomen and pelvis 7. Respiratory failure. On 100% NRB FM. CXR reviewed. Continue Lasix drip at 10 mg/hr Right pleural effusion and likely will need thoracentesis 8. On Vit K weekly per Dr. Brito for TPN. DW RN, Dr Bassett and Dr Mayer Subjective Subjective No more VT since the 5 beats of VT on 02/21/20. In NSR on Lopressor 2.5 iv bid. NPO on TPN and Lipids. Very weak and confused. Got CXR and put on 100% NRB face Mask In ICU on Lasix drip at 10 mg/hr and diuresing well Objective Last 24 Hour Vital Signs Date Time Temp Pulse Resp B/P (MAP) Pulse Ox O2 Delivery O2 Flow Rate FiO2 03/08/20 13:00 117 30 141/81 (101) 98 03/08/20 12:00 116 03/08/20 12:00 Non-Rebreather Non-Rebreather 03/08/20 12:00 115 28 104/55 (71) 98 03/08/20 11:00 114 29 124/88 (100) 98 03/08/20 10:00 110 29 118/84 (95) 98 03/08/20 09:30 104 30 114/68 (83) 98 03/08/20 09:00 118 29 112/78 (89) 100 03/08/20 08:47 119 123/66 03/08/20 08:00 104 03/08/20 08:00 Non-Rebreather Non-Rebreather 03/08/20 08:00 97.4 120 23 123/48 (73) 100 03/08/20 07:00 118 28 115/67 (83) 100 03/08/20 06:00 118 23 128/91 (103) 100 03/08/20 05:00 126 28 118/74 (89) 98 03/08/20 04:00 Non-Rebreather Non-Rebreather 03/08/20 04:00 116 03/08/20 04:00 98.2 114 30 121/81 (94) 99 03/08/20 03:00 114 29 107/76 (86) 99 03/08/20 02:00 115 30 125/73 (90) 99 03/08/20 01:00 113 31 126/77 (93) 83 03/08/20 00:00 98.7 111 34 107/68 (81) 99 03/08/20 00:00 110 03/08/20 00:00 Non-Rebreather Non-Rebreather 03/07/20 23:00 111 29 119/80 (93) 98 03/07/20 22:00 107 27 119/80 (93) 98 03/07/20 21:30 114 125/73 03/07/20 21:00 116 30 125/89 (101) 98 03/07/20 20:00 98.0 117 30 125/76 (92) 98 03/07/20 20:00 Non-Rebreather Non-Rebreather 03/07/20 20:00 118 03/07/20 19:00 117 30 119/66 (83) 98 03/07/20 18:00 116 25 118/63 (81) 96 03/07/20 17:00 115 29 105/68 (80) 96 03/07/20 17:00 116 34 105/68 (80) 97 03/07/20 16:00 116 03/07/20 16:00 97.5 119 32 102/72 (82) 98 03/07/20 16:00 Non-Rebreather Non-Rebreather 03/07/20 15:00 119 30 127/66 (86) 99 Intake and Output 03/07/20 03/08/20 18:59 06:59 Intake Total 1824.0 ml 1294.5 ml Output Total 4070 ml 2430 ml Balance -2246.0 ml -1135.5 ml IV Total 1824.0 ml 1294.5 ml Output Urine Total 4000 ml 2400 ml Stool Total 70 ml 30 ml Laboratory Tests Test 03/07/20 16:20 03/08/20 03:50 03/08/20 05:23 Sodium Level 145 MMOL/L (136-145) 143 MMOL/L (136-145) Potassium Level 3.2 MMOL/L (3.5-5.1) L 2.8 MMOL/L (3.5-5.1) L Chloride Level 105 MMOL/L (98-107) 104 MMOL/L (98-107) Carbon Dioxide Level 30 MMOL/L (21-32) 32 MMOL/L (21-32) Anion Gap 10 mmol/L (5-15) 8 mmol/L (5-15) Blood Urea Nitrogen 16 mg/dL (7-18) 15 mg/dL (7-18) Creatinine 0.4 MG/DL (0.55-1.30) L 0.6 MG/DL (0.55-1.30) Estimat Glomerular Filtration Rate > 60 mL/min (>60) > 60 mL/min (>60) Glucose Level 111 MG/DL (74-106) H 153 MG/DL (74-106) H Calcium Level 7.3 MG/DL (8.5-10.1) L 7.8 MG/DL (8.5-10.1) L Phosphorus Level 3.6 MG/DL (2.5-4.9) POC Whole Blood Glucose Pending Objective HEENT: No JVD Cardiovascular: RSR. No GRM Respiratory: Coarse Rhonchi Abdomen: Soft, non-tender. Jessica intact with no drain Extremities: 3 plus edema Peter Quintana MD Mar 08, 2020 14:16
--- NOTE | 2020-03-08 16:23 | NUR ---
[employer]IST SI: RESP FAILURE, RIGHT LEG DVT T. 97.4 HR 118 RR 29 B/P 112/78 NRM K 2.8 IS: ZOSYN IV TPN IV LIPIDS IV LASIX GTT ICU STATUS
--- NOTE | 2020-03-08 19:50 | NUR ---
NURSE NOTES: PATIENT ALERT, ORIENTED X2, DENIED PAIN OR SOB AT THIS TIME, ON FIO2 100% NRB, O2 SATURATION 100% NOTED, HR 100'S/MIN ST, ABDOMEN SOFT, SX WOUND W/GAVI, OPEN THE AIR, CLEANED AND DRIED STATUS, NO N/V NOTED, KEPT HOB 30 DEGREES AND ASPIRATION PRECAUTION, RECTAL TUBE INTACT AND PATENT, DARK COFFEE COLOR LIQUID STOOL OUTED, F/C INTACT AND PATENT, YELLOW COLOR URINE OUTED, PICC LINE TO RIGHT UPPER ARM AND PPL TO LEFT WRIST INTACT AND PATENT, ONGOING TPN AT 69ML/HR, IV FLUID D5W NS W/KCL 40MEQ AT 31ML/HR AND LASIX 10ML/HR VIA PICC LINE, 2 POINT SOFT RESTRAINTS STATUS, ON P200, MADE LOWER BED POSITION, ON BED ALARM AND LOCKED, PLACED CALL LIGHT WITHIN REACH, WILL CONTINUE TO MONITOR.
--- NOTE | 2020-03-08 19:56 | NUR ---
NURSE HAND-OFF REPORT: Latest Vital Signs: Temperature 97.4 , Pulse 116 , B/P 129 /75 , Respiratory Rate 31 , O2 SAT 97 , Non-Rebreather, O2 Flow Rate 3.0 . Vital Sign Comment: STABLE EKG Rhythm: Sinus Tachycardia Rhythm change?: MD Notified?: MD Response: Latest Scherer Fall Score: 20 Fall Risk: Low Risk Safety Measures: Call light Within Reach, Bed Alarm Zone 2, Side Rails Side Rails x3, Bed position Low and Locked. Fall Precautions: Yellow Socks Yellow Gown Door Sign Patient Fall Education Report given to Thiago RN. Plan of care endorsed.
[2020-03-08] MEDS: D5NS w/KCl 40mEq 1000ml 1,000 ML IV SCH (20:06)
[2020-03-08] MEDS: Dyna-Hex 2% Top Sol 2oz TOPIC SCH (20:06)
[2020-03-08] MEDS: AMINO ACIDS IV SCH ×2 (20:06)
[2020-03-08] MEDS: DEXTROSE IV SCH ×2 (20:06)
[2020-03-08] MEDS: FAT EMULSION IV SCH ×2 (20:06)
--- NOTE | 2020-03-08 22:10 | NUR ---
NURSE NOTES: PATIENT ASLEEP ON AND OFF STATUS, REPOSITIONED, WILL CONTINUE TO MONITOR.
[2020-03-08] MEDS ORDERED: Tubing IV Secondary IV ONE (22:26)
[2020-03-08] MEDS ORDERED: NS 275ml ONE (22:26)
[2020-03-09] VITALS (25 sets, daily range): BP systolic 96–139; BP diastolic 46–98
--- NOTE | 2020-03-09 00:28 | NUR ---
NURSE NOTES: PATIENT TRIED TO REMOVE LINE, SECURED RESTRAINTS, WILL CONTINUE TO MONITOR.
--- NOTE | 2020-03-09 02:30 | NUR ---
NURSE NOTES: LE; PATIENT ASLEEP STATUS, MADE CALM ENVIRONMENT.
--- NOTE | 2020-03-09 04:10 | NUR ---
NURSE NOTES: RECEIVED PHONE CALL FROM PT'S COUSIN (BRYANNA) REGARDING PT'S SITUATION AND WANTED DISCUSSION WITH DR. LUCIA THAT WILL RELATE TO NEXT SHIFT.
--- NOTE | 2020-03-09 05:00 | NUR ---
NURSE NOTES: MORNING CARE AND ORAL CARE WAS DONE, NO BM STATUS.
[2020-03-09 05:02] LABS: HEMATOCRIT 25.3 % (37.0-47.0); MEAN CORPUSCULAR VOLUME 86 FL (80-99); PLATELET COUNT 73 K/UL (150-450); RED BLOOD COUNT 2.92 M/UL (4.20-5.40); RED CELL DISTRIBUTION WIDTH 13.8 % (11.6-14.8)
[2020-03-09 05:26] LABS: ANION GAP 7 mmol/L (5-15); BLOOD UREA NITROGEN 17 mg/dL (7-18); CALCIUM 7.9 MG/DL (8.5-10.1); CARBON DIOXIDE 35 MMOL/L (21-32); CHLORIDE 102 MMOL/L (98-107); CREATININE 0.6 MG/DL (0.55-1.30); PHOSPHORUS 3.8 MG/DL (2.5-4.9); SODIUM 144 MMOL/L (136-145)
[2020-03-09 05:28] LABS: WHITE BLOOD COUNT 22.6 K/UL (4.8-10.8)
[2020-03-09] MEDS: Zosyn 3.375gm q8h **Extended infusion IVPB SCH ×6 (05:31→22:04)
[2020-03-09] MEDS: NovoLOG Insulin Flexpen SUBQ SCH ×4 (05:44→23:56)
--- NOTE | 2020-03-09 06:43 | NUR ---
NURSE NOTES: CALLED DR. LUCIA REGARDING POTASSIUM 3.0, MG LEVEL 1.4 AND CRITICAL WBC LEVEL 22.6 THAT MD WAS AWARE, NO NEW ORDER STATUS.
--- NOTE | 2020-03-09 07:07 | NUR ---
NURSE HAND-OFF REPORT: Latest Vital Signs: Temperature 97.4 , Pulse 114 , B/P 112 /74 , Respiratory Rate 36 , O2 SAT 93 , Non-Rebreather, O2 Flow Rate 15.0 . Vital Sign Comment: VSS EKG Rhythm: Sinus Tachycardia Rhythm change?: N MD Notified?: Yaneth Quintana MD Response: Latest Scherer Fall Score: 20 Fall Risk: Low Risk Safety Measures: Call light Within Reach, Bed Alarm Zone 1, Side Rails Side Rails x3, Bed position Low and Locked. Fall Precautions: Yellow Socks Door Sign Patient Fall Education Report given to RYANN LAWRENCE.
--- NOTE | 2020-03-09 07:21 | NUR ---
CASE MANAGEMENT: REVIEW SI: COLON CA . LARGE BOWEL OBSTRUCTION . S/P EX LAP LEFT COLECTOMY T 97.4 HR 117 RR 32 BP 125/55 SAT 93% NON-REBREATHER 15.0 WBC 22.6 H/H 9.0/25.3 IS: VITAMIN K SUBQ ONCE A WK D5 NS w/KCl 40 MEQ IVF @ Q24HR ZOSYN IV Q8HR TPN Q24HR NPO BILATERAL WRIST RESTRAINTS RECTAL TUBE ICU STATUS DCP: PATIENT IS FROM HOME
--- NOTE | 2020-03-09 07:30 | NUR ---
NURSE NOTES: Patient stable AOx1 alert to self. No s/sx of pain or distress. Eyes FLORINDA. Cardiac sounds benign. ST on cafeteria monitor. VS otherwise stable. Tachypneic on NRB saturating in high 90's. Unable to auscultate bowel sounds. LADARIUS PICC line with dressing dry and intact. TPN, fluids and zosyn infusing at this time. Peripheral IV patent and intact. [place] to mid-abdomen dry and intact open to air. BL radial pulses present. BL pedal pulses weak with +3 edema present. Restraints on with good ROM, sensation and circulation. Side rails upx2, call light within reach, bed low and locked.
--- NOTE | 2020-03-09 07:40 | Hematology/Onc Progress Note ---
Assessment/Plan Assessment/Plan Assessment and Recs # Stage IV adenocarcinoma of the colon - biopsy report shows pT3, N2b, M1, lesion with omental metastasis, tumor markers reviewed, just cea 8.5, as well as ct a/p reviewed --> operative report reviewed, per surg, surg ws 02/21/2020 --> currently functional status very poor, at this time hold off further rx in re to chemo --> tumor markers ordered, reviewed, only cea elev --> Ct a/p reviewed, no sig mets on scan, but does have omental mets, does show pneumoperitoneum --> if functional status improves consider single agent PO drug xeloda and if improves further FOLFOX (combo) --> current prognosis poor # Thrombocytopenia - potential causes multifactorial, evaluate liver and viral etiologies to begin, severe and acute, did get heparin but unlikely cause --> lactic acid 2.6, r/o sepsis, likely consumptive process --> Hep panel and HIV neg, HIT is negative too --> ct a/p reviewed --> Peripheral smear ordered to evaluate for blasts /schistocytes -->does show blasts, nucleated cell indicating bone marrow involvement of likely malignancy --> abx and other meds have been reviewed --> transfuse to keep plt >20k --> meds reviewed --> plt 212-->30-->18->8-->15-->12-->50-->40-->73 --> DIC panel has been ordered--> elev lactic acid 4.8-> is wnl --> ABX zosyn --> transfuse 2 units 10/4 # Positive for acute popliteal deep venous thrombosis on the right --> cant anticoagulate given anemia, low plts --> hold off ivcf as likely risks outweight benefits, consider hospice # Anemia of chronic disease, malignancy --> anemia panel noted --> hgb 8.9-->9 # Large bowel obstruction --> due to above cancer --> s/p surg # Malnutrition --> s/p tpn # Hypokalemia --> replete with k # PALMER --> hypovolemic, now improved # Dvt ppx scds The timing of this note does not necessarily reflect the time of the patient was seen. Greatly appreciate consultation. Subjective Allergies: Coded Allergies: No Known Allergies (Unverified , 02/15/20) All Systems: reviewed and negative except above Subjective 02/28 asleep no bleeding, pending tumor markers, with decreased po intake 03/01 more awake dw RN at bedside this am, lactic acid remains elev, start on zosyn stat 03/02 is calm, comfortable, labs noted, tumor markers reviewed, no bm 03/03 labs reviewed, not eating much, imaging noted, new path results noted 03/05 dw rn in am, plt 15, will get 1 unit plts, no bleeding, path noted again 03/06 fatigued this am, labs pending, no major changes, was given plts yest per rn 03/07 fatigued on nonrebreather this am, k was given per rn critically low, labs noted 03/08 on nonrebreather, remains on vt k, tpn, no current bleeding, still critically ill 03/09 is on nonrebreather, no bleeding, meds reviewed, on abx Objective Objective Current Medications Medications (Trade) Dose Ordered Sig/Fozia Route PRN Reason Start Time Stop Time Status Last Admin Dose Admin Acetaminophen (Tylenol) 650 mg Q6H PRN ORAL Mild Pain (Pain Scale 1-3) 02/18/20 17:15 03/19/20 17:14 Chlorhexidine Gluconate (Gail-Hex 2%) 1 applic DAILY@2000 TOPIC 02/25/20 20:00 05/25/20 19:59 03/08/20 20:06 Dextrose 1,000 ml @ 0 mls/hr Q24H PRN IV PN interrupted or unavailable 02/29/20 20:00 03/30/20 19:59 Dextrose (Dextrose 50%) 25 ml Q30M PRN IV Hypoglycemia 03/01/20 23:59 05/30/20 23:58 Dextrose (Dextrose 50%) 50 ml Q30M PRN IV Hypoglycemia 02/29/20 23:59 05/29/20 23:58 Dextrose/ Electrolytes 1,000 ml @ 31 mls/hr Q24H IV 02/29/20 20:00 03/30/20 19:59 03/08/20 20:06 Diphenhydramine HCl (Benadryl) 12.5 mg Q6H PRN IVP Itching/Pruritis 02/18/20 17:15 03/19/20 17:14 Fat Emulsion Intravenous 216 ml/Amino Acids/ Electrolytes/ Dextrose 1,656 ml @ 69 mls/hr Q24H IV 03/08/20 20:00 04/07/20 19:59 03/08/20 20:06 Furosemide 100 mg/ Dextrose 100 ml @ 10 mls/hr Q10H IV 03/07/20 12:00 04/06/20 11:59 03/09/20 04:16 Insulin Aspart (NovoLOG) Q6HR SUBQ 03/01/20 00:00 05/30/20 00:00 03/09/20 05:44 Meclizine HCl (Antivert) 25 mg TID PRN ORAL for dizziness 02/20/20 20:30 03/21/20 20:29 Metoprolol Tartrate 2.5 mg/ Dextrose 57.5 ml @ 130 mls/hr EVERY 12 HOURS IVPB 03/03/20 21:00 04/02/20 20:59 03/08/20 20:48 Ondansetron HCl (Zofran) 4 mg Q6H PRN IVP Nausea & Vomiting 02/18/20 17:15 03/19/20 17:14 Phytonadione (Vitamin K) 10 mg ONCE A WEEK SUBQ 03/07/20 09:00 06/05/20 08:59 03/07/20 08:58 Piperacillin Sod/ Tazobactam Sod 3.375 gm/Sodium Chloride 110 ml @ 27.5 mls/hr EVERY 8 HOURS IVPB 03/08/20 06:00 03/15/20 05:59 03/09/20 05:31 Potassium Chloride 100 ml @ 50 mls/hr EVERY 2 HOURS IVPB 03/09/20 09:00 03/09/20 13:59 Promethazine HCl 50 mg/Sodium Chloride 111 ml @ 222 mls/hr Q6H PRN IVPB for dizziness 02/20/20 20:45 03/21/20 20:44 02/20/20 21:42 Last 24 Hour Vital Signs Date Time Temp Pulse Resp B/P (MAP) Pulse Ox O2 Delivery O2 Flow Rate FiO2 03/09/20 07:00 117 29 116/69 (85) 99 03/09/20 06:00 114 36 112/74 (87) 93 03/09/20 05:00 111 30 118/68 (85) 94 03/09/20 04:00 116 03/09/20 04:00 Non-Rebreather 15.0 Non-Rebreather 15.0 03/09/20 04:00 97.4 116 32 139/92 (108) 93 03/09/20 03:00 113 33 125/55 (78) 94 03/09/20 02:00 117 30 134/93 (107) 97 03/09/20 01:00 113 30 96/69 (78) 97 03/09/20 00:00 Non-Rebreather 15.0 Non-Rebreather 15.0 03/09/20 00:00 97.4 118 28 136/85 (102) 100 03/08/20 23:20 112 03/08/20 23:00 112 27 117/94 (102) 97 03/08/20 22:00 109 31 120/68 (85) 98 03/08/20 21:00 117 29 121/92 (102) 99 03/08/20 20:48 116 122/86 03/08/20 20:20 97 Non-Rebreather 15.0 100 03/08/20 20:00 Non-Rebreather 15.0 Non-Rebreather 15.0 03/08/20 20:00 97.8 118 31 112/72 (85) 98 03/08/20 19:39 117 03/08/20 19:00 116 31 129/75 (93) 97 03/08/20 18:00 120 29 123/52 (75) 100 03/08/20 17:00 117 27 124/91 (102) 100 03/08/20 16:00 118 31 132/77 (95) 99 03/08/20 16:00 Non-Rebreather Non-Rebreather 03/08/20 16:00 119 03/08/20 16:00 97.4 03/08/20 15:00 120 30 130/74 (92) 99 03/08/20 14:00 119 33 133/79 (97) 97 03/08/20 13:00 117 30 141/81 (101) 98 03/08/20 12:00 97.2 03/08/20 12:00 116 03/08/20 12:00 Non-Rebreather Non-Rebreather 03/08/20 12:00 115 28 104/55 (71) 98 03/08/20 11:00 114 29 124/88 (100) 98 03/08/20 10:00 110 29 118/84 (95) 98 03/08/20 09:30 104 30 114/68 (83) 98 03/08/20 09:00 118 29 112/78 (89) 100 03/08/20 08:47 119 123/66 03/08/20 08:00 104 03/08/20 08:00 Non-Rebreather Non-Rebreather 03/08/20 08:00 97.4 120 23 123/48 (73) 100 03/08/20 07:00 118 28 115/67 (83) 100 03/08/20 06:00 118 23 128/91 (103) 100 03/08/20 05:00 126 28 118/74 (89) 98 03/08/20 04:00 Non-Rebreather Non-Rebreather 03/08/20 04:00 116 03/08/20 04:00 98.2 114 30 121/81 (94) 99 03/08/20 03:00 114 29 107/76 (86) 99 03/08/20 02:00 115 30 125/73 (90) 99 03/08/20 01:00 113 31 126/77 (93) 83 03/08/20 00:00 98.7 111 34 107/68 (81) 99 03/08/20 00:00 110 03/08/20 00:00 Non-Rebreather Non-Rebreather 03/07/20 23:00 111 29 119/80 (93) 98 03/07/20 22:00 107 27 119/80 (93) 98 03/07/20 21:30 114 125/73 03/07/20 21:00 116 30 125/89 (101) 98 03/07/20 20:00 98.0 117 30 125/76 (92) 98 03/07/20 20:00 Non-Rebreather Non-Rebreather 03/07/20 20:00 118 03/07/20 19:00 117 30 119/66 (83) 98 03/07/20 18:00 116 25 118/63 (81) 96 03/07/20 17:00 115 29 105/68 (80) 96 03/07/20 17:00 116 34 105/68 (80) 97 03/07/20 16:00 116 03/07/20 16:00 97.5 119 32 102/72 (82) 98 03/07/20 16:00 Non-Rebreather Non-Rebreather 03/07/20 15:00 119 30 127/66 (86) 99 03/07/20 14:00 116 31 120/86 (97) 98 03/07/20 13:00 123 29 123/69 (87) 95 03/07/20 12:00 120 28 127/71 (89) 96 03/07/20 12:00 98.4 03/07/20 12:00 Non-Rebreather Non-Rebreather 03/07/20 12:00 121 03/07/20 11:00 124 23 115/91 (99) 95 03/07/20 10:00 116 29 124/89 (101) 98 03/07/20 09:05 123 140/88 03/07/20 09:00 124 31 140/88 (105) 98 03/07/20 08:00 Non-Rebreather Non-Rebreather 03/07/20 08:00 98.2 122 33 111/75 (87) 98 03/07/20 08:00 122 Intake and Output 03/08/20 03/09/20 18:59 06:59 Intake Total 1602.96 ml Output Total 2900 ml 3820 ml Balance -2900 ml -2217.04 ml IV Total 1602.96 ml Output Urine Total 2400 ml 3290 ml Stool Total 500 ml 530 ml Labs Test 03/06/20 08:45 03/06/20 12:21 03/06/20 15:52 03/06/20 23:32 White Blood Count 11.3 K/UL (4.8-10.8) Red Blood Count 2.94 M/UL (4.20-5.40) Hemoglobin 8.9 G/DL (12.0-16.0) Hematocrit 25.2 % (37.0-47.0) Mean Corpuscular Volume 86 FL (80-99) Mean Corpuscular Hemoglobin 30.4 PG (27.0-31.0) Mean Corpuscular Hemoglobin Concent 35.4 G/DL (32.0-36.0) Red Cell Distribution Width 13.1 % (11.6-14.8) Platelet Count 50 K/UL (150-450) Mean Platelet Volume 9.1 FL (6.5-10.1) Neutrophils (%) (Auto) % (45.0-75.0) Lymphocytes (%) (Auto) % (20.0-45.0) Monocytes (%) (Auto) % (1.0-10.0) Eosinophils (%) (Auto) % (0.0-3.0) Basophils (%) (Auto) % (0.0-2.0) Differential Total Cells Counted 100 Neutrophils % (Manual) 57 % (45-75) Lymphocytes % (Manual) 18 % (20-45) Monocytes % (Manual) 12 % (1-10) Eosinophils % (Manual) 0 % (0-3) Basophils % (Manual) 0 % (0-2) Metamyelocytes % 3 % (0-0) Myelocytes % 1 % (0-0) Blast Cells % 2 % (0-0) Band Neutrophils 7 % (0-8) Nucleated Red Blood Cells 14 /100 WBC Platelet Estimate Decreased Platelet Morphology Normal Hypochromasia 2+ Spherocytes 2+ Sodium Level 141 MMOL/L (136-145) Potassium Level 3.2 MMOL/L (3.5-5.1) Chloride Level 109 MMOL/L (98-107) Carbon Dioxide Level 26 MMOL/L (21-32) Anion Gap 6 mmol/L (5-15) Blood Urea Nitrogen 14 mg/dL (7-18) Creatinine 0.5 MG/DL (0.55-1.30) Estimat Glomerular Filtration Rate > 60 mL/min (>60) Glucose Level 151 MG/DL (74-106) Calcium Level 8.0 MG/DL (8.5-10.1) Phosphorus Level 3.5 MG/DL (2.5-4.9) Magnesium Level 1.6 MG/DL (1.8-2.4) Total Bilirubin 0.4 MG/DL (0.2-1.0) Aspartate Amino Transf (AST/SGOT) 32 U/L (15-37) Alanine Aminotransferase (ALT/SGPT) 25 U/L (12-78) Alkaline Phosphatase 179 U/L (46-116) Total Protein 4.9 G/DL (6.4-8.2) Albumin 1.1 G/DL (3.4-5.0) Globulin 3.8 g/dL Albumin/Globulin Ratio 0.3 (1.0-2.7) Triglycerides Level 137 MG/DL (30-150) POC Whole Blood Glucose 175 MG/DL (74-106) Arterial Blood pH 7.471 (7.350-7.450) Arterial Blood Partial Pressure CO2 37.6 mmHg (35.0-45.0) Arterial Blood Partial Pressure O2 117.3 mmHg (75.0-100.0) Arterial Blood HCO3 26.8 mmol/L (22.0-26.0) Arterial Blood Oxygen Saturation 97.4 % (95-100) Arterial Blood Base Excess 3.0 (-2-2) Duong Test Positive Test 03/07/20 04:46 03/07/20 16:20 03/08/20 03:50 03/08/20 05:23 White Blood Count 12.9 K/UL (4.8-10.8) Red Blood Count 2.99 M/UL (4.20-5.40) Hemoglobin 9.1 G/DL (12.0-16.0) Hematocrit 25.7 % (37.0-47.0) Mean Corpuscular Volume 86 FL (80-99) Mean Corpuscular Hemoglobin 30.5 PG (27.0-31.0) Mean Corpuscular Hemoglobin Concent 35.6 G/DL (32.0-36.0) Red Cell Distribution Width 13.7 % (11.6-14.8) Platelet Count 40 K/UL (150-450) Mean Platelet Volume 8.4 FL (6.5-10.1) Neutrophils (%) (Auto) % (45.0-75.0) Lymphocytes (%) (Auto) % (20.0-45.0) Monocytes (%) (Auto) % (1.0-10.0) Eosinophils (%) (Auto) % (0.0-3.0) Basophils (%) (Auto) % (0.0-2.0) Differential Total Cells Counted 100 Neutrophils % (Manual) 55 % (45-75) Lymphocytes % (Manual) 26 % (20-45) Monocytes % (Manual) 7 % (1-10) Eosinophils % (Manual) 0 % (0-3) Basophils % (Manual) 0 % (0-2) Band Neutrophils 12 % (0-8) Nucleated Red Blood Cells 10 /100 WBC Platelet Estimate Decreased Platelet Morphology Normal Hypochromasia 2+ Anisocytosis 1+ Sodium Level 141 MMOL/L (136-145) 145 MMOL/L (136-145) 143 MMOL/L (136-145) Potassium Level 2.7 MMOL/L (3.5-5.1) 3.2 MMOL/L (3.5-5.1) 2.8 MMOL/L (3.5-5.1) Chloride Level 105 MMOL/L (98-107) 105 MMOL/L (98-107) 104 MMOL/L (98-107) Carbon Dioxide Level 30 MMOL/L (21-32) 30 MMOL/L (21-32) 32 MMOL/L (21-32) Anion Gap 6 mmol/L (5-15) 10 mmol/L (5-15) 8 mmol/L (5-15) Blood Urea Nitrogen 13 mg/dL (7-18) 16 mg/dL (7-18) 15 mg/dL (7-18) Creatinine 0.5 MG/DL (0.55-1.30) 0.4 MG/DL (0.55-1.30) 0.6 MG/DL (0.55-1.30) Estimat Glomerular Filtration Rate > 60 mL/min (>60) > 60 mL/min (>60) > 60 mL/min (>60) Glucose Level 141 MG/DL (74-106) 111 MG/DL (74-106) 153 MG/DL (74-106) Calcium Level 7.8 MG/DL (8.5-10.1) 7.3 MG/DL (8.5-10.1) 7.8 MG/DL (8.5-10.1) Magnesium Level 1.8 MG/DL (1.8-2.4) Iron Level 41 ug/dL (50-175) Total Iron Binding Capacity 120 ug/dL (250-450) Percent Iron Saturation 34 % (15-50) Unsaturated Iron Binding 79 ug/dL (112-346) Ferritin 1373 NG/ML (8-388) Total Bilirubin 0.4 MG/DL (0.2-1.0) Aspartate Amino Transf (AST/SGOT) 36 U/L (15-37) Alanine Aminotransferase (ALT/SGPT) 18 U/L (12-78) Alkaline Phosphatase 197 U/L (46-116) Total Protein 4.5 G/DL (6.4-8.2) Albumin 1.1 G/DL (3.4-5.0) Globulin 3.4 g/dL Albumin/Globulin Ratio 0.3 (1.0-2.7) Phosphorus Level 3.6 MG/DL (2.5-4.9) Test 03/09/20 03:45 White Blood Count 22.6 K/UL (4.8-10.8) Red Blood Count 2.92 M/UL (4.20-5.40) Hemoglobin 9.0 G/DL (12.0-16.0) Hematocrit 25.3 % (37.0-47.0) Mean Corpuscular Volume 86 FL (80-99) Mean Corpuscular Hemoglobin 30.7 PG (27.0-31.0) Mean Corpuscular Hemoglobin Concent 35.5 G/DL (32.0-36.0) Red Cell Distribution Width 13.8 % (11.6-14.8) Platelet Count 73 K/UL (150-450) Mean Platelet Volume 10.6 FL (6.5-10.1) Neutrophils (%) (Auto) % (45.0-75.0) Lymphocytes (%) (Auto) % (20.0-45.0) Monocytes (%) (Auto) % (1.0-10.0) Eosinophils (%) (Auto) % (0.0-3.0) Basophils (%) (Auto) % (0.0-2.0) Sodium Level 144 MMOL/L (136-145) Potassium Level 3.0 MMOL/L (3.5-5.1) Chloride Level 102 MMOL/L (98-107) Carbon Dioxide Level 35 MMOL/L (21-32) Anion Gap 7 mmol/L (5-15) Blood Urea Nitrogen 17 mg/dL (7-18) Creatinine 0.6 MG/DL (0.55-1.30) Estimat Glomerular Filtration Rate > 60 mL/min (>60) Glucose Level 129 MG/DL (74-106) Calcium Level 7.9 MG/DL (8.5-10.1) Phosphorus Level 3.8 MG/DL (2.5-4.9) Magnesium Level 1.4 MG/DL (1.8-2.4) Height (Feet): 5 Height (Inches): 4.00 Weight (Pounds): 113 Objective General: NAD HEENT: nc, at Neck: supple Chest:dec breath sounds bilaterally, FM++ Cardiovascular: RRR, no s3, s4 Abdomen: soft, nontender, nd, ++surgical site noted, c/d/i, healing ++ Extremities: no cce, normal range of motion Neuro: alert and oriented Gustavo Mon MD Mar 09, 2020 07:40
--- NOTE | 2020-03-09 08:33 | NUR ---
RD ASSESSMENT & RECOMMENDATIONS SEE CARE ACTIVITY FOR COMPLETE ASSESSMENT DAILY ESTIMATED NEEDS: Needs based on GI, surgery, cancer 50.4kg 25-35 kcals/kg 4888-2058 total kcals 1-2 g protein/kg 50-100 g total protein 25-35ml/kcal mL/kg 9457-0952 total fluid mLs NUTRITION DIAGNOSIS: Altered GI fxn r/t bowel obstruction as evidenced by CT scan, last bm unknown, adm w/ distended abdomen, N/V w/ recent poor po intake, s/p ex lap, left colectomy and partial omentectomy, previously on CLD w/ poor intake, now NPO, on TPN. CURRENT DIET:npo PO DIET RECOMMENDATIONS: Per PARENTERAL NUTRITION RECOMMENDATIONS: D/AA Rate: 60 IL Rate: 9 Total Rate: 69 Volume: 1656 % Dextrose: 16 % AA: 5.4 Energy (kcals/kg): 1526 Protein (g/kg protein): 78 Nonprotein KCALS: 1264 GIR (mg CHO/kg/min): 3.2 % Fat KCALS: 28 NPC: N Ratio: 97:1 TPN Comment: TPN currently based on initial bed scale wt of 50.4kg, now currently at 74.9kg w/ P200 mattress, w/ adj wt of 62.9kg. - D16%, AA 5.4% @60ml/hr + IL 20% @9ml.hr-> total of 69ml/hr, all 3:1. - Maintain at goal rate. - GIR<5 - IL <30% ADDITIONAL RECOMMENDATIONS: 1) Monitor NPO status-> on TPN Rec recalibrated bed scale wts s/p multiple floor transfers 2) Monitor lytes, replete as needed-> low K and mag 3) Calibrated bedscale wt- w/ added p200 mattress and SCDs w/ pumps 4) W/ TPN: monitor BG, Lytes, and LFT's. 5) F/up w/ WC eval .
[2020-03-09] MEDS: Metoprolol Tartrate 2.5 MG in D5W 55 ML IVPB SCH ×2 (08:58→22:05)
[2020-03-09] MEDS: Magnesium Sulfate 1gm/100ml IVPB SCH ×2 (09:46→11:40)
--- NOTE | 2020-03-09 10:00 | NUR ---
NURSE NOTES: Patient stable at this time. Patient pulled off mask, desaturated to 30's and respirations to 8. Once mask was replaced and air from bag squeezed in patient returned to baseline respirations and o2 in high 90's. Patient sat up at this time.
--- NOTE | 2020-03-09 10:49 | Pulmonology Progress Note ---
Subjective ROS Limited/Unobtainable: Yes Interval Events: S/p colectomy; followed by surgery; now in ICU Constitutional: Reports: no symptoms HEENT: Repors: no symptoms Respiratory: Reports: no symptoms Cardiovascular: Reports: no symptoms Gastrointestinal/Abdominal: Reports: constipation, bloating Genitourinary: Reports: no symptoms Allergies: Coded Allergies: No Known Allergies (Unverified , 02/15/20) All Systems: reviewed and negative except above Objective Last 24 Hour Vital Signs Date Time Temp Pulse Resp B/P (MAP) Pulse Ox O2 Delivery O2 Flow Rate FiO2 03/09/20 08:58 119 119/63 03/09/20 08:00 Non-Rebreather 15.0 Non-Rebreather 15.0 03/09/20 08:00 120 03/09/20 07:41 90 Non-Rebreather 15.0 100 03/09/20 07:00 117 29 116/69 (85) 99 03/09/20 06:00 114 36 112/74 (87) 93 03/09/20 05:00 111 30 118/68 (85) 94 03/09/20 04:00 116 03/09/20 04:00 Non-Rebreather 15.0 Non-Rebreather 15.0 03/09/20 04:00 97.4 116 32 139/92 (108) 93 03/09/20 03:00 113 33 125/55 (78) 94 03/09/20 02:00 117 30 134/93 (107) 97 03/09/20 01:00 113 30 96/69 (78) 97 03/09/20 00:00 Non-Rebreather 15.0 Non-Rebreather 15.0 03/09/20 00:00 97.4 118 28 136/85 (102) 100 03/08/20 23:20 112 03/08/20 23:00 112 27 117/94 (102) 97 03/08/20 22:00 109 31 120/68 (85) 98 03/08/20 21:00 117 29 121/92 (102) 99 03/08/20 20:48 116 122/86 03/08/20 20:20 97 Non-Rebreather 15.0 100 03/08/20 20:00 Non-Rebreather 15.0 Non-Rebreather 15.0 03/08/20 20:00 97.8 118 31 112/72 (85) 98 03/08/20 19:39 117 03/08/20 19:00 116 31 129/75 (93) 97 03/08/20 18:00 120 29 123/52 (75) 100 03/08/20 17:00 117 27 124/91 (102) 100 03/08/20 16:00 118 31 132/77 (95) 99 03/08/20 16:00 Non-Rebreather Non-Rebreather 03/08/20 16:00 119 03/08/20 16:00 97.4 03/08/20 15:00 120 30 130/74 (92) 99 03/08/20 14:00 119 33 133/79 (97) 97 03/08/20 13:00 117 30 141/81 (101) 98 03/08/20 12:00 97.2 03/08/20 12:00 116 03/08/20 12:00 Non-Rebreather Non-Rebreather 03/08/20 12:00 115 28 104/55 (71) 98 03/08/20 11:00 114 29 124/88 (100) 98 Intake and Output 03/08/20 03/09/20 19:00 07:00 Intake Total 211.66 ml 1528.8 ml Output Total 3400 ml 3420 ml Balance -3188.34 ml -1891.2 ml IV Total 211.66 ml 1528.8 ml Output Urine Total 2400 ml 3390 ml Stool Total 1000 ml 30 ml General Appearance: no acute distress HEENT: normocephalic Respiratory: chest wall non-tender, lungs clear Cardiovascular: normal peripheral pulses Abdomen: non distended, absent bowel sounds Laboratory Tests 03/09/20 03:45: White Blood Count 22.6*H, Red Blood Count 2.92L, Hemoglobin 9.0L, Hematocrit 25.3L, Mean Corpuscular Volume 86, Mean Corpuscular Hemoglobin 30.7, Mean Corpuscular Hemoglobin Concent 35.5, Red Cell Distribution Width 13.8, Platelet Count 73L, Mean Platelet Volume 10.6H, Neutrophils (%) (Auto) , Lymphocytes (%) (Auto) , Monocytes (%) (Auto) , Eosinophils (%) (Auto) , Basophils (%) (Auto) , Differential Total Cells Counted 100, Neutrophils % (Manual) 34L, Lymphocytes % (Manual) 18L, Monocytes % (Manual) 5, Eosinophils % (Manual) 0, Basophils % (Manual) 0, Metamyelocytes % 10H, Myelocytes % 6H, Blast Cells % 4*H, Band Neutrophils 23H, Nucleated Red Blood Cells 4, Platelet Estimate DecreasedL, Platelet Morphology Normal, Polychromasia 1+, Sodium Level 144, Potassium Level 3.0L, Chloride Level 102, Carbon Dioxide Level 35H, Anion Gap 7, Blood Urea Nitrogen 17, Creatinine 0.6, Estimat Glomerular Filtration Rate > 60, Glucose Level 129H, Calcium Level 7.9L, Phosphorus Level 3.8, Magnesium Level 1.4L Current Medications Medications (Trade) Dose Ordered Sig/Fozia Route PRN Reason Start Time Stop Time Status Last Admin Dose Admin Acetaminophen (Tylenol) 650 mg Q6H PRN ORAL Mild Pain (Pain Scale 1-3) 02/18/20 17:15 03/19/20 17:14 Chlorhexidine Gluconate (Gail-Hex 2%) 1 applic DAILY@2000 TOPIC 02/25/20 20:00 05/25/20 19:59 03/08/20 20:06 Dextrose 1,000 ml @ 0 mls/hr Q24H PRN IV PN interrupted or unavailable 02/29/20 20:00 03/30/20 19:59 Dextrose (Dextrose 50%) 25 ml Q30M PRN IV Hypoglycemia 03/01/20 23:59 05/30/20 23:58 Dextrose (Dextrose 50%) 50 ml Q30M PRN IV Hypoglycemia 02/29/20 23:59 05/29/20 23:58 Dextrose/ Electrolytes 1,000 ml @ 31 mls/hr Q24H IV 02/29/20 20:00 03/30/20 19:59 03/08/20 20:06 Diphenhydramine HCl (Benadryl) 12.5 mg Q6H PRN IVP Itching/Pruritis 02/18/20 17:15 03/19/20 17:14 Fat Emulsion Intravenous 216 ml/Amino Acids/ Electrolytes/ Dextrose 1,656 ml @ 69 mls/hr Q24H IV 03/08/20 20:00 04/07/20 19:59 03/08/20 20:06 Furosemide 100 mg/ Dextrose 100 ml @ 10 mls/hr Q10H IV 03/07/20 12:00 04/06/20 11:59 03/09/20 04:16 Insulin Aspart (NovoLOG) Q6HR SUBQ 03/01/20 00:00 05/30/20 00:00 03/09/20 05:44 Magnesium Sulfate 100 ml @ 100 mls/hr Q1H IVPB 03/09/20 10:00 03/09/20 11:59 03/09/20 09:46 Meclizine HCl (Antivert) 25 mg TID PRN ORAL for dizziness 02/20/20 20:30 03/21/20 20:29 Metoprolol Tartrate 2.5 mg/ Dextrose 57.5 ml @ 130 mls/hr EVERY 12 HOURS IVPB 03/03/20 21:00 04/02/20 20:59 03/09/20 08:58 Ondansetron HCl (Zofran) 4 mg Q6H PRN IVP Nausea & Vomiting 02/18/20 17:15 03/19/20 17:14 Phytonadione (Vitamin K) 10 mg ONCE A WEEK SUBQ 03/07/20 09:00 06/05/20 08:59 03/07/20 08:58 Piperacillin Sod/ Tazobactam Sod 3.375 gm/Sodium Chloride 110 ml @ 27.5 mls/hr EVERY 8 HOURS IVPB 03/08/20 06:00 03/15/20 05:59 03/09/20 05:31 Potassium Chloride 100 ml @ 50 mls/hr EVERY 2 HOURS IVPB 03/09/20 09:00 03/09/20 13:59 03/09/20 08:55 Promethazine HCl 50 mg/Sodium Chloride 111 ml @ 222 mls/hr Q6H PRN IVPB for dizziness 02/20/20 20:45 03/21/20 20:44 02/20/20 21:42 Assessment/Plan Assessment/Plan IMPRESSION: 1. S/p laparotomy 2. Severe hypokalemia. Corrected 3. Hypertension. 4. Diuretic use. DISCUSSION: Replaced potassium. S/P laparotomy I will continue to follow carefully. Await return of bowel fxn GI and renal following Saturating better on NRBM On Lasix gtt Edema decreased Discussed with gen surgery Will re-attempt PO diet Discussed with surgery Grim prognosis Notify patients family? Hanna Cline Omar Syed MD Mar 09, 2020 10:49
--- NOTE | 2020-03-09 12:00 | NUR ---
NURSE NOTES: Patient stable at this time. No s/sx of pain or distress at this time. Patient observed pulling off NRB mask several times and immediately desaturates with labored breathing and gasping.
--- NOTE | 2020-03-09 12:22 | General Progress Note ---
Subjective ROS Limited/Unobtainable: No Allergies: Coded Allergies: No Known Allergies (Unverified , 02/15/20) Objective Last 24 Hour Vital Signs Date Time Temp Pulse Resp B/P (MAP) Pulse Ox O2 Delivery O2 Flow Rate FiO2 03/09/20 12:00 110 03/09/20 12:00 111 25 111/81 (91) 99 03/09/20 11:00 110 33 119/80 (93) 94 03/09/20 10:00 107 33 116/75 (89) 94 03/09/20 09:00 105 32 110/64 (79) 97 03/09/20 08:58 119 119/63 03/09/20 08:00 116 30 109/71 (84) 98 03/09/20 08:00 Non-Rebreather 15.0 Non-Rebreather 15.0 03/09/20 08:00 120 03/09/20 07:41 90 Non-Rebreather 15.0 100 03/09/20 07:00 117 29 116/69 (85) 99 03/09/20 06:00 114 36 112/74 (87) 93 03/09/20 05:00 111 30 118/68 (85) 94 03/09/20 04:00 116 03/09/20 04:00 Non-Rebreather 15.0 Non-Rebreather 15.0 03/09/20 04:00 97.4 116 32 139/92 (108) 93 03/09/20 03:00 113 33 125/55 (78) 94 03/09/20 02:00 117 30 134/93 (107) 97 03/09/20 01:00 113 30 96/69 (78) 97 03/09/20 00:00 Non-Rebreather 15.0 Non-Rebreather 15.0 03/09/20 00:00 97.4 118 28 136/85 (102) 100 03/08/20 23:20 112 03/08/20 23:00 112 27 117/94 (102) 97 03/08/20 22:00 109 31 120/68 (85) 98 03/08/20 21:00 117 29 121/92 (102) 99 03/08/20 20:48 116 122/86 03/08/20 20:20 97 Non-Rebreather 15.0 100 03/08/20 20:00 Non-Rebreather 15.0 Non-Rebreather 15.0 03/08/20 20:00 97.8 118 31 112/72 (85) 98 03/08/20 19:39 117 03/08/20 19:00 116 31 129/75 (93) 97 03/08/20 18:00 120 29 123/52 (75) 100 03/08/20 17:00 117 27 124/91 (102) 100 03/08/20 16:00 118 31 132/77 (95) 99 03/08/20 16:00 Non-Rebreather Non-Rebreather 03/08/20 16:00 119 03/08/20 16:00 97.4 03/08/20 15:00 120 30 130/74 (92) 99 03/08/20 14:00 119 33 133/79 (97) 97 03/08/20 13:00 117 30 141/81 (101) 98 Intake and Output 03/08/20 03/09/20 19:00 07:00 Intake Total 211.66 ml 1528.8 ml Output Total 3400 ml 3420 ml Balance -3188.34 ml -1891.2 ml IV Total 211.66 ml 1528.8 ml Output Urine Total 2400 ml 3390 ml Stool Total 1000 ml 30 ml Laboratory Tests 03/09/20 03:45: White Blood Count 22.6*H, Red Blood Count 2.92L, Hemoglobin 9.0L, Hematocrit 25.3L, Mean Corpuscular Volume 86, Mean Corpuscular Hemoglobin 30.7, Mean Corpuscular Hemoglobin Concent 35.5, Red Cell Distribution Width 13.8, Platelet Count 73L, Mean Platelet Volume 10.6H, Neutrophils (%) (Auto) , Lymphocytes (%) (Auto) , Monocytes (%) (Auto) , Eosinophils (%) (Auto) , Basophils (%) (Auto) , Differential Total Cells Counted 100, Neutrophils % (Manual) 34L, Lymphocytes % (Manual) 18L, Monocytes % (Manual) 5, Eosinophils % (Manual) 0, Basophils % (Manual) 0, Metamyelocytes % 10H, Myelocytes % 6H, Blast Cells % 4*H, Band Neutrophils 23H, Nucleated Red Blood Cells 4, Platelet Estimate DecreasedL, Platelet Morphology Normal, Polychromasia 1+, Sodium Level 144, Potassium Level 3.0L, Chloride Level 102, Carbon Dioxide Level 35H, Anion Gap 7, Blood Urea Nitrogen 17, Creatinine 0.6, Estimat Glomerular Filtration Rate > 60, Glucose Level 129H, Calcium Level 7.9L, Phosphorus Level 3.8, Magnesium Level 1.4L Height (Feet): 5 Height (Inches): 4.00 Weight (Pounds): 113 General Appearance: no apparent distress EENT: normal ENT inspection Neck: supple Cardiovascular: normal rate Respiratory/Chest: decreased breath sounds Abdomen: hypoactive bowel sounds, decreased bowel sounds, tender Extremities: non-tender Assessment/Plan Problem List: (1) Large bowel obstruction ICD Codes: K56.609 - Unspecified intestinal obstruction, unspecified as to partial versus complete obstruction SNOMED: 876403282 (2) Hypokalemia ICD Codes: E87.6 - Hypokalemia SNOMED: 41981236 (3) Lightheaded ICD Codes: R42 - Dizziness and giddiness SNOMED: 826432947 (4) Pancytopenia ICD Codes: D61.818 - Other pancytopenia SNOMED: 080727524 (5) Colon cancer ICD Codes: C18.9 - Malignant neoplasm of colon, unspecified SNOMED: 629327474 Status: stable Assessment/Plan: colon cancer with bowel obstruction s/p resection s/p plt transfusion on TPN NPO abx per ID fu hem recs fu surg recs on restrains on 100 % non breather poor prognosis will fu Graeme Hirsch MD Mar 09, 2020 12:22
--- NOTE | 2020-03-09 12:56 | Diagnostic Imaging Report ---
Indication: Chest pain Technique: One view of the chest Comparison: 03/06/2020 Findings: Bilateral diffuse extensive infiltrates versus edema appears stable to minimally worsened. There are probably bilateral pleural effusions Impression: Stable or perhaps slightly worse bilateral infiltrates versus edema.
--- NOTE | 2020-03-09 13:49 | NUR ---
NURSE NOTES: Patient stable at this time. No s/sx of pain or distress.
--- NOTE | 2020-03-09 15:01 | Cardiac Electrophysiology PN ---
Assessment/Plan Assessment/Plan 1. Nonsustained VT 5 beats. No recurrence after hypokalemia corrected. EF 55%. On iv metoprolol 2.5 mg q 12 2. Sinus tach and anemia better on Metoprolol 2.5 iv bid and after PRBC 3. Bowel obstruction. S/P ex lap, left colectomy, mobilization of splenic flexure by Dr Brito, Gi and surgery. 4. Hypokalemia replaced with iv K and Mg. 5. PVCs and dizziness 6. Anemia with Hb 6.9. s/p PRBC 02/26/20 . S/P CT abdomen and pelvis 7. Respiratory failure. On 100% NRB FM. CXR reviewed. Continue Lasix drip at 10 mg/hr Right pleural effusion. May need thoracentesis 8. On Vit K weekly per Dr. Brito for TPN. DW RN, Dr Bassett and Dr Mayer Subjective Subjective In ICU on Lasix drip at 10 mg/hr and 100% NRB FM In NSR on Lopressor 2.5 iv bid. NPO on TPN and Lipids. Lethargic. Objective Last 24 Hour Vital Signs Date Time Temp Pulse Resp B/P (MAP) Pulse Ox O2 Delivery O2 Flow Rate FiO2 03/09/20 14:00 114 32 124/80 (95) 97 03/09/20 13:00 113 30 135/98 (110) 03/09/20 12:00 110 03/09/20 12:00 111 25 111/81 (91) 99 03/09/20 12:00 97.4 03/09/20 12:00 Non-Rebreather 15.0 Non-Rebreather 15.0 03/09/20 11:00 110 33 119/80 (93) 94 03/09/20 10:00 107 33 116/75 (89) 94 03/09/20 09:00 105 32 110/64 (79) 97 03/09/20 08:58 119 119/63 03/09/20 08:00 116 30 109/71 (84) 98 03/09/20 08:00 97.3 03/09/20 08:00 Non-Rebreather 15.0 Non-Rebreather 15.0 03/09/20 08:00 120 03/09/20 07:41 90 Non-Rebreather 15.0 100 03/09/20 07:00 117 29 116/69 (85) 99 03/09/20 06:00 114 36 112/74 (87) 93 03/09/20 05:00 111 30 118/68 (85) 94 03/09/20 04:00 116 03/09/20 04:00 Non-Rebreather 15.0 Non-Rebreather 15.0 03/09/20 04:00 97.4 116 32 139/92 (108) 93 03/09/20 03:00 113 33 125/55 (78) 94 03/09/20 02:00 117 30 134/93 (107) 97 03/09/20 01:00 113 30 96/69 (78) 97 03/09/20 00:00 Non-Rebreather 15.0 Non-Rebreather 15.0 03/09/20 00:00 97.4 118 28 136/85 (102) 100 03/08/20 23:20 112 03/08/20 23:00 112 27 117/94 (102) 97 03/08/20 22:00 109 31 120/68 (85) 98 03/08/20 21:00 117 29 121/92 (102) 99 03/08/20 20:48 116 122/86 03/08/20 20:20 97 Non-Rebreather 15.0 100 03/08/20 20:00 Non-Rebreather 15.0 Non-Rebreather 15.0 03/08/20 20:00 97.8 118 31 112/72 (85) 98 03/08/20 19:39 117 03/08/20 19:00 116 31 129/75 (93) 97 03/08/20 18:00 120 29 123/52 (75) 100 03/08/20 17:00 117 27 124/91 (102) 100 03/08/20 16:00 118 31 132/77 (95) 99 03/08/20 16:00 Non-Rebreather Non-Rebreather 03/08/20 16:00 119 03/08/20 16:00 97.4 03/08/20 15:00 120 30 130/74 (92) 99 Intake and Output 03/08/20 03/09/20 19:00 07:00 Intake Total 211.66 ml 1528.8 ml Output Total 3400 ml 3420 ml Balance -3188.34 ml -1891.2 ml IV Total 211.66 ml 1528.8 ml Output Urine Total 2400 ml 3390 ml Stool Total 1000 ml 30 ml Laboratory Tests Test 03/09/20 03:45 White Blood Count 22.6 K/UL (4.8-10.8) *H Red Blood Count 2.92 M/UL (4.20-5.40) L Hemoglobin 9.0 G/DL (12.0-16.0) L Hematocrit 25.3 % (37.0-47.0) L Mean Corpuscular Volume 86 FL (80-99) Mean Corpuscular Hemoglobin 30.7 PG (27.0-31.0) Mean Corpuscular Hemoglobin Concent 35.5 G/DL (32.0-36.0) Red Cell Distribution Width 13.8 % (11.6-14.8) Platelet Count 73 K/UL (150-450) L Mean Platelet Volume 10.6 FL (6.5-10.1) H Neutrophils (%) (Auto) % (45.0-75.0) Lymphocytes (%) (Auto) % (20.0-45.0) Monocytes (%) (Auto) % (1.0-10.0) Eosinophils (%) (Auto) % (0.0-3.0) Basophils (%) (Auto) % (0.0-2.0) Differential Total Cells Counted 100 Neutrophils % (Manual) 34 % (45-75) L Lymphocytes % (Manual) 18 % (20-45) L Monocytes % (Manual) 5 % (1-10) Eosinophils % (Manual) 0 % (0-3) Basophils % (Manual) 0 % (0-2) Metamyelocytes % 10 % (0-0) H Myelocytes % 6 % (0-0) H Blast Cells % 4 % (0-0) *H Band Neutrophils 23 % (0-8) H Nucleated Red Blood Cells 4 /100 WBC Platelet Estimate Decreased L Platelet Morphology Normal Polychromasia 1+ Sodium Level 144 MMOL/L (136-145) Potassium Level 3.0 MMOL/L (3.5-5.1) L Chloride Level 102 MMOL/L (98-107) Carbon Dioxide Level 35 MMOL/L (21-32) H Anion Gap 7 mmol/L (5-15) Blood Urea Nitrogen 17 mg/dL (7-18) Creatinine 0.6 MG/DL (0.55-1.30) Estimat Glomerular Filtration Rate > 60 mL/min (>60) Glucose Level 129 MG/DL (74-106) H Calcium Level 7.9 MG/DL (8.5-10.1) L Phosphorus Level 3.8 MG/DL (2.5-4.9) Magnesium Level 1.4 MG/DL (1.8-2.4) L Objective HEENT: No JVD Cardiovascular: RRR. No GRM Respiratory: Coarse Rhonchi Abdomen: Soft, non-tender. Jessica intact with no drain Extremities: 3 plus edema Peter Quintana MD Mar 09, 2020 15:01
--- NOTE | 2020-03-09 15:09 | Nephrology Progress Note ---
Assessment/Plan Plan #hypoxemic resp failure - on nonrebreather mask #Severe hypokalemia #Abdominal distention - bowel obstruction due to colonic mass- s/p resection #lactic acidosis #htn #Dehydration #HLD - remains on lasix drip - replete k and mag - on non rebreather mask - TPN - replete lytes - monitor lactic acidic level - replete K, elvi mag - IVF-base --D5NS + 40 kcl with TPN - replete K, mag and phos prn - NPO - monitor lytes - avoid nephrotoxins - gen surg eval Subjective ROS Limited/Unobtainable: No Constitutional: Reports: weakness HEENT: Denies: no symptoms, eye pain, blurred vision, tearing, double vision, ear pain, ear discharge, nose pain, nose congestion, throat pain, throat swelling, mouth pain, mouth swelling, other Genitourinary: Denies: no symptoms, burning, discharge, frequency, flank pain, hematuria, incontinence, pain, urgency, other Neurologic/Psychiatric: Denies: no symptoms, anxiety, depressed, emotional problems, headache, numbness, paresthesia, pre-existing deficit, seizure, tingling, tremors, weakness, other Subjective on nonrebreather mask remains on on lasix drip K and mag repleted s/p resection CT with mets to omentum Objective Objective Last 24 Hour Vital Signs Date Time Temp Pulse Resp B/P (MAP) Pulse Ox O2 Delivery O2 Flow Rate FiO2 03/09/20 15:00 116 33 104/68 (80) 97 03/09/20 14:00 114 32 124/80 (95) 97 03/09/20 13:00 113 30 135/98 (110) 03/09/20 12:00 110 03/09/20 12:00 111 25 111/81 (91) 99 03/09/20 12:00 97.4 03/09/20 12:00 Non-Rebreather 15.0 Non-Rebreather 15.0 03/09/20 11:00 110 33 119/80 (93) 94 03/09/20 10:00 107 33 116/75 (89) 94 03/09/20 09:00 105 32 110/64 (79) 97 03/09/20 08:58 119 119/63 03/09/20 08:00 116 30 109/71 (84) 98 10/8/20 08:00 97.3 03/09/20 08:00 Non-Rebreather 15.0 Non-Rebreather 15.0 03/09/20 08:00 120 03/09/20 07:41 90 Non-Rebreather 15.0 100 03/09/20 07:00 117 29 116/69 (85) 99 03/09/20 06:00 114 36 112/74 (87) 93 03/09/20 05:00 111 30 118/68 (85) 94 03/09/20 04:00 116 03/09/20 04:00 Non-Rebreather 15.0 Non-Rebreather 15.0 03/09/20 04:00 97.4 116 32 139/92 (108) 93 03/09/20 03:00 113 33 125/55 (78) 94 03/09/20 02:00 117 30 134/93 (107) 97 03/09/20 01:00 113 30 96/69 (78) 97 03/09/20 00:00 Non-Rebreather 15.0 Non-Rebreather 15.0 03/09/20 00:00 97.4 118 28 136/85 (102) 100 03/08/20 23:20 112 03/08/20 23:00 112 27 117/94 (102) 97 03/08/20 22:00 109 31 120/68 (85) 98 03/08/20 21:00 117 29 121/92 (102) 99 03/08/20 20:48 116 122/86 03/08/20 20:20 97 Non-Rebreather 15.0 100 03/08/20 20:00 Non-Rebreather 15.0 Non-Rebreather 15.0 03/08/20 20:00 97.8 118 31 112/72 (85) 98 03/08/20 19:39 117 03/08/20 19:00 116 31 129/75 (93) 97 03/08/20 18:00 120 29 123/52 (75) 100 03/08/20 17:00 117 27 124/91 (102) 100 03/08/20 16:00 118 31 132/77 (95) 99 03/08/20 16:00 Non-Rebreather Non-Rebreather 03/08/20 16:00 119 10/7/20 16:00 97.4 Intake and Output 03/08/20 03/09/20 19:00 07:00 Intake Total 211.66 ml 1528.8 ml Output Total 3400 ml 3420 ml Balance -3188.34 ml -1891.2 ml IV Total 211.66 ml 1528.8 ml Output Urine Total 2400 ml 3390 ml Stool Total 1000 ml 30 ml Laboratory Tests 03/09/20 03:45: White Blood Count 22.6*H, Red Blood Count 2.92L, Hemoglobin 9.0L, Hematocrit 25.3L, Mean Corpuscular Volume 86, Mean Corpuscular Hemoglobin 30.7, Mean Corpuscular Hemoglobin Concent 35.5, Red Cell Distribution Width 13.8, Platelet Count 73L, Mean Platelet Volume 10.6H, Neutrophils (%) (Auto) , Lymphocytes (%) (Auto) , Monocytes (%) (Auto) , Eosinophils (%) (Auto) , Basophils (%) (Auto) , Differential Total Cells Counted 100, Neutrophils % (Manual) 34L, Lymphocytes % (Manual) 18L, Monocytes % (Manual) 5, Eosinophils % (Manual) 0, Basophils % (Manual) 0, Metamyelocytes % 10H, Myelocytes % 6H, Blast Cells % 4*H, Band Neutrophils 23H, Nucleated Red Blood Cells 4, Platelet Estimate DecreasedL, Platelet Morphology Normal, Polychromasia 1+, Sodium Level 144, Potassium Level 3.0L, Chloride Level 102, Carbon Dioxide Level 35H, Anion Gap 7, Blood Urea Nitrogen 17, Creatinine 0.6, Estimat Glomerular Filtration Rate > 60, Glucose Level 129H, Calcium Level 7.9L, Phosphorus Level 3.8, Magnesium Level 1.4L Height (Feet): 5 Height (Inches): 4.00 Weight (Pounds): 113 Yakelin Arnett M.D. Mar 09, 2020 15:09
--- NOTE | 2020-03-09 16:00 | NUR ---
NURSE NOTES: Patient stable at this time. No s/sx of pain or distress.
--- NOTE | 2020-03-09 16:17 | NUR ---
BUSINESS DEVELOPMENT ANALYST NOTE Pt's case was discussed during CM meeting. Bioethics meeting will be held on 03/10/2020 at 12:15pm.
--- NOTE | 2020-03-09 16:21 | Surgery Progress Note ---
Surgery Progress Note Subjective Procedure Performed ex lap left colectomy mobilization of splenic flexure omentectomy primary anastomosis Additional Comments Long discussion was had with the patient and medical teams today. Patient is progressively worsening increase oxygen requirement worsening labs initially leukopenia and now leukocytosis. Hematologic abnormality unknown and acute and severe postoperatively. Unable to find exact etiology and very concerning. Patient is awake alert responsive. Her abdomen is become less distended and her rectal tube is putting out liquid stool. She has no abdominal tenderness and states she is okay. I did explain to her recently multiple events slowly the she has stage IV cancer and we have discussed her current status. Patient has been adamant that she is doing well and improving though she is clinically declining. Patient initially at time of surgery and postoperatively was very clear that she did not want me to contact family. Today I reiterated to her the importance of discussing this with family as she is declining. Patient seems to slowly be grasping and understanding of the severity of her condition both beginning preoperatively and now postoperatively. She has allowed me permission to contact her family. I initially contacted Alysia her cousin in [place] who had asked me to contact Emory who is the eldest cousin of Ms. Cagle. I spoke with Alysia and she consented to me speaking with her eldest cousin Emory. I spoke with Emory and examined to him the severity of her condition and her current status. Objective Last 24 Hour Vital Signs Date Time Temp Pulse Resp B/P (MAP) Pulse Ox O2 Delivery O2 Flow Rate FiO2 03/09/20 16:00 111 03/09/20 16:00 Non-Rebreather 15.0 Non-Rebreather 15.0 03/09/20 16:00 112 31 111/67 (82) 94 03/09/20 15:00 116 33 104/68 (80) 97 03/09/20 14:00 114 32 124/80 (95) 97 03/09/20 13:00 113 30 135/98 (110) 03/09/20 12:00 110 03/09/20 12:00 111 25 111/81 (91) 99 03/09/20 12:00 97.4 03/09/20 12:00 Non-Rebreather 15.0 Non-Rebreather 15.0 03/09/20 11:00 110 33 119/80 (93) 94 03/09/20 10:00 107 33 116/75 (89) 94 03/09/20 09:00 105 32 110/64 (79) 97 03/09/20 08:58 119 119/63 03/09/20 08:00 116 30 109/71 (84) 98 03/09/20 08:00 97.3 03/09/20 08:00 Non-Rebreather 15.0 Non-Rebreather 15.0 03/09/20 08:00 120 03/09/20 07:41 90 Non-Rebreather 15.0 100 03/09/20 07:00 117 29 116/69 (85) 99 03/09/20 06:00 114 36 112/74 (87) 93 03/09/20 05:00 111 30 118/68 (85) 94 03/09/20 04:00 116 03/09/20 04:00 Non-Rebreather 15.0 Non-Rebreather 15.0 03/09/20 04:00 97.4 116 32 139/92 (108) 93 03/09/20 03:00 113 33 125/55 (78) 94 03/09/20 02:00 117 30 134/93 (107) 97 03/09/20 01:00 113 30 96/69 (78) 97 03/09/20 00:00 Non-Rebreather 15.0 Non-Rebreather 15.0 03/09/20 00:00 97.4 118 28 136/85 (102) 100 03/08/20 23:20 112 03/08/20 23:00 112 27 117/94 (102) 97 03/08/20 22:00 109 31 120/68 (85) 98 03/08/20 21:00 117 29 121/92 (102) 99 03/08/20 20:48 116 122/86 03/08/20 20:20 97 Non-Rebreather 15.0 100 03/08/20 20:00 Non-Rebreather 15.0 Non-Rebreather 15.0 03/08/20 20:00 97.8 118 31 112/72 (85) 98 03/08/20 19:39 117 03/08/20 19:00 116 31 129/75 (93) 97 03/08/20 18:00 120 29 123/52 (75) 100 03/08/20 17:00 117 27 124/91 (102) 100 I&O Intake and Output 03/08/20 03/09/20 19:00 07:00 Intake Total 211.66 ml 1528.8 ml Output Total 3400 ml 3420 ml Balance -3188.34 ml -1891.2 ml IV Total 211.66 ml 1528.8 ml Output Urine Total 2400 ml 3390 ml Stool Total 1000 ml 30 ml Cardiovascular: RSR Respiratory: decreased breath sounds Abdomen: soft, non-tender, present bowel sounds, non-distended Extremities: edema, no tenderness, no cyanosis Laboratory Tests Test 03/09/20 03:45 White Blood Count 22.6 K/UL (4.8-10.8) *H Red Blood Count 2.92 M/UL (4.20-5.40) L Hemoglobin 9.0 G/DL (12.0-16.0) L Hematocrit 25.3 % (37.0-47.0) L Mean Corpuscular Volume 86 FL (80-99) Mean Corpuscular Hemoglobin 30.7 PG (27.0-31.0) Mean Corpuscular Hemoglobin Concent 35.5 G/DL (32.0-36.0) Red Cell Distribution Width 13.8 % (11.6-14.8) Platelet Count 73 K/UL (150-450) L Mean Platelet Volume 10.6 FL (6.5-10.1) H Neutrophils (%) (Auto) % (45.0-75.0) Lymphocytes (%) (Auto) % (20.0-45.0) Monocytes (%) (Auto) % (1.0-10.0) Eosinophils (%) (Auto) % (0.0-3.0) Basophils (%) (Auto) % (0.0-2.0) Differential Total Cells Counted 100 Neutrophils % (Manual) 34 % (45-75) L Lymphocytes % (Manual) 18 % (20-45) L Monocytes % (Manual) 5 % (1-10) Eosinophils % (Manual) 0 % (0-3) Basophils % (Manual) 0 % (0-2) Metamyelocytes % 10 % (0-0) H Myelocytes % 6 % (0-0) H Blast Cells % 4 % (0-0) *H Band Neutrophils 23 % (0-8) H Nucleated Red Blood Cells 4 /100 WBC Platelet Estimate Decreased L Platelet Morphology Normal Polychromasia 1+ Sodium Level 144 MMOL/L (136-145) Potassium Level 3.0 MMOL/L (3.5-5.1) L Chloride Level 102 MMOL/L (98-107) Carbon Dioxide Level 35 MMOL/L (21-32) H Anion Gap 7 mmol/L (5-15) Blood Urea Nitrogen 17 mg/dL (7-18) Creatinine 0.6 MG/DL (0.55-1.30) Estimat Glomerular Filtration Rate > 60 mL/min (>60) Glucose Level 129 MG/DL (74-106) H Calcium Level 7.9 MG/DL (8.5-10.1) L Phosphorus Level 3.8 MG/DL (2.5-4.9) Magnesium Level 1.4 MG/DL (1.8-2.4) L Plan Problems: (1) Lightheaded (2) Hypokalemia (3) Large bowel obstruction Assessment & Plan: 64-year-old female with abdominal distention potential large bowel obstruction. Afebrile, hemodynamic stable, labs noted no leukocytosis no pain no bleeding. No prior abdominal surgeries. Nausea and emesis clear liquid. Decreased appetite. Cannot recall last flatus or BM. CT as below. No direct mass or abnormality identified but there is absolutely identifiable transition at the rectosigmoid area with proximal dilatation. A colonoscopy is warranted but though would be with definitive risk of potential perforation. GI consult pending. Replace electrolytes. N.p.o. IV fluids will await scope for findings. Conceivably may require surgical intervention. Thank you for let me participate in patient's care will follow with recommendations GI consider for scope 02/17 will be available for surgery in case of emergency high risk for perforation or complication and understands. but strongly recommend scope prior to surgery for etiology purposes. s/p ex lap. see op report recovering okay to downgrade to tele npo okay for ice chips iv fluids abx tomas to stay in until ambulatory heparin petechia plt down hold heparin scds cont abx trend labs trial liquid diet ?air leak but afebrile, hd stable, no wbc, shift improved. needs K replacement plt trending down petechia CT pending electrolytes improved CT with mets to omentum likely was obstructed for significant period of time prior to surgery and tumor with mets. liver okay but post op she is declining. unfortunately prognosis is guarded. asked her if she wanted me to call anyone and declined ct noted. fluid and gas in colon and rectum distal to anastomosis. possible occult leak? but no fevers, no wbc, and exam without tenderness. rectal tube ordered liquid scant output tpn discussed with heme. pending labs. recommended for hospice discussed her condition and decline. unsafe for surgical intervention at this time given plt/labs/decline asked if she wanted me to discuss or call family / friends and declined declining There are several circumscribed low-density nonenhancing cysts noted in the liver. The spleen is homogeneous. Gallbladder is without sludge or stone and there is no wall thickening. The pancreas is unremarkable. Adrenals are normal in morphology. The kidneys are normal in size, shape and axis. Small bowel loops are nondistended. The dominant abnormality is severe colonic distention containing air-fluid levels and stool debris. Dilated colon extends down to the rectosigmoid junction where there is an apparent transition. The rectal vault is nondistended with only a small amount of stool. No definite discernible mass is detected there is There is no free fluid or free air. No pathologic adenopathy demonstrated. Bladder is empty. There is no suspicious superficial soft tissue or osseous abnormality. IMPRESSION: SEVERE COLONIC DISTENTION WITH AIR-FLUID LEVELS AND STOOL DEBRIS. THERE IS APPARENT TRANSITION AT THE RECTOSIGMOID JUNCTION WITH A RELATIVELY EMPTY RECTAL VAULT WITH ONLY SMALL AMOUNT OF STOOL. NO DEFINITE DISCERNIBLE MASS AT THE TRANSITION POINT. RECOMMEND GI CONSULTATION AND CONSIDER COLONOSCOPY. (4) Colon cancer Assessment & Plan: Long discussion was had with the patient and medical teams today. Patient is progressively worsening increase oxygen requirement worsening labs initially leukopenia and now leukocytosis. Hematologic abnormality unknown and acute and severe postoperatively. Unable to find exact etiology and very concerning. Patient is awake alert responsive. Her abdomen is become less distended and her rectal tube is putting out liquid stool. She has no abdominal tenderness and states she is okay. I did explain to her recently multiple events slowly the she has stage IV cancer and we have discussed her current status. Patient has been adamant that she is doing well and improving though she is clinically declining. Patient initially at time of surgery and postoperatively was very clear that she did not want me to contact family. Today I reiterated to her the importance of discussing this with family as she is declining. Patient seems to slowly be grasping and understanding of the severity of her condition both beginning preoperatively and now postoperatively. She has allowed me permission to contact her family. I initially contacted Alysia her cousin in [place] who had asked me to contact Emory who is the e ldest cousin of Ms. Cagle. I spoke with Alysia and she consented to me speaking with her eldest cousin Emory. I spoke with Emory and examined to him the severity of her condition and her current status. Emory [phone] Alysia [phone] Swapnil Brito Mar 09, 2020 16:21
--- NOTE | 2020-03-09 17:54 | NUR ---
NURSE NOTES: Patient stable at this time. No s/sx of pain or distress.
--- NOTE | 2020-03-09 19:15 | NUR ---
NURSE HAND-OFF REPORT: Latest Vital Signs: Temperature 97.6 , Pulse 117 , B/P 117 /69 , Respiratory Rate 33 , O2 SAT 84 , Non-Rebreather, O2 Flow Rate 15.0 . Vital Sign Comment: STABLE EKG Rhythm: Sinus Tachycardia Rhythm change?: N MD Notified?: MD Response: Latest Scherer Fall Score: 20 Fall Risk: Low Risk Safety Measures: Call light Within Reach, Bed Alarm Zone 1, Side Rails Side Rails x3, Bed position Low and Locked. Fall Precautions: Yellow Socks Door Sign Patient Fall Education Report given to Connie GARZON. Plan of care endorsed.
--- NOTE | 2020-03-09 19:16 | NUR ---
NURSE NOTES: Received patient from RYANN Mims. Will continue plan of care.
[2020-03-09] MEDS: FAT EMULSION IV SCH ×2 (19:49)
[2020-03-09] MEDS: AMINO ACIDS IV SCH ×2 (19:49)
[2020-03-09] MEDS: DEXTROSE IV SCH ×2 (19:49)
[2020-03-09] MEDS: D5NS w/KCl 40mEq 1000ml 1,000 ML IV SCH (19:49)
[2020-03-09] MEDS: Dyna-Hex 2% Top Sol 2oz TOPIC SCH (19:49)
--- NOTE | 2020-03-09 20:00 | NUR ---
NURSE NOTES: Received patient on non-rebreather at 15L O2sat: 93%. Patient is awake and oriented to name. BP98/60, HR:107. Right upper arm PICC running TPN @ 69ml/hr, D5 1/2 NS w/40meq KCL running @ 31ml/hr and Lasix drip @ 10ml/hr. Left forearm 22g running TKO. Leiva catheter and rectal tube in place and draining. NPO status at the moment. Safety measures in place; bed low, locked and alarm is on.
--- NOTE | 2020-03-09 22:00 | NUR ---
NURSE NOTES: Turned and repositioned. IV lines changed. Patient easily awakens to stimuli. Lasix continues to run at 10ml/hr and TPN @ 69ml/hr and D5 1/2 NS @ 31ml/hr.
[2020-03-10] VITALS (23 sets, daily range): BP systolic 91–154; BP diastolic 46–96
--- NOTE | 2020-03-10 | NUR ---
NURSE NOTES: Accucheck 216- 4 units Novolog given subq. Repositioned.
--- NOTE | 2020-03-10 02:00 | NUR ---
NURSE NOTES: Vital signs stable. No signs of pain or distress.
--- NOTE | 2020-03-10 04:00 | NUR ---
NURSE NOTES: Blood drawn peripherally for AM results.
[2020-03-10] MEDS: NovoLOG Insulin Flexpen SUBQ SCH ×3 (06:00→18:00)
--- NOTE | 2020-03-10 06:00 | NUR ---
NURSE NOTES: Bed bath given, linens changes, turned and repositioned. Patient is comfortable.
[2020-03-10] MEDS: Zosyn 3.375gm q8h **Extended infusion IVPB SCH ×6 (06:08→21:42)
[2020-03-10 06:09] LABS: HEMATOCRIT 23.6 % (37.0-47.0); HEMOGLOBIN 8.3 G/DL (12.0-16.0); MEAN CORPUSCULAR VOLUME 88 FL (80-99); PLATELET COUNT 108 K/UL (150-450); RED BLOOD COUNT 2.68 M/UL (4.20-5.40); RED CELL DISTRIBUTION WIDTH 14.9 % (11.6-14.8)
[2020-03-10 06:27] LABS: BLOOD UREA NITROGEN 16 mg/dL (7-18); CALCIUM 7.8 MG/DL (8.5-10.1); CARBON DIOXIDE 36 MMOL/L (21-32); CHLORIDE 102 MMOL/L (98-107); CREATININE 0.6 MG/DL (0.55-1.30); PHOSPHORUS 3.6 MG/DL (2.5-4.9); SODIUM 144 MMOL/L (136-145)
[2020-03-10 06:40] LABS: POTASSIUM 2.7 MMOL/L (3.5-5.1)
[2020-03-10 06:48] LABS: WHITE BLOOD COUNT 25.8 K/UL (4.8-10.8)
--- NOTE | 2020-03-10 06:55 | NUR ---
NURSE NOTES: Informed Dr. Arnett @ [phone] regarding this mornings critical lab values: WBC:25.8 and Potassium:2.7. No orders at the moment. Will endorse to the AM shift
--- NOTE | 2020-03-10 07:09 | NUR ---
NURSE HAND-OFF REPORT: Latest Vital Signs: Temperature 97.5 , Pulse 114 , B/P 154 /90 , Respiratory Rate 33 , O2 SAT 98 , Non-Rebreather, O2 Flow Rate 15.0 . Vital Sign Comment: Stable EKG Rhythm: Sinus Tachycardia Rhythm change?: N Notified?: Yaneth Quintana MD Response: Latest Scherer Fall Score: 20 Fall Risk: Low Risk Safety Measures: Call light Within Reach, Bed Alarm Zone 1, Side Rails Side Rails x3, Bed position Low and Locked. Fall Precautions: Yellow Socks Door Sign Patient Fall Education Report given to .
--- NOTE | 2020-03-10 07:30 | NUR ---
NURSE NOTES: Patient stable AOx1 alert to self. No s/sx of pain or distress. Eyes FLORINDA. Cardiac sounds benign. ST on rn cardiac rehab. VS otherwise stable. Tachypneic on NRB saturating in high 90's. Unable to auscultate bowel sounds possibly secondary to recent bowel resection. LADARIUS PICC line with dressing dry and intact. TPN, fluids and zosyn infusing at this time. Peripheral IV patent and intact. [place] to mid-abdomen dry and intact open to air. BL radial pulses present. BL pedal pulses weak with +3 edema present. Restraints on with good ROM, sensation and circulation. Side rails upx2, call light within reach, bed low and locked.
--- NOTE | 2020-03-10 08:51 | Hematology/Onc Progress Note ---
Assessment/Plan Assessment/Plan Assessment and Recs # Stage IV adenocarcinoma of the colon - biopsy report shows pT3, N2b, M1, lesion with omental metastasis, tumor markers reviewed, just cea 8.5, as well as ct a/p reviewed --> operative report reviewed, per surg, surg ws 02/21/2020 --> currently functional status very poor, at this time hold off further rx in re to chemo --> tumor markers ordered, reviewed, only cea elev --> Ct a/p reviewed, no sig mets on scan, but does have omental mets, does show pneumoperitoneum --> current prognosis poor --> critically ill # Thrombocytopenia - potential causes multifactorial, evaluate liver and viral etiologies to begin, severe and acute, did get heparin but unlikely cause --> lactic acid 2.6, r/o sepsis, likely consumptive process --> Hep panel and HIV neg, HIT is negative too --> ct a/p reviewed --> Peripheral smear ordered to evaluate for blasts /schistocytes -->does show blasts, nucleated cell indicating bone marrow involvement of likely malignancy --> abx and other meds have been reviewed --> transfuse to keep plt >20k --> meds reviewed --> plt 212-->30-->18->8-->15-->12-->50-->40-->73-->108 --> DIC panel has been ordered--> elev lactic acid 4.8-> is wnl --> ABX zosyn --> transfuse 2 units 10/4 # Positive for acute popliteal deep venous thrombosis on the right --> cant anticoagulate given anemia, low plts --> hold off ivcf as likely risks outweight benefits, considering hospice # Anemia of chronic disease, malignancy --> anemia panel noted --> hgb 8.9-->9 # Large bowel obstruction --> due to above cancer --> s/p surg # Malnutrition --> s/p tpn # Hypokalemia --> replete with k # PALMER --> hypovolemic, now improved # Dvt ppx scds The timing of this note does not necessarily reflect the time of the patient was seen. Greatly appreciate consultation. Subjective Constitutional: Denies: no symptoms, chills, fever, malaise, weakness, other HEENT: Denies: no symptoms, eye pain, blurred vision, tearing, double vision, ear pain, ear discharge, nose pain, nose congestion, throat pain, throat swelling, mouth pain, mouth swelling, other Cardiovascular: Denies: no symptoms, chest pain, edema, irregular heart rate, lightheadedness, palpitations, syncope, other Respiratory: Denies: no symptoms, cough, shortness of breath, SOB with excertion, SOB at rest, sputum, wheezing, other Genitourinary: Denies: no symptoms, burning, discharge, frequency, flank pain, hematuria, incontinence, pain, urgency, other Neurologic/Psychiatric: Denies: no symptoms, anxiety, depressed, emotional problems, headache, numbness, paresthesia, pre-existing deficit, seizure, tingling, tremors, weakness, other Endocrine: Denies: no symptoms, excessive sweating, flushing, intolerance to cold, intolerance to heat, increased hunger, increased thirst, increased urine, unexplained weight gain, unexplained weight loss, other Hematologic/Lymphatic: Denies: no symptoms, anemia, easy bleeding, easy bruising, adenopathy, other Allergies: Coded Allergies: No Known Allergies (Unverified , 02/15/20) Subjective 02/28 asleep no bleeding, pending tumor markers, with decreased po intake 03/01 more awake dw RN at bedside this am, lactic acid remains elev, start on zosyn stat 03/02 is calm, comfortable, labs noted, tumor markers reviewed, no bm 03/03 labs reviewed, not eating much, imaging noted, new path results noted 03/05 dw rn in am, plt 15, will get 1 unit plts, no bleeding, path noted again 03/06 fatigued this am, labs pending, no major changes, was given plts yest per rn 03/07 fatigued on nonrebreather this am, k was given per rn critically low, labs noted 03/08 on nonrebreather, remains on vt k, tpn, no current bleeding, still critically ill 03/09 is on nonrebreather, no bleeding, meds reviewed, on abx 03/10 wbc is higher, bioethics has been called to eval, k low Objective Objective Current Medications Medications (Trade) Dose Ordered Sig/Fozia Route PRN Reason Start Time Stop Time Status Last Admin Dose Admin Acetaminophen (Tylenol) 650 mg Q6H PRN ORAL Mild Pain (Pain Scale 1-3) 02/18/20 17:15 03/19/20 17:14 Chlorhexidine Gluconate (Gail-Hex 2%) 1 applic DAILY@2000 TOPIC 02/25/20 20:00 05/25/20 19:59 03/09/20 19:49 Dextrose 1,000 ml @ 0 mls/hr Q24H PRN IV PN interrupted or unavailable 02/29/20 20:00 03/30/20 19:59 Dextrose (Dextrose 50%) 25 ml Q30M PRN IV Hypoglycemia 03/01/20 23:59 05/30/20 23:58 Dextrose (Dextrose 50%) 50 ml Q30M PRN IV Hypoglycemia 02/29/20 23:59 05/29/20 23:58 Dextrose/ Electrolytes 1,000 ml @ 31 mls/hr Q24H IV 02/29/20 20:00 03/30/20 19:59 03/09/20 19:49 Diphenhydramine HCl (Benadryl) 12.5 mg Q6H PRN IVP Itching/Pruritis 02/18/20 17:15 03/19/20 17:14 Fat Emulsion Intravenous 216 ml/Amino Acids/ Electrolytes/ Dextrose 1,656 ml @ 69 mls/hr Q24H IV 03/08/20 20:00 04/07/20 19:59 03/09/20 19:49 Furosemide 100 mg/ Dextrose 100 ml @ 10 mls/hr Q10H IV 03/07/20 12:00 04/06/20 11:59 03/10/20 00:01 Insulin Aspart (NovoLOG) Q6HR SUBQ 03/01/20 00:00 05/30/20 00:00 03/09/20 23:56 Meclizine HCl (Antivert) 25 mg TID PRN ORAL for dizziness 02/20/20 20:30 03/21/20 20:29 Metoprolol Tartrate 2.5 mg/ Dextrose 57.5 ml @ 130 mls/hr EVERY 12 HOURS IVPB 03/03/20 21:00 04/02/20 20:59 03/09/20 22:05 Ondansetron HCl (Zofran) 4 mg Q6H PRN IVP Nausea & Vomiting 02/18/20 17:15 03/19/20 17:14 Phytonadione (Vitamin K) 10 mg ONCE A WEEK SUBQ 03/07/20 09:00 06/05/20 08:59 03/07/20 08:58 Piperacillin Sod/ Tazobactam Sod 3.375 gm/Sodium Chloride 110 ml @ 27.5 mls/hr EVERY 8 HOURS IVPB 03/08/20 06:00 03/15/20 05:59 03/10/20 06:08 Potassium Chloride 100 ml @ 50 mls/hr Q2H IVPB 03/10/20 10:00 03/10/20 17:59 Promethazine HCl 50 mg/Sodium Chloride 111 ml @ 222 mls/hr Q6H PRN IVPB for dizziness 02/20/20 20:45 03/21/20 20:44 02/20/20 21:42 Last 24 Hour Vital Signs Date Time Temp Pulse Resp B/P (MAP) Pulse Ox O2 Delivery O2 Flow Rate FiO2 03/10/20 08:00 Non-Rebreather 15.0 Non-Rebreather 15.0 03/10/20 07:28 104 03/10/20 07:00 114 33 154/90 (111) 98 03/10/20 06:00 105 30 122/78 (93) 98 03/10/20 05:00 107 29 113/56 (75) 95 03/10/20 04:00 Non-Rebreather 15.0 Non-Rebreather 15.0 03/10/20 04:00 97.5 105 31 91/67 (75) 93 03/10/20 03:37 105 03/10/20 03:00 103 28 116/78 (91) 94 03/10/20 02:00 103 26 113/89 (97) 94 03/10/20 01:00 103 28 123/96 (105) 95 03/10/20 00:00 Non-Rebreather 15.0 Non-Rebreather 15.0 03/10/20 00:00 97.0 101 28 119/46 (70) 93 03/09/20 23:34 103 03/09/20 23:00 100 30 114/81 (92) 94 03/09/20 22:05 107 117/46 03/09/20 22:00 105 34 117/46 (69) 93 03/09/20 21:00 107 33 130/71 (90) 93 03/09/20 20:30 109 34 114/67 (83) 92 03/09/20 20:00 Non-Rebreather 15.0 Non-Rebreather 15.0 03/09/20 20:00 92 Non-Rebreather 15.0 100 03/09/20 20:00 108 31 98/60 (73) 93 03/09/20 19:16 107 03/09/20 19:00 117 33 117/69 (85) 84 03/09/20 18:00 111 29 106/64 (78) 93 03/09/20 17:00 113 32 109/59 (76) 96 03/09/20 16:00 97.6 03/09/20 16:00 111 03/09/20 16:00 Non-Rebreather 15.0 Non-Rebreather 15.0 03/09/20 16:00 112 31 111/67 (82) 94 03/09/20 15:00 116 33 104/68 (80) 97 03/09/20 14:00 114 32 124/80 (95) 97 03/09/20 13:00 113 30 135/98 (110) 03/09/20 12:00 110 03/09/20 12:00 111 25 111/81 (91) 99 03/09/20 12:00 97.4 03/09/20 12:00 Non-Rebreather 15.0 Non-Rebreather 15.0 03/09/20 11:00 110 33 119/80 (93) 94 03/09/20 10:00 107 33 116/75 (89) 94 03/09/20 09:00 105 32 110/64 (79) 97 03/09/20 08:58 119 119/63 03/09/20 08:00 116 30 109/71 (84) 98 03/09/20 08:00 97.3 03/09/20 08:00 Non-Rebreather 15.0 Non-Rebreather 15.0 03/09/20 08:00 120 03/09/20 07:41 90 Non-Rebreather 15.0 100 03/09/20 07:00 117 29 116/69 (85) 99 03/09/20 06:00 114 36 112/74 (87) 93 03/09/20 05:00 111 30 118/68 (85) 94 03/09/20 04:00 116 03/09/20 04:00 Non-Rebreather 15.0 Non-Rebreather 15.0 03/09/20 04:00 97.4 116 32 139/92 (108) 93 03/09/20 03:00 113 33 125/55 (78) 94 03/09/20 02:00 117 30 134/93 (107) 97 03/09/20 01:00 113 30 96/69 (78) 97 03/09/20 00:00 Non-Rebreather 15.0 Non-Rebreather 15.0 03/09/20 00:00 97.4 118 28 136/85 (102) 100 03/08/20 23:20 112 03/08/20 23:00 112 27 117/94 (102) 97 03/08/20 22:00 109 31 120/68 (85) 98 03/08/20 21:00 117 29 121/92 (102) 99 03/08/20 20:48 116 122/86 03/08/20 20:20 97 Non-Rebreather 15.0 100 03/08/20 20:00 Non-Rebreather 15.0 Non-Rebreather 15.0 03/08/20 20:00 97.8 118 31 112/72 (85) 98 03/08/20 19:39 117 03/08/20 19:00 116 31 129/75 (93) 97 03/08/20 18:00 120 29 123/52 (75) 100 03/08/20 17:00 117 27 124/91 (102) 100 03/08/20 16:00 118 31 132/77 (95) 99 03/08/20 16:00 Non-Rebreather Non-Rebreather 03/08/20 16:00 119 03/08/20 16:00 97.4 03/08/20 15:00 120 30 130/74 (92) 99 03/08/20 14:00 119 33 133/79 (97) 97 03/08/20 13:00 117 30 141/81 (101) 98 03/08/20 12:00 97.2 03/08/20 12:00 116 03/08/20 12:00 Non-Rebreather Non-Rebreather 03/08/20 12:00 115 28 104/55 (71) 98 03/08/20 11:00 114 29 124/88 (100) 98 03/08/20 10:00 110 29 118/84 (95) 98 03/08/20 09:30 104 30 114/68 (83) 98 03/08/20 09:00 118 29 112/78 (89) 100 Intake and Output 03/09/20 03/10/20 19:00 07:00 Intake Total 2156.2 ml 1419.753 ml Output Total 3100 ml 2670 ml Balance -943.8 ml -1250.247 ml IV Total 2156.2 ml 1419.753 ml Output Urine Total 3100 ml 2520 ml Stool Total 150 ml Labs Test 03/07/20 16:20 03/08/20 03:50 03/08/20 05:23 03/09/20 03:45 Sodium Level 145 MMOL/L (136-145) 143 MMOL/L (136-145) 144 MMOL/L (136-145) Potassium Level 3.2 MMOL/L (3.5-5.1) 2.8 MMOL/L (3.5-5.1) 3.0 MMOL/L (3.5-5.1) Chloride Level 105 MMOL/L (98-107) 104 MMOL/L (98-107) 102 MMOL/L (98-107) Carbon Dioxide Level 30 MMOL/L (21-32) 32 MMOL/L (21-32) 35 MMOL/L (21-32) Anion Gap 10 mmol/L (5-15) 8 mmol/L (5-15) 7 mmol/L (5-15) Blood Urea Nitrogen 16 mg/dL (7-18) 15 mg/dL (7-18) 17 mg/dL (7-18) Creatinine 0.4 MG/DL (0.55-1.30) 0.6 MG/DL (0.55-1.30) 0.6 MG/DL (0.55-1.30) Estimat Glomerular Filtration Rate > 60 mL/min (>60) > 60 mL/min (>60) > 60 mL/min (>60) Glucose Level 111 MG/DL (74-106) 153 MG/DL (74-106) 129 MG/DL (74-106) Calcium Level 7.3 MG/DL (8.5-10.1) 7.8 MG/DL (8.5-10.1) 7.9 MG/DL (8.5-10.1) Phosphorus Level 3.6 MG/DL (2.5-4.9) 3.8 MG/DL (2.5-4.9) White Blood Count 22.6 K/UL (4.8-10.8) Red Blood Count 2.92 M/UL (4.20-5.40) Hemoglobin 9.0 G/DL (12.0-16.0) Hematocrit 25.3 % (37.0-47.0) Mean Corpuscular Volume 86 FL (80-99) Mean Corpuscular Hemoglobin 30.7 PG (27.0-31.0) Mean Corpuscular Hemoglobin Concent 35.5 G/DL (32.0-36.0) Red Cell Distribution Width 13.8 % (11.6-14.8) Platelet Count 73 K/UL (150-450) Mean Platelet Volume 10.6 FL (6.5-10.1) Neutrophils (%) (Auto) % (45.0-75.0) Lymphocytes (%) (Auto) % (20.0-45.0) Monocytes (%) (Auto) % (1.0-10.0) Eosinophils (%) (Auto) % (0.0-3.0) Basophils (%) (Auto) % (0.0-2.0) Differential Total Cells Counted 100 Neutrophils % (Manual) 34 % (45-75) Lymphocytes % (Manual) 18 % (20-45) Monocytes % (Manual) 5 % (1-10) Eosinophils % (Manual) 0 % (0-3) Basophils % (Manual) 0 % (0-2) Metamyelocytes % 10 % (0-0) Myelocytes % 6 % (0-0) Blast Cells % 4 % (0-0) Band Neutrophils 23 % (0-8) Nucleated Red Blood Cells 4 /100 WBC Platelet Estimate Decreased Platelet Morphology Normal Polychromasia 1+ Magnesium Level 1.4 MG/DL (1.8-2.4) Test 03/09/20 05:40 03/10/20 04:00 POC Whole Blood Glucose 168 MG/DL (74-106) White Blood Count 25.8 K/UL (4.8-10.8) Red Blood Count 2.68 M/UL (4.20-5.40) Hemoglobin 8.3 G/DL (12.0-16.0) Hematocrit 23.6 % (37.0-47.0) Mean Corpuscular Volume 88 FL (80-99) Mean Corpuscular Hemoglobin 31.2 PG (27.0-31.0) Mean Corpuscular Hemoglobin Concent 35.2 G/DL (32.0-36.0) Red Cell Distribution Width 14.9 % (11.6-14.8) Platelet Count 108 K/UL (150-450) Mean Platelet Volume 10.4 FL (6.5-10.1) Neutrophils (%) (Auto) % (45.0-75.0) Lymphocytes (%) (Auto) % (20.0-45.0) Monocytes (%) (Auto) % (1.0-10.0) Eosinophils (%) (Auto) % (0.0-3.0) Basophils (%) (Auto) % (0.0-2.0) Sodium Level 144 MMOL/L (136-145) Potassium Level 2.7 MMOL/L (3.5-5.1) Chloride Level 102 MMOL/L (98-107) Carbon Dioxide Level 36 MMOL/L (21-32) Blood Urea Nitrogen 16 mg/dL (7-18) Creatinine 0.6 MG/DL (0.55-1.30) Estimat Glomerular Filtration Rate > 60 mL/min (>60) Glucose Level 129 MG/DL (74-106) Calcium Level 7.8 MG/DL (8.5-10.1) Phosphorus Level 3.6 MG/DL (2.5-4.9) Magnesium Level 1.9 MG/DL (1.8-2.4) Height (Feet): 5 Height (Inches): 4.00 Weight (Pounds): 113 Objective General: NAD HEENT: nc, at Neck: supple Chest:dec breath sounds bilaterally, FM++ Cardiovascular: RRR, no s3, s4 Abdomen: soft, nontender, nd, ++surgical site noted, c/d/i, healing ++ Extremities: no cce, normal range of motion Neuro: alert and oriented Kleynberg,Gustavo L. MD Mar 10, 2020 08:51
--- NOTE | 2020-03-10 09:00 | NUR ---
NURSE NOTES: Contacted Dr. Arnett again regarding potassium of 2.7. Orders received.
[2020-03-10] MEDS: Metoprolol Tartrate 2.5 MG in D5W 55 ML IVPB SCH ×2 (09:24→20:22)
[2020-03-10] MEDS ORDERED: Tubing IV Secondary IV ONE ×2 (09:30→18:11)
[2020-03-10] MEDS ORDERED: NS 275ml ONE ×2 (09:30→18:11)
--- NOTE | 2020-03-10 11:19 | General Progress Note ---
Subjective ROS Limited/Unobtainable: No Allergies: Coded Allergies: No Known Allergies (Unverified , 02/15/20) Objective Last 24 Hour Vital Signs Date Time Temp Pulse Resp B/P (MAP) Pulse Ox O2 Delivery O2 Flow Rate FiO2 03/10/20 11:00 104 29 111/89 (96) 91 03/10/20 10:00 99 33 123/77 (92) 93 03/10/20 09:24 108 131/61 03/10/20 09:00 111 30 131/61 (84) 96 03/10/20 08:00 108 29 135/76 (95) 93 03/10/20 08:00 Non-Rebreather 15.0 Non-Rebreather 15.0 03/10/20 07:28 104 03/10/20 07:00 114 33 154/90 (111) 98 03/10/20 06:00 105 30 122/78 (93) 98 03/10/20 05:00 107 29 113/56 (75) 95 03/10/20 04:00 Non-Rebreather 15.0 Non-Rebreather 15.0 03/10/20 04:00 97.5 105 31 91/67 (75) 93 03/10/20 03:37 105 03/10/20 03:00 103 28 116/78 (91) 94 03/10/20 02:00 103 26 113/89 (97) 94 03/10/20 01:00 103 28 123/96 (105) 95 03/10/20 00:00 Non-Rebreather 15.0 Non-Rebreather 15.0 03/10/20 00:00 97.0 101 28 119/46 (70) 93 03/09/20 23:34 103 03/09/20 23:00 100 30 114/81 (92) 94 03/09/20 22:05 107 117/46 03/09/20 22:00 105 34 117/46 (69) 93 03/09/20 21:00 107 33 130/71 (90) 93 03/09/20 20:30 109 34 114/67 (83) 92 03/09/20 20:00 Non-Rebreather 15.0 Non-Rebreather 15.0 03/09/20 20:00 92 Non-Rebreather 15.0 100 03/09/20 20:00 108 31 98/60 (73) 93 03/09/20 19:16 107 03/09/20 19:00 117 33 117/69 (85) 84 03/09/20 18:00 111 29 106/64 (78) 93 03/09/20 17:00 113 32 109/59 (76) 96 03/09/20 16:00 97.6 03/09/20 16:00 111 03/09/20 16:00 Non-Rebreather 15.0 Non-Rebreather 15.0 03/09/20 16:00 112 31 111/67 (82) 94 03/09/20 15:00 116 33 104/68 (80) 97 03/09/20 14:00 114 32 124/80 (95) 97 03/09/20 13:00 113 30 135/98 (110) 03/09/20 12:00 110 03/09/20 12:00 111 25 111/81 (91) 99 03/09/20 12:00 97.4 03/09/20 12:00 Non-Rebreather 15.0 Non-Rebreather 15.0 Intake and Output 03/09/20 03/10/20 19:00 07:00 Intake Total 2156.2 ml 1419.753 ml Output Total 3100 ml 2670 ml Balance -943.8 ml -1250.247 ml IV Total 2156.2 ml 1419.753 ml Output Urine Total 3100 ml 2520 ml Stool Total 150 ml Laboratory Tests 03/10/20 04:00: White Blood Count 25.8*H, Red Blood Count 2.68L, Hemoglobin 8.3L, Hematocrit 23.6L, Mean Corpuscular Volume 88, Mean Corpuscular Hemoglobin 31.2H, Mean Corpuscular Hemoglobin Concent 35.2, Red Cell Distribution Width 14.9H, Platelet Count 108L, Mean Platelet Volume 10.4H, Neutrophils (%) (Auto) , Lymphocytes (%) (Auto) , Monocytes (%) (Auto) , Eosinophils (%) (Auto) , Basophils (%) (Auto) , Differential Total Cells Counted 100, Neutrophils % (Manual) 40L, Lymphocytes % (Manual) 7L, Monocytes % (Manual) 1, Eosinophils % (Manual) 0, Basophils % (Manual) 0, Metamyelocytes % 6H, Myelocytes % 12H, Blast Cells % 2*H, Band Neutrophils 32H, Nucleated Red Blood Cells 1, Platelet Estimate DecreasedL, Platelet Morphology Normal, Anisocytosis 1+, Sodium Level 144, Potassium Level 2.7*L, Chloride Level 102, Carbon Dioxide Level 36H, Blood Urea Nitrogen 16, Creatinine 0.6, Estimat Glomerular Filtration Rate > 60, Glucose Level 129H, Calcium Level 7.8L, Phosphorus Level 3.6, Magnesium Level 1.9 Height (Feet): 5 Height (Inches): 4.00 Weight (Pounds): 113 General Appearance: lethargic EENT: normal ENT inspection Neck: normal alignment Cardiovascular: tachycardia Respiratory/Chest: decreased breath sounds Abdomen: hypoactive bowel sounds, distended, tender Extremities: swelling Assessment/Plan Problem List: (1) Large bowel obstruction ICD Codes: K56.609 - Unspecified intestinal obstruction, unspecified as to partial versus complete obstruction SNOMED: 929670662 (2) Hypokalemia ICD Codes: E87.6 - Hypokalemia SNOMED: 46804884 (3) Lightheaded ICD Codes: R42 - Dizziness and giddiness SNOMED: 380029581 (4) Pancytopenia ICD Codes: D61.818 - Other pancytopenia SNOMED: 184754249 (5) Colon cancer ICD Codes: C18.9 - Malignant neoplasm of colon, unspecified SNOMED: 909723808 Status: stable Assessment/Plan: stage 4 colon cancer with bowel obstruction s/p resection on TPN NPO abx per ID fu hem recs fu surg recs on restrains poor prognosis will Graeme Beavers MD Mar 10, 2020 11:19
--- NOTE | 2020-03-10 12:00 | NUR ---
NURSE NOTES: Patient stable at this time. Occasionally moans and shouts but states she is not in pain.
--- NOTE | 2020-03-10 12:04 | Pulmonology Progress Note ---
Subjective ROS Limited/Unobtainable: No Interval Events: S/p colectomy; followed by surgery; now in ICU Constitutional: Reports: no symptoms HEENT: Repors: no symptoms Respiratory: Reports: no symptoms Cardiovascular: Reports: no symptoms Gastrointestinal/Abdominal: Reports: constipation, bloating Genitourinary: Reports: no symptoms Allergies: Coded Allergies: No Known Allergies (Unverified , 02/15/20) All Systems: reviewed and negative except above Objective Last 24 Hour Vital Signs Date Time Temp Pulse Resp B/P (MAP) Pulse Ox O2 Delivery O2 Flow Rate FiO2 03/10/20 11:00 104 29 111/89 (96) 91 03/10/20 10:00 99 33 123/77 (92) 93 03/10/20 09:24 108 131/61 03/10/20 09:00 111 30 131/61 (84) 96 03/10/20 08:00 108 29 135/76 (95) 93 03/10/20 08:00 Non-Rebreather 15.0 Non-Rebreather 15.0 03/10/20 07:28 104 03/10/20 07:00 114 33 154/90 (111) 98 03/10/20 06:00 105 30 122/78 (93) 98 03/10/20 05:00 107 29 113/56 (75) 95 03/10/20 04:00 Non-Rebreather 15.0 Non-Rebreather 15.0 03/10/20 04:00 97.5 105 31 91/67 (75) 93 03/10/20 03:37 105 03/10/20 03:00 103 28 116/78 (91) 94 03/10/20 02:00 103 26 113/89 (97) 94 03/10/20 01:00 103 28 123/96 (105) 95 03/10/20 00:00 Non-Rebreather 15.0 Non-Rebreather 15.0 03/10/20 00:00 97.0 101 28 119/46 (70) 93 03/09/20 23:34 103 03/09/20 23:00 100 30 114/81 (92) 94 03/09/20 22:05 107 117/46 03/09/20 22:00 105 34 117/46 (69) 93 03/09/20 21:00 107 33 130/71 (90) 93 03/09/20 20:30 109 34 114/67 (83) 92 03/09/20 20:00 Non-Rebreather 15.0 Non-Rebreather 15.0 03/09/20 20:00 92 Non-Rebreather 15.0 100 03/09/20 20:00 108 31 98/60 (73) 93 03/09/20 19:16 107 03/09/20 19:00 117 33 117/69 (85) 84 03/09/20 18:00 111 29 106/64 (78) 93 03/09/20 17:00 113 32 109/59 (76) 96 03/09/20 16:00 97.6 03/09/20 16:00 111 03/09/20 16:00 Non-Rebreather 15.0 Non-Rebreather 15.0 03/09/20 16:00 112 31 111/67 (82) 94 03/09/20 15:00 116 33 104/68 (80) 97 03/09/20 14:00 114 32 124/80 (95) 97 03/09/20 13:00 113 30 135/98 (110) Intake and Output 03/09/20 03/10/20 19:00 07:00 Intake Total 2156.2 ml 1419.753 ml Output Total 3100 ml 2670 ml Balance -943.8 ml -1250.247 ml IV Total 2156.2 ml 1419.753 ml Output Urine Total 3100 ml 2520 ml Stool Total 150 ml General Appearance: no acute distress HEENT: normocephalic Respiratory: chest wall non-tender, lungs clear Cardiovascular: normal peripheral pulses Abdomen: non distended, absent bowel sounds Laboratory Tests 03/10/20 04:00: White Blood Count 25.8*H, Red Blood Count 2.68L, Hemoglobin 8.3L, Hematocrit 23.6L, Mean Corpuscular Volume 88, Mean Corpuscular Hemoglobin 31.2H, Mean Corpuscular Hemoglobin Concent 35.2, Red Cell Distribution Width 14.9H, Platelet Count 108L, Mean Platelet Volume 10.4H, Neutrophils (%) (Auto) , Lymphocytes (%) (Auto) , Monocytes (%) (Auto) , Eosinophils (%) (Auto) , Basophils (%) (Auto) , Differential Total Cells Counted 100, Neutrophils % (Manual) 40L, Lymphocytes % (Manual) 7L, Monocytes % (Manual) 1, Eosinophils % (Manual) 0, Basophils % (Manual) 0, Metamyelocytes % 6H, Myelocytes % 12H, Blast Cells % 2*H, Band Neutrophils 32H, Nucleated Red Blood Cells 1, Platelet Estimate DecreasedL, Platelet Morphology Normal, Anisocytosis 1+, Sodium Level 144, Potassium Level 2.7*L, Chloride Level 102, Carbon Dioxide Level 36H, Blood Urea Nitrogen 16, Creatinine 0.6, Estimat Glomerular Filtration Rate > 60, Glucose Level 129H, Calcium Level 7.8L, Phosphorus Level 3.6, Magnesium Level 1.9 Current Medications Medications (Trade) Dose Ordered Sig/Fozia Route PRN Reason Start Time Stop Time Status Last Admin Dose Admin Acetaminophen (Tylenol) 650 mg Q6H PRN ORAL Mild Pain (Pain Scale 1-3) 02/18/20 17:15 03/19/20 17:14 Chlorhexidine Gluconate (Gail-Hex 2%) 1 applic DAILY@2000 TOPIC 02/25/20 20:00 05/25/20 19:59 03/09/20 19:49 Dextrose 1,000 ml @ 0 mls/hr Q24H PRN IV PN interrupted or unavailable 02/29/20 20:00 03/30/20 19:59 Dextrose (Dextrose 50%) 25 ml Q30M PRN IV Hypoglycemia 03/01/20 23:59 05/30/20 23:58 Dextrose (Dextrose 50%) 50 ml Q30M PRN IV Hypoglycemia 02/29/20 23:59 05/29/20 23:58 Dextrose/ Electrolytes 1,000 ml @ 31 mls/hr Q24H IV 02/29/20 20:00 03/30/20 19:59 03/09/20 19:49 Diphenhydramine HCl (Benadryl) 12.5 mg Q6H PRN IVP Itching/Pruritis 02/18/20 17:15 03/19/20 17:14 Fat Emulsion Intravenous 216 ml/Amino Acids/ Electrolytes/ Dextrose 1,656 ml @ 69 mls/hr Q24H IV 03/08/20 20:00 04/07/20 19:59 03/09/20 19:49 Furosemide 100 mg/ Dextrose 100 ml @ 10 mls/hr Q10H IV 03/07/20 12:00 04/06/20 11:59 03/10/20 09:23 Insulin Aspart (NovoLOG) Q6HR SUBQ 03/01/20 00:00 05/30/20 00:00 03/09/20 23:56 Meclizine HCl (Antivert) 25 mg TID PRN ORAL for dizziness 02/20/20 20:30 03/21/20 20:29 Metoprolol Tartrate 2.5 mg/ Dextrose 57.5 ml @ 130 mls/hr EVERY 12 HOURS IVPB 03/03/20 21:00 04/02/20 20:59 03/10/20 09:24 Ondansetron HCl (Zofran) 4 mg Q6H PRN IVP Nausea & Vomiting 02/18/20 17:15 03/19/20 17:14 Phytonadione (Vitamin K) 10 mg ONCE A WEEK SUBQ 03/07/20 09:00 06/05/20 08:59 03/07/20 08:58 Piperacillin Sod/ Tazobactam Sod 3.375 gm/Sodium Chloride 110 ml @ 27.5 mls/hr EVERY 8 HOURS IVPB 03/08/20 06:00 03/15/20 05:59 03/10/20 06:08 Potassium Chloride 100 ml @ 50 mls/hr Q2H IVPB 03/10/20 10:00 03/10/20 17:59 03/10/20 09:25 Promethazine HCl 50 mg/Sodium Chloride 111 ml @ 222 mls/hr Q6H PRN IVPB for dizziness 02/20/20 20:45 03/21/20 20:44 02/20/20 21:42 Assessment/Plan Assessment/Plan IMPRESSION: 1. S/p laparotomy 2. Severe hypokalemia. Corrected 3. Hypertension. 4. Diuretic use. DISCUSSION: Replaced potassium. S/P laparotomy I will continue to follow carefully. Await return of bowel fxn GI and renal following Saturating better on NRBM On Lasix gtt Edema decreased Discussed with gen surgery Will re-attempt PO diet Discussed with surgery Grim prognosis DIscussed with Dr. Singh Bio[employer] meeting today regarding futile care Hanna Cline Omar Syed MD Mar 10, 2020 12:04
--- NOTE | 2020-03-10 12:48 | NUR ---
REPAIRER CONTROLLER TESTER NOTE Bioethics meeting was held to discuss pt's case at 12:15pm. This SW, DCM Tatiana Rushing, JAYLANO Maribel Alvarado, Dr. Zacarias, Dr. Sabillon, , Dr. Brito and Dr. Farr were present in the meeting. The committee agreed w/ Dr. Zacarias recommending DNR and DNI. Please refer Dr. Cortes's note.
--- NOTE | 2020-03-10 12:59 | General Progress Note ---
Progress Note Progress Note Bioethics Committee Meeting Consult referred by Dr. Zacarias who is the attending physician for this unfortunate 64 year old woman who lives alone and has no advance directive or relative empowered to make her medical decisions. She is hospitalized with a new diagnosis of stage 4 colon ca discovered at laparotomy and resection by Dr. Brito who observed metastatic disease to the omentum. Her post-operative course was complicated by respiratory distress and unexplained pancytopenia. Oncology was consulted and in agreement that no therapy would be indicated. Committee members asked pertinent questions about her prognosis and were in agreement that further aggressive care would be futile despite her relatively young age. At first the patient declined to have family members informed however recently advised Dr. Zacarias that she had relatives in [place] who could be told of her illness. They were contacted and stated that someone would travel to [place] however it was unclear when or if that would happen. The Committee was in agreement that she should be designated DNR/DNI insofar as given her advanced condition and complications, intubation and resuscitation would not improve and in fact would worsen her quality of life. Palliative care with morphine drip for comfort would be appropriate. Roney Cortes M.D. Chair, Bioethics Committee Roney Cortes MD Mar 10, 2020 12:59
--- NOTE | 2020-03-10 15:00 | NUR ---
NURSE NOTES: Medications given. Observed deterioration in condition. Breathing is now more labored and patient is still responsive but lethargic.
--- NOTE | 2020-03-10 16:58 | NUR ---
ACCOUNTS PAYABLE CLERKFREIGHT BOOKER SI:RESP FAILURE, RIGHT LEG DVT. 93.2 116 31 137/71 91% 15L NRBM FIO2 100% WBC 25.8 H/H 8.3/23.6 PLT 108 K+ 2.7 CA 7.8 IS;KCL IV TPN IV A24 ZOSYN IV Q8 LASIX IV Q10 LOPRESSOR IV Q12 ICU STATUS DCP;FROM HOME
--- NOTE | 2020-03-10 17:00 | NUR ---
NURSE NOTES: Patient cleaned and repositioned. No improvement in patient status. Breathing still labored.
--- NOTE | 2020-03-10 17:06 | Cardiac Electrophysiology PN ---
Assessment/Plan Assessment/Plan 1. Nonsustained VT 5 beats. No recurrence after hypokalemia corrected. EF 55%. On iv metoprolol 2.5 mg q 12 2. Sinus tach and anemia better on Metoprolol 2.5 iv bid and after PRBC 3. Bowel obstruction. S/P ex lap, left colectomy, mobilization of splenic flexure by Dr Brito, Gi and surgery. 4. Hypokalemia replaced with iv K and Mg. 5. PVCs and dizziness 6. Anemia with Hb 6.9. s/p PRBC 02/26/20 . S/P CT abdomen and pelvis 7. Respiratory failure. On 100% NRB FM. CXR reviewed. Change Lasix drip to Lasix 40 iv q 8 hr Right pleural effusion. May need thoracentesis 8. On Vit K weekly per Dr. Brito for TPN. 9. DNR,DNI RICHAR RN, Subjective Subjective In ICU on Lasix drip at 10 mg/hr and 100% NRB FM In NSR on Lopressor 2.5 iv bid. NPO on TPN and Lipids. Lethargic.Now DNR and DNI Objective Last 24 Hour Vital Signs Date Time Temp Pulse Resp B/P (MAP) Pulse Ox O2 Delivery O2 Flow Rate FiO2 03/10/20 16:00 116 03/10/20 15:00 96.2 117 31 114/72 (86) 94 03/10/20 14:00 93.6 116 30 131/78 (95) 97 03/10/20 13:00 94.5 109 27 133/87 (102) 91 03/10/20 12:02 107 03/10/20 12:00 93.2 106 29 137/71 (93) 94 03/10/20 12:00 Non-Rebreather 15.0 Non-Rebreather 15.0 03/10/20 11:00 104 29 111/89 (96) 91 03/10/20 10:00 99 33 123/77 (92) 93 03/10/20 09:24 108 131/61 03/10/20 09:00 111 30 131/61 (84) 96 03/10/20 08:00 108 29 135/76 (95) 93 03/10/20 08:00 Non-Rebreather 15.0 Non-Rebreather 15.0 03/10/20 07:28 104 03/10/20 07:00 114 33 154/90 (111) 98 03/10/20 06:00 105 30 122/78 (93) 98 03/10/20 05:00 107 29 113/56 (75) 95 03/10/20 04:00 Non-Rebreather 15.0 Non-Rebreather 15.0 03/10/20 04:00 97.5 105 31 91/67 (75) 93 03/10/20 03:37 105 03/10/20 03:00 103 28 116/78 (91) 94 03/10/20 02:00 103 26 113/89 (97) 94 03/10/20 01:00 103 28 123/96 (105) 95 03/10/20 00:00 Non-Rebreather 15.0 Non-Rebreather 15.0 03/10/20 00:00 97.0 101 28 119/46 (70) 93 03/09/20 23:34 103 03/09/20 23:00 100 30 114/81 (92) 94 03/09/20 22:05 107 117/46 03/09/20 22:00 105 34 117/46 (69) 93 03/09/20 21:00 107 33 130/71 (90) 93 03/09/20 20:30 109 34 114/67 (83) 92 03/09/20 20:00 Non-Rebreather 15.0 Non-Rebreather 15.0 03/09/20 20:00 92 Non-Rebreather 15.0 100 03/09/20 20:00 108 31 98/60 (73) 93 03/09/20 19:16 107 03/09/20 19:00 117 33 117/69 (85) 84 03/09/20 18:00 111 29 106/64 (78) 93 Intake and Output 03/09/20 03/10/20 19:00 07:00 Intake Total 2156.2 ml 1419.753 ml Output Total 3100 ml 2670 ml Balance -943.8 ml -1250.247 ml IV Total 2156.2 ml 1419.753 ml Output Urine Total 3100 ml 2520 ml Stool Total 150 ml Laboratory Tests Test 03/10/20 04:00 White Blood Count 25.8 K/UL (4.8-10.8) *H Red Blood Count 2.68 M/UL (4.20-5.40) L Hemoglobin 8.3 G/DL (12.0-16.0) L Hematocrit 23.6 % (37.0-47.0) L Mean Corpuscular Volume 88 FL (80-99) Mean Corpuscular Hemoglobin 31.2 PG (27.0-31.0) H Mean Corpuscular Hemoglobin Concent 35.2 G/DL (32.0-36.0) Red Cell Distribution Width 14.9 % (11.6-14.8) H Platelet Count 108 K/UL (150-450) L Mean Platelet Volume 10.4 FL (6.5-10.1) H Neutrophils (%) (Auto) % (45.0-75.0) Lymphocytes (%) (Auto) % (20.0-45.0) Monocytes (%) (Auto) % (1.0-10.0) Eosinophils (%) (Auto) % (0.0-3.0) Basophils (%) (Auto) % (0.0-2.0) Differential Total Cells Counted 100 Neutrophils % (Manual) 40 % (45-75) L Lymphocytes % (Manual) 7 % (20-45) L Monocytes % (Manual) 1 % (1-10) Eosinophils % (Manual) 0 % (0-3) Basophils % (Manual) 0 % (0-2) Metamyelocytes % 6 % (0-0) H Myelocytes % 12 % (0-0) H Blast Cells % 2 % (0-0) *H Band Neutrophils 32 % (0-8) H Nucleated Red Blood Cells 1 /100 WBC Platelet Estimate Decreased L Platelet Morphology Normal Anisocytosis 1+ Sodium Level 144 MMOL/L (136-145) Potassium Level 2.7 MMOL/L (3.5-5.1) *L Chloride Level 102 MMOL/L (98-107) Carbon Dioxide Level 36 MMOL/L (21-32) H Blood Urea Nitrogen 16 mg/dL (7-18) Creatinine 0.6 MG/DL (0.55-1.30) Estimat Glomerular Filtration Rate > 60 mL/min (>60) Glucose Level 129 MG/DL (74-106) H Calcium Level 7.8 MG/DL (8.5-10.1) L Phosphorus Level 3.6 MG/DL (2.5-4.9) Magnesium Level 1.9 MG/DL (1.8-2.4) Objective HEENT: No JVD Cardiovascular: RRR. No GRM Respiratory: Coarse Rhonchi Abdomen: Soft, non-tender. Jessica intact with no drain Extremities: 3 plus edema Peter Quintana MD Mar 10, 2020 17:06
--- NOTE | 2020-03-10 18:16 | NUR ---
INSURANCE CLINICALS/REVIEW FAXED TO [facility] FX [phone] PH [phone] OPT 1
--- NOTE | 2020-03-10 18:18 | Nephrology Progress Note ---
Assessment/Plan Plan #hypoxemic resp failure - on nonrebreather mask #Severe hypokalemia #Abdominal distention - bowel obstruction due to colonic mass- s/p resection #lactic acidosis #htn #Dehydration #HLD - remains on lasix drip - replete k and mag - on non rebreather mask - TPN - replete lytes - monitor lactic acidic level - replete K, elvi mag - IVF-base --D5NS + 40 kcl with TPN - replete K, mag and phos prn - NPO - monitor lytes - avoid nephrotoxins - gen surg eval Subjective ROS Limited/Unobtainable: No Constitutional: Denies: no symptoms, chills, diaphoresis, fever, malaise, weakness, other HEENT: Denies: no symptoms, eye pain, blurred vision, tearing, double vision, ear pain, ear discharge, nose pain, nose congestion, throat pain, throat swelling, mouth pain, mouth swelling, other Genitourinary: Denies: no symptoms, burning, discharge, frequency, flank pain, hematuria, incontinence, pain, urgency, other Neurologic/Psychiatric: Denies: no symptoms, anxiety, depressed, emotional problems, headache, numbness, paresthesia, pre-existing deficit, seizure, tingling, tremors, weakness, other Subjective on nonrebreather mask remains on on lasix drip K and mag repleted s/p resection CT with mets to omentum Objective Objective Last 24 Hour Vital Signs Date Time Temp Pulse Resp B/P (MAP) Pulse Ox O2 Delivery O2 Flow Rate FiO2 03/10/20 17:00 125 31 116/68 (84) 91 03/10/20 16:00 Non-Rebreather 15.0 Non-Rebreather 15.0 03/10/20 16:00 97.8 118 31 123/53 (76) 92 03/10/20 16:00 116 03/10/20 15:00 96.2 117 31 114/72 (86) 94 03/10/20 14:00 93.6 116 30 131/78 (95) 97 03/10/20 13:00 94.5 109 27 133/87 (102) 91 03/10/20 12:02 107 03/10/20 12:00 93.2 106 29 137/71 (93) 94 10/9/20 12:00 Non-Rebreather 15.0 Non-Rebreather 15.0 03/10/20 11:00 104 29 111/89 (96) 91 03/10/20 10:00 99 33 123/77 (92) 93 03/10/20 09:24 108 131/61 03/10/20 09:00 111 30 131/61 (84) 96 03/10/20 08:00 108 29 135/76 (95) 93 03/10/20 08:00 Non-Rebreather 15.0 Non-Rebreather 15.0 03/10/20 07:28 104 03/10/20 07:00 114 33 154/90 (111) 98 03/10/20 06:00 105 30 122/78 (93) 98 03/10/20 05:00 107 29 113/56 (75) 95 03/10/20 04:00 Non-Rebreather 15.0 Non-Rebreather 15.0 03/10/20 04:00 97.5 105 31 91/67 (75) 93 03/10/20 03:37 105 03/10/20 03:00 103 28 116/78 (91) 94 03/10/20 02:00 103 26 113/89 (97) 94 03/10/20 01:00 103 28 123/96 (105) 95 03/10/20 00:00 Non-Rebreather 15.0 Non-Rebreather 15.0 03/10/20 00:00 97.0 101 28 119/46 (70) 93 03/09/20 23:34 103 03/09/20 23:00 100 30 114/81 (92) 94 03/09/20 22:05 107 117/46 03/09/20 22:00 105 34 117/46 (69) 93 03/09/20 21:00 107 33 130/71 (90) 93 03/09/20 20:30 109 34 114/67 (83) 92 03/09/20 20:00 Non-Rebreather 15.0 Non-Rebreather 15.0 03/09/20 20:00 92 Non-Rebreather 15.0 100 03/09/20 20:00 108 31 98/60 (73) 93 03/09/20 19:16 107 03/09/20 19:00 117 33 117/69 (85) 84 Intake and Output 10/8/20 10/9/20 19:00 07:00 Intake Total 2156.2 ml 1419.753 ml Output Total 3100 ml 2670 ml Balance -943.8 ml -1250.247 ml IV Total 2156.2 ml 1419.753 ml Output Urine Total 3100 ml 2520 ml Stool Total 150 ml Laboratory Tests 03/10/20 04:00: White Blood Count 25.8*H, Red Blood Count 2.68L, Hemoglobin 8.3L, Hematocrit 23.6L, Mean Corpuscular Volume 88, Mean Corpuscular Hemoglobin 31.2H, Mean Corpuscular Hemoglobin Concent 35.2, Red Cell Distribution Width 14.9H, Platelet Count 108L, Mean Platelet Volume 10.4H, Neutrophils (%) (Auto) , Lymphocytes (%) (Auto) , Monocytes (%) (Auto) , Eosinophils (%) (Auto) , Basophils (%) (Auto) , Differential Total Cells Counted 100, Neutrophils % (Manual) 40L, Lymphocytes % (Manual) 7L, Monocytes % (Manual) 1, Eosinophils % (Manual) 0, Basophils % (Manual) 0, Metamyelocytes % 6H, Myelocytes % 12H, Blast Cells % 2*H, Band Neutrophils 32H, Nucleated Red Blood Cells 1, Platelet Estimate DecreasedL, Platelet Morphology Normal, Anisocytosis 1+, Sodium Level 144, Potassium Level 2.7*L, Chloride Level 102, Carbon Dioxide Level 36H, Blood Urea Nitrogen 16, Creatinine 0.6, Estimat Glomerular Filtration Rate > 60, Glucose Level 129H, Calcium Level 7.8L, Phosphorus Level 3.6, Magnesium Level 1.9 Height (Feet): 5 Height (Inches): 4.00 Weight (Pounds): 113 Yakelin Arnett M.D. Mar 10, 2020 18:18
--- NOTE | 2020-03-10 19:30 | NUR ---
NURSE HAND-OFF REPORT: Latest Vital Signs: Temperature 97.8 , Pulse 125 , B/P 116 /68 , Respiratory Rate 31 , O2 SAT 91 , Non-Rebreather, O2 Flow Rate 15.0 . Vital Sign Comment: Deteriorating EKG Rhythm: Sinus Tachycardia Rhythm change?: N Notified?: Yaneth Quintana MD Response: Latest Scherer Fall Score: 20 Fall Risk: Low Risk Safety Measures: Call light Within Reach, Bed Alarm Zone 1, Side Rails Side Rails x3, Bed position Low and Locked. Fall Precautions: Yellow Socks Door Sign Patient Fall Education Report given to Aimee GARZON. Patient deteriorating. Now in respiratory distress gasping for air. Tachypneic with RR in 30's and O2 sat at 91%. RN aware of code status change to DNR/DNI and transfer order to telemetry.
--- NOTE | 2020-03-10 19:35 | NUR ---
NURSE NOTES: Received report from Felicita GARZON. patient in bed on non-rebreather ,ask at 15L [id number] HOB elevated. easily arousable to verbal and tactile stimuli. DNR/DNI. ST on cardiac nurse practitioner [id number]. NPO. Rectal tube intact. Leiva draining. Right upper arm PICC line intact infusing TPN at 69cc/hr, D5NS with KCL 40 mEq at 31cc/hr and Lasix at 10cc/hr. Received patient on riana hugger. On P200 mattress for wound management. Bilateral wrist restraint checked. comfort measure provided. call light within easy reach. Patient with transfer order to Tele, will follow up. will continue plan of care.
[2020-03-10] MEDS: Dyna-Hex 2% Top Sol 2oz TOPIC SCH (20:06)
[2020-03-10] MEDS: D5NS w/KCl 40mEq 1000ml 1,000 ML IV SCH (20:06)
[2020-03-10] MEDS: DEXTROSE IV SCH ×2 (20:06)
[2020-03-10] MEDS: AMINO ACIDS IV SCH ×2 (20:06)
[2020-03-10] MEDS: FAT EMULSION IV SCH ×2 (20:06)
--- NOTE | 2020-03-10 20:33 | Surgery Progress Note ---
Surgery Progress Note Subjective Procedure Performed ex lap left colectomy mobilization of splenic flexure omentectomy primary anastomosis Additional Comments bioethics today input appreciated Objective Last 24 Hour Vital Signs Date Time Temp Pulse Resp B/P (MAP) Pulse Ox O2 Delivery O2 Flow Rate FiO2 03/10/20 20:22 132 109/71 03/10/20 19:00 129 33 113/67 (82) 92 03/10/20 18:00 124 32 116/66 (83) 91 03/10/20 17:00 125 31 116/68 (84) 91 03/10/20 16:00 Non-Rebreather 15.0 Non-Rebreather 15.0 03/10/20 16:00 97.8 118 31 123/53 (76) 92 03/10/20 16:00 116 03/10/20 15:00 96.2 117 31 114/72 (86) 94 03/10/20 14:00 93.6 116 30 131/78 (95) 97 03/10/20 13:00 94.5 109 27 133/87 (102) 91 03/10/20 12:02 107 03/10/20 12:00 93.2 106 29 137/71 (93) 94 03/10/20 12:00 Non-Rebreather 15.0 Non-Rebreather 15.0 03/10/20 11:00 104 29 111/89 (96) 91 03/10/20 10:00 99 33 123/77 (92) 93 03/10/20 09:24 108 131/61 03/10/20 09:00 111 30 131/61 (84) 96 03/10/20 08:00 108 29 135/76 (95) 93 03/10/20 08:00 Non-Rebreather 15.0 Non-Rebreather 15.0 03/10/20 07:28 104 03/10/20 07:00 114 33 154/90 (111) 98 03/10/20 06:00 105 30 122/78 (93) 98 03/10/20 05:00 107 29 113/56 (75) 95 03/10/20 04:00 Non-Rebreather 15.0 Non-Rebreather 15.0 03/10/20 04:00 97.5 105 31 91/67 (75) 93 03/10/20 03:37 105 03/10/20 03:00 103 28 116/78 (91) 94 03/10/20 02:00 103 26 113/89 (97) 94 03/10/20 01:00 103 28 123/96 (105) 95 03/10/20 00:00 Non-Rebreather 15.0 Non-Rebreather 15.0 03/10/20 00:00 97.0 101 28 119/46 (70) 93 03/09/20 23:34 103 03/09/20 23:00 100 30 114/81 (92) 94 03/09/20 22:05 107 117/46 03/09/20 22:00 105 34 117/46 (69) 93 03/09/20 21:00 107 33 130/71 (90) 93 I&O Intake and Output 03/09/20 03/10/20 19:00 07:00 Intake Total 2156.2 ml 1419.753 ml Output Total 3100 ml 2670 ml Balance -943.8 ml -1250.247 ml IV Total 2156.2 ml 1419.753 ml Output Urine Total 3100 ml 2520 ml Stool Total 150 ml Dressing: saturated Wound: clean, dry, intact Cardiovascular: RSR Respiratory: decreased breath sounds Abdomen: soft, non-tender, present bowel sounds Extremities: no edema, no tenderness, no cyanosis Laboratory Tests Test 03/10/20 04:00 White Blood Count 25.8 K/UL (4.8-10.8) *H Red Blood Count 2.68 M/UL (4.20-5.40) L Hemoglobin 8.3 G/DL (12.0-16.0) L Hematocrit 23.6 % (37.0-47.0) L Mean Corpuscular Volume 88 FL (80-99) Mean Corpuscular Hemoglobin 31.2 PG (27.0-31.0) H Mean Corpuscular Hemoglobin Concent 35.2 G/DL (32.0-36.0) Red Cell Distribution Width 14.9 % (11.6-14.8) H Platelet Count 108 K/UL (150-450) L Mean Platelet Volume 10.4 FL (6.5-10.1) H Neutrophils (%) (Auto) % (45.0-75.0) Lymphocytes (%) (Auto) % (20.0-45.0) Monocytes (%) (Auto) % (1.0-10.0) Eosinophils (%) (Auto) % (0.0-3.0) Basophils (%) (Auto) % (0.0-2.0) Differential Total Cells Counted 100 Neutrophils % (Manual) 40 % (45-75) L Lymphocytes % (Manual) 7 % (20-45) L Monocytes % (Manual) 1 % (1-10) Eosinophils % (Manual) 0 % (0-3) Basophils % (Manual) 0 % (0-2) Metamyelocytes % 6 % (0-0) H Myelocytes % 12 % (0-0) H Blast Cells % 2 % (0-0) *H Band Neutrophils 32 % (0-8) H Nucleated Red Blood Cells 1 /100 WBC Platelet Estimate Decreased L Platelet Morphology Normal Anisocytosis 1+ Sodium Level 144 MMOL/L (136-145) Potassium Level 2.7 MMOL/L (3.5-5.1) *L Chloride Level 102 MMOL/L (98-107) Carbon Dioxide Level 36 MMOL/L (21-32) H Blood Urea Nitrogen 16 mg/dL (7-18) Creatinine 0.6 MG/DL (0.55-1.30) Estimat Glomerular Filtration Rate > 60 mL/min (>60) Glucose Level 129 MG/DL (74-106) H Calcium Level 7.8 MG/DL (8.5-10.1) L Phosphorus Level 3.6 MG/DL (2.5-4.9) Magnesium Level 1.9 MG/DL (1.8-2.4) Plan Problems: (1) Lightheaded (2) Hypokalemia (3) Large bowel obstruction Assessment & Plan: 64-year-old female with abdominal distention potential large bowel obstruction. Afebrile, hemodynamic stable, labs noted no leukocytosis no pain no bleeding. No prior abdominal surgeries. Nausea and emesis clear liquid. Decreased appetite. Cannot recall last flatus or BM. CT as below. No direct mass or abnormality identified but there is absolutely identifiable transition at the rectosigmoid area with proximal dilatation. A colonoscopy is warranted but though would be with definitive risk of potential perforation. GI consult pending. Replace electrolytes. N.p.o. IV fluids will await scope for findings. Conceivably may require surgical intervention. Thank you for let me participate in patient's care will follow with recommendations GI consider for scope 02/17 will be available for surgery in case of emergency high risk for perforation or complication and understands. but strongly recommend scope prior to surgery for etiology purposes. s/p ex lap. see op report recovering okay to downgrade to tele npo okay for ice chips iv fluids abx tomas to stay in until ambulatory heparin petechia plt down hold heparin scds cont abx trend labs trial liquid diet ?air leak but afebrile, hd stable, no wbc, shift improved. needs K replacement plt trending down petechia CT pending electrolytes improved CT with mets to omentum likely was obstructed for significant period of time prior to surgery and tumor with mets. liver okay but post op she is declining. unfortunately prognosis is guarded. asked her if she wanted me to call anyone and declined ct noted. fluid and gas in colon and rectum distal to anastomosis. possible occult leak? but no fevers, no wbc, and exam without tenderness. rectal tube ordered liquid scant output tpn discussed with paul. pending labs. recommended for hospice discussed her condition and decline. unsafe for surgical intervention at this time given plt/labs/decline asked if she wanted me to discuss or call family / friends and declined declining There are several circumscribed low-density nonenhancing cysts noted in the liver. The spleen is homogeneous. Gallbladder is without sludge or stone and there is no wall thickening. The pancreas is unremarkable. Adrenals are normal in morphology. The kidneys are normal in size, shape and axis. Small bowel loops are nondistended. The dominant abnormality is severe colonic distention containing air-fluid levels and stool debris. Dilated colon extends down to the rectosigmoid junction where there is an apparent transition. The rectal vault is nondistended with only a small amount of stool. No definite discernible mass is detected there is There is no free fluid or free air. No pathologic adenopathy demonstrated. Bladder is empty. There is no suspicious superficial soft tissue or osseous abnormality. IMPRESSION: SEVERE COLONIC DISTENTION WITH AIR-FLUID LEVELS AND STOOL DEBRIS. THERE IS APPARENT TRANSITION AT THE RECTOSIGMOID JUNCTION WITH A RELATIVELY EMPTY RECTAL VAULT WITH ONLY SMALL AMOUNT OF STOOL. NO DEFINITE DISCERNIBLE MASS AT THE TRANSITION POINT. RECOMMEND GI CONSULTATION AND CONSIDER COLONOSCOPY. (4) Colon cancer Assessment & Plan: Long discussion was had with the patient and medical teams today. Patient is progressively worsening increase oxygen requirement worsening labs initially leukopenia and now leukocytosis. Hematologic abnormality unknown and acute and severe postoperatively. Unable to find exact etiology and very concerning. Patient is awake alert responsive. Her abdomen is become less distended and her rectal tube is putting out liquid stool. She has no abdominal tenderness and states she is okay. I did explain to her recently multiple events slowly the she has stage IV cancer and we have discussed her current status. Patient has been adamant that she is doing well and improving though she is clinically declining. Patient initially at time of surgery and postoperatively was very clear that she did not want me to contact family. Today I reiterated to her the importance of discussing this with family as she is declining. Patient seems to slowly be grasping and understanding of the severity of her condition both beginning preoperatively and now postoperatively. She has allowed me permission to contact her family. I initially contacted Alysia her cousin in [place] who had asked me to contact Emory who is the eldest cousin of Ms. Cagle. I spoke with Alysia and she consented to me speaking with her eldest cousin Emory. I spoke with Emory and examined to him the severity of her condition and her current status. Emory [phone] Alysia [phone] Swapnil Brito Mar 10, 2020 20:33
--- NOTE | 2020-03-10 21:45 | NUR ---
TRANSFER TO FLOOR: Patient transferred to Tele 201-2, per . Report given to . Belongings and medications given to . Family and or S/O informed of transfer.
--- NOTE | 2020-03-10 23:17 | NUR ---
NURSE NOTES: Received pt from RYANN Ortega. Pt asleep. Breathing labored and pt on non-rebreather mask satting at 85%. Bilateral soft restraints on. TPN and IV fluids running. RT was called. Bed in lowest position. Call light within reach. Will continue to monitor.
[2020-03-11] VITALS: BP 120/76
--- NOTE | 2020-03-11 01:20 | NUR ---
NURSE NOTES: Called and spoke with Dr. Zacarias regarding pts declining oxygen saturation and results of ABG. He declined Bipap recommendation and asked for comfort measures only on the patient. POL prepared. Will endorse to AM RN to get MD signature and Will continue to monitor.
[2020-03-11 04:00] VITALS: BP 132/82
[2020-03-11] MEDS: NovoLOG Insulin Flexpen SUBQ SCH ×3 (06:00→12:05)
[2020-03-11] MEDS: Zosyn 3.375gm q8h **Extended infusion IVPB SCH ×4 (06:00→14:06)
--- NOTE | 2020-03-11 07:18 | Hematology/Onc Progress Note ---
Assessment/Plan Assessment/Plan Assessment and Recs # Stage IV adenocarcinoma of the colon - biopsy report shows pT3, N2b, M1, lesion with omental metastasis, tumor markers reviewed, just cea 8.5, as well as ct a/p reviewed --> operative report reviewed, per surg, surg ws 02/21/2020 --> currently functional status very poor, at this time hold off further rx in re to chemo --> tumor markers reviewed, only cea elev --> Ct a/p reviewed, no sig mets on scan, but does have omental mets, does show pneumoperitoneum --> current prognosis poor --> critically ill # Thrombocytopenia - potential causes multifactorial, evaluate liver and viral etiologies to begin, severe and acute, did get heparin but unlikely cause --> lactic acid 2.6, r/o sepsis, likely consumptive process --> Hep panel and HIV neg, HIT is negative too --> ct a/p reviewed --> Peripheral smear ordered to evaluate for blasts /schistocytes -->does show blasts, nucleated cell indicating bone marrow involvement of likely malignancy --> abx and other meds have been reviewed --> transfuse to keep plt >20k --> meds reviewed --> plt 212-->30-->18->8-->15-->12-->50-->40-->73-->108--> 109k--> --> DIC panel has been ordered--> elev lactic acid 4.8-> is wnl --> ABX zosyn --> s/p blood transfuse 2 units 10/4 # Positive for acute popliteal deep venous thrombosis on the right --> cannot anticoagulate given anemia, low plts --> hold off ivcf as likely risks outweight benefits, considering hospice # Anemia of chronic disease, malignancy --> anemia panel noted --> hgb 8.9-->9--> 8.3 # Large bowel obstruction --> due to above cancer --> s/p surg # Malnutrition --> s/p tpn # Hypokalemia --> replete with k # PALMER --> hypovolemic, now improved # Dvt ppx scds The timing of this note does not necessarily reflect the time of the patient was seen. Greatly appreciate consultation. Subjective Allergies: Coded Allergies: No Known Allergies (Unverified , 02/15/20) Subjective Subjective 02/28 asleep no bleeding, pending tumor markers, with decreased po intake 03/01 more awake dw RN at bedside this am, lactic acid remains elev, start on zosyn stat 03/02 is calm, comfortable, labs noted, tumor markers reviewed, no bm 03/03 labs reviewed, not eating much, imaging noted, new path results noted 03/05 dw rn in am, plt 15, will get 1 unit plts, no bleeding, path noted again 03/06 fatigued this am, labs pending, no major changes, was given plts yest per rn 03/07 fatigued on nonrebreather this am, k was given per rn critically low, labs noted 03/08 on nonrebreather, remains on vt k, tpn, no current bleeding, still critically ill 03/09 is on nonrebreather, no bleeding, meds reviewed, on abx 03/10 wbc is higher, bioethics has been called to maria elena k low 03/11: on Non rebreather mask and restraints, getting morning blood drawn now, getting TPN feedings Objective Objective Current Medications Medications (Trade) Dose Ordered Sig/Fozia Route PRN Reason Start Time Stop Time Status Last Admin Dose Admin Acetaminophen (Tylenol) 650 mg Q6H PRN ORAL Mild Pain (Pain Scale 1-3) 02/18/20 17:15 03/19/20 17:14 Chlorhexidine Gluconate (Gail-Hex 2%) 1 applic DAILY@1999 TOPIC 02/25/20 20:00 05/25/20 19:59 03/10/20 20:06 Dextrose 1,000 ml @ 0 mls/hr Q24H PRN IV PN interrupted or unavailable 02/29/20 20:00 03/30/20 19:59 Dextrose (Dextrose 50%) 25 ml Q30M PRN IV Hypoglycemia 03/01/20 23:59 05/30/20 23:58 Dextrose (Dextrose 50%) 50 ml Q30M PRN IV Hypoglycemia 02/29/20 23:59 05/29/20 23:58 Dextrose/ Electrolytes 1,000 ml @ 31 mls/hr Q24H IV 02/29/20 20:00 03/30/20 19:59 03/10/20 20:06 Diphenhydramine HCl (Benadryl) 12.5 mg Q6H PRN IVP Itching/Pruritis 02/18/20 17:15 03/19/20 17:14 Fat Emulsion Intravenous 216 ml/Amino Acids/ Electrolytes/ Dextrose 1,656 ml @ 69 mls/hr Q24H IV 03/08/20 20:00 04/07/20 19:59 03/10/20 20:06 Insulin Aspart (NovoLOG) Q6HR SUBQ 03/01/20 00:00 05/30/20 00:00 03/11/20 06:00 Meclizine HCl (Antivert) 25 mg TID PRN ORAL for dizziness 02/20/20 20:30 03/21/20 20:29 Metoprolol Tartrate 2.5 mg/ Dextrose 57.5 ml @ 130 mls/hr EVERY 12 HOURS IVPB 03/03/20 21:00 04/02/20 20:59 03/10/20 20:22 Ondansetron HCl (Zofran) 4 mg Q6H PRN IVP Nausea & Vomiting 02/18/20 17:15 03/19/20 17:14 Phytonadione (Vitamin K) 10 mg ONCE A WEEK SUBQ 03/07/20 09:00 06/05/20 08:59 03/07/20 08:58 Piperacillin Sod/ Tazobactam Sod 3.375 gm/Sodium Chloride 110 ml @ 27.5 mls/hr EVERY 8 HOURS IVPB 03/08/20 06:00 03/15/20 05:59 03/11/20 06:00 Promethazine HCl 50 mg/Sodium Chloride 111 ml @ 222 mls/hr Q6H PRN IVPB for dizziness 02/20/20 20:45 03/21/20 20:44 02/20/20 21:42 Last 24 Hour Vital Signs Date Time Temp Pulse Resp B/P (MAP) Pulse Ox O2 Delivery O2 Flow Rate FiO2 03/11/20 04:00 Non-Rebreather 15.0 Non-Rebreather 15.0 03/11/20 04:00 98.1 116 16 132/82 (99) 88 03/11/20 04:00 120 03/11/20 00:00 125 03/11/20 00:00 98.9 124 28 120/76 (91) 88 03/11/20 00:00 Non-Rebreather 15.0 Non-Rebreather 15.0 03/10/20 21:30 122 31 111/65 (80) 96 03/10/20 21:00 125 37 127/81 (96) 96 03/10/20 20:22 132 109/71 03/10/20 20:00 132 03/10/20 20:00 99.7 131 34 105/57 (73) 93 03/10/20 20:00 Non-Rebreather 15.0 Non-Rebreather 15.0 03/10/20 19:00 129 33 113/67 (82) 92 03/10/20 18:00 124 32 116/66 (83) 91 03/10/20 17:00 125 31 116/68 (84) 91 03/10/20 16:00 Non-Rebreather 15.0 Non-Rebreather 15.0 03/10/20 16:00 97.8 118 31 123/53 (76) 92 03/10/20 16:00 116 03/10/20 15:00 96.2 117 31 114/72 (86) 94 03/10/20 14:00 93.6 116 30 131/78 (95) 97 03/10/20 13:00 94.5 109 27 133/87 (102) 91 03/10/20 12:02 107 03/10/20 12:00 93.2 106 29 137/71 (93) 94 03/10/20 12:00 Non-Rebreather 15.0 Non-Rebreather 15.0 03/10/20 11:00 104 29 111/89 (96) 91 03/10/20 10:00 99 33 123/77 (92) 93 03/10/20 09:24 108 131/61 03/10/20 09:00 111 30 131/61 (84) 96 03/10/20 08:00 108 29 135/76 (95) 93 03/10/20 08:00 Non-Rebreather 15.0 Non-Rebreather 15.0 03/10/20 07:28 104 03/10/20 07:00 114 33 154/90 (111) 98 03/10/20 06:00 105 30 122/78 (93) 98 03/10/20 05:00 107 29 113/56 (75) 95 10/9/20 04:00 Non-Rebreather 15.0 Non-Rebreather 15.0 03/10/20 04:00 97.5 105 31 91/67 (75) 93 03/10/20 03:37 105 03/10/20 03:00 103 28 116/78 (91) 94 03/10/20 02:00 103 26 113/89 (97) 94 03/10/20 01:00 103 28 123/96 (105) 95 03/10/20 00:00 Non-Rebreather 15.0 Non-Rebreather 15.0 03/10/20 00:00 97.0 101 28 119/46 (70) 93 03/09/20 23:34 103 03/09/20 23:00 100 30 114/81 (92) 94 03/09/20 22:05 107 117/46 03/09/20 22:00 105 34 117/46 (69) 93 03/09/20 21:00 107 33 130/71 (90) 93 03/09/20 20:30 109 34 114/67 (83) 92 03/09/20 20:00 Non-Rebreather 15.0 Non-Rebreather 15.0 03/09/20 20:00 92 Non-Rebreather 15.0 100 03/09/20 20:00 108 31 98/60 (73) 93 03/09/20 19:16 107 03/09/20 19:00 117 33 117/69 (85) 84 03/09/20 18:00 111 29 106/64 (78) 93 03/09/20 17:00 113 32 109/59 (76) 96 03/09/20 16:00 97.6 03/09/20 16:00 111 03/09/20 16:00 Non-Rebreather 15.0 Non-Rebreather 15.0 03/09/20 16:00 112 31 111/67 (82) 94 03/09/20 15:00 116 33 104/68 (80) 97 03/09/20 14:00 114 32 124/80 (95) 97 03/09/20 13:00 113 30 135/98 (110) 03/09/20 12:00 110 03/09/20 12:00 111 25 111/81 (91) 99 03/09/20 12:00 97.4 03/09/20 12:00 Non-Rebreather 15.0 Non-Rebreather 15.0 03/09/20 11:00 110 33 119/80 (93) 94 03/09/20 10:00 107 33 116/75 (89) 94 03/09/20 09:00 105 32 110/64 (79) 97 03/09/20 08:58 119 119/63 03/09/20 08:00 116 30 109/71 (84) 98 03/09/20 08:00 97.3 03/09/20 08:00 Non-Rebreather 15.0 Non-Rebreather 15.0 03/09/20 08:00 120 03/09/20 07:41 90 Non-Rebreather 15.0 100 Intake and Output 03/10/20 03/11/20 19:00 07:00 Intake Total 1805.08 ml 326 ml Output Total 2175 ml 1130 ml Balance -369.92 ml -804 ml IV Total 1805.08 ml 326 ml Output Urine Total 2175 ml 1130 ml # Voids 1 Labs Test 03/09/20 03:45 03/09/20 05:40 03/10/20 04:00 03/11/20 00:11 White Blood Count 22.6 K/UL (4.8-10.8) 25.8 K/UL (4.8-10.8) Red Blood Count 2.92 M/UL (4.20-5.40) 2.68 M/UL (4.20-5.40) Hemoglobin 9.0 G/DL (12.0-16.0) 8.3 G/DL (12.0-16.0) Hematocrit 25.3 % (37.0-47.0) 23.6 % (37.0-47.0) Mean Corpuscular Volume 86 FL (80-99) 88 FL (80-99) Mean Corpuscular Hemoglobin 30.7 PG (27.0-31.0) 31.2 PG (27.0-31.0) Mean Corpuscular Hemoglobin Concent 35.5 G/DL (32.0-36.0) 35.2 G/DL (32.0-36.0) Red Cell Distribution Width 13.8 % (11.6-14.8) 14.9 % (11.6-14.8) Platelet Count 73 K/UL (150-450) 108 K/UL (150-450) Mean Platelet Volume 10.6 FL (6.5-10.1) 10.4 FL (6.5-10.1) Neutrophils (%) (Auto) % (45.0-75.0) % (45.0-75.0) Lymphocytes (%) (Auto) % (20.0-45.0) % (20.0-45.0) Monocytes (%) (Auto) % (1.0-10.0) % (1.0-10.0) Eosinophils (%) (Auto) % (0.0-3.0) % (0.0-3.0) Basophils (%) (Auto) % (0.0-2.0) % (0.0-2.0) Differential Total Cells Counted 100 100 Neutrophils % (Manual) 34 % (45-75) 40 % (45-75) Lymphocytes % (Manual) 18 % (20-45) 7 % (20-45) Monocytes % (Manual) 5 % (1-10) 1 % (1-10) Eosinophils % (Manual) 0 % (0-3) 0 % (0-3) Basophils % (Manual) 0 % (0-2) 0 % (0-2) Metamyelocytes % 10 % (0-0) 6 % (0-0) Myelocytes % 6 % (0-0) 12 % (0-0) Blast Cells % 4 % (0-0) 2 % (0-0) Band Neutrophils 23 % (0-8) 32 % (0-8) Nucleated Red Blood Cells 4 /100 WBC 1 /100 WBC Platelet Estimate Decreased Decreased Platelet Morphology Normal Normal Polychromasia 1+ Sodium Level 144 MMOL/L (136-145) 144 MMOL/L (136-145) Potassium Level 3.0 MMOL/L (3.5-5.1) 2.7 MMOL/L (3.5-5.1) Chloride Level 102 MMOL/L (98-107) 102 MMOL/L (98-107) Carbon Dioxide Level 35 MMOL/L (21-32) 36 MMOL/L (21-32) Anion Gap 7 mmol/L (5-15) Blood Urea Nitrogen 17 mg/dL (7-18) 16 mg/dL (7-18) Creatinine 0.6 MG/DL (0.55-1.30) 0.6 MG/DL (0.55-1.30) Estimat Glomerular Filtration Rate > 60 mL/min (>60) > 60 mL/min (>60) Glucose Level 129 MG/DL (74-106) 129 MG/DL (74-106) Calcium Level 7.9 MG/DL (8.5-10.1) 7.8 MG/DL (8.5-10.1) Phosphorus Level 3.8 MG/DL (2.5-4.9) 3.6 MG/DL (2.5-4.9) Magnesium Level 1.4 MG/DL (1.8-2.4) 1.9 MG/DL (1.8-2.4) POC Whole Blood Glucose 168 MG/DL (74-106) Anisocytosis 1+ Test 03/11/20 00:23 03/11/20 00:35 03/11/20 06:45 Arterial Blood pH 7.545 (7.350-7.450) Arterial Blood Partial Pressure CO2 44.6 mmHg (35.0-45.0) Arterial Blood Partial Pressure O2 52.9 mmHg (75.0-100.0) Arterial Blood HCO3 37.7 mmol/L (22.0-26.0) Arterial Blood Oxygen Saturation 86.6 % (95-100) Arterial Blood Base Excess 13.9 (-2-2) Duong Test Positive Height (Feet): 5 Height (Inches): 4.00 Weight (Pounds): 113 Objective General: NAD HEENT: nc, at Neck: supple Chest:dec breath sounds bilaterally, FM++ Non Rebreather mask Cardiovascular: RRR, no s3, s4 Abdomen: soft, nontender, nd, ++surgical site noted, c/d/i, healing ++ Extremities: no cce, normal range of motion Neuro: lethargic Ingris Pruett [employer] Mar 11, 2020 07:18
[2020-03-11 07:26] LABS: HEMATOCRIT 20.6 % (37.0-47.0); HEMOGLOBIN 7.1 G/DL (12.0-16.0); MEAN CORPUSCULAR VOLUME 88 FL (80-99); PLATELET COUNT 148 K/UL (150-450); RED BLOOD COUNT 2.34 M/UL (4.20-5.40); RED CELL DISTRIBUTION WIDTH 15.1 % (11.6-14.8)
[2020-03-11 07:29] LABS: ANION GAP 2 mmol/L (5-15); BLOOD UREA NITROGEN 22 mg/dL (7-18); CALCIUM 7.9 MG/DL (8.5-10.1); CARBON DIOXIDE 37 MMOL/L (21-32); CHLORIDE 106 MMOL/L (98-107); CREATININE 0.7 MG/DL (0.55-1.30); PHOSPHORUS 4.5 MG/DL (2.5-4.9); POTASSIUM 3.7 MMOL/L (3.5-5.1); SODIUM 145 MMOL/L (136-145)
[2020-03-11 07:38] LABS: WHITE BLOOD COUNT 32.2 K/UL (4.8-10.8)
--- NOTE | 2020-03-11 07:46 | NUR ---
NURSE HAND-OFF REPORT: Important Events on Shift: pt placed on comfort care. saturation at 88% with non rebreather mask Patient Status: unstable Diet: tpn Pending Orders: y Pending Results/Labs:y Pending notification:y Latest Vital Signs: Temperature 98.1 , Pulse 116 , B/P 132 /82 , Respiratory Rate 16 , O2 SAT 88 , Non-Rebreather, O2 Flow Rate 15.0 . Vital Sign Comment: unstable saturation EKG Rhythm: Sinus Tachycardia Rhythm change?: N Notified?: Y -Dr. Lilian NEGRO Response: Latest Csherer Fall Score: 20 Fall Risk: Low Risk Safety Measures: Call light Within Reach, Bed Alarm Zone 1, Side Rails Side Rails x3, Bed position Low and Locked. Fall Precautions: Yellow Socks Door Sign Patient Fall Education Report given to RYANN Caraballo
--- NOTE | 2020-03-11 07:47 | NUR ---
NURSE NOTES: Received patient in bed asleep. Non rebreather mask on. PICC line on LADARIUS intact. IV line on left wrist intact. FC intact, draining yellow colored urine. Rectal tube intact. Post op site on the abdomen no bleeding, no ssx of infection. HOB elevated. Bed locked in low position. Call light within reach. Will continue plan of care. Addendum: 03/11/20 at 1025 by Rashmi Fagan RN NURSE NOTES: Bilateral soft wrist restraints in place, peripheral pulses palpable, no skin issues noted on site.
[2020-03-11 08:00] VITALS: BP 140/70
--- NOTE | 2020-03-11 08:00 | NUR ---
NURSE NOTES: Dr Zacarias called, RN asking regarding comfort measures notes of Dr Cortes. Left message, awaiting callback.
[2020-03-11] MEDS: Metoprolol Tartrate 2.5 MG in D5W 55 ML IVPB SCH (09:44)
--- NOTE | 2020-03-11 09:48 | NUR ---
BILLING CLINICIANACTIVITY COORDINATOR SI:RESP FAILURE, RIGHT LEG DVT. 99.7 125 37 140/70 88% 15L NRBM WBC 32.2 H/H 7.1/20.6 PLT 148 CO2 37 BUN 22 CA 7.9 MAG 1.7 IS;IV TPN Q24 ZOSYN IV Q8 METOPROLOL IV Q12 IVF D5W Q24 TRANSFERRED FROM ICU TO TELE 03/10/20 TELE STATUS DCP;FROM HOME
--- NOTE | 2020-03-11 10:14 | NUR ---
INSURANCE CLINICALS/REVIEW FAXED TO [facility] FX [phone] PH [phone] OPT 1
[2020-03-11 11:28] VITALS: BP 145/86
--- NOTE | 2020-03-11 14:05 | Pulmonology Progress Note ---
Subjective ROS Limited/Unobtainable: No Interval Events: S/p colectomy; followed by surgery; now in tele Constitutional: Reports: no symptoms HEENT: Repors: no symptoms Respiratory: Reports: no symptoms Cardiovascular: Reports: no symptoms Gastrointestinal/Abdominal: Reports: constipation, bloating Genitourinary: Reports: no symptoms Allergies: Coded Allergies: No Known Allergies (Unverified , 02/15/20) All Systems: reviewed and negative except above Objective Last 24 Hour Vital Signs Date Time Temp Pulse Resp B/P (MAP) Pulse Ox O2 Delivery O2 Flow Rate FiO2 03/11/20 12:00 109 03/11/20 11:28 96.7 111 28 145/86 (105) 93 03/11/20 09:44 119 140/70 03/11/20 09:00 Non-Rebreather 15.0 Non-Rebreather 15.0 03/11/20 08:00 97.3 119 26 140/70 (93) 95 03/11/20 08:00 116 03/11/20 04:00 Non-Rebreather 15.0 Non-Rebreather 15.0 03/11/20 04:00 98.1 116 16 132/82 (99) 88 03/11/20 04:00 120 03/11/20 00:00 125 03/11/20 00:00 98.9 124 28 120/76 (91) 88 03/11/20 00:00 Non-Rebreather 15.0 Non-Rebreather 15.0 03/10/20 21:30 122 31 111/65 (80) 96 03/10/20 21:00 125 37 127/81 (96) 96 03/10/20 20:22 132 109/71 03/10/20 20:00 132 03/10/20 20:00 99.7 131 34 105/57 (73) 93 03/10/20 20:00 Non-Rebreather 15.0 Non-Rebreather 15.0 03/10/20 19:00 129 33 113/67 (82) 92 03/10/20 18:00 124 32 116/66 (83) 91 03/10/20 17:00 125 31 116/68 (84) 91 03/10/20 16:00 Non-Rebreather 15.0 Non-Rebreather 15.0 03/10/20 16:00 97.8 118 31 123/53 (76) 92 03/10/20 16:00 116 03/10/20 15:00 96.2 117 31 114/72 (86) 94 Intake and Output 03/10/20 03/11/20 19:00 07:00 Intake Total 1805.08 ml 326 ml Output Total 2175 ml 1130 ml Balance -369.92 ml -804 ml IV Total 1805.08 ml 326 ml Output Urine Total 2175 ml 1130 ml # Voids 1 General Appearance: no acute distress HEENT: normocephalic Respiratory: chest wall non-tender, lungs clear Cardiovascular: normal peripheral pulses Abdomen: non distended, absent bowel sounds Laboratory Tests 03/11/20 00:11: POC Whole Blood Glucose [Pending] 03/11/20 00:23: POC Whole Blood Glucose [Pending] 03/11/20 00:35: Arterial Blood pH 7.545H, Arterial Blood Partial Pressure CO2 44.6, Arterial Blood Partial Pressure O2 52.9L, Arterial Blood HCO3 37.7H, Arterial Blood Oxygen Saturation 86.6*L, Arterial Blood Base Excess 13.9*H, Duong Test Positive 03/11/20 06:45: White Blood Count 32.2*H, Red Blood Count 2.34L, Hemoglobin 7.1L, Hematocrit 20.6L, Mean Corpuscular Volume 88, Mean Corpuscular Hemoglobin 30.2, Mean Corpuscular Hemoglobin Concent 34.2, Red Cell Distribution Width 15.1H, Platelet Count 148L, Mean Platelet Volume 10.2H, Neutrophils (%) (Auto) , Lymphocytes (%) (Auto) , Monocytes (%) (Auto) , Eosinophils (%) (Auto) , Basophils (%) (Auto) , Differential Total Cells Counted 100, Neutrophils % (Manual) 57, Lymphocytes % (Manual) 12L, Monocytes % (Manual) 3, Eosinophils % (Manual) 0, Basophils % (Manual) 0, Metamyelocytes % 3H, Myelocytes % 12H, Blast Cells % 1H, Band Neutrophils 12H, Platelet Estimate DecreasedL, Platelet Morphology Normal, Polychromasia 1+, Hypochromasia 1+, Anisocytosis 1+, Sodium Level 145, Potassium Level 3.7, Chloride Level 106, Carbon Dioxide Level 37H, Anion Gap 2L, Blood Urea Nitrogen 22H, Creatinine 0.7, Estimat Glomerular Filtration Rate > 60, Glucose Level 173H, Calcium Level 7.9L, Phosphorus Level 4.5, Magnesium Level 1.7L Current Medications Medications (Trade) Dose Ordered Sig/Fozia Route PRN Reason Start Time Stop Time Status Last Admin Dose Admin Acetaminophen (Tylenol) 650 mg Q6H PRN ORAL Mild Pain (Pain Scale 1-3) 02/18/20 17:15 03/19/20 17:14 Chlorhexidine Gluconate (Gail-Hex 2%) 1 applic DAILY@2000 TOPIC 02/25/20 20:00 05/25/20 19:59 03/10/20 20:06 Dextrose 1,000 ml @ 0 mls/hr Q24H PRN IV PN interrupted or unavailable 02/29/20 20:00 03/30/20 19:59 Dextrose (Dextrose 50%) 25 ml Q30M PRN IV Hypoglycemia 03/01/20 23:59 05/30/20 23:58 Dextrose (Dextrose 50%) 50 ml Q30M PRN IV Hypoglycemia 02/29/20 23:59 05/29/20 23:58 Dextrose/ Electrolytes 1,000 ml @ 31 mls/hr Q24H IV 02/29/20 20:00 03/30/20 19:59 03/10/20 20:06 Diphenhydramine HCl (Benadryl) 12.5 mg Q6H PRN IVP Itching/Pruritis 02/18/20 17:15 03/19/20 17:14 Fat Emulsion Intravenous 216 ml/Amino Acids/ Electrolytes/ Dextrose 1,656 ml @ 69 mls/hr Q24H IV 03/08/20 20:00 04/07/20 19:59 03/10/20 20:06 Insulin Aspart (NovoLOG) Q6HR SUBQ 03/01/20 00:00 05/30/20 00:00 03/11/20 12:05 Meclizine HCl (Antivert) 25 mg TID PRN ORAL for dizziness 02/20/20 20:30 03/21/20 20:29 Metoprolol Tartrate 2.5 mg/ Dextrose 57.5 ml @ 130 mls/hr EVERY 12 HOURS IVPB 03/03/20 21:00 04/02/20 20:59 03/11/20 09:44 Ondansetron HCl (Zofran) 4 mg Q6H PRN IVP Nausea & Vomiting 02/18/20 17:15 03/19/20 17:14 Phytonadione (Vitamin K) 10 mg ONCE A WEEK SUBQ 03/07/20 09:00 06/05/20 08:59 03/07/20 08:58 Piperacillin Sod/ Tazobactam Sod 3.375 gm/Sodium Chloride 110 ml @ 27.5 mls/hr EVERY 8 HOURS IVPB 03/08/20 06:00 03/15/20 05:59 03/11/20 06:00 Promethazine HCl 50 mg/Sodium Chloride 111 ml @ 222 mls/hr Q6H PRN IVPB for dizziness 02/20/20 20:45 03/21/20 20:44 02/20/20 21:42 Assessment/Plan Assessment/Plan IMPRESSION: 1. S/p laparotomy 2. Severe hypokalemia. Corrected 3. Hypertension. 4. Diuretic use. DISCUSSION: S/P laparotomy I will continue to follow carefully. Await return of bowel fxn GI and renal following Discussed with surgery Bioethics meeting yesterday Patient now DNR/DNI Discussed with cousin (Emory Strauss) He concurs with comfort care only WIll initiate MS gtt DC TPN DC all blood draws Transfer to med surg Hanna Cline Omar Syed MD Mar 11, 2020 14:05
[2020-03-11] MEDS ORDERED: PCA Morphine 1mg/ml 30 ML IV SCH (14:15)
[2020-03-11] MEDS ORDERED: Rate Change Narcotic Drip MISC PRN (14:30)
[2020-03-11] MEDS ORDERED: Narcotic Shift Volume MISC SCH (15:00)
--- NOTE | 2020-03-11 15:04 | NUR ---
NURSE NOTES: No pressure injuries noted, wound intervention changed to completed status. To start KETTLE OPERATOR HEAD morphine, real estate office supervisor and charge nurses aware, awaiting arrival of pump.
[2020-03-11 15:41] VITALS: BP 137/79
--- NOTE | 2020-03-11 15:45 | Cardiac Electrophysiology PN ---
Assessment/Plan Assessment/Plan 1. Nonsustained VT 5 beats. No recurrence after hypokalemia corrected. EF 55%. On iv metoprolol 2.5 mg q 12 2. Sinus tach due to sepsis and respiratory failure and anemia on Metoprolol 2.5 iv bid and got PRBC 3. Bowel obstruction. S/P left colectomy by Dr Brito, Gi and surgery. 4. Hypokalemia replaced with iv K and Mg. 5. PVCs and dizziness 6. Anemia with Hb 6.9. s/p PRBC 02/26/20 . S/P CT abdomen and pelvis 7. Respiratory failure. On 100% NRB FM. 8. On Vit K weekly per Dr. Brito for TPN. 9. DNR,DNI DW RN, Subjective Subjective Now comfort care and out of ICU off Lasix drip on 100% NRB FM. Morphine drip is pending Objective Last 24 Hour Vital Signs Date Time Temp Pulse Resp B/P (MAP) Pulse Ox O2 Delivery O2 Flow Rate FiO2 03/11/20 12:00 109 03/11/20 11:28 96.7 111 28 145/86 (105) 93 03/11/20 09:44 119 140/70 03/11/20 09:00 Non-Rebreather 15.0 Non-Rebreather 15.0 03/11/20 08:00 97.3 119 26 140/70 (93) 95 03/11/20 08:00 116 03/11/20 04:00 Non-Rebreather 15.0 Non-Rebreather 15.0 03/11/20 04:00 98.1 116 16 132/82 (99) 88 03/11/20 04:00 120 03/11/20 00:00 125 03/11/20 00:00 98.9 124 28 120/76 (91) 88 03/11/20 00:00 Non-Rebreather 15.0 Non-Rebreather 15.0 03/10/20 21:30 122 31 111/65 (80) 96 03/10/20 21:00 125 37 127/81 (96) 96 03/10/20 20:22 132 109/71 03/10/20 20:00 132 03/10/20 20:00 99.7 131 34 105/57 (73) 93 03/10/20 20:00 Non-Rebreather 15.0 Non-Rebreather 15.0 03/10/20 19:00 129 33 113/67 (82) 92 03/10/20 18:00 124 32 116/66 (83) 91 03/10/20 17:00 125 31 116/68 (84) 91 03/10/20 16:00 Non-Rebreather 15.0 Non-Rebreather 15.0 03/10/20 16:00 97.8 118 31 123/53 (76) 92 03/10/20 16:00 116 Intake and Output 03/10/20 03/11/20 19:00 07:00 Intake Total 1805.08 ml 326 ml Output Total 2175 ml 1130 ml Balance -369.92 ml -804 ml IV Total 1805.08 ml 326 ml Output Urine Total 2175 ml 1130 ml # Voids 1 Laboratory Tests Test 03/11/20 00:11 03/11/20 00:23 03/11/20 00:35 03/11/20 06:45 POC Whole Blood Glucose Pending Pending Arterial Blood pH 7.545 (7.350-7.450) Arterial Blood Partial Pressure CO2 44.6 mmHg (35.0-45.0) Arterial Blood Partial Pressure O2 52.9 mmHg (75.0-100.0) L Arterial Blood HCO3 37.7 mmol/L (22.0-26.0) H Arterial Blood Oxygen Saturation 86.6 % (95-100) *L Arterial Blood Base Excess 13.9 (-2-2) *H Duong Test Positive White Blood Count 32.2 K/UL (4.8-10.8) *H Red Blood Count 2.34 M/UL (4.20-5.40) L Hemoglobin 7.1 G/DL (12.0-16.0) L Hematocrit 20.6 % (37.0-47.0) L Mean Corpuscular Volume 88 FL (80-99) Mean Corpuscular Hemoglobin 30.2 PG (27.0-31.0) Mean Corpuscular Hemoglobin Concent 34.2 G/DL (32.0-36.0) Red Cell Distribution Width 15.1 % (11.6-14.8) H Platelet Count 148 K/UL (150-450) L Mean Platelet Volume 10.2 FL (6.5-10.1) H Neutrophils (%) (Auto) % (45.0-75.0) Lymphocytes (%) (Auto) % (20.0-45.0) Monocytes (%) (Auto) % (1.0-10.0) Eosinophils (%) (Auto) % (0.0-3.0) Basophils (%) (Auto) % (0.0-2.0) Differential Total Cells Counted 100 Neutrophils % (Manual) 57 % (45-75) Lymphocytes % (Manual) 12 % (20-45) L Monocytes % (Manual) 3 % (1-10) Eosinophils % (Manual) 0 % (0-3) Basophils % (Manual) 0 % (0-2) Metamyelocytes % 3 % (0-0) H Myelocytes % 12 % (0-0) H Blast Cells % 1 % (0-0) H Band Neutrophils 12 % (0-8) H Platelet Estimate Decreased L Platelet Morphology Normal Polychromasia 1+ Hypochromasia 1+ Anisocytosis 1+ Sodium Level 145 MMOL/L (136-145) Potassium Level 3.7 MMOL/L (3.5-5.1) Chloride Level 106 MMOL/L (98-107) Carbon Dioxide Level 37 MMOL/L (21-32) H Anion Gap 2 mmol/L (5-15) L Blood Urea Nitrogen 22 mg/dL (7-18) H Creatinine 0.7 MG/DL (0.55-1.30) Estimat Glomerular Filtration Rate > 60 mL/min (>60) Glucose Level 173 MG/DL (74-106) H Calcium Level 7.9 MG/DL (8.5-10.1) L Phosphorus Level 4.5 MG/DL (2.5-4.9) Magnesium Level 1.7 MG/DL (1.8-2.4) L Objective HEENT: No JVD Cardiovascular: RRR. No GRM Respiratory: Coarse Rhonchi Abdomen: Soft, non-tender. Jessica intact with no drain Extremities: 3 plus edema Peter Quintana MD Mar 11, 2020 15:45
[2020-03-11 16:00] VITALS: BP 137/79
--- NOTE | 2020-03-11 18:05 | NUR ---
NURSE NOTES: Patient transferred to [facility], report given to Becky GARZON. quality assurance monitor chassis removed. No new skin issues noted. belongings accounted for.
--- NOTE | 2020-03-11 18:15 | NUR ---
NURSE NOTES: Pt lying in bed w/bed in lowest position and call light within reach. Pt not alert; on NRB and w/decreased respirations. Attempted to take VS but no pulse palpated or heart beat auscultated. Notified charge nurse. Will continue to monitor.
[2020-03-11] MEDS ORDERED: NS 275ml ONE (18:29)
[2020-03-11] MEDS ORDERED: Tubing IV Secondary IV ONE (18:29)
--- NOTE | 2020-03-11 18:30 | NUR ---
PRONOUNCEMENT: No Code. Called to pronounce patient. Absence of spontaneous respirations, no cardiac or breath sounds on auscultation. Pupils fixed and dilated. No carotid pulse or chest movement. Patient at 1830. DR Zacarias notified Yordy . Family will be notified by Dr. Zacarias.
--- NOTE | 2020-03-11 19:30 | NUR ---
NURSE NOTES: Notified Dr. Zacarias of patient's passing at 1835; notified next of kin in [place], Alysiacristina Koch, of passing at 1840; per Alysia, [facility] [place] [facility] and speak to Nurse Blood Collector regarding arrangements. Notified [facility] of patient's passing at 1845 (Ref# [id number]) and filled out Record of form.
--- NOTE | 2020-03-11 20:08 | NUR ---
NURSE HAND-OFF: Important Events on Shift: Pt passed at end of shift; wasted morphine EXPENSE ANALYST syringe w/pharmacist. Endorsed post-mortem care to night time babysitter RN. Report given to RYANN Ayala.
--- NOTE | 2020-03-11 20:59 | Nephrology Progress Note ---
Assessment/Plan Plan #hypoxemic resp failure - on nonrebreather mask #Severe hypokalemia #Abdominal distention - bowel obstruction due to colonic mass- s/p resection #lactic acidosis #htn #Dehydration #HLD - off lasix drip - replete k and mag - TPN - replete lytes - monitor lactic acidic level - replete K, elvi mag - IVF-base --D5NS + 40 kcl with TPN - replete K, mag and phos prn - NPO - monitor lytes - avoid nephrotoxins - gen surg eval Subjective ROS Limited/Unobtainable: No Constitutional: Reports: weakness HEENT: Denies: no symptoms, eye pain, blurred vision, tearing, double vision, ear pain, ear discharge, nose pain, nose congestion, throat pain, throat swelling, mouth pain, mouth swelling, other Genitourinary: Denies: no symptoms, burning, discharge, frequency, flank pain, hematuria, incontinence, pain, urgency, other Neurologic/Psychiatric: Denies: no symptoms, anxiety, depressed, emotional problems, headache, numbness, paresthesia, pre-existing deficit, seizure, tingling, tremors, weakness, other Subjective transferred to floor off lasix drip K and mag repleted s/p resection CT with mets to omentum transitioned to comfort care Objective Objective Last 24 Hour Vital Signs Date Time Temp Pulse Resp B/P (MAP) Pulse Ox O2 Delivery O2 Flow Rate FiO2 03/11/20 16:00 98.8 107 28 137/79 (98) 93 03/11/20 15:41 107 28 93 03/11/20 12:00 109 03/11/20 11:28 96.7 111 28 145/86 (105) 93 03/11/20 09:44 119 140/70 03/11/20 09:00 Non-Rebreather 15.0 Non-Rebreather 15.0 03/11/20 08:00 97.3 119 26 140/70 (93) 95 03/11/20 08:00 116 03/11/20 04:00 Non-Rebreather 15.0 Non-Rebreather 15.0 03/11/20 04:00 98.1 116 16 132/82 (99) 88 03/11/20 04:00 120 03/11/20 00:00 125 03/11/20 00:00 98.9 124 28 120/76 (91) 88 03/11/20 00:00 Non-Rebreather 15.0 Non-Rebreather 15.0 03/10/20 21:30 122 31 111/65 (80) 96 03/10/20 21:00 125 37 127/81 (96) 96 Intake and Output 03/10/20 03/11/20 19:00 07:00 Intake Total 1805.08 ml 326 ml Output Total 2175 ml 1130 ml Balance -369.92 ml -804 ml IV Total 1805.08 ml 326 ml Output Urine Total 2175 ml 1130 ml # Voids 1 Laboratory Tests 03/11/20 00:11: POC Whole Blood Glucose [Pending] 03/11/20 00:23: POC Whole Blood Glucose [Pending] 03/11/20 00:35: Arterial Blood pH 7.545H, Arterial Blood Partial Pressure CO2 44.6, Arterial Blood Partial Pressure O2 52.9L, Arterial Blood HCO3 37.7H, Arterial Blood Oxygen Saturation 86.6*L, Arterial Blood Base Excess 13.9*H, Duong Test Positive 03/11/20 06:45: White Blood Count 32.2*H, Red Blood Count 2.34L, Hemoglobin 7.1L, Hematocrit 20.6L, Mean Corpuscular Volume 88, Mean Corpuscular Hemoglobin 30.2, Mean Corpuscular Hemoglobin Concent 34.2, Red Cell Distribution Width 15.1H, Platelet Count 148L, Mean Platelet Volume 10.2H, Neutrophils (%) (Auto) , Lymphocytes (%) (Auto) , Monocytes (%) (Auto) , Eosinophils (%) (Auto) , Basophils (%) (Auto) , Differential Total Cells Counted 100, Neutrophils % (Manual) 57, Lymphocytes % (Manual) 12L, Monocytes % (Manual) 3, Eosinophils % (Manual) 0, Basophils % (Manual) 0, Metamyelocytes % 3H, Myelocytes % 12H, Blast Cells % 1H, Band Neutrophils 12H, Platelet Estimate DecreasedL, Platelet Morphology Normal, Polychromasia 1+, Hypochromasia 1+, Anisocytosis 1+, Sodium Level 145, Potassium Level 3.7, Chloride Level 106, Carbon Dioxide Level 37H, Anion Gap 2L, Blood Urea Nitrogen 22H, Creatinine 0.7, Estimat Glomerular Filtration Rate > 60, Glucose Level 173H, Calcium Level 7.9L, Phosphorus Level 4.5, Magnesium Level 1.7L Height (Feet): 5 Height (Inches): 4.00 Weight (Pounds): 113 Yakelin Arnett M.D. Mar 11, 2020 20:59
--- NOTE | 2020-03-11 21:39 | NUR ---
NURSE NOTES: [place] [facility] [place]. All belongings brought with patient.
--- NOTE | 2020-03-13 17:29 | Discharge Summary ---
Discharge Summary Discharge Summary _ DATE OF ADMISSION: 02/15/2020 DATE OF DISCHARGE: 03/11/2020 REASON FOR ADMISSION: 64 years old female with past medical history of hypertension, presented to emergency department with complaint of lightheadedness , fatigue, lack of appetite for 1 week. She reported nausea, but no vomiting . No fever or chills. She denied dysuria or hematuria. No abdominal pain. No headache or neck pain. No cough or congestion. No chest pain or shortness of breath. No trauma or falls. Upon evaluation patient was tachycardic with heart rate 120. Laboratory work-up revealed no leukocytosis , stable hemoglobin, hematocrit and platelet count. Potassium 2.0. BUN 27, creatinine 1.4. Troponin 0.054 . EKG revealed sinus tachycardia with nonspecific ST depression in leads V2, V3, V4 and significantly diffuse ST flattening . Albumin 3.[address] scan of the abdomen and pelvis demonstrated severe colonic distention with air-fluid levels and stool debris's. Apparent transition at the rectosigmoid junction ; relatively empty rectal vault with only small amount of stool. No definite discernible mass at the transition point. Rapid COVID-19 was negative In emergency department patient received analgesic , antiemetic , started on replacement of potassium and admitted for further management. CONSULTANTS: valver Dr. Wheeler GI specialist Dr. Hirsch gear finisher Dr. Georgette Arnett nitroglycerin neutralizer/oncologist Dr. Mon surgery [facility] COURSE: Patient admitted to medical surgical floor . Patient was kept n.p.o. and started on the IV fluids . Surgeon and valver consulted. Potassium was further replaced. Echocardiogram was technically difficult study however revealed normal function of the anterior septum and posterior grubbs. Left ventricular ejection fraction could not be estimated as above although not visualized. No evidence of pericardial effusion. Patient undergone flexible sigmoidoscopy with biopsy on 02/17, which revealed invasive carcinoma. Patient subsequently later the same day undergone exploratory laparotomy with a left colectomy, mobilization of splenic flexure, partial omentectomy, primary [id number] colonic anastomosis and abdominal washout with closure. Pathology revealed invasive adenocarcinoma with clear surgical margins. i Patient noted to nonsustained V. tach of 5 beats, which happened during hypokalemia. No recurrence of the event , after hypokalemia corrected. Patient was on IV beta-blockade . Tachycardia was due to sepsis, respiratory failure and anemia. Patient received 2 units of PRBC while in the hospital. Counts were closely monitored. T Per nitroglycerin neutralizer patient has stage IV adenocarcinoma of the colon. Overall prognosis was poor. Patient was critically ill. Patient had anemia of chronic disease and malignancy. Hemoglobin and hematocrit were closely monitored with goal to keep hemoglobin above 7. Platelets were closely monitored ; thrombocytopenia felt to be probably due to consumptive process. Hepatitis panel and HIV test were negative. PF4 Ab screen was negative as well, Venous duplex revealed acute popliteal DVT of the right popliteal . Unable to start anticoagulation given low platelets. Postoperative the patient was kept n.p.o. and started on TPN. Pain management was addressed. Supportive care provided. Leukocytosis trending up . Overall prognosis was poor . Patient was deteriorating rapidly. CODE STATUS changed to DNR/DNon 03/10 . Patient was pronounced at 18: 30 on 03/11. Cause of : cardiopulmonary arrest FINAL DIAGNOSES: Acute hypoxemic respiratory failure requiring 100% nonrebreather mask Large bowel obstruction , secondary to obstructive tumor Stage 4 adenocarcinoma of the colon Status post flexible sigmoidoscopy Status post exploratory laparotomy with left colectomy Severe hypokalemia Dehydration Acute kidney injury Acute popliteal DVT on the right Anemia of chronic disease, malignancy Thrombocytopenia Nonsustained V. tach Hypertension Diuretic use Protein calorie malnutrition I have been assigned to dictate discharge summary for this account. I was not involved in the patient's management. Tiara Figueredo NP Mar 13, 2020 17:29
--- NOTE | 2020-03-14 16:29 | NUR ---
INSURANCE DC SUMMARY FAXED TO [facility] FX [phone] PH [phone] OPT 1
== END 2020-03-11 18:30 | disposition expired | DRG 329 ==
LOC: EDBD 09:45 → EMR 10:09 → 2E 14:03 → EDBEDREQ 15:00 → ICU 02-18 19:43 → 2E 02-19 16:17 → 2W 03-01 07:56 → 2E 03-02 20:28 → ICU 03-06 13:45 → 2E 03-10 21:50 → 3E 03-11 18:20
PROC: 0DBU0ZZ Excision of Omentum, Open Approach (ICD-10-PCS; principal; 2020-02-18 10:46)
PROC: 0DBG0ZZ Excision of Left Large Intestine, Open Approach (ICD-10-PCS; principal; 2020-02-18 10:46)
PROC: 0DBN0ZZ Excision of Sigmoid Colon, Open Approach (ICD-10-PCS; principal; 2020-02-18 10:46)
PROC: 0DDN8ZX Extraction of Sigmoid Colon, Via Natural or Artificial Opening Endoscopic, Diagnostic (ICD-10-PCS; principal; 2020-02-18 10:46)
PROC: 02HV33Z Insertion of Infusion Device into Superior Vena Cava, Percutaneous Approach (ICD-10-PCS; 2020-02-25)
PROC: B518ZZA Fluoroscopy of Superior Vena Cava, Guidance (ICD-10-PCS; 2020-02-25)
DX: C18.6 Malignant neoplasm of descending colon (principal); E43 Unspecified severe protein-calorie malnutrition; A41.9 Sepsis, unspecified organism; J96.01 Acute respiratory failure with hypoxia; C18.7 Malignant neoplasm of sigmoid colon; C78.6 Secondary malignant neoplasm of retroperitoneum and peritoneum; I47.2 Ventricular tachycardia; N17.9 Acute kidney failure, unspecified; I82.431 Acute embolism and thrombosis of right popliteal vein; D61.818 Other pancytopenia; E87.6 Hypokalemia; E86.0 Dehydration; E78.5 Hyperlipidemia, unspecified; I10 Essential (primary) hypertension; Z68.25 Body mass index [BMI] 25.0-25.9, adult; R00.2 Palpitations; D69.6 Thrombocytopenia, unspecified; D63.0 Anemia in neoplastic disease; Z20.828 Contact with and (suspected) exposure to other viral communicable diseases; Z66 Do not resuscitate; K64.8 Other hemorrhoids
CPT/HCPCS: 36415; 36573; 45381; 71045; 74018; 74176; 74177; 76937; 80048; 80053; 80076; 81003; 82150; 82248; 82306; 82378; 82728; 82803; 82962; 83010; 83540; 83550; 83605; 83615; 83690; 83735; 83880; 84100; 84439; 84443; 84478; 84481; 84484; 85007; 85025; 85362; 85384; 85610; 85651; 85730; 86140; 86300; 86703; 86705; 86709; 86803; 86850; 86900; 86901; 86920; 87340; 93005; 93306; 93970; 94003; 94150; 96365; 99285; J1815; J2370; J2405; J2710; J7030; J8499; U0002